=== PATIENT | female | born 1960 | race Caucasian/White ===

== ENCOUNTER 2016-07-21 16:36 | Emergency (ER) | payer OTHER ==
[~2016-07-21] VITALS: Wt 61.2 kg
[~2016-07-21 16:36] MED LIST: ABILIFY5 MG PO; ADVAIR 250/501 EA INH; ALBUTEROL0.09 MG/A2 IH; ALBUTEROL0.09 MG/A2 INH; ALBUTEROL2.5 MG/0.5 INH; AMBIEN10 MG PO; AMOXICILLIN500 MG PO; ATIVAN0.5 MG PO; ATIVAN1 MG PO; BREO ELLIPTA 11 EACH IH; CALCIUM600 M1 PO; CARAFATE1 G1 PO; CIPRO500 MG; CIPRO500 MG PO; CLARITIN10 MG PO; COMBIVENT RESPIM4 GM INH; COMBIVENT1 ARO IH; CYCLOBENZAPRINE10 MG PO; CYMBALTA60 M1 PO; CYMBALTA60 MG PO; DELTASONE10 MG PO; DITROPAN XL15 M1 PO; DOXEPIN25 MG PO; DOXYCYCLINE MO100 MG PO; DOXYCYCLINE100 M3 PO; EPIPEN 2-PAK1 MG/ML IJ; ESTRACE0.5 MG PO; EVISTA60 MG PO; HYDROCODONE BIT1 T11 PO; IBU800 M1 PO; K-DUR 2020 MEQ PO; K-TAB10 MEQ PO; KEFLEX500 MG PO; LAMICTAL100 MG; LAMICTAL200 MG PO; LASIX20 MG PO; LEVAQUIN750 M1 PO; LEXAPRO20 MG PO; LITHIUM CARBON150 MG PO; MACROBID100 M1 PO; MEDROL DOSEPAK4 MG PO; MELATONIN5 M1 SL; MELATONIN5 MG; MINIPRESS2 M1 PO; MOTRIN800 MG PO; Motrin,Rufen800 MG PO; NATURE'S BLEND F1 MG PO; NEURONTIN300 MG PO; NEURONTIN600 MG PO; NICODERM C21 MG/24 H TD; NICOTINE T21 MG/24 H T; NORCO 325 MG-51 TAB PO; NORCO 5-325 TA1 EACH PO; NYSTATIN100000 U/M PO; OMEPRAZOLE20 MG PO; ORASONE10 MG PO; OSCAL/D,OYSTER250 MG PO; OXYBUTYNIN ER15 MG PO; OXYGEN NAS; OYSTER SHELL C1 EAC3 PO; PERCOCET 325 MG1 TA2 PO; PREDNICOT20 MG PO; PREDNISONE10 MG PO; PREDNISONE20 MG PO; PREDNISONE50 MG PO; PROAIR HFA8.5 GM INH; PROVENTIL0.09 MG/AC IH; QVAR 80MCG/INH7.3 G1 IH; ROBITUSSIN AC 110 ML PO; SPIRIVA18 MCG IH; SYMBICORT1 AE1 INH; TRAMADOL HCL50 MG PO; VALIUM10 MG PO; VENTOLIN 02.5 MG/3 M INH; VICODIN 5/500 505 MG PO; VICODIN ES 7501 TAB PO; VICODIN1 TAB PO; VISTARIL25 MG PO; VISTARIL50 MG; VITAMIN D50000 UNIT PO; Ventolin 02.5 MG/3 M INH; ZANAFLEX4 M2 PO; ZITHROMAX Z PA250 MG PO; ZITHROMAX250 MG PO; ZOFRAN ODT4 MG SL; ZOFRAN4 MG PO; Zofran4 MG PO
[2016-07-21 16:39] VITALS: BP 120/65
== END 2016-07-21 18:03 | disposition home or self-care (01) ==
LOC: ED 16:36
DX: G43.909 Migraine, unspecified, not intractable, without status migrainosus (principal); F17.200 Nicotine dependence, unspecified, uncomplicated; Z88.1 Allergy status to other antibiotic agents; Z88.6 Allergy status to analgesic agent; Z90.49 Acquired absence of other specified parts of digestive tract; Z79.899 Other long term (current) drug therapy

== ENCOUNTER → 2016-08-13 | Emergency (ER) | payer OTHER ==
[~2016-08-13] VITALS: Ht 165.1 cm; Wt 63.5 kg
[~2016-08-13] MED LIST changes: +VIBRAMYCIN100 MG PO
--- NOTE | ~2016-08-13 | WRIGHTHP ---
[place], [place] PATIENT HISTORY AND PHYSICAL EXAM NAME: GABRIELA GARNER UNIT #: [id number] ROOM: 412 DOCTOR: MICKI BROWN DO BIRTHDATE: [birth year] DOS: 08/13/2016 The patient left AMA from the Emergency Room and was not admitted to the hospitalist service. MICKI BROWN DO CM:HISPHYS:PATIENT HISTORY AND PHYSICAL EXAMINATION 41 20 MICKI BROWN DO 08/13/161921 interface
[2016-08-13 12:27] VITALS: BP 117/81
[2016-08-13 13:05] LABS: BASO % 0.5 % (0.0-1.0); EOS # 0.1 10*3/uL (0.0-0.4); EOS % 0.6 % (1.0-4.0); HEMATOCRIT 44.3 % (37.0-47.0); HEMOGLOBIN 14.9 g/dl (12.0-16.0); LYMPH # 1.3 10*3/uL (1.3-4.4); MEAN CELL VOLUME 90.6 fl (81.0-99.0); MEAN CORPUSCULAR HGB 30.5 pg (27.0-31.0); MEAN CORPUSCULAR HGB CONC 33.6 g/dl (33.0-37.0); MEAN PLATELET VOLUME 9.8 fl (9.6-12.3); MONO # 0.7 10*3/uL (0.1-1.0); MONO % 8.3 % (3.0-9.0); NEUT # 5.8 10*3/uL (2.3-7.9); NEUT % 74.3 % (47.0-73.0); PLATELET COUNT AUTOMATED 340 10*3/uL (130-400); RED BLOOD COUNT 4.89 10*6/uL (4.10-5.10); RED CELL DISTRI WIDTH 13.8 % (0-14.5); WHITE BLOOD COUNT 7.8 10*3/uL (4.8-10.8)
[2016-08-13 13:13] LABS: INTERNATIONAL NORM RATIO 0.9 (2.0-3.5)
[2016-08-13 13:20] LABS: ALBUMIN 3.9 gm/dl (3.1-4.5); ALKALINE PHOSPHATASE 91 U/L (45-117); BILIRUBIN, TOTAL 0.3 mg/dl (0.2-1.0); BUN 12 mg/dl (7-24); C-REACTIVE PROTEIN 1.47 MG/DL (0-0.3); CARBON DIOXIDE 25 mmol/L (21-32); CHLORIDE 105 mmol/L (98-107); EST GLOM FILT AFRICAN AMERICAN > 60 ml/min; GLUCOSE 90 mg/dL (65-99); MAGNESIUM 2.2 mg/dL (1.5-2.1); POTASSIUM 4.2 mmol/L (3.5-5.1); SGOT/AST 16 IU/L (3-35); SGPT/ALT 21 U/L (12-78); SODIUM 140 mmol/L (136-145); TOTAL PROTEIN 7.7 gm/dL (6.4-8.2)
[2016-08-13 13:21] LABS: TROPONIN I < 0.015 ng/ml (<0.045)
[2016-08-13 13:34] VITALS: BP 99/50
== END ==
LOC: ED 12:05 → EDHOLD 14:41 → ED 14:41 → 4E 15:36 → EDHOLD 15:36 → 4E 16:26
PROVIDERS: Student in an Organized Health Care Education/Training Program
DX: R07.9 Chest pain, unspecified (principal); F17.210 Nicotine dependence, cigarettes, uncomplicated; G89.29 Other chronic pain; Z53.21 Procedure and treatment not carried out due to patient leaving prior to being seen by health care provider; M54.9 Dorsalgia, unspecified; Z88.6 Allergy status to analgesic agent; Z88.8 Allergy status to other drugs, medicaments and biological substances; Z90.710 Acquired absence of both cervix and uterus; Z90.49 Acquired absence of other specified parts of digestive tract; Z98.42 Cataract extraction status, left eye; Z98.41 Cataract extraction status, right eye; Z82.49 Family history of ischemic heart disease and other diseases of the circulatory system

== ENCOUNTER 2016-08-14 23:34 | Emergency (ER) | payer OTHER ==
[~2016-08-14] VITALS: Ht 167.6 cm; Wt 63.5 kg
[~2016-08-14 23:34] MED LIST changes: -VIBRAMYCIN100 MG PO
[2016-08-15 00:51] VITALS: BP 111/64
[2016-08-15] MEDS ORDERED: HYDROCODONE BIT1 T11 PO (01:52)
[2016-08-15] MEDS ORDERED: VIBRAMYCIN100 MG PO (01:52)
== END 2016-08-15 02:31 | disposition home or self-care (01) ==
LOC: ED 23:34
DX: S22.32XA Fracture of one rib, left side, initial encounter for closed fracture (principal); J44.1 Chronic obstructive pulmonary disease with (acute) exacerbation; F17.200 Nicotine dependence, unspecified, uncomplicated; Z88.6 Allergy status to analgesic agent; Z88.8 Allergy status to other drugs, medicaments and biological substances; Z79.899 Other long term (current) drug therapy; X58.XXXA Exposure to other specified factors, initial encounter; Y93.9 Activity, unspecified; Y92.9 Unspecified place or not applicable; Y99.9 Unspecified external cause status

== ENCOUNTER 2016-08-23 22:54 | Emergency (ER) | payer OTHER ==
[~2016-08-23] VITALS: Ht 167.6 cm; Wt 63.5 kg
[~2016-08-23 22:54] MED LIST changes: +VIBRAMYCIN100 MG PO
[2016-08-23 23:04] VITALS: BP 129/77
[2016-08-24] MEDS ORDERED: CYCLOBENZAPRINE10 MG PO (00:23)
[2016-08-24] MEDS ORDERED: PERCOCET 325 MG1 TA2 PO (00:23)
[2016-08-25] MEDS ORDERED: PERCOCET 325 MG1 TA2 PO (02:52)
== END 2016-08-24 00:26 | disposition home or self-care (01) ==
LOC: ED 22:54
DX: S22.32XD Fracture of one rib, left side, subsequent encounter for fracture with routine healing (principal); F17.210 Nicotine dependence, cigarettes, uncomplicated; Z88.6 Allergy status to analgesic agent; Z79.899 Other long term (current) drug therapy

== ENCOUNTER 2016-08-24 23:51 | Emergency (ER) | payer OTHER ==
[~2016-08-24] VITALS: Ht 167.6 cm; Wt 63.5 kg
[2016-08-24 23:56] VITALS: BP 110/77
[2016-08-25 00:26] LABS: BASO # 0.1 10*3/uL (0.0-0.1); BASO % 0.7 % (0.0-1.0); EOS # 0.1 10*3/uL (0.0-0.4); HEMATOCRIT 40.3 % (37.0-47.0); HEMOGLOBIN 13.3 g/dl (12.0-16.0); LYMPH # 3.5 10*3/uL (1.3-4.4); LYMPH % 29.4 % (27.0-41.0); MEAN CELL VOLUME 92.9 fl (81.0-99.0); MEAN CORPUSCULAR HGB 30.6 pg (27.0-31.0); MEAN PLATELET VOLUME 9.8 fl (9.6-12.3); MONO # 0.7 10*3/uL (0.1-1.0); MONO % 5.7 % (3.0-9.0); NEUT # 7.5 10*3/uL (2.3-7.9); PLATELET COUNT AUTOMATED 419 10*3/uL (130-400); RED BLOOD COUNT 4.34 10*6/uL (4.10-5.10); RED CELL DISTRI WIDTH 13.8 % (0-14.5); WHITE BLOOD COUNT 11.8 10*3/uL (4.8-10.8)
[2016-08-25 00:44] LABS: ALBUMIN 3.8 gm/dl (3.1-4.5); ALKALINE PHOSPHATASE 103 U/L (45-117); BILIRUBIN, TOTAL 0.2 mg/dl (0.2-1.0); BUN 12 mg/dl (7-24); CARBON DIOXIDE 29 mmol/L (21-32); CHLORIDE 105 mmol/L (98-107); CKMB 2.5 ng/ml (0.5-3.6); CPK 550 U/L (26-192); EST GLOM FILT AFRICAN AMERICAN > 60 ml/min; GLUCOSE 96 mg/dL (65-99); LDH 190 U/L (84-246); MAGNESIUM 1.7 mg/dL (1.5-2.1); POTASSIUM 3.9 mmol/L (3.5-5.1); SGOT/AST 22 IU/L (3-35); SGPT/ALT 17 U/L (12-78); SODIUM 140 mmol/L (136-145); TOTAL PROTEIN 7.4 gm/dL (6.4-8.2)
[2016-08-25 00:46] LABS: TROPONIN I < 0.015 ng/ml (<0.045)
[2016-08-25] MEDS ORDERED: PERCOCET 325 MG1 TA2 PO (02:52)
== END 2016-08-25 03:19 | disposition home or self-care (01) ==
LOC: ED 23:51
PROVIDERS: Physician Assistant
DX: M48.50XA Collapsed vertebra, not elsewhere classified, site unspecified, initial encounter for fracture (principal); S22.32XA Fracture of one rib, left side, initial encounter for closed fracture; J44.9 Chronic obstructive pulmonary disease, unspecified; G43.909 Migraine, unspecified, not intractable, without status migrainosus; F41.9 Anxiety disorder, unspecified; F32.9 Major depressive disorder, single episode, unspecified; F17.200 Nicotine dependence, unspecified, uncomplicated; Z88.6 Allergy status to analgesic agent; Z88.8 Allergy status to other drugs, medicaments and biological substances; Z79.899 Other long term (current) drug therapy; X58.XXXA Exposure to other specified factors, initial encounter; Y93.89 Activity, other specified; Y92.9 Unspecified place or not applicable; Y99.9 Unspecified external cause status

== ENCOUNTER 2016-09-17 08:08 | Emergency (ER) | payer OTHER ==
[~2016-09-17] VITALS: Ht 167.6 cm; Wt 63.5 kg
[2016-09-17 08:13] VITALS: BP 132/63
[2016-09-17] MEDS ORDERED: PREDNISONE50 MG PO (08:27)
== END 2016-09-17 09:22 | disposition home or self-care (01) ==
LOC: ED 08:08
DX: M54.32 Sciatica, left side (principal); F17.200 Nicotine dependence, unspecified, uncomplicated; G89.29 Other chronic pain; J44.9 Chronic obstructive pulmonary disease, unspecified; F32.9 Major depressive disorder, single episode, unspecified; G43.909 Migraine, unspecified, not intractable, without status migrainosus; F41.1 Generalized anxiety disorder; M19.90 Unspecified osteoarthritis, unspecified site; E55.9 Vitamin D deficiency, unspecified; Z85.828 Personal history of other malignant neoplasm of skin; Z98.890 Other specified postprocedural states; Z79.899 Other long term (current) drug therapy; Z88.5 Allergy status to narcotic agent; Z88.6 Allergy status to analgesic agent

== ENCOUNTER → 2017-01-10 | Outpatient (CLI) | payer OTHER ==
[2017-01-10 13:21] LABS: BASO # 0.1 10*3/uL (0.0-0.1); EOS # 0.1 10*3/uL (0.0-0.4); EOS % 1.2 % (1.0-4.0); HEMATOCRIT 38.4 % (37.0-47.0); HEMOGLOBIN 12.8 g/dl (12.0-16.0); LYMPH % 32.1 % (27.0-41.0); MEAN CELL VOLUME 95.5 fl (81.0-99.0); MEAN CORPUSCULAR HGB 31.8 pg (27.0-31.0); MEAN CORPUSCULAR HGB CONC 33.3 g/dl (33.0-37.0); MEAN PLATELET VOLUME 9.8 fl (9.6-12.3); MONO # 0.5 10*3/uL (0.1-1.0); MONO % 5.4 % (3.0-9.0); NEUT # 5.5 10*3/uL (2.3-7.9); NEUT % 60.1 % (47.0-73.0); PLATELET COUNT AUTOMATED 445 10*3/uL (130-400); RED BLOOD COUNT 4.02 10*6/uL (4.10-5.10); WHITE BLOOD COUNT 9.2 10*3/uL (4.8-10.8)
[2017-01-10 13:50] LABS: ALKALINE PHOSPHATASE 106 U/L (45-117); BUN 9 mg/dl (7-24); CHLORIDE 100 mmol/L (98-107); CREATININE 0.99 mg/dL (0.55-1.02); POTASSIUM 3.9 mmol/L (3.5-5.1); SGOT/AST 18 IU/L (3-35); SGPT/ALT 34 U/L (12-78); SODIUM 139 mmol/L (136-145); TOTAL PROTEIN 7.9 gm/dL (6.4-8.2)
== END | disposition home or self-care (01) ==
LOC: LAB 13:03
PROVIDERS: Family Medicine
DX: R07.9 Chest pain, unspecified (principal); E55.9 Vitamin D deficiency, unspecified; R53.82 Chronic fatigue, unspecified; R06.2 Wheezing

== ENCOUNTER → 2017-02-19 | Outpatient (CLI) | payer OTHER ==
[2017-02-20 08:14] LABS: ALPHA-1-ANTITRYPSIN, SERUM 147 mg/dL (90-200)
== END | disposition home or self-care (01) ==
LOC: LAB 10:10
PROVIDERS: Internal Medicine Critical Care Medicine
DX: J44.9 Chronic obstructive pulmonary disease, unspecified (principal)

== ENCOUNTER 2017-03-05 09:12 | Inpatient (IN) | payer OTHER ==
[~2017-03-05] VITALS: Ht 170.2 cm; Wt 69.6 kg
--- NOTE | ~2017-03-05 | CON ---
[place], [place] REPORT OF CONSULTATION NAME: GABRIELA GARNER [facility] #: [id number] UNIT #: [id number] ROOM: 532 DOCTOR: RUDI LARSEN MD BIRTHDATE: [birth year] DOS: 03/06/2017 ADDENDUM NOTE PULMONARY CONSULTATION, EVALUATION AND MANAGEMENT The consultation requested by the hospitalist services. The patient was independently seen and examined today. History was personally taken from the patient; physical examination performed. All the labs were reviewed. Assessment and management were personally completed for today's visit. The note done by the medical scientist was approved as well. REASON FOR CONSULTATION: Assess the patient for ongoing COPD exacerbation and other respiratory symptoms. HISTORY OF PRESENT ILLNESS: This is a 56-year-old female who has been admitted to the hospital under the hospitalist services on 03/05/2017. She presented to the Emergency Room because of progressive increased symptoms of shortness of breath occurring for the past few days. The symptoms were noted progressively worsened. She also developed a cough, which has been noted severe and nonproductive. She has been expectorating only small amount of scanty sputum, which was described to be thick and tenacious with a hard cough at times. She denies any symptoms of chest pain. Denies symptoms of hemoptysis. The patient denies any symptoms of chest trauma. The wheezing has been noted actively on admission. REVIEW OF SYSTEMS: Already completed by the medical scientist. PAST MEDICAL HISTORY: Known with history of: 1. Centrilobular emphysema for the patient, which was noted as severe with FEV1 of 48% with her assessment in my office on 02/18/2017. 2. History of allergic rhinitis. 3. History of generalized anxiety disorder and depression. PAST SURGICAL HISTORY: 1. Noted with complete hysterectomy for this patient in 2011. 2. Appendectomy in 1972. 3. Lumbar laminectomy. SOCIAL HISTORY: The patient is and lives at home. Smoking noted from the age of [age] years old, smoking up to 1.5 pack of cigarettes per day, for the past few days smoking about 5 cigarettes or less per day as per patient. Denies any history of alcohol use or illicit drug use or occupation related pulmonary exposure. She is , has 2 children, lives at home. FAMILY HISTORY: The patient's father at 73 with complication of COPD. The mother at the age of 6565 years old, complication related to the congestive heart failure. HOME MEDICATIONS: Listed at the time of admission use of Zanaflex, DuoNeb, [place], [place] REPORT OF CONSULTATION NAME: GABRIELA GARNER UNIT #: [id number] ROOM: [facility] DOCTOR: XIOMY GONSALEZ MD,[facility] BIRTHDATE: [birth year] vitamin D, hydroxyzine, Prazosin, ibuprofen, Oxybutynin ER, albuterol sulfate for this patient with the nebulizer p.r.n., loratadine, gabapentin, oxygen supplementation p.r.n. use 3 liters, Breo Ellipta, Lexapro, Vicodin-ES, Rexulti, Ativan 1 mg t.i.d. DRUG ALLERGY HISTORY: Noted as allergy to: 1. MORPHINE. 2. NAPROXEN 3. DAYPRO. PHYSICAL EXAMINATION: GENERAL: This is a 56-year-old female who has been currently sitting on the bed without any acute distress at this time. Height for the patient noted 5 feet 7 inches, weight 153 pounds, BMI 24. VITAL SIGNS: Normal temperature, respiratory rate of 16-20, heart rate 77-110, blood pressure 145/55-160/88. Pulse oxygen saturation of the patient recorded as 96% saturation on room air. HEENT: Head was atraumatic. Eyes nonicterus. NECK: Supple. CARDIOVASCULAR: S1, S2 audible. LUNGS: Noted with diffuse reduction in breath sounds bilaterally with expiratory wheezing in the lungs bilaterally. ABDOMEN: Soft, nontender. Bowel sounds present. EXTREMITIES: The patient was noted without any acute edema, clubbing or cyanosis. CENTRAL NERVOUS SYSTEM: Cranial nerves 2-12 intact. MUSCULOSKELETAL: No deformities. SKIN: No lesions or rashes. LABORATORY DATA: CBC of the patient on admission yesterday, WBC count 12.0. Remaining CBC normal. Lactic acid 1.5 yesterday. CMP of 03/05/2017, normal BUN and creatinine, troponin as well as LFTs. BMP this morning, glucose 177, normal BUN and creatinine. The PT, PTT this morning was normal. Troponin second and third sets yesterday were noted completely normal. One view chest x-ray of patient of 03/05/2017 was personally reviewed, shows changes of COPD and hyperinflation without any acute pulmonary infiltration. IMPRESSION: 1. The patient who has been currently admitted to the hospital noted with acute severe exacerbation of chronic obstructive pulmonary disease and acute tracheobronchitis. 2. Chronic heavy nicotine dependence as well. 3. History of general anxiety, depression. 4. Steroid-induced hyperglycemia. 5. Severe nonproductive cough, which has been noted progressive with possibility of mucus impaction of major airways. PLAN OF TREATMENT: Continue current dose of corticosteroids, bronchodilators, and oxygen supplementation and the other treatment as prescribed. The patient has been receiving Solu-Medrol 60 mg q.8 hours, which remains the same. [place], [place] REPORT OF CONSULTATION NAME: GABRIELA GARNER UNIT #: [id number] ROOM: 532 DOCTOR: XIOMY GONSALEZ MD,[facility] BIRTHDATE: [birth year] Continue noninvasive treatment for the patient to help clear the mucus of major airways with use of flutter valve and Mucinex. Ordered bronchoscopy, planned to be done in the morning. The patient discussed risks and benefits. She was agreeable for the procedure. All other treatment plan to be continued as well as previously. Usual care. Supportive plan of management and care. This consult note is to be attached to the one dictated by Dr. Stauffer. REASON FOR PULMONARY CONSULTATION: Shortness of breath. CHIEF COMPLAINT: Breath, chest heaviness. HISTORY OF PRESENT ILLNESS: The patient is a 56-year-old female with a history of COPD. She presents with complaints of worsening shortness of breath and chest tightness over the past several days. She states that she feels the chest tightness, worsens with exertion. She also complains of cough that is nonproductive. She is using oxygen at home with 3 liters in the evening as needed during the day. She is a smoker, but she has been attempting to quit and has recently decreased number of total cigarettes to about 5 cigarettes a day. She denies any vomiting, diarrhea, blurred vision, dysuria, fevers, any other symptoms. PAST MEDICAL HISTORY: Significant for chronic back pain, COPD, depression, fatty liver, folate deficiency, anxiety, chronic migraines, normocytic anemia, sciatica, syncope, vitamin D deficiency, small bowel obstruction, seasonal allergies. PAST SURGICAL HISTORY: Positive for back surgery, LEEP procedure, appendectomy, bilateral cataract extraction, hysterectomy, shoulder surgery twice on the right side. SOCIAL HISTORY: Does not drink drugs, but she is smoking and has done so for 40 years; however, is attempting to quit. FAMILY HISTORY: Significant for a sister who has lupus. Mother is at the age of 65 from heart disease. Father is as well at the age of 74 from respiratory failure. ALLERGIES: MORPHINE, NAPROXEN AND DAYPRO. HOME MEDICATIONS: She is currently on albuterol, vitamin D, calcium carbonate, Lexapro, Breo Ellipta, folic acid, Neurontin, Patterson, hydroxyzine, Motrin as needed, albuterol, loratadine, ____, oxybutynin, 3 liters of oxygen as needed, potassium tablets and Minipress, Rexulti and Zanaflex. REVIEW OF SYSTEMS: GENERAL: Denies fevers or chills. HEENT: Denies any change in vision, hearing loss ____ ear or nose pain. CARDIOVASCULAR: Denies any diaphoresis, palpitation, but she does admit chest pain/pressure. [place], [place] REPORT OF CONSULTATION NAME: GABRIELA GARNER UNIT #: [id number] ROOM: [facility] DOCTOR: XIOMY GONSALEZ MD,[facility] BIRTHDATE: [birth year] RESPIRATORY: Reports shortness of breath, cough, dyspnea on exertion and occasional production of sputum, but denies hemoptysis. ABDOMINAL: Denies any vomiting, diarrhea, chest pain, blood in stools. NEUROLOGIC: Denies lightheadedness, dizziness or confusion. GENITOURINARY: Denies dysuria or hematuria. PSYCHIATRIC: Denies any drug dependence, ____ depression and anxiety chronic in nature. ENDOCRINE: Denies polydipsia, denies heat or cold intolerance. SKIN: Denies any new lesions or rashes. PHYSICAL EXAMINATION: VITAL SIGNS: Temperature is 97.8, pulse is 77, respiratory rate is 18, blood pressure is 116/88, bedside pulse oximetry 98% on 2 liters nasal cannula. GENERAL APPEARANCE: Awake, alert, oriented, not in acute distress. HEAD: Normocephalic, atraumatic. EYES: PERRL. No lesions, no ulcerations, nonicteric. ENT: No lesions, no scars, no masses. Naris is patent. Oropharynx is clear. NECK: Without lesions, without masses, no ulcerations and trachea is midline. HEART: Regular rate and rhythm. No murmurs. No edema in lower extremities. LUNGS: Cough. Positive diminished lung sounds bilaterally with some scattered wheezes. No clear rhonchi. ABDOMEN: Soft, nontender, nondistended. EXTREMITIES: No clubbing, erythema or edema. NEUROLOGIC: Grossly intact. No focal deficits. PSYCHOLOGICAL: Good historian with good remote and recent memory. SKIN: Warm and dry, no rashes, no ulcerations. LABORATORY DATA: 1. CBC: WBC is 12.1, hemoglobin 10.9, hematocrit 32.7 and platelet count is 450. 2. Coagulation: PT 9.9, INR is 0.9, APTT 23.6. 3. Chemistries: CMP; sodium is 141, potassium is 4.1, carbon dioxide is 26, BUN is 12, creatinine is 0.82, estimated GFR is more than 60, glucose is 177, A1c is 5.4, magnesium 2.0, calcium 8.5, troponin less than 0.015. Triglycerides 96, cholesterol 179, LDL 106, VLDL 19, HDL 54. Vitamin B12 is 410, vitamin D 25-hydroxy is 26.5, folate is 21.66. TSH is 0.334. 4. Microbiology cultures are pending without any results at this time. 5. Chest x-ray showed no acute cardiopulmonary abnormalities per the radiologist's read. ASSESSMENT AND PLAN: 1. Acute bronchitis with chronic obstructive pulmonary disease exacerbation. 2. Tobacco abuse. 3. Sepsis. TREATMENT PLAN Continue with current Solu-Medrol at 60 q. 8, azithromycin, Rocephin, DuoNeb. Cultures are pending. Plan is to do a bronchoscopy tomorrow and please see Dr. Stauffer's note for further details. [place], [place] REPORT OF CONSULTATION NAME: GABRIELA GARNER UNIT #: [id number] ROOM: 532 DOCTOR: RUDI LARSEN MD BIRTHDATE: [birth year] RUDI STAUFFER MD CM:CONSTR:REPORT OF CONSULTATION 1353 03/07/17 0709 interface
--- NOTE | ~2017-03-05 | EKG ---
[place], [place] ELECTROCARDIOGRAM REPORT NAME: GABRIELA GARNER UNIT #: [id number] ROOM: 532 DOCTOR: XIOMY GONSALEZ MD,RUDI BIRTHDATE: [birth year] DOS: 03/05/2017 ELECTROCARDIOGRAM REPORT TIME: 0924 a.m. Normal sinus rhythm noted. Heart rate of 85 beats per minute with nonspecific ST-T changes and isolated PVC. RUDI STAUFFER MD CM:EKGRPT:ELECTROCARDIOGRAM REPORT [id number] RUDI GONSALEZ MD
--- NOTE | ~2017-03-05 | PROC NOTE ---
[place], [place] PROCEDURE NOTE NAME[facility] [id number] UNIT #: [id number] ROOM: 532 DOCTOR: XIOMY GONSALEZ MD,RUDI BIRTHDATE: [birth year] DOS: 03/07/2017 PREOPERATIVE DIAGNOSES: Persistent severe nonresolving cough for the patient with wheezing as well as shortness of breath. POSTOPERATIVE DIAGNOSES: Severe infection of the mucus plugs ____ endobronchial tree bilaterally. FINDINGS: Acute tracheobronchitis noted as well. There were no endobronchial obstructive lesions. PROCEDURE DESCRIPTION: Informed consent obtained for the patient. The patient brought to the OR and placed in supine position. Conscious sedation administered by the Anesthesia Department. After achieving appropriate sedation, airway introduced into the mouth. Bronchoscope advanced into the airway into laryngeal area. Epiglottis and vocal cords were seen. Vocal cords were moving symmetrically with movements. Bronchoscope advanced to the vocal cords into the tracheal lumen, noted moderate amount of very thick mucus secretion with some purulent secretions suctioned. All the secretions suctioned out with the help of normal saline wash. The brian was noted sharp. Right upper, right middle, right lower, left upper, lingular lower lobe bronchi were all examined. Thick plugs of the mucus were present in endobronchial tree bilaterally, suctioned out clear with normal saline wash, sent for culture. Procedure was tolerated by the patient without any complications. Postoperative findings will be discussed with the patient once the patient recovered the effects of acute sedation. RUDI STAUFFER MD CM:PROCNOTE:PROCEDURE NOTE [id number] RUDI GONSALEZ MD
--- NOTE | ~2017-03-05 | PR ---
[place], [place] PROGRESS NOTE NAME: GABRIELA GARNER [facility] #: [id number] UNIT #: [id number] ROOM: 532 DOCTOR: XIOMY GONSALEZ MD,RUDI BIRTHDATE: [birth year] DOS: 03/08/2017 SUBJECTIVE: The patient has been noted comfortable at this time without any distress. Bronchoscopy completed yesterday with marked improvement in the respiratory symptoms of cough was noted. Shortness of breath and wheezing was also noted significantly improved. OBJECTIVE: VITAL SIGNS: Blood pressure recorded 157/83, respiratory rate 20, heart rate 85 with a normal temperature. Pulse oxygen saturation on room air 95% saturation. HEENT: No new change. NECK: Supple. CARDIOVASCULAR: S1, S2 audible. LUNGS: Without any wheezing or crackles at this time. ABDOMEN: Soft, nontender. LABORATORY DATA: CBC: WBC count 16.6, hemoglobin 10.2, hematocrit 30.5, platelet count normal, WBC count normal, Gram stain bronchial washing, many white blood cells, few epithelial cells, few gram-positive cocci in clusters. Culture preliminary normal alexandra with bronchial washing, final results were pending. IMPRESSION: The patient with progressive resolution of acute exacerbation of chronic obstructive pulmonary disease, acute tracheobronchitis including cough post-bronchoscopy. PLAN OF TREATMENT: She could be considered for home discharge on oral antibiotics of the patient and tapering prednisone. No additional changes in the treatment needs to be done. Other supportive plan of care and management. RUDI STAUFFER MD CM:PNTRANS [id number] RUDI GONSALEZ MD 03/09/17 0509 interface
--- NOTE | ~2017-03-05 | PR ---
[place], [place] PROGRESS NOTE NAME: GABRIELA GARNER UNIT #: [id number] ROOM: 532 DOCTOR: CHANG LAMA DO BIRTHDATE: [birth year] DOS: 03/07/2017 SUBJECTIVE: The patient was evaluated today. She is awake, alert and in no acute distress. She states that her breathing feels like it is improved; however, she is still coughing and feels good. Denies any chest pain. Denies any nausea, vomiting or diarrhea. Has been n.p.o. since midnight. OBJECTIVE: VITAL SIGNS: Most recent vital signs, pulse was 85, respiratory rate 20, blood pressure 130/72, and bedside pulse oximetry 95% on room air. GENERAL: The patient is alert, awake, oriented, in no acute distress. PULMONARY: Rhonchi and rales could be heard bilaterally. There is some scattered wheezes. Lung sounds are diminished bilaterally. CARDIOVASCULAR: S1, S2 can be heard. Regular rate and rhythm. ABDOMEN: Nondistended, nontender. NEUROLOGIC: No acute neuro deficits. PSYCHOLOGICAL: Normal mood, normal affect. EXTREMITIES: No edema, erythema. LABORATORY DATA: CBC: WBC is 18.5, HGB 10.8, HCT 33.1, and platelets are 462. Sodium is 144, potassium 4.2, chloride 109, carbon dioxide 24, BUN 12, creatinine 0.68, GFR approximately more than 60, glucose 120, calcium 8.9. Blood cultures negative so far. IMPRESSION AND PLAN: 1. Exacerbation of chronic obstructive pulmonary disease with acute bronchitis. 2. Sepsis. 3. Tobacco abuse. We will continue with the treatment with steroids, azithromycin, Rocephin, and DuoNeb. Cultures are pending. Bronchoscopy was done earlier today. We will reevaluate tomorrow. AMER DO DAINA [place], [place] PROGRESS NOTE NAME: GABRIELA GARNER UNIT #: [id number] ROOM: 532 DOCTOR: CHANG LAMA DO BIRTHDATE: [birth year] RUDI STAUFFER MD CM:MAGDALENA [id number] CHANG LAMA DO 03/10/17 1052 interface
--- NOTE | ~2017-03-05 | PR ---
[place], [place] PROGRESS NOTE NAME: GABRIELA GARNER UNIT #: [id number] ROOM: 532 DOCTOR: RUDI LARSEN MD BIRTHDATE: [birth year] DOS: 03/07/2017 SUBJECTIVE: The patient was independently seen and examined with [id number] encounter. The patient was confirmed, physical examination performed, all the labs were reviewed. Any changes in medical management personally done for this patient in today's visit. The note done by the medical equipment sales was approved. She has been treated at this time for the acute exacerbation of COPD, remains with the same symptoms. The patient has suggested without any changes with severe nonproductive cough, inability to expectorate much sputum. Denies symptoms of chest pain, shortness of breath. The patient also remains about the same. OBJECTIVE: VITAL SIGNS: Recorded shows a normal temperature, respiratory rate 19, heart rate 84, blood pressure 155/68, pulse, oxygen saturation recorded as 96% saturation on room air. HEENT: Shows no new change. NECK: Supple. CARDIOVASCULAR: S1, S2 is audible. LUNGS: Noted general reduction in breath sounds, expiratory wheezing, no crackles. ABDOMEN: Soft, nontender. LABORATORY DATA: BMP was noted as normal. CBC this morning, WBC count 18.5, hemoglobin 10.8, hematocrit 33.1, platelet count of 462,000. IMPRESSION: 1. Acute severe exacerbation of chronic obstructive pulmonary disease with acute tracheobronchitis worsening leukocytosis, most likely steroid effect. Preoperative bronchoscopy already noted n.p.o. 2. History of chronic nicotine dependence. PLAN OF MANAGEMENT: Proceed with the bronchoscopy as planned without any changes. All other supportive therapy, plan of management to be continued as previously. Usual care, other supportive, plan of therapy and other treatment as well. Addition of treatment changes will be made based on the progression of the illness. [place], [place] PROGRESS NOTE NAME: GABRIELA GARNER UNIT #: [id number] ROOM: 532 DOCTOR: RUDI LARSEN MD BIRTHDATE: [birth year] RUDI STAUFFER MD CM:PNTRANS [id number] RUDI GONSALEZ MD 03/07/17 1123 interface
[2017-03-05 09:18] VITALS: BP 142/66
[2017-03-05 09:29] VITALS: BP 121/75
[2017-03-05] MEDS ORDERED: NORCO 7.5-3251 EACH PO (09:44)
[2017-03-05] MEDS ORDERED: REXULTI3 MG PO (09:45)
[2017-03-05 09:49] LABS: BASO # 0.1 10*3/uL (0.0-0.1); BASO % 0.7 % (0.0-1.0); EOS # 0.1 10*3/uL (0.0-0.4); EOS % 0.9 % (1.0-4.0); HEMOGLOBIN 12.4 g/dl (12.0-16.0); LYMPH % 24.8 % (27.0-41.0); MEAN CELL VOLUME 95.9 fl (81.0-99.0); MEAN CORPUSCULAR HGB 32.1 pg (27.0-31.0); MEAN CORPUSCULAR HGB CONC 33.5 g/dl (33.0-37.0); MEAN PLATELET VOLUME 9.5 fl (9.6-12.3); MONO # 0.9 10*3/uL (0.1-1.0); MONO % 7.4 % (3.0-9.0); NEUT # 7.9 10*3/uL (2.3-7.9); NEUT % 65.9 % (47.0-73.0); PLATELET COUNT AUTOMATED 459 10*3/uL (130-400); RED BLOOD COUNT 3.86 10*6/uL (4.10-5.10); RED CELL DISTRI WIDTH 12.9 % (0-14.5)
[2017-03-05 10:01] LABS: ACT PARTIAL THROMBO TIME 26.3 SECONDS (20.8-31.5); INTERNATIONAL NORM RATIO 0.9 (2.0-3.5)
[2017-03-05 10:08] LABS: ALBUMIN 3.7 gm/dl (3.1-4.5); ALKALINE PHOSPHATASE 112 U/L (45-117); BUN 11 mg/dl (7-24); CHLORIDE 105 mmol/L (98-107); CREATININE 0.83 mg/dL (0.55-1.02); SGOT/AST 11 IU/L (3-35); SGPT/ALT 21 U/L (12-78); SODIUM 139 mmol/L (136-145); TOTAL PROTEIN 7.6 gm/dL (6.4-8.2)
[2017-03-05 10:09] LABS: TROPONIN I < 0.015 ng/ml (<0.045)
[2017-03-05 12:10] VITALS: BP 142/65
--- NOTE | 2017-03-05 12:10 | NUR ---
A 56, admitted to , under the services of BRITTANI Núñez DO with a diagnosis of COPD,CHEST HEAVINESS,BRONCHITIS. Chief complaint is SHORTNESS OF BREATH. Patient arrived via bed from ER. Monitor applied. Initial assessment completed. Vital signs taken and recorded. BRITTANI NÚÑEZ DO notified of admission to the unit. Orders received. See assessment for past medical history, medications and allergies. Patient and/or family oriented to unit. [facility] reviewed. Clothing/patient valuable form completed. OLI CASAREZ
--- NOTE | 2017-03-05 13:44 | NUR ---
MED RECONCILIATION COMPOLETE VIA PHARMACY ON FILE. FAX ON CHART.
[2017-03-05 16:00] VITALS: BP 148/74
--- NOTE | 2017-03-05 17:42 | NUR ---
NOTIFIED DR XIOMY PRO VOICEMAIL OF NEW CONSULT FOR COPD EXACERBATION.
[2017-03-05 20:00] VITALS: BP 144/76
--- NOTE | 2017-03-05 20:00 | NUR ---
IV IN LEFT ARM INFILTRATED. 24G INSERTED INTO LEFT HAND AFTER ONE UNSUCCESSFUL ATTEMPT IN RIGHT ARM. PATIENT TOLERATED WELL. GOOD BLOOD RETURN. WILL CONTINUE TO MONITOR. CALL LIGHT IN REACH.
[2017-03-06] VITALS: BP 110/44
--- NOTE | 2017-03-06 00:29 | NUR ---
PATIENT MEDICATED WITH MOTRIN 800MG FOR COMPLAINTS OF A HEADACHE. WILL MONITOR FOR EFFECTIVENESS. CALL LIGHT IN REACH.
--- NOTE | 2017-03-06 01:30 | NUR ---
MOTRIN EFFECTIVE AT THIS TIME. PATIENT RESTING IN BED WITH EYES CLOSED. NO SIGNS OR SYMPTOMS OF DISTRESS NOTED. WILL CONTINUE TO MONITOR. CALL LIGHT IN REACH.
[2017-03-06 06:54] LABS: BASO % 0.2 % (0.0-1.0); HEMATOCRIT 32.7 % (37.0-47.0); HEMOGLOBIN 10.9 g/dl (12.0-16.0); LYMPH # 1.5 10*3/uL (1.3-4.4); LYMPH % 12.4 % (27.0-41.0); MEAN CELL VOLUME 97.9 fl (81.0-99.0); MEAN CORPUSCULAR HGB 32.6 pg (27.0-31.0); MEAN CORPUSCULAR HGB CONC 33.3 g/dl (33.0-37.0); MEAN PLATELET VOLUME 9.7 fl (9.6-12.3); MONO # 0.7 10*3/uL (0.1-1.0); MONO % 5.5 % (3.0-9.0); NEUT # 9.9 10*3/uL (2.3-7.9); NEUT % 81.5 % (47.0-73.0); PLATELET COUNT AUTOMATED 450 10*3/uL (130-400); RED BLOOD COUNT 3.34 10*6/uL (4.10-5.10); RED CELL DISTRI WIDTH 12.8 % (0-14.5); WHITE BLOOD COUNT 12.1 10*3/uL (4.8-10.8)
[2017-03-06 07:00] LABS: BUN 12 mg/dl (7-24); CHLORIDE 106 mmol/L (98-107); CHOLESTEROL 179 mg/dL (<200); CREATININE 0.82 mg/dL (0.55-1.02); POTASSIUM 4.1 mmol/L (3.5-5.1); SODIUM 141 mmol/L (136-145); TRIGLYCERIDES 96 mg/dl (<150); VLDL CHOLESTEROL 19 mg/dL (6-40)
[2017-03-06 07:09] LABS: ACT PARTIAL THROMBO TIME 23.6 SECONDS (20.8-31.5); INTERNATIONAL NORM RATIO 0.9 (2.0-3.5)
[2017-03-06 07:10] LABS: HDL CHOLESTEROL 54 mg/dl (40-60); LDL CHOLESTEROL 106 mg/dL (9-159); THYROID STIM HORMONE (HS) 0.334 uIU/ml (0.358-4.75)
[2017-03-06 07:59] LABS: VITAMIN D, 25-HYDROXY 26.5 ng/mL (30-100)
[2017-03-06 08:00] VITALS: BP 116/88
--- NOTE | 2017-03-06 08:43 | NUR ---
DR. STAUFFER IN TO SEE PT.
--- NOTE | 2017-03-06 09:00 | NUR ---
Medicated with norco per prn order for c/o chest discomfort due to cough, pt rated pain 7/10.
--- NOTE | 2017-03-06 09:00 | NUR ---
Security Director in to talk to patient. Patient states lives at home with family. There are few steps in the home. Physician: madhav vail [facility]acy: [facility] Home health services: none Patient's level of ADLs: INDEPENDENT Patient has working utilities: all working DME: home oxygen Follow-up physician's appointment after d/c: will be made by hospitalist nurse director upon discharge Does patient want to access PORTAL?: no Discharge plan discussed with patient, patient lives at home with a friend, she is independent in adls and ambulation, patient states she has home oxygen at home but her portable tanks are empty, states she called [facility] [place] and no one ever called her back, patient's friend stated that they have moved several times and only have a concentrator, case management will contact [facility] [place] to see what patient has and see if they can supply her with portable tanks. ISAC EDGAR
--- NOTE | 2017-03-06 10:00 | NUR ---
Pt states that pain medication was effective.
[2017-03-06 12:00] VITALS: BP 145/55
--- NOTE | 2017-03-06 12:02 | NUR ---
case management contacted [facility] regarding patient's oxygen, spoke to Karin, she checked and stated that patient was not in their system, hospital records from 2015 have patient as having [employer] for home oxygen, informed hospitalist nurse director that patient would need [employer] for home oxygen prior to her going home
--- NOTE | 2017-03-06 12:50 | NUR ---
PT REQUESTED MEDICATION FOR NAUSEA. ZOFRAN GIVEN.
--- NOTE | 2017-03-06 13:34 | NUR ---
PER PT, ZOFRAN WAS EFFECTIVE FOR NAUSEA. PT REPORTS NO NAUSEA AT THIS TIME.
[2017-03-06] MEDS ORDERED: CHANTIX1 M1 PO (13:45)
[2017-03-06 16:00] VITALS: BP 127/56
--- NOTE | 2017-03-06 17:36 | NUR ---
PT IN ROOM VISITING WITH . PT IS STANDING AND SWAYING SIDE TO SIDE STATES SHE "NEEDED TO GET OUT OF BED BECAUSE OF MY LOWER BACK AND HIPS WE'RE GETTING STIFF." PT DENIES PAIN, NAUSEA, VOMITING, DIARRHEA AT THIS TIME. LUNGS DIMINISHED WITH FAINT WHEEZING THROUGHOUT BILAT. PT DENIES SOB.
--- NOTE | 2017-03-06 17:43 | NUR ---
PT REQUESTED MEDICATION FOR LOWER BACK AND BILAT HIP PAIN. PAIN RATED AT 7 OUT OF 10 AND DESCRIBED CONSTANT PAIN THAT "SHOOTS FROM HIPS TO MID THIGH." VALERIO GIVEN.
--- NOTE | 2017-03-06 19:04 | NUR ---
PER PT, NORCO EFFECTIVE. PT RATES PAIN AT 5 OUT OF 10.
[2017-03-06 20:00] VITALS: BP 144/67
[2017-03-07] VITALS (9 sets, daily range): BP systolic 126–170; BP diastolic 64–84
--- NOTE | 2017-03-07 | NUR ---
RESTING IN BED WATCHING TV WITH NO ACUTE DISTRESS NOTED. RESPIRATIONS EASY. LUNGS DIMINISHED WITH WHEEZES. PULSE OX 95% RA, O2 PESENT AT BEDSIDE FOR PRN USE. IV FLUIDS INFUSING PER ORDER. NPO STATUS DISCUSSED FOR TESTING IN AM, VOICED UNDERSTANDING
--- NOTE | 2017-03-07 06:00 | NUR ---
rested throughout night with no distress noted. respirations easy. o2 present at bedside but not in use per patient request. iv fluids maintained. call light within reach. npo status maintained for bronch this am
[2017-03-07 06:20] LABS: BASO % 0.1 % (0.0-1.0); HEMATOCRIT 33.1 % (37.0-47.0); HEMOGLOBIN 10.8 g/dl (12.0-16.0); MEAN CELL VOLUME 97.1 fl (81.0-99.0); MEAN CORPUSCULAR HGB 31.7 pg (27.0-31.0); MEAN CORPUSCULAR HGB CONC 32.6 g/dl (33.0-37.0); MEAN PLATELET VOLUME 9.9 fl (9.6-12.3); MONO # 0.9 10*3/uL (0.1-1.0); MONO % 4.6 % (3.0-9.0); NEUT # 15.4 10*3/uL (2.3-7.9); NEUT % 83.4 % (47.0-73.0); PLATELET COUNT AUTOMATED 462 10*3/uL (130-400); RED BLOOD COUNT 3.41 10*6/uL (4.10-5.10); WHITE BLOOD COUNT 18.5 10*3/uL (4.8-10.8)
[2017-03-07 06:47] LABS: BUN 12 mg/dl (7-24); CHLORIDE 109 mmol/L (98-107); CREATININE 0.68 mg/dL (0.55-1.02); POTASSIUM 4.2 mmol/L (3.5-5.1); SODIUM 144 mmol/L (136-145)
--- NOTE | 2017-03-07 08:55 | NUR ---
case management visits with patient, informed her that [facility] was called yesterday and had no record of patient, also informed patient that hospitalist nurse director was notified that she would need qualified for home oxygen prior to going home, patient denies any other needs at this time
--- NOTE | 2017-03-07 09:00 | NUR ---
Pt off floor for bronchoscopy.
--- NOTE | 2017-03-07 20:10 | NUR ---
ASSESSMENT COMPLETE, PT ALERT AND ORIENTED X 3. PLEASANT AND COOPERATIVE. NO COMPLAINTS VOICED AT THIS TIME. RESPIRATIONS EASY AND UNLABORED. CALL LIGHT IN REACH.
--- NOTE | 2017-03-07 22:00 | NUR ---
HS MEDICATOINS TAKEN WITH EASE. IV FLUIDS RUNNING PER PHYSICIAN ORDER. NO S/S OF DISTRESS. CALL LIGHT IN REACH.
--- NOTE | 2017-03-07 22:43 | NUR ---
24 HR chart check completed.
[2017-03-08] VITALS: BP 126/63
--- NOTE | 2017-03-08 02:33 | NUR ---
PT C/O HIP PAIN. RATES IT 12/05. PRN NORCO ADMINISTERED AT THIS TIME. WILL MONITOR FOR EFFECTIVENESS.
--- NOTE | 2017-03-08 03:33 | NUR ---
VALERIO EFFECTIVE. PT RESTING IN BED, CALL LIGHT IN REACH.
--- NOTE | 2017-03-08 05:25 | NUR ---
ZANAFLEX NOT AVAILABLE TO GIVE 0600 DOSE AT THIS TIME. WILL CONTACT PHARMACY AT 0700 AND GIVE AM DOSE WHEN AVAILABLE.
--- NOTE | 2017-03-08 05:26 | NUR ---
PT SITTING UP IN BED, ALERT ORIENTED AND PLEASANT. AM MEDICATION TAKEN WITH EASE. NO COMPLAINTS VOICED AT THIS TIME. IV SITE PATENT, DRESSING DRY AND IN TACT. IV FLUIDS RUNNING PER PHYSICIAN ORDER. RESPIRATIONS EASY AND UNLABORED.
[2017-03-08 06:30] LABS: HEMATOCRIT 30.5 % (37.0-47.0); HEMOGLOBIN 10.2 g/dl (12.0-16.0); MEAN CELL VOLUME 96.2 fl (81.0-99.0); MEAN CORPUSCULAR HGB 32.2 pg (27.0-31.0); MEAN CORPUSCULAR HGB CONC 33.4 g/dl (33.0-37.0); MEAN PLATELET VOLUME 9.6 fl (9.6-12.3); PLATELET COUNT AUTOMATED 430 10*3/uL (130-400); RED BLOOD COUNT 3.17 10*6/uL (4.10-5.10); RED CELL DISTRI WIDTH 12.8 % (0-14.5); WHITE BLOOD COUNT 16.6 10*3/uL (4.8-10.8)
[2017-03-08 06:58] LABS: TOTAL CELLS COUNTED 100 #CELLS
[2017-03-08 06:59] LABS: PLATELET SUFFICIENCY HIGH (NORMAL)
[2017-03-08 07:26] LABS: CHLORIDE 108 mmol/L (98-107); SODIUM 142 mmol/L (136-145)
[2017-03-08 07:29] LABS: BUN 15 mg/dl (7-24)
[2017-03-08 08:00] VITALS: BP 136/90
--- NOTE | 2017-03-08 08:36 | NUR ---
PT REQUESTED MEDICATOIN FOR BILAT HIP AND LOWER BACK PAIN. PAIN RATED AT 7 OUT OF 10, CONSTANT AND DULL/ACHING. NORCO GIVEN.
--- NOTE | 2017-03-08 09:32 | NUR ---
PT REPORTS DECREASED PAIN. PRN NORCO WAS EFFECTIVE. PER PT, PAIN RATED AT 4 OUT OF 10.
[2017-03-08] MEDS ORDERED: PREDNISONE10 MG PO (11:32)
[2017-03-08] MEDS ORDERED: DOXYCYCLINE100 M3 PO (11:32)
[2017-03-08 12:00] VITALS: BP 157/83
--- NOTE | 2017-03-08 12:08 | NUR ---
Discharge instructions reviewed with patient/family. Patient receptive and verbalizes understanding. Follow-up care arranged. Written instructions given to patient/family. [place]
[2017-03-08 13:03] LABS: ACID FAST SMEAR Negative (.); ACID FAST SPEC PROCESSING Concentration (.)
== END 2017-03-08 12:30 | disposition home or self-care (01) | DRG 871 ==
LOC: ED 09:12 → 5E 10:55 → EDHOLD 10:55 → 5E 11:13
PROVIDERS: Emergency Medicine; Internal Medicine; Internal Medicine Critical Care Medicine; ADMIT Internal Medicine
PROC: 0BC48ZZ Extirpation of Matter from Right Upper Lobe Bronchus, Via Natural or Artificial Opening Endoscopic (ICD-10-PCS; principal; 2017-03-07)
PROC: 0BC58ZZ Extirpation of Matter from Right Middle Lobe Bronchus, Via Natural or Artificial Opening Endoscopic (ICD-10-PCS; principal; 2017-03-07)
PROC: 0BC78ZZ Extirpation of Matter from Left Main Bronchus, Via Natural or Artificial Opening Endoscopic (ICD-10-PCS; principal; 2017-03-07)
PROC: 0BCB8ZZ Extirpation of Matter from Left Lower Lobe Bronchus, Via Natural or Artificial Opening Endoscopic (ICD-10-PCS; principal; 2017-03-07)
PROC: 0BC38ZZ Extirpation of Matter from Right Main Bronchus, Via Natural or Artificial Opening Endoscopic (ICD-10-PCS; principal; 2017-03-07)
PROC: 0BC18ZZ Extirpation of Matter from Trachea, Via Natural or Artificial Opening Endoscopic (ICD-10-PCS; principal; 2017-03-07)
PROC: 0BC68ZZ Extirpation of Matter from Right Lower Lobe Bronchus, Via Natural or Artificial Opening Endoscopic (ICD-10-PCS; principal; 2017-03-07)
PROC: 0BC88ZZ Extirpation of Matter from Left Upper Lobe Bronchus, Via Natural or Artificial Opening Endoscopic (ICD-10-PCS; principal; 2017-03-07)
PROC: 0BC98ZZ Extirpation of Matter from Lingula Bronchus, Via Natural or Artificial Opening Endoscopic (ICD-10-PCS; principal; 2017-03-07)
DX: A41.9 Sepsis, unspecified organism (principal); J96.21 Acute and chronic respiratory failure with hypoxia; T17.890A Other foreign object in other parts of respiratory tract causing asphyxiation, initial encounter; J44.0 Chronic obstructive pulmonary disease with (acute) lower respiratory infection; J44.1 Chronic obstructive pulmonary disease with (acute) exacerbation; Z99.81 Dependence on supplemental oxygen; Z71.6 Tobacco abuse counseling; G43.909 Migraine, unspecified, not intractable, without status migrainosus; G89.29 Other chronic pain; F43.12 Post-traumatic stress disorder, chronic; M54.9 Dorsalgia, unspecified; F41.1 Generalized anxiety disorder; T38.0X5A Adverse effect of glucocorticoids and synthetic analogues, initial encounter; R73.9 Hyperglycemia, unspecified; J20.9 Acute bronchitis, unspecified; D47.3 Essential (hemorrhagic) thrombocythemia; R65.20 Severe sepsis without septic shock; F17.210 Nicotine dependence, cigarettes, uncomplicated; Z88.5 Allergy status to narcotic agent; Z88.8 Allergy status to other drugs, medicaments and biological substances; Z85.41 Personal history of malignant neoplasm of cervix uteri; Z98.42 Cataract extraction status, left eye; Z98.41 Cataract extraction status, right eye; Z90.710 Acquired absence of both cervix and uterus; Z82.49 Family history of ischemic heart disease and other diseases of the circulatory system; Z82.3 Family history of stroke; Z83.3 Family history of diabetes mellitus; Z87.81 Personal history of (healed) traumatic fracture; Z79.899 Other long term (current) drug therapy; Z82.5 Family history of asthma and other chronic lower respiratory diseases; X58.XXXA Exposure to other specified factors, initial encounter; Y93.89 Activity, other specified; Y92.89 Other specified places as the place of occurrence of the external cause; Y99.8 Other external cause status

== ENCOUNTER 2017-03-16 12:17 | Emergency (ER) | payer OTHER ==
[~2017-03-16] VITALS: Ht 170.1 cm; Wt 72.6 kg
[~2017-03-16 12:17] MED LIST changes: +CHANTIX1 M1 PO; +NORCO 7.5-3251 EACH PO; +REXULTI3 MG PO
[2017-03-16 12:33] VITALS: BP 111/71
[2017-03-16] MEDS ORDERED: NORCO 5-325 TA1 EACH PO (14:19)
== END 2017-03-16 15:23 | disposition home or self-care (01) ==
LOC: ED 12:17
DX: S20.211A Contusion of right front wall of thorax, initial encounter (principal); F17.200 Nicotine dependence, unspecified, uncomplicated; Z88.6 Allergy status to analgesic agent; Z88.8 Allergy status to other drugs, medicaments and biological substances; Z79.899 Other long term (current) drug therapy; Z90.49 Acquired absence of other specified parts of digestive tract; X58.XXXA Exposure to other specified factors, initial encounter; Y93.89 Activity, other specified; Y92.89 Other specified places as the place of occurrence of the external cause; Y99.8 Other external cause status

== ENCOUNTER 2017-04-07 11:30 | Emergency (ER) | payer OTHER ==
[~2017-04-07] VITALS: Ht 170.1 cm; Wt 68.0 kg
[2017-04-07 12:13] LABS: BASO # 0.1 10*3/uL (0.0-0.1); BASO % 0.4 % (0.0-1.0); EOS # 0.1 10*3/uL (0.0-0.4); EOS % 0.6 % (1.0-4.0); HEMATOCRIT 36.4 % (37.0-47.0); HEMOGLOBIN 12.2 g/dl (12.0-16.0); LYMPH # 2.9 10*3/uL (1.3-4.4); MEAN CELL VOLUME 93.1 fl (81.0-99.0); MEAN CORPUSCULAR HGB 31.2 pg (27.0-31.0); MEAN CORPUSCULAR HGB CONC 33.5 g/dl (33.0-37.0); MEAN PLATELET VOLUME 9.1 fl (9.6-12.3); MONO # 0.7 10*3/uL (0.1-1.0); NEUT # 14.5 10*3/uL (2.3-7.9); NEUT % 78.6 % (47.0-73.0); PLATELET COUNT AUTOMATED 525 10*3/uL (130-400); RED BLOOD COUNT 3.91 10*6/uL (4.10-5.10); RED CELL DISTRI WIDTH 12.5 % (0-14.5); WHITE BLOOD COUNT 18.4 10*3/uL (4.8-10.8)
[2017-04-07 12:29] LABS: ALBUMIN 3.4 gm/dl (3.1-4.5); ALKALINE PHOSPHATASE 106 U/L (45-117); BUN 7 mg/dl (7-24); CHLORIDE 105 mmol/L (98-107); CREATININE 0.83 mg/dL (0.55-1.02); POTASSIUM 3.7 mmol/L (3.5-5.1); SGOT/AST 12 IU/L (3-35); SGPT/ALT 16 U/L (12-78); SODIUM 142 mmol/L (136-145); TOTAL PROTEIN 7.1 gm/dL (6.4-8.2)
[2017-04-07 12:30] LABS: TROPONIN I < 0.015 ng/ml (<0.045)
[2017-04-07 14:03] VITALS: BP 156/90
[2017-04-07] MEDS ORDERED: LEVOFLOXACIN500 MG PO (14:09)
== END 2017-04-07 14:46 | disposition home or self-care (01) ==
LOC: ED 11:30
PROVIDERS: Nurse Practitioner Family
DX: J18.9 Pneumonia, unspecified organism (principal); F17.200 Nicotine dependence, unspecified, uncomplicated; Z90.49 Acquired absence of other specified parts of digestive tract; Z90.710 Acquired absence of both cervix and uterus; Z79.899 Other long term (current) drug therapy; Z88.6 Allergy status to analgesic agent; Z88.8 Allergy status to other drugs, medicaments and biological substances

== ENCOUNTER 2017-04-10 11:23 | Inpatient (IN) | payer OTHER ==
[~2017-04-10] VITALS: Ht 170.1 cm; Wt 72.2 kg
--- NOTE | ~2017-04-10 | EKG ---
[place], [place] ELECTROCARDIOGRAM REPORT NAME: GABRIELA GARNER UNIT #: [id number] ROOM: 404 DOCTOR: XIOMY GONSALEZ MD,RUDI BIRTHDATE: [birth year] DOS: 04/10/2017 ELECTROCARDIOGRAM The electrocardiogram was done on 04/10/2017 at 11:43 a.m. Low voltage EKG was noted normal sinus rhythm with heart rate of 84 beats per minute. Otherwise, normal echocardiogram. RUDI STAUFFER MD CM:EKGRPT:ELECTROCARDIOGRAM REPORT [id number] RUDI GONSALEZ MD
--- NOTE | ~2017-04-10 | CON ---
[place], [place] REPORT OF CONSULTATION NAME: GABRIELA GARNER [facility] #: [id number] UNIT #: [id number] ROOM: 404 DOCTOR: RUDI LARSEN MD BIRTHDATE: [birth year] DOS: 04/11/2017 PULMONARY CONSULTATION EVALUATION AND MANAGEMENT CONSULTATION REQUESTED BY: Hospitalist service for assessment of symptoms of shortness of breath, cough with acute exacerbation of COPD. HISTORY OF PRESENT ILLNESS: A 56-year-old white female with known history of COPD, has been admitted in this hospital and treated in February 2017. She was treated at that time for acute exacerbation of chronic obstructive pulmonary disease, acute bronchitis. The patient has done well. The patient at home still continued to smoke cigarettes. She stated she is currently smoking less than half a pack of cigarettes per day. She started with having recurrence of the respiratory symptom for the last few days with increased coughing, some sputum expectoration at this time. The symptoms were associated with progressive increase of shortness of breath. The wheezing was also noted with chest tightness. She was seen in the Emergency Room on 04/07/2017 with a reported diagnosis of pneumonia. She has been given Levaquin at home to be taken and if she did not improve, to come back to the hospital. The patient stated she returned back to the hospital and the symptom has been noted progressive without any improvement resulting from use of the Levaquin 500 mg p.o. daily. She was also noted increased wheezing with coughing and shortness of breath with exertion. REVIEW OF SYSTEMS: CONSTITUTIONAL: She does complain of fatigue and tiredness, but did not report any fever or chills. EYES: Denies any burning, redness, or tenderness. NECK, EARS, NOSE, THROAT SYMPTOMS: Sore throat, hoarseness, otalgia, postnasal drainage, epistaxis. CARDIOVASCULAR: Denies anginal pain, edema or pain of the lower extremities. GASTROINTESTINAL: Dysphagia, nausea, vomiting, diarrhea, abdominal pain, hematemesis, melena, hematochezia. MUSCULOSKELETAL SYMPTOMS: Denies any acute joint pain, muscular tenderness or weakness. SKIN: Denies lesions or rashes. CENTRAL NERVOUS SYSTEM: No dizziness, headache, diplopia, syncopal episodes. Remaining systems were reviewed. They were noted all negative. PAST MEDICAL HISTORY: Known with history of: 1. COPD/centrilobular emphysema with FEV1 about 48% known since 02/18/2017 assessment in the office. 2. Allergic rhinitis. 3. General anxiety disorder and depression. SURGICAL HISTORY: Known with: 1. Complete hysterectomy in 2011. 2. Lumbar laminectomy. 3. Appendectomy. [place], [place] REPORT OF CONSULTATION NAME: GABRIELA GARNER [facility] #: [id number] UNIT #: [id number] ROOM: 404 DOCTOR: RUDI LARSEN MD BIRTHDATE: [birth year] 4. Bronchoscopy, which was therapeutic done on 03/07/2017. SOCIAL HISTORY: The patient is and lives at home. Smoking was known from the age of [age] years old one and half pack of cigarettes per day, still smokes less than half a pack of cigarettes per day actively. There is no history of alcohol use or illicit drug use. She does have 2 children. FAMILY HISTORY: Father at age 70 due to complication of COPD. Mother at 65 of complication related to congestive heart failure. MEDICATIONS: The current administered medication were noted as use of vitamin D, Rexulti, Lexapro, folic acid, potassium chloride, loratadine, Lovenox for DVT prophylaxis, imipramine, Chantix, oxybutynin, gabapentin, prazosin, hydroxyzine, Solu-Medrol 60 mg every 8 hours, ibuprofen, Zanaflex, DuoNeb q.4 hours, Levaquin and other p.r.n. medications administration. DRUG ALLERGIES: Noted. 1. MORPHINE SULFATE. 2. NAPROXEN. 3. DAYPRO. PHYSICAL EXAMINATION: GENERAL: This is a 56-year-old female who has been currently noted to be awake and alert without any distress. At the time of the assessment this morning, height 5 feet 7 inches, weight 259 pounds, BMI 24.9. VITAL SIGNS: Normal temperature since admission, respiratory rate of 20-17, heart rate of 96-95, blood pressure 153/33-150/66. The pulse oxygen saturation recorded on room air is 94-95% saturation. HEENT: Examination shows head was atraumatic. Eyes nonicterus. NECK: Supple. CARDIOVASCULAR: S1, S2 was audible. LUNGS: The patient was noted with moderate reduction of the breath sounds with diffuse expiratory wheezing. There were no crackles. ABDOMEN: Soft, nontender and flat. EXTREMITIES: Without any edema, clubbing or cyanosis. CENTRAL NERVOUS SYSTEM: Cranial nerves 2-12 with no focal deficits. MUSCULOSKELETAL SYMPTOMS: No deformities. VISIBLE SKIN: No lesions or rashes. LABORATORY DATA: CBC was done yesterday, hemoglobin 10.7, hematocrit 32.5. Remaining CBC was normal. Eosinophils were 0.9%. The CMP on 04/10 normal BUN, creatinine and other electrolytes. Influenza A and B nasal washing antigen yesterday negative. Troponin 3 sets yesterday and this morning remains normal. CBC this morning, WBC count 11.9, hemoglobin 11.3, hematocrit 33.7, platelet count 565,000, which were elevated. PT/PTT normal this morning. Review of the radiology data personally performed from the Dexcom system. The chest x-ray on 04/07/2017 was noted with a small infiltration versus atelectasis in the left lower lobe. The chest x-ray, which was done one view on 04/10 does not show any acute infiltration. [place], [place] REPORT OF CONSULTATION NAME: GABRIELA GARNER UNIT #: [id number] ROOM: [facility] DOCTOR: RUDI LARSEN MD BIRTHDATE: [birth year] IMPRESSION: 1. The patient who has been currently admitted to the hospital noted with acute exacerbation of chronic obstructive pulmonary disease, failed outpatient treatment. 2. Questionable pneumonia versus atelectasis noted in the left lower lobe, currently not visible on the current chest x-ray. 3. Chronic persistent nicotine dependence as well and abuse. 4. General anxiety disorder, depression and multiple other medical illnesses known from the past history. PLAN OF MANAGEMENT: The patient has been getting Solu-Medrol 60 mg q.8 hours as well as bronchodilators, DuoNeb q.4 hours will be continued. Continue antibiotic at the same Levaquin. No changes need to be made. Collect the sputum for Gram stain and culture. The patient unable to expectorate sputum. Continuation of the supportive therapy, plan of management. Continuation of the Chantix to help with tobacco cessation as well. Other supportive care therapy, plan of management and treatments. Thanks for allowing me to participate in the care of this patient. RUDI STAUFFER MD CM:CONSTR:REPORT OF CONSULTATION 1510 04/11/17 2242 interface
--- NOTE | ~2017-04-10 | PR ---
[place], [place] PROGRESS NOTE NAME[id number] UNIT #: [id number] ROOM: 404 DOCTOR: RUDI LARSEN MD BIRTHDATE: [birth year] DOS: 04/12/2017 SUBJECTIVE: The patient has been noted comfortable at this time, reported partial reduction in respiratory symptom, decrease in cough, wheezing and shortness of breath. Denies symptoms of chest pain. The sputum expectoration noted minimal. OBJECTIVE: VITAL SIGNS: Normal temperature, respiratory rate 20, heart rate 77, blood pressure 139/74. Pulse oxygen saturation of the patient was noted as 100% on room air. HEENT: No acute change. NECK: Supple. CARDIOVASCULAR: S1, S2 audible. LUNGS: The patient was noted with expiratory wheezing in the lungs bilaterally, which has been decreased from previous examination. There were no crackles. ABDOMEN: Soft, nontender. LABORATORY DATA: Blood culture reported no bacterial growth. The TSH for the patient noted decreased at 0.20. IMPRESSION: 1. Acute exacerbation of chronic obstructive pulmonary disease with acute tracheobronchitis responding to current treatment very well. 2. History of nicotine abuse as well. PLAN OF TREATMENT: The patient would be continued on the bronchodilators with oxygen supplementation. Reduce the dose of Solu-Medrol 40 mg b.i.d. and assess the patient in the next 24 hours. If she continues to show improvement in the respiratory status, consider most likely home discharge on tapering dose of prednisone and the antibiotics. The discharge planning was discussed with Dr. Apurva Curiel who has been seeing the patient and the primary care attending today. [place], [place] PROGRESS NOTE NAME: GABRIELA GARNER [facility]: [id number] UNIT #: [id number] ROOM: 404 DOCTOR: RUDI LARSEN MD BIRTHDATE: [birth year] RUDI STAUFFER MD CM:PNTRANS [id number] RUDI GONSALEZ MD 04/12/171810 interface
[~2017-04-10 11:23] MED LIST changes: +LEVOFLOXACIN500 MG PO
[2017-04-10 11:30] VITALS: BP 127/73
[2017-04-10 12:02] LABS: BASO # 0.1 10*3/uL (0.0-0.1); BASO % 0.9 % (0.0-1.0); EOS # 0.1 10*3/uL (0.0-0.4); EOS % 0.9 % (1.0-4.0); HEMATOCRIT 32.5 % (37.0-47.0); HEMOGLOBIN 10.7 g/dl (12.0-16.0); LYMPH # 2.5 10*3/uL (1.3-4.4); LYMPH % 26.2 % (27.0-41.0); MEAN CELL VOLUME 95.3 fl (81.0-99.0); MEAN CORPUSCULAR HGB 31.4 pg (27.0-31.0); MEAN CORPUSCULAR HGB CONC 32.9 g/dl (33.0-37.0); MEAN PLATELET VOLUME 9.2 fl (9.6-12.3); MONO # 0.6 10*3/uL (0.1-1.0); MONO % 6.1 % (3.0-9.0); NEUT # 6.2 10*3/uL (2.3-7.9); NEUT % 65.5 % (47.0-73.0); PLATELET COUNT AUTOMATED 511 10*3/uL (130-400); RED BLOOD COUNT 3.41 10*6/uL (4.10-5.10); RED CELL DISTRI WIDTH 12.9 % (0-14.5); WHITE BLOOD COUNT 9.5 10*3/uL (4.8-10.8)
[2017-04-10 12:20] LABS: ALBUMIN 3.2 gm/dl (3.1-4.5); ALKALINE PHOSPHATASE 96 U/L (45-117); BUN 17 mg/dl (7-24); CHLORIDE 108 mmol/L (98-107); CREATININE 0.91 mg/dL (0.55-1.02); POTASSIUM 4.4 mmol/L (3.5-5.1); SGOT/AST 13 IU/L (3-35); SGPT/ALT 22 U/L (12-78); SODIUM 142 mmol/L (136-145); TOTAL PROTEIN 6.7 gm/dL (6.4-8.2)
[2017-04-10 12:22] LABS: TROPONIN I < 0.015 ng/ml (<0.045)
--- NOTE | 2017-04-10 15:04 | NUR ---
PATIENT WITH SALINE INFUSING AT TIME OF ADMISSION
--- NOTE | 2017-04-10 15:05 | NUR ---
A 56, admitted to , under the services of MICKI Dacosta DO with a diagnosis of ACUTE BROCHITIS, COPD, HYPERCHLOREMIA, HYPOCALCEMIA Chief complaint is COUGH, SOB, CHEST PRESSURE. Patient arrived via ambulatory from ER. Monitor applied. Initial assessment completed. Vital signs taken and recorded. MICKI DACOSTA DO notified of admission to the unit. Orders received. See assessment for past medical history, medications and allergies. Patient and/or family oriented to unit. [facility] visitation policy reviewed. Clothing/patient valuable form completed. PETTY PEÑA
[2017-04-10] MEDS ORDERED: BREO ELLIPTA 11 EACH INH (15:26)
[2017-04-10] MEDS ORDERED: IMIPRAMINE25 MG PO (15:30)
[2017-04-10] MEDS ORDERED: INCRUSE ELLI62.5 MCG INH (15:33)
[2017-04-10] MEDS ORDERED: ZOLPIDEM10 MG PO (15:38)
[2017-04-10] MEDS ORDERED: ESTRACE 0.01%42.5 GM V (15:39)
[2017-04-10] MEDS ORDERED: SONATA10 MG PO (15:40)
--- NOTE | 2017-04-10 15:40 | NUR ---
MED REC UPDATED BY LIST FAXED FROM [facility]. DR CAZARES UPDATED.
[2017-04-10 16:00] VITALS: BP 161/82
--- NOTE | 2017-04-10 16:03 | NUR ---
CALL PLACED TO DR STAUFFER'S OFFICE, STATES HE IS IN WITH A PT, AND WILL HAVE HIM CALL BACK.
--- NOTE | 2017-04-10 16:30 | NUR ---
MEDICATED WITH NORCO PER PRN ORDER FOR COMPLAINTS OF 8/10 BACK PAIN FROM COUGHING. WILL MONITOR FOR EFFECTIVENESS.
--- NOTE | 2017-04-10 16:44 | NUR ---
DR STAUFFER NOTIFIED OF NEW CONSULT.
[2017-04-10 20:00] VITALS: BP 150/66
--- NOTE | 2017-04-10 21:29 | NUR ---
Medicated with [place] po prn for chronic back pain rating 7/10. Will monitor effectiveness. Call light within reach.
[2017-04-11] VITALS: BP 153/71
--- NOTE | 2017-04-11 00:39 | NUR ---
24 HR chart check completed.
[2017-04-11 07:23] LABS: HEMATOCRIT 33.7 % (37.0-47.0); HEMOGLOBIN 11.3 g/dl (12.0-16.0); MEAN CELL VOLUME 95.5 fl (81.0-99.0); MEAN CORPUSCULAR HGB CONC 33.5 g/dl (33.0-37.0); MEAN PLATELET VOLUME 9.3 fl (9.6-12.3); PLATELET COUNT AUTOMATED 565 10*3/uL (130-400); RED BLOOD COUNT 3.53 10*6/uL (4.10-5.10); RED CELL DISTRI WIDTH 12.8 % (0-14.5); WHITE BLOOD COUNT 11.9 10*3/uL (4.8-10.8)
[2017-04-11 07:38] LABS: BUN 13 mg/dl (7-24); CHLORIDE 105 mmol/L (98-107); CHOLESTEROL 250 mg/dL (<200); HDL CHOLESTEROL 73 mg/dl (40-60); LDL CHOLESTEROL 153 mg/dL (9-159); PHOSPHOROUS 2.6 mg/dL (2.5-4.9); SODIUM 140 mmol/L (136-145); TRIGLYCERIDES 122 mg/dl (<150); VLDL CHOLESTEROL 24 mg/dL (6-40)
[2017-04-11 07:56] LABS: ATYPICAL LYMPHS 1 % (0-0); BASOPHILS 1 % (0-1); PLATELET SUFFICIENCY HIGH (NORMAL); TOTAL CELLS COUNTED 100 #CELLS
[2017-04-11 07:57] LABS: ACT PARTIAL THROMBO TIME 22.8 SECONDS (20.8-31.5); INTERNATIONAL NORM RATIO 0.9 (2.0-3.5)
[2017-04-11 08:00] VITALS: BP 144/54
--- NOTE | 2017-04-11 08:00 | NUR ---
[employer] Maintenance Manager in to talk to patient. Patient states lives at HOME with HER DAUGHTER. There are 13 steps in the home. Physician: DR NORTH [facility]acy: [facility] Home health services: NONE Patient's level of ADLs: INDEPENDENT Patient has working utilities: YES DME: NEB/O2 FROM [facility] USES O2 ONLY AT NIGHT Follow-up physician's appointment after d/c: WILL BE MADE PRIOR TO DC Does patient want to access PORTAL?: Discharge plan HOME. JOSE ELIAS [place]
[2017-04-11 08:43] LABS: VITAMIN D, 25-HYDROXY 22.2 ng/mL (30-100)
[2017-04-11 12:00] VITALS: BP 153/83
[2017-04-11 16:02] VITALS: BP 155/61
[2017-04-11 20:00] VITALS: BP 154/70
--- NOTE | 2017-04-11 20:14 | NUR ---
PATIENT C/O UPPER AND LOWER BACK PAIN, RATES 8/10 ON PAIN SCALE. MEDICATED WITH PO PRN NORCO. WILL MONITOR FOR EFFECTIVENESS. CALL LIGHT WITHIN REACH.
[2017-04-12] VITALS: BP 154/77
--- NOTE | 2017-04-12 05:47 | NUR ---
PATIENT SITTING UP IN BED DENIES ANY C/O'S AT THIS TIME. TOLERATED ROUTINE MEDS. BED IN LOW POSITION, SIDERAILS UP X2 FOR SAFETY AND CALL LIGHT WITHIN REACH.
--- NOTE | 2017-04-12 06:38 | NUR ---
PATIENT C/O BACK PAIN RATES 7/10 ON PAIN SCALE. MEDICATED WITH PO PRN NORCO. WILL MONITOR FOR EFFECTIVENESS. CALL LIGHT WITHIN REACH.
[2017-04-12 07:24] LABS: FREE T4 0.78 ng/dl (0.76-1.46)
[2017-04-12 07:28] LABS: THYROID STIM HORMONE (HS) 0.207 uIU/ml (0.358-4.75)
[2017-04-12 08:00] VITALS: BP 152/78
--- NOTE | 2017-04-12 10:02 | NUR ---
Medicated with zanaflex at 0953 for back spasms and norco per prn order for c/o back pain.
--- NOTE | 2017-04-12 11:00 | NUR ---
States that medication given earlier was effective.
[2017-04-12 12:00] VITALS: BP 139/74
--- NOTE | 2017-04-12 14:14 | NUR ---
Medicated with norco per prn order for complaints of back pain.
--- NOTE | 2017-04-12 15:15 | NUR ---
States that norco helped pain.
[2017-04-12 16:00] VITALS: BP 154/65
--- NOTE | 2017-04-12 18:23 | NUR ---
Medicated with norco per prn order for c/o back pain and zanaflex for muscle spasms.
--- NOTE | 2017-04-12 19:36 | NUR ---
ASSUMED CARE OF PT. PT IN BED, LAYING DOWN. NO DISTRESS NOTED. LUNGS DIMINISHED WITH SCATTERED WHEEZING NOTED. PT STATES SHE STILL HAS A NON-PRODUCTIVE DRY COUGH. NO EDEMA NOTED. PT VOICED NO CONCERNS AT THIS TIME. WILL CONTINUE TO MONITOR.
[2017-04-12 20:01] VITALS: BP 147/78
--- NOTE | 2017-04-12 22:39 | NUR ---
PT REQUESTED PAIN MEDICATION FOR CHRONIC BACK PAIN. PAIN IS RATED AT 7 OUT OF 10 AND DESCRIBED CONSTANT, DULL, AND ACHING. PRN NORCO GIVEN PER PT REQUEST. WILL MONITOR FOR EFFECTIVENESS.
--- NOTE | 2017-04-12 23:15 | NUR ---
PER PT, PRN NORCO WAS EFFECTIVE FOR BACK PAIN. WILL CONTINUE TO MONITOR.
[2017-04-13] VITALS: BP 129/61
--- NOTE | 2017-04-13 02:47 | NUR ---
24HR CHART CHECK COMPLETED.
--- NOTE | 2017-04-13 05:46 | NUR ---
PT REQUESTED MEDICATIONS FOR MUSCLE SPASMS OF THE BACK AND BACK PAIN. PAIN IS RATED AT 8 OUT OF 10 AND DESCRIBED CONSTANT, DULL, AND ACHING. PRN ZANAFLEX AND NORCO. WILL MONITOR FOR EFFECTIVENESS.
--- NOTE | 2017-04-13 06:32 | NUR ---
PER PT, PRN NORCO AND ZANAFLEX WAS EFFECTIVE FOR BACK PAIN/SPASMS. WILL CONTINUE TO MONITOR.
[2017-04-13 08:00] VITALS: BP 141/78
--- NOTE | 2017-04-13 08:35 | NUR ---
PT SITTING UP IN BED. RESP-EASY AND REGULAR. C/O BACK PAIN AND SPASMS. MEDICATED WITH MOTRIN PO PER PRN ORDER, SEE EMAR. MEDICATED WITH MOTRIN PO PER PRN ORDER, SEEEMAR. CALL LIGHT IN REACH. SEE SHIFT ASSESSMENT.
[2017-04-13] MEDS ORDERED: LEVOFLOXACIN500 MG PO (11:27)
[2017-04-13] MEDS ORDERED: PREDNISONE50 MG PO (11:39)
[2017-04-13] MEDS ORDERED: BENZONATATE100 M1 PO (11:41)
[2017-04-13] MEDS ORDERED: VITAMIN D-32000 UNIT PO (11:41)
--- NOTE | 2017-04-13 11:58 | NUR ---
Discharge instructions reviewed with patient/family. Patient receptive and verbalizes understanding. Follow-up care arranged. Written instructions given to patient/family. HEPLOCK REMOVED. 2X2 APPLIED. AT HER SIDE AMBULATORY OFF THE FLOOR FOR DISCHARGE. SANTOS ANDRE
== END 2017-04-13 11:58 | disposition home or self-care (01) | DRG 872 ==
LOC: ED 11:23 → 4E 13:05 → EDHOLD 13:05 → 4E 13:49
PROVIDERS: Internal Medicine Nephrology; Nurse Practitioner Family; ADMIT Internal Medicine
DX: A41.9 Sepsis, unspecified organism (principal); J96.11 Chronic respiratory failure with hypoxia; D70.9 Neutropenia, unspecified; E87.8 Other disorders of electrolyte and fluid balance, not elsewhere classified; J44.0 Chronic obstructive pulmonary disease with (acute) lower respiratory infection; J44.1 Chronic obstructive pulmonary disease with (acute) exacerbation; J30.2 Other seasonal allergic rhinitis; F17.210 Nicotine dependence, cigarettes, uncomplicated; J20.9 Acute bronchitis, unspecified; D64.9 Anemia, unspecified; G89.29 Other chronic pain; F32.9 Major depressive disorder, single episode, unspecified; F41.1 Generalized anxiety disorder; D47.3 Essential (hemorrhagic) thrombocythemia; E53.8 Deficiency of other specified B group vitamins; E55.9 Vitamin D deficiency, unspecified; G43.909 Migraine, unspecified, not intractable, without status migrainosus; M54.30 Sciatica, unspecified side; Z98.42 Cataract extraction status, left eye; Z83.6 Family history of other diseases of the respiratory system; Z82.49 Family history of ischemic heart disease and other diseases of the circulatory system; Z79.899 Other long term (current) drug therapy; Z88.8 Allergy status to other drugs, medicaments and biological substances; Z88.6 Allergy status to analgesic agent; Z99.81 Dependence on supplemental oxygen; Z90.710 Acquired absence of both cervix and uterus; Z90.49 Acquired absence of other specified parts of digestive tract; Z85.41 Personal history of malignant neoplasm of cervix uteri; Z98.41 Cataract extraction status, right eye; Z79.52 Long term (current) use of systemic steroids; Z71.6 Tobacco abuse counseling; Z87.01 Personal history of pneumonia (recurrent)

== ENCOUNTER 2017-05-26 17:33 | Emergency (ER) | payer OTHER ==
[~2017-05-26] VITALS: Wt 65.8 kg
[~2017-05-26 17:33] MED LIST changes: +BENZONATATE100 M1 PO; +BREO ELLIPTA 11 EACH INH; +ESTRACE 0.01%42.5 GM V; +IMIPRAMINE25 MG PO; +INCRUSE ELLI62.5 MCG INH; +SONATA10 MG PO; +VITAMIN D-32000 UNIT PO; +ZOLPIDEM10 MG PO
[2017-05-26] MEDS ORDERED: PREDNISONE10 MG PO (19:50)
[2017-05-26] MEDS ORDERED: ZITHROMAX250 MG PO (19:52)
[2017-05-26 20:01] VITALS: BP 135/78
== END 2017-05-26 20:01 | disposition home or self-care (01) ==
LOC: ED 17:33
DX: J20.9 Acute bronchitis, unspecified (principal); J44.9 Chronic obstructive pulmonary disease, unspecified; G43.909 Migraine, unspecified, not intractable, without status migrainosus; F17.210 Nicotine dependence, cigarettes, uncomplicated; Z88.6 Allergy status to analgesic agent; Z88.8 Allergy status to other drugs, medicaments and biological substances; Z79.899 Other long term (current) drug therapy

== ENCOUNTER 2017-06-07 11:11 | Inpatient (IN) | payer OTHER ==
[~2017-06-07] VITALS: Ht 170.1 cm; Wt 68.0 kg
--- NOTE | ~2017-06-07 | EKG ---
[place], [place] ELECTROCARDIOGRAM REPORT NAME: GABRIELA GARNER UNIT #: [id number] ROOM: 519 DOCTOR: XIOMY GONSALEZ MD,RUDI BIRTHDATE: [birth year] DOS: 06/07/2017 ELECTROCARDIOGRAM The electrocardiogram was done on 06/07/2017 at 11:43 a.m. A 56-year-old female has electrocardiogram done with heart rate of 82 beats per minute. There were nonspecific ST-T changes in the chest leads of V1, V2, and V3 of unknown significance. RUDI STAUFFER MD CM:EKGRPT:ELECTROCARDIOGRAM REPORT [id number] 1525 RUDI GONSALEZ MD
[2017-06-07 11:22] VITALS: BP 95/61
[2017-06-07 12:09] LABS: HEMATOCRIT 38.6 % (37.0-47.0); MEAN CELL VOLUME 91.5 fl (81.0-99.0); MEAN CORPUSCULAR HGB 30.8 pg (27.0-31.0); MEAN CORPUSCULAR HGB CONC 33.7 g/dl (33.0-37.0); MEAN PLATELET VOLUME 9.9 fl (9.6-12.3); PLATELET COUNT AUTOMATED 363 10*3/uL (130-400); RED BLOOD COUNT 4.22 10*6/uL (4.10-5.10); RED CELL DISTRI WIDTH 13.1 % (0-14.5)
[2017-06-07 12:18] LABS: ACT PARTIAL THROMBO TIME 29.3 SECONDS (20.8-31.5); INTERNATIONAL NORM RATIO 1.1 (2.0-3.5)
[2017-06-07 12:28] LABS: PLATELET SUFFICIENCY NORMAL (NORMAL); TOTAL CELLS COUNTED 100 #CELLS
[2017-06-07 12:35] LABS: ALBUMIN 3.2 gm/dl (3.1-4.5); ALKALINE PHOSPHATASE 87 U/L (45-117); BUN 13 mg/dl (7-24); CHLORIDE 102 mmol/L (98-107); CREATININE 1.17 mg/dL (0.55-1.02); SGOT/AST 12 IU/L (3-35); SGPT/ALT 15 U/L (12-78); SODIUM 136 mmol/L (136-145); TOTAL PROTEIN 6.9 gm/dL (6.4-8.2)
[2017-06-07 12:37] LABS: TROPONIN I < 0.015 ng/ml (<0.045)
[2017-06-07 12:38] VITALS: BP 90/48
[2017-06-07 12:49] LABS: BILIRUBIN NEGATIVE (NEGATIVE); BLOOD NEGATIVE (NEGATIVE); CLARITY CLEAR (CLEAR); COLOR YELLOW (YELLOW); GLUCOSE NEGATIVE (NEGATIVE); KETONE NEGATIVE (NEGATIVE); LEUKO ESTERASE TRACE (NEGATIVE); NITRITE NEGATIVE (NEGATIVE); SPECIFIC GRAVITY <= 1.005 (1.005-1.030)
[2017-06-07 12:59] LABS: BACTERIA TRACE
[2017-06-07] MEDS ORDERED: NORCO 7.5-3251 EACH PO (15:04)
[2017-06-07] MEDS ORDERED: 'CLONIDINE0.1 MG PO (15:51)
[2017-06-07] MEDS ORDERED: ZESTRIL10 MG PO (15:51)
[2017-06-07] MEDS ORDERED: COMBIVENT RESPIM4 GM INH (15:54)
[2017-06-07 16:00] VITALS: BP 100/57
[2017-06-07 20:00] VITALS: BP 106/57
[2017-06-08] VITALS: BP 110/61
[2017-06-08 07:06] LABS: MEAN CELL VOLUME 91.5 fl (81.0-99.0); MEAN CORPUSCULAR HGB CONC 33.8 g/dl (33.0-37.0); MEAN PLATELET VOLUME 10.5 fl (9.6-12.3); PLATELET COUNT AUTOMATED 331 10*3/uL (130-400); RED BLOOD COUNT 3.55 10*6/uL (4.10-5.10); RED CELL DISTRI WIDTH 12.8 % (0-14.5); WHITE BLOOD COUNT 18.5 10*3/uL (4.8-10.8)
[2017-06-08 07:07] LABS: HEMATOCRIT 32.5 % (37.0-47.0)
[2017-06-08 07:26] LABS: ALBUMIN 2.8 gm/dl (3.1-4.5); BUN 12 mg/dl (7-24); CHLORIDE 106 mmol/L (98-107); PHOSPHOROUS 1.9 mg/dL (2.5-4.9); POTASSIUM 4.2 mmol/L (3.5-5.1); SGOT/AST 7 IU/L (3-35); SGPT/ALT 13 U/L (12-78); SODIUM 139 mmol/L (136-145); TOTAL PROTEIN 6.5 gm/dL (6.4-8.2)
[2017-06-08 07:31] LABS: PLATELET SUFFICIENCY NORMAL (NORMAL); TOTAL CELLS COUNTED 100 #CELLS
[2017-06-08 07:36] LABS: ALKALINE PHOSPHATASE 87 U/L (45-117); THYROID STIM HORMONE (HS) 0.145 uIU/ml (0.358-4.75)
[2017-06-08 08:00] VITALS: BP 110/61
[2017-06-08 12:00] VITALS: BP 126/57
[2017-06-08 16:00] VITALS: BP 125/63
[2017-06-08 20:00] VITALS: BP 141/70
[2017-06-09] VITALS: BP 143/67
[2017-06-09 07:16] LABS: HEMATOCRIT 32.8 % (37.0-47.0); HEMOGLOBIN 11.2 g/dl (12.0-16.0); MEAN CELL VOLUME 91.9 fl (81.0-99.0); MEAN CORPUSCULAR HGB 31.4 pg (27.0-31.0); MEAN CORPUSCULAR HGB CONC 34.1 g/dl (33.0-37.0); MEAN PLATELET VOLUME 10.2 fl (9.6-12.3); PLATELET COUNT AUTOMATED 380 10*3/uL (130-400); RED BLOOD COUNT 3.57 10*6/uL (4.10-5.10); RED CELL DISTRI WIDTH 13.2 % (0-14.5); WHITE BLOOD COUNT 23.7 10*3/uL (4.8-10.8)
[2017-06-09 07:40] LABS: PLATELET SUFFICIENCY NORMAL (NORMAL); TOTAL CELLS COUNTED 100 #CELLS
[2017-06-09 07:46] LABS: BUN 12 mg/dl (7-24); CHLORIDE 103 mmol/L (98-107); CREATININE 0.89 mg/dL (0.55-1.02); POTASSIUM 4.2 mmol/L (3.5-5.1); SODIUM 138 mmol/L (136-145)
[2017-06-09 08:00] VITALS: BP 143/67
[2017-06-09 12:00] VITALS: BP 131/64
[2017-06-09 16:00] VITALS: BP 134/58
[2017-06-09 20:00] VITALS: BP 153/78
[2017-06-10] VITALS: BP 157/80
[2017-06-10 06:47] LABS: ALBUMIN 3.1 gm/dl (3.1-4.5); BUN 16 mg/dl (7-24); CHLORIDE 101 mmol/L (98-107); POTASSIUM 4.5 mmol/L (3.5-5.1); SODIUM 139 mmol/L (136-145)
[2017-06-10 06:51] LABS: ALKALINE PHOSPHATASE 83 U/L (45-117); CREATININE 0.96 mg/dL (0.55-1.02); SGOT/AST 5 IU/L (3-35); SGPT/ALT 14 U/L (12-78); TOTAL PROTEIN 6.7 gm/dL (6.4-8.2)
[2017-06-10 06:53] LABS: BASO % 0.1 % (0.0-1.0); HEMATOCRIT 32.4 % (37.0-47.0); HEMOGLOBIN 10.9 g/dl (12.0-16.0); LYMPH # 1.3 10*3/uL (1.3-4.4); LYMPH % 9.9 % (27.0-41.0); MEAN CELL VOLUME 90.3 fl (81.0-99.0); MEAN CORPUSCULAR HGB 30.4 pg (27.0-31.0); MEAN CORPUSCULAR HGB CONC 33.6 g/dl (33.0-37.0); MEAN PLATELET VOLUME 9.9 fl (9.6-12.3); MONO # 0.5 10*3/uL (0.1-1.0); MONO % 3.6 % (3.0-9.0); NEUT # 11.5 10*3/uL (2.3-7.9); NEUT % 85.2 % (47.0-73.0); PLATELET COUNT AUTOMATED 404 10*3/uL (130-400); RED BLOOD COUNT 3.59 10*6/uL (4.10-5.10); RED CELL DISTRI WIDTH 13.2 % (0-14.5); WHITE BLOOD COUNT 13.5 10*3/uL (4.8-10.8)
[2017-06-10 07:00] VITALS: BP 148/92
[2017-06-10 08:00] VITALS: BP 162/85
[2017-06-10 12:00] VITALS: BP 155/75
[2017-06-10 12:15] VITALS: BP 148/92
[2017-06-10] MEDS ORDERED: LEVOFLOXACIN500 MG PO ×2 (12:56→13:20)
[2017-06-10] MEDS ORDERED: PREDNISONE10 MG PO (12:56)
== END 2017-06-10 14:30 | disposition home or self-care (01) | DRG 194 ==
LOC: ED 11:11 → EDHOLD 12:24 → 5E 12:24
PROVIDERS: Emergency Medicine; Family Medicine
DX: J18.9 Pneumonia, unspecified organism (principal); J44.1 Chronic obstructive pulmonary disease with (acute) exacerbation; I95.89 Other hypotension; J96.10 Chronic respiratory failure, unspecified whether with hypoxia or hypercapnia; N17.9 Acute kidney failure, unspecified; Z99.81 Dependence on supplemental oxygen; E83.41 Hypermagnesemia; J44.0 Chronic obstructive pulmonary disease with (acute) lower respiratory infection; E53.8 Deficiency of other specified B group vitamins; F32.9 Major depressive disorder, single episode, unspecified; F12.10 Cannabis abuse, uncomplicated; F41.1 Generalized anxiety disorder; G89.29 Other chronic pain; F17.210 Nicotine dependence, cigarettes, uncomplicated; M54.5 Low back pain; I10 Essential (primary) hypertension; G43.909 Migraine, unspecified, not intractable, without status migrainosus; Z71.6 Tobacco abuse counseling; Z88.6 Allergy status to analgesic agent; Z88.8 Allergy status to other drugs, medicaments and biological substances; Z79.2 Long term (current) use of antibiotics; Z79.899 Other long term (current) drug therapy; Z87.81 Personal history of (healed) traumatic fracture; Z90.49 Acquired absence of other specified parts of digestive tract; Z98.42 Cataract extraction status, left eye; Z98.41 Cataract extraction status, right eye; Z90.710 Acquired absence of both cervix and uterus; Z83.6 Family history of other diseases of the respiratory system; Z82.49 Family history of ischemic heart disease and other diseases of the circulatory system; Z82.3 Family history of stroke; Z83.3 Family history of diabetes mellitus

== ENCOUNTER 2017-07-03 09:06 | Emergency (ER) | payer OTHER ==
[~2017-07-03] VITALS: Ht 170.1 cm; Wt 63.5 kg
[~2017-07-03 09:06] MED LIST changes: +'CLONIDINE0.1 MG PO; +ZESTRIL10 MG PO
[2017-07-03 09:12] VITALS: BP 140/70
[2017-07-03] MEDS ORDERED: VIBRAMYCIN100 MG PO (10:30)
[2017-07-03] MEDS ORDERED: DELTASONE20 M1 PO (10:30)
[2017-07-03] MEDS ORDERED: NORCO 5-325 TA1 EACH PO (10:30)
== END 2017-07-03 10:38 | disposition home or self-care (01) ==
LOC: ED 09:06
DX: S20.212A Contusion of left front wall of thorax, initial encounter (principal); J44.9 Chronic obstructive pulmonary disease, unspecified; F17.210 Nicotine dependence, cigarettes, uncomplicated; Z88.6 Allergy status to analgesic agent; Z88.8 Allergy status to other drugs, medicaments and biological substances; Z79.899 Other long term (current) drug therapy; W01.0XXA Fall on same level from slipping, tripping and stumbling without subsequent striking against object, initial encounter; Y93.89 Activity, other specified; Y92.89 Other specified places as the place of occurrence of the external cause; Y99.8 Other external cause status

== ENCOUNTER 2017-08-03 15:58 | Emergency (ER) | payer OTHER ==
[~2017-08-03] VITALS: Ht 170.1 cm; Wt 59.0 kg
[~2017-08-03 15:58] MED LIST changes: +DELTASONE20 M1 PO
[2017-08-03 16:04] VITALS: BP 113/65
[2017-08-03 16:45] LABS: BASO # 0.1 10*3/uL (0.0-0.1); BASO % 0.5 % (0.0-1.0); EOS # 0.1 10*3/uL (0.0-0.4); EOS % 0.5 % (1.0-4.0); HEMATOCRIT 37.1 % (37.0-47.0); HEMOGLOBIN 12.3 g/dl (12.0-16.0); LYMPH # 2.2 10*3/uL (1.3-4.4); MEAN CELL VOLUME 92.1 fl (81.0-99.0); MEAN CORPUSCULAR HGB 30.5 pg (27.0-31.0); MEAN CORPUSCULAR HGB CONC 33.2 g/dl (33.0-37.0); MONO # 0.7 10*3/uL (0.1-1.0); MONO % 5.4 % (3.0-9.0); NEUT % 76.2 % (47.0-73.0); PLATELET COUNT AUTOMATED 415 10*3/uL (130-400); RED BLOOD COUNT 4.03 10*6/uL (4.10-5.10); RED CELL DISTRI WIDTH 13.8 % (0-14.5); WHITE BLOOD COUNT 13.1 10*3/uL (4.8-10.8)
[2017-08-03 16:59] LABS: ALBUMIN 3.2 gm/dl (3.1-4.5); ALKALINE PHOSPHATASE 95 U/L (45-117); BUN 10 mg/dl (7-24); CHLORIDE 105 mmol/L (98-107); CREATININE 0.83 mg/dL (0.55-1.02); SGOT/AST 9 IU/L (3-35); SGPT/ALT 13 U/L (12-78); SODIUM 139 mmol/L (136-145); TOTAL PROTEIN 7.2 gm/dL (6.4-8.2)
== END 2017-08-03 18:00 | disposition left against medical advice (07) ==
LOC: ED 15:58
PROVIDERS: Physician Assistant
DX: R06.02 Shortness of breath (principal); J44.9 Chronic obstructive pulmonary disease, unspecified; F17.210 Nicotine dependence, cigarettes, uncomplicated; Z98.890 Other specified postprocedural states; Z90.710 Acquired absence of both cervix and uterus; Z79.899 Other long term (current) drug therapy; Z88.5 Allergy status to narcotic agent; Z88.6 Allergy status to analgesic agent; Z88.8 Allergy status to other drugs, medicaments and biological substances

== ENCOUNTER → 2017-08-21 | Outpatient (CLI) | payer OTHER | END | disposition home or self-care (01) | LOC: MAMMO 07:38 | DX: Z12.31 Encounter for screening mammogram for malignant neoplasm of breast (principal); I10 Essential (primary) hypertension ==

== ENCOUNTER 2017-10-30 13:15 | Inpatient (IN) | payer OTHER ==
[~2017-10-30] VITALS: Ht 170.1 cm; Wt 62.4 kg
--- NOTE | ~2017-10-30 | CON ---
[place], [place] REPORT OF CONSULTATION NAME: GABRIELA GARNER [facility] #: [id number] UNIT #: [id number] ROOM: 415 DOCTOR: RUDI LARSEN MD BIRTHDATE: [birth year] DOS: 11/01/2017 PULMONARY CONSULTATION, EVALUATION AND MANAGEMENT CONSULTATION REQUESTED BY: Hospitalist service. REASON FOR CONSULTATION: For assessment of the current acute shortness of breath and other symptoms. HISTORY OF PRESENT ILLNESS: This is a 56-year-old white female with a history of COPD. The patient has been admitted to the hospital because of progressive increased respiratory symptoms. She presented to the Emergency Room as she has been noted with symptoms of increased cough, which has been described ongoing for the past few days with progressive worsening. She does use oxygen supplementation at home. Denies symptoms of chest pain. The coughing has been noted worsened with yellowish to greenish sputum expectoration. Denies symptoms of hemoptysis with those symptoms. She does have symptoms of shortness of breath, which also were worsened with exertion as well as moderate to severe wheezing occurred. REVIEW OF SYSTEMS: CONSTITUTIONAL: Fatigue and tiredness reported without symptoms of fever or chills. EYES: Denies any burning, redness, or tenderness. EARS, NOSE, THROAT SYMPTOMS: Denies sore throat, hoarseness, otalgia, postnasal drainage or epistaxis. CARDIOVASCULAR: Denies anginal pain, edema or pain of the lower extremities. GASTROINTESTINAL: Denies dysphagia, nausea, vomiting, diarrhea, abdominal pain, hematemesis, melena, or hematochezia. SKIN: Denies abnormal lesions or rashes. CENTRAL NERVOUS SYSTEM: Denies dizziness, headache, diplopia, syncopal episode, seizures or loss of consciousness. Remaining systems were reviewed, they were noted all negative. PAST MEDICAL HISTORY: 1. The patient's hospitalization records were reviewed with hospitalization in this hospital in 05/2017 treated for acute exacerbation of COPD, also reported with acute pneumonia. The patient was treated and discharged home. 2. Past history of chronic obstructive pulmonary disease. 3. Chronic hypoxic respiratory failure, use of oxygen 3 liters. 4. Allergic rhinitis. 5. General anxiety disorder and depression. PAST SURGICAL HISTORY: Reported: 1. Complete hysterectomy. 2. Lumbar laminectomy. 3. Appendectomy. 4. Therapeutic bronchoscopy that was done on 03/07/2017. [place], [place] REPORT OF CONSULTATION NAME: GABRIELA GARNER [facility] #: [id number] UNIT #: [id number] ROOM: 415 DOCTOR: XIOMY GONSALEZ MD,RUDI BIRTHDATE: [birth year] SOCIAL HISTORY: The patient is and lives at home. Smoking was noted from the age of [age] years old, about half to a pack of cigarettes per day. Decreased smoking was noted with the use of the Chantix. The patient resumed smoking at least a pack of cigarettes per day at this time. She does have 2 children. Denies history of alcohol use or illicit drugs. FAMILY HISTORY: The patient's father at age of 7070 years old with complications of COPD. Mother at 65 years with complications related to the congestive heart failure. CURRENT MEDICATIONS: Administered noted use of Remeron, gabapentin, prazosin, brexpiprazole, vitamin D, lisinopril, Lexapro, folic acid, loratadine, tizanidine, Lovenox for DVT prophylaxis, Mucinex 1200 mg b.i.d., Solu-Medrol 60 mg b.i.d., DuoNeb q.4 hours, Zithromax and Rocephin. DRUG ALLERGY HISTORY: Noted as: 1. MORPHINE. 2. NAPROXEN. 3. DAYPRO. PHYSICAL EXAMINATION: GENERAL: This is a 56-year-old white female who has been noted currently sitting on the bed without any acute distress. Her height was recorded by the nursing staff on current admission with height of 5 feet 7 inches, weight of 137 pounds, BMI 21.5. VITAL SIGNS: Shows temperature 07/05 on admission 100 degrees Fahrenheit normal temperature, respiratory rate 18-22, heart rate 81-63, blood pressure 140/70-138/76. Pulse oxygen saturation recorded on 2 liters nasal cannula was 97% saturation. HEENT: Shows head was atraumatic. Eyes: No icterus. NECK: Supple. CARDIOVASCULAR: S1, S2 is audible. LUNGS: Noted diffuse expiratory wheezing in the lungs bilaterally. Occasional crackles. The breaths are noted mildly diminished bilaterally. ABDOMEN: Soft, nontender. Bowel sounds present. EXTREMITIES: Without edema. VISIBLE SKIN: No lesions or rashes. MUSCULOSKELETAL: Without any acute deformities. CENTRAL NERVOUS SYSTEM: The patient's cranial nerves 2-12 intact. No focal deficit. LABORATORY DATA: PT/INR on admission noted normal. CMP on 10/30/2017 noted normal BUN and creatinine. Potassium 3.1. LFTs grossly normal. CBC on 10/30/2017; WBC count 19.6, hemoglobin and hematocrit and platelet count were normal. CBC yesterday, WBC count were normal, hemoglobin 10.8, platelet count remains normal. CMP yesterday, normal BUN and creatinine. Blood culture from the 10/30 showed no bacterial growth. REVIEW OF THE RADIOLOGY DATA: The chest x-ray that was done was COPD, hyperinflation with the diffuse interstitial infiltration present. CT scan of [place], [place] REPORT OF CONSULTATION NAME: [facility] [id number] UNIT #: [id number] ROOM: [facility] DOCTOR: XIOMY GONSALEZ MD,RUDI BIRTHDATE: [birth year] the chest that was done on 10/30/2017 was reviewed shows patchy area of infiltration with tree-in-bud appearance noted in the lungs bilaterally. Evidence of a small nodular infiltration noted with consolidation in the lateral subsegment of the right lower lobe as well. The tree-in-bud appearance nodule present in the CT scan of the chest, which was done on 06/07/2017 for this patient. However, the rounded consolidation, infiltration or pleural-based nodule noted in the lateral aspect of the right lower lobe appeared to be new as compared to the CT scan of the chest. There were no significant lymphadenopathy. Partial improvement in some of the area of tree-in-bud infiltration noted from the CT scan of 05/2017. IMPRESSION: 1. The patient who had been currently admitted to the hospital was noted with acute exacerbation of chronic obstructive pulmonary disease at this time with the chronic nicotine dependence. 2. Current tree-in-bud appearance pulmonary nodular opacity in the lungs, possibility of chronic infection including for Mycobacterium avium complex can be completely excluded. The nodule which appeared to be more solid less than 1 cm in size, 2 of those noted in the right lower lobe, may be considered from acute bacterial infection with rounded atelectasis or other atypical infection. 3. The patient with history of chronic hypoxic respiratory failure with use of the long-term oxygen as well. Other medical illness reported in my past history. PLAN OF MANAGEMENT: At this time, the patient will be continued on current medical management, bronchodilators, oxygen supplementation and the antibiotics. 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 However, the patient might require a repeat bronchoscopy to reassess the patient's current abnormality in the lung. Certain other connective tissue disorder with acute hypersensitivity pneumonitis would be considered in differential diagnosis is current pulmonary nodules. Continuation of current dose of corticosteroids, bronchodilator therapy, plan of management and care as previously. Additional changes in the treatment might be recommended based on progression of the illness. Usual care, other supportive therapy, plan of management and nicotine replacement has been discussed with the patient, but stated that she does get the nightmare with the use of nicotine replacement patches. So the nicotine patches has been taken off from yesterday night. All other supportive therapy, plan of management, and care plan. Thanks for allowing me to participate in the care of this patient. [place], [place] REPORT OF CONSULTATION NAME: GABRIELA GARNER UNIT #: [id number] ROOM: [facility] DOCTOR: RUDI LARSEN MD BIRTHDATE: [birth year] RUDI STAUFFER MD CM:CONSTR:REPORT OF CONSULTATION 1601 11/02/17 0343 interface
--- NOTE | ~2017-10-30 | PR ---
[place], [place] PROGRESS NOTE NAME: [id number] UNIT #: [id number] ROOM: 415 DOCTOR: RUDI LARSEN MD BIRTHDATE: [birth year] DOS: 11/03/2017 SUBJECTIVE: She has remained in the hospital. The patient was noted with similar symptoms of cough and wheezing with only partial improvement. N.p.o. past midnight with bronchoscopy. Denies sore throat, hoarseness, or dryness in the mouth. The patient denies symptoms of chest pain or hemoptysis. Denies symptoms of nausea, vomiting, or diarrhea. Denies symptoms of hematemesis, melena, or hematochezia. Denies dysuria, suprapubic urinary incontinence or hesitancy. Any abnormal skin lesions or rashes. Remaining systems were reviewed, they were noted all negative. OBJECTIVE: VITAL SIGNS: For the patient this morning, normal temperature, respiratory rate 12, heart rate of 64, and blood pressure 150/83. Pulse oxygen saturation on 2 liters nasal cannula 93% saturation. HEENT: Head was atraumatic. Eyes nonicterus. NECK: Supple. CARDIOVASCULAR: S1, S2 audible. LUNGS: The patient was noted with moderate decreased breath sounds, expiratory wheezing without any crackles. ABDOMEN: Soft and nontender. EXTREMITIES: No edema. VISIBLE SKIN: No lesions or rashes. MUSCULOSKELETAL: No deformities. CENTRAL NERVOUS SYSTEM: Cranial nerves 2-12 intact. LABORATORY DATA: CBC today, WBC count 11.5, hemoglobin 10.6, platelet count were normal. BMP this morning, normal BUN and creatinine. IMPRESSION: 1. The patient has been noted with current ongoing acute exacerbation of chronic obstructive pulmonary disease, bilateral pulmonary infiltration with some area of atelectasis, acute pneumonia combination will be considered. 2. Past nicotine dependence as well. PLAN OF MANAGEMENT: Continue bronchodilators, oxygen supplementation, high dose corticosteroids and other therapy. Proceed with fiberoptic bronchoscopy, any modification treatment of the patient necessary will be done after bronchoscopy. Other therapy, plan of management is previously in progress. Usual care. [place], [place] PROGRESS NOTE NAME: GABRIELA GARNER [facility] #: [id number] UNIT #: [id number] ROOM: 415 DOCTOR: RUDI LARSEN MD BIRTHDATE: [birth year] RUDI STAUFFER MD CM:PNMORGAN 1143 RUDI GONSALEZ MD 11/03/17 1141 interface
--- NOTE | ~2017-10-30 | EKG ---
[place], [place] ELECTROCARDIOGRAM REPORT NAME: GABRIELA GARNER UNIT #: [id number] ROOM: 415 DOCTOR: MITCHELL MOROCHO MD BIRTHDATE: [birth year] DOS: 10/30/2017 TIME: 1440 hours. Normal sinus rhythm at 98 beats per minute. Mildly an inverted T waves in V2-V4 with flat T waves in V5 and V6. Anterior wall ischemia should be considered. No previous tracing is available for comparison. MITCHELL MOROCHO MD CM:EKGRPT:ELECTROCARDIOGRAM REPORT [id number] MITCHELL MOROCHO MD
--- NOTE | ~2017-10-30 | PR ---
[place], [place] PROGRESS NOTE NAME: GABRIELA GARNER [facility] #: [id number] UNIT #: [id number] ROOM: 415 DOCTOR: XIOMY GONSALEZ MD,RUDI BIRTHDATE: [birth year] DOS: 11/04/2017 PULMONARY PROGRESS NOTE SUBJECTIVE: The patient noted comfortable at this time, resting on the bed. The patient was not noted with any ongoing acute complaints. Bronchoscopy was done yesterday with partial reduction of the symptoms of cough, wheezing and shortness breath was noted, but the resolution noted incomplete. The cough has been noted currently with a small amount of sputum expectoration. Wheezing occurs with exertion. Shortness of breath was noted decreased. There were no symptoms of hemoptysis, fever, or chills. Denies symptoms of abdominal pain, nausea, or vomiting. Denies edema or pain of the lower extremities. Remaining systems reviewed, they were noted all negative. OBJECTIVE: VITAL SIGNS: Normal temperature, respiratory rate 20, heart rate 70, blood pressure of 116/81. Pulse ox saturation on room air was 96% saturation. HEENT: Head was atraumatic. Eyes: No icterus. CARDIOVASCULAR: S1, S2 audible. LUNGS: Noted with moderate decreased breath sounds with expiratory wheezing, without any crackles, reduction in wheezing noted from yesterday exam. ABDOMEN: Soft, nontender. Bowel sounds present. EXTREMITIES: Noted without any acute edema. MUSCULOSKELETAL: Without any deformities. SKIN: No lesions or rashes. CENTRAL NERVOUS SYSTEM: Cranial nerves 2-12 intact. LABORATORY DATA: BAL specimen from the right lower lobe noted with 66% neutrophils, 5% lymphocytes, 29% macrophages. Gram stain of the bronchial washing, many white blood cells, a few epithelial cells, few gram-positive cocci in pairs, chains and clusters. CBC of 11/04/2017: WBC count 11.6, hemoglobin 10.6, hematocrit 32.7, platelet count was normal. BMP this morning: Normal BUN and creatinine, glucose 117. Culture of the bronchial washing preliminarily noted normal alexandra, final culture results were pending. IMPRESSION: The patient with acute exacerbation of chronic obstructive pulmonary disease, history of nicotine dependence, bilateral tree-in-bud pulmonary nodules in the lungs noted, scattered infiltration of the lungs with suspected acute pneumonia and other etiologies of chronic infection as well in the differential were considered. PLAN OF MANAGEMENT: Monitor culture results. Continuation of bronchodilators and oxygen supplementation. Continue current dose of Solu-Medrol 60 mg b.i.d., no changes need to be made. Continue current antibiotics. Ambulation as tolerated. Other supportive therapy, plan of management as well. Additional treatment changes will be recommended based on progression of the illness. [place], [place] PROGRESS NOTE NAME: GABRIELA GARNER UNIT #: [id number] ROOM: [facility] DOCTOR: RUDI LARSEN MD BIRTHDATE: [birth year] RUDI STAUFFER MD CM:PNMORGAN [id number] RUDI GONSALEZ MD 11/04/17 0047 interface
--- NOTE | ~2017-10-30 | EKG ---
[place], [place] ELECTROCARDIOGRAM REPORT NAME: GABRIELA GARNER UNIT #: [id number] ROOM: 415 DOCTOR: XIOMY GONSALEZ MD,RUDI BIRTHDATE: [birth year] DOS: 11/02/2017 Electrocardiogram done on 11/02/2017 at 11:55 a.m. Electrocardiogram showed normal sinus rhythm. Heart rate 75 beats per minute. Nonspecific ST-T changes were noted. RUDI STAUFFER MD CM:EKGRPT:ELECTROCARDIOGRAM REPORT [id number] RUDI GONSALEZ MD
--- NOTE | ~2017-10-30 | PR ---
[place], [place] PROGRESS NOTE NAME: GABRIELA GARNER [facility] #: [id number] UNIT #: [id number] ROOM: 415 DOCTOR: XIOMY GONSALEZ MD,RUDI BIRTHDATE: [birth year] DOS: 11/05/2017 SUBJECTIVE: The patient was noted comfortable at this time without any acute distress. She has not been noted any ongoing acute new respiratory complaints at the present time. Coughing, shortness of breath, wheezing, all other symptoms have been progressively resolving. There were no symptoms of chest pain or any acute hemoptysis. OBJECTIVE: VITAL SIGNS: The patient's temperature recorded shows normal temperature, respiratory rate 20, heart rate 72, blood pressure 154/79 this morning. Pulse ox saturation on room air 95% saturation. HEENT: Examination shows head was atraumatic. Eyes nonicterus. NECK: Supple. CARDIOVASCULAR: S1, S2 is audible. LUNGS: The patient was noted with scattered occasional wheezing, no crackles. ABDOMEN: Soft, nontender, bowel sounds present. EXTREMITIES: Without any acute edema. LABORATORY DATA: Culture of the bronchial washing noted, normal alexandra. The chest x-ray that was done this morning shows changes of COPD, hyperinflation without any acute visible pulmonary infiltration. IMPRESSION: The patient has been noted with tree-in-bud appearance in the lungs. The patient is status post bronchoscopy resolving acute exacerbation of chronic obstructive pulmonary disease, history of chronic nicotine dependence. PLAN OF TREATMENT: Abstinence of tobacco use. Continue in the meantime, other supportive therapy, plan of management and care as previously. Usual care, other supportive plan of therapy and care. RUDI STAUFFER MD CM:PNTRANS [phone] RUDI GONSALEZ MD 11/06/17 0219 interface
--- NOTE | ~2017-10-30 | PR ---
[place], [place] PROGRESS NOTE NAME: GABRIELA GARNER UNIT #: [id number] ROOM: 415 DOCTOR: XIOMY GONSALEZ MD,RUDI BIRTHDATE: [birth year] DOS: 11/02/2017 PULMONARY PROGRESS NOTE SUBJECTIVE: The patient noted comfortable at this time, but still noted symptoms of coughing, chest congestion, and wheezing. There is sputum expectoration noted essentially none with the cough. The cough has been noted episodic. There were no symptoms of hemoptysis or chest pain noted in low portion of the chest with excessive cough. Denies symptoms of nausea, vomiting, abdominal pain, hematemesis, melena, dysphagia, or hematuria. Denies any joint pain. Denies symptoms of headache or diplopia. Remaining systems were reviewed and they were noted all negative. PHYSICAL EXAMINATION: VITAL SIGNS: Normal temperature, respiratory rate is 20, heart rate is 83, and blood pressure is 152/82-146/79. The pulse oxygen saturation on 2 liters nasal cannula is 98% saturation. HEENT: Examination shows head was atraumatic. Eyes nonicterus. NECK: Supple. CARDIOVASCULAR SYSTEM: S1, S2 audible. LUNGS: The patient was noted with diffuse expiratory wheezing remains persistent, previous scattered crackles of the lung in mid portion of the lung. ABDOMEN: Soft, nontender, bowel sounds present. EXTREMITIES: Noted without any acute edema. LABORATORY DATA: There were no labs, which were new done today. IMPRESSION: 1. The patient with ongoing acute exacerbation of chronic obstructive pulmonary disease. 2. Bilateral pulmonary infiltration. The patient was also noted with a nodular pattern as well. 3. Tree-in-bud appearance of pulmonary nodules. Rule out chronic infection versus acute infection. 4. The patient with chronic hypoxic respiratory failure and acute nicotine dependency. PLAN OF TREATMENT: The patient will be continued on corticosteroids at current dose, bronchodilators, oxygen supplementation, and the Mucinex. Bronchoscopy was assessed to be done tomorrow morning. Risk and benefits of the procedure were discussed with the patient. Bronchoscopy have done to extract mucus impaction and also get more accurate culture from the endobronchial tree, rule out chronic infection with acute infection. Other supportive plan of management, care plan, and therapies. [place], [place] PROGRESS NOTE NAME: GABRIELA GARNER UNIT #: [id number] ROOM: [facility] DOCTOR: RUDI LARSEN MD BIRTHDATE: [birth year] RUDI STAUFFER MD CM:MAGDALENA [phone] RUDI GONSALEZ MD 11/03/17 0110 interface
--- NOTE | ~2017-10-30 | PROC NOTE ---
[place], [place] PROCEDURE NOTE NAME[facility] [id number] UNIT #: [id number] ROOM: 415 DOCTOR: XIOMY GONSALEZ MD,RUDI BIRTHDATE: [birth year] DOS: 11/03/2017 PREOPERATIVE DIAGNOSIS: The patient with severe cough and wheezing as well as pulmonary infiltration of the lung, including in the right lower lobe. This patient was also noted with a nodular infiltration, which is of tree-in-bud appearance in the lungs bilaterally. PROCEDURE DESCRIPTION: Informed consent was obtained. The patient was brought to the OR and placed in supine position. Conscious sedation administered by the Anesthesia Department. After achieving proper sedation, airway introduced into the mouth. Bronchoscope advanced to the airway into laryngeal area. Epiglottis and vocal cords were seen. Vocal moves symmetrically with movements. The bronchoscope advanced to the vocal cord and tracheal lumen. Tracheal lumen noted small amount of secretion with mucus suctioned out. The patient noted with moderate impaction of the thick mucus plugs in endobronchial tree bilaterally, mainly in the lower lobe endobronchial tree. Bronchial washing taking all of the endobronchial subsegments including right upper, right middle, right lower, left upper, lingula, and lower lobes. The BAL specimen was obtained from the right lower lobe endobronchial tree as well. Procedure well tolerated by the patient without complications. Transient hypoxia noted, which was treated with the removal of the bronchoscope in addition oxygen supplementation. Postoperative findings were discussed with the patient's in detail as well. No immediate change in treatment will be necessary. RUDI STAUFFER MD CM:PROCNOTE:PROCEDURE NOTE [id number] RUDI GONSALEZ MD
[~2017-10-30 13:15] MED LIST changes: +VENTOLIN 02.5 MG/3 M NEB
[2017-10-30 13:18] VITALS: BP 115/60
[2017-10-30 15:10] LABS: BASO # 0.1 10*3/uL (0.0-0.1); BASO % 0.4 % (0.0-1.0); EOS % 0.1 % (1.0-4.0); HEMOGLOBIN 12.6 g/dl (12.0-16.0); LYMPH # 1.9 10*3/uL (1.3-4.4); LYMPH % 9.6 % (27.0-41.0); MEAN CORPUSCULAR HGB 30.5 pg (27.0-31.0); MEAN CORPUSCULAR HGB CONC 33.2 g/dl (33.0-37.0); MONO # 0.8 10*3/uL (0.1-1.0); MONO % 4.3 % (3.0-9.0); NEUT # 16.7 10*3/uL (2.3-7.9); NEUT % 85.1 % (47.0-73.0); PLATELET COUNT AUTOMATED 250 10*3/uL (130-400); RED BLOOD COUNT 4.13 10*6/uL (4.10-5.10); RED CELL DISTRI WIDTH 13.2 % (0-14.5); WHITE BLOOD COUNT 19.6 10*3/uL (4.8-10.8)
[2017-10-30 15:15] LABS: INTERNATIONAL NORM RATIO 0.9 (2.0-3.5)
[2017-10-30 15:28] LABS: ALBUMIN 3.1 gm/dl (3.1-4.5); ALKALINE PHOSPHATASE 118 U/L (45-117); BUN 15 mg/dl (7-24); CHLORIDE 95 mmol/L (98-107); CREATININE 0.97 mg/dL (0.55-1.02); LIPASE 98 U/L (73-393); POTASSIUM 3.1 mmol/L (3.5-5.1); SGOT/AST 11 IU/L (3-35); SGPT/ALT 11 U/L (12-78); SODIUM 137 mmol/L (136-145); TOTAL PROTEIN 8.3 gm/dL (6.4-8.2)
[2017-10-30 15:30] LABS: TROPONIN I < 0.015 ng/ml (<0.045)
[2017-10-30 16:24] VITALS: BP 91/43
[2017-10-30 17:19] VITALS: BP 108/63
[2017-10-30 18:19] VITALS: BP 105/62
[2017-10-30 18:55] VITALS: BP 120/54
[2017-10-30] MEDS ORDERED: NORCO 5-325 TA1 EACH PO (19:43)
[2017-10-30 20:00] VITALS: BP 112/64
[2017-10-31] VITALS: BP 105/58
[2017-10-31 06:59] LABS: HEMATOCRIT 33.6 % (37.0-47.0); HEMOGLOBIN 10.8 g/dl (12.0-16.0); MEAN CELL VOLUME 94.1 fl (81.0-99.0); MEAN CORPUSCULAR HGB 30.3 pg (27.0-31.0); MEAN CORPUSCULAR HGB CONC 32.1 g/dl (33.0-37.0); MEAN PLATELET VOLUME 10.6 fl (9.6-12.3); PLATELET COUNT AUTOMATED 267 10*3/uL (130-400); RED BLOOD COUNT 3.57 10*6/uL (4.10-5.10); RED CELL DISTRI WIDTH 13.1 % (0-14.5); WHITE BLOOD COUNT 10.4 10*3/uL (4.8-10.8)
[2017-10-31 07:30] LABS: ACT PARTIAL THROMBO TIME 27.4 SECONDS (20.8-31.5); INTERNATIONAL NORM RATIO 0.9 (2.0-3.5)
[2017-10-31 07:39] LABS: PLATELET SUFFICIENCY NORMAL (NORMAL); POLYCHROMASIA SLIGHT; TOTAL CELLS COUNTED 100 #CELLS
[2017-10-31 07:42] LABS: ALBUMIN 2.8 gm/dl (3.1-4.5); BUN 10 mg/dl (7-24); CHLORIDE 104 mmol/L (98-107); CREATININE 0.77 mg/dL (0.55-1.02); PHOSPHOROUS 2.1 mg/dL (2.5-4.9); POTASSIUM 3.7 mmol/L (3.5-5.1); SGOT/AST 17 IU/L (3-35); SGPT/ALT 17 U/L (12-78); SODIUM 139 mmol/L (136-145); TOTAL PROTEIN 6.8 gm/dL (6.4-8.2)
[2017-10-31 07:44] LABS: ALKALINE PHOSPHATASE 99 U/L (45-117)
[2017-10-31 08:00] VITALS: BP 100/63
[2017-10-31] MEDS ORDERED: VENTOLIN,PR2 MG/5 ML INH (10:01)
[2017-10-31] MEDS ORDERED: NEURONTIN300 MG PO (10:04)
[2017-10-31] MEDS ORDERED: VITAMIN D22000 UNIT PO (10:04)
[2017-10-31] MEDS ORDERED: MIRTAZAPINE30 M1 PO (10:06)
[2017-10-31] MEDS ORDERED: BUSPIRONE15 MG PO (10:07)
[2017-10-31 12:00] VITALS: BP 106/66
[2017-10-31 16:00] VITALS: BP 118/68
[2017-10-31 20:00] VITALS: BP 126/66
[2017-11-01] VITALS: BP 137/78
[2017-11-01 08:00] VITALS: BP 138/76; BP 140/72
[2017-11-01 12:00] VITALS: BP 148/78
[2017-11-01 16:00] VITALS: BP 152/76
[2017-11-01 20:00] VITALS: BP 150/74
[2017-11-02] VITALS: BP 146/79
[2017-11-02 08:00] VITALS: BP 156/76
[2017-11-02 12:00] VITALS: BP 152/82
[2017-11-02 16:00] VITALS: BP 158/84
[2017-11-02 20:00] VITALS: BP 161/94
[2017-11-03] VITALS (9 sets, daily range): BP systolic 126–173; BP diastolic 67–89
[2017-11-03 06:42] LABS: HEMATOCRIT 33.9 % (37.0-47.0); HEMOGLOBIN 10.6 g/dl (12.0-16.0); MEAN CELL VOLUME 95.8 fl (81.0-99.0); MEAN CORPUSCULAR HGB 29.9 pg (27.0-31.0); MEAN CORPUSCULAR HGB CONC 31.3 g/dl (33.0-37.0); MEAN PLATELET VOLUME 10.2 fl (9.6-12.3); PLATELET COUNT AUTOMATED 303 10*3/uL (130-400); RED BLOOD COUNT 3.54 10*6/uL (4.10-5.10); RED CELL DISTRI WIDTH 13.3 % (0-14.5); WHITE BLOOD COUNT 11.5 10*3/uL (4.8-10.8)
[2017-11-03 06:48] LABS: BUN 15 mg/dl (7-24); CHLORIDE 110 mmol/L (98-107); CREATININE 0.73 mg/dL (0.55-1.02); POTASSIUM 4.4 mmol/L (3.5-5.1); SODIUM 145 mmol/L (136-145)
[2017-11-03 07:29] LABS: TOTAL CELLS COUNTED 100 #CELLS
[2017-11-03 07:30] LABS: PLATELET SUFFICIENCY NORMAL (NORMAL)
[2017-11-03 11:46] LABS: BF LYMPHOCYTES 5 %; BF MACROPHAGES 29 %; BF NEUTROPHILS 66 %
[2017-11-04] VITALS: BP 171/64
[2017-11-04 07:07] LABS: HEMATOCRIT 32.7 % (37.0-47.0); HEMOGLOBIN 10.6 g/dl (12.0-16.0); MEAN CELL VOLUME 93.7 fl (81.0-99.0); MEAN CORPUSCULAR HGB 30.4 pg (27.0-31.0); MEAN CORPUSCULAR HGB CONC 32.4 g/dl (33.0-37.0); MEAN PLATELET VOLUME 10.6 fl (9.6-12.3); PLATELET COUNT AUTOMATED 259 10*3/uL (130-400); RED BLOOD COUNT 3.49 10*6/uL (4.10-5.10); RED CELL DISTRI WIDTH 13.2 % (0-14.5); WHITE BLOOD COUNT 11.6 10*3/uL (4.8-10.8)
[2017-11-04 07:30] LABS: BUN 17 mg/dl (7-24); CHLORIDE 108 mmol/L (98-107); CREATININE 0.71 mg/dL (0.55-1.02); POTASSIUM 4.1 mmol/L (3.5-5.1); SODIUM 145 mmol/L (136-145)
[2017-11-04 07:32] LABS: PLATELET SUFFICIENCY NORMAL (NORMAL); TOTAL CELLS COUNTED 100 #CELLS
[2017-11-04 07:33] LABS: TOXIC GRANULATION SLIGHT; VACUOLATION OF NEUTROPHILS SLIGHT
[2017-11-04 08:00] VITALS: BP 178/79
[2017-11-04 12:00] VITALS: BP 169/81
[2017-11-04 12:11] LABS: ACID FAST SPEC PROCESSING Concentration (.)
[2017-11-04 16:00] VITALS: BP 165/78
[2017-11-04 20:00] VITALS: BP 165/86
[2017-11-05 00:30] VITALS: BP 165/85
[2017-11-05 07:05] LABS: HEMATOCRIT 35.2 % (37.0-47.0); HEMOGLOBIN 11.4 g/dl (12.0-16.0); MEAN CELL VOLUME 92.9 fl (81.0-99.0); MEAN CORPUSCULAR HGB 30.1 pg (27.0-31.0); MEAN CORPUSCULAR HGB CONC 32.4 g/dl (33.0-37.0); MEAN PLATELET VOLUME 9.8 fl (9.6-12.3); NUCLEATED RED BLOOD CELL 0.2 % (0.0-0.0); RED BLOOD COUNT 3.79 10*6/uL (4.10-5.10); RED CELL DISTRI WIDTH 13.2 % (0-14.5); WHITE BLOOD COUNT 13.1 10*3/uL (4.8-10.8)
[2017-11-05 07:11] LABS: PLATELET COUNT AUTOMATED 359 10*3/uL (130-400)
[2017-11-05 08:00] VITALS: BP 154/79
[2017-11-05 08:08] LABS: PLATELET SUFFICIENCY NORMAL (NORMAL); TOTAL CELLS COUNTED 100 #CELLS
[2017-11-05] MEDS ORDERED: ZITHROMAX250 MG PO (10:32)
[2017-11-05] MEDS ORDERED: PREDNISONE10 MG PO (10:32)
[2017-11-05] MEDS ORDERED: MUCINEX ER600 MG PO (10:32)
[2017-11-19 10:03] LABS: ORGANISM ID, MOLD Final report (.); RESULT 1 Penicillium species (.)
[2017-12-17 11:02] LABS: ACID FAST CULTURE Negative (.)
== END 2017-11-05 10:50 | disposition home or self-care (01) | DRG 853 ==
LOC: ED 13:15 → EDHOLD 17:53 → 4E 17:53
PROVIDERS: Family Medicine; Internal Medicine; Internal Medicine Critical Care Medicine; Physician Assistant
PROC: 0B9F8ZX Drainage of Right Lower Lung Lobe, Via Natural or Artificial Opening Endoscopic, Diagnostic (ICD-10-PCS; principal; 2017-11-03)
PROC: 0BC98ZZ Extirpation of Matter from Lingula Bronchus, Via Natural or Artificial Opening Endoscopic (ICD-10-PCS; 2017-11-03)
PROC: 0BC48ZZ Extirpation of Matter from Right Upper Lobe Bronchus, Via Natural or Artificial Opening Endoscopic (ICD-10-PCS; 2017-11-03)
PROC: 0BC88ZZ Extirpation of Matter from Left Upper Lobe Bronchus, Via Natural or Artificial Opening Endoscopic (ICD-10-PCS; 2017-11-03)
PROC: 0BC58ZZ Extirpation of Matter from Right Middle Lobe Bronchus, Via Natural or Artificial Opening Endoscopic (ICD-10-PCS; 2017-11-03)
PROC: 0BC38ZZ Extirpation of Matter from Right Main Bronchus, Via Natural or Artificial Opening Endoscopic (ICD-10-PCS; 2017-11-03)
PROC: 0BC78ZZ Extirpation of Matter from Left Main Bronchus, Via Natural or Artificial Opening Endoscopic (ICD-10-PCS; 2017-11-03)
PROC: 0BC68ZZ Extirpation of Matter from Right Lower Lobe Bronchus, Via Natural or Artificial Opening Endoscopic (ICD-10-PCS; 2017-11-03)
PROC: 0BCB8ZZ Extirpation of Matter from Left Lower Lobe Bronchus, Via Natural or Artificial Opening Endoscopic (ICD-10-PCS; 2017-11-03)
PROC: 0BC18ZZ Extirpation of Matter from Trachea, Via Natural or Artificial Opening Endoscopic (ICD-10-PCS; 2017-11-03)
DX: A41.9 Sepsis, unspecified organism (principal); J18.9 Pneumonia, unspecified organism; J96.21 Acute and chronic respiratory failure with hypoxia; T17.590A Other foreign object in bronchus causing asphyxiation, initial encounter; E44.0 Moderate protein-calorie malnutrition; Z99.81 Dependence on supplemental oxygen; J44.1 Chronic obstructive pulmonary disease with (acute) exacerbation; J44.0 Chronic obstructive pulmonary disease with (acute) lower respiratory infection; J98.11 Atelectasis; R65.20 Severe sepsis without septic shock; E87.6 Hypokalemia; E83.41 Hypermagnesemia; F41.1 Generalized anxiety disorder; X58.XXXA Exposure to other specified factors, initial encounter; F12.10 Cannabis abuse, uncomplicated; M54.9 Dorsalgia, unspecified; G89.29 Other chronic pain; F17.210 Nicotine dependence, cigarettes, uncomplicated; F32.9 Major depressive disorder, single episode, unspecified; Z90.710 Acquired absence of both cervix and uterus; Z90.49 Acquired absence of other specified parts of digestive tract; Z98.42 Cataract extraction status, left eye; Z98.41 Cataract extraction status, right eye; Z88.8 Allergy status to other drugs, medicaments and biological substances; Z82.5 Family history of asthma and other chronic lower respiratory diseases; Z82.49 Family history of ischemic heart disease and other diseases of the circulatory system; Y93.89 Activity, other specified; Y92.89 Other specified places as the place of occurrence of the external cause; Y99.8 Other external cause status; Z68.21 Body mass index [BMI] 21.0-21.9, adult

== ENCOUNTER 2017-11-17 15:43 | Inpatient (IN) | payer OTHER ==
[~2017-11-17] VITALS: Ht 170.2 cm; Wt 65.1 kg
--- NOTE | ~2017-11-17 | CON ---
[place], [place] REPORT OF CONSULTATION NAME: GABRIELA GARNER [facility] #: [id number] UNIT #: [id number] ROOM: 408 DOCTOR: DIVYA OLIVIER DO BIRTHDATE: [birth year] DOS: 11/20/2017 REQUESTING PHYSICIAN: Hospitalist Service. REASON FOR CONSULTATION: COPD. HISTORY OF PRESENTING ILLNESS: The patient presents to [facility] for shortness of breath. She was recently admitted with the same symptoms. She was discharged home on a prednisone taper and antibiotic. She states that she has not smoked since her last visit to the hospital. She does not use oxygen at home. She complains of wheezing and shortness of breath and dry cough. On admission, she was feeling dizzy, had chills and sweats as well. She denies any of that at this time. She also denies any syncopal episodes, headache, blurry vision, chest pain, abdominal pain, nausea, vomiting, diarrhea, hemoptysis, hematemesis, hematochezia, or edema. REVIEW OF SYSTEMS: CONSTITUTIONAL SYMPTOMS: Admits to fatigue and tiredness. Denies fevers or chills. EYES: Denies burning, redness, or tenderness. EARS, NOSE, THROAT: Denies sore throat, hoarseness, otalgia, postnasal drainage or epistaxis. CARDIOVASCULAR: Denies chest pain, edema or pain in the lower extremities. RESPIRATORY: Admits to shortness of breath, cough, wheezing. Denies sputum production. GASTROINTESTINAL: Denies dysphagia, nausea, vomiting, diarrhea, abdominal pain, hematemesis, melena or hematochezia. GENITOURINARY: No dysuria, suprapubic pain, or hematuria. MUSCULOSKELETAL: No acute pain. SKIN: Admits to recent dog bite as well as scratches from animals on her legs. CENTRAL NERVOUS SYSTEM: Denies dizziness, headache, diplopia or syncopal episodes. PAST MEDICAL HISTORY: COPD, chronic respiratory failure with hypoxia, depression, fatty liver, folate deficiency, anxiety disorder, migraines, cervical cancer, hypertension, marijuana abuse, protein-calorie malnutrition, history of tobacco abuse. PAST SURGICAL HISTORY: Back surgery, L5-S1 diskectomy in 2003, LEEP, appendectomy, bilateral cataracts, hysterectomy and right shoulder surgery in 2004 and in 2005. SOCIAL HISTORY: Does not use alcohol. Uses marijuana. Tobacco abuse. States she has not used tobacco since her last admission. Typically, she smokes 5 cigarettes daily and has a [id number] history. FAMILY HISTORY: Her father is at age 74 with respiratory failure. He was diagnosed with COPD. Her mother was at age 65 from coronary artery disease. She also was diagnosed with congestive heart failure. She has a sister with lupus. [place], [place] REPORT OF CONSULTATION [facility]: [id number] UN[facility] #: [id number] ROOM: [facility] DOCTOR: DIVYA OLIVIER DO BIRTHDATE: [birth year] MEDICATIONS: DuoNeb, Mucinex, Levaquin 750 mg daily, Solu-Medrol 60 mg b.i.d., Chantix, Ambien, Remeron, Prilosec, Lovenox, DVT prophylaxis, and other p.r.n. medications. DRUG ALLERGIES: ALLERGIC TO MORPHINE, NAPROXEN, AND OXAPROZIN. LABORATORY DATA: On 11/17/2017, CBC: White blood cells 22.1, hemoglobin 12.7, hematocrit 39.6, platelet count 322,000. Leukocytosis has been resolving. CBC today, white blood cells 9.2, hemoglobin 12, hematocrit 37.6, platelet count 371,000. BMP today, sodium 136, potassium 4.6, chloride 100, CO2 of 28, BUN 11, creatinine 0.72, glucose 124. Blood cultures are pending. Preliminary results show no bacterial growth. DIAGNOSTIC DATA: Chest x-ray performed on 11/17/2017 revealed clear lungs. ASSESSMENT: 1. Resolving sepsis. 2. Pneumonitis. 3. Chronic obstructive pulmonary disease with acute exacerbation. 4. Depression. 5. Fatty liver. 6. Generalized anxiety disorder. 7. Chronic back pain. 8. Chronic respiratory failure with hypoxia. 9. Hypertension. 10. Tobacco abuse. 11. Leukocytosis that is resolving. PLAN OF MANAGEMENT: Continue current dose of steroids, antibiotics and bronchodilator therapy. Continue other p.r.n. medications. Further recommendations based on the patient's symptoms and progression of disease. Continue oxygen supplementation. Divya Olivier DO RUDI STAUFFER MD CM:CONSTR:REPORT OF CONSULTATION 1214 11/20/17 2107 interface
--- NOTE | ~2017-11-17 | PR ---
[place], [place] PROGRESS NOTE NAME: GABRIELA GARNER [facility] #: [id number] UNIT #: [id number] ROOM: 408 DOCTOR: XIOMY GONSALEZ MD,RUDI BIRTHDATE: [birth year] DOS: 11/23/2017 SUBJECTIVE: The patient noted comfortable, ambulating with improvement in symptoms of shortness of breath, cough, and wheezing. The patient has been improving gradually. Denies any symptoms of chest pain. OBJECTIVE: VITAL SIGNS: The patient showed normal temperature, respiratory rate 18, heart rate of 90, blood pressure 130/71. The pulse oxygen saturation on room air 96% saturation. HEENT: Examination shows head was atraumatic. Eyes: No icterus. NECK: Supple. CARDIOVASCULAR: S1, S2 is audible. LUNGS: The patient was noted without any crackles. Mild expiratory wheezing. ABDOMEN: Flat, soft, and nontender. EXTREMITIES: Without any acute edema. LABORATORY DATA: BMP today for the patient noted potassium 3.3. CBC: Hemoglobin 11.6, remaining CBC were normal. IMPRESSION: 1. The patient with progressive resolution of acute exacerbation of chronic obstructive pulmonary disease, acute bronchitis with current medical management. 2. Mild hypokalemia. PLAN OF MANAGEMENT: Supplementation potassium, home discharge tapering dose of prednisone. Complete abstinence of tobacco use was recommended. Other supportive therapy, plan of management to be continued previously in progress. Usual care. Outpatient followup to be kept previously scheduled in the office. RUDI STAUFFER MD CM:PNTRANS [id number] RUDI GONSALEZ MD 12/01/17 1023 interface
--- NOTE | ~2017-11-17 | PR ---
[place], [place] PROGRESS NOTE NAME: GABRIELA GARNER [facility] #: [id number] UNIT #: [id number] ROOM: 408 DOCTOR: DIVYA OLIVIER DO BIRTHDATE: [birth year] DOS: 11/21/2017 SUBJECTIVE: The patient is alert and oriented. She is sitting up eating breakfast. She states that she is feeling a little bit better today. She continues to have wheezing and shortness of breath with exertion. Denies any lightheadedness, headache, chest pain, nausea, vomiting, diarrhea, hemoptysis, hematemesis or hematochezia. OBJECTIVE: VITAL SIGNS: Temperature 97.4, heart rate currently 72, respirations 20, blood pressure 142/68, pulse ox 100% on 2 liters nasal cannula. Heart rates have been noted in the low 100s. HEENT: Head is atraumatic. Eyes nonicteric. NECK: Supple. CARDIOVASCULAR: S1, S2 audible. LUNGS: Reduced breath sounds bilaterally. The patient is noted to have diffuse expiratory wheezes. This is decreased from yesterday. No crackles. ABDOMEN: Soft, nontender, nondistended. Bowel sounds present. EXTREMITIES: No acute edema. MUSCULOSKELETAL: No acute deformities. NEUROLOGIC: Cranial nerves 2-12 grossly intact. No focal deficits. VISIBLE SKIN: No lesions or rashes. LABORATORY DATA: Most recent labs from 11/19/2017 include white blood cells 9.1, hemoglobin 12, hematocrit 37.6, platelet count 371,000. BMP also from 11/19/2017 shows sodium 136, potassium 4.6, chloride 100, CO2 of 28, BUN 11, creatinine 0.72. IMPRESSION: 1. Recurrence of acute exacerbation of chronic obstructive pulmonary disease. 2. Leukocytosis that has resolved. 3. Tree-in-bud opacity noted bilateral nodules in the lung, possibly due to chronic infection with Mycobacterium avium complex. Other atypical infections considered. 4. History of nicotine dependence. Discontinued for the past several weeks. She is using Chantix. PLAN OF MANAGEMENT: Continue use of corticosteroids, bronchodilators, and antibiotics, no changes to be done at this time. The patient is improving on current management. Culture of bronchial washings from 11/03/2017 show normal alexandra. Continue supportive management. Additional treatment changes to be made based on the progression of the illness. Monitor disease progression. Continue to abstain from tobacco use. Divya Olivier DO [place], [place] PROGRESS NOTE NAME: GABRIELA GARNER UNIT #: [id number] ROOM: [facility] DOCTOR: DIVYA OLIVIER DO BIRTHDATE: [birth year] RUDI STAUFFER MD CM:MAGDALENA [id number] DIVYA OLIVIER DO 11/21/17 1451 interface
--- NOTE | ~2017-11-17 | PR ---
[place], [place] PROGRESS NOTE NAME: GABRIELA GARNER UNIT #: [id number] ROOM: 408 DOCTOR: RUDI LARSEN MD BIRTHDATE: [birth year] DOS: 11/21/2017 PULMONARY ADDENDUM NOTE SUBJECTIVE: The patient independently seen and examined in ooiw-eo-tsem encounter, history was confirmed. Physical examination performed. The assessment and management of the patient today's note was personally completed. Note done by the medical assistant cardiology, was approved. She has been noted with reduction in symptoms of shortness of breath, tachypnea and coughing and wheezing in the last 24 hours. Denies symptoms of chest pain, hemoptysis, or abdominal pain. She was continued on corticosteroids, bronchodilators, and other treatments. OBJECTIVE: VITAL SIGNS: This morning, normal temperature, respiratory rate 20, heart rate 72, blood pressure 142/68. The pulse oxygen saturation on 2 liters nasal cannula 100% saturation. HEENT: Examination shows head was atraumatic. Eyes nonicterus. NECK: Supple. CARDIOVASCULAR: S1, S2 is audible. LUNGS: The patient noted with moderate expiratory wheezing, partially decreased from yesterday's examination. There were no crackles. ABDOMEN: Soft, bowel sounds present. EXTREMITIES: Without any acute edema. IMPRESSION: 1. The patient with recurrence of acute exacerbation of chronic obstructive pulmonary disease, currently responding to treatment gradually with current medical management. 2. The patient with the previously noted pulmonary nodule and the culture for bacterial infection was noted negative. 3. Isolation of penicillium species on 11/03/2017, most like inhalation at home could be causing the patient a recurrence of the illness. There was no eosinophilia noted on the CBCs. PLAN OF TREATMENT: Continue antibiotics, bronchodilators, oxygen supplementation and other plan of care, patient as in progress. No additional change in the treatment done, the patient will be necessary. All other treatment as previously ordered will be continued. [place], [place] PROGRESS NOTE NAME: GABRIELA GARNER UNIT #: [id number] ROOM: 408 DOCTOR: RUDI LARSEN MD BIRTHDATE: [birth year] RUDI STAUFFER MD CM:PNTRANS [id number] RUDI GONSALEZ MD 11/21/17 1904 interface
--- NOTE | ~2017-11-17 | CON ---
[place], [place] REPORT OF CONSULTATION NAME: GABRIELA GARNER [facility] #: [id number] UNIT #: [id number] ROOM: 408 DOCTOR: XIOMY GONSALEZ MDRUDI BIRTHDATE: [birth year] DOS: 11/20/2017 PULMONARY CONSULTATION, EVALUATION, AND MANAGEMENT CONSULTATION REQUESTED BY: Hospitalist service. REASON FOR CONSULTATION: For assessment of the exacerbation of COPD. The patient was independently seen and examined for the today's consultation. The history was confirmed. Physical examination performed. Labs reviewed. Assessment and management personally completed. Changes in the medical management of the patient were personally made for the current visit as well. HISTORY OF PRESENT ILLNESS: A 57-year-old white female patient known with past history of htzpgarm-jl-fqeqci COPD, who has been treated in this hospital a few times for the same symptom. The patient has been treated in this hospital in 10/2017. She was treated, the patient underwent fiberoptic bronchoscopy as she was noted with some tree-in-bud nodular density in the lungs. The bronchoscopy done in 11/03/2017 after reviewing the culture, which was noted no bacterial growth and improvement in acute exacerbation of COPD. She was discharged home on tapering dose of prednisone and the antibiotics. The patient presented back to the hospital. The patient readmitted to the hospital on 11/17/2017. The patient has been noted symptoms with increased chest congestion as well as tightness in the chest. The patient's symptoms have been noted gradually worsening, requiring assessment in the Emergency Room. She has been admitted to the hospital because of worsening of the respiratory symptom. The cough has been noted mostly nonproductive. The patient denies any symptoms of fever or chills with current symptom. She does have symptoms of increased shortness of breath that occurs with exertion as well as wheezing and tightness in the chest. The patient has been recently bitten on the arm by the dog as well on the right forearm. The patient has been currently treated for a recurrent and acute exacerbation of COPD with corticosteroids and then the medical management was ordered accordingly. She has been still noted symptoms of shortness of breath that has been present severely for the patient associated wheezing and nonproductive cough. Sputum expectoration symptom noted only small quantity. REVIEW OF SYSTEMS: Already completed by the medical typist, the dictation of the patient was approved. PAST MEDICAL HISTORY: 1. Cvcqwvrp-mq-beibgf COPD and acute on chronic hypoxic respiratory failure, use of oxygen supplementation 3 liters nasal cannula. 2. Allergic rhinitis. 3. Anxiety and depression. 4. History of past nicotine use. 5. Tree-in-bud opacity noted in the lungs, status post bronchoscopy, pending cultures of the acid fast. The bacterial culture was noted as no bacterial growth for the patient in the early portion of 10/2017. PAST SURGICAL HISTORY: [place], [place] REPORT OF CONSULTATION NAME: GABRIELA GARNER UNIT #: [id number] ROOM: [facility] DOCTOR: XIOMY GONSALEZ MD,RUDI BIRTHDATE: [birth year] 1. Complete hysterectomy. 2. Lumbar laminectomy. 3. Appendectomy. 4. Therapeutic bronchoscopy in 02/2017 and then in 10/2017. SOCIAL HISTORY: The patient is and lives at home. She has been noted history of tobacco use from age of [age] years old, half a pack of cigarettes per day, stating that she has not been smoking cigarettes at the present time since she has been discharged from the hospital. She does have 2 children. Denies history of chronic alcohol or any history of illicit drugs. FAMILY HISTORY: Father at 70 years old, complication of COPD. Mother at 65 with complication related to the congestive heart failure. CURRENT MEDICATIONS: Administered for this were noted as use of Solu-Medrol intravenously, Remeron, ferrous sulfate, imipramine, Chantix, folic acid, loratadine, Lovenox, DuoNeb every 4 hours, tizanidine, Levaquin, and other p.r.n. medications. DRUG ALLERGIES: THE PATIENT NOTED ALLERGY: 1. MORPHINE. 2. NAPROXEN. 3. DAYPRO. PHYSICAL EXAMINATION: GENERAL: This is a 57-year-old female patient currently sitting on the bed without any acute distress except mild tachypnea. Height of 5 feet 7 inches, weight 143 pounds, BMI 22.4. VITAL SIGNS: Normal temperature of the patient noted since admission in the last 48 hours. The respiratory rate ranged between 17-20, heart rate of 110 on admission, currently noted as 84, blood pressure 124/75, 132/58. Pulse ox saturation on 3 liters nasal cannula and 2 liters nasal cannula, 94 and 95% saturation recorded at rest. HEENT: Head was atraumatic. Eyes nonicterus. NECK: Supple. CARDIOVASCULAR: S1, S2 audible. LUNGS: The patient was noted with general reduction in the breath sounds bilaterally. The patient noted with diffuse expiratory wheezing, which are noted vbfyxghg-vd-wbdsfy. There were no crackles. ABDOMEN: Soft, flat, nontender, bowel sounds present. EXTREMITIES: Without any acute edema. MUSCULOSKELETAL: The patient was noted without any acute deformities. CENTRAL NERVOUS SYSTEM: Cranial nerves 2-12 intact without focal deficits. VISIBLE SKIN: No lesions or rashes. LABORATORY DATA: PT/PTT on admission 11/17/2017 normal. CMP of the patient on admission 11/17/2017 grossly normal. CBC on 11/17/2017, WBC count 22.1, hemoglobin and hematocrit normal, platelet count normal. Lactic acid 2.8 noted on admission, on 11/17/2017. Troponin 3 times cycle noted normal as well on 11/17/2017. CBC followup on 11/18/2017, WBC count 14.5. Remaining CBC was [place], [place] REPORT OF CONSULTATION NAME: GABRIELA GARNER UNIT #: [id number] ROOM: [facility] DOCTOR[facility] BIR[facility]: [birth year] normal. Blood culture from the 11/17/2017 to assess aerobic, anaerobic bottles were noted, no bacterial growths. A one-view chest x-ray of the patient that was done on 11/17/2017, the patient noted without any acute pulmonary infiltration. IMPRESSION: 1. The patient was been currently admitted to the hospital, the patient noted with recurrence of acute exacerbation of chronic obstructive pulmonary disease, significant leukocytosis, decreased with current use of medication. 2. Tree-in-bud opacity noted bilateral nodules in the lung. 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 Other atypical infections with pending culture results. 3. History of past nicotine dependence, which has been discontinued for the past several weeks with the use of Chantix as per patient. PLAN OF MANAGEMENT: Agree with current use of corticosteroids, bronchodilators, antibiotics. No changes to be done. Monitor culture results of the recent bronchoscopy for the Mycobacterium. So far, the update for the patient's culture report has not been noted and remains pending from the lab. Other supportive therapy, plan of management at this time to be continued. Usual care, other supportive plan of therapy and plan of management and treatment. Other additional treatment changes to be made for the patient based on the progression of the illness. Continue abstinence of tobacco use was advised. If the symptoms worsen with the patient and does not respond to current treatment, certainly consider repeating the fibrobronchoscopy. RUDI STAUFFER MD CM:CONSTR:REPORT OF CONSULTATION 1416 11/20/17 1834 interface
--- NOTE | ~2017-11-17 | PR ---
[place], [place] PROGRESS NOTE NAME: GABRIELA GARNER [facility] #: [id number] UNIT #: [id number] ROOM: 408 DOCTOR: XIOMY GONSALEZ MD,RUDI BIRTHDATE: [birth year] DOS: 11/22/2017 SUBJECTIVE: The patient continued to show significant reduction in respiratory symptom noted in the lateral part reduction in the wheezing and shortness of breath with cough has been noted mild without any sputum expectoration or symptoms of chest pain. OBJECTIVE: VITAL SIGNS: Normal temperature, respiratory rate 20, heart rate of 90, blood pressure 179/90. Pulse oxygen saturation on room air 96% saturation. HEENT: Examination shows head was atraumatic. Eyes nonicterus. NECK: Supple. CARDIOVASCULAR: S1, S2 audible. LUNGS: The patient noted improvement in air entry with decreased wheezing. The wheezing was not completely resolved, but decreased since admission. ABDOMEN: Soft, nontender. EXTREMITIES: Without acute edema. IMPRESSION: Progressive, but gradual resolution of the acute exacerbation of chronic obstructive pulmonary disease was noted. The patient with acute bronchitis, responding current treatment progressively. PLAN OF TREATMENT: Dose of Solu-Medrol will be further decreased to 40 mg daily with her sponsor treatment changes will be done by tomorrow. The patient does well. She would be considered for possible home discharge after that. In the meantime, no other changes in treatment. She will be continued with the bronchodilators and other treatments. RUDI STAUFFER MD CM:PNTRANS [phone] RUDI GONSALEZ MD 11/22/171944 interface
--- NOTE | ~2017-11-17 | EKG ---
[place], [place] ELECTROCARDIOGRAM REPORT NAME: GABRIELA GARNER UNIT #: [id number] ROOM: 408 DOCTOR: TAPAN DRAFT REPORT BIRTHDATE: [address] [facility] Test Date: 2017-11-17 Test Time: 16:12:55 Pat Name: GABRIELA GARNER Department: Room: Gender: F Account Advisor: : 1960 Requested By: JIMBO COHN Order Number: [id number] Reading MD: Jaun Farias MD Measurements Intervals [place] Rate: 104 P: 71 NH: 125 QRS: 29 QRSD: 59 T: 61 QT: 324 QTc: 427 Interpretive Statements Sinus tachycardia Electronically Signed On 11-17-2017 19:24:30 PDT by Jaun Farias MD CM:EKGRPT:ELECTROCARDIOGRAM REPORT 1612 JIMBO COHN EPIPHANY DRAFT REPORT JIMBO COHN
[~2017-11-17 15:43] MED LIST changes: +BUSPIRONE15 MG PO; +MIRTAZAPINE30 M1 PO; +MUCINEX ER600 MG PO; +VENTOLIN,PR2 MG/5 ML INH; +VITAMIN D22000 UNIT PO
[2017-11-17 15:49] VITALS: BP 121/65
[2017-11-17 16:40] LABS: ACT PARTIAL THROMBO TIME 24.5 SECONDS (20.8-31.5); INTERNATIONAL NORM RATIO 0.9 (2.0-3.5)
[2017-11-17 16:47] LABS: ALBUMIN 4.2 gm/dl (3.1-4.5); ALKALINE PHOSPHATASE 106 U/L (45-117); BUN 12 mg/dl (7-24); CHLORIDE 97 mmol/L (98-107); CREATININE 0.92 mg/dL (0.55-1.02); POTASSIUM 4.7 mmol/L (3.5-5.1); SGOT/AST 18 IU/L (3-35); SGPT/ALT 33 U/L (12-78); SODIUM 134 mmol/L (136-145); TOTAL PROTEIN 8.1 gm/dL (6.4-8.2)
[2017-11-17 16:49] LABS: TROPONIN I < 0.015 ng/ml (<0.045)
[2017-11-17 17:01] LABS: BASO # 0.1 10*3/uL (0.0-0.1); BASO % 0.5 % (0.0-1.0); EOS # 0.2 10*3/uL (0.0-0.4); EOS % 0.7 % (1.0-4.0); HEMATOCRIT 39.6 % (37.0-47.0); HEMOGLOBIN 12.7 g/dl (12.0-16.0); LYMPH % 13.4 % (27.0-41.0); MEAN CELL VOLUME 95.4 fl (81.0-99.0); MEAN CORPUSCULAR HGB 30.6 pg (27.0-31.0); MEAN CORPUSCULAR HGB CONC 32.1 g/dl (33.0-37.0); MEAN PLATELET VOLUME 9.6 fl (9.6-12.3); MONO # 1.2 10*3/uL (0.1-1.0); MONO % 5.3 % (3.0-9.0); NEUT # 17.6 10*3/uL (2.3-7.9); NEUT % 79.6 % (47.0-73.0); PLATELET COUNT AUTOMATED 322 10*3/uL (130-400); RED BLOOD COUNT 4.15 10*6/uL (4.10-5.10); RED CELL DISTRI WIDTH 14.9 % (0-14.5); WHITE BLOOD COUNT 22.1 10*3/uL (4.8-10.8)
[2017-11-17 17:39] VITALS: BP 102/56
[2017-11-17 17:45] VITALS: BP 109/62
[2017-11-17 17:48] VITALS: BP 109/62
[2017-11-17] MEDS ORDERED: CHANTIX1 M1 PO (17:56)
[2017-11-17] MEDS ORDERED: DOXYCYCLINE100 M3 PO (17:57)
[2017-11-17] MEDS ORDERED: POTASSIUM99 M5 PO (17:59)
[2017-11-17] MEDS ORDERED: TOFRANIL PO (18:01)
[2017-11-17] MEDS ORDERED: VITAMIN C250 M2 PO (18:03)
[2017-11-17] MEDS ORDERED: PRILOSEC20 M1 PO (18:04)
[2017-11-17] MEDS ORDERED: FEOSOL325 MG PO (18:06)
[2017-11-17 20:00] VITALS: BP 105/58
[2017-11-18] VITALS: BP 133/70
[2017-11-18 06:10] LABS: BASO # 0.1 10*3/uL (0.0-0.1); BASO % 0.5 % (0.0-1.0); EOS # 0.2 10*3/uL (0.0-0.4); HEMATOCRIT 40.2 % (37.0-47.0); HEMOGLOBIN 12.3 g/dl (12.0-16.0); LYMPH # 1.6 10*3/uL (1.3-4.4); LYMPH % 11.1 % (27.0-41.0); MEAN CORPUSCULAR HGB 30.6 pg (27.0-31.0); MEAN CORPUSCULAR HGB CONC 30.6 g/dl (33.0-37.0); MEAN PLATELET VOLUME 9.4 fl (9.6-12.3); MONO # 0.7 10*3/uL (0.1-1.0); MONO % 4.8 % (3.0-9.0); NEUT # 11.9 10*3/uL (2.3-7.9); NEUT % 82.2 % (47.0-73.0); PLATELET COUNT AUTOMATED 346 10*3/uL (130-400); RED BLOOD COUNT 4.02 10*6/uL (4.10-5.10); RED CELL DISTRI WIDTH 14.8 % (0-14.5); WHITE BLOOD COUNT 14.5 10*3/uL (4.8-10.8)
[2017-11-18 06:21] LABS: ACT PARTIAL THROMBO TIME 26.5 SECONDS (20.8-31.5); INTERNATIONAL NORM RATIO 0.9 (2.0-3.5)
[2017-11-18 06:47] LABS: ALBUMIN 3.6 gm/dl (3.1-4.5); ALKALINE PHOSPHATASE 97 U/L (45-117); BUN 15 mg/dl (7-24); CHLORIDE 99 mmol/L (98-107); CHOLESTEROL 229 mg/dL (<200); CREATININE 0.81 mg/dL (0.55-1.02); FREE T4 0.97 ng/dl (0.76-1.46); HDL CHOLESTEROL 77 mg/dl (40-60); LDL CHOLESTEROL 127 mg/dL (9-159); PHOSPHOROUS 3.4 mg/dL (2.5-4.9); POTASSIUM 4.4 mmol/L (3.5-5.1); SGOT/AST 18 IU/L (3-35); SGPT/ALT 29 U/L (12-78); SODIUM 134 mmol/L (136-145); TOTAL PROTEIN 7.4 gm/dL (6.4-8.2); TRIGLYCERIDES 123 mg/dl (<150); VLDL CHOLESTEROL 25 mg/dL (6-40)
[2017-11-18 07:14] LABS: VITAMIN D, 25-HYDROXY 13.8 ng/mL (30-100)
[2017-11-18 08:00] VITALS: BP 122/62; BP 140/70
[2017-11-18 12:00] VITALS: BP 138/71
[2017-11-18 16:00] VITALS: BP 131/65
[2017-11-18] MEDS ORDERED: REMERON30 M1 PO (16:41)
[2017-11-18] MEDS ORDERED: AMBIEN10 M1 PO (16:41)
[2017-11-18 20:00] VITALS: BP 123/68
[2017-11-19] VITALS: BP 121/71
[2017-11-19 07:08] LABS: BASO % 0.1 % (0.0-1.0); HEMATOCRIT 37.6 % (37.0-47.0); LYMPH % 11.4 % (27.0-41.0); MEAN CELL VOLUME 96.7 fl (81.0-99.0); MEAN CORPUSCULAR HGB 30.8 pg (27.0-31.0); MEAN CORPUSCULAR HGB CONC 31.9 g/dl (33.0-37.0); MEAN PLATELET VOLUME 9.2 fl (9.6-12.3); MONO # 0.5 10*3/uL (0.1-1.0); MONO % 5.8 % (3.0-9.0); NEUT # 7.6 10*3/uL (2.3-7.9); NEUT % 82.5 % (47.0-73.0); PLATELET COUNT AUTOMATED 371 10*3/uL (130-400); RED BLOOD COUNT 3.89 10*6/uL (4.10-5.10); WHITE BLOOD COUNT 9.2 10*3/uL (4.8-10.8)
[2017-11-19 07:16] LABS: BUN 11 mg/dl (7-24); CHLORIDE 100 mmol/L (98-107); CREATININE 0.72 mg/dL (0.55-1.02); POTASSIUM 4.6 mmol/L (3.5-5.1); SODIUM 136 mmol/L (136-145)
[2017-11-19 07:59] VITALS: BP 129/65
[2017-11-19 12:00] VITALS: BP 132/58
[2017-11-19 16:00] VITALS: BP 118/66
[2017-11-19 20:00] VITALS: BP 124/75
[2017-11-20] VITALS: BP 148/73
[2017-11-20 08:00] VITALS: BP 132/69
[2017-11-20 12:00] VITALS: BP 133/75
[2017-11-20 16:00] VITALS: BP 145/66
[2017-11-20 20:00] VITALS: BP 142/64
[2017-11-21] VITALS: BP 137/78
[2017-11-21 08:00] VITALS: BP 142/68
[2017-11-21 12:00] VITALS: BP 152/72
[2017-11-21 16:00] VITALS: BP 147/72
[2017-11-21 20:00] VITALS: BP 150/73
[2017-11-22] VITALS: BP 150/86
[2017-11-22 06:24] LABS: BASO % 0.2 % (0.0-1.0); HEMATOCRIT 40.2 % (37.0-47.0); HEMOGLOBIN 12.5 g/dl (12.0-16.0); LYMPH # 1.5 10*3/uL (1.3-4.4); LYMPH % 12.8 % (27.0-41.0); MEAN CELL VOLUME 98.3 fl (81.0-99.0); MEAN CORPUSCULAR HGB 30.6 pg (27.0-31.0); MEAN CORPUSCULAR HGB CONC 31.1 g/dl (33.0-37.0); MEAN PLATELET VOLUME 9.4 fl (9.6-12.3); MONO # 0.6 10*3/uL (0.1-1.0); MONO % 5.6 % (3.0-9.0); NEUT # 9.2 10*3/uL (2.3-7.9); NEUT % 80.9 % (47.0-73.0); PLATELET COUNT AUTOMATED 381 10*3/uL (130-400); RED BLOOD COUNT 4.09 10*6/uL (4.10-5.10); RED CELL DISTRI WIDTH 14.4 % (0-14.5); WHITE BLOOD COUNT 11.4 10*3/uL (4.8-10.8)
[2017-11-22 06:38] LABS: ALBUMIN 3.6 gm/dl (3.1-4.5); ALKALINE PHOSPHATASE 102 U/L (45-117); BUN 23 mg/dl (7-24); CHLORIDE 101 mmol/L (98-107); CREATININE 0.81 mg/dL (0.55-1.02); POTASSIUM 4.1 mmol/L (3.5-5.1); SGOT/AST 6 IU/L (3-35); SGPT/ALT 31 U/L (12-78); SODIUM 141 mmol/L (136-145); TOTAL PROTEIN 7.1 gm/dL (6.4-8.2)
[2017-11-22 08:00] VITALS: BP 161/83
[2017-11-22 09:10] VITALS: BP 160/86
[2017-11-22 12:00] VITALS: BP 179/91
[2017-11-22 16:00] VITALS: BP 161/87
[2017-11-22 20:00] VITALS: BP 144/80
[2017-11-23] VITALS: BP 155/86
[2017-11-23 06:47] LABS: BASO % 0.2 % (0.0-1.0); EOS # 0.1 10*3/uL (0.0-0.4); EOS % 0.9 % (1.0-4.0); HEMOGLOBIN 11.6 g/dl (12.0-16.0); LYMPH # 3.7 10*3/uL (1.3-4.4); LYMPH % 37.2 % (27.0-41.0); MEAN CELL VOLUME 97.4 fl (81.0-99.0); MEAN CORPUSCULAR HGB 30.5 pg (27.0-31.0); MEAN CORPUSCULAR HGB CONC 31.4 g/dl (33.0-37.0); MEAN PLATELET VOLUME 9.5 fl (9.6-12.3); MONO # 0.8 10*3/uL (0.1-1.0); MONO % 7.8 % (3.0-9.0); NEUT # 5.3 10*3/uL (2.3-7.9); PLATELET COUNT AUTOMATED 330 10*3/uL (130-400); RED CELL DISTRI WIDTH 14.5 % (0-14.5)
[2017-11-23 07:31] LABS: CHLORIDE 99 mmol/L (98-107); POTASSIUM 3.3 mmol/L (3.5-5.1); SODIUM 138 mmol/L (136-145)
[2017-11-23 07:47] LABS: ALBUMIN 3.4 gm/dl (3.1-4.5); ALKALINE PHOSPHATASE 89 U/L (45-117); BUN 21 mg/dl (7-24); CREATININE 0.88 mg/dL (0.55-1.02); SGOT/AST 14 IU/L (3-35); SGPT/ALT 43 U/L (12-78); TOTAL PROTEIN 6.3 gm/dL (6.4-8.2)
[2017-11-23 08:00] VITALS: BP 131/71
[2017-11-23 08:15] VITALS: BP 118/66
[2017-11-23 12:00] VITALS: BP 159/81
[2017-11-23] MEDS ORDERED: ENSURE SUPPLEMENT PO (13:10)
[2017-11-23] MEDS ORDERED: KLOR-CON 1010 ME1 PO (13:13)
[2017-11-23] MEDS ORDERED: PROAIR HFA8.5 GM INH (13:17)
[2017-11-23] MEDS ORDERED: EPIPEN JR0.15 MG/01 IJ (13:23)
[2017-11-23] MEDS ORDERED: BUSPAR15 MG PO (13:23)
[2017-11-23] MEDS ORDERED: NEURONTIN600 MG PO (13:23)
[2017-11-23] MEDS ORDERED: LEXAPRO20 MG PO (13:26)
[2017-11-23] MEDS ORDERED: VITAMIN D50000 UNIT PO (13:26)
[2017-11-23] MEDS ORDERED: MINIPRESS2 M1 PO (13:26)
[2017-11-23] MEDS ORDERED: PREDNISONE10 MG PO (13:40)
[2017-11-23] MEDS ORDERED: MUCINEX ER600 MG PO (13:40)
[2017-11-23] MEDS ORDERED: LEVAQUIN750 M1 PO (13:40)
== END 2017-11-23 14:47 | disposition home or self-care (01) | DRG 871 ==
LOC: ED 15:43 → 4E 17:12 → EDHOLD 17:12 → 4E 17:27
PROVIDERS: Emergency Medicine; Internal Medicine; Nurse Practitioner Family
DX: A41.9 Sepsis, unspecified organism (principal); J18.9 Pneumonia, unspecified organism; J96.11 Chronic respiratory failure with hypoxia; E87.8 Other disorders of electrolyte and fluid balance, not elsewhere classified; E83.41 Hypermagnesemia; Z99.81 Dependence on supplemental oxygen; J44.1 Chronic obstructive pulmonary disease with (acute) exacerbation; E87.1 Hypo-osmolality and hyponatremia; J44.0 Chronic obstructive pulmonary disease with (acute) lower respiratory infection; R65.20 Severe sepsis without septic shock; G89.29 Other chronic pain; E87.6 Hypokalemia; J20.9 Acute bronchitis, unspecified; R91.8 Other nonspecific abnormal finding of lung field; F17.210 Nicotine dependence, cigarettes, uncomplicated; G43.909 Migraine, unspecified, not intractable, without status migrainosus; K76.0 Fatty (change of) liver, not elsewhere classified; F32.9 Major depressive disorder, single episode, unspecified; F41.1 Generalized anxiety disorder; M54.9 Dorsalgia, unspecified; R73.9 Hyperglycemia, unspecified; I10 Essential (primary) hypertension; Z71.6 Tobacco abuse counseling; Z88.5 Allergy status to narcotic agent; Z88.8 Allergy status to other drugs, medicaments and biological substances; Z90.49 Acquired absence of other specified parts of digestive tract; Z98.42 Cataract extraction status, left eye; Z98.41 Cataract extraction status, right eye; Z90.710 Acquired absence of both cervix and uterus; Z82.49 Family history of ischemic heart disease and other diseases of the circulatory system; Z83.2 Family history of diseases of the blood and blood-forming organs and certain disorders involving the immune mechanism; Z82.3 Family history of stroke; Z83.3 Family history of diabetes mellitus; Z79.899 Other long term (current) drug therapy; Z82.5 Family history of asthma and other chronic lower respiratory diseases

== ENCOUNTER 2018-02-01 16:13 | Inpatient (IN) | payer OTHER ==
[~2018-02-01] VITALS: Ht 170.2 cm; Wt 64.1 kg
--- NOTE | ~2018-02-01 | PR ---
[place], [place] PROGRESS NOTE NAME: GABRIELA GARNER [facility] #: [id number] UNIT #: [id number] ROOM: 525 DOCTOR: RUDI LARSEN MD BIRTHDATE: [birth year] DOS: 02/09/2018 SUBJECTIVE: The patient was seen and examined on 02/09/2018, was still noted severe cough, wheezing, shortness of breath with reduction of the symptom, remains unchanged, noted n.p.o. past midnight and bronchoscopy. Denies symptoms of headache, diplopia, nausea, vomiting. Denies abdominal pain. Denies symptoms of pain of the lower extremity and edema. Remaining systems were reviewed, they were noted all negative. PHYSICAL EXAMINATION: VITAL SIGNS: Normal temperature, respiratory rate 20, heart rate 87. The blood pressure 160/73-146/86. Pulse oxygen saturation on room air at rest was 95% saturation. HEAD, EYES, EARS, NOSE, AND THROAT: Head was atraumatic. Eyes nonicterus. NECK: Supple. CARDIOVASCULAR SYSTEM: S1, S2 audible. LUNGS: Noted with persistent moderate severe expiratory wheezing with decreased breath sounds. ABDOMEN: Soft, nontender. EXTREMITIES: Without acute edema. VISIBLE SKIN: No lesions or rashes. MUSCULOSKELETAL: Without acute deformities. CENTRAL NERVOUS SYSTEM: Cranial nerves 2-12 intact. LABORATORY DATA: The patient's CBC this morning, WBC count 14.4, platelet count 440,000, both elevated with normal hemoglobin and hematocrit. BMP today: BUN 31, creatinine normal, glucose 126. IMPRESSION: 1. Persistent ongoing acute exacerbation of chronic obstructive pulmonary disease with persistence of coughing and wheezing with maximum medical therapy, not responding to treatment for the past several days. 2. Mild azotemia secondary to corticosteroids. 3. Persistent leukocytosis and thrombocytosis noted partially at this time may be related to underlying pulmonary infection. PLAN OF MANAGEMENT: Continuation of the current therapy, plan of management as ordered. Bronchodilator will be continued on corticosteroids. Proceed with the fiberoptic bronchoscopy as planned. Any additional treatment changes if necessary will be done after the completion of bronchoscopy. Usual care. [place], [place] PROGRESS NOTE NAME: GABRIELA GARNER [facility] #: [id number] UNIT #: [id number] ROOM: 525 DOCTOR: RUDI LARSEN MD BIRTHDATE: [birth year] RUDI STAUFFER MD CM:PNTRANS 1011 02 RUDI GONSALEZ MD 02/09/18 1201 interface
--- NOTE | ~2018-02-01 | PR ---
[place], [place] PROGRESS NOTE NAME: GABRIELA GARNER [facility] #: [id number] UNIT #: [id number] ROOM: 525 DOCTOR: LASHANDA WILSON DO BIRTHDATE: [birth year] DOS: 02/04/2018 SUBJECTIVE: The patient was seen and examined at the bedside. She denies experiencing fevers, nausea, abdominal pain or any changes in bowel or bladder habits. She reports that she feels similar in terms of her overall status compared to yesterday. She still admits to experiencing a dry cough and chills as well as wheezing. OBJECTIVE: VITAL SIGNS: Temperature 97.6 degrees Fahrenheit, heart rate 97, respiratory rate 18, blood pressure 154/75, pulse oximetry 98% on room air. GENERAL APPEARANCE: The patient was awake, alert, responsive, cooperative and in no acute distress. HEENT: Head was normocephalic and atraumatic. No lesions or ulcerations were noted to the eyes. NECK: Trachea appears midline. HEART: Regular rate and rhythm were noted. Positive S1, S2 sounds are heard. No murmurs, rubs or gallops were appreciated. Bilateral lower extremities were without edema. PULMONARY: Wheezing and rhonchi were heard diffusely. No rales were appreciated. ABDOMEN: Soft and nontender to palpation. Bowel sounds were present and the abdomen was nondistended. EXTREMITIES: Bilateral lower extremities are without edema. No clubbing, cyanosis or erythema was noted. LABORATORY DATA: CBC from today shows white count 6.6, hemoglobin 11.9, hematocrit 36.5 and platelets at 372. Chemistries from today show sodium at 142, potassium 4.3, chloride 109, bicarbonate 25, BUN 12, creatinine 0.97, glucose 143, calcium 8.4. Microbiology remains unchanged from prior dictation from 02/03/2018. IMPRESSION: 1. Acute exacerbation of chronic obstructive pulmonary disease. 2. Left lower lobe pneumonia. 3. Chronic respiratory failure with hypoxia on supplemental oxygen therapy. 4. Normocytic anemia. 5. Hyperchloremia. 6. Hyperglycemia. 7. Tobacco abuse. PLAN OF MANAGEMENT: The patient is currently on IV Levaquin, IV vancomycin, IV Zosyn, IV Solu-Medrol, guaifenesin and bronchodilator therapy. She is also receiving nicotine replacement therapy. The patient is with negative blood cultures and sputum cultures remain uncollected. Supplemental oxygen should be titrated to maintain pulse oximetry at 92% or greater. From a pulmonary standpoint, no changes need to be made at this time. Pulmonary medicine will continue to follow. [place], [place] PROGRESS NOTE NAME: GABRIELA GARNER UNIT #: [id number] ROOM: [facility] DOCTOR: LASHANDA WILSON DO BIRTHDATE: [birth year] Lashanda Wilson DO RUDI STAUFFER MD CM:PNTRANS 1203 1301 LASHANDA WILSON DO 02/04/18 1259 interface
--- NOTE | ~2018-02-01 | PR ---
[place], [place] PROGRESS NOTE NAME: GABRIELA GARNER [facility] #: [id number] UNIT #: [id number] ROOM: 525 DOCTOR: LASHANDA WILSON DO BIRTHDATE: [birth year] DOS: 02/05/2018 SUBJECTIVE: The patient was seen and examined at the bedside. She denies fevers, chills, chest pain, nausea, vomiting, abdominal pain or any changes in bowel or bladder habits. She does report continuing shortness of breath as well as wheezing and a dry cough. She feels that her respiratory status remains unchanged overall. OBJECTIVE: VITAL SIGNS: Temperature 98.6 degrees Fahrenheit, heart rate 71, respiratory rate 20, blood pressure 157/78 and pulse oximetry 95% on room air. GENERAL APPEARANCE: The patient was awake, alert, responsive, cooperative and in no acute distress. HEENT: Head is normocephalic and atraumatic. No lesions or ulcerations were noted to eye. NECK: Trachea appears midline. HEART: Regular rate and rhythm were noted. Positive S1, S2 sounds were heard. No murmurs, rubs or gallops were appreciated. LUNGS: Bilateral lower extremities were without edema. PULMONARY: Wheezing and rhonchi were heard diffusely. No rales were appreciated. ABDOMEN: Soft and nontender to palpation. Bowel sounds were present. The abdomen was nondistended. EXTREMITIES: Bilateral lower extremities were without edema. No clubbing, cyanosis or erythema was noted. LABORATORY DATA: Most recent CBC from today shows white count 11.6, hemoglobin 11.5, hematocrit 34.8 and platelets 374. Most recent chemistries from today show sodium 143, potassium 4.5, chloride 108, bicarbonate 30, BUN 17, creatinine 0.90, glucose 111 and calcium 8.7. Microbiology remains unchanged from prior dictation from 02/03/2018. IMPRESSION: 1. Acute exacerbation of chronic obstructive pulmonary disease. 2. Acute bronchiolitis, improving. 3. Chronic respiratory failure. 4. Normocytic anemia. 5. Lymphopenia. 6. Hyperchloremia. 7. Hyperglycemia. 8. Tobacco abuse. PLAN OF MANAGEMENT: The patient is currently on IV triple antibiotic therapy with Levaquin, vancomycin and Zosyn. She is also on IV Solu-Medrol, bronchodilator therapy, guaifenesin as well as as needed nicotine replacement therapy. Sputum cultures are to be collected. Supplemental oxygen should be titrated to maintain pulse oximetry at 92% or greater. From a pulmonary standpoint, no changes in treatment is needed at this time. Pulmonary medicine will continue to follow. [place], [place] PROGRESS NOTE NAME: GABRIELA GARNER UNIT #: [id number] ROOM: [facility] DOCTOR: LASHANDA WILSON DO BIRTHDATE: [birth year] Lashanda Wilson DO RUDI STAUFFER MD CM:PNTRANS 1221 1253 LASHANDA WILSON DO 02/05/18 1251 interface
--- NOTE | ~2018-02-01 | PR ---
[place], [place] PROGRESS NOTE NAME: GABRIELA GARNER [facility] #: [id number] UNIT #: [id number] ROOM: 525 DOCTOR: LASHANDA WILSON DO BIRTHDATE: [birth year] DOS: 02/06/2018 SUBJECTIVE: The patient was seen and examined at the bedside. She denies fevers, chills, chest pain, nausea, vomiting, abdominal pain or any changes in bowel or bladder habits. She states that her breathing feels improved today. She is still experiencing a dry cough as well as wheezing. OBJECTIVE: VITAL SIGNS: Show temperature 97.8 degrees Fahrenheit, heart rate 85, respiratory rate 19, pulse oximetry 97% on room air, blood pressure 168/90. GENERAL APPEARANCE: The patient was awake, alert, responsive, cooperative and in no acute distress. HEENT: Head is normocephalic and atraumatic. No lesions or ulcerations were noted to the eyes. NECK: Trachea appears midline. HEART: Regular rate and rhythm were noted. Positive S1, S2 sounds were heard. No murmurs, rubs or gallops were appreciated. LUNGS: Wheezing and rhonchi were heard diffusely. No rales were appreciated. ABDOMEN: Soft, nontender to palpation. Bowel sounds were present. The abdomen was nondistended. EXTREMITIES: Bilateral lower extremities were without edema. No clubbing, cyanosis or erythema was noted. LABORATORY DATA: CBC from today shows white count 11.4, hemoglobin 12.7, hematocrit 40.6, platelets 347. Chemistries from today show sodium 138, potassium 5.2, chloride 103, bicarbonate 29, BUN 18, creatinine 0.90, glucose 157, calcium 8.8. Microbiology remains unchanged from prior dictation on 02/03/2018. IMPRESSION: 1. Acute exacerbation of chronic obstructive pulmonary disease, improving. 2. Resolving acute bronchitis. 3. Chronic respiratory failure. 4. Hyperkalemia. 5. Lymphopenia. 6. Hyperglycemia. 7. Tobacco abuse. PLAN OF MANAGEMENT: The patient is currently on oral azithromycin, IV Solu-Medrol, guaifenesin, bronchodilator therapy and as needed nicotine replacement therapy. From a pulmonary standpoint at this time, no changes need to be made to the patient's current plan of treatment. Lashanda Wilson DO [place], [place] PROGRESS NOTE NAME: GABRIELA GARNER [facility] UNIT #: [id number] ROOM: 525 DOCTOR: LASHANDA WILSON DO BIRTHDATE: [birth year] RUDI STAUFFER MD CM:MAGDALENA 1205 [id number] LASHANDA WILSON DO 02/06/18 1248 interface
--- NOTE | ~2018-02-01 | PROC NOTE ---
[place], [place] PROCEDURE NOTE NAME[id number] UN[facility] #: [id number] ROOM: 525 DOCTOR: XIOMY GONSALEZ MD,RUDI BIRTHDATE: [birth year] DOS: 02/09/2018 BRONCHOSCOPY NOTE PREOPERATIVE DIAGNOSES: Severe cough and wheezing, not resolving with current medical management with ongoing chronic obstructive pulmonary disease exacerbation. POSTOPERATIVE DIAGNOSES: Removal of moderate mucus impaction from endobronchial tree bilaterally. There were no endobronchial obstructive lesions. PROCEDURE DESCRIPTION: Informed consent obtained from the patient. The patient brought to the OR and placed in supine position. Conscious sedation was administered by the Anesthesia Department. After achieving appropriate sedation, airway was introduced into the mouth. Bronchoscope was advanced to airway into laryngeal area. Epiglottis and vocal cords were seen. Bronchoscope was advanced to vocal cord and tracheal lumen, noted moderate amount of thick mucus secretions, suctioned out to the brian level. The brian was noted sharp. Right upper, right middle, right lower, left upper, lingula, bronchi were all examined. Moderate thick plugs were present in the endobronchial tree, which was suctioned out with normal saline wash. The procedure was well tolerated by the patient without any difficulty. Postoperative findings will be discussed with the patient once the patient recovers the effects of acute sedation. RUDI STAUFFER MD CM:PROCNOTE:PROCEDURE NOTE 1013 1200 RUDI GONSALEZ MD
--- NOTE | ~2018-02-01 | PR ---
[place], [place] PROGRESS NOTE NAME[id number] UNIT #: [id number] ROOM: 525 DOCTOR: RUDI LARSEN MD BIRTHDATE: [birth year] DOS: 02/05/2018 The patient was independently seen and examined, yzvp-[id number]-[id number] encounter, history was confirmed. Physical examination performed. Labs were reviewed. Note done by the medical anthropology director was approved as well. The assessment and management of the patient today's note personally completed. SUBJECTIVE: The patient has been noted about the same as of yesterday. Still noted symptoms of coughing and wheezing at times. Symptoms of chest pain, shortness of breath noted with exertion. Continued on corticosteroids, bronchodilators and other medications as previously without any changes. OBJECTIVE: VITAL SIGNS: For the patient which are recorded shows the temperature noted normal, respiratory rate 20, heart rate 70, blood pressure 134/77. Pulse ox saturation on room air 95% saturation. HEENT: Head was atraumatic. Eyes nonicterus. NECK: Supple. CARDIOVASCULAR: S1, S2 is audible. LUNGS: The patient was noted with moderate expiratory wheezing remains unchanged from yesterday. ABDOMEN: Soft, nontender. Bowel sounds are present. EXTREMITIES: Without any acute edema. IMPRESSION: The patient with ongoing acute exacerbation of chronic obstructive pulmonary disease, acute bronchitis remains persistent, small area of centrilobular nodules with currently noted in the left lung with resolution previously noted, pulmonary nodular opacity and tree-in-bud appearance since 09/2017 CT scan comparison. PLAN OF MANAGEMENT: Continue current antibiotics, bronchodilators, and oxygen supplementation. No changes in the steroids. Continue nicotine replacement patches and other therapies. The patient was getting intravenous vancomycin. The patient is on IV Zosyn that will be discontinued. The Levaquin will be also discontinued. The patient will be switched to the oral Zithromax antibiotics as needed since there was no evidence of pneumonia. [place], [place] PROGRESS NOTE NAME: GABRIELA GARNER UNIT #: [id number] ROOM: 525 DOCTOR: RUDI LARSEN MD BIRTHDATE: [birth year] RUDI STAUFFER MD CM:PNTRANS 1243 1747 RUDI GONSALEZ MD 02/19/18 0907 interface
--- NOTE | ~2018-02-01 | PR ---
[place], [place] PROGRESS NOTE [id number] UNIT #: [id number] ROOM: 525 DOCTOR: RUDI LARSEN MD BIRTHDATE: [birth year] DOS: 02/06/2018 PULMONARY PROGRESS NOTE SUBJECTIVE: The patient was independently seen and examined in [id number] encounter. History was confirmed. Physical examination performed. Labs reviewed. Assessment and management personally completed. Note done by the hospital medical assistant was approved. The patient was noted comfortable at this time, resting on the bed this morning. Shortness of breath and wheezing were noted partially decreased. There were no symptoms of chest pain or hemoptysis. Coughing has been noted mild to moderate nonproductive. OBJECTIVE: VITAL SIGNS: For the patient which were recorded shows a normal temperature, respiratory rate 19, heart rate 85, blood pressure 168/90. Pulse ox saturation on room air was 97% saturation. HEENT: Examination shows head was atraumatic. Eyes nonicterus. NECK: Supple. CARDIOVASCULAR SYSTEM: S1, S2 audible. LUNGS: Moderate expiratory wheezing, no crackles. ABDOMEN: Soft, nontender. Bowel sounds present. EXTREMITIES: No edema. LABORATORY DATA: CBC today: WBC count 11.4. IMPRESSION: The patient with very slow resolution of acute exacerbation of chronic obstructive pulmonary disease with acute bronchitis at this time and small tree-in-bud appearance to remain in the left lower lobe with resolution previously noted, diffuse abnormality in the lungs. PLAN OF MANAGEMENT: Continuation of the current plan of management without changes in steroids, bronchodilators, oxygen supplementation and expected monitoring. [place], [place] PROGRESS NOTE NAME: [facility]: [id number] UNIT #: [id number] ROOM: 525 DOCTOR: RUDI LARSEN MD BIRTHDATE: [birth year] RUDI STAUFFER MD CM:PNTRANS [id number] RUDI GONSALEZ MD 02/07/18 0138 interface
--- NOTE | ~2018-02-01 | PR ---
[place], [place] PROGRESS NOTE NAME: GABRIELA GARNER [facility] #: [id number] UNIT #: [id number] ROOM: 525 DOCTOR: XIOMY GONSALEZ MD,RUDI BIRTHDATE: [birth year] DOS: 02/08/2018 SUBJECTIVE: The patient was noted about the same as yesterday. Continue wheezing, which was present at rest. The shortness of breath occurs with exertion with nonproductive cough. Denies symptoms of chest pain or hemoptysis. OBJECTIVE: VITAL SIGNS: For the patient which are recorded shows a temperature normal, respiratory rate 20, heart rate 77, blood pressure 180/90, 129/93 earlier noted. Pulse oxygen saturation of the patient noted over 94% saturation. HEENT: Examination shows head was atraumatic. Eyes nonicterus. NECK: Supple. CARDIOVASCULAR: S1, S2 is audible. LUNGS: Diffuse persistent moderate severe wheezing. There were no crackles. ABDOMEN: Soft, nontender. EXTREMITIES: Without acute edema. IMPRESSION: The patient with persistent acute exacerbation of chronic obstructive pulmonary disease with wheezing, nonproductive cough, remains unchanged for the past 4 days. PLAN OF THERAPY: Bronchoscopy done in the morning. Continue in the meantime, other supportive therapy, plan of management care and treatment plan. Usual care. RUDI STAUFFER MD CM:PNTRANS [id number] RUDI GONSALEZ MD 02/08/18 1404 interface
--- NOTE | ~2018-02-01 | PR ---
[place], [place] PROGRESS NOTE NAME: GABRIELA GARNER [facility] #: [id number] UNIT #: [id number] ROOM: 525 DOCTOR: XIOMY GONSALEZ MD,RUDI BIRTHDATE: [birth year] DOS: 02/04/2018 SUBJECTIVE: The patient was independently seen and examined, [id number] encounter, history confirmed. Physical examination performed. All the labs were reviewed. The note done by the medical billing coordinator was approved as well. The patient was still noted significant symptoms of coughing with chest congestion at the present time. The cough has been noted mostly nonproductive. Denies symptoms of fever or chills. There were no symptoms of chest pain: Chest tightness were reported. Denies symptoms of pain or edema of the lower extremity. Denies symptoms of nausea or vomiting. Remaining systems reviewed. They were noted all negative. OBJECTIVE: VITAL SIGNS: For the patient, which has been recorded shows a normal temperature, respiratory rate 18, heart rate of 16, blood pressure of 154/75 this morning. Intake for patient as 2245 mL was 1600 mL. Pulse ox saturation on 2 liters 95% saturation. HEENT: Head was atraumatic. Eyes nonicterus. NECK: Supple. CARDIOVASCULAR: S1, S2 is audible. LUNGS: The patient noted moderate wheezing noted. There were no crackles. The wheezing noted partially decreased from previous examinations. ABDOMEN: Soft, nontender. EXTREMITIES: No acute edema. MUSCULOSKELETAL: Without acute deformity. SKIN: No lesions or rashes. CENTRAL NERVOUS SYSTEM: Intact. LABORATORY DATA: BMP today, glucose 143, normal BUN and creatinine. CBC this morning, normal hemoglobin 11.9, WBC count and platelet count normal, 97% segmented neutrophils. The CT scan of the chest that was done without contrast yesterday as ordered personally reviewed, shows marked improvement centrilobular nodules, which are noted in the lungs, decreased. He previously in small area of tree-in-bud appearance was noted at this time in the left lower lobe. The remaining CT scan of the chest was noted with finding of paraseptal emphysema for this patient, centrilobular emphysema combination. Small area of scarring was also noted in the lower lungs. IMPRESSION: 1. The patient with resolving tree-in-bud appearance passed treatment consistent with acute bronchiolitis, which has been improved at this time. 2. Ongoing acute exacerbation of chronic obstructive pulmonary disease and acute chronic nicotine dependence. PLAN OF MANAGEMENT: Continuation of the patient's current therapy, plan of management at this time without any changes in treatment. Continue corticosteroids, bronchodilators, and expected management. No major change in treatment will be necessary. No change in dose of steroids will be required. Continue abstinence from tobacco cessation. [place], [place] PROGRESS NOTE NAME: GABRIELA GARNER [facility] UNIT #: [id number] ROOM: [facility] DOCTOR: RUDI LARSEN MD BIRTHDATE: [birth year] RUDI STAUFFER MD CM:MAGDALENA [id number] RUDI GONSALEZ MD 02/04/18 182 interface
--- NOTE | ~2018-02-01 | PR ---
[place], [place] PROGRESS NOTE NAME: GABRIELA GARNER [facility] #: [id number] UNIT #: [id number] ROOM: 525 DOCTOR: RUDI LARSEN MD BIRTHDATE: [birth year] DOS: 02/07/2018 SUBJECTIVE: The patient noted comfortable at this time, resting in the bed at this time without any changes in the respiratory symptom. Still noted cough. The patient remains moderate to severe at times. The patient nonproductive with wheezing were noted unchanged. Shortness of breath with exertion, continued on corticosteroids 40 mg q.8. hours, bronchodilators, Mucinex as well as the flutter valve and all other treatments. OBJECTIVE: VITAL SIGNS: For the patient, which have been recorded showed the temperature noted as normal. The respiratory rate 20, heart rate 78, blood pressure 186/82 this afternoon. Pulse oxygen saturation of the patient noted on room air as 91% saturation. HEENT: Head was atraumatic. Eyes nonicterus. NECK: Supple. CARDIOVASCULAR: S1, S2 is audible. LUNGS: Noted with persistent diffuse expiratory wheezing without any crackles. ABDOMEN: Soft, nontender. Bowel sounds present. EXTREMITIES: No acute change. LABORATORY DATA: The culture of the blood from the 7th showed no bacterial growth. BMP this morning, normal BUN and creatinine, glucose 233. IMPRESSION: Persistent ongoing acute exacerbation of chronic obstructive pulmonary disease, acute tracheobronchitis with nonproductive cough and wheezing, maximum medical therapy. No changes the patient noted in the past few days. PLAN OF MANAGEMENT: The patient has been considered for therapeutic bronchoscopy, again nonresolution of the COPD exacerbation. Continue other supportive therapy, plan of management, current plan of treatment. Usual treatment and therapies. [place], [place] PROGRESS NOTE NAME: GABRIELA GARNER UNIT #: [id number] ROOM: 525 DOCTOR: RUDI LARSEN MD BIRTHDATE: [birth year] RUDI STAUFFER MD CM:PNTRANS [phone] RUDI GONSALEZ MD 02/08/18 0156 interface
--- NOTE | ~2018-02-01 | CON ---
[place], [place] REPORT OF CONSULTATION NAME: GABRIELA GARNER [facility] #: [id number] UNIT #: [id number] ROOM: 525 DOCTOR: LASHANDA WILSON DO BIRTHDATE: [birth year] DOS: REQUESTING PHYSICIAN: Hospitalist service. REASON FOR CONSULTATION: Acute exacerbation of COPD. HISTORY OF PRESENT ILLNESS: The patient is a 57-year-old female who presented to the ED on 02/01/2018 initially due to abdominal pain. The patient states that she felt as if her abdominal pain was consistent with another episode of gastritis, which she has had in the past. She states that she has been using Berenice-[place] tablets at home without relief of her symptoms. She localizes the pain to her upper abdomen and reports that in the ED, she was administered a GI cocktail with some transient relief in her symptoms. In addition, the patient also complained of experiencing progressively worsening shortness of breath, dyspnea on exertion, wheezing as well as a dry cough for the past week. A CT scan of the abdomen and pelvis with contrast obtained in the ED showed no evidence for an acute process. A chest x-ray obtained in the ED showed findings suggestive of a subtle diffuse airspace process on top of chronic lung disease, but no gross finding for a consolidative pneumonia. The patient was diagnosed with an acute exacerbation of COPD. She was administered IV Solu-Medrol as well as a DuoNeb treatment. She was also administered IV Levaquin and she was subsequently admitted to the general medical floor with telemetry monitoring. The Pulmonary Medicine Service was consulted for further management of the patient's suspected acute exacerbation of COPD. PAST MEDICAL HISTORY: List includes chronic back pain, chronic respiratory failure on 3 liters supplemental oxygen at night, COPD, depression, hepatic steatosis, generalized anxiety disorder, history of spinal compression fracture, history of migraine headaches, history of rib fracture, history of small-bowel obstruction, history of cervical cancer with cone biopsy followed by a subsequent total abdominal hysterectomy, hypertension, vitamin D deficiency, allergic rhinitis. PAST SURGICAL HISTORY: List includes history of back surgery, history of a cone biopsy, history of an appendectomy, history of bilateral cataract extractions, history of total hysterectomy, history of shoulder surgery to the right shoulder x 2, history of bronchoscopy. SOCIAL HISTORY: The patient is a current smoker and she has been smoking a pack a day for over 40 years. She denies use of alcohol. Previously, she was with use of marijuana. FAMILY HISTORY: The patient's father at age 74 from respiratory failure secondary to COPD. The patient's mother at age 65 from a cardiac etiology and her medical history included congestive heart failure and coronary artery disease. ALLERGIES: THESE INCLUDE ALLERGIES TO MORPHINE, TO NAPROXEN, TO DAYPRO. CURRENT MEDICATIONS: These include guaifenesin 1200 mg every 12 hours, Levaquin [place], [place] REPORT OF CONSULTATION NAME: GABRIELA GARNER UNIT #: [id number] ROOM: [facility] DOCTOR: LASHANDA WILSON DO BIRTHDATE: [birth year] IV 500 mg daily, Nicotrol inhaler 4 mg every 1 hour as needed for the urge to smoke, potassium phosphate 500 mg 3 times a day with meals, cholecalciferol 5000 international units daily, escitalopram 20 mg daily, ferrous sulfate 325 mg daily, pantoprazole 40 mg daily, imipramine 25 mg daily, calcium carbonate with vitamin D3 500 mg + 200 IU twice a day, folic acid 1 mg daily, loratadine 10 mg daily, tizanidine 4 mg 3 times a day, IV Zosyn 3.375 mg every 6 hours, Lovenox subcutaneously 40 mg daily, prazosin 2 mg before bed, gabapentin 600 mg 3 times a day, BuSpar 15 mg 3 times a day, mirtazapine 30 mg before bed, budesonide 0.5 mg nebulizer treatments every 12 hours, albuterol nebulizer treatments every 6 hours, Hutchinson 7.5/325 every 4 hours as needed for pain, ibuprofen 800 mg 3 times a day as needed for arthritis, IV vancomycin 1.25 grams every 12 hours. REVIEW OF SYSTEMS: GENERAL: Admits to chills as well as night sweats. HEENT: Denies changes to vision, hearing, eye pain, ear pain, dysphagia. CARDIOVASCULAR: Denies chest pain, palpitations, diaphoresis. RESPIRATORY: Admits to shortness of breath, dyspnea on exertion, coughing and wheezing. Denies production of sputum. ABDOMEN: Denies nausea, vomiting, diarrhea, constipation, melena or hematochezia. Admits to upper abdominal pain. GENITOURINARY: Denies dysuria, hematuria, increased urinary frequency or urgency. NEUROLOGICAL: Denies lightheadedness. Admits to dizziness. PSYCHOLOGICAL: Denies anxiety, depression or substance abuse currently. ENDOCRINE: Admits to intolerance to cold and heat. SKIN: Denies any new rashes, ulcers, or lesions. PHYSICAL EXAMINATION: VITAL SIGNS: Show temperature at 98.0 degrees Fahrenheit, heart rate 80, respiratory rate at 18, blood pressure 131/61, pulse oximetry 95% on room air. GENERAL APPEARANCE: The patient was awake, alert, responsive, cooperative and in no acute distress. HEENT: Head was normocephalic and atraumatic. No lesions or ulcerations noted to the eyes. NECK: Trachea appears midline. HEART: Regular rate and rhythm were noted. LUNGS: Positive S1, S2 sounds were heard. No murmurs, rubs or gallops were appreciated. The bilateral lower extremities were without pitting edema. PULMONARY: The patient was with diffuse wheezing on examination. No rhonchi or rales were heard. ABDOMEN: Soft and nontender to palpation. Bowel sounds were present. The abdomen was nondistended. EXTREMITIES: The bilateral lower extremities were without edema. No clubbing, cyanosis or erythema was noted. NEUROLOGIC: The patient was grossly without any focal neurologic deficits. Cranial nerves 2-12 were grossly intact. PSYCHOLOGICAL: The patient was with a normal mood and affect. She was a fair historian. SKIN: Warm and dry without any induration or erythema. [place], [place] REPORT OF CONSULTATION NAME: GABRIELA GARNER UNIT #: [id number] ROOM: [facility] DOCTOR: LASHANDA WILSON DO BIRTHDATE: [birth year] LABORATORY DATA: Most recent CBC from yesterday 02/02/2018 showed white count at 6.8, hemoglobin 12.5, hematocrit 38.2, platelets 451. Most recent chemistries from yesterday 02/02/2018 shows sodium at 142, potassium 3.1, chloride 107, bicarbonate 29, BUN 9, creatinine 0.84, glucose 186. Hemoglobin A1c 5.7, calcium 8.9, phosphorus 1.7, magnesium 2.2. Liver panel appears unremarkable. Vitamin B12 is 375, vitamin D 29.6, folate 14.68, TSH 0.124. In terms of microbiology, blood cultures from admission are without growth of bacteria. Sputum culture has been ordered. IMAGING STUDIES: Chest x-ray obtained on 02/01/2018 showed findings suggestive of subtle diffuse airspace process superimposed on chronic lung disease, but without a gross consolidative pneumonia. A CT of the abdomen and pelvis with contrast also from 02/01/2018 showed no evidence for acute inflammatory process, as well a 2.3 cm exophytic lesion of the left kidney was also demonstrated and unchanged from previous CT scan from 2016. A chest CT without contrast obtained today showed combined pulmonary fibrosis and emphysema as well as a small area of left lower lobe pneumonia. IMPRESSION: 1. Left lower lobe pneumonia. 2. Acute exacerbation of chronic obstructive pulmonary disease. 3. Chronic respiratory failure with hypoxia on supplemental oxygen therapy. 4. Thrombocytosis. 5. Lymphopenia. 6. Hypokalemia. 7. Hyperglycemia. 8. Prediabetes. 9. Hypophosphatemia. 10. Hypermagnesemia. 11. Vitamin D deficiency, which is known. 12. Tobacco abuse. 13. History of chronic pain. 14. History of chronic obstructive pulmonary disease. 15. History of anxiety. 16. History of depression. 17. History of hepatic steatosis. 18. History of multiple fractures to the rib, to the spine. 19. History of hypertension. 20. Polypharmacy. PLAN OF MANAGEMENT: The patient is currently on IV Levaquin, IV Zosyn and IV vancomycin, guaifenesin as well as bronchodilator therapy. IV Solu-Medrol was added to the patient's medication regimen. She is also currently receiving nicotine replacement therapy. Blood cultures and sputum cultures are pending. The patient was strongly encouraged to discontinue her use of tobacco. Supplemental oxygen should be titrated to maintain pulse oximetry at 92% or greater. Pulmonary medicine will continue to follow. [place], [place] REPORT OF CONSULTATION NAME: PASCUALGABRIELA L UNIT #: [id number] ROOM: [facility] DOCTOR: LASHANDA WILSON DO BIRTHDATE: [birth year] Lashanda Wilson DO RUDI STAUFFER MD CM:CONSTR:REPORT OF CONSULTATION 1450 02/17/18 0725 interface
--- NOTE | ~2018-02-01 | PR ---
[place], [place] PROGRESS NOTE NAME: GABRIELA GARNER [facility] #: [id number] UNIT #: [id number] ROOM: 525 DOCTOR: XIOMY GONSALEZ MD,RUDI BIRTHDATE: [birth year] DOS: 02/10/2018 PULMONARY PROGRESS NOTE SUBJECTIVE: The patient noted comfortable at this time, responding to the treatment with bronchoscopy. Wheezing has been decreased, but not completely resolved. Shortness of breath was resolving. There were no symptoms of chest pain, fever or chills. OBJECTIVE: VITAL SIGNS: Normal temperature, respiratory rate 18, heart rate 95, blood pressure 155/83, pulse oxygen saturation on room air 94% saturation. HEENT: Head was atraumatic. Eyes nonicterus. NECK: Supple. CARDIOVASCULAR: S1, S2 is audible. LUNGS: The patient was noted with icnx-[id number]-vyyifuii expiratory wheezing, decreased from previous examination. The resolution noted incomplete. There were no crackles. ABDOMEN: Soft, nontender, bowel sounds present. EXTREMITIES: Without any acute edema. IMPRESSION: The patient who has been noted stable at the present time with current medical management, plan of care with partial improvement noted post-bronchoscopy. The culture results of the bronchial washing was noted normal alexandra. Final culture results were pending. Acid fast bacillus smear was pending with final results. PLAN OF MANAGEMENT: The patient could be discharged home. Follow up the cultures as an outpatient including Mycobacterium avium complex of infection cultures as well. Usual care. Supportive therapy, plan of management and care plan of treatment. RUDI STAUFFER MD CM:PNTRANS [phone] RUDI GONSALEZ MD 02/11/18 0040 interface
--- NOTE | ~2018-02-01 | CON ---
[place], [place] REPORT OF CONSULTATION NAME: GABRIELA GARNER [facility] #: [id number] UNIT #: [id number] ROOM: 525 DOCTOR: RUDI LARSEN MD BIRTHDATE: [birth year] DOS: 02/03/2018 PULMONARY CONSULTATION, EVALUATION AND MANAGEMENT CONSULTATION REQUESTED BY: Hospice service. REASON FOR CONSULTATION: For assessment of COPD. The patient independently seen and examined with [id number] encounter, history was confirmed. Physical examination performed. All the labs for today's note was reviewed personally. The assessment personally completed with the recommendation as well. The note done by the medical assistant instructor was approved. HISTORY OF PRESENT ILLNESS: This is a 57-year-old white female with history of COPD with nicotine dependence. The patient has been admitted in this hospital previously as well for similar condition and discharged home. She presented to the hospital as she has been reported symptoms of progressive shortness of breath associated with chest congestion and the cough. The cough has been noted whitish sputum expectoration. The patient has been admitted and treated under the hospitalist service from 12/29/2017 to 01/02/2018 and readmitted to the hospital the very next day because the symptoms are noted worsened. She does have symptoms of chest congestion and not expectorating much of the sputum. REVIEW OF SYSTEMS: The patient's review of systems already completed by the medical assistant instructor, was approved. PAST MEDICAL HISTORY: 1. Known with history of severe COPD. 2. Chronic hypoxic respiratory failure, use of oxygen supplementation 3 liters nasal cannula. 3. History of allergic rhinitis. 4. General anxiety disorder. 5. Nicotine dependence. 6. History of previous tree-in-bud appearance in the lung and bronchoscopy as well. PAST SURGICAL HISTORY: 1. Complete hysterectomy. 2. Lumbar laminectomy. 3. Appendectomy. 4. Therapeutic bronchoscopies. SOCIAL HISTORY: The patient is and lives at home. Denies history of alcohol use, illicit drug use. Tobacco use noted from age of [age] years old, half to a pack of cigarettes per day for the patient, which was just discontinued only short term and resumed smoking again, continued the same amount of cigarettes. She has 2 children. Denies any history of alcohol use, illicit drug use. FAMILY HISTORY: The patient's father at 70 years old, complications of [place], [place] REPORT OF CONSULTATION NAME: AGBRIELA GARNER [facility] #: [id number] UNIT #: [id number] ROOM: 525 DOCTOR: RUDI LARSEN MD BIRTHDATE: [birth year] COPD. Mother at 65 with complication of congestive heart failure. HOME MEDICATIONS: Listed in the medication reconciliation by the nursing staff as use of Breo Ellipta, ProAir HFA inhaler, oxygen supplementation, albuterol sulfate via nebulizer, vitamin C, Wellbutrin, vitamin D, Ensure, Lexapro, ferrous sulfate, folic acid, gabapentin, Vicodin, ibuprofen, Tofranil, loratadine, Remeron, omeprazole, Zofran, potassium chloride, prazosin and tizanidine. DRUG ALLERGIES: 1. DAYPRO. 2. NAPROXEN. 3. MORPHINE. PHYSICAL EXAMINATION: GENERAL: This is a 57-year-old female patient who has been noted currently awake and alert without acute distress. Height of 5 feet 7 inches, weight of 141 pounds, BMI 23. VITAL SIGNS: For the patient noted normal temperature, respiratory rate 18-22, heart rate 80-104, blood pressure 131/61, pulse oxygen saturation noted as 94% saturation at rest on room air. HEENT: Shows head was atraumatic. Eyes nonicterus. NECK: Supple. CARDIOVASCULAR: S1, S2 is audible. LUNGS: The patient noted moderate decreased breath sound, diffuse expiratory wheezing. There were no crackles. ABDOMEN: Soft, nontender. Bowel sounds present. EXTREMITIES: The patient noted without any acute edema. MUSCULOSKELETAL: Without acute deformity. VISIBLE SKIN: No lesions or rashes. CENTRAL NERVOUS SYSTEM: Nonfocal. LABORATORY DATA: Lactic acid on 02/01/2018 was noted normal. CBC that was done yesterday, on admission as a normal CBC except platelet count 451,000. BMP of the patient, glucose 106, BUN and creatinine normal, potassium 3.1. Yesterday on admission, phosphorus 1.7. Vancomycin trough level noted at 12.6. The chest x-ray that was done on 02/01/2018 was noted with findings suggestive of interstitial infiltration noted in the lungs. IMPRESSION: 1. The patient has been known with previous pulmonary nodular opacity as a tree-in-bud opacity in 10/2017. Bronchoscopy done at that time noted negative for acid fast isolation. 2. History of chronic nicotine dependence with ongoing acute exacerbation of chronic obstructive pulmonary disease as well. 3. History of chronic dependence on the nicotine and general anxiety disorder and several other medical condition and comorbid condition noted in the past history component of this consultation. PLAN OF MANAGEMENT: CT scan of the chest will be ordered without contrast for [place], [place] REPORT OF CONSULTATION NAME: GABRIELA GARNER UNIT #: [id number] ROOM: [facility] DOCTOR: XIOMY GONSALEZ MD,RUDI BIRTHDATE: [birth year] further assessment, to assess the patient for resolution of previous ground-glass opacity, the current finding of chest x-ray might be suggestive of that. There was no discrete pneumonic infiltration at least seen on the chest x-ray. Other supportive therapy, plan of management for the patient as well. Usual care, other supportive plan of treatment to be continued. Nicotine replacement patches as well. Continuation of the current dose of Solu-Medrol and bronchodilators. The patient has been getting intravenous Zosyn, Levaquin and vancomycin which will be too broad-spectrum antibiotic. De-escalation of antibiotic will be done after review of CT scan of the chest. Other plan of therapy, management plan to be continued. Nicotine replacement patches have been ordered to overcome the nicotine withdrawal. Supportive care, other therapy, plan of management and care plan. Thanks for allowing me to participate in the care of this patient. RUDI STAUFFER MD CM:CONSTR:REPORT OF CONSULTATION 1253 02/19/18 0905 interface
[~2018-02-01 16:13] MED LIST changes: +AMBIEN10 M1 PO; +BUSPAR15 MG PO; +ENSURE SUPPLEMENT PO; +EPIPEN JR0.15 MG/01 IJ; +FEOSOL325 MG PO; +KLOR-CON 1010 ME1 PO; +POTASSIUM99 M5 PO; +PRILOSEC20 M1 PO; +REMERON30 M1 PO; +TOFRANIL PO; +VITAMIN C250 M2 PO; -VITAMIN D22000 UNIT PO
[2018-02-01 16:14] VITALS: BP 160/84
[2018-02-01 17:18] LABS: BASO # 0.1 10*3/uL (0.0-0.1); BASO % 0.8 % (0.0-1.0); EOS % 0.4 % (1.0-4.0); HEMATOCRIT 42.5 % (37.0-47.0); LYMPH # 2.5 10*3/uL (1.3-4.4); LYMPH % 35.4 % (27.0-41.0); MEAN CELL VOLUME 93.2 fl (81.0-99.0); MEAN CORPUSCULAR HGB 30.7 pg (27.0-31.0); MEAN CORPUSCULAR HGB CONC 32.9 g/dl (33.0-37.0); MEAN PLATELET VOLUME 9.4 fl (9.6-12.3); MONO # 0.6 10*3/uL (0.1-1.0); MONO % 8.3 % (3.0-9.0); NEUT # 3.9 10*3/uL (2.3-7.9); PLATELET COUNT AUTOMATED 461 10*3/uL (130-400); RED BLOOD COUNT 4.56 10*6/uL (4.10-5.10); RED CELL DISTRI WIDTH 13.7 % (0-14.5); WHITE BLOOD COUNT 7.1 10*3/uL (4.8-10.8)
[2018-02-01 17:27] LABS: ACT PARTIAL THROMBO TIME 23.9 SECONDS (20.8-31.5)
[2018-02-01 17:37] LABS: ALBUMIN 3.3 gm/dl (3.1-4.5); ALKALINE PHOSPHATASE 95 U/L (45-117); BUN 4 mg/dl (7-24); CHLORIDE 105 mmol/L (98-107); CREATININE 0.73 mg/dL (0.55-1.02); LIPASE 85 U/L (73-393); POTASSIUM 3.5 mmol/L (3.5-5.1); SGOT/AST 14 IU/L (3-35); SGPT/ALT 15 U/L (12-78); SODIUM 144 mmol/L (136-145); TOTAL PROTEIN 7.1 gm/dL (6.4-8.2)
[2018-02-01 17:39] LABS: BILIRUBIN NEGATIVE (NEGATIVE); BLOOD NEGATIVE (NEGATIVE); CLARITY CLEAR (CLEAR); COLOR YELLOW (YELLOW); GLUCOSE NEGATIVE (NEGATIVE); KETONE 1+ (NEGATIVE); LEUKO ESTERASE NEGATIVE (NEGATIVE); NITRITE NEGATIVE (NEGATIVE); PH >= 9.0 (5.0-9.0)
[2018-02-01 17:56] LABS: BACTERIA 1+; EPITHELIAL CELLS TNTC
[2018-02-01 21:20] VITALS: BP 132/65
[2018-02-01 21:45] VITALS: BP 151/74
[2018-02-01 22:00] VITALS: BP 151/74
[2018-02-02 06:24] LABS: BASO % 0.1 % (0.0-1.0); HEMATOCRIT 38.2 % (37.0-47.0); HEMOGLOBIN 12.5 g/dl (12.0-16.0); LYMPH # 0.8 10*3/uL (1.3-4.4); LYMPH % 11.8 % (27.0-41.0); MEAN CELL VOLUME 92.7 fl (81.0-99.0); MEAN CORPUSCULAR HGB 30.3 pg (27.0-31.0); MEAN CORPUSCULAR HGB CONC 32.7 g/dl (33.0-37.0); MEAN PLATELET VOLUME 9.7 fl (9.6-12.3); MONO # 0.3 10*3/uL (0.1-1.0); MONO % 4.9 % (3.0-9.0); NEUT # 5.6 10*3/uL (2.3-7.9); NEUT % 83.1 % (47.0-73.0); PLATELET COUNT AUTOMATED 451 10*3/uL (130-400); RED BLOOD COUNT 4.12 10*6/uL (4.10-5.10); RED CELL DISTRI WIDTH 13.6 % (0-14.5); WHITE BLOOD COUNT 6.8 10*3/uL (4.8-10.8)
[2018-02-02 06:30] LABS: CHLORIDE 107 mmol/L (98-107); CHOLESTEROL 160 mg/dL (<200); CREATININE 0.84 mg/dL (0.55-1.02); PHOSPHOROUS 1.7 mg/dL (2.5-4.9); POTASSIUM 3.1 mmol/L (3.5-5.1); SODIUM 142 mmol/L (136-145)
[2018-02-02 06:39] LABS: BUN 9 mg/dl (7-24); HDL CHOLESTEROL 46 mg/dl (40-60); LDL CHOLESTEROL 101 mg/dL (9-159); THYROID STIM HORMONE (HS) 0.124 uIU/ml (0.358-4.75); TRIGLYCERIDES 67 mg/dl (<150); VLDL CHOLESTEROL 13 mg/dL (6-40)
[2018-02-02 07:27] LABS: VITAMIN D, 25-HYDROXY 29.6 ng/mL (30-100)
[2018-02-02 08:00] VITALS: BP 100/56
[2018-02-02 12:00] VITALS: BP 106/60
[2018-02-02 16:00] VITALS: BP 131/61
[2018-02-02 20:00] VITALS: BP 119/59
[2018-02-03] VITALS: BP 155/66; BP 58/66
[2018-02-03 08:00] VITALS: BP 131/61; BP 132/64
[2018-02-03 12:00] VITALS: BP 142/59
[2018-02-03 16:00] VITALS: BP 136/76
[2018-02-03 20:00] VITALS: BP 149/74
[2018-02-04] VITALS: BP 160/68
[2018-02-04 06:20] LABS: HEMATOCRIT 36.5 % (37.0-47.0); HEMOGLOBIN 11.9 g/dl (12.0-16.0); MEAN CELL VOLUME 95.3 fl (81.0-99.0); MEAN CORPUSCULAR HGB 31.1 pg (27.0-31.0); MEAN CORPUSCULAR HGB CONC 32.6 g/dl (33.0-37.0); MEAN PLATELET VOLUME 9.4 fl (9.6-12.3); PLATELET COUNT AUTOMATED 372 10*3/uL (130-400); RED BLOOD COUNT 3.83 10*6/uL (4.10-5.10); RED CELL DISTRI WIDTH 13.6 % (0-14.5); WHITE BLOOD COUNT 6.6 10*3/uL (4.8-10.8)
[2018-02-04 06:41] LABS: BUN 12 mg/dl (7-24); CHLORIDE 109 mmol/L (98-107); CREATININE 0.97 mg/dL (0.55-1.02); POTASSIUM 4.3 mmol/L (3.5-5.1); SODIUM 142 mmol/L (136-145)
[2018-02-04 07:33] LABS: TOTAL CELLS COUNTED 100 #CELLS
[2018-02-04 07:34] LABS: PLATELET SUFFICIENCY NORMAL (NORMAL)
[2018-02-04 08:00] VITALS: BP 154/75
[2018-02-04 12:00] VITALS: BP 128/92
[2018-02-04 16:00] VITALS: BP 141/77
[2018-02-04 20:00] VITALS: BP 159/71
[2018-02-05] VITALS: BP 182/77
[2018-02-05 06:23] LABS: BASO % 0.1 % (0.0-1.0); HEMATOCRIT 34.8 % (37.0-47.0); HEMOGLOBIN 11.5 g/dl (12.0-16.0); LYMPH % 8.6 % (27.0-41.0); MEAN CELL VOLUME 95.1 fl (81.0-99.0); MEAN CORPUSCULAR HGB 31.4 pg (27.0-31.0); MEAN PLATELET VOLUME 9.5 fl (9.6-12.3); MONO # 0.5 10*3/uL (0.1-1.0); NEUT # 10.1 10*3/uL (2.3-7.9); NEUT % 86.6 % (47.0-73.0); PLATELET COUNT AUTOMATED 374 10*3/uL (130-400); RED BLOOD COUNT 3.66 10*6/uL (4.10-5.10); RED CELL DISTRI WIDTH 13.8 % (0-14.5); WHITE BLOOD COUNT 11.6 10*3/uL (4.8-10.8)
[2018-02-05 06:35] LABS: BUN 17 mg/dl (7-24); CHLORIDE 108 mmol/L (98-107); POTASSIUM 4.5 mmol/L (3.5-5.1); SODIUM 143 mmol/L (136-145)
[2018-02-05 08:00] VITALS: BP 157/78
[2018-02-05 12:00] VITALS: BP 134/77
[2018-02-05 16:00] VITALS: BP 166/87
[2018-02-05 20:00] VITALS: BP 167/85
[2018-02-05 23:46] VITALS: BP 184/94
[2018-02-06 08:00] VITALS: BP 168/90
[2018-02-06 09:20] LABS: BASO % 0.2 % (0.0-1.0); EOS % 0.2 % (1.0-4.0); HEMATOCRIT 40.6 % (37.0-47.0); HEMOGLOBIN 12.7 g/dl (12.0-16.0); LYMPH % 8.4 % (27.0-41.0); MEAN CELL VOLUME 97.1 fl (81.0-99.0); MEAN CORPUSCULAR HGB 30.4 pg (27.0-31.0); MEAN CORPUSCULAR HGB CONC 31.3 g/dl (33.0-37.0); MEAN PLATELET VOLUME 9.9 fl (9.6-12.3); MONO # 0.3 10*3/uL (0.1-1.0); MONO % 2.7 % (3.0-9.0); NEUT # 9.9 10*3/uL (2.3-7.9); NEUT % 87.3 % (47.0-73.0); PLATELET COUNT AUTOMATED 347 10*3/uL (130-400); RED BLOOD COUNT 4.18 10*6/uL (4.10-5.10); RED CELL DISTRI WIDTH 13.9 % (0-14.5); WHITE BLOOD COUNT 11.4 10*3/uL (4.8-10.8)
[2018-02-06 09:46] LABS: BUN 18 mg/dl (7-24); CHLORIDE 103 mmol/L (98-107); SODIUM 138 mmol/L (136-145)
[2018-02-06 09:48] LABS: POTASSIUM 5.2 mmol/L (3.5-5.1)
[2018-02-06 12:00] VITALS: BP 135/69
[2018-02-06 16:00] VITALS: BP 162/80; BP 178/89
[2018-02-06 20:00] VITALS: BP 174/82
[2018-02-07] VITALS: BP 159/80
[2018-02-07 07:23] LABS: BUN 24 mg/dl (7-24); CHLORIDE 100 mmol/L (98-107); CREATININE 0.83 mg/dL (0.55-1.02); PHOSPHOROUS 3.8 mg/dL (2.5-4.9); SODIUM 141 mmol/L (136-145)
[2018-02-07 07:37] LABS: POTASSIUM 4.2 mmol/L (3.5-5.1)
[2018-02-07 08:00] VITALS: BP 186/82
[2018-02-07 12:00] VITALS: BP 158/88
[2018-02-07 16:00] VITALS: BP 172/84
[2018-02-07 20:00] VITALS: BP 159/79
[2018-02-08] VITALS: BP 179/83
[2018-02-08 08:00] VITALS: BP 180/90
[2018-02-08 12:00] VITALS: BP 158/84
[2018-02-08 16:00] VITALS: BP 157/74
[2018-02-08 20:00] VITALS: BP 136/76
[2018-02-09] VITALS (9 sets, daily range): BP systolic 142–168; BP diastolic 70–92
[2018-02-09 06:10] LABS: HEMATOCRIT 40.9 % (37.0-47.0); HEMOGLOBIN 13.2 g/dl (12.0-16.0); MEAN CELL VOLUME 93.4 fl (81.0-99.0); MEAN CORPUSCULAR HGB 30.1 pg (27.0-31.0); MEAN CORPUSCULAR HGB CONC 32.3 g/dl (33.0-37.0); MEAN PLATELET VOLUME 9.5 fl (9.6-12.3); PLATELET COUNT AUTOMATED 440 10*3/uL (130-400); RED BLOOD COUNT 4.38 10*6/uL (4.10-5.10); RED CELL DISTRI WIDTH 13.3 % (0-14.5); WHITE BLOOD COUNT 14.4 10*3/uL (4.8-10.8)
[2018-02-09 06:36] LABS: BUN 31 mg/dl (7-24); CHLORIDE 100 mmol/L (98-107); CREATININE 0.88 mg/dL (0.55-1.02); POTASSIUM 4.8 mmol/L (3.5-5.1); SODIUM 139 mmol/L (136-145)
[2018-02-09 06:50] LABS: PLATELET SUFFICIENCY HIGH (NORMAL); TOTAL CELLS COUNTED 100 #CELLS
[2018-02-10 00:38] VITALS: BP 150/88
[2018-02-10 08:00] VITALS: BP 170/89
[2018-02-10] MEDS ORDERED: PREDNISONE10 MG PO (11:50)
[2018-02-10] MEDS ORDERED: AVPAK AZITHROM250 M1 PO (11:50)
[2018-02-10 12:00] VITALS: BP 155/83
[2018-02-10 15:38] LABS: ACID FAST SPEC PROCESSING Concentration (.)
[2018-03-26 11:06] LABS: ACID FAST CULTURE Negative (.)
== END 2018-02-10 13:13 | disposition home or self-care (01) | DRG 194 ==
LOC: ED 16:13 → 5E 20:57 → EDHOLD 20:57 → 5E 21:35
PROVIDERS: Internal Medicine; Internal Medicine Critical Care Medicine; Physician Assistant
PROC: 0BC98ZZ Extirpation of Matter from Lingula Bronchus, Via Natural or Artificial Opening Endoscopic (ICD-10-PCS; principal; 2018-02-09)
PROC: 0BC48ZZ Extirpation of Matter from Right Upper Lobe Bronchus, Via Natural or Artificial Opening Endoscopic (ICD-10-PCS; 2018-02-09)
PROC: 0BC88ZZ Extirpation of Matter from Left Upper Lobe Bronchus, Via Natural or Artificial Opening Endoscopic (ICD-10-PCS; 2018-02-09)
PROC: 0BC58ZZ Extirpation of Matter from Right Middle Lobe Bronchus, Via Natural or Artificial Opening Endoscopic (ICD-10-PCS; 2018-02-09)
PROC: 0BC38ZZ Extirpation of Matter from Right Main Bronchus, Via Natural or Artificial Opening Endoscopic (ICD-10-PCS; 2018-02-09)
PROC: 0BC78ZZ Extirpation of Matter from Left Main Bronchus, Via Natural or Artificial Opening Endoscopic (ICD-10-PCS; 2018-02-09)
PROC: 0BC68ZZ Extirpation of Matter from Right Lower Lobe Bronchus, Via Natural or Artificial Opening Endoscopic (ICD-10-PCS; 2018-02-09)
PROC: 0BCB8ZZ Extirpation of Matter from Left Lower Lobe Bronchus, Via Natural or Artificial Opening Endoscopic (ICD-10-PCS; 2018-02-09)
PROC: 0BC18ZZ Extirpation of Matter from Trachea, Via Natural or Artificial Opening Endoscopic (ICD-10-PCS; 2018-02-09)
DX: J18.1 Lobar pneumonia, unspecified organism (principal); J44.0 Chronic obstructive pulmonary disease with (acute) lower respiratory infection; J96.11 Chronic respiratory failure with hypoxia; E44.0 Moderate protein-calorie malnutrition; F33.9 Major depressive disorder, recurrent, unspecified; J44.1 Chronic obstructive pulmonary disease with (acute) exacerbation; Z68.22 Body mass index [BMI] 22.0-22.9, adult; E83.41 Hypermagnesemia; J20.9 Acute bronchitis, unspecified; F41.1 Generalized anxiety disorder; F17.210 Nicotine dependence, cigarettes, uncomplicated; G89.29 Other chronic pain; M54.9 Dorsalgia, unspecified; G43.909 Migraine, unspecified, not intractable, without status migrainosus; I10 Essential (primary) hypertension; E87.6 Hypokalemia; K76.0 Fatty (change of) liver, not elsewhere classified; T38.0X5A Adverse effect of glucocorticoids and synthetic analogues, initial encounter; D72.829 Elevated white blood cell count, unspecified; D47.3 Essential (hemorrhagic) thrombocythemia; E87.5 Hyperkalemia; R73.9 Hyperglycemia, unspecified; D72.810 Lymphocytopenia; D64.9 Anemia, unspecified; E87.8 Other disorders of electrolyte and fluid balance, not elsewhere classified; R73.03 Prediabetes; E83.39 Other disorders of phosphorus metabolism; Z85.41 Personal history of malignant neoplasm of cervix uteri; Z71.6 Tobacco abuse counseling; Y92.89 Other specified places as the place of occurrence of the external cause; S92.901D Unspecified fracture of right foot, subsequent encounter for fracture with routine healing; S92.344D Nondisplaced fracture of fourth metatarsal bone, right foot, subsequent encounter for fracture with routine healing; Z99.81 Dependence on supplemental oxygen; Z88.6 Allergy status to analgesic agent; Z88.8 Allergy status to other drugs, medicaments and biological substances; Z79.899 Other long term (current) drug therapy; Z90.49 Acquired absence of other specified parts of digestive tract; Z90.710 Acquired absence of both cervix and uterus; Z98.42 Cataract extraction status, left eye; Z98.41 Cataract extraction status, right eye; Z82.49 Family history of ischemic heart disease and other diseases of the circulatory system; Z83.3 Family history of diabetes mellitus; Z82.3 Family history of stroke; Z83.6 Family history of other diseases of the respiratory system

== ENCOUNTER → 2018-02-20 | Outpatient (CLI) | payer OTHER ==
[~2018-02-20] MED LIST changes: +AMBIEN10 M1 JT; +AVPAK AZITHROM250 M1 PO; +FISH OIL 1,0001 EAC1 PO; +LEXAPRO10 MG PO; +LISINOPRIL20 MG PO; +MUCINEX D ER T1 EACH PO; +OMEPRAZOLE D/R20 MG PO; +PRINIVIL10 MG PO; +PROMETHAZINE D118 ML PO; +VISTARIL50 MG PO; +VITAMIN C500 M4 PO; +ZESTRIL20 MG PO
== END | disposition home or self-care (01) ==
LOC: ORTHO 00:48
DX: S92.344D Nondisplaced fracture of fourth metatarsal bone, right foot, subsequent encounter for fracture with routine healing (principal); X58.XXXD Exposure to other specified factors, subsequent encounter

== ENCOUNTER → 2018-02-24 | Outpatient (CLI) | payer OTHER | END | disposition home or self-care (01) | LOC: RAD 11:24 | DX: Z13.820 Encounter for screening for osteoporosis (principal); M81.0 Age-related osteoporosis without current pathological fracture; Z78.0 Asymptomatic menopausal state; Z90.710 Acquired absence of both cervix and uterus ==

== ENCOUNTER 2018-03-05 13:00 | Emergency (ER) | payer OTHER ==
[~2018-03-05] VITALS: Ht 162.5 cm; Wt 63.5 kg
[~2018-03-05 13:00] MED LIST changes: -AMBIEN10 M1 JT; -FISH OIL 1,0001 EAC1 PO; -LEXAPRO10 MG PO; -LISINOPRIL20 MG PO; -MUCINEX D ER T1 EACH PO; -OMEPRAZOLE D/R20 MG PO; -PRINIVIL10 MG PO; -PROMETHAZINE D118 ML PO; -VISTARIL50 MG PO; -VITAMIN C500 M4 PO; -ZESTRIL20 MG PO
[2018-03-05 13:01] VITALS: BP 144/53
[2018-03-05 13:33] LABS: BASO # 0.1 10*3/uL (0.0-0.1); BASO % 0.5 % (0.0-1.0); EOS # 0.1 10*3/uL (0.0-0.4); EOS % 0.9 % (1.0-4.0); HEMATOCRIT 37.6 % (37.0-47.0); HEMOGLOBIN 12.4 g/dl (12.0-16.0); LYMPH # 2.9 10*3/uL (1.3-4.4); LYMPH % 25.9 % (27.0-41.0); MEAN CELL VOLUME 92.4 fl (81.0-99.0); MEAN CORPUSCULAR HGB 30.5 pg (27.0-31.0); MEAN PLATELET VOLUME 9.2 fl (9.6-12.3); MONO # 0.7 10*3/uL (0.1-1.0); MONO % 6.7 % (3.0-9.0); NEUT # 7.2 10*3/uL (2.3-7.9); NEUT % 65.6 % (47.0-73.0); PLATELET COUNT AUTOMATED 445 10*3/uL (130-400); RED BLOOD COUNT 4.07 10*6/uL (4.10-5.10)
[2018-03-05 13:49] LABS: ALBUMIN 3.6 gm/dl (3.1-4.5); ALKALINE PHOSPHATASE 102 U/L (45-117); BUN 13 mg/dl (7-24); CHLORIDE 102 mmol/L (98-107); CREATININE 0.93 mg/dL (0.55-1.02); POTASSIUM 3.6 mmol/L (3.5-5.1); SGOT/AST 27 IU/L (3-35); SGPT/ALT 26 U/L (12-78); SODIUM 140 mmol/L (136-145); TOTAL PROTEIN 7.3 gm/dL (6.4-8.2)
[2018-03-05] MEDS ORDERED: VIBRAMYCIN100 MG PO (15:22)
== END 2018-03-05 15:40 | disposition home or self-care (01) ==
LOC: ED 13:00
PROVIDERS: Emergency Medicine
DX: J44.1 Chronic obstructive pulmonary disease with (acute) exacerbation (principal); M54.9 Dorsalgia, unspecified; G43.909 Migraine, unspecified, not intractable, without status migrainosus; I10 Essential (primary) hypertension; F17.200 Nicotine dependence, unspecified, uncomplicated; Z88.6 Allergy status to analgesic agent; Z88.8 Allergy status to other drugs, medicaments and biological substances; Z79.899 Other long term (current) drug therapy

== ENCOUNTER 2018-03-18 10:21 | Inpatient (IN) | payer OTHER ==
[~2018-03-18] VITALS: Ht 162.5 cm; Wt 64.0 kg
--- NOTE | ~2018-03-18 | CON ---
[place], [place] REPORT OF CONSULTATION NAME: GABRIELA GARNER [facility] #: [id number] UNIT #: [id number] ROOM: 411 DOCTOR: XIOMY GONSALEZ MDRUDI BIRTHDATE: [birth year] DOS: 03/19/2018 PULMONARY CONSULTATION, EVALUATION AND MANAGEMENT CONSULTATION REQUESTED: By the Hospitalist service. REASON FOR CONSULTATION: Assess the patient's for current acute exacerbation of chronic obstructive pulmonary disease. HISTORY OF PRESENT ILLNESS: The patient is a 57-year-old white female who has been noted frequent hospitalization with persistent nicotine dependence with exacerbation of COPD. The patient has been treated in the hospital recently as outpatient and discharged home for further medical management. She has been known with history of chronic hypoxic respiratory failure as well. She continued to smoke cigarettes one pack of cigarettes per day, down from 3 packs of cigarettes per day, presented to the Emergency Room on the date of 03/18/2018 as the patient has been reporting symptoms of having increased shortness of breath ongoing for the past few days. These symptoms are also associated with tightness in the chest and pain which described in the back of the chest and the lower back. The patient was noted symptoms of wheezing as well as nonproductive cough. The symptoms have been noted worsening with current symptom. The pain is described to be sharp at times, worsened with deep inspiratory effort. REVIEW OF SYSTEMS: CONSTITUTIONAL: Fatigue and tiredness noted without any symptoms of fever or chills. EYES: Denies burning, redness, or tenderness. EARS, NOSE, THROAT SYMPTOMS: Denies sore throat, hoarseness, otalgia, postnasal drainage, or epistaxis. CARDIOVASCULAR: Denies anginal pain, edema, or pain in lower extremities. GASTROINTESTINAL: Denies dysphagia, nausea, vomiting, diarrhea, abdominal pain, hematemesis, melena, or hematochezia. SKIN: Denies abnormal lesions or rashes. MUSCULOSKELETAL: No acute joint pain, redness, or tenderness. SKIN: No lesions or rashes reported by the patient. Remaining systems were reviewed. They were noted all negative. PAST MEDICAL HISTORY: 1. End-stage chronic obstructive pulmonary disease and acute chronic hypoxic respiratory failure. 2. Allergic rhinitis. 3. Anxiety disorder. 4. Persistent nicotine dependence. 5. Resolution previous noted tree-in-bud appearance pulmonary nodules with a followup CT scan of the chest. PAST SURGICAL HISTORY: 1. Complete hysterectomy. 2. Lumbar laminectomy. 3. Appendectomy. [place], [place] REPORT OF CONSULTATION NAME[facility] [id number] UNIT #: [id number] ROOM: 411 DOCTOR: RUDI LARSEN MD BIRTHDATE: [birth year] 4. Therapeutic bronchoscopies. SOCIAL HISTORY: The patient is and lives at home. Denies alcohol use or illicit drug use. Tobacco use was noted from age of [age] years old, 2-1/2 pack of cigarettes per day, currently smoking a pack of cigarettes per day. She has 2 children. Denies alcohol use or illicit drug use. FAMILY HISTORY: The patient's father at age of 7070 years old due to complication of COPD. Mother at 65 years old due to complications of congestive heart failure. CURRENT MEDICATIONS: Administered for the patient on this admission was noted as use of: 1. Nicotine replacement patch. 2. Lisinopril. 3. Lexapro. 4. Imipramine. 5. Lovenox for DVT prophylaxis. 6. Flexeril. 7. Omeprazole. 8. Pravastatin. 9. Gabapentin. 10. Remeron. 11. Solu-Medrol 40 mg b.i.d. 12. Pulmicort Respules. 13. Albuterol sulfate. 14. Zithromax. 15. Rocephin. 16. Other p.r.n. medications. DRUG ALLERGIES: 1. FLUOROQUINOLONES. 2. DAYPRO. 3. NAPROXEN. 4. MORPHINE SULPHATE. PHYSICAL EXAMINATION: GENERAL: This is a 57-year-old female currently noted awake and alert without any acute distress. Height of 5 feet 4 inches, weight 141 pounds, BMI 24.2. VITAL SIGNS: Normal temperature since admission, respiratory rate 18-20, heart rate 95-81, blood pressure 121/65-120/64. Pulse oxygen saturation at rest on room air 95% saturation. HEENT: Head was atraumatic. Eyes nonicterus. NECK: Supple. CARDIOVASCULAR: S1, S2 is audible. LUNGS: Noted with diffuse reduction in breath sounds, expiratory wheezing bilaterally. Palpation of muscles of the chest noted localized tenderness in multiple muscles noted. SKIN: There were no abnormal skin rashes. ABDOMEN: Soft, flat, nontender, bowel sounds present. [place], [place] REPORT OF CONSULTATION NAME: GABRIELA GARNER UNIT #: [id number] ROOM: 411 DOCTOR: XIOMY GONSALEZ MD,RUDI BIRTHDATE: [birth year] EXTREMITIES: Without acute edema. MUSCULOSKELETAL: Noted without any acute deformities. CENTRAL NERVOUS SYSTEM: Cranial nerves 2-12 intact. LABORATORY DATA: CBC was noted on this patient done yesterday on admission of 03/18/2018 shows a WBC count of 12.3, hemoglobin and hematocrit normal, 427% platelet, mildly elevated. PT/PTT were normal. CMP of 03/18/2018, BUN normal, creatinine was normal, sodium 135. Influenza A and B, nasal washing antigens were negative. CBC this morning WBC are done 11.7, hemoglobin 11.8, platelet count 413,000, still noted mildly elevated. CMP this morning, normal BUN and creatinine. Sodium was normal. Chest x-ray does not show any acute pulmonary infiltration. IMPRESSION: 1. The patient will be currently admitted to the hospital noted with pain, which she described in the back, thoracic area in the lumbar area, most likely to the previous known compression fracture noted of T6, T7, T8 and T10. Possibility of osteoporosis with resulting compression fracture would be considered. 2. Acute exacerbation of chronic obstructive pulmonary disease noted recurrent with nicotine dependence and acute bronchitis. PLAN OF MANAGEMENT: The patient will be continued on the current dose of steroids, bronchodilators, oxygen supplementation. Assessment needs to be done for the current osteoporosis assessment. Pain management. Usual care, other supportive therapy, plan and management. Recommendation and the counseling about tobacco cessation has been done for the patient again at the bedside. Other supportive therapy, plan of management, care plan for the patient to be done accordingly. Additional treatment changes will be done based on progression of illness. She is strongly consider the patient to obtain the MRI of the spine for further assessment. Previous compression fractures and to rule out any other pathologies. Thanks for allowing me to participate in the care of this patient. RUDI STAUFFER MD CM:CONSTR:REPORT OF CONSULTATION 1503 04/03/18 1009 interface
--- NOTE | ~2018-03-18 | PR ---
[place], [place] PROGRESS NOTE NAME: GABRIELA GARNER UNIT #: [id number] ROOM: 411 DOCTOR: VERENICE LOPEZ DO BIRTHDATE: [birth year] DOS: 03/24/2018 PULMONOLOGY PROGRESS NOTE SUBJECTIVE: The patient was seen and evaluated on a general medical floor. The patient notes to have severe nonproductive cough. The patient is scheduled for a bronchoscopy this morning. The patient notes continued wheezing and shortness of breath with exertion. The patient denies any chest pain, nausea, vomiting, diarrhea, abdominal pain or any urinary cyanosis or edema. OBJECTIVE: VITAL SIGNS: Temperature 98.2, pulse 93, respiratory rate 18, blood pressure 174/84, 100% on nasal cannula 6 liters. GENERAL: Alert and oriented x 3, mild distress. HEENT: Atraumatic, normocephalic. Eyes nonicteric. PERRLA. NECK: Supple. CARDIOVASCULAR: Regular rate and rhythm. No murmurs, rubs, gallops. LUNGS: Diffuse expiratory wheezing bilaterally with mildly diminished breath sounds bilaterally as well. ABDOMEN: Soft, nontender. Bowel sounds present. EXTREMITIES: Without acute edema. NEUROLOGIC: Grossly intact. No neurological deficits. LABORATORY DATA: White blood cell count 13.1, hemoglobin 11.8, hematocrit 36.1, platelet count 401. IMPRESSION: 1. Acute exacerbation of chronic obstructive pulmonary disease with acute bronchitis, not resolving with medical management. 2. Chronic nicotine dependence. PLAN OF MANAGEMENT: The patient has not responded to bronchodilators, steroids and antibiotics and therefore we will proceed with bronchoscopy today to remove any mucus plugging, etc. Changes will be made to steroid dose and antibiotics based on cultures and clinical progression of the patient. Verenice Lopez DO [place], [place] PROGRESS NOTE NAME: GABRIELA GARNER UNIT #: [id number] ROOM: 411 DOCTOR: SHEILA HINKLEVERENICE BIRTHDATE: [birth year] RUDI STAUFFER MD CM:MAGDALENA [id number] VERENICE LOPEZ DO 03/24/18 1435 interface
--- NOTE | ~2018-03-18 | PR ---
[place], [place] PROGRESS NOTE [id number] UNIT #: [id number] ROOM: 411 DOCTOR: RUDI LARSEN MD BIRTHDATE: [birth year] DOS: 03/25/2018 PULMONARY PROGRESS NOTE SUBJECTIVE: The patient was noted comfortable at this time. She was independently seen and examined, yrqh-jd-gwne encounter, history was confirmed. Physical examination performed. Labs reviewed. Assessment and management of the patient today's note personally completed. The note done by the medical management trainer was approved. She had been ambulating, underwent bronchoscopy yesterday with reduction of the respiratory symptoms of coughing, wheezing reported. Denies symptoms of fever or chills, does complain of cough which has been noted for costochondritis treated with the local pain management and other pain medications. PHYSICAL EXAMINATION: VITAL SIGNS: Normal temperature, respiratory rate 20, heart rate 89, blood pressure 154/87. Pulse oxygen saturation of the patient recorded as 95% on room air. HEENT: Head was atraumatic. Eyes: No icterus. NECK: Supple. CARDIOVASCULAR: S1, S2 audible. LUNGS: The patient was noted without any crackles or wheezing. The breaths are noted mildly diminished bilaterally. ABDOMEN: Soft, nontender. Bowel sounds present. EXTREMITIES: Without any acute edema. IMPRESSION: Stable respiratory status was noted at the present time with improving acute exacerbation of chronic obstructive pulmonary disease, resolution of wheezing, ongoing acute tracheobronchitis with cultures showing moderate growth of yeast. PLAN OF TREATMENT: Discharge planning of the patient, tapering prednisone, oral antibiotics, short-term nonsteroidal anti-inflammatory for the medical management for musculoskeletal chest pain. Counseling about tobacco cessation was done. Outpatient follow up to be established post-discharge. [place], [place] PROGRESS NOTE NAME: GABRIELA GARNER UNIT #: [id number] ROOM: 411 DOCTOR: RUDI LARSEN MD BIRTHDATE: [birth year] RUDI STAUFFER MD CM:PNTRANS [id number] RUDI GONSALEZ MD 04/03/18 1010 interface
--- NOTE | ~2018-03-18 | PR ---
[place], [place] PROGRESS NOTE NAME: GABRIELA GARNER UNIT #: [id number] ROOM: 411 DOCTOR: MALIAGIDLARDO VERENICE HINKLE BIRTHDATE: [birth year] DOS: 03/25/2018 PULMONOLOGY PROGRESS NOTE SUBJECTIVE: The patient was seen and evaluated on general medical floor. The patient notes some resolution of her symptoms after her bronchoscopy yesterday. The patient notes that she is sore in her chest and is having some achiness accompanied with her cough. The patient notes continued shortness of breath, especially with exertion, but the patient denies any nausea, vomiting, diarrhea, constipation or urinary symptoms at this time. OBJECTIVE: VITAL SIGNS: Temperature 98.5, pulse 89, respiratory rate 20, blood pressure 154/87. GENERAL: Alert and oriented x 3. No signs of distress. HEENT: Head is atraumatic, normocephalic. Eyes are nonicteric. PERRLA. NECK: Supple. CARDIOVASCULAR: Regular rate and rhythm. No murmurs, rubs or gallops. LUNGS: Improved aeration bilaterally with mildly diminished breath sounds and minimal wheezing. ABDOMEN: Soft, nontender. Bowel sounds present. EXTREMITIES: Without acute edema. NEUROLOGIC: Grossly intact. No neurological deficits. LABORATORY DATA: No new labs drawn this morning. ASSESSMENT: Resolving acute exacerbation of chronic obstructive pulmonary disease that did not respond initially to maximal medical therapy and had to receive bronchoscopy and history of chronic nicotine dependence as well. PLAN OF MANAGEMENT: The patient has improved with bronchoscopy and is stable for discharge from a Pulmonology standpoint with oral steroids and antibiotics. Further modification will be made based on clinical progression of the patient. Verenice Lopez DO [place], [place] PROGRESS NOTE NAME: GABRIELA GARNER UNIT #: [id number] ROOM: 411 DOCTOR: VERENICE LOPEZ DO BIRTHDATE: [birth year] RUDI STAUFFER MD CM:PNTRANS [id number] VERENICE LOPEZ DO 03/25/18 1115 interface
--- NOTE | ~2018-03-18 | PR ---
[place], [place] PROGRESS NOTE NAME: GABRIELA GARNER [facility] #: [id number] UNIT #: [id number] ROOM: 411 DOCTOR: XIOMY GONSALEZ MD,RUDI BIRTHDATE: [birth year] DOS: 03/21/2018 PULMONARY PROGRESS NOTE SUBJECTIVE: The patient was still noted with coughing, which has been noted moderate with wheezing and shortness of breath. She was complaining of pain, which she described in the midsternal area, worsened with coughing, deep inspiratory effort, and palpation. She has not reported abdominal rash at that area. The pain was described to be sharp with inspiratory breaths. The patient denies any symptoms of fever or chills. She denies any edema of the lower extremities. She denies symptoms of nausea, vomiting, diarrhea, abdominal pain, hematemesis, melena, or hematochezia. Overall, reduction in the respiratory symptoms noted since hospitalization, but the resolution still noted incomplete. Remaining systems were completed and noted negative. PHYSICAL EXAMINATION: VITAL SIGNS: Normal temperature, respiratory rate is 20, heart rate is 99, blood pressure is 170/90-150/72, and pulse oxygen saturation on room air is 93% saturation. HEENT: Examination shows head was atraumatic. Eyes nonicterus. NECK: Supple. CARDIOVASCULAR SYSTEM: S1, S2 is audible. LUNGS: Noted moderate expiratory wheezing. No crackles. ABDOMEN: The tenderness noted in the midsternal area of the patient. No abnormal rashes. Abdomen is soft, flat, nontender. Bowel sounds present. EXTREMITIES: Without any acute edema, clubbing, or cyanosis. CENTRAL NERVOUS SYSTEM: Cranial nerves 2-12 intact. MUSCULOSKELETAL: Without acute deformities. SKIN: No lesions or rashes. LABORATORY DATA: CBC today: WBC count is 13.1, hemoglobin is 11.2, and platelet counts were normal. The phosphorus was noted as normal this morning. IMPRESSION: 1. Costochondritis related to the acute excessive cough in this patient. 2. Acute exacerbation of chronic obstructive pulmonary disease. 3. Acute nicotine dependence and other medical management. PLAN OF TREATMENT: The patient has been ordered the local pain management. The patient has been receiving the Flexeril ordered by the primary care attending. Continuation of other therapy and plan of management at this time. Usual care. Other additional treatment changes will be ordered based on progression of the illness. Continue the medical management with slow improvement in the overall medical condition from the pulmonary standpoint. [place], [place] PROGRESS NOTE NAME: GABRIELA GARNER UNIT #: [id number] ROOM: [facility] DOCTOR: RUDI LARSEN MD BIRTHDATE: [birth year] RUDI STAUFFER MD CM:PNTRANS [id number] URDI GONSALEZ MD 04/03/18 1010 interface
--- NOTE | ~2018-03-18 | EKG ---
[place], [place] ELECTROCARDIOGRAM REPORT NAME: GABRIELA GARNER UNIT #: [id number] ROOM: 411 DOCTOR: TAPAN DRAFT REPORT BIRTHDATE: [birth year] [facility] Test Date: 2018-03-23 Test Time: 19:29:56 Pat Name: GABRIELA GARNER Department: Room: 411 2 Gender: F Assistant Director Of Security: SS RESP : 1960 Requested By: SCOT SÁNCHEZ Order Number: [id number] Reading MD: Hillary Lovelace MD Measurements Intervals [place] Rate: 87 P: 58 [place]: 134 QRS: -5 QRSD: 71 T: 33 QT: 363 QTc: 437 Interpretive Statements Sinus rhythm Probable left atrial enlargement Abnormal R-wave progression, early transition Compared to ECG 03/18/2018 10:47:12 No significant changes Electronically Signed On 03-24-2018 11:11:00 PST by Hillary Lovelace MD CM:EKGRPT:ELECTROCARDIOGRAM REPORT 28 1111 SCOT ROBERSON DRAFT REPORT SCOT SÁNCHEZ DO
--- NOTE | ~2018-03-18 | PR ---
[place], [place] PROGRESS NOTE NAME: GABRIELA GARNER UNIT #: [id number] ROOM: 411 DOCTOR: XIOMY GONSALEZ MDRUDI BIRTHDATE: [birth year] DOS: 03/23/2018 PULMONARY PROGRESS NOTE SUBJECTIVE: The patient has continuous severe nonproductive cough, musculoskeletal chest pain with costochondritis in anterior chest wall and symptoms of fever or chills. The wheezing was also noted continued and persistent. Shortness of breath occurs with exertion, but not reported at rest, using oxygen supplementation and taking all the prescription medication regularly. She denies symptoms of headache, nausea, vomiting, diarrhea, abdominal pain, hematemesis, melena, or hematochezia. She denies symptoms of edema or pain of the lower extremities. Remaining systems were reviewed and they were noted all negative. OBJECTIVE: VITAL SIGNS: Normal temperature, respiratory rate is 18, heart rate is 94, and blood pressure is 144/79. Pulse oxygen saturation on room air is 93% saturation. HEENT: On examination, head was atraumatic. Eyes nonicterus. NECK: Supple. CARDIOVASCULAR SYSTEM: S1, S2 is audible. LUNGS: The patient was noted with diffuse expiratory wheezing, still noted in the lungs bilaterally without changes from previous examination. ABDOMEN: Soft, nontender. Bowel sounds present. EXTREMITIES: Without any acute edema. VISIBLE SKIN: No lesions or rashes. MUSCULOSKELETAL: Without any acute deformities. CENTRAL NERVOUS SYSTEM: The patient noted intact. LABORATORY DATA: No labs were done today. IMPRESSION: 1. The patient with ongoing acute exacerbation of chronic obstructive pulmonary disease, acute bronchitis remained persistent with persistent symptoms, now resolving with current medical management. 2. The patient with history of chronic nicotine dependence as well and other medical illnesses. PLAN OF MANAGEMENT: Since the patient has plateaued and not responding to the treatment for the past 5 days of aggressive medical management ____ for exacerbation of chronic obstructive pulmonary disease. She would be considered for therapeutic bronchoscopy, planned to be done tomorrow morning. Risks and the benefits of the procedure were discussed with the patient. She was agreeable for the procedure. Procedure was scheduled to be done in the morning. [place], [place] PROGRESS NOTE NAME: GABRIELA GARNER UNIT #: [id number] ROOM: 411 DOCTOR: RUDI LARSEN MD BIRTHDATE: [birth year] RUDI STAUFFER MD CM:PNTRANS 1248 1 RUDI GONSALEZ MD 03/24/18 011 interface
--- NOTE | ~2018-03-18 | PROC NOTE ---
[place], [place] PROCEDURE NOTE NAME: [facility]EL[facility]ARNER [id number] UNIT #: [id number] ROOM: 411 DOCTOR: XIOMY GONSALEZ MD,RUDI BIRTHDATE: [birth year] DOS: 03/24/2018 PROCEDURE: Bronchoscopy. PREOPERATIVE DIAGNOSES: Severe nonresolving cough and wheezing with maximal medical management of chronic obstructive pulmonary disease. POSTOPERATIVE DIAGNOSES: Removal of the moderate amount of thick mucus plug from endobronchial tree bilaterally. Evidence of acute tracheobronchitis. PROCEDURE DESCRIPTION: Informed consent obtained. The patient brought to the OR and placed in supine position. Conscious sedation administered by the Anesthesia Department. After achieving proper sedation, airway introduced into the mouth. Bronchoscope advanced to the airway into laryngeal area. Epiglottis and vocal cords were seen. Bronchoscope advanced to vocal cord and tracheal lumen. Tracheal lumen was identified and noted with moderate amount of secretion, which was suctioned out. Moderate amount of mucus impaction noted in the multiple subsegmental endobronchial tree including the left lower lingula and left upper lobe. All secretions suctioned out with the help of normal saline wash, sent for cultures. Procedure well tolerated by the patient without difficulty. No complications noted during or after procedure. Postoperative finding will be discussed with the patient once the patient recovers the effects of acute sedation. RUDI STAUFFER MD CM:PROCNOTE:PROCEDURE NOTE [id number] RUDI GONSALEZ MD
--- NOTE | ~2018-03-18 | PR ---
[place], [place] PROGRESS NOTE NAME: GABRIELA GARNER [facility] #: [id number] UNIT #: [id number] ROOM: 411 DOCTOR: XIOMY GONSALEZ MD,RUDI BIRTHDATE: [birth year] DOS: 03/24/2018 ADDENDUM PULMONARY PROGRESS NOTE SUBJECTIVE: The patient is independently seen and examined in [id number] encounter. History was confirmed. Physical examination performed. Labs were personally reviewed. Physical examination performed. Assessment and management note of this patient was personally completed. The note which was completed by the medical claims manager was approved as well. The patient has been noted with similar symptoms of excessive wheezing with a nonproductive cough. Denies symptoms of chest pain, which is new. Still noted with pain, which are noted musculoskeletal with costochondritis and using the local pain management with heating pad. Denies symptoms of headache or diplopia. Denies symptoms of nausea, vomiting. The patient has not reported symptoms of edema or pain of the lower extremities. Denies symptoms of dysuria, suprapubic pain. Remaining systems were reviewed. They were noted all negative. She remains n.p.o. past midnight. Bronchoscopy planned to be done today. OBJECTIVE: VITAL SIGNS: Normal temperature, respiratory rate 18, heart rate 86, blood pressure 132/74. The pulse oxygen saturation on room air was 91% saturation at rest. HEENT: Examination shows head was atraumatic. Eyes nonicterus. CARDIOVASCULAR: S1, S2 audible. LUNGS: The patient was noted with persistent diffuse expiratory wheezing, no crackles. ABDOMEN: Flat, soft, nontender. EXTREMITIES: Without acute edema. MUSCULOSKELETAL: No acute deformities. SKIN: No lesions or rashes. CENTRAL NERVOUS SYSTEM: Cranial nerves 2-12 intact. LABORATORY DATA: The blood culture from admission 03/22/2018 reported finding no bacterial growth. CBC with WBC count 13.1, hemoglobin 11.8, platelet count 401,000. IMPRESSION: Ongoing acute exacerbation of chronic obstructive pulmonary disease, not responding to treatment with maximal medical management for the past 6 days of therapy with continued high dose steroids, bronchodilators, antibiotics. Review of the bronchoscopy. History of chronic nicotine dependence as well. PLAN OF TREATMENT: Proceed for bronchoscopy today. Any modification treatment if necessary will be ordered after the bronchoscopy. Continue other supportive therapy, plan of management and care plan and treatment. Usual care, other supportive therapy, plan of treatment and care. Any treatment changes modification necessary will be done after the bronchoscopy. [place], [place] PROGRESS NOTE NAME: GABRIELA GARNER [facility] #: [id number] UNIT #: [id number] ROOM: 411 DOCTOR: RUDI LARSEN MD BIRTHDATE: [birth year] RUDI STAUFFER MD CM:PNTRANS 1226 [id number] RUDI GONSALEZ MD 03/24/18 2345 interface
--- NOTE | ~2018-03-18 | PR ---
[place], [place] PROGRESS NOTE NAME: [facility]AB[facility]EL[facility]ARNER [facility] [id number] UNIT #: [id number] ROOM: 411 DOCTOR: XIOMY GONSALEZ MD,RUDI BIRTHDATE: [birth year] DOS: 03/20/2018 SUBJECTIVE: She was still reporting symptoms of coughing, wheezing and shortness of breath. Denies symptoms of fever or chills. Denies symptoms of chest pain or hemoptysis. There has not been much sputum expectoration. OBJECTIVE: VITAL SIGNS: Normal temperature, respiratory rate 18, heart rate of 89, blood pressure 160/86. Pulse oxygen saturation noted room air 93% saturation. HEENT: Examination shows head was atraumatic. Eyes nonicterus. NECK: Supple. CARDIOVASCULAR: S1, S2 is audible. LUNGS: Noted with moderate expiratory wheezing bilaterally. ABDOMEN: Soft and nontender. Bowel sounds are present. EXTREMITIES: Noted without any acute edema. IMPRESSION: Ongoing acute exacerbation of chronic obstructive pulmonary disease with persistent wheezing with shortness of breath and nonproductive cough. History of chronic nicotine dependence as well. PLAN OF THERAPY: No changes in the plan of care at this time. Continuation of current treatment plan with steroids, bronchodilators, oxygen supplementation and other treatments. RUDI STAUFFER MD CM:PNTRANS 0853 1214 RUDI GONSALEZ MD 03/20/18 1215 interface
--- NOTE | ~2018-03-18 | PR ---
[place], [place] PROGRESS NOTE NAME: GABRIELA GARNER [facility] #: [id number] UNIT #: [id number] ROOM: 411 DOCTOR: XIOMY GONSALEZ MD,RUDI BIRTHDATE: [birth year] DOS: 03/22/2018 SUBJECTIVE: The patient was noted about the same as of yesterday. The pain has been noted decreased using the heating pad that was ordered. Shortness of breath and cough remains the same without change in the last 24 hours. Denies symptoms of fever or chills, edema, or pain of the lower extremities. OBJECTIVE: VITAL SIGNS: For the patient which were recorded showed the temperature noted as normal, respiratory rate 18, heart rate 87, blood pressure 140/70, pulse ox saturation on room air is 94% saturation. HEENT: Examination shows head was atraumatic. Eyes nonicterus. NECK: Supple. CARDIOVASCULAR: S1, S2 is audible. LUNGS: The patient was noted with decreased breath sounds with moderate expiratory wheezing, no crackles. ABDOMEN: Soft, flat, nontender, bowel sounds present. EXTREMITIES: No acute edema. IMPRESSION: Ongoing acute exacerbation of chronic obstructive pulmonary disease, acute tracheobronchitis, persistent symptoms of wheezing, cough, musculoskeletal chest pain with costochondritis. PLAN OF MANAGEMENT: Continue current plan of management with steroids, bronchodilators, oxygen, and others. No change in treatment will be necessary. Monitor respiratory status closely. RUDI STAUFFER MD CM:PNTRANS 1124 0505 RUDI GONSALEZ MD 03/23/18 0505 interface
--- NOTE | ~2018-03-18 | EKG ---
[place], [place] ELECTROCARDIOGRAM REPORT NAME: GABRIELA GARNER UNIT #: [id number] ROOM: 411 DOCTOR: TAPAN DRAFT REPORT BIRTHDATE: [birth year] [facility] Test Date: 2018-03-18 Test Time: 10:47:12 Pat Name: GABRIELA GARNER Department: Room: 411 Gender: F Gut Puller: Maria Antonia Tang : 1960 Requested By: PRINCESS MACKEY Order Number: [id number] Reading MD: Driss Orlando MD Measurements Intervals [place] Rate: 85 P: 65 MS: 143 QRS: 6 QRSD: 78 T: 39 QT: 359 QTc: 427 Interpretive Statements Sinus rhythm Compared to ECG 12/29/2017 13:16:30 No significant changes Electronically Signed On 03-19-2018 12:35:53 PST by Driss Orlando MD CM:EKGRPT:ELECTROCARDIOGRAM REPORT 1047 1235 PRINCESS ROBERSON DRAFT REPORT PRINCESS MACKEY DO
[2018-03-18 10:23] VITALS: BP 138/90
[2018-03-18 11:30] VITALS: BP 141/88
[2018-03-18 11:31] LABS: BASO # 0.1 10*3/uL (0.0-0.1); BASO % 0.7 % (0.0-1.0); EOS # 0.1 10*3/uL (0.0-0.4); EOS % 0.5 % (1.0-4.0); LYMPH # 1.6 10*3/uL (1.3-4.4); LYMPH % 12.6 % (27.0-41.0); MEAN CELL VOLUME 89.9 fl (81.0-99.0); MEAN CORPUSCULAR HGB CONC 33.3 g/dl (33.0-37.0); MEAN PLATELET VOLUME 9.7 fl (9.6-12.3); MONO # 0.8 10*3/uL (0.1-1.0); MONO % 6.3 % (3.0-9.0); NEUT # 9.8 10*3/uL (2.3-7.9); NEUT % 79.6 % (47.0-73.0); PLATELET COUNT AUTOMATED 427 10*3/uL (130-400); RED BLOOD COUNT 4.67 10*6/uL (4.10-5.10); RED CELL DISTRI WIDTH 13.3 % (0-14.5); WHITE BLOOD COUNT 12.3 10*3/uL (4.8-10.8)
[2018-03-18 11:46] LABS: ACT PARTIAL THROMBO TIME 24.5 SECONDS (20.8-31.5)
[2018-03-18 11:49] LABS: ALBUMIN 3.7 gm/dl (3.1-4.5); ALKALINE PHOSPHATASE 123 U/L (45-117); BUN 16 mg/dl (7-24); CHLORIDE 106 mmol/L (98-107); CREATININE 1.04 mg/dL (0.55-1.02); LIPASE 110 U/L (73-393); POTASSIUM 3.6 mmol/L (3.5-5.1); SGOT/AST 16 IU/L (3-35); SGPT/ALT 19 U/L (12-78); SODIUM 135 mmol/L (136-145)
[2018-03-18 11:50] LABS: TOTAL PROTEIN 7.2 gm/dL (6.4-8.2)
[2018-03-18 11:51] LABS: TROPONIN I < 0.015 ng/ml (<0.045)
[2018-03-18 12:21] VITALS: BP 132/82
[2018-03-18 13:06] VITALS: BP 162/83
[2018-03-18] MEDS ORDERED: OMEPRAZOLE D/R20 MG PO (13:48)
[2018-03-18] MEDS ORDERED: LEXAPRO10 MG PO (13:49)
[2018-03-18] MEDS ORDERED: VITAMIN C500 M4 PO (13:51)
[2018-03-18] MEDS ORDERED: FISH OIL 1,0001 EAC1 PO (13:53)
[2018-03-18] MEDS ORDERED: PRINIVIL10 MG PO (13:54)
[2018-03-18] MEDS ORDERED: NEURONTIN300 MG PO (13:54)
[2018-03-18] MEDS ORDERED: VISTARIL50 MG PO (13:56)
[2018-03-18] MEDS ORDERED: PROMETHAZINE D118 ML PO (13:58)
[2018-03-18] MEDS ORDERED: MUCINEX D ER T1 EACH PO (13:59)
[2018-03-18] MEDS ORDERED: CYCLOBENZAPRINE10 MG PO (14:00)
[2018-03-18] MEDS ORDERED: AMBIEN10 M1 JT (14:01)
[2018-03-18 16:00] VITALS: BP 123/60
[2018-03-18 20:00] VITALS: BP 127/68
[2018-03-19] VITALS: BP 121/65
[2018-03-19 06:23] LABS: BASO % 0.1 % (0.0-1.0); HEMATOCRIT 36.2 % (37.0-47.0); LYMPH % 8.8 % (27.0-41.0); MEAN CELL VOLUME 90.3 fl (81.0-99.0); MEAN CORPUSCULAR HGB 29.4 pg (27.0-31.0); MEAN CORPUSCULAR HGB CONC 32.6 g/dl (33.0-37.0); MEAN PLATELET VOLUME 10.2 fl (9.6-12.3); MONO # 0.3 10*3/uL (0.1-1.0); MONO % 2.4 % (3.0-9.0); NEUT # 10.3 10*3/uL (2.3-7.9); NEUT % 88.4 % (47.0-73.0); PLATELET COUNT AUTOMATED 413 10*3/uL (130-400); RED BLOOD COUNT 4.01 10*6/uL (4.10-5.10); RED CELL DISTRI WIDTH 13.2 % (0-14.5); WHITE BLOOD COUNT 11.7 10*3/uL (4.8-10.8)
[2018-03-19 06:33] LABS: HEMOGLOBIN 11.8 g/dl (12.0-16.0)
[2018-03-19 06:51] LABS: ALBUMIN 3.2 gm/dl (3.1-4.5); ALKALINE PHOSPHATASE 111 U/L (45-117); BUN 22 mg/dl (7-24); CHLORIDE 106 mmol/L (98-107); CREATININE 0.74 mg/dL (0.55-1.02); PHOSPHOROUS 2.4 mg/dL (2.5-4.9); POTASSIUM 3.8 mmol/L (3.5-5.1); SGOT/AST 10 IU/L (3-35); SGPT/ALT 16 U/L (12-78); SODIUM 140 mmol/L (136-145); TOTAL PROTEIN 6.3 gm/dL (6.4-8.2)
[2018-03-19 08:00] VITALS: BP 128/64
[2018-03-19 12:00] VITALS: BP 111/55
[2018-03-19 16:00] VITALS: BP 132/74
[2018-03-19 20:00] VITALS: BP 137/71
[2018-03-20] VITALS: BP 145/75
[2018-03-20 06:36] LABS: BASO % 0.1 % (0.0-1.0); HEMATOCRIT 33.2 % (37.0-47.0); HEMOGLOBIN 10.8 g/dl (12.0-16.0); LYMPH # 1.4 10*3/uL (1.3-4.4); LYMPH % 8.3 % (27.0-41.0); MEAN CELL VOLUME 92.5 fl (81.0-99.0); MEAN CORPUSCULAR HGB 30.1 pg (27.0-31.0); MEAN CORPUSCULAR HGB CONC 32.5 g/dl (33.0-37.0); MEAN PLATELET VOLUME 10.2 fl (9.6-12.3); MONO # 0.7 10*3/uL (0.1-1.0); MONO % 3.9 % (3.0-9.0); NEUT # 15.1 10*3/uL (2.3-7.9); NEUT % 87.4 % (47.0-73.0); PLATELET COUNT AUTOMATED 393 10*3/uL (130-400); RED BLOOD COUNT 3.59 10*6/uL (4.10-5.10); RED CELL DISTRI WIDTH 13.6 % (0-14.5); WHITE BLOOD COUNT 17.3 10*3/uL (4.8-10.8)
[2018-03-20 08:00] VITALS: BP 148/86; BP 160/86
[2018-03-20 12:00] VITALS: BP 144/76
[2018-03-20 16:00] VITALS: BP 134/62
[2018-03-20 20:00] VITALS: BP 178/87
[2018-03-21] VITALS: BP 158/91
[2018-03-21 06:36] LABS: BASO % 0.2 % (0.0-1.0); HEMATOCRIT 34.7 % (37.0-47.0); HEMOGLOBIN 11.2 g/dl (12.0-16.0); LYMPH # 1.4 10*3/uL (1.3-4.4); MEAN CELL VOLUME 92.5 fl (81.0-99.0); MEAN CORPUSCULAR HGB 29.9 pg (27.0-31.0); MEAN CORPUSCULAR HGB CONC 32.3 g/dl (33.0-37.0); MEAN PLATELET VOLUME 9.9 fl (9.6-12.3); MONO # 0.6 10*3/uL (0.1-1.0); MONO % 4.7 % (3.0-9.0); NEUT % 83.6 % (47.0-73.0); PLATELET COUNT AUTOMATED 382 10*3/uL (130-400); RED BLOOD COUNT 3.75 10*6/uL (4.10-5.10); RED CELL DISTRI WIDTH 13.7 % (0-14.5); WHITE BLOOD COUNT 13.1 10*3/uL (4.8-10.8)
[2018-03-21 08:00] VITALS: BP 148/96; BP 158/72
[2018-03-21 12:00] VITALS: BP 178/90
[2018-03-21 16:00] VITALS: BP 153/75
[2018-03-21 20:00] VITALS: BP 153/77
[2018-03-22] VITALS: BP 154/76
[2018-03-22 08:00] VITALS: BP 148/78
[2018-03-22 12:00] VITALS: BP 163/96; BP 170/82
[2018-03-22 16:00] VITALS: BP 154/79
[2018-03-22 20:00] VITALS: BP 164/87
[2018-03-23] VITALS: BP 174/85
[2018-03-23 04:00] VITALS: BP 143/73
[2018-03-23 08:00] VITALS: BP 156/79
[2018-03-23 12:00] VITALS: BP 144/79
[2018-03-23 16:00] VITALS: BP 160/90
[2018-03-23 20:00] VITALS: BP 155/75
[2018-03-24] VITALS (9 sets, daily range): BP systolic 133–174; BP diastolic 74–96
[2018-03-24 06:26] LABS: BASO % 0.2 % (0.0-1.0); EOS % 0.1 % (1.0-4.0); HEMATOCRIT 36.1 % (37.0-47.0); HEMOGLOBIN 11.8 g/dl (12.0-16.0); LYMPH # 1.5 10*3/uL (1.3-4.4); LYMPH % 11.2 % (27.0-41.0); MEAN CELL VOLUME 90.9 fl (81.0-99.0); MEAN CORPUSCULAR HGB 29.7 pg (27.0-31.0); MEAN CORPUSCULAR HGB CONC 32.7 g/dl (33.0-37.0); MONO # 0.5 10*3/uL (0.1-1.0); NEUT % 83.7 % (47.0-73.0); PLATELET COUNT AUTOMATED 401 10*3/uL (130-400); RED BLOOD COUNT 3.97 10*6/uL (4.10-5.10); RED CELL DISTRI WIDTH 13.3 % (0-14.5); WHITE BLOOD COUNT 13.1 10*3/uL (4.8-10.8)
[2018-03-25] VITALS: BP 153/87
[2018-03-25 08:00] VITALS: BP 154/87
[2018-03-25] MEDS ORDERED: PREDNISONE10 MG PO (11:06)
[2018-03-25] MEDS ORDERED: ZITHROMAX250 MG PO (11:06)
[2018-03-25] MEDS ORDERED: LISINOPRIL20 MG PO (11:06)
[2018-03-25 15:12] LABS: ACID FAST SPEC PROCESSING Concentration (.)
== END 2018-03-25 12:35 | disposition home or self-care (01) | DRG 871 ==
LOC: ED 10:21 → 4E 12:07 → EDHOLD 12:07 → 4E 12:11
PROVIDERS: Emergency Medicine; Internal Medicine; Internal Medicine Critical Care Medicine; Registered Nurse
PROC: 0BC18ZZ Extirpation of Matter from Trachea, Via Natural or Artificial Opening Endoscopic (ICD-10-PCS; principal; 2018-03-24)
PROC: 0BC98ZZ Extirpation of Matter from Lingula Bronchus, Via Natural or Artificial Opening Endoscopic (ICD-10-PCS; 2018-03-24)
PROC: 0BC48ZZ Extirpation of Matter from Right Upper Lobe Bronchus, Via Natural or Artificial Opening Endoscopic (ICD-10-PCS; 2018-03-24)
PROC: 0BC88ZZ Extirpation of Matter from Left Upper Lobe Bronchus, Via Natural or Artificial Opening Endoscopic (ICD-10-PCS; 2018-03-24)
PROC: 0BC58ZZ Extirpation of Matter from Right Middle Lobe Bronchus, Via Natural or Artificial Opening Endoscopic (ICD-10-PCS; 2018-03-24)
PROC: 0BC38ZZ Extirpation of Matter from Right Main Bronchus, Via Natural or Artificial Opening Endoscopic (ICD-10-PCS; 2018-03-24)
PROC: 0BC78ZZ Extirpation of Matter from Left Main Bronchus, Via Natural or Artificial Opening Endoscopic (ICD-10-PCS; 2018-03-24)
PROC: 0BC68ZZ Extirpation of Matter from Right Lower Lobe Bronchus, Via Natural or Artificial Opening Endoscopic (ICD-10-PCS; 2018-03-24)
PROC: 0BCB8ZZ Extirpation of Matter from Left Lower Lobe Bronchus, Via Natural or Artificial Opening Endoscopic (ICD-10-PCS; 2018-03-24)
DX: A41.9 Sepsis, unspecified organism (principal); J18.9 Pneumonia, unspecified organism; J44.1 Chronic obstructive pulmonary disease with (acute) exacerbation; J96.11 Chronic respiratory failure with hypoxia; E44.0 Moderate protein-calorie malnutrition; J44.0 Chronic obstructive pulmonary disease with (acute) lower respiratory infection; M80.88XA Other osteoporosis with current pathological fracture, vertebra(e), initial encounter for fracture; J98.11 Atelectasis; F17.210 Nicotine dependence, cigarettes, uncomplicated; G43.909 Migraine, unspecified, not intractable, without status migrainosus; M94.0 Chondrocostal junction syndrome [Tietze]; K76.0 Fatty (change of) liver, not elsewhere classified; F32.9 Major depressive disorder, single episode, unspecified; F41.1 Generalized anxiety disorder; J20.9 Acute bronchitis, unspecified; F12.10 Cannabis abuse, uncomplicated; I10 Essential (primary) hypertension; R73.9 Hyperglycemia, unspecified; Z99.81 Dependence on supplemental oxygen; Z87.81 Personal history of (healed) traumatic fracture; Z71.6 Tobacco abuse counseling; Z87.01 Personal history of pneumonia (recurrent); Z90.710 Acquired absence of both cervix and uterus; Z90.49 Acquired absence of other specified parts of digestive tract; Z98.42 Cataract extraction status, left eye; Z98.41 Cataract extraction status, right eye; Z82.5 Family history of asthma and other chronic lower respiratory diseases; Z82.49 Family history of ischemic heart disease and other diseases of the circulatory system; Z83.2 Family history of diseases of the blood and blood-forming organs and certain disorders involving the immune mechanism; Z88.1 Allergy status to other antibiotic agents; Z88.6 Allergy status to analgesic agent; Z88.8 Allergy status to other drugs, medicaments and biological substances; Z79.899 Other long term (current) drug therapy; Z68.24 Body mass index [BMI] 24.0-24.9, adult

== ENCOUNTER 2018-03-30 07:56 | Inpatient (IN) | payer OTHER ==
[~2018-03-30] VITALS: Ht 162.5 cm; Wt 63.5 kg
--- NOTE | ~2018-03-30 | EKG ---
[place], [place] ELECTROCARDIOGRAM REPORT NAME: GABRIELA GARNER UNIT #: [id number] ROOM: 404 DOCTOR: TAPAN DRAFT REPORT BIRTHDATE: [birth year] [facility] Test Date: 2018-03-30 Test Time: 08:28:40 Pat Name: GABRIELA GARNER Department: Room: 404 Gender: F Freelance Operator: Hamida Muir : 1960 Requested By: GASPER WALKER Order Number: [id number] Reading MD: Driss Orlando MD Measurements Intervals [place] Rate: 95 P: 67 AZ: 178 QRS: 18 QRSD: 64 T: 56 QT: 382 QTc: 481 Interpretive Statements Sinus rhythm Compared to ECG 03/23/2018 19:29:56 Low QRS voltage now present Electronically Signed On 04-06-2018 6:51:18 PST by Driss Orlando MD CM:EKGRPT:ELECTROCARDIOGRAM REPORT [id number] 0651 GASPER ROBERSON DRAFT REPORT GASPER WALKER DO
--- NOTE | ~2018-03-30 | PR ---
[place], [place] PROGRESS NOTE NAME: GABRIELA GARNER UNIT #: [id number] ROOM: 404 DOCTOR: CELSO MICHAEL BIRTHDATE: [birth year] DOS: 04/02/2018 PULMONARY PROGRESS NOTE SUBJECTIVE: The patient was noted sitting comfortably at her bed at this time without any signs of acute distress. The patient received a vertebroplasty yesterday and states she is still in pain and feeling only slightly better. The patient has no complaints of fevers, chills and still complains of chest pain that is most likely referred from her compression fractures. Shortness of breath has been noted stable. PHYSICAL EXAMINATION: VITAL SIGNS: Temperature normal, respiratory rate 16, heart rate 92, blood pressure 96/60, pulse oxygen saturation on room air, 94% saturation. HEENT: Head is atraumatic. Eyes, nonicterus. NECK: Supple. CARDIOVASCULAR: S1, S2 audible. LUNGS: Slight wheezing. Breath sounds noted decreased bilaterally, mild. ABDOMEN: Soft, nontender. EXTREMITIES: No acute edema. CENTRAL NERVOUS SYSTEM: Grossly intact. LABORATORY DATA: Parathyroid hormone 31.8. IMAGING STUDIES: 04/01/2018, impression, successful T11 vertebroplasty. IMPRESSION: 1. Multilevel compression fractures, most likely result of current referred chest pain. 2. Resolving/stable chronic obstructive pulmonary disease. 3. Chronic O2 dependence. 4. Suspect osteoporosis as well. PLAN OF MANAGEMENT: No change in current plan of management from a pulmonary standpoint, suggest that patient still receive a Lexiscan outpatient to assess her for osteoporosis. CELSO MICHAEL DO [place], [place] PROGRESS NOTE NAME: GABRIELA GARNER UNIT #: [id number] ROOM: 404 DOCTOR: CELSO MICHAEL BIRTHDATE: [birth year] RUDI STAUFFER MD CM:MAGDALENA [id number] [id number] CELSO MICHAEL 04/02/18 1659 interface
--- NOTE | ~2018-03-30 | PR ---
[place], [place] PROGRESS NOTE NAME: GABRIELA GARNER [facility] #: [id number] UNIT #: [id number] ROOM: 404 DOCTOR: XIOMY GONSALEZ MD,RUDI BIRTHDATE: [birth year] DOS: 04/02/2018 SUBJECTIVE: The patient underwent a vertebroplasty yesterday that was completed by the Interventional Radiologist of T11 vertebral bone. The patient denies symptoms of fever or chills. The chest pain was still reported, not completely resolved. The cough and shortness of breath was still noted intermittently. PHYSICAL EXAMINATION: VITAL SIGNS: This morning, normal temperature, respirations 16, pulse 92, blood pressure 96/60. HEENT: Head was atraumatic. Eyes nonicterus. NECK: Supple. CARDIOVASCULAR: S1, S2 is audible. LUNGS: Without any wheeze or crackles at the present time. The breaths are noted mild to moderate decreased. ABDOMEN: Soft, nontender. Bowel sounds present. EXTREMITIES: No acute edema. IMPRESSION: 1. Multilevel compression fracture of thoracic spine, status post vertebroplasty of T11 vertebral bone yesterday. 2. The patient with stable COPD and bronchitis. PLAN OF MANAGEMENT: No change in pulmonary standpoint. Continue current pain management. Bronchodilators. Other therapy, plan of management as in progress. Usual care, other supportive plan of treatment and therapies. RUDI STAUFFER MD CM:PNTRANS 1101 1226 RUDI GONSALEZ MD 04/02/18 1225 interface
--- NOTE | ~2018-03-30 | CON ---
[place], [place] REPORT OF CONSULTATION NAME: GABRIELA GARNER [facility] #: [id number] UNIT #: [id number] ROOM: 404 DOCTOR: RUDI LARSEN MD BIRTHDATE: [birth year] DOS: 03/31/2018 CONSULTATION REQUESTED BY: Hospitalist service. REASON FOR CONSULTATION: Assessment of current chest pain for the patient who has symptoms of shortness of breath. HISTORY OF PRESENT ILLNESS: This is a 57-year-old white female patient who has been known well to me with recurrent hospitalization, recently treated in this hospital for the medical management of acute exacerbation of chronic obstructive pulmonary disease and persistent bronchitis. She was also noted symptoms of cough. The patient underwent bronchoscopy on 03/24/2018, discharged home on 03/26/2018. The patient presented to the hospital and stated that she has been known with the pain, which has been reported as chronic with significant worsening noted and not controlled with current medication prescription given ____ pain management as an outpatient. The pain was described to the patient's left anterior chest for radiating to the arm sometime, severe, intensity scale of 1-10 up to 8 or 9 reported. The pain was not associated with any syncopal episode or hemoptysis. The patient denies symptoms of hemoptysis. Denies symptoms of fever or chills. REVIEW OF SYSTEMS: CONSTITUTIONAL: Fatigue and tiredness noted without any symptoms of fever or chills. EYES: Denies burning, redness, or tenderness. EARS, NOSE, THROAT SYMPTOMS: Denies sore throat, hoarseness, otalgia, postnasal drainage or epistaxis. CARDIOVASCULAR: Denies angina pain, edema, and pain of the lower extremities. GASTROINTESTINAL: Denies dysphagia, nausea, vomiting, diarrhea, abdominal pain, hematemesis, melena, or hematochezia. GENITOURINARY: No dysuria or suprapubic pain. MUSCULOSKELETAL: There were no joint pain reported except some pain in the back of the thorax. SKIN: No lesions or rashes. MUSCULOSKELETAL: Without any acute deformities. PAST MEDICAL HISTORY: The patient with hospitalization in this hospital for several days from 03/18/2018 and discharged home on 03/25/2018. The patient did require therapy of bronchoscopy at that time, treated for acute exacerbation of chronic obstructive pulmonary disease, not responsive to the conductive maximal medical therapy for inpatient at that time. Past medical history, surgical history, social history, family history of the patient are reviewed with the patient from my consultation on 03/19/2018 and remains identical and unchanged except the changes which has been reported earlier in my dictation. Please refer to that consultation for review of any additional information necessary available in the #waywire document. CURRENT MEDICATIONS: Administered for this patient on this hospitalization were noted as the use of Prazosin, Zanaflex, lisinopril, Lexapro, ferrous sulfate, [place], [place] REPORT OF CONSULTATION NAME: GABRIELA GARNER UNIT #: [id number] ROOM: 404 DOCTOR: XIOMY GONSALEZ MD,RUDI BIRTHDATE: [birth year] omeprazole, imipramine, nicotine replacement patches 21 mg, gabapentin, Remeron, Solu-Medrol, DuoNeb, Zithromax and others. DRUG ALLERGY HISTORY: NOTED ALLERGY: 1. MORPHINE. 2. NAPROXEN. 3. DAYPRO. 4. LEVAQUIN. PHYSICAL EXAMINATION: GENERAL: A 57-year-old female patient who has been currently noted comfortable at this time, resting on the bed without any acute distress this morning of assessment. Height of 5 feet 4 inches, weight of 140 pounds, BMI 24. VITAL SIGNS: Normal temperature, respiratory rate of 18-22, heart rate of 94-101, blood pressure 126/67-143/85. Pulse oxygen saturation of the patient was noted on 2 liters nasal cannula 95% at rest on room air. The patient is 97% saturation. HEENT: Head was atraumatic. Eyes nonicterus. NECK: Supple. Oral mucosa moist. CARDIOVASCULAR: S1 and S2 is audible. LUNGS: There was no wheezing or crackles heard at the present time. ABDOMEN: Soft and nontender. Bowel sounds present. EXTREMITIES: The patient was noted without any acute edema. MUSCULOSKELETAL: The patient was noted without any deformities. Palpation of the breast area in the left side of was noted with the pain, which has been listed as muscles in the back as well in the upper thoracic posterior area. There was no abnormal rashes or lesions. CENTRAL NERVOUS SYSTEM: Cranial nerves 2-12 intact. LABORATORY DATA: CMP that was done yesterday noted normal BUN and creatinine. Remaining CMP normal. Influenza A and B, nasal washing antigen negative yesterday. CBC that was done yesterday, WBC count 17.3, hemoglobin and hematocrit were normal. CBC this morning, WBC count was elevated as 18.7, normal hemoglobin and hematocrit, platelet count mildly elevated 452,000. CMP of the patient this morning, normal BUN and creatinine, glucose 128. IMPRESSION: The patient has been currently admitted to the hospital with recurrent pain which is reported in the left side of the chest most likely musculoskeletal in origin, rule out any other additional causes of chest pain.1. The patient with chronic obstructive pulmonary disease without evidence of acute exacerbation at the present time with the resolution of cough and wheezing for the patient was reported in the physical examination and with the history obtained from the patient.2. History of nicotine dependence reported, but denying any active tobacco use in this morning of assessment.3. 4. General anxiety disorder. PLAN OF MANAGEMENT: The patient has been ordered Lidoderm patch for local pain. Heating pad for this patient as well. Ordered x-rays of the thoracic spine as [place], [place] REPORT OF CONSULTATION NAME: GABRIELA GARNER UNIT #: [id number] ROOM: [facility] DOCTOR: RUDI LARSEN MD BIRTHDATE: [birth year] a suspicion of thoracic spine fracture about T6 of this patient. The lateral view of the CT scan of 01/2018 can be completely excluded. Bronchodilators administration. Reduce the dose of Solu-Medrol, gradual reduction. Discontinuation will be considered in the next few days. Bronchodilator will be continued previously. Usual care, other therapy, plan of management, other pain management additional to be continued by the primary care physician. The patient should have mammogram to be done and is not done because of the current pain in the left chest reported as an outpatient consideration. The counseling about tobacco cessation and abstinence was also done. Thanks for allowing me to participate in the care of this patient. RUDI STAUFFER MD CM:CONSTR:REPORT OF CONSULTATION 1159 04/13/18 0941 interface
--- NOTE | ~2018-03-30 | PR ---
[place], [place] PROGRESS NOTE NAME: GABRIELA GARNER [facility] #: [id number] UNIT #: [id number] ROOM: 404 DOCTOR: CELSO MICHAEL BIRTHDATE: [birth year] DOS: 04/01/2018 PULMONARY PROGRESS NOTE SUBJECTIVE: The patient was noted sitting comfortably at her bed at this time without any signs of acute distress. The patient states she still has left-sided chest pain that has not gotten much better with the Lidoderm patch as well as heating pad. The patient states her shortness of breath is at its baseline state, and the patient denies symptoms of fevers, chills, and hemoptysis. OBJECTIVE: VITAL SIGNS: Normal temperature, respiratory rate 15, heart rate 89, blood pressure 144/77, and pulse oxygen saturation on room air 93% saturation. HEENT: Head is atraumatic. Eyes, nonicteric. NECK: Supple. CARDIOVASCULAR: S1, S2 audible. LUNGS: Wheezing throughout. Decreased breath sounds bilaterally. EXTREMITIES: No signs of acute edema. ABDOMEN: Soft, nontender. CENTRAL NERVOUS SYSTEM: Grossly intact. LABORATORY DATA: On 04/01/2018, CBC: White blood cell count 12.9, hemoglobin 12, and platelet count 403. IMAGING STUDIES: On 03/31/2018, thoracic spine x-ray; impression, multiple compression fractures, T1 compression fractures new since the prior CT of 02/03/2018. The margins appeared to be acute. Thoracic spine MRI 04/01/2018; impression, acute compression fracture of T11. Radiographically, the patient is a vertebroplasty candidate, old compression fractures of T6, T7, T8, and T10. IMPRESSION: 1. Left-sided chest pain, most likely musculoskeletal in nature, possibly referred pain from the patient's multiple compression fractures in her thoracic spine. 2. Acute compression fracture of T11. 3. Chronic obstructive pulmonary disease. The patient is short of breath. No signs of acute exacerbation at this time. 4. History of nicotine dependence. 5. General anxiety disorder. PLAN OF MANAGEMENT: We will continue current bronchodilators and medical management for the patient's pain. Chest x-ray and MRI showed acute compression fracture of T11. The patient is a candidate for vertebroplasty. Further management will depend on the patient's clinical status during her stay. CELSO MICHAEL [place], [place] PROGRESS NOTE NAME: GABRIELA GARNER UNIT #: [id number] ROOM: [facility] DOCTOR: CELSO MICHAEL BIRTHDATE: [birth year] RUDI STAUFFER MD CM:PNTRANS 1243 0055 CELSO MICHAEL 04/02/18 0445 interface
--- NOTE | ~2018-03-30 | CON ---
[place], [place] REPORT OF CONSULTATION NAME: GABRIELA GARNER [facility] #: [id number] UNIT #: [id number] ROOM: 404 DOCTOR: CELSO MICHAEL BIRTHDATE: [birth year] DOS: 03/31/2018 CONSULTED BY: Tracy Rabago APRN REASON FOR CONSULTATION: Acute exacerbation of COPD. HISTORY OF PRESENT ILLNESS: The patient is a 57-year-old female who has been noted for frequent hospitalizations with exacerbation of COPD. The patient was recently hospitalized from 03/18/2018-03/25/2018 for COPD exacerbation and pneumonitis. The patient received a bronch on 03/24/2018 and received Zithromax and Rocephin during her stay. The patient noted minimal improvement at this time with her bronch on 03/24/2018. After her bronch on Friday, the patient noticed a gradual increase in shortness of breath, but her major complaint was pain in the left side of her chest. This pain got worse with coughing and when palpated, the patient notes there is no real change in her wheezing, coughing/sputum production from her baseline. The patient denies fevers, chills or hemoptysis. REVIEW OF SYSTEMS: CONSTITUTIONAL: The patient denies fevers and chills, but admits to fatigue. EYES: Denies eye pain, itching. Ears, nose, throat symptoms, denies nasal congestion. CARDIOVASCULAR: Denies lower extremity edema and heart palpitations. GASTROINTESTINAL: Denies nausea, vomiting, diarrhea, abdominal pain, hematemesis, melena or hematochezia. SKIN: No rashes or lesions. MUSCULOSKELETAL: No acute changes in joints. PAST MEDICAL HISTORY: 1. End-stage chronic obstructive pulmonary disease and acute hypoxic respiratory failure. 2. Allergic rhinitis. 3. Anxiety disorder. 4. Persistent nicotine dependence. PAST SURGICAL HISTORY: 1. Complete hysterectomy. 2. Lumbar laminectomy. 3. Appendectomy. 4. Therapeutic bronchoscopies. SOCIAL HISTORY: The patient is and lives at home. Denies alcohol or illicit drug use. Tobacco from age of [age] years old, 2-1/2 packs of cigarettes per day, currently smokes a pack of cigarettes a day. Two children. FAMILY HISTORY: The patient's father at age 7070 years old due to complications of COPD. Mother at 65 years old due to complications of congestive heart failure. CURRENT MEDICATIONS: Breo, epinephrine p.r.n. anaphylaxis, ProAir, Ambien, [place], [place] REPORT OF CONSULTATION NAME: GABRIELA GARNER UNIT #: [id number] ROOM: [facility] DOCTOR: CELSO MICHAEL BIRTHDATE: [birth year] oxygen 3 liters per nasal cannula, Ventolin, BuSpar, calcium carbonate, vitamin D3, cyclobenzaprine, promethazine, Lexapro, Feosol, folic acid, gabapentin, Mucinex, Vistaril, ibuprofen, Tofranil, Zestril, Claritin, Remeron, fish oil, Prilosec, Zofran, potassium chloride, Minipress, Zanaflex. DRUG ALLERGIES: 1. FLUOROQUINOLONE. 2. DAYPRO. 3. NAPROXEN. 4. MORPHINE SULFATE. PHYSICAL EXAMINATION: GENERAL: The patient was noted awake and alert without any signs of acute distress. The patient is 5 feet 3 inches. BMI 24. VITAL SIGNS: Normal temperature, respiratory rate 18, heart rate 86, blood pressure 143/85, pulse oxygen saturation on 2 liters nasal cannula 95%. HEENT: Head was atraumatic. Eyes nonicterus. NECK: Supple. CARDIOVASCULAR: S1, S2 is audible. LUNGS: Wheezing noted throughout. Decreased breath sounds bilaterally. No crackles heard. SKIN: No abnormal rashes. ABDOMEN: Soft, flat, nontender. EXTREMITIES: Without acute edema. MUSCULOSKELETAL: No acute deformities. CENTRAL NERVOUS SYSTEM: Grossly intact. LABORATORY DATA: CBC on admission, dated 03/30/2018, white blood cell count 17.3, hemoglobin 14.1, platelet count 524. CMP on 03/31/2018, BUN 13, creatinine 0.7, carbon dioxide 25, glucose 101. CBC on 03/31/2018, white blood cell count 18.7, hemoglobin 12, platelet count 462. CMP on 03/31/2018, BUN 16, creatinine 0.68, carbon dioxide 23, glucose 128. IMPRESSION: 1. The patient will be currently admitted to the hospital, noted with pain of her left side chest, worse with palpation and coughing. 2. Chronic obstructive pulmonary disease, complaints of shortness of breath and acute bronchitis. PLAN OF MANAGEMENT: The patient was put on 40 mg methylprednisone. Azithromycin was discontinued. Bronchodilators will be continued. Due to the patient's left-sided chest pain, most likely musculoskeletal in nature, a Lidoderm patch will be ordered as well as Flexeril and a heating pad. Thoracic spine was also ordered as musculoskeletal pain could be referred. Finally, a mammogram will be ordered. Further changes in management will be made based upon changes in the patient's clinical status. Goal will be to get the patient out as soon as possible as her pain appears to be primarily musculoskeletal and her shortness of breath appears to be increased only slightly from her baseline with her denying increased symptoms of cough or sputum production. [place], [place] REPORT OF CONSULTATION NAME: PASCUALGABRIELA L UNIT #: [id number] ROOM: [facility] DOCTOR: CELSO MICHAEL BIRTHDATE: [birth year] CELSO MICHAEL DO RUDI STAUFFER MD CM:CONSTR:REPORT OF CONSULTATION 1304 04/01/18 1229 interface
--- NOTE | ~2018-03-30 | PR ---
[place], [place] PROGRESS NOTE NAME: GABRIELA GARNER [facility] #: [id number] UNIT #: [id number] ROOM: 404 DOCTOR: XIOMY GONSALEZ MD,RUDI BIRTHDATE: [birth year] DOS: 04/01/2018 SUBJECTIVE: The patient is still noted that the chest pain has been continuing, local pain management measures and others. The assessment of the patient was done for possibility of a thoracic vertebral compression fracture. The diagnosis was confirmed with the thoracic spine x-ray of T6. The patient has been noted with a partial fracture of other vertebral bone as well. She has not been noted any symptoms of fever or chills. There has not been noted symptoms of nausea, vomiting, or diarrhea as well. The patient has been continue with pain management. Shortness of breath has been noted, stable. There was mild coughing and no wheezing was reported by the patient. Remaining systems were reviewed, they were noted all negative. PHYSICAL EXAMINATION: GENERAL: The patient was comfortably resting at this time on her bed without acute distress. VITAL SIGNS: For the patient normal temperature, respiratory rate of 20, heart rate 86, blood pressure 125/76. Pulse oxygen saturation on room air 93% saturation. HEENT: Examination shows head was atraumatic. Eyes nonicterus. NECK: Supple. CARDIOVASCULAR: S1, S2 audible. LUNGS: Without any wheeze or crackles. The breaths are noted [id number] diminished bilaterally. ABDOMEN: Soft, nontender. Bowel sounds present. EXTREMITIES: Without acute edema. VISIBLE SKIN: No lesions or rashes. MUSCULOSKELETAL: Without acute deformities. CENTRAL NERVOUS SYSTEM: The patient's cranial nerves 2-12 intact. LABORATORY DATA: CBC of the patient this morning, WBC count 12.9, hemoglobin and hematocrit normal. PT/PTT were normal. CMP this morning, normal BUN and creatinine and remaining CMP, except alkaline phosphatase mildly elevated at 149. Thoracic spine x-ray for was noted with multilevel compression fracture, the largest was noted at T6 and new fracture was noted on T11. IMPRESSION: 1. The patient multilevel compression fractures result of the current referred pain. 2. Resolving acute exacerbation of chronic obstructive pulmonary disease. 3. Chronic O2 dependence. 4. Suspect osteoporosis as well, also rule out any other bone disorders such as hyperparathyroidism to be assessed as well. PLAN OF MANAGEMENT: No changes in the plan of care for the patient at this time. Ordered the PTH level for the patient. The patient was planned for possibility of a vertebroplasty to be done. The MRI was ordered to assess if the patient would be noted a candidate for vertebroplasty to be done by Interventional Radiology services. Other supportive therapy, plan of management [place], [place] PROGRESS NOTE NAME: GABRIELA GARNER [facility] #: [id number] UNIT #: [id number] ROOM: 404 DOCTOR: XIOMY GONSALEZ MD,RUDI BIRTHDATE: [birth year] as well, usual care, other therapy, plan of management as well. Outpatient bone scan should be done and Lexiscan for the patient to assess the osteoporosis. The PTH level was ordered. RUDI STAUFFER MD CM:PNTRANS [id number] RUDI GONSALEZ MD 04/01/18 1257 interface
[~2018-03-30 07:56] MED LIST changes: +AMBIEN10 M1 JT; +FISH OIL 1,0001 EAC1 PO; +LEXAPRO10 MG PO; +LISINOPRIL20 MG PO; +MUCINEX D ER T1 EACH PO; +OMEPRAZOLE D/R20 MG PO; +PRINIVIL10 MG PO; +PROMETHAZINE D118 ML PO; +VISTARIL50 MG PO; +VITAMIN C500 M4 PO
[2018-03-30 07:57] VITALS: BP 135/93
[2018-03-30 08:22] LABS: BASO % 0.2 % (0.0-1.0); EOS % 0.1 % (1.0-4.0); HEMATOCRIT 41.8 % (37.0-47.0); HEMOGLOBIN 14.1 g/dl (12.0-16.0); LYMPH # 3.9 10*3/uL (1.3-4.4); LYMPH % 22.3 % (27.0-41.0); MEAN CELL VOLUME 89.5 fl (81.0-99.0); MEAN CORPUSCULAR HGB 30.2 pg (27.0-31.0); MEAN CORPUSCULAR HGB CONC 33.7 g/dl (33.0-37.0); MEAN PLATELET VOLUME 9.9 fl (9.6-12.3); MONO # 1.3 10*3/uL (0.1-1.0); MONO % 7.2 % (3.0-9.0); NEUT # 12.1 10*3/uL (2.3-7.9); NEUT % 69.9 % (47.0-73.0); PLATELET COUNT AUTOMATED 524 10*3/uL (130-400); RED BLOOD COUNT 4.67 10*6/uL (4.10-5.10); RED CELL DISTRI WIDTH 13.7 % (0-14.5); WHITE BLOOD COUNT 17.3 10*3/uL (4.8-10.8)
[2018-03-30 09:04] LABS: ALBUMIN 3.2 gm/dl (3.1-4.5); ALKALINE PHOSPHATASE 152 U/L (45-117); BUN 13 mg/dl (7-24); CHLORIDE 102 mmol/L (98-107); CREATININE 0.79 mg/dL (0.55-1.02); POTASSIUM 4.3 mmol/L (3.5-5.1); SGOT/AST 19 IU/L (3-35); SGPT/ALT 31 U/L (12-78); SODIUM 137 mmol/L (136-145); TOTAL PROTEIN 7.4 gm/dL (6.4-8.2); TROPONIN I < 0.015 ng/ml (<0.045)
[2018-03-30 10:49] VITALS: BP 146/74
[2018-03-30 11:00] VITALS: BP 166/85
[2018-03-30] MEDS ORDERED: ZESTRIL20 MG PO (11:32)
[2018-03-30 16:00] VITALS: BP 123/72
[2018-03-30 20:00] VITALS: BP 126/67
[2018-03-31] VITALS: BP 158/59
[2018-03-31 06:38] LABS: BASO % 0.2 % (0.0-1.0); HEMATOCRIT 37.4 % (37.0-47.0); LYMPH # 2.1 10*3/uL (1.3-4.4); LYMPH % 11.4 % (27.0-41.0); MEAN CELL VOLUME 91.4 fl (81.0-99.0); MEAN CORPUSCULAR HGB 29.3 pg (27.0-31.0); MEAN CORPUSCULAR HGB CONC 32.1 g/dl (33.0-37.0); MEAN PLATELET VOLUME 9.9 fl (9.6-12.3); MONO # 1.1 10*3/uL (0.1-1.0); MONO % 5.8 % (3.0-9.0); NEUT # 15.4 10*3/uL (2.3-7.9); NEUT % 82.1 % (47.0-73.0); PLATELET COUNT AUTOMATED 462 10*3/uL (130-400); RED BLOOD COUNT 4.09 10*6/uL (4.10-5.10); RED CELL DISTRI WIDTH 13.8 % (0-14.5); WHITE BLOOD COUNT 18.7 10*3/uL (4.8-10.8)
[2018-03-31 07:15] LABS: ALBUMIN 2.9 gm/dl (3.1-4.5); ALKALINE PHOSPHATASE 147 U/L (45-117); BUN 16 mg/dl (7-24); CHLORIDE 105 mmol/L (98-107); CREATININE 0.68 mg/dL (0.55-1.02); PHOSPHOROUS 3.7 mg/dL (2.5-4.9); SGOT/AST 12 IU/L (3-35); SGPT/ALT 30 U/L (12-78); SODIUM 140 mmol/L (136-145); TOTAL PROTEIN 6.2 gm/dL (6.4-8.2)
[2018-03-31 08:00] VITALS: BP 143/85
[2018-03-31 12:00] VITALS: BP 143/77
[2018-03-31 16:00] VITALS: BP 122/62
[2018-03-31 20:00] VITALS: BP 126/78
[2018-04-01] VITALS (13 sets, daily range): BP systolic 125–161; BP diastolic 68–100
[2018-04-01 08:05] LABS: BASO % 0.2 % (0.0-1.0); EOS # 0.1 10*3/uL (0.0-0.4); EOS % 0.8 % (1.0-4.0); HEMATOCRIT 37.3 % (37.0-47.0); LYMPH # 3.9 10*3/uL (1.3-4.4); LYMPH % 29.9 % (27.0-41.0); MEAN CELL VOLUME 92.6 fl (81.0-99.0); MEAN CORPUSCULAR HGB 29.8 pg (27.0-31.0); MEAN CORPUSCULAR HGB CONC 32.2 g/dl (33.0-37.0); MEAN PLATELET VOLUME 9.5 fl (9.6-12.3); NEUT # 7.8 10*3/uL (2.3-7.9); NEUT % 60.7 % (47.0-73.0); PLATELET COUNT AUTOMATED 403 10*3/uL (130-400); RED BLOOD COUNT 4.03 10*6/uL (4.10-5.10); RED CELL DISTRI WIDTH 14.1 % (0-14.5); WHITE BLOOD COUNT 12.9 10*3/uL (4.8-10.8)
[2018-04-01 08:14] LABS: ACT PARTIAL THROMBO TIME 20.5 SECONDS (20.8-31.5); INTERNATIONAL NORM RATIO 0.9 (2.0-3.5)
[2018-04-01 08:21] LABS: ALBUMIN 3.1 gm/dl (3.1-4.5); ALKALINE PHOSPHATASE 149 U/L (45-117); BUN 17 mg/dl (7-24); CHLORIDE 103 mmol/L (98-107); CREATININE 0.78 mg/dL (0.55-1.02); POTASSIUM 3.7 mmol/L (3.5-5.1); SGOT/AST 19 IU/L (3-35); SGPT/ALT 45 U/L (12-78); SODIUM 141 mmol/L (136-145); TOTAL PROTEIN 6.5 gm/dL (6.4-8.2)
[2018-04-02] VITALS: BP 154/87
[2018-04-02 08:00] VITALS: BP 96/60
[2018-04-02 12:00] VITALS: BP 124/68
[2018-04-02] MEDS ORDERED: PREDNISONE10 MG PO (13:59)
== END 2018-04-02 14:53 | disposition home or self-care (01) | DRG 853 ==
LOC: ED 07:56 → EDHOLD 10:11 → 4E 10:11
PROVIDERS: Emergency Medicine; Registered Nurse
PROC: 0PU43JZ Supplement Thoracic Vertebra with Synthetic Substitute, Percutaneous Approach (ICD-10-PCS; principal; 2018-04-01)
PROC: BR151ZZ Fluoroscopy of Thoracic Facet Joint(s) using Low Osmolar Contrast (ICD-10-PCS; 2018-04-01)
DX: A41.9 Sepsis, unspecified organism (principal); J18.9 Pneumonia, unspecified organism; J44.1 Chronic obstructive pulmonary disease with (acute) exacerbation; J96.11 Chronic respiratory failure with hypoxia; E44.0 Moderate protein-calorie malnutrition; J44.0 Chronic obstructive pulmonary disease with (acute) lower respiratory infection; S22.080A Wedge compression fracture of T11-T12 vertebra, initial encounter for closed fracture; F32.9 Major depressive disorder, single episode, unspecified; F17.210 Nicotine dependence, cigarettes, uncomplicated; G89.29 Other chronic pain; M54.9 Dorsalgia, unspecified; J20.9 Acute bronchitis, unspecified; K21.9 Gastro-esophageal reflux disease without esophagitis; M94.0 Chondrocostal junction syndrome [Tietze]; F41.1 Generalized anxiety disorder; G43.909 Migraine, unspecified, not intractable, without status migrainosus; E55.9 Vitamin D deficiency, unspecified; I10 Essential (primary) hypertension; R73.9 Hyperglycemia, unspecified; X58.XXXA Exposure to other specified factors, initial encounter; Z88.1 Allergy status to other antibiotic agents; Z79.899 Other long term (current) drug therapy; Z71.6 Tobacco abuse counseling; Z88.8 Allergy status to other drugs, medicaments and biological substances; Z88.6 Allergy status to analgesic agent; Z99.81 Dependence on supplemental oxygen; Z87.81 Personal history of (healed) traumatic fracture; Z85.41 Personal history of malignant neoplasm of cervix uteri; Z87.01 Personal history of pneumonia (recurrent); Z98.42 Cataract extraction status, left eye; Z98.41 Cataract extraction status, right eye; Z90.710 Acquired absence of both cervix and uterus; Z82.49 Family history of ischemic heart disease and other diseases of the circulatory system; Z82.5 Family history of asthma and other chronic lower respiratory diseases; Y93.89 Activity, other specified; Y92.89 Other specified places as the place of occurrence of the external cause; Y99.8 Other external cause status

== ENCOUNTER 2018-04-15 08:11 | Inpatient (IN) | payer OTHER ==
[~2018-04-15] VITALS: Ht 162.5 cm; Wt 60.9 kg
--- NOTE | ~2018-04-15 | PR ---
[place], [place] PROGRESS NOTE NAME: GABRIELA GARNER [facility] #: [id number] UNIT #: [id number] ROOM: 515 DOCTOR: XIOMY GONSALEZ MD,RUDI BIRTHDATE: [birth year] DOS: 04/19/2018 SUBJECTIVE: The patient was noted comfortable at this time, but still complaining of symptoms of chest pain, remains severe shortness of breath, wheezing reported by the patient. Denies symptoms of nausea, vomiting, diarrhea or any abdominal pain. OBJECTIVE: VITAL SIGNS: For the patient which has been recorded shows a normal temperature, respiratory rate 20, heart rate 91, blood pressure 160/98. Pulse oxygen saturation on room air 98% saturation. HEAD, EYES, EARS, NOSE, AND THROAT: Examination shows head was atraumatic. Eyes: No icterus. NECK: Supple. CARDIOVASCULAR SYSTEM: S1, S2 is audible. LUNGS: Noted without any crackles. Mild to moderate expiratory wheezing was noted. ABDOMEN: Soft, nontender, bowel sounds present. EXTREMITIES: Without any acute edema. IMPRESSION: 1. The patient who has been currently noted with persistent chest pain with possibility showed new compression fracture, resulting in the pain would be explored further. 2. Resolving exacerbation of chronic obstructive pulmonary disease. PLAN OF TREATMENT: Solu-Medrol 40 mg b.i.d. Further gradual reduction based on improvement in symptom. Consider obtaining MRI of the thoracic spine for reassessment with possibility of addition of compression fracture resulting in referred pain. RUDI STAUFFER MD CM:PNMORGAN [id number] RUDI GONSALEZ MD 04/19/18 1355 interface
--- NOTE | ~2018-04-15 | EKG ---
[place], [place] ELECTROCARDIOGRAM REPORT NAME: GABRIELA GARNER UNIT #: [id number] ROOM: 515 DOCTOR: TAPAN DRAFT REPORT BIRTHDATE: [birth year] [facility] Test Date: 2018-04-15 Test Time: 08:52:03 Pat Name: GABRIELA GARNER Department: Room: [facility] Gender: F Supervisor Finish End: : 1960 Requested By: PRINCESS MACKEY Order Number: [id number] Reading MD: Jaun Farias MD Measurements Intervals [place] Rate: 98 P: 55 VT: 133 QRS: -8 QRSD: 67 T: 27 QT: 337 QTc: 431 Interpretive Statements Sinus rhythm Probable left atrial enlargement Borderline T abnormalities, anterior leads Compared to ECG 03/30/2018 08:28:40 T-wave abnormality now present Electronically Signed On 04-15-2018 18:19:33 PST by Jaun Farisa MD CM:EKGRPT:ELECTROCARDIOGRAM REPORT [id number] PRINCESS ROBERSON DRAFT REPORT PRINCESS MACKEY DO
--- NOTE | ~2018-04-15 | CON ---
[place], [place] REPORT OF CONSULTATION NAME: GABRIELA GARNER [facility] #: [id number] UNIT #: [id number] ROOM: 515 DOCTOR: RUDI LARSEN MD BIRTHDATE: [birth year] DOS: 04/18/2018 PULMONARY CONSULTATION, EVALUATION AND MANAGEMENT CONSULTATION REQUESTED BY: Hospitalist services. REASON FOR CONSULTATION: To assess the patient's current chest pain and symptoms of shortness of breath, cough and wheezing HISTORY OF PRESENT ILLNESS: A 57-year-old white female known to me, has been noted with osteoporosis of the spine for this patient, frequent hospitalization for exacerbation of COPD. The patient has been managed in the hospital. The patient underwent kyphoplasty of the thoracic spine of one vertebral bone and discharged home on 04/02/2018. The patient remained at home and readmitted to the hospital on 04/15/2018 complaining of worsening of the chest pain radiating from the back to the sternal area. The patient denies symptoms of fever or chills. She does have symptoms of cough, which has been noted intermittently. Denies symptoms of nausea or vomiting. The patient does have symptoms of wheezing intermittently with symptoms of shortness of breath. She had been currently admitted to the hospital and being managed for acute exacerbation of COPD. REVIEW OF SYSTEMS: CONSTITUTIONAL SYMPTOMS: Fatigue and tiredness noted without any symptoms of fever or chills. EYES: Denied burning, redness, or tenderness. EARS, NOSE, AND THROAT SYMPTOMS: Denies sore throat, hoarseness, otalgia, postnasal drainage or epistaxis. CARDIOVASCULAR: Denies anginal pain, edema, or pain of the lower extremities. GASTROINTESTINAL SYMPTOMS: Denies symptoms of dysphagia, nausea, vomiting, diarrhea, abdominal pain, hematemesis, melena, or hematochezia. SKIN: Denies abnormal lesions or rashes. MUSCULOSKELETAL SYMPTOMS: The pain was noted in the back of the spine. CENTRAL NERVOUS SYSTEM: Denied headache, diplopia, or syncopal episode. Remaining systems were reviewed. They were noted all negative. PAST MEDICAL HISTORY: 1. End-stage chronic obstructive pulmonary disease. 2. Chronic hypoxic respiratory failure. 3. Allergic rhinitis. 4. Generalized anxiety disorder. 5. Nicotine dependence. 6. T11 compression fracture, status post vertebroplasty on 03/2018. 7. Osteoporosis/osteopenia. PAST SURGICAL HISTORY: 1. Complete hysterectomy. 2. Lumbar laminectomy. 3. Appendectomy. [place], [place] REPORT OF CONSULTATION [facility] [id number] UNIT #: [id number] ROOM: [facility] DOCTOR: XIOMY GONSALEZ MD,RUDI BIRTHDATE: [birth year] 4. Therapeutic bronchoscopy. 5. T11 compression fracture, status post vertebroplasty in 03/2018. SOCIAL HISTORY: The patient is and lives at home. Tobacco use noted at age of [age] years old, 2-1/2 pack of cigarettes per day previously, still smoking cigarettes intermittently of different quantities. Denies history of illicit drug use. She has 2 children. Denies any illicit drug use or any alcohol dependence. FAMILY HISTORY: The patient's father at 70 years of complication of COPD. Mother at 65 with complication of congestive heart failure. MEDICATIONS: The current medication administered as high dose Solu-Medrol of 60 mg q.8 hours that was changed to 40 mg b.i.d. by the primary care attending, potassium chloride, vitamin D, Fosamax, Pulmicort Respules, Mucinex, nicotine replacement patch, lisinopril, Lexapro, omeprazole, imipramine, folic acid, loratadine, Lovenox for DVT prophylaxis, DuoNeb, prazosin, Remeron, gabapentin 600 mg t.i.d., Flexeril, Rocephin, Zithromax, and other p.r.n. medications. DRUG ALLERGY HISTORY: THE PATIENT WAS NOTED ALLERGY: 1. MORPHINE. 2. NAPROXEN. 3. DAYPRO CAUSING ALL ITCHING AND VOMITING. 4. LEVAQUIN CAUSING REDNESS AT THE INJECTION SITE. PHYSICAL EXAMINATION: GENERAL: A 57-year-old female patient who has been noted currently awake and alert without any distress. Height of 5 feet 4 inches, weight 134 pounds, BMI 23. VITAL SIGNS: The patient has normal temperature, respiratory rate 18-16, heart rate of 80-101, blood pressure 146/60-150/90. Pulse oxygen saturation was recorded as 96% saturation on room air. HEENT: Examination shows head was atraumatic. Eyes nonicterus. NECK: Supple. CARDIOVASCULAR: S1, S2 is audible. LUNGS: The patient was noted without any crackles. Moderate expiratory wheezing noted in the lungs bilaterally. ABDOMEN: Soft, nontender. Bowel sounds present. EXTREMITIES: The patient was noted without any acute edema. LABORATORY DATA: The acid fast bacillus, which has been assessed in the bronchial washing 2016, 11/03/2017, 02/09/2018 all were noted. There were no growth of acid fast bacillus. The culture, recent bronchoscopy on 03/24/2018 was pending. The smear was noted negative. The blood culture was noted no bacterial growth. BMP that was done yesterday, normal BUN and creatinine. Glucose 135. CBC that was done yesterday, hemoglobin 10.5, WBC count normal, platelet count was normal. RADIOLOGY DATA: Lumbar and thoracic spine x-ray, which was done for this patient 0n 04/15/2018 during the Emergency Room assessment was noted with T12 [place], [place] REPORT OF CONSULTATION NAME: GABRIELA GARNER UNIT #: [id number] ROOM: [facility] DOCTOR: JOCELYN LARSEN MDM BIRTHDATE: [birth year] severe compression fracture. Severe osteopenia was also reported. Lumbar x-ray shows degenerative disk disease. The patient had a CT scan of the chest that was done on this admission as well. The images for Pulmonary were reviewed. It does not show any acute pulmonary infiltration, other nodules. Changes of emphysema was noted. There was no discharge, no fracture or other abnormalities reported. I do not have an access to 3D reconstruction images of the spine to analyze that area. IMPRESSION: 1. The patient who has been still reporting symptoms of chest pain, which have been reportedly got worse recently with the compression fracture with vertebroplasty that was done on recent admission by Dr. Cantor of the [address] [place] [address]. 2. Persistent acute exacerbation of chronic obstructive pulmonary disease, currently treated with the steroids. 3. Acute bronchitis. 4. Chronic nicotine abuse as well. PLAN OF MANAGEMENT: Continue the current temporary increase steroids, but the dose should be decreased again for the next 24 hours. At the present time, the dose could be decreased again 40 mg b.i.d. dosing to assess for any infection and treated accordingly. Consider repeating the MRI of the thoracic spine to reassess any additional compression fracture resulting in current referred pain in the midthoracic bone areas. Usual care, other supportive therapy, plan of management, care plan for the patient. Supportive care. Other treatment plan of management as outlined previously. RUDI STAUFFER MD CM:CONSTR:REPORT OF CONSULTATION 1307 05/11/18 0946 interface
[2018-04-15 08:11] VITALS: BP 134/81
[~2018-04-15 08:11] MED LIST changes: -AMBIEN10 M1 JT; +ZESTRIL20 MG PO
[2018-04-15 08:54] LABS: BASO # 0.1 10*3/uL (0.0-0.1); BASO % 0.7 % (0.0-1.0); EOS # 0.1 10*3/uL (0.0-0.4); EOS % 0.7 % (1.0-4.0); HEMATOCRIT 40.3 % (37.0-47.0); HEMOGLOBIN 13.7 g/dl (12.0-16.0); LYMPH # 1.9 10*3/uL (1.3-4.4); LYMPH % 20.2 % (27.0-41.0); MEAN CORPUSCULAR HGB 29.9 pg (27.0-31.0); MEAN PLATELET VOLUME 9.6 fl (9.6-12.3); MONO # 0.7 10*3/uL (0.1-1.0); MONO % 6.9 % (3.0-9.0); NEUT # 6.7 10*3/uL (2.3-7.9); NEUT % 71.2 % (47.0-73.0); PLATELET COUNT AUTOMATED 555 10*3/uL (130-400); RED BLOOD COUNT 4.58 10*6/uL (4.10-5.10); RED CELL DISTRI WIDTH 13.7 % (0-14.5); WHITE BLOOD COUNT 9.4 10*3/uL (4.8-10.8)
[2018-04-15 09:03] LABS: ACT PARTIAL THROMBO TIME 23.6 SECONDS (20.8-31.5)
[2018-04-15 09:09] LABS: ALBUMIN 3.5 gm/dl (3.1-4.5); ALKALINE PHOSPHATASE 156 U/L (45-117); BUN 6 mg/dl (7-24); CHLORIDE 99 mmol/L (98-107); CREATININE 0.93 mg/dL (0.55-1.02); LIPASE 129 U/L (73-393); POTASSIUM 2.9 mmol/L (3.5-5.1); SGOT/AST 18 IU/L (3-35); SGPT/ALT 27 U/L (12-78); SODIUM 137 mmol/L (136-145); TOTAL PROTEIN 7.4 gm/dL (6.4-8.2)
[2018-04-15 09:13] LABS: TROPONIN I < 0.015 ng/ml (<0.045)
[2018-04-15 10:34] VITALS: BP 123/83
[2018-04-15 11:30] VITALS: BP 154/82
--- NOTE | 2018-04-15 11:30 | NUR ---
A 57, admitted to , under the services of MICKI Dacosta DO with a diagnosis of COPD. Chief complaint is PAIN TO STERUM AND BACK. Patient arrived via stretcher from ER. Monitor applied. Initial assessment completed. Vital signs taken and recorded. MICKI DACOSTA DO notified of admission to the unit. Orders received. See assessment for past medical history, medications and allergies. Patient and/or family oriented to unit. [facility] reviewed. REBEKAH GARNER
--- NOTE | 2018-04-15 13:15 | NUR ---
patient specifically requested [facility] home health nursing, [facility] nery notified Shameka nurse director of hospitalists. Order received.
--- NOTE | 2018-04-15 13:43 | NUR ---
Routine medications given at this time. Pt medicated with norco per prn order for complaints of back pain and mid sternal chest pain. Pain increases when coughing.
[2018-04-15 16:00] VITALS: BP 121/76
[2018-04-15 20:00] VITALS: BP 128/80
[2018-04-16] VITALS: BP 122/74
--- NOTE | 2018-04-16 07:15 | NUR ---
BEDSIDE REPORT OBTAINED FROM MAURICIO. PATIENT APPEARS TO BE ASLEEP, EYES CLOSED. NO S&S OF DISTRESS NOTED, REAP ARE ERND ON ROOM AIR. BED IS LOCEKD IN LOWEST POSTION, CALL LIGHT LEFT WITHIN REACH.
[2018-04-16 07:38] LABS: BASO % 0.1 % (0.0-1.0); LYMPH # 1.5 10*3/uL (1.3-4.4); LYMPH % 19.6 % (27.0-41.0); MEAN CELL VOLUME 88.5 fl (81.0-99.0); MEAN CORPUSCULAR HGB 29.8 pg (27.0-31.0); MEAN CORPUSCULAR HGB CONC 33.6 g/dl (33.0-37.0); MEAN PLATELET VOLUME 9.6 fl (9.6-12.3); MONO # 0.4 10*3/uL (0.1-1.0); MONO % 5.3 % (3.0-9.0); NEUT # 5.7 10*3/uL (2.3-7.9); NEUT % 74.7 % (47.0-73.0); PLATELET COUNT AUTOMATED 451 10*3/uL (130-400); RED BLOOD COUNT 3.83 10*6/uL (4.10-5.10); RED CELL DISTRI WIDTH 13.9 % (0-14.5); WHITE BLOOD COUNT 7.6 10*3/uL (4.8-10.8)
[2018-04-16 07:40] LABS: HEMATOCRIT 33.9 % (37.0-47.0); HEMOGLOBIN 11.4 g/dl (12.0-16.0)
[2018-04-16 07:55] LABS: ALBUMIN 3.1 gm/dl (3.1-4.5); ALKALINE PHOSPHATASE 123 U/L (45-117); BUN 10 mg/dl (7-24); CHLORIDE 103 mmol/L (98-107); CREATININE 0.79 mg/dL (0.55-1.02); PHOSPHOROUS 4.8 mg/dL (2.5-4.9); SGOT/AST 8 IU/L (3-35); SGPT/ALT 19 U/L (12-78); SODIUM 138 mmol/L (136-145); TOTAL PROTEIN 6.3 gm/dL (6.4-8.2)
[2018-04-16 07:56] LABS: POTASSIUM 3.9 mmol/L (3.5-5.1)
--- NOTE | 2018-04-16 08:58 | NUR ---
Patient waiting on pain medications from nurse. Patient reports that Dr. Orlando was in to see her and is going to decide on course of back/ sterum pain. Patient uncertain if she will have more surgery. OTR will recheck at a later time. Spring Recinos OTR/L
--- NOTE | 2018-04-16 09:40 | NUR ---
PATIENT MEDICATED WITH NORCO FOR C/O 12/05 BACK PAIN. WILL MONITOR EFFECTIVENSS.
--- NOTE | 2018-04-16 10:40 | NUR ---
PRN NORCO EFFECTIVE ZOIE BACK PAIN.
--- NOTE | 2018-04-16 10:48 | NUR ---
PATIENT REMOVED FROM CARDIAC MONTIOR PER ORDER. MONITOR PLACED IN BIN.
--- NOTE | 2018-04-16 11:01 | NUR ---
Compressed Gas Tester in to talk to patient. Patient states lives at HOME with ALONE. There are NO steps in the home. Physician: Tonie FINCH Pharmacy: [facility]: [facility] WAS SET UP LAST ADMISSION BUT PT NEVER ANSWERED DOOR WHEN THEY WENT TO SEE HER Patient's level of ADLs: INDEPENDENT Patient has working utilities: YES DME: [employer] Follow-up physician's appointment after d/c: WILL BE MADE BY HOSPITALIST NURSE DIRECTOR ON DISCHARGE Does patient want to access PORTAL?: NO Discharge plan PT STATES SHE PLANS TO GO HOME AND WANTS OV ON DISCHARGE. ORDER RECIEVED AND REFERRAL WILL BE FAXED. NO OTHER NEEDS AT THIS TIME. WILL CONTINUE TO FOLLOW. WILL CONTINUE TO FOLLOW.. GRISEL GUNTER
[2018-04-16 12:00] VITALS: BP 93/62
--- NOTE | 2018-04-16 12:55 | NUR ---
Hep Lock discontinued TO RAN. Site symptomatic, PATRICIO & LEAKING AT SITE. Pressure applied. Sterile dressing applied. JONAS VELOZ
--- NOTE | 2018-04-16 12:55 | NUR ---
IV started right forearm with #22 angiocath after 0 attempts. The IV site was prepped with Chloraprep. Heparin lock attached. Sterile dressing applied. Patient tolerated precedure well. Procedure performed according to [facility] policy & procedure. JONAS VELOZ
--- NOTE | 2018-04-16 14:06 | NUR ---
PATIENT MEDICATED WITH NORCO FOR C/O 6/10 BACK PAIN. WILL MONITOR.
--- NOTE | 2018-04-16 15:05 | NUR ---
INFORMED PHARM VANESSANAT PATIENTS KATIA IS STILL NOT AVAILABLE ON FLOOR AND REQUESTED AGAIN. MAGUI STATED HE WOULD LOOK INTO IT.
--- NOTE | 2018-04-16 15:06 | NUR ---
PRN NORCO EFFECTIVE FOR BACK PAIN.
[2018-04-16 16:00] VITALS: BP 92/61
--- NOTE | 2018-04-16 18:26 | NUR ---
PATIENT MEDICATED FOR C/O BACK PAIN 11/04 WITH NORCO. WILL MONITOR EFFECTIVENESS.
--- NOTE | 2018-04-16 19:26 | NUR ---
PRN NORCO EFFECTIVE.
[2018-04-16 20:00] VITALS: BP 100/55
--- NOTE | 2018-04-16 22:07 | NUR ---
PATIENT MEDICATED WITH AMBIEN FOR C/O INSOMINA. WILL MONITOR.
--- NOTE | 2018-04-16 22:44 | NUR ---
PATIENT MEDICATED WITH NORCO FOR 8/10 BACK PAIN. WILL MONITOR.
[2018-04-17] VITALS: BP 94/50
--- NOTE | 2018-04-17 04:10 | NUR ---
PATIENT MEDICATED WITH PRN NORCO ORDERED FOR C/O BACK/CHEST PAIN RATED 9/10
[2018-04-17 06:39] LABS: BASO % 0.1 % (0.0-1.0); HEMATOCRIT 31.8 % (37.0-47.0); HEMOGLOBIN 10.5 g/dl (12.0-16.0); LYMPH # 0.7 10*3/uL (1.3-4.4); LYMPH % 7.4 % (27.0-41.0); MEAN CORPUSCULAR HGB 30.3 pg (27.0-31.0); MEAN PLATELET VOLUME 10.2 fl (9.6-12.3); MONO # 0.4 10*3/uL (0.1-1.0); MONO % 3.5 % (3.0-9.0); NEUT # 8.8 10*3/uL (2.3-7.9); NEUT % 88.6 % (47.0-73.0); PLATELET COUNT AUTOMATED 361 10*3/uL (130-400); RED BLOOD COUNT 3.47 10*6/uL (4.10-5.10); RED CELL DISTRI WIDTH 14.2 % (0-14.5)
[2018-04-17 06:42] LABS: MEAN CELL VOLUME 91.6 fl (81.0-99.0)
[2018-04-17 07:00] LABS: CHLORIDE 108 mmol/L (98-107); CREATININE 0.81 mg/dL (0.55-1.02); SODIUM 143 mmol/L (136-145)
[2018-04-17 07:01] LABS: BUN 20 mg/dl (7-24)
[2018-04-17 08:00] VITALS: BP 106/66
--- NOTE | 2018-04-17 11:19 | NUR ---
PT HAS [facility] SET UP AND THEY ARE TO START SERVICES 04/18 PER KANDICE FORM [facility]. WILL CONTINUE TO FOLLOW.
[2018-04-17 12:00] VITALS: BP 121/69
--- NOTE | 2018-04-17 12:16 | NUR ---
DR. STAUFFER NOTIFIED OF CONSULT.
--- NOTE | 2018-04-17 13:00 | NUR ---
Occupational Therapy offered, but patient reports she does not need any therapy. She does verbalize that her back and chest hurt and it is a struggle to walk but she manages. She says that she needs to live in a different house as she is unable to manage in a 2 fl home. Discharge OT as patient has declined services. Spring Recinos OTR/L
[2018-04-17 16:00] VITALS: BP 151/72
[2018-04-17 20:00] VITALS: BP 150/69
--- NOTE | 2018-04-17 21:46 | NUR ---
PATIENT MEDICATED WITH PRN AMBIEN ORDERD FOR C/O INSOMNIA.
[2018-04-18] VITALS: BP 146/66
--- NOTE | 2018-04-18 07:58 | NUR ---
PATIENT COMPLAINING OF BACK AND STERNAL PAIN. REFUSING TO TRY TYLENOL OR MOTRIN AT THIS TIME. FLEXERIL 10MG GIVEN.
[2018-04-18 08:00] VITALS: BP 150/90
--- NOTE | 2018-04-18 09:00 | NUR ---
PATIENT STILL COMPLAINING OF PAIN. DISCUSSED IT WITH PHYSICIAN. NO NEW ORDERS RECEIVED.
[2018-04-18 12:00] VITALS: BP 134/82
--- NOTE | 2018-04-18 12:30 | NUR ---
DR FANG MACKEY NOTIFIED OF INABILITY TO START IV AFTER MULTIPLE TIMES. PATIENT IS REFUSING TO HAVE ANY OTHER TYPES OF LINES PLACED OTHER THAN IV.
[2018-04-18 16:00] VITALS: BP 129/64
[2018-04-18 20:00] VITALS: BP 164/78
[2018-04-19] VITALS: BP 137/61
[2018-04-19 07:05] LABS: HEMATOCRIT 33.4 % (37.0-47.0); HEMOGLOBIN 10.6 g/dl (12.0-16.0); LYMPH # 0.6 10*3/uL (1.3-4.4); LYMPH % 7.6 % (27.0-41.0); MEAN CORPUSCULAR HGB 29.2 pg (27.0-31.0); MEAN CORPUSCULAR HGB CONC 31.7 g/dl (33.0-37.0); MEAN PLATELET VOLUME 10.7 fl (9.6-12.3); MONO # 0.3 10*3/uL (0.1-1.0); MONO % 3.9 % (3.0-9.0); NEUT % 87.7 % (47.0-73.0); PLATELET COUNT AUTOMATED 290 10*3/uL (130-400); RED BLOOD COUNT 3.63 10*6/uL (4.10-5.10); RED CELL DISTRI WIDTH 13.7 % (0-14.5)
[2018-04-19 07:16] LABS: BUN 19 mg/dl (7-24); CHLORIDE 104 mmol/L (98-107); POTASSIUM 4.2 mmol/L (3.5-5.1); SODIUM 141 mmol/L (136-145)
[2018-04-19 07:55] VITALS: BP 160/98
--- NOTE | 2018-04-19 08:10 | NUR ---
Lisinonpril given early for elevated blood pressure. See vitals.
--- NOTE | 2018-04-19 10:10 | NUR ---
Per patient request contacted Dr. Villareal for additional pain medication. See new orders.
[2018-04-19 10:31] VITALS: BP 158/88
--- NOTE | 2018-04-19 11:50 | NUR ---
Scheduled Percocet given for back pain. Patient rates pain 9/10. Will monitor.
[2018-04-19 12:00] VITALS: BP 153/92
--- NOTE | 2018-04-19 12:30 | NUR ---
Spoke with pharmacist regarding note attached to Morphine order and previous note stating patient had difficulty breathing the last time she was given Morphine. Patient stated "I haven't had Morphine in 35yrs!" "I've never had trouble breathing with Morphine." Pharmacist released med order. Patient satisfied, I told her we are just being cautious.
--- NOTE | 2018-04-19 13:18 | NUR ---
Morphine given per patient request for back pain rated 9/10. Patient moans out with movement. Will monitor.
--- NOTE | 2018-04-19 14:00 | NUR ---
Morphine effective. Patient satisfied.
[2018-04-19 16:00] VITALS: BP 156/79
--- NOTE | 2018-04-19 16:37 | NUR ---
Patient up ambulating in hallway. States she is feeling better.
--- NOTE | 2018-04-19 17:23 | NUR ---
Scheduled Percocet given for chronic back pain. Patient rated pain 9/10. She stated it started hurting again when morphine wore off. Will monitor.
--- NOTE | 2018-04-19 18:23 | NUR ---
Morphine given per patient request for chronic back pain rated 9/10. Percocet not effective. Will continue to monitor.
--- NOTE | 2018-04-19 18:27 | NUR ---
Spoke with Dr. Villareal due to patient needing something for anxiety for MRI in the morning. See new orders.
[2018-04-19 20:00] VITALS: BP 157/65
[2018-04-20] VITALS (8 sets, daily range): BP systolic 125–190; BP diastolic 68–96
[2018-04-20 06:34] LABS: BASO % 0.1 % (0.0-1.0); HEMOGLOBIN 10.8 g/dl (12.0-16.0); LYMPH # 1.7 10*3/uL (1.3-4.4); LYMPH % 15.9 % (27.0-41.0); MEAN CELL VOLUME 93.2 fl (81.0-99.0); MEAN CORPUSCULAR HGB 30.5 pg (27.0-31.0); MEAN CORPUSCULAR HGB CONC 32.7 g/dl (33.0-37.0); MEAN PLATELET VOLUME 9.7 fl (9.6-12.3); MONO # 0.8 10*3/uL (0.1-1.0); MONO % 6.9 % (3.0-9.0); NEUT # 8.4 10*3/uL (2.3-7.9); NEUT % 76.4 % (47.0-73.0); PLATELET COUNT AUTOMATED 335 10*3/uL (130-400); RED BLOOD COUNT 3.54 10*6/uL (4.10-5.10); RED CELL DISTRI WIDTH 13.9 % (0-14.5); WHITE BLOOD COUNT 10.9 10*3/uL (4.8-10.8)
[2018-04-20 06:52] LABS: BUN 25 mg/dl (7-24); CHLORIDE 103 mmol/L (98-107); CREATININE 0.87 mg/dL (0.55-1.02); POTASSIUM 4.5 mmol/L (3.5-5.1); SODIUM 139 mmol/L (136-145)
--- NOTE | 2018-04-20 08:04 | NUR ---
Requested and medicated with Morphine at 2230 for complaints of back and chest pain rated a 7/10, and Ambien to aid sleep. Morphine minimally effective. Requested and medicated at 0310 with Morphine for continued pain 7/10. Ativan given to relieve anxiety and allow to get MRI testing. Will continue to monitor.
--- NOTE | 2018-04-20 09:40 | NUR ---
MORHINE 2MG IV GIVEN PER PATIENT REQUEST FOR BACK PAIN RATING AN 8/10 ON PAINSCALE.
--- NOTE | 2018-04-20 10:30 | NUR ---
PATIENT STATES THAT MORPHINE WAS EFFECTIVE.
--- NOTE | 2018-04-20 13:31 | NUR ---
MORPHINE 2MG IV GIVEN PER PATIENT REQUEST FOR BACK PAIN RATING AN 8/10.
--- NOTE | 2018-04-20 16:24 | NUR ---
INTO SEE PT. PT STILL C/O PAIN. PT WAS REMINDED OF UP COMING PAIN MEDS. ASSESSED. PT HAD NO OTHER COMPLAINTS. WILL CONTINUE TO MONITOR PT
--- NOTE | 2018-04-20 18:03 | NUR ---
INTO SEE PT. PT WAS TREATED WITH PRN MORPHINE. PT STATES IMMEDIAT EFFECT. NEW DOSE TIME WAS WRITTEN DOWN ON BOARD. WILL CONTINUE TO MONITOR PT.
--- NOTE | 2018-04-20 18:51 | NUR ---
INTO SEE PT. PT STATES THE MORPHINE OVERALL HAS HELPED A LITTLE BIT. SHE FEELS SLIGHTLY BETTER. WILL CONTINUE TO MONITOR PT
--- NOTE | 2018-04-20 19:38 | NUR ---
PATIENT REQUESTING IV IN RAC BE FLUSHED DUE TO SEEING SOME DRIED BLOOD AROUND IV SITE. IV FLUSHED WITHOUT ISSUE AND PATIENT DENIES ANY PAIN/DISCOMFORT. NO LEAKING NOTED. NO OTHER COMPLAINTS VOICED AT THIS TIME. WILL MONITOR. CALL LIGHT LEFT IN REACH. BED LOCKED IN LOW POSITION.
--- NOTE | 2018-04-20 21:46 | NUR ---
IV MORPHINE ADMINISTERED SLOWLY PER PRN ORDER FOR C/O BACK PAIN 12/05. WILL MONITOR EFFECTIVENESS. CALL LIGHT LEFT IN REACH.
--- NOTE | 2018-04-20 23:00 | NUR ---
PATIENT'S BLOOD PRESSURE 190/96 MANUALLY AT THIS TIME. PATIENT STATES SHE IS STILL IN A GREAT DEAL OF PAIN. STATES EARLIER MORPHINE HELPED "A LITTLE" BUT SHE STILL RATES PAIN IN BACK 12/05. SCHEDULED PO PERCOCET ADMINISTERED EARLY AT THIS TIME. PO AMBIEN ALSO ADMINISTERED FOR PATIENT'S C/O INSOMNIA. WILL REASSESS BLOOD PRESSURE AND PAIN WITHIN 30 MINUTES. WILL NOTIFY MD IF BP DOES NOT IMPROVE WITH PAIN MANAGEMENT. PATIENT EDUCATED ON S/S TO NOTIFY RN AND ENCOURAGED TO USE CALL LIGHT IF NEW SYMPTOMS APPEAR. BED LOCKED IN LOW POSITION. CALL LIGHT IN REACH.
--- NOTE | 2018-04-20 23:56 | NUR ---
PATIENT STATES EARLIER MEDICATIONS WERE EFFECTIVE IN EASING PAIN. PATIENT'S BP NOW 156/84 MANUALLY. WILL CONTINUE TO MONITOR. CALL LIGHT LEFT IN REACH.
[2018-04-21] VITALS: BP 185/87
[2018-04-21 02:30] VITALS: BP 168/84
--- NOTE | 2018-04-21 02:50 | NUR ---
IV MORPHINE ADMINISTERED PER PRN ORDER FOR C/O BACK PAIN 01/05. WILL MONITOR EFFECTIVENESS. PATIENT ALSO REQUESTING INFORMATION ON VERTEBROPLASTY PROCEDURE SCHEDULED FOR 04/22. EDUCATIONAL HANDOUT PRINTED AND GIVEN TO PATIENT AT THIS TIME. CALL LIGHT LEFT IN REACH.
--- NOTE | 2018-04-21 06:12 | NUR ---
SCHEDULED PO PERCOCET ADMINISTERED PER ORDER FOR C/O PAIN IN BACK 01/05. WILL MONITOR. CALL LIGHT LEFT IN REACH.
--- NOTE | 2018-04-21 07:08 | NUR ---
PATIENT SITTING UP IN BED AT THIS TIME. NO NEEDS OR CONCERNS. BED IS IN LOWEST POSITION WITH WHEELS LOCKED. CALL LIGHT IS WITHIN REACH. WILL CONTINUE TO MONITOR. ENCOURAGED TO USE CALL LIGHT FOR NEEDS.
--- NOTE | 2018-04-21 07:29 | NUR ---
IV MORPHINE ADMINISTERED SLOWLY PER PRN ORDER FOR C/O BACK PAIN 12/05. PATIENT STATES EARLIER PERCOCET HELPED "TAKE THE EDGE OFF." WILL MONITOR. CALL LIGHT IN REACH.
[2018-04-21 08:00] VITALS: BP 154/89
--- NOTE | 2018-04-21 11:20 | NUR ---
PRN MORPHINE GIVEN FOR COMPLAINTS OF BACK PAIN RATED 7/10. WILL EVALUATE EFFECTIVENESS. CALL LIGHT IS WITHIN REACH.
[2018-04-21 12:00] VITALS: BP 142/83
--- NOTE | 2018-04-21 12:37 | NUR ---
PER PATIENT MORPHINE EFFECTIVE AT THIS TIME. WILL CONTINUE TO MONITOR.
[2018-04-21 16:00] VITALS: BP 162/86
--- NOTE | 2018-04-21 19:30 | NUR ---
PT AWAKE AND AMBULATING IN ROOM AT THIS TIME. NO C/O VOICED AT PRESENT TIME.
[2018-04-21 20:00] VITALS: BP 157/76
--- NOTE | 2018-04-21 21:30 | NUR ---
PT MEDICATED W/MORPHINE FOR C/O CHRONIC BACK PAIN 12/05. IV DRSG CHANGED PER PT REQUEST. IV FLUSHES WITHOUT DIFF. CALL LIGHT IN REACH.
--- NOTE | 2018-04-21 22:00 | NUR ---
PT AMBULATING IN HALLWAY AT THIS TIME. PRN MORPHINE EFFECTIVE FOR PAIN RELIEF.
--- NOTE | 2018-04-21 22:14 | NUR ---
PT MEDICATED W/AMBIEN PER PT REQUEST TO HELP PROMOTE SLEEP. CALL LIGHT IN REACH. LIGHTS TURNED OFF.
--- NOTE | 2018-04-21 23:00 | NUR ---
PT RESTING QUIETLY IN BED W/EYES CLOSED. PRN AMBIEN EFFECTIVE.
[2018-04-22] VITALS: BP 155/70
--- NOTE | 2018-04-22 02:56 | NUR ---
PT MEDICATED W/MORPHINE FOR C/O CHRONIC BACK PAIN 12/05. WILL MONITOR FOR EFFECIVENESS.
--- NOTE | 2018-04-22 05:17 | NUR ---
24 HR chart check completed.
[2018-04-22 09:33] VITALS: BP 176/86
[2018-04-22 10:41] LABS: MEAN CELL VOLUME 92.7 fl (81.0-99.0); MEAN CORPUSCULAR HGB 29.3 pg (27.0-31.0); MEAN CORPUSCULAR HGB CONC 31.6 g/dl (33.0-37.0); MEAN PLATELET VOLUME 9.6 fl (9.6-12.3); PLATELET COUNT AUTOMATED 382 10*3/uL (130-400); RED CELL DISTRI WIDTH 13.7 % (0-14.5); WHITE BLOOD COUNT 12.9 10*3/uL (4.8-10.8)
--- NOTE | 2018-04-22 10:46 | NUR ---
PT STATES SHE PLANS TO RETURN HOME WITH [facility] ON DISCHARGE. ALSO STATES SHE WANTS TO LOOK FOR NEW HOUSING HER PRESENT APPARTMENT HAS MANY STEPS AND SHE HAS DIFFICULTY GETTING UP THEM. STATES SHE HAS NOT BEEN ABLE TO FILL OUT APPLICATIONS FOR HOUSING YET DUE TO BEING IN HOSPITAL. WILL CONTINUE TO FOLLOW.
[2018-04-22 11:07] LABS: PLATELET SUFFICIENCY NORMAL (NORMAL); TOTAL CELLS COUNTED 100 #CELLS
--- NOTE | 2018-04-22 11:56 | NUR ---
Patient is discharged to return to [facility] short term. transportation scheduled for 2 pm with [place], nursing notified.
[2018-04-22 12:00] VITALS: BP 153/79
[2018-04-22 13:12] LABS: ACT PARTIAL THROMBO TIME 18.4 SECONDS (20.8-31.5); INTERNATIONAL NORM RATIO 0.9 (2.0-3.5)
--- NOTE | 2018-04-22 13:37 | NUR ---
NUMBER TO [facility] GIVEN TO PT.
[2018-04-22 16:00] VITALS: BP 148/75
[2018-04-22 20:00] VITALS: BP 136/77
--- NOTE | 2018-04-22 20:45 | NUR ---
INTO SEE PT. PT COMPLAINING OF PAIN. GIVING 2200 MEDS EARLY FOR PAIN. WILL MONITOT PT
--- NOTE | 2018-04-22 23:30 | NUR ---
INTO SEE PT. PT ASKING FOR PAIN MEDS AND SLEEP AID. PT HAS RECIEVED BOTH. WILL CONTINUE TO MONITOR PT
[2018-04-23] VITALS: BP 138/74
--- NOTE | 2018-04-23 07:40 | NUR ---
PT AWAKE. BEDSIDE REPORT RECEIVED FROM IAN VILLALPANDO. NO PT QUESTIONS/COMPLAINTS AT THIS TIME
[2018-04-23 08:00] VITALS: BP 174/73
--- NOTE | 2018-04-23 09:10 | NUR ---
24 HR CHART CHECK COMPLETE
[2018-04-23] MEDS ORDERED: OXYCONTIN10 M1 PO (09:11)
[2018-04-23] MEDS ORDERED: OXYCODONE HCL10 M1 PO (09:11)
[2018-04-23] MEDS ORDERED: PREDNISONE10 MG PO (09:11)
[2018-04-23] MEDS ORDERED: AVPAK AZITHROM250 M1 PO (09:15)
--- NOTE | 2018-04-23 10:00 | NUR ---
Discharge instructions reviewed with patient/family. Patient receptive and verbalizes understanding. Follow-up care arranged. Written instructions given to patient/family. PRINTED SCRIPTS GIVEN TO PT VIRGIE HERRERA
[2018-06-04] MEDS ORDERED: ESCITALOPRAM OX10 MG PO (21:26)
== END 2018-04-23 10:01 | disposition home health service (06) | DRG 191 ==
LOC: ED 08:11 → 5E 10:31 → EDHOLD 10:31 → 5E 10:52
PROVIDERS: Emergency Medicine; Family Medicine; Internal Medicine; Registered Nurse; ADMIT Internal Medicine
DX: J44.1 Chronic obstructive pulmonary disease with (acute) exacerbation (principal); J96.11 Chronic respiratory failure with hypoxia; E44.0 Moderate protein-calorie malnutrition; M48.54XA Collapsed vertebra, not elsewhere classified, thoracic region, initial encounter for fracture; E87.6 Hypokalemia; Z99.81 Dependence on supplemental oxygen; R07.1 Chest pain on breathing; Z88.9 Allergy status to unspecified drugs, medicaments and biological substances; Z88.1 Allergy status to other antibiotic agents; G89.29 Other chronic pain; F32.9 Major depressive disorder, single episode, unspecified; F41.1 Generalized anxiety disorder; Z87.81 Personal history of (healed) traumatic fracture; Z85.41 Personal history of malignant neoplasm of cervix uteri; Z90.49 Acquired absence of other specified parts of digestive tract; Z98.42 Cataract extraction status, left eye; Z98.41 Cataract extraction status, right eye; Z83.6 Family history of other diseases of the respiratory system; Z82.49 Family history of ischemic heart disease and other diseases of the circulatory system; Z82.3 Family history of stroke; Z83.3 Family history of diabetes mellitus; M54.9 Dorsalgia, unspecified; Z71.6 Tobacco abuse counseling; Z90.710 Acquired absence of both cervix and uterus; F17.200 Nicotine dependence, unspecified, uncomplicated; E55.9 Vitamin D deficiency, unspecified; J20.9 Acute bronchitis, unspecified; Z68.23 Body mass index [BMI] 23.0-23.9, adult

== ENCOUNTER 2018-05-04 15:17 | Emergency (ER) | payer OTHER ==
[~2018-05-04] VITALS: Wt 63.5 kg
[~2018-05-04 15:17] MED LIST changes: +OXYCODONE HCL10 M1 PO; +OXYCONTIN10 M1 PO
[2018-05-04 19:36] VITALS: BP 156/88
[2018-06-04] MEDS ORDERED: ESCITALOPRAM OX10 MG PO (21:26)
== END 2018-05-04 19:37 | disposition home or self-care (01) ==
LOC: ED 15:17
DX: G89.29 Other chronic pain (principal); M54.5 Low back pain; M54.6 Pain in thoracic spine; J44.9 Chronic obstructive pulmonary disease, unspecified; G43.909 Migraine, unspecified, not intractable, without status migrainosus; I10 Essential (primary) hypertension; Z88.1 Allergy status to other antibiotic agents; F17.200 Nicotine dependence, unspecified, uncomplicated; Z88.8 Allergy status to other drugs, medicaments and biological substances; Z79.2 Long term (current) use of antibiotics; Z79.899 Other long term (current) drug therapy; Z90.710 Acquired absence of both cervix and uterus; Z90.49 Acquired absence of other specified parts of digestive tract

== ENCOUNTER 2018-05-05 08:12 | Inpatient (IN) | payer OTHER ==
[~2018-05-05] VITALS: Ht 162.5 cm; Wt 67.6 kg
[2018-05-05] VITALS (8 sets, daily range): BP systolic 122–155; BP diastolic 61–90
[2018-05-05 08:50] LABS: BASO # 0.1 10*3/uL (0.0-0.1); BASO % 0.4 % (0.0-1.0); EOS % 0.2 % (1.0-4.0); HEMATOCRIT 43.1 % (37.0-47.0); HEMOGLOBIN 14.3 g/dl (12.0-16.0); LYMPH # 1.7 10*3/uL (1.3-4.4); LYMPH % 10.2 % (27.0-41.0); MEAN CELL VOLUME 91.7 fl (81.0-99.0); MEAN CORPUSCULAR HGB 30.4 pg (27.0-31.0); MEAN CORPUSCULAR HGB CONC 33.2 g/dl (33.0-37.0); MEAN PLATELET VOLUME 9.2 fl (9.6-12.3); MONO # 0.7 10*3/uL (0.1-1.0); MONO % 4.2 % (3.0-9.0); NEUT # 13.8 10*3/uL (2.3-7.9); NEUT % 84.6 % (47.0-73.0); PLATELET COUNT AUTOMATED 437 10*3/uL (130-400); RED CELL DISTRI WIDTH 15.2 % (0-14.5); WHITE BLOOD COUNT 16.3 10*3/uL (4.8-10.8)
--- NOTE | 2018-05-05 08:50 | NUR ---
PT MEDICATED PER EMAR FOR PAIN. CONT PULSE OX IN PLACE. BED RAILS UP. CALL COKER WITHIN REACH. WILL RE-ASSESS PAIN.
--- NOTE | 2018-05-05 08:58 | NUR ---
3 LPM NASAL O2 APPLIED DUE TO BEING MEDICATED WITH FENTANYL. PT IS RESTING MORE COMFORTABLY IN BED AT THIS TIME.
[2018-05-05 09:05] LABS: ALKALINE PHOSPHATASE 103 U/L (45-117); BUN 9 mg/dl (7-24); CHLORIDE 102 mmol/L (98-107); POTASSIUM 4.2 mmol/L (3.5-5.1); SGOT/AST 14 IU/L (3-35); SGPT/ALT 34 U/L (12-78); SODIUM 138 mmol/L (136-145); TOTAL PROTEIN 7.6 gm/dL (6.4-8.2)
--- NOTE | 2018-05-05 09:23 | NUR ---
PT RESTING COMFORTABLY IN BED. RATES PAIN 6/10. PT HAS BEEN SLEEPIGN ON AND OFF SINCE BEING MEDICATED FOR PAIN. WILL BE ADMITTED.
--- NOTE | 2018-05-05 09:48 | NUR ---
PT STABLE AND READY FOR TRANSPORT TO INPATIENT BED.
--- NOTE | 2018-05-05 10:50 | NUR ---
MSADMTime: N A 57 year old FEMALE admitted to 4E under services of MICKI LARA DO. Pt. arrived via bed from ER. Chief complaint: BACK PAIN. FROYLAN TRAVIS
[2018-05-05 12:47] LABS: INTERNATIONAL NORM RATIO 0.9 (2.0-3.5)
--- NOTE | 2018-05-05 15:28 | NUR ---
MORPHINE GIVEN FOR C/O BACK PAIN. RATES 10/10 ON PAIN SCALE. WILL MONITOR.
--- NOTE | 2018-05-05 16:30 | NUR ---
MORPHINE EFFECTIVE PER PT.
--- NOTE | 2018-05-05 20:39 | NUR ---
PT AWAKE AND RESTING IN BED. SHE STATES THAT SHE IS HAVING BACK PAIN. PRN MORPHINE ADMINISTERED. BED LOW, CALL LIGHT WITHIN REACH. WILL CONTINUE TO MONITOR.
--- NOTE | 2018-05-05 21:00 | NUR ---
PT REQUESTED PRN MORPHINE. MORPHINE WAS ADMINISTERED WHICH RESULTED IN NAUSEA. PRN PHENERGAN ADMINISTERED.
--- NOTE | 2018-05-05 21:18 | NUR ---
PT REQUESTED SLEEP MEDICATION. PRN AMBIEN ADMINISTERED. WILL CONTINUE TO MONITOR.
--- NOTE | 2018-05-05 21:45 | NUR ---
PT STATES THAT THE NAUSEA IS GONE AND THAT THE PHENERGAN IS EFFECTIVE. BED LOW, CALL LIGHT WITHIN REACH.
--- NOTE | 2018-05-05 22:00 | NUR ---
PT RESTING COMFORTABLY. AMBIEN EFFECTIVE.
--- NOTE | 2018-05-05 22:12 | NUR ---
PATIENT MEDICATED WITH PRN AMBIEN ORDERD FOR C/O INSOMNIA.
[2018-05-06] VITALS: BP 86/50
--- NOTE | 2018-05-06 00:15 | NUR ---
DR SÁNCHEZ CALLED REGARDING PTS BLOOD PRESSURE AND HEART RATE. BP WAS 92/[address] SÁNCHEZ SAID TO CONTINUE TO MONITOR PATIENT AND HOLD ANY FURTHER DOSES OF PRN MORPHINE. WILL CONTINUE TO MONITOR. CALL LIGHT WITHIN REACH.
[2018-05-06 07:09] LABS: BASO % 0.5 % (0.0-1.0); EOS % 0.3 % (1.0-4.0); HEMATOCRIT 39.1 % (37.0-47.0); HEMOGLOBIN 12.6 g/dl (12.0-16.0); LYMPH # 1.7 10*3/uL (1.3-4.4); MEAN CELL VOLUME 91.8 fl (81.0-99.0); MEAN CORPUSCULAR HGB 29.6 pg (27.0-31.0); MEAN CORPUSCULAR HGB CONC 32.2 g/dl (33.0-37.0); MEAN PLATELET VOLUME 9.4 fl (9.6-12.3); MONO # 0.5 10*3/uL (0.1-1.0); MONO % 6.2 % (3.0-9.0); NEUT # 6.3 10*3/uL (2.3-7.9); NEUT % 72.7 % (47.0-73.0); PLATELET COUNT AUTOMATED 375 10*3/uL (130-400); RED BLOOD COUNT 4.26 10*6/uL (4.10-5.10); RED CELL DISTRI WIDTH 15.4 % (0-14.5); WHITE BLOOD COUNT 8.7 10*3/uL (4.8-10.8)
[2018-05-06 07:42] LABS: CHLORIDE 101 mmol/L (98-107); SODIUM 139 mmol/L (136-145)
[2018-05-06 07:53] LABS: ALBUMIN 3.4 gm/dl (3.1-4.5); ALKALINE PHOSPHATASE 89 U/L (45-117); CHOLESTEROL 75 mg/dL (<200); CREATININE 0.83 mg/dL (0.55-1.02); HDL CHOLESTEROL 41 mg/dl (40-60); LDL CHOLESTEROL 22 mg/dL (9-159); PHOSPHOROUS 4.2 mg/dL (2.5-4.9); SGOT/AST 13 IU/L (3-35); SGPT/ALT 28 U/L (12-78); THYROID STIM HORMONE (HS) 0.784 uIU/ml (0.358-4.75); TOTAL PROTEIN 6.6 gm/dL (6.4-8.2); TRIGLYCERIDES 60 mg/dl (<150); VLDL CHOLESTEROL 12 mg/dL (6-40)
[2018-05-06 07:54] LABS: BUN 19 mg/dl (7-24)
[2018-05-06 08:00] VITALS: BP 102/66; BP 98/60
[2018-05-06 08:42] LABS: VITAMIN D, 25-HYDROXY 34.6 ng/mL (30-100)
--- NOTE | 2018-05-06 09:00 | NUR ---
Adzing And Boring Machine Operator in to talk to patient. Patient states lives at home with alone. There are few steps in the home. Physician: sandi aquino [facility]acy: [facility] Home health services: none Patient's level of ADLs: MINIMAL ASSIST Patient has working utilities: all working DME: oxygen Follow-up physician's appointment after d/c: will be made by hospitalist nurse director upon discharge Does patient want to access PORTAL?: no Discharge plan discussed with patient, patient lives at home, states she is slow to get around due to back pain, patient states she is being fitted for a back brace by Dr King. discussed with her a short term long-term for rehab prior to going back home, patient was inagreement with this, stated it has become difficult for her to care for herself. given choice of facilities, patient chose [facility] as first choice and [facility] as second choice, transportation planner will send referrals to both facilities for when patient is medically stable for discharge. ISAC EDGAR
[2018-05-06 10:04] VITALS: BP 106/62
[2018-05-06 11:08] VITALS: BP 140/72
--- NOTE | 2018-05-06 11:09 | NUR ---
NOTIFIED THAT PATIENT'S BP 140/72 AFTER IV BOLUS AND SHE IS STILL REQUESTING PAIN MEDICATIONS.
--- NOTE | 2018-05-06 11:57 | NUR ---
PT MEDICATED WITH IV MORPHINE AT THIS TIME PER ORDER FOR COMPLAINTS OF BACK PAIN 12/05. WILL MONITOR.
--- NOTE | 2018-05-06 13:00 | NUR ---
PER PATIENT, PAIN MEDICATION HAS BEEN EFFECTIVE. NO FURTHER COMPLAINTS.
--- NOTE | 2018-05-06 13:17 | NUR ---
Occupational Therapy evaluation completed on 4 with full eval to follow. Precautions include fall risk, severe back pain, limited lower body ADLs and safety in functional mobility. Patient is moderate complexity 93986 via chart review, testing and evaluation. Recommend OT per pOC and SNF to enable return home alone at independent living. Thank you. Spring Recinos OTR/L
--- NOTE | 2018-05-06 14:16 | NUR ---
PHYSICAL THERAPY PAtient evaluated on 4, full evaluation to follow. Continue with PT as per plan of care with fall, signfiicant back pain, multiple compression fractures (not new) pending TLSO and acute debility precautions. Will rquire SNF. PAtient is moderate complexity via chart review, tests and evaluation: 17026. Thank you for this referral. Bárbara Arnold,PT
[2018-05-06 16:00] VITALS: BP 111/81
--- NOTE | 2018-05-06 16:22 | NUR ---
PATIENT MEDICATED WITH MORPHINE AT THIS TIME THROUGH IV FOR COMPLAINTS OF PAIN IN BACK. WILL MONITOR FOR EFFECTIVNESS.
--- NOTE | 2018-05-06 17:40 | NUR ---
PER PATIENT, PRN MEDICATION HAS BEEN EFFECTIVE.
[2018-05-06 20:00] VITALS: BP 119/72
--- NOTE | 2018-05-06 21:24 | NUR ---
PATIENT MEDICATED WITH PRN MORPHINE ORDERD FOR C/O BACK AND HIP PAIN RATED 8/10
--- NOTE | 2018-05-06 22:30 | NUR ---
EARLIER MORPHINE "TOOK THE EDGE OFF" PER PATIENT. STATES IT NEVER WORKS FOR A LONG TIME. WILL CONTINUE TO MONITOR
[2018-05-07] VITALS (7 sets, daily range): BP systolic 99–136; BP diastolic 52–85
--- NOTE | 2018-05-07 01:48 | NUR ---
PATIENT MEDICATED WITH PRN MORPHINE ORDERED FOR C/O BACK PAIN RATED 9/10
--- NOTE | 2018-05-07 03:00 | NUR ---
EARLIER MORPHINE APPEARS EFFECTIVE. PATIENT SLEEPING. RESPIRATIONS EASY/REG ON 2.5L NC. NO S/S OF DISTRESS NOTED. CALL [facility] IN REACH
--- NOTE | 2018-05-07 04:26 | NUR ---
PATIENT MEDICATED WITH PRN PHENERGAN ORDERD FOR C/O NAUSEA.
--- NOTE | 2018-05-07 06:01 | NUR ---
PATIENT MEDICATED WITH PRN MORPHINE ORDERD FOR C/O BACK PAIN RATED 9/10. BP 124/74
--- NOTE | 2018-05-07 09:00 | NUR ---
case management visits with patient, patient will be going to short term halfway when medically stable. senior media planner working on short term placement
--- NOTE | 2018-05-07 09:05 | NUR ---
Patient requested referral to [facility]. Contacted facility faxed referral. Stated if patient is accepted, please start precert. Waiting on review/acceptance
--- NOTE | 2018-05-07 09:51 | NUR ---
PT MEDICATED WITH MORPHINE IV PER ORDER FOR COMPLAINTS OF BACK PAIN 12/05. WILL MONITOR.
--- NOTE | 2018-05-07 09:51 | NUR ---
PHYSICAL THERAPY Patient presented to therapy in supine with head of bed elevated and report of having moderate pain in the mid and low back. Patient agrees to therapy session. Patient was identified by name and . Patient performed supine to sitting at EOB transfer with MIN A X 1. Patient ambulated with MIN A QLIKVIEW DEVELOPER X 1 for 100' x 1 with 2.5 liters of spO2. Patient sat in bedside chair and performed bilateral LE ther ex x 10 reps each in all planes of movement for strengthening the LEs in order to improve patient's functional mobility. Patient was left in sitting position with call light within reach in bedside chair. NO CHAIR ALARM PRESENT. Patient was 1:1 with this ASSISTANT PRODUCE MANAGER for 20 minutes total. Patient is recommended for SNF upon discharge. MACK LINARES ASSISTANT PRODUCE MANAGER
--- NOTE | 2018-05-07 10:20 | NUR ---
MORPHINE HAS BEEN EFFECTIVE PER PT.
--- NOTE | 2018-05-07 11:27 | NUR ---
[facility] stated they are unable to accept this patient as they are out of network with her insurance. Contacted [facility] and faxed referral/ waiting on review, acceptance.
--- NOTE | 2018-05-07 12:47 | NUR ---
Patient has been accepted to [facility] and they are starting precert today. Waiting for auth.
--- NOTE | 2018-05-07 13:35 | NUR ---
PT MEDICATED WITH MOPRHINE AT THIS TIME PER ORDER FOR C/O BACK PAIN. WILL MONITOR FOR EFFECTIVENESS.
--- NOTE | 2018-05-07 14:15 | NUR ---
OT NOTE Pt was seen this P.M. 1:1 for 19 minute Ot session. Upon arrival pt was supine in bed, pt identified by name and . Pt had reports of 9/10 mid/low back pain. Pt transferred supine to sit EOB with SBA. Functional mobility then completed into the bathroom with [facility] where she transferred on/off standard commode with SBA and use of grab bar. Throughout mobility pt had two LOB that occured that required Noemi to correct. Pt then returned to EOB where she was educated on log roll technique, pt trialed and was able to complete with SBA and had reports that it made it feel better getting into bed with less twisting. Pt was left supine in bed with call light in hand and tray table in place. Continue with rec D/C plan to SNF. CHELA Michael/Yarelis
--- NOTE | 2018-05-07 14:42 | NUR ---
PHYSICAL THERAPY Patient is in severe pain this PM. Patient cannot participate in therapy this afternoon due to her pain level of 8/10 in mid and low back. Will check back with patient tommorrow. MACK LINARES DRIER OPERATOR HELPER
--- NOTE | 2018-05-07 16:00 | NUR ---
PT'S PAIN MED WAS EFFECTIVE PER PT.
--- NOTE | 2018-05-07 17:20 | NUR ---
PT MEDICATED WITH MORPHINE PER ORDER FOR COMPLAINTS OF BACK PAIN 12/05. WILL MONITOR.
--- NOTE | 2018-05-07 18:00 | NUR ---
PATIENT STATES THAT MORPHINE WAS EFFECTIVE. NO FURTHER COMPLAINTS.
--- NOTE | 2018-05-07 21:54 | NUR ---
PATIENT MEDICATED WITH PRN MORPHINE ORDERED FOR C/O BACK PAIN RATED 8/10
[2018-05-08] VITALS: BP 123/66
--- NOTE | 2018-05-08 02:34 | NUR ---
PATIENT SLEEPING. NO S/S OF DISTRESS NOTED. RESPIRATIONS EASY/REG ON 2L NC. BED IN LOW POSITION, WHEELS LOCKED, CALL LIGHT IN REACH.
--- NOTE | 2018-05-08 03:14 | NUR ---
PATIENT MEDICATED WITH PRN MORPHINE ORDERED FOR C/O BACK PAIN RATED 9/10
--- NOTE | 2018-05-08 05:07 | NUR ---
PATIENT MEDICATED WITH PRN PHENERGAN ORDERED FOR C/O NAUSEA
--- NOTE | 2018-05-08 06:30 | NUR ---
PATIENTS IV LEAKING. DC'D. RESTARTED 22 G IN LEFT ARM.
--- NOTE | 2018-05-08 07:41 | NUR ---
OT Note Pt was seen this A.m. 1:1 for 15 minute OT session. Upon arrival pt was supine in bed, pt identified by name and . Pt had reports of 9/10 mid/low back pain and presented with continous 2L-O2 via NC which she remained on throughout entire session. Pt transferred supine to sit EOB with good carry over of log roll technique previously educated on. Pt completed transfer with SBA and no reports of increased pain. Sit to stand transfer and functional mobility completed into the bathroom with CGA CERTIFIED FINANCIAL PLANNER for safety. There she transferred on/off standard commode with SBA and use of grab bar. Pt then stood sink side while washing her hands and face with SBA, pt was able to tolerate aprox 3-4 minutes of static standing before requiring a seated rest break due to fatigue and pain. Functional mobility completed back to her bed where she transferred sit to supine with SBA and again good carry over of log roll technique. There she was left with call light in hand, tray table in place, and phone in reach. Continue with rec D/C plan to SNF. HCELA Michael/Yarelis
--- NOTE | 2018-05-08 07:58 | NUR ---
[facility] 05[facility]07[facility], waiting on auth.
[2018-05-08 08:00] VITALS: BP 121/70
--- NOTE | 2018-05-08 09:24 | NUR ---
PATIENT MEDICATED WITH MORPHINE PER DRS ORDERS FOR COMPLAINTS OF BACK PAIN AT THIS TIME. PATIENT RATES PAIN 7/10. RN EDUCATED PATIENT SHOP MANAGER LGHIT USE AND PLACED CALL LIGHT WITHIN REACH. RN WILL CONTINUE TO MONITOR THIS PATIENT
--- NOTE | 2018-05-08 10:18 | NUR ---
PHYSICAL THERAPY Patient presented to therapy in standing position at bedside with report of increased pain in low and mid back and into L hip. Patient agrees to therapy session. Patient was identified by name and . Patient performed ambulation with no assistive device and 2 liters of spO2 with Close Supervision for 132' x 1. Patient required 4 standing rest breaks due to fatigue. O2 SATS normal. Patient transferred to bedside chair with SBA. Patient performed bilateral LE ther ex 2 x 10 reps each LE for strengthening in order to facilitate improving patient's functional mobility. Patient reports pain in L hip with hip flexion and hip abduction ,so those exercises stopped or modified. Patient was left in sitting position in bedside chair with call light within reach. Patient was 1:1 with this MOLD COOLER for 23 minutes total. MACK LINARES MOLD COOLER
--- NOTE | 2018-05-08 10:25 | NUR ---
PATIENT STATES THAT EARLIER PAIN MEDICATION WAS NOT EFFECTIVE IN REDUCING PAIN. WOULD LIKE TO HAVE ADDITIONAL PAIN MEDICATION
--- NOTE | 2018-05-08 10:41 | NUR ---
PATIENT MEDICATED WITH NORCO PER DRS ORDERS FOR CONTINUED PAIN IN THE BACK. SEE EMAR. RN WILL MONITOR FOR EFFECTIVENESS
--- NOTE | 2018-05-08 11:45 | NUR ---
PATIENT STATES PAIN MEDICATION HAS HELPED "SLIGHTLY"
[2018-05-08 12:00] VITALS: BP 130/76
--- NOTE | 2018-05-08 13:44 | NUR ---
[facility] stated this patient is ok to go to their facility when she is medically stable for discharge, [facility] has been notified and its approved. CM stating patient must wait until special order back brace arrives.
--- NOTE | 2018-05-08 15:12 | NUR ---
BACK BRACE ARRIVED AND WAS PLACED ONTO PATIENT AT THIS TIME. PATIENT TOLERATING WELL. DENIES OTHER NEEDS AT THIS TIME. RN WILL CONTINUE TO MONITOR
--- NOTE | 2018-05-08 15:26 | NUR ---
PATIENT MEWDICATED PER DRS ORDERS FOR COMPLAINTS OF NAUSEA. RN WILL CONTINUE TO MONITOR
[2018-05-08 16:00] VITALS: BP 116/74
--- NOTE | 2018-05-08 16:30 | NUR ---
PATIENT STATES EARLIER MEDICATION FOR NAUSEA HELPED RELIEVE HER SYMPTOMS. RN WILL CONITNUE TO MONITOR
--- NOTE | 2018-05-08 17:19 | NUR ---
PATIENT MEDICATED WITH MORHPINE PER DRS ORDERS FOR COMPLAINTS OF PAIN TO THE BACK AT THIS TIME. SEE EMAR. RN WILL MONITOR FOR EFFECTIVENESS
--- NOTE | 2018-05-08 19:40 | NUR ---
PT C/O BACK PAIN, RATES IT 01/05. NORCO GIVEN AT THIS TIME PER PT REQUEST. WILL FOLLOW UP WITH PT FOR EFFECTIVENESS OF MED. RESPIRATIONS EASY AND UNLABORED ON 2L OXYGEN VIA NC. CALL LIGHT IN REACH.
[2018-05-08 20:00] VITALS: BP 137/75
--- NOTE | 2018-05-08 20:40 | NUR ---
NORCO EFFECTIVE PER PT. ASSESSMENT COMPLETE AT THIS TIME. WHEEZING AND RHONCHI HEARD UPON AUSCULATATION OF LUNG KEANE. 2L NC IN PLACE. NO EDEMA NOTED. NO COMPLAINTS VOICED AT THIS TIME. CALL LIGHT IN REACH.
--- NOTE | 2018-05-08 21:58 | NUR ---
PT GIVEN MORPHINE 1MG VIA IV PUSH FOR C/O BACK PAIN 01/05. TOLERATED WELL BY PT. WILL MONITOR FOR EFFECTIVENESS. ALL OTHER HS MEDICATIONS GIVEN AT THIS TIME. ALL SAFETY MEASURES IN PLACE. CALL LIGHT IN REACH.
--- NOTE | 2018-05-08 22:58 | NUR ---
MORPHINE EFFECTIVE PER PT.
--- NOTE | 2018-05-08 23:16 | NUR ---
PT GIVEN CARLOIEN PER REQUEST FOR S/S OF INSOMNIA. WILL MONITOR FOR EFFECTIVENESS. RESPIRATIONS EASY. NO S/S OF DISTRESS. CALL LIGHT IN REACH.
[2018-05-09] VITALS: BP 131/66
--- NOTE | 2018-05-09 00:16 | NUR ---
DEBRA EFFECTIVE. PT RESTING AT THIS TIME. RESPIRATIONS EASY. CALL LIGHT IN REACH.
--- NOTE | 2018-05-09 01:08 | NUR ---
24 HR chart check completed.
--- NOTE | 2018-05-09 04:05 | NUR ---
PT C/O BACK PAIN. MORPHINE GIVEN AT THIS TIME. WILL MONITOR. CALL LIGHT IN REACH.
--- NOTE | 2018-05-09 05:10 | NUR ---
PT STATES THAT MORPHINE IS NOT EFFECTIVE. NORCO GIVEN AT THIS TIME. WILL MONITOR FOR EFFECTIVENESS. CALL LIGHT IN REACH.
--- NOTE | 2018-05-09 06:10 | NUR ---
VALERIO EFFECTIVE PER PT.
[2018-05-09 06:46] LABS: BASO % 0.5 % (0.0-1.0); EOS # 0.1 10*3/uL (0.0-0.4); EOS % 1.8 % (1.0-4.0); HEMATOCRIT 35.8 % (37.0-47.0); HEMOGLOBIN 11.3 g/dl (12.0-16.0); LYMPH # 1.4 10*3/uL (1.3-4.4); LYMPH % 22.5 % (27.0-41.0); MEAN CELL VOLUME 93.5 fl (81.0-99.0); MEAN CORPUSCULAR HGB 29.5 pg (27.0-31.0); MEAN CORPUSCULAR HGB CONC 31.6 g/dl (33.0-37.0); MEAN PLATELET VOLUME 9.4 fl (9.6-12.3); MONO # 0.4 10*3/uL (0.1-1.0); MONO % 6.8 % (3.0-9.0); NEUT # 4.2 10*3/uL (2.3-7.9); NEUT % 68.2 % (47.0-73.0); PLATELET COUNT AUTOMATED 300 10*3/uL (130-400); RED BLOOD COUNT 3.83 10*6/uL (4.10-5.10); RED CELL DISTRI WIDTH 14.9 % (0-14.5); WHITE BLOOD COUNT 6.2 10*3/uL (4.8-10.8)
[2018-05-09 06:52] LABS: CREATININE 0.64 mg/dL (0.55-1.02)
[2018-05-09 08:00] VITALS: BP 120/67
--- NOTE | 2018-05-09 10:15 | NUR ---
PHYSICAL THERAPY Patient seen this am 1:1 for therapy visit and was sitting up EOB upon therapist arrival. Patient presents with 8/10 mid Thoracic / back pain and is able to Kei / Doff TLSO brace with Supervision. Patient also with contiuous O2-2L via NC and transfers sit to stand SBA, ambulating SACK CLEANING HAND/CGA, 60'x 2, demonstating slow, steady cadenc with even stride. Patient very cautious gait pattern especially during 180 turns and returned to EOB with mild fatigue noted. Patient reported no change in pain c/o and remained EOB with call light, tray table and telephone. Will continue per POC as tolerated. Total treatment time 17 minutes. Cornelio Gil, MIXER AND BLENDER
[2018-05-09 12:00] VITALS: BP 150/84
[2018-05-09] MEDS ORDERED: HYDROCODONE-AC1 EAC1 PO (13:08)
--- NOTE | 2018-05-09 15:22 | NUR ---
PT DISCHARGED TO [facility] AT THIS TIME. REPORT GIVEN TO RECIEVING UNIT. HEPLOCK DISCONTINUED.
--- NOTE | 2018-05-11 07:47 | NUR ---
PHYSICAL THERAPY CO-SIGN I approve of the Phyical Therapy notes written above. VERÓNICA CAICEDO PT
--- NOTE | 2018-05-11 17:00 | NUR ---
OCCUPATIONAL THERAPY CO-SIGN I approve of the Occupational Therapy notes written above. DOM WOODS OTR/Yarelis
[2018-06-04] MEDS ORDERED: ESCITALOPRAM OX10 MG PO (21:26)
== END 2018-05-09 15:22 | disposition other institution (70) | DRG 543 ==
LOC: ED 08:12 → 4E 09:16 → EDHOLD 09:16 → 4E 09:34
PROVIDERS: Emergency Medicine; Student in an Organized Health Care Education/Training Program; ADMIT Internal Medicine
DX: M80.88XA Other osteoporosis with current pathological fracture, vertebra(e), initial encounter for fracture (principal); J96.10 Chronic respiratory failure, unspecified whether with hypoxia or hypercapnia; R00.0 Tachycardia, unspecified; R73.9 Hyperglycemia, unspecified; D72.829 Elevated white blood cell count, unspecified; G43.909 Migraine, unspecified, not intractable, without status migrainosus; I10 Essential (primary) hypertension; J44.9 Chronic obstructive pulmonary disease, unspecified; K76.0 Fatty (change of) liver, not elsewhere classified; I95.9 Hypotension, unspecified; F32.9 Major depressive disorder, single episode, unspecified; F41.1 Generalized anxiety disorder; Z99.81 Dependence on supplemental oxygen; Z87.81 Personal history of (healed) traumatic fracture; Z71.6 Tobacco abuse counseling; Z72.0 Tobacco use; Z88.0 Allergy status to penicillin; Z79.899 Other long term (current) drug therapy; Z90.710 Acquired absence of both cervix and uterus; Z85.41 Personal history of malignant neoplasm of cervix uteri; Z90.49 Acquired absence of other specified parts of digestive tract; Z98.41 Cataract extraction status, right eye; Z98.42 Cataract extraction status, left eye; Z83.3 Family history of diabetes mellitus; Z82.3 Family history of stroke; Z83.6 Family history of other diseases of the respiratory system

== ENCOUNTER 2018-06-04 12:05 | Inpatient (IN) | payer OTHER ==
[~2018-06-04] VITALS: Ht 160 cm; Wt 61.2 kg
[2018-06-04] VITALS (7 sets, daily range): BP systolic 112–150; BP diastolic 58–112
--- NOTE | ~2018-06-04 | EKG ---
[place], [place] ELECTROCARDIOGRAM REPORT NAME: GABRIELA GARNER UNIT #: [id number] ROOM: 416 DOCTOR: TAPAN DRAFT REPORT BIRTHDATE: [birth year] [facility] Test Date: 2018-06-04 Test Time: 13:09:36 Pat Name: GABRIELA GARNER Department: Room: 416 Gender: F Silo Erector: : 1960 Requested By: GLADIS GRIFFITH DNP Order Number: [id number] Reading MD: Juan Farias MD Measurements Intervals [place] Rate: 106 P: 56 MT: 132 QRS: 2 QRSD: 75 T: 36 QT: 325 QTc: 432 Interpretive Statements Sinus tachycardia Borderline low voltage, extremity leads Compared to ECG 04/15/2018 08:52:03 Sinus rhythm no longer present Electronically Signed On 06-04-2018 18:29:59 PST by Jaun Farias MD CM:[email or web address]:ELECTROCARDIOGRAM REPORT [id number] GLADIS SEEANY DRAFT REPORT GLADIS GRIFFITH DNP
[~2018-06-04 12:05] MED LIST changes: +HYDROCODONE-AC1 EAC1 PO; +NEURONTIN800 MG PO
[2018-06-04 13:20] LABS: BASO # 0.1 10*3/uL (0.0-0.1); BASO % 0.7 % (0.0-1.0); EOS # 0.1 10*3/uL (0.0-0.4); EOS % 0.6 % (1.0-4.0); HEMATOCRIT 42.1 % (37.0-47.0); HEMOGLOBIN 14.3 g/dl (12.0-16.0); LYMPH # 2.5 10*3/uL (1.3-4.4); LYMPH % 30.7 % (27.0-41.0); MEAN CELL VOLUME 91.7 fl (81.0-99.0); MEAN CORPUSCULAR HGB 31.2 pg (27.0-31.0); MEAN PLATELET VOLUME 10.5 fl (9.6-12.3); MONO # 0.6 10*3/uL (0.1-1.0); MONO % 7.7 % (3.0-9.0); NEUT # 4.9 10*3/uL (2.3-7.9); NEUT % 60.1 % (47.0-73.0); PLATELET COUNT AUTOMATED 350 10*3/uL (130-400); RED BLOOD COUNT 4.59 10*6/uL (4.10-5.10); RED CELL DISTRI WIDTH 14.4 % (0-14.5); WHITE BLOOD COUNT 8.2 10*3/uL (4.8-10.8)
[2018-06-04 13:35] LABS: ACT PARTIAL THROMBO TIME 21.1 SECONDS (20.8-31.5); ALBUMIN 3.8 gm/dl (3.1-4.5); ALKALINE PHOSPHATASE 129 U/L (45-117); BUN 9 mg/dl (7-24); CHLORIDE 103 mmol/L (98-107); CREATININE 0.82 mg/dL (0.55-1.02); INTERNATIONAL NORM RATIO 0.9 (2.0-3.5); LIPASE 145 U/L (73-393); POTASSIUM 3.9 mmol/L (3.5-5.1); SGOT/AST 105 IU/L (3-35); SGPT/ALT 217 U/L (12-78); SODIUM 138 mmol/L (136-145); TOTAL PROTEIN 7.3 gm/dL (6.4-8.2)
[2018-06-04 13:37] LABS: TROPONIN I < 0.015 ng/ml (<0.045)
[2018-06-04] MEDS ORDERED: GOOD NEIGHBOR L10 MG PO (21:18)
[2018-06-04] MEDS ORDERED: ONDANSETRON HYDR4 MG PO (21:21)
[2018-06-04] MEDS ORDERED: PROAIR HFA8.5 GM INH (21:24)
[2018-06-04] MEDS ORDERED: LEXAPRO20 MG PO (21:26)
[2018-06-04 22:36] LABS: BILIRUBIN 1+ (NEGATIVE); BLOOD NEGATIVE (NEGATIVE); CLARITY SL CLOUDY (CLEAR); COLOR YELLOW (YELLOW); GLUCOSE NEGATIVE (NEGATIVE); KETONE NEGATIVE (NEGATIVE); LEUKO ESTERASE 1+ (NEGATIVE); NITRITE NEGATIVE (NEGATIVE); PH 6.5 (5.0-9.0); SPECIFIC GRAVITY 1.015 (1.005-1.030)
[2018-06-04 22:46] LABS: URINE AMPHETAMINES < 1000 (1000ng/ml); URINE BARBITURATES < 200 (200ng/ml); URINE BENZODIAZEPINES < 200 (200ng/ml); URINE CANNABINOIDS (THC) > 50 (50ng/ml); URINE COCAINE < 300 (300ng/ml); URINE METHADONE < 300 (300ng/ml); URINE OPIATES < 300 (300ng/ml)
[2018-06-04 22:49] LABS: URINE PHENCYCLIDINE < 25 (25ng/ml)
[2018-06-04 22:53] LABS: BACTERIA TRACE
[2018-06-05] VITALS: BP 161/76
[2018-06-05 06:19] LABS: BASO # 0.1 10*3/uL (0.0-0.1); BASO % 1.3 % (0.0-1.0); EOS # 0.1 10*3/uL (0.0-0.4); EOS % 2.5 % (1.0-4.0); HEMATOCRIT 37.3 % (37.0-47.0); LYMPH # 1.7 10*3/uL (1.3-4.4); LYMPH % 32.1 % (27.0-41.0); MEAN CELL VOLUME 93.3 fl (81.0-99.0); MEAN CORPUSCULAR HGB 31.3 pg (27.0-31.0); MEAN CORPUSCULAR HGB CONC 33.5 g/dl (33.0-37.0); MEAN PLATELET VOLUME 10.7 fl (9.6-12.3); MONO # 0.5 10*3/uL (0.1-1.0); MONO % 9.1 % (3.0-9.0); NEUT # 2.9 10*3/uL (2.3-7.9); NEUT % 54.8 % (47.0-73.0); PLATELET COUNT AUTOMATED 288 10*3/uL (130-400); WHITE BLOOD COUNT 5.3 10*3/uL (4.8-10.8)
[2018-06-05 06:23] LABS: HEMOGLOBIN 12.5 g/dl (12.0-16.0)
[2018-06-05 06:31] LABS: ALBUMIN 3.1 gm/dl (3.1-4.5); BUN 9 mg/dl (7-24); CHLORIDE 108 mmol/L (98-107); POTASSIUM 3.5 mmol/L (3.5-5.1); SODIUM 143 mmol/L (136-145)
[2018-06-05 06:36] LABS: ALKALINE PHOSPHATASE 112 U/L (45-117); CREATININE 0.82 mg/dL (0.55-1.02); PHOSPHOROUS 4.5 mg/dL (2.5-4.9); SGOT/AST 84 IU/L (3-35); SGPT/ALT 167 U/L (12-78)
[2018-06-05 08:00] VITALS: BP 130/84
[2018-06-05 11:25] VITALS: BP 93/64
[2018-06-05 16:00] VITALS: BP 87/54
[2018-06-05 20:00] VITALS: BP 82/54
[2018-06-05 20:18] VITALS: BP 96/64
[2018-06-06] VITALS: BP 107/56
[2018-06-06 08:00] VITALS: BP 120/62
[2018-06-06] MEDS ORDERED: MOBIC15 MG PO (11:44)
[2018-06-06 12:00] VITALS: BP 122/76
[2018-08-14] MEDS ORDERED: Motrin,Rufen800 MG PO (18:32)
[2018-08-14] MEDS ORDERED: NARCAN4 MG NAS (18:36)
[2018-08-14] MEDS ORDERED: OXYCODON-ACETA1 EACH PO (18:38)
[2018-08-14] MEDS ORDERED: ZALEPLON10 MG PO (18:43)
[2018-08-19] MEDS ORDERED: PREDNISONE10 MG PO (13:47)
[2018-08-19] MEDS ORDERED: DOXYCYCLINE100 M3 PO (13:47)
== END 2018-06-06 12:40 | disposition home or self-care (01) | DRG 552 ==
LOC: ED 12:05 → EDHOLD 15:42 → 4E 15:42
PROVIDERS: Internal Medicine; Nurse Practitioner Family; ADMIT Internal Medicine
DX: M54.5 Low back pain (principal); J96.11 Chronic respiratory failure with hypoxia; E44.0 Moderate protein-calorie malnutrition; G89.29 Other chronic pain; F32.9 Major depressive disorder, single episode, unspecified; J44.9 Chronic obstructive pulmonary disease, unspecified; K76.0 Fatty (change of) liver, not elsewhere classified; R13.10 Dysphagia, unspecified; F41.1 Generalized anxiety disorder; E55.9 Vitamin D deficiency, unspecified; F17.200 Nicotine dependence, unspecified, uncomplicated; I10 Essential (primary) hypertension; Z88.8 Allergy status to other drugs, medicaments and biological substances; Z79.899 Other long term (current) drug therapy; Z99.81 Dependence on supplemental oxygen; Z79.1 Long term (current) use of non-steroidal anti-inflammatories (NSAID); Z88.1 Allergy status to other antibiotic agents; Z90.49 Acquired absence of other specified parts of digestive tract; Z98.42 Cataract extraction status, left eye; Z98.41 Cataract extraction status, right eye; Z90.710 Acquired absence of both cervix and uterus; Z82.49 Family history of ischemic heart disease and other diseases of the circulatory system; Z82.5 Family history of asthma and other chronic lower respiratory diseases; Z68.23 Body mass index [BMI] 23.0-23.9, adult

== ENCOUNTER 2018-06-14 10:58 | Inpatient (IN) | payer OTHER ==
[~2018-06-14] VITALS: Ht 160 cm; Wt 60.3 kg
--- NOTE | ~2018-06-14 | EKG ---
[place], [place] ELECTROCARDIOGRAM REPORT NAME: GABRIELA GARNER UNIT #: [id number] ROOM: [facility] DOCTOR: TAPAN DRAFT REPORT BIRTHDATE: [birth year] [facility] Test Date: 2018-06-14 Test Time: 18:20:24 Pat Name: GABRIELA GARNER Department: Room: [facility] 1 Gender: F Criminal Defense Lawyer: Sharif Solis : 1960 Requested By: CELSO MICHAEL Order Number: [id number] Reading MD: Jaun Farias MD Measurements Intervals [place] Rate: 99 P: 75 TN: 136 QRS: 16 QRSD: 84 T: 59 QT: 371 QTc: 477 Interpretive Statements Sinus rhythm Probable left atrial enlargement Low voltage, extremity and precordial leads Nonspecific T abnormalities, anterior leads Compared to ECG 06/04/2018 13:09:36 T-wave abnormality now present Sinus tachycardia no longer present Electronically Signed On 06-14-2018 20:42:05 PST by Jaun Farias MD CM:EKGRPT:ELECTROCARDIOGRAM REPORT 19 41 CELSO PHELAN DRAFT REPORT CELSO MICHAEL
[~2018-06-14 10:58] MED LIST changes: +GOOD NEIGHBOR L10 MG PO; +MOBIC15 MG PO; +ONDANSETRON HYDR4 MG PO
[2018-06-14 10:59] VITALS: BP 189/99
[2018-06-14 12:34] VITALS: BP 164/92
[2018-06-14 13:05] LABS: BASO # 0.1 10*3/uL (0.0-0.1); BASO % 0.8 % (0.0-1.0); EOS % 0.5 % (1.0-4.0); HEMATOCRIT 45.2 % (37.0-47.0); HEMOGLOBIN 15.1 g/dl (12.0-16.0); LYMPH # 2.4 10*3/uL (1.3-4.4); LYMPH % 37.2 % (27.0-41.0); MEAN CELL VOLUME 91.1 fl (81.0-99.0); MEAN CORPUSCULAR HGB 30.4 pg (27.0-31.0); MEAN CORPUSCULAR HGB CONC 33.4 g/dl (33.0-37.0); MEAN PLATELET VOLUME 10.7 fl (9.6-12.3); MONO # 0.4 10*3/uL (0.1-1.0); MONO % 6.6 % (3.0-9.0); NEUT # 3.6 10*3/uL (2.3-7.9); NEUT % 54.7 % (47.0-73.0); PLATELET COUNT AUTOMATED 355 10*3/uL (130-400); RED BLOOD COUNT 4.96 10*6/uL (4.10-5.10); RED CELL DISTRI WIDTH 14.2 % (0-14.5); WHITE BLOOD COUNT 6.5 10*3/uL (4.8-10.8)
[2018-06-14 13:09] LABS: BILIRUBIN NEGATIVE (NEGATIVE); BLOOD NEGATIVE (NEGATIVE); CLARITY CLEAR (CLEAR); COLOR YELLOW (YELLOW); GLUCOSE NEGATIVE (NEGATIVE); KETONE 1+ (NEGATIVE); LEUKO ESTERASE NEGATIVE (NEGATIVE); NITRITE NEGATIVE (NEGATIVE); PH 8.5 (5.0-9.0); UROBILINOGEN 0.2 E.U./dl (0.2-1.0)
[2018-06-14 13:16] LABS: ALBUMIN 3.4 gm/dl (3.1-4.5); ALKALINE PHOSPHATASE 125 U/L (45-117); BUN 4 mg/dl (7-24); CHLORIDE 102 mmol/L (98-107); CREATININE 0.58 mg/dL (0.55-1.02); LIPASE 96 U/L (73-393); POTASSIUM 3.2 mmol/L (3.5-5.1); SGOT/AST 64 IU/L (3-35); SGPT/ALT 126 U/L (12-78); SODIUM 140 mmol/L (136-145); TOTAL PROTEIN 7.3 gm/dL (6.4-8.2)
[2018-06-14 13:49] VITALS: BP 108/90
--- NOTE | 2018-06-14 14:00 | NUR ---
PT W/O ACUTE DISTRESS NOTED AWAITING ALL RESULTS FOR ADDITIONAL PLAN OF CARE,PT POSITIONED FOR COMFORT W/LIGHTS DIMMED,SAFETY PRECAUTIONS INTACT AND CALL LIGHT WITHIN REACH.
--- NOTE | 2018-06-14 15:41 | NUR ---
PT COMPLAINS OF CONTINUOUS NAUSEA,NO EMESIS, PT WITH CALL LIGHT WITHIN REACH AND SAFETY PRECAUTIONS INTACT.
[2018-06-14 15:52] VITALS: BP 120/64
[2018-06-14 16:25] VITALS: BP 156/92
--- NOTE | 2018-06-14 16:25 | NUR ---
A 57, admitted to 5E, under the services of BRITTANI Núñez DO with a diagnosis of COPD EXACERBATION . Chief complaint is SHORTNESS OF BREATH Patient arrived via bed from ER. Monitor applied. Initial assessment completed. Vital signs taken and recorded. BRITTANI NÚÑEZ DO notified of admission to the unit. Orders received. See assessment for past medical history, medications and allergies. Patient and/or family oriented to unit. [facility] visitation policy reviewed. Clothing/patient valuable form completed. OLI CASAREZ
--- NOTE | 2018-06-14 17:54 | NUR ---
MEDS RECONCILED WITH PT AT BEDSIDE.NOTIFIED DR RICK OF MED RECONCILIATION.
--- NOTE | 2018-06-14 18:20 | NUR ---
ATTEMPTED TO MEDICATE PT BUT SHE REFUSED TO TAKE MEDS.
[2018-06-14 20:00] VITALS: BP 154/90
--- NOTE | 2018-06-14 21:46 | NUR ---
ZOFRAN GIVEN FOR COMPLAINTS OF NAUSEA. WILL CONTINUE TO MONITOR AND REASSESS.
--- NOTE | 2018-06-14 22:30 | NUR ---
ZOFRAN EFFECTIVE FOR NAUSEA. PT RESTING COMFORTABLY.
[2018-06-15] VITALS: BP 135/80
[2018-06-15 07:02] LABS: ALBUMIN 2.8 gm/dl (3.1-4.5); ALKALINE PHOSPHATASE 100 U/L (45-117); BUN 7 mg/dl (7-24); CHLORIDE 108 mmol/L (98-107); CREATININE 0.73 mg/dL (0.55-1.02); FREE T4 1.11 ng/dl (0.76-1.46); PHOSPHOROUS 4.4 mg/dL (2.5-4.9); POTASSIUM 3.6 mmol/L (3.5-5.1); SGOT/AST 57 IU/L (3-35); SGPT/ALT 102 U/L (12-78); SODIUM 144 mmol/L (136-145); TOTAL PROTEIN 5.8 gm/dL (6.4-8.2)
[2018-06-15 07:07] LABS: THYROID STIM HORMONE (HS) 0.184 uIU/ml (0.358-4.75)
[2018-06-15 07:15] LABS: BASO % 0.3 % (0.0-1.0); LYMPH # 1.2 10*3/uL (1.3-4.4); LYMPH % 32.6 % (27.0-41.0); MEAN CELL VOLUME 92.7 fl (81.0-99.0); MEAN CORPUSCULAR HGB CONC 32.4 g/dl (33.0-37.0); MEAN PLATELET VOLUME 10.7 fl (9.6-12.3); MONO # 0.2 10*3/uL (0.1-1.0); MONO % 5.4 % (3.0-9.0); NEUT # 2.3 10*3/uL (2.3-7.9); NEUT % 61.4 % (47.0-73.0); PLATELET COUNT AUTOMATED 299 10*3/uL (130-400); WHITE BLOOD COUNT 3.7 10*3/uL (4.8-10.8)
[2018-06-15 07:21] LABS: HEMOGLOBIN 12.3 g/dl (12.0-16.0)
[2018-06-15 08:11] VITALS: BP 125/70
--- NOTE | 2018-06-15 08:16 | NUR ---
VITAL SIGNS STABLE, A&O X3,EQUAL RECREATION COUNSELOR, BHARGAV, HEART SOUNDS STRONG AND NORMAL, LUNG SOUNDS WHEEZING IN ALL FOUR LOBES ON EXACEBATION, BSX4, NON TENDER, NON DISTENDED, CAPILLARY REFILL <3, SKIN TURGOR NON TENTING, PINK, WARM TO TOUCH, DRY, NO EDEMA NOTED, POSITIVE PEDAL PULSES, PATITENT COMPLAINED OF HEADACHE RATED 3 OUT OF 10 WILL CONTINUE TO ASSESS. GLADIS KANG SPTESFAYECC
--- NOTE | 2018-06-15 08:44 | NUR ---
PATIENT C/O HEADACHE IN THE FOREHEAD RATED IT AT A 8 OUT OF 10 POUNDING AND THROBBING, WAS GIVE TYLENOL 2 PO, WILL CONTINUE TO ASSESS. GLADIS KANG SPTESAFYECC
--- NOTE | 2018-06-15 09:28 | NUR ---
REASSESSED PATIENT ON HEADACHE PATIENT STATED THAT " MY HEAD FEELS BETTER" WHEN ASKED ON A SCALE OF 0-10 PATIENT STATED "0" GLADIS TERESA
[2018-06-15 12:00] VITALS: BP 136/76
--- NOTE | 2018-06-15 12:52 | NUR ---
Soap Tender in to talk to patient. Patient states lives at HOME with ALONE. There are SOME steps in the home. Physician: Tonie FINCH [facility]acy: [facility] Home health services: NONE Patient's level of ADLs: INDEPENDENT Patient has working utilities: YES DME: [facility] Follow-up physician's appointment after d/c: WILL BE MADE BY HOSPITALIST NURSE DIRECTOR ON DISCHARGE Does patient want to access PORTAL?: NO Discharge plan PT STATES I AM DOING FINE AT HOME AND I DON'T NEED ANYTHING. STATES HER DAUGHTER LIVES ACROSS THE [address] FROM HER AND HELPS HER IF SHE NEEDS IT. PT HAS BEEN TO [facility] BEFORE BUT DOES NOT WANT TO RETURN. WILL CONTINUE TO FOLLOW. STATES SHE WILL HAVE A RIDE HOME ON DISCHARGE.. GRISEL GUNTER
--- NOTE | 2018-06-15 14:47 | NUR ---
MEDICATED WITH PO TYLENOL AND FLEXERIL ORDERED PER PT REQUEST FOR C/O CHRONIC LOWER BACK PAIN D/T CONPRESSION FX X6.
[2018-06-15 16:00] VITALS: BP 121/65
--- NOTE | 2018-06-15 16:35 | NUR ---
DR MAIN NOTIFIED THAT PT IS RESTING ADDITIONAL PAIN MED.
--- NOTE | 2018-06-15 16:36 | NUR ---
MEDICATION SOMEWHAT EFFECTIVE FOR LOWER BACK PAIN.
--- NOTE | 2018-06-15 16:53 | NUR ---
MEDICATED WITH IV DILAUDID ORDERED PER PT REQUEST FOR C/O PAIN TO LOWER BACK RATED 8/10.
[2018-06-15 20:00] VITALS: BP 147/87
[2018-06-15 23:16] VITALS: BP 78/50
--- NOTE | 2018-06-15 23:35 | NUR ---
REQUESTED AND RECEIVED DILAUDID AND FLEXERIL PER PRN ORDER FOR COMPLAINTS OF LOWER BACK PAIN RATING A 9. CALL LIGHT WITHIN REACH. WILL MONITOR FOR EFFECTIVENESS
[2018-06-16] VITALS: BP 149/73
--- NOTE | 2018-06-16 07:56 | NUR ---
24 HR chart check completed.
[2018-06-16 08:00] VITALS: BP 150/90
--- NOTE | 2018-06-16 08:47 | NUR ---
MEDICATED WITH IV DILAUDID ORDERED PER PT REQUEST FOR C/O PAIN TO BACK/HIPS RATED 9/10.
--- NOTE | 2018-06-16 10:58 | NUR ---
MEDICATION MOSTLY EFFECTIVE FOR PAIN PER PT.
--- NOTE | 2018-06-16 11:27 | NUR ---
CONTINUES TO DENY HOME NEEDS ON DISCHARGE.
[2018-06-16 12:00] VITALS: BP 154/80
--- NOTE | 2018-06-16 14:26 | NUR ---
MEDICATED WITH IV DILAUDID ORDERED PER PT REQUEST FOR C/O 12/05 BACK PAIN.
[2018-06-16 16:00] VITALS: BP 151/90
--- NOTE | 2018-06-16 16:00 | NUR ---
MEDICATION EFFECTIVE FOR PAIN.
[2018-06-16 20:00] VITALS: BP 156/87
--- NOTE | 2018-06-16 20:39 | NUR ---
MEDICATED WITH IV DILAUDID ORDERED PER PT REQUEST FOR C/O PAIN TO BACK/HIPS RATED 6/10.
--- NOTE | 2018-06-16 21:53 | NUR ---
MEDICATION EFFECTIVE FOR PAIN.
--- NOTE | 2018-06-16 23:11 | NUR ---
24 HR CHART CHECK COMPLETE
[2018-06-17] VITALS: BP 150/88
--- NOTE | 2018-06-17 02:41 | NUR ---
PT REQUESTS PRN DILAUDID FOR LOWER BACK PAIN RATING IT AN 8/10. WILL CONTINUE TO MONITOR.
--- NOTE | 2018-06-17 03:21 | NUR ---
PT RESTING COMFORTABLE. NO S/S OF DISTRESS AT THIS TIME. PRN DILAUDID EFFECTIVE. WILL CONTINUE TO MONITOR.
[2018-06-17 06:25] LABS: BASO % 0.3 % (0.0-1.0); HEMATOCRIT 34.7 % (37.0-47.0); LYMPH # 1.1 10*3/uL (1.3-4.4); LYMPH % 14.8 % (27.0-41.0); MEAN CELL VOLUME 95.1 fl (81.0-99.0); MEAN CORPUSCULAR HGB 30.1 pg (27.0-31.0); MEAN CORPUSCULAR HGB CONC 31.7 g/dl (33.0-37.0); MEAN PLATELET VOLUME 10.4 fl (9.6-12.3); MONO # 0.4 10*3/uL (0.1-1.0); MONO % 5.5 % (3.0-9.0); NEUT # 5.9 10*3/uL (2.3-7.9); NEUT % 78.7 % (47.0-73.0); PLATELET COUNT AUTOMATED 265 10*3/uL (130-400); RED BLOOD COUNT 3.65 10*6/uL (4.10-5.10); RED CELL DISTRI WIDTH 13.9 % (0-14.5); WHITE BLOOD COUNT 7.5 10*3/uL (4.8-10.8)
[2018-06-17 06:52] LABS: BUN 10 mg/dl (7-24); CHLORIDE 109 mmol/L (98-107); POTASSIUM 3.4 mmol/L (3.5-5.1); SODIUM 143 mmol/L (136-145)
[2018-06-17 08:00] VITALS: BP 148/92
--- NOTE | 2018-06-17 10:45 | NUR ---
PT CONTINUES TO DENY HOME NEEDS. CAN BE DISCHARGED TO HOME WHEN MEDICALLY STABLE. WILL CONTINUE TO FOLLOW.
[2018-06-17 12:00] VITALS: BP 165/88
[2018-06-17 14:40] VITALS: BP 148/82
[2018-06-17 16:00] VITALS: BP 132/60
--- NOTE | 2018-06-17 16:46 | NUR ---
PT MEDICATED WITH DILAUDID 0.5MG IV FOR C/O CHRONIC BACK AND BILATERAL HIP PAIN.
[2018-06-17 20:00] VITALS: BP 162/88
--- NOTE | 2018-06-17 21:17 | NUR ---
FLEXERIL GIVEN PER ORDER FOR MUSCLE SPASMS PER PT. REQUEST. SEE MAR.
--- NOTE | 2018-06-17 22:44 | NUR ---
DILAUDID GIVEN PER ORDER FOR PAIN OF BACK RATED "9" SEE MAR.
--- NOTE | 2018-06-17 23:40 | NUR ---
DILAUDID AND FLEXERIL EFFECTIVE FOR PAIN AND MUSCLE SPASM PER PT.
[2018-06-18] VITALS: BP 151/84
--- NOTE | 2018-06-18 00:14 | NUR ---
24 HR chart check completed.
--- NOTE | 2018-06-18 04:49 | NUR ---
C/O BACK PAIN RATE "9" DILAUDID GIVEN PER ORDER FOR PAIN AND FLEXERIL GIVEN FOR MUSCLE SPASM. SEE MAR.
--- NOTE | 2018-06-18 04:58 | NUR ---
0449 DILAUDID GIVEN PER ORDER FOR BACK PAIN RATED "9" 0458 FLEXERIL GIVEN PER ORDER FOR MUSCLE SPASM.
--- NOTE | 2018-06-18 05:45 | NUR ---
DILAUDID AND FLEXERIL EFFECTIVE FOR PAIN AND MUSCLE SPASM PER PT.
[2018-06-18 06:54] LABS: BASO % 0.1 % (0.0-1.0); HEMATOCRIT 35.7 % (37.0-47.0); HEMOGLOBIN 11.9 g/dl (12.0-16.0); LYMPH # 1.2 10*3/uL (1.3-4.4); LYMPH % 15.1 % (27.0-41.0); MEAN CELL VOLUME 92.5 fl (81.0-99.0); MEAN CORPUSCULAR HGB 30.8 pg (27.0-31.0); MEAN CORPUSCULAR HGB CONC 33.3 g/dl (33.0-37.0); MEAN PLATELET VOLUME 10.5 fl (9.6-12.3); MONO # 0.4 10*3/uL (0.1-1.0); MONO % 5.4 % (3.0-9.0); NEUT # 6.2 10*3/uL (2.3-7.9); NEUT % 78.8 % (47.0-73.0); PLATELET COUNT AUTOMATED 306 10*3/uL (130-400); RED BLOOD COUNT 3.86 10*6/uL (4.10-5.10); RED CELL DISTRI WIDTH 13.8 % (0-14.5); WHITE BLOOD COUNT 7.8 10*3/uL (4.8-10.8)
[2018-06-18 07:21] LABS: CHLORIDE 105 mmol/L (98-107); POTASSIUM 3.4 mmol/L (3.5-5.1); SODIUM 142 mmol/L (136-145)
[2018-06-18 07:39] LABS: ALBUMIN 3.1 gm/dl (3.1-4.5); ALKALINE PHOSPHATASE 103 U/L (45-117); BUN 13 mg/dl (7-24); CREATININE 0.61 mg/dL (0.55-1.02); SGOT/AST 97 IU/L (3-35); SGPT/ALT 180 U/L (12-78); TOTAL PROTEIN 6.1 gm/dL (6.4-8.2)
[2018-06-18 08:00] VITALS: BP 166/99
--- NOTE | 2018-06-18 09:00 | NUR ---
PT MEDICATED WITH TYLENOL FOR C/O BACK PAIN PT RATES PAIN 12/05 WILL MONITOR
[2018-06-18 10:28] VITALS: BP 162/86
--- NOTE | 2018-06-18 10:31 | NUR ---
DR MAIN CALLED AND NOTIFIED OF PT BP
--- NOTE | 2018-06-18 11:14 | NUR ---
PT MEDICATED WITH DILAUDID FOR C/O BACK PAIN . PT RATES PAIN 12/05 WILL MONITOR
[2018-06-18] MEDS ORDERED: MUCINEX ER600 MG PO (11:32)
[2018-06-18] MEDS ORDERED: OXYCODONE HYDRO10 M2 PO (11:33)
[2018-06-18] MEDS ORDERED: CEFUROXIME AXE500 MG PO (11:33)
[2018-06-18] MEDS ORDERED: PREDNISONE10 MG PO (11:33)
[2018-06-18] MEDS ORDERED: NICODERM CQ1 EAC2 TD (11:34)
--- NOTE | 2018-06-18 12:00 | NUR ---
PT STATES THAT MARTA HELPED WILL MONITOR
--- NOTE | 2018-06-18 12:29 | NUR ---
Discharge instructions reviewed with patient/family. Patient receptive and verbalizes understanding. Follow-up care arranged. Written instructions given to patient/family. MARIANNE NATARAJAN
[2018-08-14] MEDS ORDERED: Motrin,Rufen800 MG PO (18:32)
[2018-08-14] MEDS ORDERED: NARCAN4 MG NAS (18:36)
[2018-08-14] MEDS ORDERED: OXYCODON-ACETA1 EACH PO (18:38)
[2018-08-14] MEDS ORDERED: ZALEPLON10 MG PO (18:43)
[2018-08-19] MEDS ORDERED: PREDNISONE10 MG PO (13:47)
[2018-08-19] MEDS ORDERED: DOXYCYCLINE100 M3 PO (13:47)
== END 2018-06-18 12:29 | disposition home or self-care (01) | DRG 191 ==
LOC: ED 10:58 → 5E 15:31 → EDHOLD 15:31 → 5E 16:18
PROVIDERS: Emergency Medicine; Internal Medicine; Physician Assistant; Student in an Organized Health Care Education/Training Program; ADMIT Internal Medicine
DX: J44.1 Chronic obstructive pulmonary disease with (acute) exacerbation (principal); E44.0 Moderate protein-calorie malnutrition; J96.10 Chronic respiratory failure, unspecified whether with hypoxia or hypercapnia; R74.0 Nonspecific elevation of levels of transaminase and lactic acid dehydrogenase [LDH]; F41.1 Generalized anxiety disorder; E55.9 Vitamin D deficiency, unspecified; I10 Essential (primary) hypertension; F12.10 Cannabis abuse, uncomplicated; M54.6 Pain in thoracic spine; F17.210 Nicotine dependence, cigarettes, uncomplicated; G89.29 Other chronic pain; F32.9 Major depressive disorder, single episode, unspecified; G43.909 Migraine, unspecified, not intractable, without status migrainosus; E87.8 Other disorders of electrolyte and fluid balance, not elsewhere classified; R42 Dizziness and giddiness; R73.9 Hyperglycemia, unspecified; E87.6 Hypokalemia; Z99.81 Dependence on supplemental oxygen; Z88.1 Allergy status to other antibiotic agents; Z88.6 Allergy status to analgesic agent; Z88.8 Allergy status to other drugs, medicaments and biological substances; Z90.49 Acquired absence of other specified parts of digestive tract; Z90.710 Acquired absence of both cervix and uterus; Z98.42 Cataract extraction status, left eye; Z98.41 Cataract extraction status, right eye; Z82.5 Family history of asthma and other chronic lower respiratory diseases; Z82.49 Family history of ischemic heart disease and other diseases of the circulatory system; Z82.3 Family history of stroke; Z83.3 Family history of diabetes mellitus; Z83.2 Family history of diseases of the blood and blood-forming organs and certain disorders involving the immune mechanism; Z85.41 Personal history of malignant neoplasm of cervix uteri; Z79.899 Other long term (current) drug therapy; Z68.23 Body mass index [BMI] 23.0-23.9, adult

== ENCOUNTER → 2018-06-19 | Outpatient (CLI) | payer OTHER ==
[~2018-06-19] MED LIST changes: +CEFUROXIME AXE500 MG PO; +GAVISCON ES TA1 EACH PO; +LUNESTA2 MG PO; +NARCAN4 MG NAS; +NICODERM CQ1 EAC2 TD; +OXYCODON-ACETA1 EACH PO; +OXYCODONE HYDRO10 M2 PO; +TRELEGY ELLIPT1 EACH INH; +ZALEPLON10 MG PO
[2018-06-19 10:10] LABS: BUN 20 mg/dl (7-24); CREATININE 1.03 mg/dL (0.55-1.02)
== END | disposition home or self-care (01) ==
LOC: NM 06-18 10:00 → LAB 09:34 → NM 10:00
PROVIDERS: Orthopaedic Surgery Orthopaedic Surgery of the Spine
DX: S22.43XA Multiple fractures of ribs, bilateral, initial encounter for closed fracture (principal); S22.20XA Unspecified fracture of sternum, initial encounter for closed fracture; M81.0 Age-related osteoporosis without current pathological fracture; X58.XXXA Exposure to other specified factors, initial encounter; Y93.89 Activity, other specified; Y92.89 Other specified places as the place of occurrence of the external cause; Y99.8 Other external cause status

== ENCOUNTER 2018-08-12 11:17 | Emergency (ER) | payer OTHER ==
[~2018-08-12] VITALS: Ht 160 cm; Wt 57.2 kg
[~2018-08-12 11:17] MED LIST changes: -GAVISCON ES TA1 EACH PO; -LUNESTA2 MG PO; -NARCAN4 MG NAS; -OXYCODON-ACETA1 EACH PO; -TRELEGY ELLIPT1 EACH INH; -ZALEPLON10 MG PO
[2018-08-12 11:57] LABS: BASO # 0.1 10*3/uL (0.0-0.1); BASO % 1.2 % (0.0-1.0); EOS % 0.1 % (1.0-4.0); HEMATOCRIT 49.9 % (37.0-47.0); HEMOGLOBIN 17.4 g/dl (12.0-16.0); LYMPH # 2.5 10*3/uL (1.3-4.4); LYMPH % 32.4 % (27.0-41.0); MEAN CELL VOLUME 89.1 fl (81.0-99.0); MEAN CORPUSCULAR HGB 31.1 pg (27.0-31.0); MEAN CORPUSCULAR HGB CONC 34.9 g/dl (33.0-37.0); MEAN PLATELET VOLUME 10.4 fl (9.6-12.3); MONO # 0.5 10*3/uL (0.1-1.0); MONO % 6.3 % (3.0-9.0); NEUT # 4.6 10*3/uL (2.3-7.9); NEUT % 59.9 % (47.0-73.0); PLATELET COUNT AUTOMATED 374 10*3/uL (130-400); RED CELL DISTRI WIDTH 12.5 % (0-14.5); WHITE BLOOD COUNT 7.7 10*3/uL (4.8-10.8)
[2018-08-12 12:14] LABS: ALBUMIN 3.9 gm/dl (3.1-4.5); ALKALINE PHOSPHATASE 98 U/L (45-117); BUN 8 mg/dl (7-24); CHLORIDE 95 mmol/L (98-107); CREATININE 0.77 mg/dL (0.55-1.02); LIPASE 68 U/L (73-393); POTASSIUM 3.6 mmol/L (3.5-5.1); SGOT/AST 24 IU/L (3-35); SGPT/ALT 24 U/L (12-78); SODIUM 136 mmol/L (136-145); TOTAL PROTEIN 7.5 gm/dL (6.4-8.2)
[2018-08-12 14:04] LABS: BILIRUBIN 1+ (NEGATIVE); BLOOD NEGATIVE (NEGATIVE); CLARITY CLEAR (CLEAR); COLOR YELLOW (YELLOW); GLUCOSE NEGATIVE (NEGATIVE); KETONE 3+ (NEGATIVE); LEUKO ESTERASE TRACE (NEGATIVE); NITRITE NEGATIVE (NEGATIVE); SPECIFIC GRAVITY 1.015 (1.005-1.030); UROBILINOGEN 0.2 E.U./dl (0.2-1.0)
[2018-08-12 14:15] VITALS: BP 142/87
[2018-08-12 14:28] LABS: BACTERIA 1+
[2018-08-12] MEDS ORDERED: ZOFRAN4 MG PO (14:45)
[2018-08-12] MEDS ORDERED: CEFUROXIME AXE500 MG PO (14:45)
[2018-08-14] MEDS ORDERED: Motrin,Rufen800 MG PO (18:32)
[2018-08-14] MEDS ORDERED: NARCAN4 MG NAS (18:36)
[2018-08-14] MEDS ORDERED: OXYCODON-ACETA1 EACH PO (18:38)
[2018-08-14] MEDS ORDERED: ZALEPLON10 MG PO (18:43)
[2018-08-19] MEDS ORDERED: DOXYCYCLINE100 M3 PO (13:47)
[2018-08-19] MEDS ORDERED: PREDNISONE10 MG PO (13:47)
== END 2018-08-12 14:50 | disposition home or self-care (01) ==
LOC: ED 11:17
PROVIDERS: Nurse Practitioner Family
DX: K29.60 Other gastritis without bleeding (principal); N39.0 Urinary tract infection, site not specified; F17.200 Nicotine dependence, unspecified, uncomplicated; F12.10 Cannabis abuse, uncomplicated; J44.9 Chronic obstructive pulmonary disease, unspecified; Z98.890 Other specified postprocedural states; Z90.49 Acquired absence of other specified parts of digestive tract; Z90.710 Acquired absence of both cervix and uterus; Z88.6 Allergy status to analgesic agent; Z88.5 Allergy status to narcotic agent; Z88.1 Allergy status to other antibiotic agents

== ENCOUNTER 2018-10-11 18:48 | Inpatient (IN) | payer OTHER ==
[~2018-10-11] VITALS: Ht 160 cm; Wt 61.4 kg
--- NOTE | ~2018-10-11 | O ---
[place], [place] OPERATIVE NOTE [id number] UN[facility] #: [id number] ROOM: 406 DOCTOR: HANNAH DORSEY MD BIRTHDATE: [birth year] DOS: 10/14/2018 HISTORY OF PRESENT ILLNESS: This is a 57-year-old patient who was presented as a smoker of 2 packs a day at least and at least 6-pack of carbonated soda a day with epigastric distress, dyspepsia. Undergoing investigation. PROCEDURE: Today's procedure part of investigation is panendoscopy plus biopsy. PREMEDICATION: Propofol. SCOPE: Olympus forward-viewing gastroscope Q10 video. REPORT: After putting the patient in left lateral and application of lubricant to the scope, the scope was introduced; thereafter, under direct visualization, advanced through the length of esophagus into gastric pouch into duodenal bulb, mild duodenitis was noticed. Gastritis seen. Photographic series obtained. Antral biopsy obtained for H. pylori. The patient extubated, tolerated the procedure well. IMPRESSION: Gastritis, duodenitis. No gross evidence of hiatal hernia. PLAN AND DISCUSSION: Omeprazole 40 mg day, would suffice management. On the other hand that the culprit of the gastritis, dyspepsia has to be eradicated that including 2 packs of smoking and 6 pack of carbonated soda per day. The patient with severe degenerative joint disease. She is on ibuprofen 800 mg tablets at least twice a day that has to be if she needs to have the intake of above because of degenerative joint disease. One Gaviscon tablets along with ibuprofen has to be used. Follow up as outpatient. Elevation of the head of the bed all time. Gaviscon as antacid of choice 1 at bedtime, omeprazole 40 mg every day. HANNAH DORSEY MD CM:OPRECORD:OPERATIVE NOTE [id number] HANNAH DORSEY MD 11/04/18 0754 interface
--- NOTE | ~2018-10-11 | EKG ---
[place], [place] ELECTROCARDIOGRAM REPORT NAME: GABRIELA GARNER UNIT #: [id number] ROOM: 406 DOCTOR: TAPAN DRAFT REPORT BIRTHDATE: [birth year] [facility] Test Date: 2018-10-11 Test Time: 19:21:53 Pat Name: GABRIELA GARNER Department: Room: 406 Gender: F Manager Specialty: : 1960 Requested By: JOHNY SCHMIDT PA-C Order Number: [id number] Reading MD: Tommy Lopez Measurements Intervals [place] Rate: 84 P: 63 LA: 144 QRS: 2 QRSD: 70 T: 53 QT: 414 QTc: 490 Interpretive Statements Sinus rhythm Probable left atrial enlargement Borderline low voltage, extremity leads Borderline prolonged QT interval Baseline wander in lead(s) V3,V6 Compared to ECG 08/14/2018 22:51:45 Sinus tachycardia no longer present Myocardial infarct finding no longer present Electronically Signed On 10-15-2018 4:18:23 PDT by Tommy Lopez CM:EKGRPT:ELECTROCARDIOGRAM REPORT 20 0418 JOHNY PHELAN DRAFT REPORT JOHNY SCHMIDT PA-C
--- NOTE | ~2018-10-11 | CON ---
[place], [place] REPORT OF CONSULTATION NAME: GABRIELA GARNER [facility] #: [id number] UNIT #: [id number] ROOM: 406 DOCTOR: WILLIAN HARTMANHANNAH BIRTHDATE: [birth year] DOS: 10/12/2018 CHIEF COMPLAINT: This is a 57-year-old patient who has presented with chief complaint of epigastric abdominal pain. The patient is aggressive smoker up to a pack of cigarette and at least two tablets of 800 mg ibuprofen daily. The patient with epigastric distress, nausea. PAST MEDICAL HISTORY: COPD, Fatty liver, gastroesophageal reflux, migraine cephalalgia, history of bowel obstruction, intractable nausea, vomiting. PAST SURGICAL HISTORY: Associated with hysterectomy, cataract, LEEP, endoscopies, diskectomy, and vertebroplasty. SOCIAL HISTORY: Smoker, 2 packs of cigarettes daily. FAMILY HISTORY: Noncontributory. ALLERGIES: LEVAQUIN, NAPROXEN AND DAYPRO. MEDICATIONS: List has been reviewed. REVIEW OF SYSTEMS: HEENT: Denies double vision, blurred vision. RESPIRATORY: Admits to shortness of breath chronically. CARDIOVASCULAR: Denies chest pain. DIGESTIVE SYSTEM: Epigastric abdominal pain. PHYSICAL EXAMINATION: HEENT: Within normal limit. Typical characteristics of COPD, edentulous. NECK: Supple, no thyromegaly, no cervical lymphadenopathy. CHEST: Symmetric anatomy, equal expansion. No wheeze, no rhonchi. HEART: Normal sinus rhythm, no gallop, no murmur. ABDOMEN: Soft, obese. No pulsatile mass. No rebound tenderness. EXTREMITIES: No cyanosis, no pedal edema. NEUROLOGIC: Alert, oriented to time, place, person. LABORATORY DATA: Labs and records reviewed. H and H of 14 and 42, white blood cells 10. Chest x-ray, no radiologic pathology. Comprehensive metabolic panel and GFR greater than 60. Chemistry [address] scan of the abdomen and pelvis with contrast, no acute process was noticed. Lactic acid 1.3. PLAN AND DISCUSSION AND IMPRESSION: Epigastric abdominal pain, ibuprofen 800 mg 2-3 tablets a day, 2 packs of cigarette nicotine smoker, possibility of gastritis, peptic ulcer disease has to be ruled out. The patient at the present time undergoing supportive management, IV hydration and her urinalysis has been sent out with 1+ bacteria and if she is still holding as inpatient by Wednesday morning, we are going to do an EGD on her. Thank you very much at present time. PPI, Protonix, supportive measures. [place], [place] REPORT OF CONSULTATION NAME: GABRIELA GARNER UNIT #: [id number] ROOM: 406 DOCTOR: WILLIAN HARTMAN,HANNAH BIRTHDATE: [birth year] OTHER ADJUNCTIVE DIAGNOSES: As outlined in paragraph of past medical, surgical history. HANNAH DORSEY MD CM:CONSTR:REPORT OF CONSULTATION 19 11/04/18 0752 interface
[~2018-10-11 18:48] MED LIST changes: +NARCAN4 MG NAS; +OXYCODON-ACETA1 EACH PO; +ZALEPLON10 MG PO
[2018-10-11 18:49] VITALS: BP 166/87
[2018-10-11 19:23] LABS: BASO # 0.1 10*3/uL (0.0-0.1); BASO % 0.9 % (0.0-1.0); EOS % 0.3 % (1.0-4.0); HEMATOCRIT 42.1 % (37.0-47.0); HEMOGLOBIN 14.3 g/dl (12.0-16.0); LYMPH # 2.3 10*3/uL (1.3-4.4); MEAN CELL VOLUME 92.3 fl (81.0-99.0); MEAN CORPUSCULAR HGB 31.4 pg (27.0-31.0); MEAN PLATELET VOLUME 9.5 fl (9.6-12.3); MONO # 0.7 10*3/uL (0.1-1.0); MONO % 7.2 % (3.0-9.0); NEUT # 7.1 10*3/uL (2.3-7.9); NEUT % 69.4 % (47.0-73.0); PLATELET COUNT AUTOMATED 441 10*3/uL (130-400); RED BLOOD COUNT 4.56 10*6/uL (4.10-5.10); WHITE BLOOD COUNT 10.2 10*3/uL (4.8-10.8)
[2018-10-11 19:35] LABS: BILIRUBIN 1+ (NEGATIVE); BLOOD NEGATIVE (NEGATIVE); CLARITY SL CLOUDY (CLEAR); COLOR YELLOW (YELLOW); GLUCOSE NEGATIVE (NEGATIVE); KETONE 2+ (NEGATIVE); LEUKO ESTERASE NEGATIVE (NEGATIVE); NITRITE NEGATIVE (NEGATIVE); PH 8.5 (5.0-9.0)
[2018-10-11 19:36] LABS: ACT PARTIAL THROMBO TIME 25.5 SECONDS (20.0-32.1); INTERNATIONAL NORM RATIO 0.9 (2.0-3.5)
[2018-10-11 19:40] LABS: ALBUMIN 3.7 gm/dl (3.1-4.5); ALKALINE PHOSPHATASE 83 U/L (45-117); BUN 6 mg/dl (7-24); CHLORIDE 98 mmol/L (98-107); CREATININE 0.75 mg/dL (0.55-1.02); LIPASE 74 U/L (73-393); POTASSIUM 3.5 mmol/L (3.5-5.1); SGOT/AST 34 IU/L (3-35); SGPT/ALT 41 U/L (12-78); SODIUM 136 mmol/L (136-145); TOTAL PROTEIN 7.4 gm/dL (6.4-8.2)
[2018-10-11 19:42] LABS: TROPONIN I < 0.015 ng/ml (<0.045)
--- NOTE | 2018-10-11 19:45 | NUR ---
PATIENT RESTING IN BED AT THIS TIME WITH EYES CLOSED. PER PATIENT PAIN IS BETTER THEN WHEN SHE CAME IN THIS EVENING BUT STILL THERE. RESPIRATIONS EASY, NON-LABORED ON ROOM AIR. CALL LIGHT WITHIN REACH. RN WILL CONTINUE TO MONITOR.
--- NOTE | 2018-10-11 19:48 | NUR ---
JOHNY SCHMIDT AWARE OF CRITICAL LACTIC ACID 2.4
[2018-10-11 19:49] LABS: BACTERIA 1+; MUCOUS 2+
--- NOTE | 2018-10-11 21:45 | NUR ---
PER PATIENT NAUSEA MEDICATION DID NOT HELP AT ALL. PATIENT RESTING IN BED WITH LIGHTS TURNED DOWN AND TV ON. RESPIRATIONS EASY, NON-LABORED ON ROOM AIR. CALL LIGHT WITHIN REACH. IVF INFUSING PER ORDERS. RN WILL CONTINUE TO MONITOR.
[2018-10-11 22:31] VITALS: BP 156/75
[2018-10-11 22:35] VITALS: BP 120/72; BP 153/82
--- NOTE | 2018-10-11 22:35 | NUR ---
Time: 2234 A 57 year old FEMALE admitted to under services of DENISSE GARCÍA DO, Pt. arrived via wheel chair from ER. Chief complaint: ABDOMINAL PAIN & NAUSEA. EILEEN AUSTIN
[2018-10-11] MEDS ORDERED: LUNESTA2 MG PO (22:52)
[2018-10-11] MEDS ORDERED: TRELEGY ELLIPT1 EACH INH (22:55)
--- NOTE | 2018-10-11 23:01 | NUR ---
MED REC UP TO DATE PER PT RECALL.
--- NOTE | 2018-10-11 23:06 | NUR ---
PAULINO VIEIRA (DAUGHTER/POA) - [phone]
--- NOTE | 2018-10-11 23:59 | NUR ---
IV MORPHINE ADMINISTERED SLOWLY PER PRN ORDER FOR C/O ABD PAIN RATED 9/10. PT STATES PAIN IS ALL OVER, BUT MOSTLY IN UPPER QUADRANTS. IV ZOFRAN ALSO ADMINISTERED AT THIS TIME FOR C/O NAUSEA. WILL MONITOR. CALL LIGHT LEFT IN REACH.
--- NOTE | 2018-10-12 01:15 | NUR ---
IV FLUIDS INITIATED PER ORDER. NEW IV SITE STARTED IN L FOREARM. IV SITE TO R WRIST STILL PATENT WITH +BLOOD RETURN, BUT PATIENT REQUESTED THAT IV FLUIDS BE CONNECTED TO A DIFFERENT SITE. IV PHENERGAN ALSO INITIATED AT THIS TIME VIA INFUSION PUMP PER PRN ORDER. PT STATES EARLIER MORPHINE EFFECTIVE FOR PAIN, BUT SHE IS STILL FEELING NAUSEOUS. WILL MONITOR EFFECTIVENESS. CALL LIGHT LEFT IN REACH.
--- NOTE | 2018-10-12 01:43 | NUR ---
NOTIFIED OF PATIENT'S HOME MED REC UP TO DATE PER PT RECALL & PT'S REQUEST FOR HOME LUNESTA. INSTRUCTED TO ORDER LUNESTA PT TAKES AT HOME. WHEN ORDERING MEDICATION, AMBIEN AUTO-SUBSTITUTED FOR LUNESTA, LUNESTA IS NON-FORMULARY. CLARIFIED THIS WITH [facility]. PATIENT AGREEABLE TO TAKE AMBIEN IN PLACE OF LUNESTA DURING HOSPITAL STAY. WILL ADMINISTER WHEN MEDICATION IS VERIFIED BY PHARMACY.
--- NOTE | 2018-10-12 01:45 | NUR ---
PATIENT STATES EARLIER PHENERGAN WAS EFFECTIVE. PATIENT STATES SHE FEELS MUCH LESS NAUSEOUS. RATING PAIN IN ABDOMEN 6/10, DOWN FROM 9/10. DENIES NEED FOR FURTHER PAIN MEDICATION. WILL MONITOR. CALL LIGHT LEFT IN REACH.
--- NOTE | 2018-10-12 02:28 | NUR ---
CALLED [facility] TO CLARIFY AMBIEN DOSE. STATES THEY WILL REVIEW ORDER. STATES AMBIEN SHOULD BE 5 OR 10 MG. WILL WAIT FOR PHARMACY EDIT.
[2018-10-12 03:30] VITALS: BP 120/72
--- NOTE | 2018-10-12 03:35 | NUR ---
PT MEDICATED WITH PO AMBIEN PER ORDER FOR C/O INSOMNIA. PO NORCO ALSO ADMINISTERED PER ORDER FOR C/O PAIN IN ABDOMEN RATED 7/10. WILL MONITOR CALL LIGHT LEFT IN REACH.
[2018-10-12 06:22] LABS: BUN 4 mg/dl (7-24); CHLORIDE 108 mmol/L (98-107); CREATININE 0.62 mg/dL (0.55-1.02); PHOSPHOROUS 2.6 mg/dL (2.5-4.9); POTASSIUM 3.8 mmol/L (3.5-5.1); SODIUM 141 mmol/L (136-145)
[2018-10-12 08:00] VITALS: BP 130/66
--- NOTE | 2018-10-12 08:00 | NUR ---
MEDICATED WITH NORCO PO PER PRN ORDER, SEE EMAR. FOR C/O ABOMINAL PAIN, RATES PAIN 9 ON PAIN SCALE 0-10. ALSO C/O NAUSEA, MEDICATED WITH ZOFRAN IV PER PRN ORDER, SEE EMAR. CALL LIGHT IN REACH. SEE SHIFT ASSESSMENT.
--- NOTE | 2018-10-12 09:00 | NUR ---
RESTING IN BED. MEDICATION EFFECTIVE. NO NEW C/O AT THIS TIME. CALL LIGHT IN REACH.
--- NOTE | 2018-10-12 10:20 | NUR ---
PT C/O ABDOMINAL PAIN ACROSS UPPER ABDOMIN. MEDICATED WITH MORPHINE IV PER PRN ORDER, SEE EMAR. RATES PAIN 9 ON PAIN SCALE 0-10. CALL LIGHT IN REACH.
--- NOTE | 2018-10-12 10:35 | NUR ---
CALLED DR. SÁNCHEZ MADE AWARE PT NEEDS HOME MEDICATIONS ORDERED.
--- NOTE | 2018-10-12 10:39 | NUR ---
VERIFIED MEDICATIONS WITH PT PER DR. SÁNCHEZ.
--- NOTE | 2018-10-12 10:52 | NUR ---
CALLED DR. FREEMAN CELL PHONE LEFT MESSAGE TO CALL. ABOUT CONSULT.
[2018-10-12 12:00] VITALS: BP 139/71
--- NOTE | 2018-10-12 12:53 | NUR ---
DR. SÁNCHEZ AWARE PT MEDS ARE UPDATED AND NEED ORDERED.
--- NOTE | 2018-10-12 14:33 | NUR ---
Manager Route in to talk to patient. Patient states lives at HOME with ALONE. There are FEW steps in the home. Physician: Tonie FINCH [facility]acy: [facility] Home health services: NONE Patient's level of ADLs: INDEPENDENT Patient has working utilities: YES DME: [facility] Follow-up physician's appointment after d/c: WILL BE MADE BY HOSPITALIST NURSE DIRECTOR ON DISCHARGE Does patient want to access PORTAL?: NO Discharge plan PT LIVES AT HOME ALONE AND INDEPENDENT IN HER CARE. STATES SHE IS CURRENTLY GOING TO A PAIN CONTROL CLINIC. DENIES HOME NEEDS. WILL CONTINUE TO FOLLOW. WILL HAVE A RIDE HOME. GRISEL GUNTER
--- NOTE | 2018-10-12 14:35 | NUR ---
PT C/O BILATERAL UPPER QUAD ABDOMINAL PAIN, RATES PAIN 10 ON PAIN SCALE 0-10. MEDICATED WITH NORCO PO PER PRN ORDER, SEE EMAR. ALSO MEDICATED WITH ZOFRAN IV PER PRN ORDER FOR NAUSEA. CALL LIGHT IN REACH.
[2018-10-12 16:00] VITALS: BP 117/64
--- NOTE | 2018-10-12 18:14 | NUR ---
PT C/O UPPER ABDOMINAL PAIN, RATES PAIN 9 ON PAIN SCALE 0-10. MEDICATED WITH NORCO PO PER PRN ORDER, SEE EMAR. CALL LIGHT IN REACHJ.
--- NOTE | 2018-10-12 18:14 | NUR ---
PT RESTING IN BED. C/O ABDOMINAL PAIN, RATES PAIN 9 ON PAIN SCALE 0-10. MEDICATED WITH NORCO PO PER PRN ORDER, SEE EMAR. CALL LIGHT IN REACH.
[2018-10-12 20:00] VITALS: BP 145/78
--- NOTE | 2018-10-12 20:23 | NUR ---
HERE TO SEE PT. NEW ORDERS RECEIVED FOR NPO AT MIDNIGHT TOMORROW NIGHT FOR EGD Friday10/14/18.
--- NOTE | 2018-10-12 22:25 | NUR ---
CALLED DR. WEAVER PT C/O OF [place] NOT WORKING STATES SHE TAKES PERCOCET AT HOME FOR CHRONIC BACK PAIN AND BACK SURGERY. WANTS PERCOCET. ORDER TAKEN AND REVIEWED.
--- NOTE | 2018-10-12 22:30 | NUR ---
MEDICATED WITH ZOFRAN IV PER PRN ORDER, SEE EMAR. FOR C/O NAUSEA. CALL LIGHT IN REACH.
--- NOTE | 2018-10-12 23:35 | NUR ---
ASSUMED CARE OF PT AT THIS TIME. PT MEDICATED WITH PO PERCOCET PER PRN ORDER FOR C/O UPPER ABD PAIN RATED 7/10. WILL MONITOR EFFECTIVENESS. CALL LIGHT IN REACH.
[2018-10-13] VITALS: BP 147/75
--- NOTE | 2018-10-13 03:28 | NUR ---
PT ASLEEP IN BED. RESPIRATIONS EASY. NO S/S OF DISTRESS NOTED. WILL MONITOR. CALL LIGHT IN REACH.
--- NOTE | 2018-10-13 07:55 | NUR ---
PT C/O UPPER QUAD ABDOMINAL PAIN, RATES PAIN 9 ON PAIN SCALE 0-10. MEDICATED WITH PERCOCET PO PER PRN ORDER, SEE EMAR. ALSO C/O NAUSEA. MEDICATED WITH ZOFRAN IV PER PRN ORDER, SEE EMAR. CALL LIGHT IN REACH. SEE SHIFT ASSESSMENT.
[2018-10-13 08:00] VITALS: BP 150/82
--- NOTE | 2018-10-13 09:00 | NUR ---
STATES MEDICATION HELP. CALL LIGHT IN REACH.
[2018-10-13 09:22] LABS: BASO # 0.1 10*3/uL (0.0-0.1); BASO % 0.9 % (0.0-1.0); EOS # 0.1 10*3/uL (0.0-0.4); EOS % 1.4 % (1.0-4.0); HEMATOCRIT 41.6 % (37.0-47.0); HEMOGLOBIN 13.6 g/dl (12.0-16.0); LYMPH # 2.8 10*3/uL (1.3-4.4); LYMPH % 28.1 % (27.0-41.0); MEAN CELL VOLUME 93.5 fl (81.0-99.0); MEAN CORPUSCULAR HGB 30.6 pg (27.0-31.0); MEAN CORPUSCULAR HGB CONC 32.7 g/dl (33.0-37.0); MEAN PLATELET VOLUME 9.4 fl (9.6-12.3); MONO # 0.7 10*3/uL (0.1-1.0); MONO % 6.9 % (3.0-9.0); NEUT # 6.2 10*3/uL (2.3-7.9); NEUT % 62.5 % (47.0-73.0); NUCLEATED RED BLOOD CELL 0.2 % (0.0-0.0); PLATELET COUNT AUTOMATED 371 10*3/uL (130-400); RED BLOOD COUNT 4.45 10*6/uL (4.10-5.10); RED CELL DISTRI WIDTH 14.1 % (0-14.5); WHITE BLOOD COUNT 9.9 10*3/uL (4.8-10.8)
[2018-10-13 09:44] LABS: ALBUMIN 3.6 gm/dl (3.1-4.5); ALKALINE PHOSPHATASE 79 U/L (45-117); BUN 9 mg/dl (7-24); CHLORIDE 106 mmol/L (98-107); CREATININE 0.83 mg/dL (0.55-1.02); POTASSIUM 3.3 mmol/L (3.5-5.1); SGOT/AST 33 IU/L (3-35); SGPT/ALT 49 U/L (12-78); SODIUM 139 mmol/L (136-145); TOTAL PROTEIN 6.8 gm/dL (6.4-8.2)
--- NOTE | 2018-10-13 10:00 | NUR ---
TOLERATED ROUTINE MED WITH NO PROBLEM. CALL LIGHT IN REACH.
[2018-10-13 12:00] VITALS: BP 155/82
--- NOTE | 2018-10-13 13:10 | NUR ---
PT CONTINUES TO DENY NEEDS AT HOME. WILL CONTINUE TO FOLLOW.
--- NOTE | 2018-10-13 14:02 | NUR ---
PT C/O UPPER QUAD PAIN RATES PAIN 9 ON PAIN SCALE 0-10. MEDICATED WITH MORPHINE IV PER PRN ORDER, SEE EMAR.
--- NOTE | 2018-10-13 14:13 | NUR ---
MEDICATED WITH ZOFRAN IV PER PRN ORDER, SEE EMAR. FOR C/O NAUSEA. IVF INFUSING WITH NO PROBLEM. CALL LIGHT IN REACH.
--- NOTE | 2018-10-13 15:00 | NUR ---
PT RESTING IN BED WITH EYES CLOSED. MEDICATION SEEMS TO BE EFFECTIVE. CALL LIGHT IN REACH.
[2018-10-13 16:00] VITALS: BP 168/86
--- NOTE | 2018-10-13 16:40 | NUR ---
PT C/O BACK PAIN, RATES PAIN 10 ON PAIN SCALE 0-10. MEDICATED WITH PERCOCET PO PER PRN ORDER, SEE EMAR. CALL LIGHT IN REACH.
--- NOTE | 2018-10-13 17:15 | NUR ---
PT RESTING IN BED. MEDICATION HELPED. CALL LIGHT IN REACH.
--- NOTE | 2018-10-13 18:00 | NUR ---
RESTING IN BED. NO C/O AT THIS TIME. CALL LIGHT IN REACH.
[2018-10-13 20:00] VITALS: BP 146/84
--- NOTE | 2018-10-13 22:04 | NUR ---
IV MORPHINE AND IV ZOFRAN ADMINISTERED FOR PAIN IN ABDOMEN RATED 9/10 AND NAUSEA. WILL MONITOR EFFECTIVENESS. CALL LIGHT LEFT IN REACH.
--- NOTE | 2018-10-13 22:47 | NUR ---
EARLIER MEDICATIONS "HELPED SOME." PATIENT REPORTS TO BE IN LESS PAIN AT THIS TIME. WILL MONITOR. CALL LIGHT IN REACH.
[2018-10-14] VITALS (7 sets, daily range): BP systolic 127–153; BP diastolic 55–86
--- NOTE | 2018-10-14 00:30 | NUR ---
PT MEDICATED WITH PO PERCOCET & PO DULCOLAX WITH SMALL SIPS OF WATER FOR C/O PAIN IN ABDOMEN RATED 8/10 AND CONSTIPATION. WILL MONITOR. CALL LIGHT IN REACH.
--- NOTE | 2018-10-14 02:57 | NUR ---
PATIENT ASLEEP IN BED. RESPIRATIONS EASY. NO S/S OF DISTRESS NOTED. WILL MONITOR. CALL LIGHT IN REACH.
[2018-10-14 06:35] LABS: ALBUMIN 3.2 gm/dl (3.1-4.5); BUN 3 mg/dl (7-24); CHLORIDE 109 mmol/L (98-107); POTASSIUM 3.3 mmol/L (3.5-5.1); SODIUM 141 mmol/L (136-145)
[2018-10-14 06:38] LABS: ALKALINE PHOSPHATASE 61 U/L (45-117); CREATININE 0.75 mg/dL (0.55-1.02); SGOT/AST 27 IU/L (3-35); SGPT/ALT 42 U/L (12-78); TOTAL PROTEIN 5.9 gm/dL (6.4-8.2)
--- NOTE | 2018-10-14 06:45 | NUR ---
IV MORPHINE & IV ZOFRAN GIVEN FOR C/O ABD PAIN RATED 9/10 & NAUSEA. WILL MONITOR EFFECTIVENESS. CALL LIGHT IN REACH.
--- NOTE | 2018-10-14 08:10 | NUR ---
PT RESTING IN BED. RESP-EASY AND REGULAR. NO C/O AT THIS TIME. IVF INFUSING WITH NO PROBLEM. CALL LIGHT IN REACH. SEE SHIFT ASSESSMENT.
--- NOTE | 2018-10-14 10:00 | NUR ---
TOLERATING IV POTASSIUM WITH NO PROBLEM. NO C/O AT THIS TIME. CALL LIGHT IN REACH.
--- NOTE | 2018-10-14 11:04 | NUR ---
PT CONTINUES TO DENY NEEDS WHEN DISCHARGED. WILL CONTINUE TO FOLLOW.
--- NOTE | 2018-10-14 12:40 | NUR ---
PT C/O ABDOMINAL PAIN, RATES PAIN 9 ON PAIN SCALE 0-10. ALSO C/O NAUSEA, MEDICATED WITH ZOFRAN IV PER PRN ORDER, SEE EMAR. CALL LIGHT IN REACH.
--- NOTE | 2018-10-14 13:30 | NUR ---
RESTING IN BED. STATES MEDICATION HELPED. CALL LIGHT IN REACH.
--- NOTE | 2018-10-14 14:35 | NUR ---
ESCORTED VIA BED TO SURGERY FOR PROCEDURE.
--- NOTE | 2018-10-14 16:50 | NUR ---
PT RESTING IN BED. IVF INFUSING WITH NO PROBLEM. NO C/O AT THIS TIME. PT TOLERATED ROUTINE MEDICATIONS. CALL LIGHT IN REACH. SEE SHIFT ASSESSMENT.
--- NOTE | 2018-10-14 20:02 | NUR ---
24 HR chart check completed.
--- NOTE | 2018-10-14 20:20 | NUR ---
RESTING IN BED WATCHING TV. RESPIRATIONS EASY. LUNGS DIMINISHED WITH COARSE WHEEZES. PULSE OX 99% RA. OFFERED AND EDUCATED REGARDING TEDS, DECLINED. IV FLUIDS INFUSING PER ORDER. CALL LIGHT WITHIN REACH.
--- NOTE | 2018-10-14 20:27 | NUR ---
REQUESTED AND RECEIVED MORPHINE AND ZOFRAN IV PER PRN ORDER FOR COMPLAINTS OF EPIGASTRIC PAIN RATING A 9 AND NAUSEA. CALL LIGHT WITHIN REACH. WILL MONITOR
--- NOTE | 2018-10-14 22:00 | NUR ---
EARLIER MEDS APPEAR EFFECTIVE. SLEEPING. RESPIRATIONS EASY. IV FLUIDS MAINTAINED
[2018-10-15] VITALS: BP 124/65
--- NOTE | 2018-10-15 | NUR ---
SLEEPING. RESPIRATIONS EASY. VSS. IV FLUIDS MAINTAINED. CALL LIGHT WITHIN REACH.
--- NOTE | 2018-10-15 03:50 | NUR ---
UPON AWAKENING, PATIENT CALLS OUT C/O EPIGASTRIC PAIN RATING AN 8 AND NAUSEA. REQUESTED AND RECEIVED MORPHINE AND ZOFRAN PER PRN ORDER. CALL LIGHT WITHIN REACH. WILL MONITOR FOR EFFECTIVENESS
--- NOTE | 2018-10-15 05:00 | NUR ---
EARLIER MEDS APPEAR EFFECTIVE. SLEEPING. RESPIRATIONS EASY. CALL LIGHT WITHIN REACH
[2018-10-15 06:42] LABS: ALBUMIN 3.1 gm/dl (3.1-4.5); ALKALINE PHOSPHATASE 71 U/L (45-117); BUN 7 mg/dl (7-24); CHLORIDE 109 mmol/L (98-107); CREATININE 0.72 mg/dL (0.55-1.02); POTASSIUM 3.6 mmol/L (3.5-5.1); SGOT/AST 25 IU/L (3-35); SGPT/ALT 44 U/L (12-78); SODIUM 144 mmol/L (136-145); TOTAL PROTEIN 6.1 gm/dL (6.4-8.2)
[2018-10-15 08:00] VITALS: BP 154/84
--- NOTE | 2018-10-15 08:36 | NUR ---
PT GIVEN 2 MG MORPHINE IV AT THIS TIME FOR C/O ABDOMINAL PAIN THAT SHE RATES A "9". WILL MONITOR FOR EFFECTIVENESS. PT CURRENTLY SITTING UP IN BED, ASSESSMENT COMPLETE. NO OTHER COMPLAINTS VOICED. PT EATING BREAKFAST, CALL LIGHT IN REACH.
[2018-10-15 08:38] VITALS: BP 132/80
--- NOTE | 2018-10-15 09:59 | NUR ---
PT C/O NAUSEA. ZOFRAN 4 MG GIVEN AT THIS TIME. PT ALSO C/O CONSTIPATION. BISCODYL GIVEN. WILL MONITOR. CALL LIGHT IN REACH. PT SITTING UP IN BED, READING NEWSPAPER. CALL LIGHT IN REACH.
[2018-10-15 12:00] VITALS: BP 136/74
--- NOTE | 2018-10-15 12:34 | NUR ---
WILL RETURN HOME WITH NO NEEDS. WILL CONTINUE TO FOLLOW.
--- NOTE | 2018-10-15 13:26 | NUR ---
PT C/O NAUSEA AND ABDOMINAL PAIN. PHENERGAN AND MORPHINE GIVEN AT THIS TIME. WILL MONITOR FOR FOR EFFECTIVENESS. PT LYING IN BED. CALL LIGHT IN REACH.
--- NOTE | 2018-10-15 14:26 | NUR ---
MORPHINE AND PHENERGAN EFFECTIVE PER PT.
[2018-10-15 16:00] VITALS: BP 158/74
--- NOTE | 2018-10-15 16:41 | NUR ---
PT GIVEN PERCOCET FOR C/O ABDOMINAL PAIN. PT GIVEN ZOFRAN FOR NAUSEA. WILL MONITOR FOR EFFECTIVENESS. PT HAD BISCODYL EARLIER IN SHIFT. NOT EFFECTIVE YET, WILL CONTINUE TO MONITOR. PT SITTING UP IN BED, CALL LIGHT IN REACH.
--- NOTE | 2018-10-15 18:39 | NUR ---
PT GIVEN MORPHINE AT THIS TIME FOR C/O ABDOMINAL PAIN. WILL MONITOR FOR EFFECTIVENESS. PT LYING IN BED, ALL SAFETY MEASURES IN PLACE. CALL LIGHT IN REACH.
[2018-10-15 20:00] VITALS: BP 162/84
--- NOTE | 2018-10-15 20:28 | NUR ---
PHENERGAN GIVEN PER ORDER FOR NAUSEA SEE MAR.
--- NOTE | 2018-10-15 21:28 | NUR ---
PHENERGAN EFFECTIVE FOR NAUSEA PER PT.
--- NOTE | 2018-10-15 22:45 | NUR ---
MORPHINE GIVEN PER ORDER FOR EPIGASTRIC PAIN RATED "7". SEE MAR.
--- NOTE | 2018-10-15 23:45 | NUR ---
MORPHINE EFFECTIVE FOR EPIGASTRIC PAIN PER PT.
[2018-10-16] VITALS: BP 162/94
--- NOTE | 2018-10-16 01:00 | NUR ---
PERCOCET GIVEN FOR MID EPIGASTRIC PAIN RATED "6" AND ZOFRAN GIVEN FOR NAUSEA PER PT. REQUEST. SEE MAR.
--- NOTE | 2018-10-16 02:00 | NUR ---
ZOFRAN EFFECTIVE FOR NAUSEA. PERCOCET EFFECTIVE FOR PAIN.
--- NOTE | 2018-10-16 02:14 | NUR ---
24 HR chart check completed.
[2018-10-16 03:20] VITALS: BP 142/84
--- NOTE | 2018-10-16 03:22 | NUR ---
MORPHINE GIVEN PER ORDER FOR EPIGASTRIC PAIN RATED "7". SEE MAR.
--- NOTE | 2018-10-16 04:20 | NUR ---
MORPHINE EFFECTIVE FOR PAIN PER PT. PT. UP TO BATHROOM AND BACK TO BED.
[2018-10-16 06:18] LABS: BASO # 0.1 10*3/uL (0.0-0.1); BASO % 1.5 % (0.0-1.0); EOS # 0.3 10*3/uL (0.0-0.4); EOS % 3.9 % (1.0-4.0); HEMOGLOBIN 13.1 g/dl (12.0-16.0); LYMPH # 3.3 10*3/uL (1.3-4.4); LYMPH % 45.3 % (27.0-41.0); MEAN CELL VOLUME 94.1 fl (81.0-99.0); MEAN CORPUSCULAR HGB 30.8 pg (27.0-31.0); MEAN CORPUSCULAR HGB CONC 32.8 g/dl (33.0-37.0); MEAN PLATELET VOLUME 9.7 fl (9.6-12.3); MONO # 0.6 10*3/uL (0.1-1.0); MONO % 7.9 % (3.0-9.0); NEUT % 41.3 % (47.0-73.0); PLATELET COUNT AUTOMATED 357 10*3/uL (130-400); RED BLOOD COUNT 4.25 10*6/uL (4.10-5.10); RED CELL DISTRI WIDTH 14.3 % (0-14.5); WHITE BLOOD COUNT 7.4 10*3/uL (4.8-10.8)
[2018-10-16 08:00] VITALS: BP 138/76
[2018-10-16] MEDS ORDERED: ZOFRAN4 MG PO (10:56)
--- NOTE | 2018-10-16 11:09 | NUR ---
PT STATES SHE WILL GO HOME ON DISCHARGE AND WILL HAVE NO NEEDS. WILL CONTINUE TO FOLLOW.
[2018-10-16] MEDS ORDERED: GAVISCON ES TA1 EACH PO (11:22)
[2018-10-16 11:27] VITALS: BP 143/68
--- NOTE | 2018-10-16 12:55 | NUR ---
Discharge instructions reviewed with patient/family. Patient receptive and verbalizes understanding. Follow-up care arranged. Written instructions given to patient/family. LISBETH GUNTER
== END 2018-10-16 12:55 | disposition home or self-care (01) | DRG 378 ==
LOC: ED 18:48 → EDHOLD 21:57 → 4E 21:57
PROVIDERS: Internal Medicine; Physician Assistant; Student in an Organized Health Care Education/Training Program; ADMIT Internal Medicine
PROC: 0DB78ZX Excision of Stomach, Pylorus, Via Natural or Artificial Opening Endoscopic, Diagnostic (ICD-10-PCS; principal; 2018-10-14)
DX: K29.71 Gastritis, unspecified, with bleeding (principal); J96.10 Chronic respiratory failure, unspecified whether with hypoxia or hypercapnia; K29.81 Duodenitis with bleeding; K59.00 Constipation, unspecified; E86.0 Dehydration; D72.810 Lymphocytopenia; E83.51 Hypocalcemia; J44.9 Chronic obstructive pulmonary disease, unspecified; F41.1 Generalized anxiety disorder; F32.9 Major depressive disorder, single episode, unspecified; M54.5 Low back pain; G89.29 Other chronic pain; I10 Essential (primary) hypertension; D47.3 Essential (hemorrhagic) thrombocythemia; M81.0 Age-related osteoporosis without current pathological fracture; F17.210 Nicotine dependence, cigarettes, uncomplicated; R80.9 Proteinuria, unspecified; E87.6 Hypokalemia; R82.4 Acetonuria; G43.909 Migraine, unspecified, not intractable, without status migrainosus; R82.2 Biliuria; K21.9 Gastro-esophageal reflux disease without esophagitis; R82.71 Bacteriuria; Z71.6 Tobacco abuse counseling; Z88.1 Allergy status to other antibiotic agents; Z88.6 Allergy status to analgesic agent; Z88.8 Allergy status to other drugs, medicaments and biological substances; Z90.49 Acquired absence of other specified parts of digestive tract; Z90.710 Acquired absence of both cervix and uterus; Z98.42 Cataract extraction status, left eye; Z98.41 Cataract extraction status, right eye; Z82.5 Family history of asthma and other chronic lower respiratory diseases; Z82.49 Family history of ischemic heart disease and other diseases of the circulatory system; Z82.3 Family history of stroke; Z83.3 Family history of diabetes mellitus; Z83.2 Family history of diseases of the blood and blood-forming organs and certain disorders involving the immune mechanism; Z85.41 Personal history of malignant neoplasm of cervix uteri; Z79.899 Other long term (current) drug therapy

== ENCOUNTER → 2019-03-04 | Outpatient (CLI) | payer OTHER ==
[~2019-03-04] MED LIST changes: +ATARAX,VISTARIL50 MG PO; +CELEXA40 MG PO; +DOXYCYCLINE MO100 M1 PO; +GAVISCON ES TA1 EACH PO; +LUNESTA2 MG PO; +MUCINEX1200 M1 PO; +PERCOCET 7.5-31 EACH PO; +TRELEGY ELLIPT1 EACH INH
[2019-03-04 13:02] VITALS: BP 133/71
== END | disposition home or self-care (01) ==
LOC: INJECTION 00:29
DX: M81.0 Age-related osteoporosis without current pathological fracture (principal); F41.9 Anxiety disorder, unspecified; F32.9 Major depressive disorder, single episode, unspecified; J43.9 Emphysema, unspecified; J45.909 Unspecified asthma, uncomplicated; F17.210 Nicotine dependence, cigarettes, uncomplicated; Z90.710 Acquired absence of both cervix and uterus; Z85.41 Personal history of malignant neoplasm of cervix uteri

== ENCOUNTER 2019-03-15 14:03 | Inpatient (IN) | payer OTHER ==
[~2019-03-15] VITALS: Ht 160 cm; Wt 57.2 kg
[2019-03-15 14:03] VITALS: BP 129/79
[~2019-03-15 14:03] MED LIST changes: -ATARAX,VISTARIL50 MG PO; -CELEXA40 MG PO; -DOXYCYCLINE MO100 M1 PO; -MUCINEX1200 M1 PO; -PERCOCET 7.5-31 EACH PO
[2019-03-15 15:38] LABS: BASO # 0.1 10*3/uL (0.0-0.1); BASO % 0.5 % (0.0-1.0); EOS # 0.1 10*3/uL (0.0-0.4); EOS % 0.4 % (1.0-4.0); HEMATOCRIT 37.6 % (37.0-47.0); HEMOGLOBIN 12.5 g/dl (12.0-16.0); LYMPH # 2.9 10*3/uL (1.3-4.4); LYMPH % 19.8 % (27.0-41.0); MEAN CELL VOLUME 90.4 fl (81.0-99.0); MEAN CORPUSCULAR HGB CONC 33.2 g/dl (33.0-37.0); MEAN PLATELET VOLUME 8.6 fl (9.6-12.3); MONO # 0.9 10*3/uL (0.1-1.0); MONO % 5.9 % (3.0-9.0); NEUT # 10.7 10*3/uL (2.3-7.9); NEUT % 73.1 % (47.0-73.0); PLATELET COUNT AUTOMATED 622 10*3/uL (130-400); RED BLOOD COUNT 4.16 10*6/uL (4.10-5.10); RED CELL DISTRI WIDTH 12.8 % (0-14.5); WHITE BLOOD COUNT 14.6 10*3/uL (4.8-10.8)
[2019-03-15 16:00] LABS: BILIRUBIN NEGATIVE (NEGATIVE); BLOOD NEGATIVE (NEGATIVE); CLARITY SL CLOUDY (CLEAR); COLOR YELLOW (YELLOW); GLUCOSE NEGATIVE (NEGATIVE); KETONE NEGATIVE (NEGATIVE); LEUKO ESTERASE NEGATIVE (NEGATIVE); NITRITE NEGATIVE (NEGATIVE); SPECIFIC GRAVITY 1.015 (1.005-1.030); UROBILINOGEN 0.2 E.U./dl (0.2-1.0)
[2019-03-15 16:03] VITALS: BP 160/87
[2019-03-15 16:11] LABS: BACTERIA TRACE; EPITHELIAL CELLS 0-2; WBC 0-2 wbc/hpf (0-5)
[2019-03-15 16:14] LABS: ALBUMIN 2.8 gm/dl (3.1-4.5); ALKALINE PHOSPHATASE 104 U/L (45-117); BUN 6 mg/dl (7-24); CHLORIDE 99 mmol/L (98-107); POTASSIUM 4.4 mmol/L (3.5-5.1); SGOT/AST 10 IU/L (3-35); SGPT/ALT 14 U/L (12-78); SODIUM 132 mmol/L (136-145); TOTAL PROTEIN 7.8 gm/dL (6.4-8.2); TROPONIN I < 0.015 ng/ml (<0.045)
[2019-03-15 16:43] VITALS: BP 142/97
[2019-03-15 17:39] VITALS: BP 136/84
[2019-03-15 17:45] VITALS: BP 136/90
--- NOTE | 2019-03-15 17:45 | NUR ---
Time: A 58 year old FEMALE admitted to 4E under services of VERENICE PALMER DO. Pt. arrived via bed from ER. Chief complaint: COPD EXACERBATION. SANTOS ANDRE
[2019-03-15] MEDS ORDERED: ATARAX,VISTARIL50 MG PO (18:11)
[2019-03-15] MEDS ORDERED: CELEXA40 MG PO (18:11)
--- NOTE | 2019-03-15 18:25 | NUR ---
CALLED DR. STAUFFER AWARE OF CONSULT. NO NEW ORDERS.
--- NOTE | 2019-03-15 18:30 | NUR ---
RESTING IN BED. NO C/O AT THIS TIME. CALL LIGHT IN REACH.
[2019-03-15 20:00] VITALS: BP 136/90
--- NOTE | 2019-03-15 21:50 | NUR ---
PATIENT REQUESTING A SLEEPING PILL. NOTIFIED DR. CHADWICK, SEE NEW ORDERS.
[2019-03-16] VITALS: BP 99/65
[2019-03-16 06:43] LABS: BASO % 0.1 % (0.0-1.0); EOS # 0.2 10*3/uL (0.0-0.4); EOS % 2.2 % (1.0-4.0); HEMATOCRIT 36.7 % (37.0-47.0); HEMOGLOBIN 12.1 g/dl (12.0-16.0); LYMPH # 1.1 10*3/uL (1.3-4.4); LYMPH % 11.5 % (27.0-41.0); MEAN CELL VOLUME 90.4 fl (81.0-99.0); MEAN CORPUSCULAR HGB 29.8 pg (27.0-31.0); MONO # 0.3 10*3/uL (0.1-1.0); MONO % 3.4 % (3.0-9.0); NEUT # 7.9 10*3/uL (2.3-7.9); NEUT % 82.6 % (47.0-73.0); PLATELET COUNT AUTOMATED 613 10*3/uL (130-400); RED BLOOD COUNT 4.06 10*6/uL (4.10-5.10); RED CELL DISTRI WIDTH 12.8 % (0-14.5); WHITE BLOOD COUNT 9.6 10*3/uL (4.8-10.8)
[2019-03-16 07:05] LABS: ALBUMIN 2.7 gm/dl (3.1-4.5); BUN 9 mg/dl (7-24); CHLORIDE 102 mmol/L (98-107); CHOLESTEROL 115 mg/dL (<200); CREATININE 0.68 mg/dL (0.55-1.02); PHOSPHOROUS 1.9 mg/dL (2.5-4.9); POTASSIUM 5.1 mmol/L (3.5-5.1); SGOT/AST 10 IU/L (3-35); SGPT/ALT 12 U/L (12-78); SODIUM 131 mmol/L (136-145); TRIGLYCERIDES 87 mg/dl (<150); VLDL CHOLESTEROL 17 mg/dL (6-40)
[2019-03-16 07:21] LABS: ALKALINE PHOSPHATASE 99 U/L (45-117); HDL CHOLESTEROL 35 mg/dl (40-60); LDL CHOLESTEROL 63 mg/dL (9-159); TOTAL PROTEIN 7.3 gm/dL (6.4-8.2)
[2019-03-16 07:50] LABS: THYROID STIM HORMONE (HS) 0.255 uIU/ml (0.358-4.75)
--- NOTE | 2019-03-16 07:50 | NUR ---
PT RESTING IN BED. RESP-EASY AND REGULAR. NO C/O AT THIS TIME. PROD COUGH FOR CLEAR THIS AM PER PT. CALL LIGHT IN REACH. SEE SHIFT ASSESSMENT.
[2019-03-16 08:00] VITALS: BP 117/75
--- NOTE | 2019-03-16 09:00 | NUR ---
Footwear Sales Leader in to talk to patient. Patient states lives at home with alone. There are few steps in the home. Physician: sandi aquino [facility]acy[facility] Home health services: none Patient's level of ADLs: INDEPENDENT Patient has working utilities: all working DME: [employer] oxygen she uses at night, nebulizer, she thinks her company is [employer] Follow-up physician's appointment after d/c: will be made by hospitalist nurse director upon discharge Does patient want to access PORTAL?: no Discharge plan discussed with patient, she states she lives at home alone she is independent in adls and ambulation, she has home oxygen she wears at hs she states she will return home when medically stable and denies any home needs ISAC EDGAR
[2019-03-16] MEDS ORDERED: NEURONTIN800 MG PO (09:21)
[2019-03-16] MEDS ORDERED: PERCOCET 7.5-31 EACH PO (09:21)
--- NOTE | 2019-03-16 09:41 | NUR ---
CALLED DR. ERICKSON REGARDING PT NEEDING NEURONTIN AND PERCOCET HER HOME MEDICATIONS, HE WILL TAKE CARE OF IT. ALSO ORDER FOR SMOKING PATCH.
--- NOTE | 2019-03-16 10:00 | NUR ---
TOLERATED ROUTINE MEDS WITH NO PROBLEM. CALL LIGHT IN REACH.
--- NOTE | 2019-03-16 10:43 | NUR ---
MEDICATED WITH NORCO PO PER PRN ORDER, SEE EMAR. FOR C/O BACK PAIN, RATES PAIN 9 ON PAIN SCALE 0-10. CALL LIGHT IN REACH.
--- NOTE | 2019-03-16 11:39 | NUR ---
MEDICATED WITH TORADOL IV PER ORDER, SEE EMAR. FOR C/O BACK/RIB PAIN, RATES PAIN 9 ON PAIN SCALE 0-10. ALSO APPLIED NICOTINE PATCH PER ORDER AND PT REQUEST. CALL LIGHT IN REACH. VISITOR AT HER SIDE.
[2019-03-16 12:00] VITALS: BP 111/70
--- NOTE | 2019-03-16 12:31 | NUR ---
PT C/O BACK PAIN /RIB PAIN, RATES PAIN 9 ON PAIN SCALE 0-10. STTES TORADOL DIDN'T HELP. CALL LIGHT IN REACH.
--- NOTE | 2019-03-16 14:50 | NUR ---
PT MEDICATED WITH ROUTINE TORADOL. C/O MID BACK/RIB PAIN, RATES PAIN 8 ON PAIN SCALE 0-10. CALL LIGHT IN REACH.
--- NOTE | 2019-03-16 15:30 | NUR ---
RESTING IN BED. STATES PAIN MEDICATIONS HELPED ALITTLE. CALL LIGHT IN REACH.
[2019-03-16 16:00] VITALS: BP 124/75
--- NOTE | 2019-03-16 16:00 | NUR ---
PT RESTING IN BED. RESP-EASY AND REGULAR. TOLERATED ROUTINE MED WITH NO PROBLEM. CALL LIGHT IN REACH. SEE SHIFT ASSESSMENT.
--- NOTE | 2019-03-16 18:15 | NUR ---
IV started right forearm with #22 angiocath after 1 attempts. The IV site was prepped with Chloraprep. Heparin lock attached. Sterile dressing applied. Patient tolerated precedure well. Procedure performed according to [facility] policy & procedure. SANTOS ANDRE
[2019-03-16 20:00] VITALS: BP 127/72
--- NOTE | 2019-03-16 20:50 | NUR ---
PO PERCOCET ADMINISTERED FOR C/O CHRONIC BACK PAIN RATED 9/10. WILL MONITOR EFFECTIVENESS. CALL BRIA CHESTER.
--- NOTE | 2019-03-16 21:46 | NUR ---
NOTIFIED OF PT'S REQUEST FOR SOMETHING TO HELP HER SLEEP. PT STATES SHE TAKES LUNESTA AT HOME. ONE TIME DOSE OF AMBIEN WAS GIVEN LAST NIGHT. NEW ORDER RECEIVED FOR AMBIEN PO 5 MG X 1 DOSE NOW.
--- NOTE | 2019-03-16 22:20 | NUR ---
PO AMBIEN ADMINISTERED PER ONE TIME DOSE FOR C/O INSOMNIA. SCHEDULED IV TORADOL ALSO ADMINISTERED PER ORDER. PT C/O BACK PAIN RATED 9/10. STATES EARLIER PERCOCET DID NOT HELP. WILL MONITOR EFFECTIVENESS OF MEDS. CALL LIGHT IN REACH.
[2019-03-17] VITALS: BP 113/64
--- NOTE | 2019-03-17 01:26 | NUR ---
PT ASLEEP IN BED. RESPIRATIONS EASY. NO S/S OF DISTRESS NOTED. EARLIER MEDICATIONS APPEAR EFFECTIVE. WILL MONITOR. CALL LIGHT IN REACH.
--- NOTE | 2019-03-17 04:44 | NUR ---
PT MEDICATED WITH PO PERCOCET PER PRN ORDER FOR C/O CHRONIC BACK PAIN RATED 9/10. PT ALSO REQUESTING AM MEDICATIONS AT THIS TIME. WILL MONITOR EFFECTIVENESS. CALL LIGHT IN REACH.
[2019-03-17 06:29] LABS: CHLORIDE 104 mmol/L (98-107); CREATININE 0.85 mg/dL (0.55-1.02); FREE T4 0.95 ng/dl (0.76-1.46); POTASSIUM 4.7 mmol/L (3.5-5.1); SODIUM 133 mmol/L (136-145)
[2019-03-17 06:35] LABS: THYROID STIM HORMONE (HS) 0.329 uIU/ml (0.358-4.75)
--- NOTE | 2019-03-17 06:37 | NUR ---
PT ASLEEP IN BED. RESPIRATIONS EASY. EARLIER MEDS APPEAR EFFECTIVE. WILL MONITOR. CALL LIGHT IN REACH.
[2019-03-17 06:40] LABS: BASO % 0.2 % (0.0-1.0); HEMATOCRIT 32.2 % (37.0-47.0); HEMOGLOBIN 10.5 g/dl (12.0-16.0); LYMPH # 2.6 10*3/uL (1.3-4.4); LYMPH % 11.2 % (27.0-41.0); MEAN CELL VOLUME 91.5 fl (81.0-99.0); MEAN CORPUSCULAR HGB 29.8 pg (27.0-31.0); MEAN CORPUSCULAR HGB CONC 32.6 g/dl (33.0-37.0); MEAN PLATELET VOLUME 8.8 fl (9.6-12.3); MONO # 1.4 10*3/uL (0.1-1.0); MONO % 6.1 % (3.0-9.0); NEUT # 18.6 10*3/uL (2.3-7.9); NEUT % 82.1 % (47.0-73.0); PLATELET COUNT AUTOMATED 524 10*3/uL (130-400); RED BLOOD COUNT 3.52 10*6/uL (4.10-5.10); RED CELL DISTRI WIDTH 13.1 % (0-14.5); WHITE BLOOD COUNT 22.7 10*3/uL (4.8-10.8)
[2019-03-17 06:42] LABS: BUN 18 mg/dl (7-24)
[2019-03-17 07:45] VITALS: BP 122/78
--- NOTE | 2019-03-17 08:21 | NUR ---
PATIENT MEDICATED WITH ZANAFLEX PER ORDER FOR COMPLAINTS OF PAIN IN BACK 11/04. WILL MONITOR FOR EFFECTIVENESS.
--- NOTE | 2019-03-17 08:30 | NUR ---
ASSESSMENT DOCUMENTED AND COMPLETED. PT RESTING IN BED. NO COMPLAINTS PER VOICE AT THIS TIME. ANDRES GIRON SPNR[facility]
--- NOTE | 2019-03-17 09:00 | NUR ---
case management visits with patient, she states she will return home when medically stable and denies any home needs at this time
--- NOTE | 2019-03-17 09:41 | NUR ---
NOTIFIED OF [facility].
--- NOTE | 2019-03-17 10:00 | NUR ---
PATIENT WENT DOWN FOR CT SCAN OF NECK AND CHEST. TOLERATED WELL. PATIENT BACK IN ROOM RESTING IN BED WATCHING TV. [facility]
--- NOTE | 2019-03-17 10:34 | NUR ---
PPD ADMINISTERED INTRADERMALLY INTO LEFT FOREARM WITHOUT DIFFICULTY. PT TOLERATED WELL. [facility]
[2019-03-17 11:48] VITALS: BP 131/65
--- NOTE | 2019-03-17 11:52 | NUR ---
PT MEDICATED WITH PERCOCET FOR 10/10V BACK PAIN. WILL MONITOR
--- NOTE | 2019-03-17 11:53 | NUR ---
VITALS/ASSESSMENT COMPLETED AND DOCUMENTED. NO COMPLAINTS AT THIS TIME [facility]
--- NOTE | 2019-03-17 13:35 | NUR ---
PT SITTING IN BED WATCHING TV AND EATING LUNCH NO VOICE OF COMPLAINTS AT THIS TIME. REPORT GIVEN TO VICENTE. [facility].
--- NOTE | 2019-03-17 14:05 | NUR ---
#24 IV INSERTED INTO LFA WITHOUT DIFFICULTY. GOOD BLOOD RETURN AND FLUSHES WTIH EASE. PT TOLERATED WELL.
--- NOTE | 2019-03-17 15:47 | NUR ---
PT C/O NAUSEA AND MEDICATED WITH IV ZOFRAN PER ORDER. WILL MONITOR FOR EFFECTIVENESS.
[2019-03-17 16:00] VITALS: BP 155/94
[2019-03-17 20:00] VITALS: BP 156/88
--- NOTE | 2019-03-17 20:29 | NUR ---
PRN PERCOCET GIVEN FOR PT COMPLAINTS OF CHRONIC BACK PAIN. CALL LIGHT WITHIN REACH, WILL MONITOR
--- NOTE | 2019-03-17 21:21 | NUR ---
DEVANTE RICHARDSON GIVEN FOR PT COMPLAINTS OF SLEEPLESSNESS. CALL LIGHT WITHIN REACH, WILL MONITOR
--- NOTE | 2019-03-17 21:37 | NUR ---
IV SITE PAINFUL AND REDDENED WHEN FLUSHING. IV DISCONTINUED AND NEW IV 24 GAUGE STARTED IN THE LEFT AC. GREAT BLOOD RETURNED. NEW SITE ASYMPTOMATIC. TORADOL GIVEN THROUGH NEW SITE.
--- NOTE | 2019-03-17 23:00 | NUR ---
PRN AMBIEN AND PERCOCET APPEAR EFFECTIVE, PT SLEEPING
[2019-03-18] VITALS (9 sets, daily range): BP systolic 120–160; BP diastolic 65–88
--- NOTE | 2019-03-18 01:37 | NUR ---
PATIENT SLEEPING. NO DISTRESS NOTED. WILL MONITOR
--- NOTE | 2019-03-18 03:58 | NUR ---
PATIENT SLEEPING. BREATHING IS EASY AND REGULAR ON ROOM AIR. CALL LIGHT WITHIN REACH, WILL CONTINUE TO MONITOR
--- NOTE | 2019-03-18 04:46 | NUR ---
PER DR. MAIN, OTF TO GIVE PATIENT PERCOCET WITH SIP OF WATER
--- NOTE | 2019-03-18 04:49 | NUR ---
PRN PERCOCET GIVEN FOR PT COMPLAINTS OF CHRONIC BACK PAIN. CALL LIGHT WITHIN REACH, WILL PARVIZ
--- NOTE | 2019-03-18 05:17 | NUR ---
24 HR chart check completed.
[2019-03-18 06:40] LABS: BASO % 0.1 % (0.0-1.0); EOS % 0.1 % (1.0-4.0); HEMATOCRIT 35.2 % (37.0-47.0); HEMOGLOBIN 11.3 g/dl (12.0-16.0); LYMPH # 2.3 10*3/uL (1.3-4.4); MEAN CELL VOLUME 91.7 fl (81.0-99.0); MEAN CORPUSCULAR HGB 29.4 pg (27.0-31.0); MEAN CORPUSCULAR HGB CONC 32.1 g/dl (33.0-37.0); MEAN PLATELET VOLUME 9.1 fl (9.6-12.3); MONO # 1.1 10*3/uL (0.1-1.0); MONO % 6.4 % (3.0-9.0); NEUT % 80.1 % (47.0-73.0); PLATELET COUNT AUTOMATED 513 10*3/uL (130-400); RED BLOOD COUNT 3.84 10*6/uL (4.10-5.10); WHITE BLOOD COUNT 17.5 10*3/uL (4.8-10.8)
[2019-03-18 06:42] LABS: ALBUMIN 2.6 gm/dl (3.1-4.5); ALKALINE PHOSPHATASE 82 U/L (45-117); BUN 14 mg/dl (7-24); CEA 5.2 ng/mL; CHLORIDE 102 mmol/L (98-107); CREATININE 0.81 mg/dL (0.55-1.02); POTASSIUM 4.6 mmol/L (3.5-5.1); SGOT/AST 12 IU/L (3-35); SGPT/ALT 14 U/L (12-78); SODIUM 131 mmol/L (136-145); TOTAL PROTEIN 6.6 gm/dL (6.4-8.2)
--- NOTE | 2019-03-18 08:17 | NUR ---
Shift chart check completed.
--- NOTE | 2019-03-18 09:00 | NUR ---
case management visits with patient, she will have a bronch today and an egd tomorrow, she will return home when medically stable and denies any home needs
--- NOTE | 2019-03-18 09:39 | NUR ---
PT OFF FLOOR FOR BRONCHOSCOPY
--- NOTE | 2019-03-18 10:45 | NUR ---
PT RETURNED FROM OR. VITALS STABLE. RESTING IN BED. VOICES NO OTHER CONCERNS AT THIS TIME. CALL LIGHT WITHIN REACH
--- NOTE | 2019-03-18 11:07 | NUR ---
Hep Lock discontinued. Site asymptomatic. Pressure applied. Sterile dressing applied. KEITH CHAVEZ
[2019-03-18 13:31] LABS: BF LYMPHOCYTES 1 %; BF MACROPHAGES 4 %; BF NEUTROPHILS 95 %
--- NOTE | 2019-03-18 13:58 | NUR ---
PT COMPLAINS OF 9/10 BACK PAIN. MEDICATED PER ORDER. WILL MONITOR FOR RELIEF. VOICES NO OTHER CONCERNS AT THIS TIME. RESTING IN BED. CALL LIGHT WITHIN REACH
--- NOTE | 2019-03-18 14:40 | NUR ---
PERCOCET EFFEVTIVE PER PT
--- NOTE | 2019-03-18 16:55 | NUR ---
PATIENT RESTING IN BED. FAMILY AT BEDSIDE. VOICES NO CONCERNS AT THIS TIME. NO S/S OF DISTRESS NOTED. CALL LIGHT WITHIN REACH
--- NOTE | 2019-03-18 17:25 | NUR ---
Pt complained of pain. Medicated as ordered. Respirations easy. Skin warm and dry. Family at bedside. Verbalized relief. No acute distress noted at this time.
--- NOTE | 2019-03-18 18:18 | NUR ---
PT COMPLAINS OF NAUSEA. MEDICATED PER ORDER. WILL CONTINUE TO MONITOR FOR RELIEF. VOICES NO OTHER CONCERNS AT THIS TIME. RESTING IN BED WITH FAMILY AT BEDSIDE. CALL LIGHT WITHIN REACH.
--- NOTE | 2019-03-18 18:50 | NUR ---
ZOFRAN INEFFECTIVE PER PT. SPOKE WITH DR ERICKSON WHO STATED TO REORDER 6.25MG OF PHENERGAN.
--- NOTE | 2019-03-18 20:12 | NUR ---
IV started left forearm with #22 protective cath after 0 attempts. Site prepped with Chloroprep. Sterile dressing applied. Patient tolerated procedure well. PARVEEN MCGEE
--- NOTE | 2019-03-18 21:28 | NUR ---
PRN AMBIEN AND PERCOCET GIVEN FOR PT COMPLAINTS OF CHRONIC BACK PAIN AND SLEEPLESSNESS. CALL LIGHT WITHIN REACH, WILL MONITOR
--- NOTE | 2019-03-18 21:42 | NUR ---
SPOKE WITH DR. GRIDER ABOUT GETTING KVO FLUIDS FOR PATIENT SINCE SHE HAS BEEN LOSING IV SITES AND HAS BEEN POKED MULTIPLE TIMES AND IS A DIFFICULT STICK
[2019-03-19] VITALS (8 sets, daily range): BP systolic 125–167; BP diastolic 72–94
--- NOTE | 2019-03-19 03:04 | NUR ---
MEDICATED WITH PRN PERCOCET FOR C/O PAIN. WILL MONITOR
--- NOTE | 2019-03-19 06:01 | NUR ---
DR MAIN AWARE OF IV INFILTRATING AND UNABLE TO OBTAIN IV ACCESS
[2019-03-19 06:32] LABS: BASO % 0.1 % (0.0-1.0); EOS % 0.1 % (1.0-4.0); HEMOGLOBIN 11.5 g/dl (12.0-16.0); LYMPH # 2.8 10*3/uL (1.3-4.4); LYMPH % 14.9 % (27.0-41.0); MEAN CELL VOLUME 90.2 fl (81.0-99.0); MEAN CORPUSCULAR HGB 29.6 pg (27.0-31.0); MEAN CORPUSCULAR HGB CONC 32.9 g/dl (33.0-37.0); MEAN PLATELET VOLUME 8.7 fl (9.6-12.3); MONO # 1.2 10*3/uL (0.1-1.0); MONO % 6.5 % (3.0-9.0); NEUT # 14.5 10*3/uL (2.3-7.9); NEUT % 77.9 % (47.0-73.0); PLATELET COUNT AUTOMATED 522 10*3/uL (130-400); RED BLOOD COUNT 3.88 10*6/uL (4.10-5.10); RED CELL DISTRI WIDTH 12.7 % (0-14.5); WHITE BLOOD COUNT 18.6 10*3/uL (4.8-10.8)
[2019-03-19 06:38] LABS: BUN 14 mg/dl (7-24); CHLORIDE 99 mmol/L (98-107); CREATININE 0.74 mg/dL (0.55-1.02); POTASSIUM 4.1 mmol/L (3.5-5.1); SODIUM 130 mmol/L (136-145)
--- NOTE | 2019-03-19 07:43 | NUR ---
SPOKE WITH DR DORSEY THIS MORNING REGARDING PATIENT TESTING TODAY. STATED TO DO THE ESOPHAGOGRAM AND KEEP PATIENT NPO FOR POSSIBLE EDG. WANTS CALLED WITH RESULTS FROM ESOPHAGOGRAM.
--- NOTE | 2019-03-19 07:48 | NUR ---
ASSESSMENT AND DOCUMENTATION COMPLETED. PT NPO FOR ESOPHAGOGRAM GAVE PERCOCET WITH A SMALL SIP OF WATER D/T PT BACK PAIN. ANDRES GIRON [facility].
--- NOTE | 2019-03-19 08:19 | NUR ---
PATIENT TAKEN OFF FLOOR TO XRAY FOR ESOPHAGOGRAM.
--- NOTE | 2019-03-19 08:56 | NUR ---
Shift chart check completed.
--- NOTE | 2019-03-19 08:58 | NUR ---
PATIENT BACK FROM RADIOLOGY. RESTING IN BED. VOICES NO CONCERNS AT THIS TIME. CALL LIGHT IN REACH.
--- NOTE | 2019-03-19 09:00 | NUR ---
case management visits with patient she states she will be returning home when medically stable and denies any home needs
--- NOTE | 2019-03-19 09:06 | NUR ---
SPOKE WITH PTS DAUGHTER REGADING PLAN OF CARE. ANSWERED ALL QUESTIONS.
--- NOTE | 2019-03-19 09:25 | NUR ---
PERCOCET SLIGHTLY EFFECTIVE PAIN RATE AT A 7 OUT OF 10 WAS A 9 OUT OF 10. ANDRES TERESA
--- NOTE | 2019-03-19 10:46 | NUR ---
ASSESSMENT AND DOCUMENTATION COMPLETED. PT RESTING IN BED WATCHING TV NO COMPLAINTS AT THIS TIME. ANDRES GIRON [facility]
--- NOTE | 2019-03-19 11:47 | NUR ---
PT STATING THAT SHE IS HUNGRY AND WOULD LIKE TO EAT. CALLED RADIOLOGY AND ASKED IF THERE WERE ANY RESULTS YET. THEY STATED THEY WOULD PUT THEM IN SOON. PT UPDATED.
--- NOTE | 2019-03-19 12:00 | NUR ---
#24 IV INSERTED INTO RIGHT ARM WITHOUT DIFFICULTY. GOOD BLOOD RETURN AND FLUSHES WITH EASE. PT TOLERATED WELL.
--- NOTE | 2019-03-19 12:35 | NUR ---
ZOFRAN ADMINISTERED INTO IV PER INSTRUCTOR FOR C/O NAUSEA. PT TOLERATED WELL. ANDRES GIRON SPNR[facility].
--- NOTE | 2019-03-19 13:40 | NUR ---
PT RESITNG IN BED NO COMPLAINTS AT THIS TIME. REPORT GIVEN KEITH. ANDRES GIRON [facility]
--- NOTE | 2019-03-19 14:00 | NUR ---
RESULTS BACK FROM RADIOLOGY AND GIVEN TO DR. DORSEY. STATED TO ADD HER TO HIS EGD LIST FOR TODAY. NO OTHER ORDERS AT THIS TIME.
--- NOTE | 2019-03-19 14:59 | NUR ---
PT OFF FLOOR FOR EGD
--- NOTE | 2019-03-19 17:18 | NUR ---
REPORT RECIEVED FROM OR NURSE. CALLED AND SPOKE WITH DR ERICKSON REGARDING RESULTS. NO NEW ORDERS AT THIS TIME.
--- NOTE | 2019-03-19 17:20 | NUR ---
PT BACK FROM OR. VITALS STABLE. C/O PAIN. MEDICATED. WILL CONTINUE TO MONITOR. VOICES NO OTHER CONCERNS AT THIS TIME. RESTING IN BED. CALL LIGHT WITHIN REACH. FAMILY AT BEDSIDE
[2019-03-19 18:07] LABS: ACID FAST SPEC PROCESSING Concentration (.)
[2019-03-19 18:07] LABS: ACID FAST SPEC PROCESSING Concentration (.)
[2019-03-20] VITALS: BP 150/77
[2019-03-20 06:28] LABS: HEMATOCRIT 36.2 % (37.0-47.0); HEMOGLOBIN 11.9 g/dl (12.0-16.0); MEAN CELL VOLUME 89.8 fl (81.0-99.0); MEAN CORPUSCULAR HGB 29.5 pg (27.0-31.0); MEAN CORPUSCULAR HGB CONC 32.9 g/dl (33.0-37.0); MEAN PLATELET VOLUME 8.9 fl (9.6-12.3); PLATELET COUNT AUTOMATED 569 10*3/uL (130-400); RED BLOOD COUNT 4.03 10*6/uL (4.10-5.10); RED CELL DISTRI WIDTH 12.5 % (0-14.5); WHITE BLOOD COUNT 24.9 10*3/uL (4.8-10.8)
[2019-03-20 06:36] LABS: BUN 19 mg/dl (7-24); CHLORIDE 96 mmol/L (98-107); CREATININE 0.86 mg/dL (0.55-1.02); POTASSIUM 4.3 mmol/L (3.5-5.1); SODIUM 128 mmol/L (136-145)
[2019-03-20 06:52] LABS: PLATELET SUFFICIENCY HIGH (NORMAL); TOTAL CELLS COUNTED 100 #CELLS; TOXIC GRANULATION MODERATE; VACUOLATION OF NEUTROPHILS SLIGHT
[2019-03-20 08:00] VITALS: BP 142/72
--- NOTE | 2019-03-20 08:00 | NUR ---
24 HR chart check completed.
--- NOTE | 2019-03-20 08:36 | NUR ---
Patient resting quietly with no c/o discomfort. Respirations easy and regular. Vital signs stable. No overt distress. YANIRA FRAZIER
--- NOTE | 2019-03-20 10:29 | NUR ---
MEDICATED WITH PO PERCOCET ORDERED PER PT REQUEST FOR C/O GENERALIZED PAIN RATED 4/10.
[2019-03-20 12:00] VITALS: BP 130/78
--- NOTE | 2019-03-20 12:08 | NUR ---
MEDICATION EFFECTIVE FOR PAIN.
--- NOTE | 2019-03-20 14:52 | NUR ---
MEDICATED WITH PO PERCOCET ORDERED PER PT REQUEST FOR C/O PAIN TO BACK/HIPS RATED 8/10.
[2019-03-20 16:00] VITALS: BP 131/84
--- NOTE | 2019-03-20 16:00 | NUR ---
MEDICATION EFFECTIVE FOR PAIN.
--- NOTE | 2019-03-20 18:35 | NUR ---
MEDICATED WITH PO PERCOCET ORDERED PER PT REQUEST FOR C/O ALL OVER PAIN RATED 5/10.
[2019-03-20 20:00] VITALS: BP 149/77
--- NOTE | 2019-03-20 20:06 | NUR ---
PATIENT IS RESTING IN BED WITH EASY AND REGULAR RESPERS ON ROOM AIR. ASSESSMENT IS COMPLETE WITH NO C/O OR S/S OF DISTRESS NOTED AT THIS TIME. BED IS LOW, LOCKED, AND CALL LIGHT IS WITHIN REACH. WILL CONTINUE TO MONITOR, SEE SHIFT ASSESSMENT.
--- NOTE | 2019-03-20 21:59 | NUR ---
PRN PERCOCET GIVEN FOR BACK PAIN. CALL LIGHT IS WITHIN REACH.
--- NOTE | 2019-03-20 23:00 | NUR ---
PRN PERCOCET EFFECTIVE PER PATIENT.
[2019-03-21] VITALS: BP 109/55
--- NOTE | 2019-03-21 03:25 | NUR ---
PRN PERCOCET GIVEN FOR BACK PAIN AND ZOFRAN GIVEN FOR NAUSEA. CALL LIGHT IS WITHIN REACH.
[2019-03-21 06:39] LABS: HEMATOCRIT 33.2 % (37.0-47.0); MEAN CORPUSCULAR HGB 29.5 pg (27.0-31.0); MEAN CORPUSCULAR HGB CONC 33.1 g/dl (33.0-37.0); MEAN PLATELET VOLUME 8.9 fl (9.6-12.3); PLATELET COUNT AUTOMATED 536 10*3/uL (130-400); RED BLOOD COUNT 3.73 10*6/uL (4.10-5.10); RED CELL DISTRI WIDTH 12.5 % (0-14.5); WHITE BLOOD COUNT 26.5 10*3/uL (4.8-10.8)
[2019-03-21 06:41] LABS: ALBUMIN 2.6 gm/dl (3.1-4.5); ALKALINE PHOSPHATASE 74 U/L (45-117); BUN 14 mg/dl (7-24); CHLORIDE 101 mmol/L (98-107); CREATININE 0.68 mg/dL (0.55-1.02); POTASSIUM 4.6 mmol/L (3.5-5.1); SGOT/AST 16 IU/L (3-35); SGPT/ALT 14 U/L (12-78); SODIUM 132 mmol/L (136-145); TOTAL PROTEIN 5.9 gm/dL (6.4-8.2)
--- NOTE | 2019-03-21 07:00 | NUR ---
PRN PERCOCET EFFECTIVE PER PATIENT, ZOFRAN INEFFECTIVE. CALL LIGHT IS WITHIN REACH.
[2019-03-21 07:13] LABS: TOTAL CELLS COUNTED 100 #CELLS; TOXIC GRANULATION MODERATE; VACUOLATION OF NEUTROPHILS SLIGHT
[2019-03-21 07:14] LABS: PLATELET SUFFICIENCY HIGH (NORMAL); POLYCHROMASIA SLIGHT; TARGET CELLS FEW
[2019-03-21 08:00] VITALS: BP 146/69
--- NOTE | 2019-03-21 08:24 | NUR ---
MEDICATED WITH PO PERCOCET ORDERED PER PT REQUEST FOR C/O PAIN TO HIPS RATED 8/10.
--- NOTE | 2019-03-21 09:00 | NUR ---
Patient resting quietly with no c/o discomfort. Respirations easy and regular. Vital signs stable. APPEARS TO BE IN NO overt distress, YET IS ASKING WHEN HER PAIN MEDS ARE DUE. YANIRA FRAZIER
--- NOTE | 2019-03-21 11:38 | NUR ---
MEDICATED WITH IV TORADOL ORDERED PER PT REQUEST FOR C/O R HIP PAIN RATED 8/10. PREVIOUS MEDICATION NOT EFFECTIVE.
[2019-03-21 12:00] VITALS: BP 130/87
--- NOTE | 2019-03-21 13:55 | NUR ---
MEDICATED WITH IV ZOFRAN ORDERED PER PT REQUEST FOR C/O NAUSEA.
--- NOTE | 2019-03-21 15:22 | NUR ---
MEDICATION EFFECTIVE FOR NAUSEA.
--- NOTE | 2019-03-21 15:40 | NUR ---
MEDICATED WITH PRN PERCOCET PER ORDER AND REQUEST FOR BACK AND HIP PAIN.
[2019-03-21 16:00] VITALS: BP 150/96
--- NOTE | 2019-03-21 17:00 | NUR ---
MEDICATION EFFECTIVE FOR PAIN.
--- NOTE | 2019-03-21 19:00 | NUR ---
ASSUMED CARE FOR THIS PT AT THIS TIME. PT AWAKE IN BED WATCHING TV. C/O NAUSEA AND PAIN. WILL CHECK EMAR FOR PRN'S AVAILABLE. CALL LIGHT IN REACH.
[2019-03-21 20:00] VITALS: BP 140/73
--- NOTE | 2019-03-21 20:02 | NUR ---
pt medicated w/zofran and toradol for c/o nausea and bilateral hip and back pain 12/05. will monitor for effectiveness. call light in reach.
--- NOTE | 2019-03-21 21:48 | NUR ---
pt medicated w/percocet for continued c/o pain and ambien to promote sleep. snack given per pt request. call light in reach.
[2019-03-22] VITALS: BP 140/70
--- NOTE | 2019-03-22 02:54 | NUR ---
24 HR chart check completed.
--- NOTE | 2019-03-22 03:50 | NUR ---
pt calling out for pain meds. upon entering room, found pt sleeping. pt did not awaken to verbal stimuli. pt awaken w/tactile stimuli. pt medicated w/percocet for c/o hip/back pain. will monitor.
[2019-03-22 05:59] LABS: HEMATOCRIT 33.8 % (37.0-47.0); MEAN CELL VOLUME 91.6 fl (81.0-99.0); MEAN CORPUSCULAR HGB 29.8 pg (27.0-31.0); MEAN CORPUSCULAR HGB CONC 32.5 g/dl (33.0-37.0); MEAN PLATELET VOLUME 8.9 fl (9.6-12.3); PLATELET COUNT AUTOMATED 558 10*3/uL (130-400); RED BLOOD COUNT 3.69 10*6/uL (4.10-5.10); RED CELL DISTRI WIDTH 12.7 % (0-14.5); WHITE BLOOD COUNT 26.8 10*3/uL (4.8-10.8)
[2019-03-22 06:17] LABS: BUN 13 mg/dl (7-24); CHLORIDE 99 mmol/L (98-107); CREATININE 0.65 mg/dL (0.55-1.02); POTASSIUM 4.6 mmol/L (3.5-5.1); SODIUM 133 mmol/L (136-145)
--- NOTE | 2019-03-22 06:24 | NUR ---
PT'S PULSE OX 84% RA. ENCOURAGED DEEP BREATHING AND SAT PT UP IN BED. SAT INCREASED TO 86%. O2 VIA NC AT 2.5L APPLIED TO PT. PT DENIES SOB. WILL RECHECK AND MONITOR.
--- NOTE | 2019-03-22 06:36 | NUR ---
SAT INCREASED TO 96% ON 2.5LNC. PT RESTING QUIETLY IN BED.
[2019-03-22 06:59] LABS: TOTAL CELLS COUNTED 100 #CELLS
[2019-03-22 07:00] LABS: PLATELET SUFFICIENCY HIGH (NORMAL)
[2019-03-22 07:33] VITALS: BP 130/82
--- NOTE | 2019-03-22 07:44 | NUR ---
ASSESSMENT AND DOCUMENTATION COMPLETED. PT SITTING IN BED GETTING A BREATHING TX. NO C/O PAIN AT THIS TIME. ANDRES GIRON [facility]
--- NOTE | 2019-03-22 09:00 | NUR ---
case management visits with patient, she stated she would be discharged to home today, discussed with her VNA and she declines any home needs
[2019-03-22] MEDS ORDERED: PREDNISONE10 MG PO (10:01)
[2019-03-22] MEDS ORDERED: DOXYCYCLINE MO100 M1 PO (10:01)
[2019-03-22] MEDS ORDERED: MUCINEX1200 M1 PO (10:01)
--- NOTE | 2019-03-22 10:06 | NUR ---
ASSESSMENT DOCUMENTED AND COMPLETED. PT SITTING ON THE SIDE OF BED WAITING FOR DISCHARGE PAPERS. NO VOICE OF COMPLAINTS AT THIS TIME. [facility]RES [facility]IRON [facility]
--- NOTE | 2019-03-22 10:30 | NUR ---
IV SITE DC'D. CATH INTACT. SITE ASYMPTOMATIC. PT TOLERATED WELL. DISCHARGE INSTRUCTIONS GIVEN. PT VERBALIZED UNDERSTANDING. NO QUESTIONS AT THIS TIME. AMBULATORY AND STABLE.
--- NOTE | 2019-03-22 10:31 | NUR ---
Discharge instructions reviewed with patient/family. Patient receptive and verbalizes understanding. Follow-up care arranged. Written instructions given to patient/family. OLI CASAREZ
== END 2019-03-22 10:31 | disposition home or self-care (01) | DRG 720 ==
LOC: ED 14:03 → 4E 16:46 → EDHOLD 16:46 → 4E 17:15
PROVIDERS: Family Medicine; Internal Medicine; Internal Medicine Critical Care Medicine; Nurse Practitioner; ADMIT Family Medicine
PROC: 0B9C8ZX Drainage of Right Upper Lung Lobe, Via Natural or Artificial Opening Endoscopic, Diagnostic (ICD-10-PCS; 2019-03-18)
PROC: 0BC28ZZ Extirpation of Matter from Carina, Via Natural or Artificial Opening Endoscopic (ICD-10-PCS; 2019-03-18)
PROC: 0BC98ZZ Extirpation of Matter from Lingula Bronchus, Via Natural or Artificial Opening Endoscopic (ICD-10-PCS; 2019-03-18)
PROC: 0BC48ZZ Extirpation of Matter from Right Upper Lobe Bronchus, Via Natural or Artificial Opening Endoscopic (ICD-10-PCS; 2019-03-18)
PROC: 0BC88ZZ Extirpation of Matter from Left Upper Lobe Bronchus, Via Natural or Artificial Opening Endoscopic (ICD-10-PCS; 2019-03-18)
PROC: 0BC58ZZ Extirpation of Matter from Right Middle Lobe Bronchus, Via Natural or Artificial Opening Endoscopic (ICD-10-PCS; 2019-03-18)
PROC: 0BC38ZZ Extirpation of Matter from Right Main Bronchus, Via Natural or Artificial Opening Endoscopic (ICD-10-PCS; 2019-03-18)
PROC: 0BC78ZZ Extirpation of Matter from Left Main Bronchus, Via Natural or Artificial Opening Endoscopic (ICD-10-PCS; 2019-03-18)
PROC: 0BC68ZZ Extirpation of Matter from Right Lower Lobe Bronchus, Via Natural or Artificial Opening Endoscopic (ICD-10-PCS; 2019-03-18)
PROC: 0BCB8ZZ Extirpation of Matter from Left Lower Lobe Bronchus, Via Natural or Artificial Opening Endoscopic (ICD-10-PCS; 2019-03-18)
PROC: 0BC18ZZ Extirpation of Matter from Trachea, Via Natural or Artificial Opening Endoscopic (ICD-10-PCS; 2019-03-18)
PROC: 0DB68ZX Excision of Stomach, Via Natural or Artificial Opening Endoscopic, Diagnostic (ICD-10-PCS; principal; 2019-03-19)
PROC: BD11ZZZ Fluoroscopy of Esophagus (ICD-10-PCS; 2019-03-19)
DX: A41.9 Sepsis, unspecified organism (principal); J15.211 Pneumonia due to Methicillin susceptible Staphylococcus aureus; J96.11 Chronic respiratory failure with hypoxia; E44.0 Moderate protein-calorie malnutrition; E87.2 Acidosis; Z99.81 Dependence on supplemental oxygen; R65.20 Severe sepsis without septic shock; J44.1 Chronic obstructive pulmonary disease with (acute) exacerbation; E87.1 Hypo-osmolality and hyponatremia; J44.0 Chronic obstructive pulmonary disease with (acute) lower respiratory infection; R13.10 Dysphagia, unspecified; E83.39 Other disorders of phosphorus metabolism; K76.0 Fatty (change of) liver, not elsewhere classified; F17.210 Nicotine dependence, cigarettes, uncomplicated; G89.29 Other chronic pain; M54.9 Dorsalgia, unspecified; F32.9 Major depressive disorder, single episode, unspecified; F41.1 Generalized anxiety disorder; G43.909 Migraine, unspecified, not intractable, without status migrainosus; M81.0 Age-related osteoporosis without current pathological fracture; I10 Essential (primary) hypertension; J20.9 Acute bronchitis, unspecified; K29.00 Acute gastritis without bleeding; K44.9 Diaphragmatic hernia without obstruction or gangrene; Z88.8 Allergy status to other drugs, medicaments and biological substances; Z79.899 Other long term (current) drug therapy; Z90.49 Acquired absence of other specified parts of digestive tract; Z85.41 Personal history of malignant neoplasm of cervix uteri; Z90.710 Acquired absence of both cervix and uterus; Z98.42 Cataract extraction status, left eye; Z98.41 Cataract extraction status, right eye; Z82.49 Family history of ischemic heart disease and other diseases of the circulatory system; Z82.3 Family history of stroke; Z83.3 Family history of diabetes mellitus; Z83.6 Family history of other diseases of the respiratory system; Z84.89 Family history of other specified conditions; Z71.6 Tobacco abuse counseling; Z68.22 Body mass index [BMI] 22.0-22.9, adult

== ENCOUNTER 2019-04-06 11:02 | Emergency (ER) | payer OTHER ==
[~2019-04-06] VITALS: Ht 160 cm; Wt 54.4 kg
[~2019-04-06 11:02] MED LIST changes: +ATARAX,VISTARIL50 MG PO; +CELEXA40 MG PO; +DOXYCYCLINE MO100 M1 PO; +MUCINEX1200 M1 PO; +PERCOCET 7.5-31 EACH PO
[2019-04-06 11:06] VITALS: BP 140/92
== END 2019-04-06 14:50 | disposition home or self-care (01) ==
LOC: ED 11:02
DX: R07.81 Pleurodynia (principal); M81.0 Age-related osteoporosis without current pathological fracture; J44.9 Chronic obstructive pulmonary disease, unspecified; G89.29 Other chronic pain; F17.200 Nicotine dependence, unspecified, uncomplicated; Z88.1 Allergy status to other antibiotic agents; Z88.8 Allergy status to other drugs, medicaments and biological substances; Z79.899 Other long term (current) drug therapy; Z90.49 Acquired absence of other specified parts of digestive tract; Z90.710 Acquired absence of both cervix and uterus; X50.1XXA Overexertion from prolonged static or awkward postures, initial encounter; Y93.89 Activity, other specified; Y92.89 Other specified places as the place of occurrence of the external cause; Y99.8 Other external cause status

== ENCOUNTER 2019-04-16 16:56 | Inpatient (IN) | payer OTHER ==
[~2019-04-16] VITALS: Ht 160 cm; Wt 54.6 kg
[2019-04-16 16:57] VITALS: BP 118/71
[2019-04-16 17:27] LABS: BASO # 0.1 10*3/uL (0.0-0.1); BASO % 0.7 % (0.0-1.0); EOS % 0.3 % (1.0-4.0); HEMATOCRIT 38.6 % (37.0-47.0); HEMOGLOBIN 12.1 g/dl (12.0-16.0); LYMPH # 4.8 10*3/uL (1.3-4.4); LYMPH % 32.1 % (27.0-41.0); MEAN CELL VOLUME 93.2 fl (81.0-99.0); MEAN CORPUSCULAR HGB 29.2 pg (27.0-31.0); MEAN CORPUSCULAR HGB CONC 31.3 g/dl (33.0-37.0); MEAN PLATELET VOLUME 9.6 fl (9.6-12.3); MONO # 0.9 10*3/uL (0.1-1.0); NEUT % 60.6 % (47.0-73.0); PLATELET COUNT AUTOMATED 456 10*3/uL (130-400); RED BLOOD COUNT 4.14 10*6/uL (4.10-5.10); RED CELL DISTRI WIDTH 13.8 % (0-14.5); WHITE BLOOD COUNT 14.9 10*3/uL (4.8-10.8)
[2019-04-16 17:37] LABS: ACT PARTIAL THROMBO TIME 23.8 SECONDS (20.0-32.1); INTERNATIONAL NORM RATIO 0.9 (2.0-3.5)
[2019-04-16 17:45] LABS: ALBUMIN 3.7 gm/dl (3.1-4.5); ALKALINE PHOSPHATASE 118 U/L (45-117); BUN 14 mg/dl (7-24); CHLORIDE 108 mmol/L (98-107); CREATININE 1.01 mg/dL (0.55-1.02); LIPASE 132 U/L (73-393); POTASSIUM 3.2 mmol/L (3.5-5.1); SGOT/AST 19 IU/L (3-35); SGPT/ALT 18 U/L (12-78); SODIUM 140 mmol/L (136-145)
[2019-04-16 17:47] LABS: TROPONIN I < 0.015 ng/ml (<0.045)
--- NOTE | 2019-04-16 17:50 | NUR ---
NOTIFIED BY LAB PTS LACTIC ACID 2.4. DR MACKEY NOTIFIED.
[2019-04-16] MEDS ORDERED: ATARAX,VISTARIL50 MG PO (18:03)
[2019-04-16] MEDS ORDERED: PRILOSEC20 M1 PO (18:03)
[2019-04-16] MEDS ORDERED: ZOFRAN4 MG PO (18:04)
[2019-04-16] MEDS ORDERED: PERCOCET 7.5-31 EACH PO (18:04)
[2019-04-16] MEDS ORDERED: MINIPRESS2 M1 PO (18:04)
[2019-04-16] MEDS ORDERED: CLARITIN10 MG PO (18:06)
[2019-04-16] MEDS ORDERED: EFFER-K10 MEQ PO (18:06)
[2019-04-16] MEDS ORDERED: REMERON30 M1 PO (18:07)
[2019-04-16] MEDS ORDERED: ZANAFLEX4 M2 PO (18:07)
[2019-04-16] MEDS ORDERED: FERRETTS325 M1 PO (18:07)
[2019-04-16] MEDS ORDERED: LISINOPRIL20 MG PO (18:08)
[2019-04-16] MEDS ORDERED: TOFRANIL25 MG PO (18:09)
[2019-04-16] MEDS ORDERED: CELEXA40 MG PO (18:09)
[2019-04-16] MEDS ORDERED: GAVISCON ES TA1 EACH PO (18:10)
[2019-04-16] MEDS ORDERED: TESSALON PERLE100 MG PO (18:10)
[2019-04-16] MEDS ORDERED: GABAPENTIN800 MG PO (18:11)
[2019-04-16] MEDS ORDERED: MELATONIN5 M6 PO (18:11)
[2019-04-16] MEDS ORDERED: LUNESTA2 MG PO (18:12)
[2019-04-16] MEDS ORDERED: ALBUTEROL0.63 MG/3 INH (18:12)
[2019-04-16] MEDS ORDERED: MUCINEX D ER 61 EACH PO (18:13)
[2019-04-16] MEDS ORDERED: LIPITOR20 MG PO (18:14)
[2019-04-16] MEDS ORDERED: AUGMENTIN 500500 MG PO (18:17)
[2019-04-16 20:20] VITALS: BP 128/67
--- NOTE | 2019-04-16 20:20 | NUR ---
A 58, admitted to , under the services of GLADYS Stark DO with a diagnosis of SEVERE SEPSIS, PNEUMONITIS. Chief complaint is MULTIPLE COMPLAINTS. Patient arrived via wheel chair from ER. Monitor applied. Initial assessment completed. Vital signs taken and recorded. GLADYS STARK DO notified of admission to the unit. Orders received. See assessment for past medical history, medications and allergies. Patient and/or family oriented to unit. [facility] Clothing/patient valuable form completed. CHICHO KLINE
[2019-04-16] MEDS ORDERED: DOXEPIN25 MG PO (20:38)
[2019-04-16] MEDS ORDERED: VITAMIN D5000 UNIT PO (20:39)
--- NOTE | 2019-04-16 20:41 | NUR ---
A 58, admitted to , under the services of GLADYS Stark DO with a diagnosis of SEVERE SEPSIS, PNEUMONITIS. Chief complaint is MULTIPLE COMPLAINTS. Patient arrived via wheel chair from ER. Monitor applied. Initial assessment completed. Vital signs taken and recorded. GLADYS STARK DO notified of admission to the unit. Orders received. See assessment for past medical history, medications and allergies. Patient and/or family oriented to unit. [address] visitation policy reviewed. Clothing/patient valuable form completed. CHICHO KLINE
--- NOTE | 2019-04-16 20:42 | NUR ---
NOTIFIED DR. S[facility]HU [facility] UP TO DATE.
--- NOTE | 2019-04-16 22:12 | NUR ---
RESTORIL GIVEN PER PATIENT REQUEST FOR COMPLAINTS OF INSOMNIA. WILL ASSESS EFFECTIVENESS.
--- NOTE | 2019-04-16 22:40 | NUR ---
PERCOCET GIVEN PER PATIENT REQUEST FOR COMPLAINTS OF BACK PAIN RATED 9/10. WILL ASSESS EFFECTIVENESS.
[2019-04-17] VITALS: BP 116/61
--- NOTE | 2019-04-17 02:47 | NUR ---
Patient resting quietly with no c/o discomfort. Respirations easy and regular. Vital signs stable. No overt distress. CHICHO KLINE
--- NOTE | 2019-04-17 03:52 | NUR ---
TYLENOL GIVEN PER PATIENT REQUEST FOR BACK PAIN RATED 6/10. WILL ASSESS EFFECTIVENESS.
--- NOTE | 2019-04-17 04:46 | NUR ---
TYLENOL NOT EFFECTIVE. PERCOCET GIVEN PER PATIENT REQUEST FOR COMPLAINTS OF BACK PAIN RATED 9/10. WILL ASSESS EFFECTIVENESS.
[2019-04-17 06:21] LABS: HEMATOCRIT 33.7 % (37.0-47.0); HEMOGLOBIN 10.8 g/dl (12.0-16.0); MEAN CELL VOLUME 92.8 fl (81.0-99.0); MEAN CORPUSCULAR HGB 29.8 pg (27.0-31.0); PLATELET COUNT AUTOMATED 390 10*3/uL (130-400); RED BLOOD COUNT 3.63 10*6/uL (4.10-5.10); RED CELL DISTRI WIDTH 13.6 % (0-14.5)
[2019-04-17 06:31] LABS: BUN 10 mg/dl (7-24); CHLORIDE 110 mmol/L (98-107); CREATININE 0.78 mg/dL (0.55-1.02); PHOSPHOROUS 3.1 mg/dL (2.5-4.9); POTASSIUM 4.3 mmol/L (3.5-5.1); SODIUM 139 mmol/L (136-145)
--- NOTE | 2019-04-17 06:51 | NUR ---
DR STAUFFER NOTIFIED OF CONSULT.
[2019-04-17 07:21] LABS: TOTAL CELLS COUNTED 100 #CELLS
[2019-04-17 07:22] LABS: PLATELET SUFFICIENCY NORMAL (NORMAL)
[2019-04-17 08:00] VITALS: BP 105/58
[2019-04-17 08:50] VITALS: BP 116/74
--- NOTE | 2019-04-17 09:00 | NUR ---
MEDICATED WITH PRN PO PERCOCET FOR LOWER BACK PAIN AT THIS TIME.
--- NOTE | 2019-04-17 10:15 | NUR ---
PRN PO PERCOCET NOT EFFECTIVE FOR BACK PAIN, MEDICATED WITH PRN IV MORPHINE AT THIS TIME.
--- NOTE | 2019-04-17 10:51 | NUR ---
PRN IV MORPHINE SOMEWHAT EFFECTIVE, PER PATIENT.
[2019-04-17 12:00] VITALS: BP 152/65
--- NOTE | 2019-04-17 14:19 | NUR ---
MEDICATED WITH PRN IV MORPHINE FOR LOW BACK PAIN RATES 9/10 ON PAIN SCALE.
--- NOTE | 2019-04-17 15:23 | NUR ---
MEDICATED WITH PRN PO PERCOCET FOR BACK PAIN. PRN IV MORPHINE WAS EFFECTIVE FOR A SHORT TIME, PER PATIENT.
[2019-04-17 16:00] VITALS: BP 128/63
--- NOTE | 2019-04-17 18:22 | NUR ---
MEDICATED WITH PRN IV MORPHINE FOR C/O BACK PAIN NOT RELIEVED BY PERCOCET PO EARLIER.
[2019-04-17 20:00] VITALS: BP 134/79
--- NOTE | 2019-04-17 21:30 | NUR ---
PERCOCET GIVEN PER PATIENT REQUEST FOR COMPLAINTS OF PAIN RATED 8/10. WILL ASSESS EFFECTIVNESS.
--- NOTE | 2019-04-17 21:44 | NUR ---
RESTORIL GIVEN PER PATIENT REQUEST FOR COMPLAINTS OF INSOMNIA. WILL ASSESS EFFECTIVENESS.
--- NOTE | 2019-04-17 22:19 | NUR ---
24 HR chart check completed.
--- NOTE | 2019-04-17 22:20 | NUR ---
PERCOCET SLIGHTLY EFFECTIVE PER PATIENT. BACK PAIN RATED 6/10. WILL CONTINUE TO MONITOR.
--- NOTE | 2019-04-17 22:39 | NUR ---
MORPHINE GIVEN PER PATIENT REQUEST FOR COMPLAINTS OF BACK AND RIGHT SIDE PAIN RATED 9/10. WILL ASSESS EFFECTIVNESS.
[2019-04-18] VITALS: BP 143/70
--- NOTE | 2019-04-18 03:55 | NUR ---
MORPHINE GIVEN PER PATIENT REQUEST FOR COMPLAINTS OF BACK PAIN RATED 9/10. WILL ASSESS EFFECTIVENESS.
--- NOTE | 2019-04-18 05:05 | NUR ---
PATIENT STATED MORPHINE WAS NOT EFFECTIVE. PERCOCET GIVEN PER PATIENT REQUEST FOR COMPLAINTS OF BACK PAIN RATED 9/10. WILL ASSESS EFFECTIVENESS.
--- NOTE | 2019-04-18 06:00 | NUR ---
PERCOCET EFFECTIVE PER PATIENT.
[2019-04-18 06:32] LABS: BASO % 0.1 % (0.0-1.0); HEMOGLOBIN 9.9 g/dl (12.0-16.0); LYMPH # 1.6 10*3/uL (1.3-4.4); LYMPH % 10.7 % (27.0-41.0); MEAN CELL VOLUME 92.5 fl (81.0-99.0); MEAN CORPUSCULAR HGB 29.6 pg (27.0-31.0); MEAN CORPUSCULAR HGB CONC 31.9 g/dl (33.0-37.0); MEAN PLATELET VOLUME 9.8 fl (9.6-12.3); MONO % 6.6 % (3.0-9.0); NEUT # 12.3 10*3/uL (2.3-7.9); NEUT % 82.1 % (47.0-73.0); PLATELET COUNT AUTOMATED 360 10*3/uL (130-400); RED BLOOD COUNT 3.35 10*6/uL (4.10-5.10); RED CELL DISTRI WIDTH 13.8 % (0-14.5); WHITE BLOOD COUNT 14.9 10*3/uL (4.8-10.8)
[2019-04-18 07:03] LABS: BUN 12 mg/dl (7-24); CHLORIDE 110 mmol/L (98-107); CREATININE 0.72 mg/dL (0.55-1.02); POTASSIUM 3.8 mmol/L (3.5-5.1); SODIUM 141 mmol/L (136-145)
--- NOTE | 2019-04-18 08:20 | NUR ---
PT MEDICATED WITH PRN MORPHINE FOR C/O RIGHT SIDED BACK PAIN THAT SHE RATES 8/10. WILL MONITOR.
--- NOTE | 2019-04-18 09:20 | NUR ---
PRN MORPHINE EFFECTIVE PER PT
[2019-04-18 12:00] VITALS: BP 142/89
[2019-04-18 16:00] VITALS: BP 132/71
--- NOTE | 2019-04-18 19:47 | NUR ---
PATIENT MEDICATED WITH ZOFRAN FOR COMPLAINTS OF NAUSEA. WILL CONTINUE TO MONITOR.
[2019-04-18 20:00] VITALS: BP 156/78
--- NOTE | 2019-04-18 21:36 | NUR ---
PATIENT MEDICATED WITH MORPHINE FOR COMPLAINTS OF BACK PAIN. WILL CONTINUE TO MONITOR.
--- NOTE | 2019-04-18 23:57 | NUR ---
PATIENT MEDICATED WITH PERCOCET FOR COMPLAINTS OF BACK PAIN. WILL CONTINUE TO MONITOR. ZOFRAN AND MORPHINE FROM EARLIER EFFECTIVE PER PATIENT.
[2019-04-19] VITALS: BP 122/58
--- NOTE | 2019-04-19 01:03 | NUR ---
24 HR chart check completed.
--- NOTE | 2019-04-19 04:26 | NUR ---
MEDICATED WITH MORPHINE FOR COMPLAINTS OF BACK PAIN.
--- NOTE | 2019-04-19 06:06 | NUR ---
MEDICATED WITH PERCOCET FOR COMPLAINTS OF BACK PAIN.
[2019-04-19 06:21] LABS: BASO % 0.1 % (0.0-1.0); HEMATOCRIT 31.5 % (37.0-47.0); HEMOGLOBIN 10.1 g/dl (12.0-16.0); LYMPH # 2.1 10*3/uL (1.3-4.4); LYMPH % 11.9 % (27.0-41.0); MEAN CELL VOLUME 92.4 fl (81.0-99.0); MEAN CORPUSCULAR HGB 29.6 pg (27.0-31.0); MEAN CORPUSCULAR HGB CONC 32.1 g/dl (33.0-37.0); MEAN PLATELET VOLUME 9.7 fl (9.6-12.3); MONO # 1.2 10*3/uL (0.1-1.0); MONO % 6.9 % (3.0-9.0); NEUT # 14.1 10*3/uL (2.3-7.9); NEUT % 80.4 % (47.0-73.0); PLATELET COUNT AUTOMATED 363 10*3/uL (130-400); RED BLOOD COUNT 3.41 10*6/uL (4.10-5.10); RED CELL DISTRI WIDTH 13.9 % (0-14.5); WHITE BLOOD COUNT 17.5 10*3/uL (4.8-10.8)
[2019-04-19 06:24] LABS: BUN 13 mg/dl (7-24); CHLORIDE 107 mmol/L (98-107); CREATININE 0.81 mg/dL (0.55-1.02); SODIUM 142 mmol/L (136-145)
--- NOTE | 2019-04-19 07:05 | NUR ---
ARRIVED ON SHIFT, INTRODUCED TO PATIENT, NO NEEDS VOICED AT THIS TIME, WHITE BOARD UPDATED, NO NEEDS VOICED AT THIS TIME.
[2019-04-19 08:00] VITALS: BP 120/68
--- NOTE | 2019-04-19 08:30 | NUR ---
Shift chart check completed.
--- NOTE | 2019-04-19 08:50 | NUR ---
PATIENT C/O BACK AND SIDE PAIN 01/05 MEDICATED WITH MORPHINE ORDERED
--- NOTE | 2019-04-19 09:50 | NUR ---
MODERATE RELIEF FROM PAIN MORPHINE GIVEN AT 0850, RATES PAIN 7/10, STATES IT JUST DULLS PAIN DOES NOT TAKE AWAY.
--- NOTE | 2019-04-19 11:50 | NUR ---
PATIENT REQUESTING PERCOCET, ADVISED IT WAS A LITTLE TOO SOON. CALLED HOSPITALIST, SPOKE WITH DR. FLORES, VERSED MY CONCERN OVER THE NUMBER OF DOSES OF MORPHINE AND PERCOCET PATIENT IS GETTING. HE ADVISED NOT TO GIVE NEXT NEEDED DOSE OF MORPHINE AND GIVE 30MG DOSE OF TORADOL.
--- NOTE | 2019-04-19 11:57 | NUR ---
Press Feeder in to talk to patient. Patient states lives at HOME with ALONE. There are NO steps in the home. Physician: Tonie FINCH [facility]acy: [facility] Home health services: NONE Patient's level of ADLs: INDEPENDENT Patient has working utilities: YES DME: OXYGEN, [facility] Follow-up physician's appointment after d/c: WILL BE MADE BY HOSPITALIST NURSE DIRECTOR ON DISCHARGE Does patient want to access PORTAL?: NO Discharge plan PT LIVES AT HOME ALONE AND IS INDEPENDENT IN HER CARE. STATES SHE HAS HOME OXYGEN. PLAN IS TO RETURN HOME WHEN MEDICALLY STABLE. WILL CONTINUE TO FOLLOW. STATES SHE WILL HAVE A RIDE HOME. . GRISEL GUNTER
[2019-04-19 12:00] VITALS: BP 129/72
--- NOTE | 2019-04-19 12:15 | NUR ---
PATIENT C/O OF PAIN RARTES 9/10 BACK AND HIPS, MEDICATED WITH PERCOCET ORDERED PRN.
--- NOTE | 2019-04-19 12:46 | NUR ---
PATIENT CONTINUES TO C/O PAIN MEDICATED WITH 1 TIME DOES OF TORDOL.
--- NOTE | 2019-04-19 13:15 | NUR ---
PATIENT REPORTS MINIMAL RELIEF FROM PERCOCET GIVEN AT 1215.
--- NOTE | 2019-04-19 13:46 | NUR ---
PATIENT STATES SHE HAD NO RELIEF FROM BACK AND LEG PAIN WITH TORDOL.CALL PLACED TO DR. FLORES TO ADVISE OF NON-EFFECTIVENESS OF MEDICACTION, PATIENT CONTINUES TO RATE PAIN 9/10 NO ANSWER, AND UNBLE TO LEAVE CALL BACK NUMBER.
--- NOTE | 2019-04-19 15:21 | NUR ---
Nursing screen received and chart reviewed. If patient has a decline in ADLs, transfers, or functional mobility, please send OT orders for an evaluation. Thank you. Olimpia Franklin, OTR/L
--- NOTE | 2019-04-19 15:41 | NUR ---
PATIENT C/O NAUSEA MEDICATED WITH ZOFRAN ORDERED PRN.
[2019-04-19 16:00] VITALS: BP 124/66
--- NOTE | 2019-04-19 17:54 | NUR ---
PATIENT C/O PAIN 10/10 MEDICATED WITH MORPHINE ORDERED PRN.
[2019-04-19 20:00] VITALS: BP 143/72
--- NOTE | 2019-04-19 22:24 | NUR ---
PATIENT MEDICATED WITH MORPHINE FOR COMPLAINTS OF BACK PAIN. WILL CONTINUE TO MONITOR. CALL LIGHT IN REACH.
[2019-04-20] VITALS: BP 161/76
--- NOTE | 2019-04-20 01:47 | NUR ---
MEDICATED WITH PERCOCET FOR COMPLAINTS OF BACK PAIN.
--- NOTE | 2019-04-20 03:00 | NUR ---
MEDICATED WITH MORPHINE AGAIN. NO SIGNS OR SYMPTOMS OF DISTRESS NOTED.
--- NOTE | 2019-04-20 03:13 | NUR ---
24 HR chart check completed.
--- NOTE | 2019-04-20 07:59 | NUR ---
PT COMPLAINS OF 9/10 BACK PAIN. MEDICATED PER ORDER. WILL MONITOR FOR RELIEF. VOICES NO OTHER CONCERNS AT THIS TIME. RESTING IN BED. CALL LIGHT PATRICA CHESTER.
[2019-04-20] MEDS ORDERED: DOXYCYCLINE100 M3 PO (09:07)
[2019-04-20] MEDS ORDERED: PREDNISONE10 MG PO (09:07)
--- NOTE | 2019-04-20 09:27 | NUR ---
MORPHINE PARTIALLY EFFECTIVE. PT REQUESTING PERCOCET. MEDICATED PER ORDER. WILL MONITOR FOR RELIEF. VOICES NO OTHER CONCERNS AT THIS TIME. RESTING IN BED. CALL LIGHT WITHIN REACH.
--- NOTE | 2019-04-20 09:52 | NUR ---
Discharge instructions reviewed with patient/family. Patient receptive and verbalizes understanding. Follow-up care arranged. Written instructions given to patient/family. The Discharge Plan/Instructions have been completed.
== END 2019-04-20 09:52 | disposition home or self-care (01) | DRG 720 ==
LOC: ED 16:56 → 4E 17:59 → EDHOLD 17:59 → 4E 19:06
PROVIDERS: Emergency Medicine; Family Medicine; Hospitalist; ADMIT Internal Medicine
DX: A41.9 Sepsis, unspecified organism (principal); J18.9 Pneumonia, unspecified organism; R65.20 Severe sepsis without septic shock; J96.11 Chronic respiratory failure with hypoxia; E87.8 Other disorders of electrolyte and fluid balance, not elsewhere classified; M81.0 Age-related osteoporosis without current pathological fracture; I10 Essential (primary) hypertension; F33.9 Major depressive disorder, recurrent, unspecified; M54.6 Pain in thoracic spine; G89.29 Other chronic pain; F17.210 Nicotine dependence, cigarettes, uncomplicated; E55.9 Vitamin D deficiency, unspecified; E87.6 Hypokalemia; D47.3 Essential (hemorrhagic) thrombocythemia; R73.9 Hyperglycemia, unspecified; F41.1 Generalized anxiety disorder; J44.1 Chronic obstructive pulmonary disease with (acute) exacerbation; J44.0 Chronic obstructive pulmonary disease with (acute) lower respiratory infection; G43.909 Migraine, unspecified, not intractable, without status migrainosus; Z99.81 Dependence on supplemental oxygen; Z71.6 Tobacco abuse counseling; Z90.710 Acquired absence of both cervix and uterus; Z98.42 Cataract extraction status, left eye; Z98.41 Cataract extraction status, right eye; Z83.6 Family history of other diseases of the respiratory system; Z82.49 Family history of ischemic heart disease and other diseases of the circulatory system; Z88.1 Allergy status to other antibiotic agents; Z88.8 Allergy status to other drugs, medicaments and biological substances; Z79.899 Other long term (current) drug therapy; Z85.41 Personal history of malignant neoplasm of cervix uteri; Z98.1 Arthrodesis status

== ENCOUNTER 2019-05-16 20:08 | Inpatient (IN) | payer OTHER ==
[~2019-05-16] VITALS: Ht 160 cm; Wt 59.1 kg
[~2019-05-16 20:08] MED LIST changes: +ALBUTEROL0.63 MG/3 INH; +AUGMENTIN 500500 MG PO; +EFFER-K10 MEQ PO; +FERRETTS325 M1 PO; +GABAPENTIN600 MG PO; +LIPITOR20 MG PO; +MELATONIN5 M6 PO; +MUCINEX D ER 61 EACH PO; +TESSALON PERLE100 MG PO; +TOFRANIL25 MG PO; +VITAMIN D5000 UNIT PO
[2019-05-16 20:17] VITALS: BP 107/38
[2019-05-16 21:31] LABS: BASO # 0.1 10*3/uL (0.0-0.1); BASO % 0.7 % (0.0-1.0); EOS # 0.1 10*3/uL (0.0-0.4); EOS % 1.4 % (1.0-4.0); HEMATOCRIT 37.5 % (37.0-47.0); HEMOGLOBIN 11.7 g/dl (12.0-16.0); MEAN CELL VOLUME 95.9 fl (81.0-99.0); MEAN CORPUSCULAR HGB 29.9 pg (27.0-31.0); MEAN CORPUSCULAR HGB CONC 31.2 g/dl (33.0-37.0); MEAN PLATELET VOLUME 9.3 fl (9.6-12.3); MONO # 0.6 10*3/uL (0.1-1.0); MONO % 6.4 % (3.0-9.0); NEUT # 5.8 10*3/uL (2.3-7.9); NEUT % 60.3 % (47.0-73.0); PLATELET COUNT AUTOMATED 388 10*3/uL (130-400); RED BLOOD COUNT 3.91 10*6/uL (4.10-5.10); RED CELL DISTRI WIDTH 14.8 % (0-14.5); WHITE BLOOD COUNT 9.7 10*3/uL (4.8-10.8)
[2019-05-16 21:48] LABS: ALBUMIN 2.9 gm/dl (3.1-4.5); ALKALINE PHOSPHATASE 93 U/L (45-117); BUN 9 mg/dl (7-24); CHLORIDE 105 mmol/L (98-107); CREATININE 0.75 mg/dL (0.55-1.02); POTASSIUM 3.9 mmol/L (3.5-5.1); SGOT/AST 8 IU/L (3-35); SGPT/ALT 13 U/L (12-78); SODIUM 137 mmol/L (136-145); TOTAL PROTEIN 5.8 gm/dL (6.4-8.2)
[2019-05-17 00:15] VITALS: BP 145/66
--- NOTE | 2019-05-17 00:15 | NUR ---
NURSE TO NURSE REPORT RECEIVED AT BEDSIDE FROM IRASEMA BREWER.
--- NOTE | 2019-05-17 00:15 | NUR ---
Time: 14 A 58 year old FEMALE admitted to 5E under services of BRITTANI NÚÑEZ DO. Pt. arrived via stretcher from ER. Chief complaint: EDEMA. LISBETH GUNTER
--- NOTE | 2019-05-17 01:02 | NUR ---
DR MAIN CALLED AND MADE AWARE THAT HOME MEDICATIONS ARE UP TO DATE. OK TO RESTART ALL HOME MEDS, AND NEW ORDERS RECEIVED.
--- NOTE | 2019-05-17 02:01 | NUR ---
PATIENT REQUESTING PAIN MEDICATION FOR LEFT LOWER LEG AND FOOT RATED 9/10 ON 0/10 SCALE. PERCOCET ADMINISTERED PRESCRIBED. WILL MONITOR FOR EFFECTIVENESS.
--- NOTE | 2019-05-17 03:01 | NUR ---
PATIENT RESTING WITH EYES CLOSED. RESPIRATIONS EASY AND UNLABORED. CALL LIGHT IN REACH. WILL MONITOR.
[2019-05-17 06:49] LABS: BASO # 0.1 10*3/uL (0.0-0.1); BASO % 1.4 % (0.0-1.0); EOS # 0.1 10*3/uL (0.0-0.4); HEMATOCRIT 38.8 % (37.0-47.0); HEMOGLOBIN 12.1 g/dl (12.0-16.0); LYMPH # 2.7 10*3/uL (1.3-4.4); LYMPH % 41.4 % (27.0-41.0); MEAN CELL VOLUME 94.4 fl (81.0-99.0); MEAN CORPUSCULAR HGB 29.4 pg (27.0-31.0); MEAN CORPUSCULAR HGB CONC 31.2 g/dl (33.0-37.0); MEAN PLATELET VOLUME 10.1 fl (9.6-12.3); MONO # 0.6 10*3/uL (0.1-1.0); MONO % 8.3 % (3.0-9.0); NEUT # 3.1 10*3/uL (2.3-7.9); NEUT % 46.7 % (47.0-73.0); PLATELET COUNT AUTOMATED 339 10*3/uL (130-400); RED BLOOD COUNT 4.11 10*6/uL (4.10-5.10); RED CELL DISTRI WIDTH 14.9 % (0-14.5); WHITE BLOOD COUNT 6.6 10*3/uL (4.8-10.8)
[2019-05-17 07:00] LABS: BUN 7 mg/dl (7-24); CHLORIDE 106 mmol/L (98-107); CREATININE 0.72 mg/dL (0.55-1.02); POTASSIUM 3.9 mmol/L (3.5-5.1); SODIUM 140 mmol/L (136-145)
[2019-05-17 08:00] VITALS: BP 126/63
--- NOTE | 2019-05-17 09:00 | NUR ---
Country Manager in to talk to patient. Patient states lives at home with family. There are few steps in the home. Physician: sandi aquino [facility] Home health services: none Patient's level of ADLs: INDEPENDENT Patient has working utilities: all working DME: home oxygen, portable tanks ,nebulizer from [facility] Follow-up physician's appointment after d/c: will be made by hospitalist nurse director upon discharge Does patient want to access PORTAL?: no Discharge plan discussed with patient, she lives at home with family, is independent in adls and ambulation, she states she will return home when medically stable and denies any home needs. ISAC EDGAR
[2019-05-17 12:00] VITALS: BP 124/70
[2019-05-17 16:00] VITALS: BP 124/67
--- NOTE | 2019-05-17 16:45 | NUR ---
PT IS NEW TO ME, SO IN TO COMPLETE ASSESSMENT. PT STATES SHE IS HAVING LOWER LEFT LEG PAIN, BUT THAT IS WHY SHE IS HERE. SHE IS ASKING WHEN HER PAIN MEDICATIONS ARE DUE. NEXT DOSE IS 1800.
--- NOTE | 2019-05-17 17:57 | NUR ---
PT STATES SHE IS HAVING PAIN IN HER LOWER BACK AND RATES IT A 9/10 AND WANTS SOMETHING FOR PAIN. PRN PO OXYCODONE IS GIVEN AT THIS TIME. WILL CONTINUE TO MONITOR THE PATIENT. CALL LIGHT WITHIN REACH
[2019-05-17 20:00] VITALS: BP 116/58
[2019-05-18] VITALS: BP 114/53
--- NOTE | 2019-05-18 03:13 | NUR ---
PATIENT MEDICATED WITH PERCOCET FOR COMPLAINTS OF BACK PAIN. RATES 11/04. WILL CHECK EFFECTIVENESS.
[2019-05-18 06:52] LABS: BASO % 0.2 % (0.0-1.0); HEMATOCRIT 38.5 % (37.0-47.0); HEMOGLOBIN 11.8 g/dl (12.0-16.0); LYMPH # 1.4 10*3/uL (1.3-4.4); LYMPH % 12.9 % (27.0-41.0); MEAN CELL VOLUME 94.6 fl (81.0-99.0); MEAN CORPUSCULAR HGB CONC 30.6 g/dl (33.0-37.0); MEAN PLATELET VOLUME 9.5 fl (9.6-12.3); MONO # 0.4 10*3/uL (0.1-1.0); MONO % 4.1 % (3.0-9.0); NEUT # 8.8 10*3/uL (2.3-7.9); NEUT % 82.6 % (47.0-73.0); PLATELET COUNT AUTOMATED 408 10*3/uL (130-400); RED BLOOD COUNT 4.07 10*6/uL (4.10-5.10); RED CELL DISTRI WIDTH 14.4 % (0-14.5); WHITE BLOOD COUNT 10.7 10*3/uL (4.8-10.8)
[2019-05-18 07:19] LABS: CHLORIDE 105 mmol/L (98-107); POTASSIUM 4.6 mmol/L (3.5-5.1); SODIUM 140 mmol/L (136-145)
[2019-05-18 07:38] LABS: BUN 10 mg/dl (7-24); CHOLESTEROL 155 mg/dL (<200); CREATININE 0.82 mg/dL (0.55-1.02); HDL CHOLESTEROL 46 mg/dl (40-60); LDL CHOLESTEROL 87 mg/dL (9-159); THYROID STIM HORMONE (HS) 0.259 uIU/ml (0.358-4.75); TRIGLYCERIDES 110 mg/dl (<150); VLDL CHOLESTEROL 22 mg/dL (6-40)
[2019-05-18 07:57] LABS: VITAMIN D, 25-HYDROXY 31.8 ng/mL (30-100)
[2019-05-18 08:00] VITALS: BP 110/70
--- NOTE | 2019-05-18 09:00 | NUR ---
case management visits with patient, she will return home when medically stable and denies any home needs
--- NOTE | 2019-05-18 11:15 | NUR ---
MORPHINE GIVEN FOR C/O BACK PAIN. RATES 9/10 ON PAIN SCALE. WILL MONITOR.
[2019-05-18 12:00] VITALS: BP 103/51
--- NOTE | 2019-05-18 12:25 | NUR ---
MORPHINE HELPING BACK PAIN PER PT.
--- NOTE | 2019-05-18 13:41 | NUR ---
PERCOCET GIVEN FOR C/O BACK PAIN. RATES 9/10 ON PAIN SCALE. WILL MONITOR.
--- NOTE | 2019-05-18 14:45 | NUR ---
PERCOCET HELPING, NOT FULLY EFFECTIVE. WILL CONTINUE TO MONITOR.
[2019-05-18 16:00] VITALS: BP 102/50
--- NOTE | 2019-05-18 18:54 | NUR ---
MORPHINE GIVEN FOR C/O BACK PAIN. RATES 9/10 ON PAIN SCALE. WILL MONITOR.
[2019-05-18 20:00] VITALS: BP 122/76
--- NOTE | 2019-05-18 21:52 | NUR ---
PATIENT REQUESTING PERCOCET FOR BACK PAIN. PERCOCET GIVEN AT THIS TIME. RATES PAIN 01/05. WILL CHECK EFFECTIVENESS.
[2019-05-19] VITALS: BP 160/73
--- NOTE | 2019-05-19 | NUR ---
PATIENT SLEEPING. RESPIRATIONS EASY, NON LABORED. NO SIGNS OF DISTRESS. PERCOCET EFFECTIVE. BED IN LOWEST POSTION CALL LIGHT WITHIN REACH. WILL CONTINUE TO MONITOR.
--- NOTE | 2019-05-19 04:44 | NUR ---
PATIENT AWAKE, REQUESTING MORPHINE FOR BACK PAIN. RATES 8/. MEDICATED AT THIS TIME. WILL CHECK EFFECTIVENESS.
--- NOTE | 2019-05-19 06:00 | NUR ---
PATIENT SLEEPING. NO SIGNS OF DISTRESS. RESPIRATIONS EASY, NON LABORED. MORPHINE EFFECTIVE. WILL CONTINUE TO MONITOR.
[2019-05-19 06:19] LABS: BASO % 0.2 % (0.0-1.0); HEMATOCRIT 39.4 % (37.0-47.0); HEMOGLOBIN 12.2 g/dl (12.0-16.0); LYMPH # 1.3 10*3/uL (1.3-4.4); LYMPH % 10.1 % (27.0-41.0); MEAN CELL VOLUME 95.4 fl (81.0-99.0); MEAN CORPUSCULAR HGB 29.5 pg (27.0-31.0); MONO # 0.3 10*3/uL (0.1-1.0); MONO % 2.6 % (3.0-9.0); NEUT # 10.8 10*3/uL (2.3-7.9); NEUT % 86.5 % (47.0-73.0); PLATELET COUNT AUTOMATED 412 10*3/uL (130-400); RED BLOOD COUNT 4.13 10*6/uL (4.10-5.10); WHITE BLOOD COUNT 12.5 10*3/uL (4.8-10.8)
[2019-05-19 06:30] LABS: BUN 14 mg/dl (7-24); CHLORIDE 103 mmol/L (98-107); CREATININE 0.73 mg/dL (0.55-1.02); POTASSIUM 5.2 mmol/L (3.5-5.1); SODIUM 139 mmol/L (136-145)
[2019-05-19 08:00] VITALS: BP 128/59
--- NOTE | 2019-05-19 08:25 | NUR ---
MEDICATED WITH PO PERCOCET ORDERED PER PT REQUEST FOR C/O LLE PAIN RATED 5/10.
--- NOTE | 2019-05-19 09:02 | NUR ---
DR STAUFFER NOTIFIED OF CONSULT.
--- NOTE | 2019-05-19 10:28 | NUR ---
MEDICATION EFFECTIVE FOR PAIN.
[2019-05-19 12:00] VITALS: BP 121/62
--- NOTE | 2019-05-19 13:10 | NUR ---
MEDICATED WITH IV MORPHINE ORDERED PER PT REQUEST FOR C/O PAIN TO BACK RATED 8/10.
--- NOTE | 2019-05-19 13:35 | NUR ---
case management visits with patient, she will return home when medically stable, she will have Dr Orlando see her, no needs at this time
--- NOTE | 2019-05-19 14:00 | NUR ---
MEDICATION EFFECTIVE FOR PAIN.
[2019-05-19 16:00] VITALS: BP 156/84
--- NOTE | 2019-05-19 17:15 | NUR ---
MEDICATED WITH PO PERCOCET ORDERED PER PT REQUEST FOR C/O LLE/BACK PAIN RATED 4/10.
--- NOTE | 2019-05-19 18:42 | NUR ---
MEDICATION EFFECTIVE FOR PAIN.
[2019-05-19 20:00] VITALS: BP 139/78
--- NOTE | 2019-05-19 22:07 | NUR ---
PT GIVEN MORPHINE PER REQUEST AT THIS TIME FOR C/O BACK PAIN, RATES PAIN 8/10. ASSESSMENT COMPLETE AT THIS TIME. NO SHORTNESS OF BREATH NOTED ON ROOM AIR. ALL SAFETY MEASURES IN PLACE. CALL LIGHT IN REACH.
--- NOTE | 2019-05-19 23:07 | NUR ---
MORPHINE EFFECTIVE PER PT.
[2019-05-20] VITALS: BP 133/73
--- NOTE | 2019-05-20 02:27 | NUR ---
PT GIVEN PERCOCET AT THIS TIME FOR C/O BACK PAIN. WILL MONITOR FOR EFFECTIVENESS. CALL LIGHT IN REACH.
--- NOTE | 2019-05-20 03:27 | NUR ---
PERCOCET EFFECTIVE PER PT.
--- NOTE | 2019-05-20 06:01 | NUR ---
PT GIVEN MORPHINE AT THIS TIME FOR C/O BACK PAIN, RATES PAIN AN 8. WILL MONITOR FOR EFFECTIVENESS. CALL LIGHT IN REACH.
[2019-05-20 06:36] LABS: BUN 16 mg/dl (7-24); CHLORIDE 102 mmol/L (98-107); CREATININE 0.74 mg/dL (0.55-1.02); POTASSIUM 4.3 mmol/L (3.5-5.1); SODIUM 139 mmol/L (136-145)
[2019-05-20 08:00] VITALS: BP 137/80
--- NOTE | 2019-05-20 09:00 | NUR ---
case management visits with patient, she states she will return home when medically stable and denies any home needs, case management will follow
--- NOTE | 2019-05-20 10:29 | NUR ---
PERCOCET GIVEN FOR C/O BACK PAIN. RATES 9/10 ON PAIN SCALE. WILL MONITOR.
--- NOTE | 2019-05-20 11:30 | NUR ---
PERCOCET HELPING BACK PAIN, NOT FULLY EFFECTIVE. WILL CONITNUE TO MONITOR.
[2019-05-20 12:00] VITALS: BP 148/83
--- NOTE | 2019-05-20 14:05 | NUR ---
MORPHINE GIVEN FOR C/O BACK PAIN. RATES 7/10 ON PAIN SCALE. WILL MONITOR.
--- NOTE | 2019-05-20 15:10 | NUR ---
MORPHINE APPEARS EFFECTIVE. PT RESTING IN BED WITH EYES CLOSED.
--- NOTE | 2019-05-20 15:54 | NUR ---
OT EVAL COMPLETED AT BS. EVAL ONLY RIK DOUGLAS, OTR/L, CLT
[2019-05-20 16:00] VITALS: BP 128/63
--- NOTE | 2019-05-20 18:27 | NUR ---
PERCOCET GIVEN FOR C/O BACK PAIN. RATES 7/10 ON PAIN SCALE. WILL MONITOR.
--- NOTE | 2019-05-20 19:30 | NUR ---
TOOK OVER CARE OF PT. PT SITTING UP IN BED. ALERT ORIENTED AND PLEASANT MOOD WITH NO COMPLAINTS VOICED AT THIS TIME. RESPIRATIONS UNLABORED ON ROOM AIR. WHITE BOARD UPDATED. WILL MONITOR. CALL LIGHT IN REACH.
[2019-05-20 20:00] VITALS: BP 131/70
--- NOTE | 2019-05-20 22:07 | NUR ---
PT GIVEN MORPHINE 2 MG AT THIS TIME FOR C/O BACK PAIN. WILL MONITOR FOR EFFECTIVENESS. CALL LIGHT IN REACH.
--- NOTE | 2019-05-20 23:07 | NUR ---
MORPHINE EFFECTIVE PER PT.
[2019-05-21] VITALS: BP 162/82
--- NOTE | 2019-05-21 01:21 | NUR ---
PT IV DUE TO BE CHANGED. WILL ATTEMPT TO START NEW IV SITE IN AM WHILE GIVING AM MEDICATIONS.
--- NOTE | 2019-05-21 03:34 | NUR ---
PT GIVEN PERCOCET AT THIS TIME FOR C/O BACK PAIN. WILL MONITOR FOR EFFECTIVENESS. CALL LIGHT IN REACH.
--- NOTE | 2019-05-21 04:34 | NUR ---
PERCOCET EFFECTIVE AT THIS TIME.
--- NOTE | 2019-05-21 06:15 | NUR ---
PT C/O PAIN TO BACK. MORPHINE 2 MG GIVEN PER PT REQUEST WILL MONITOR FOR EFFECTIVENESS. CALL LIGHT IN REACH.
[2019-05-21 06:40] LABS: BUN 20 mg/dl (7-24); CHLORIDE 100 mmol/L (98-107); CREATININE 0.68 mg/dL (0.55-1.02); POTASSIUM 4.5 mmol/L (3.5-5.1); SODIUM 137 mmol/L (136-145)
[2019-05-21 08:00] VITALS: BP 153/82
--- NOTE | 2019-05-21 09:00 | NUR ---
case management visits with patient, she will return home when medically stable and denies any home needs
[2019-05-21 12:00] VITALS: BP 116/50
[2019-05-21 16:00] VITALS: BP 155/85
--- NOTE | 2019-05-21 19:30 | NUR ---
TOOK OVER CARE OF PT. PT SITTING UP IN BED, ALERT ORIENTED AND PLEASANT MOOD. RESPIRATIONS EASY AND UNLABORED ON ROOM AIR. NO SHORTNESS OF BREATH PER PT. ASSESSMENT COMPLETE. I/E WHEEZE T/O WITH RHONCHI. ALL SAFETY MEASURES IN PLACE. CALL LIGHT IN REACH.
--- NOTE | 2019-05-21 19:50 | NUR ---
PT C/O BACK PAIN. PERCOCET GIVEN AT THIS TIME. WILL MONITOR FOR EFFECTIVENESS. CALL LIGHT IN REACH.
[2019-05-21 20:00] VITALS: BP 152/80
--- NOTE | 2019-05-21 20:50 | NUR ---
PERCOCET EFFECTIVE PER PT.
--- NOTE | 2019-05-21 21:15 | NUR ---
THIS NURSE OFFERS PATIENT SOMETHING TO HELP WITH A BOWEL MOVEMENT, IT HAS BEEN 3 DAYS SINCE LAST BM PER PT. PT DENIES MEDICATION AT THIS TIME, STATES THAT THIS IS NORMAL FOR HER. PT STATES THAT SHE WILL CONSIDER TAKING SOMETHING TOMORROW. WILL PASS ON IN SHIFT REPORT.
--- NOTE | 2019-05-21 23:18 | NUR ---
PT GIVEN MORPHINE AT THIS TIME FOR PAIN. WILL MONITOR FOR EFFECTIVENESS. CALL LIGHT IN REACH.
[2019-05-22] VITALS: BP 140/71
--- NOTE | 2019-05-22 | NUR ---
24 HR chart check completed.
[2019-05-22 06:54] LABS: BASO % 0.2 % (0.0-1.0); HEMATOCRIT 40.8 % (37.0-47.0); HEMOGLOBIN 12.9 g/dl (12.0-16.0); LYMPH # 1.7 10*3/uL (1.3-4.4); LYMPH % 16.4 % (27.0-41.0); MEAN CELL VOLUME 92.1 fl (81.0-99.0); MEAN CORPUSCULAR HGB 29.1 pg (27.0-31.0); MEAN CORPUSCULAR HGB CONC 31.6 g/dl (33.0-37.0); MONO # 0.5 10*3/uL (0.1-1.0); MONO % 5.2 % (3.0-9.0); NEUT # 7.8 10*3/uL (2.3-7.9); NEUT % 77.6 % (47.0-73.0); PLATELET COUNT AUTOMATED 341 10*3/uL (130-400); RED BLOOD COUNT 4.43 10*6/uL (4.10-5.10); RED CELL DISTRI WIDTH 14.3 % (0-14.5); WHITE BLOOD COUNT 10.1 10*3/uL (4.8-10.8)
[2019-05-22 07:06] LABS: BUN 21 mg/dl (7-24); CHLORIDE 103 mmol/L (98-107); POTASSIUM 4.6 mmol/L (3.5-5.1); SODIUM 138 mmol/L (136-145)
[2019-05-22 08:00] VITALS: BP 141/80
[2019-05-22 13:16] VITALS: BP 142/71
[2019-05-22 16:00] VITALS: BP 145/81
--- NOTE | 2019-05-22 19:44 | NUR ---
24 HR chart check completed.
[2019-05-22 20:00] VITALS: BP 166/75
--- NOTE | 2019-05-22 23:00 | NUR ---
PATIENT REQUESTING PAIN MEDICATION FOR BACK PAIN RATED 8/10 ON 0/10 SCALE. PERCOCET ADMINISTERED PRESCRIBED. WILL MONITOR FOR EFFECTIVENESS.
[2019-05-23] VITALS: BP 169/87
--- NOTE | 2019-05-23 | NUR ---
PATIENT STATES THAT PERCOCET WAS ALITTLE EFFECTIVE. RATES PAIN 6/10 ON 0/10 SCALE AT THIS TIME. WILL MONITOR.
--- NOTE | 2019-05-23 00:28 | NUR ---
PATIENT REQUESTING PAIN MEDICATION FOR BACK PAIN RATED 8/10 ON 0/10 SCALE. MORPHINE ADMINISTERED PRESCRIBED. WILL MONITOR FOR EFFECTIVENESS.
--- NOTE | 2019-05-23 01:28 | NUR ---
PATIENT RESTING WITH EYES CLOSED. RESPIRATIONS EASY AND UNLABORED. CALL LIGHT IN REACH. WILL MONITOR.
--- NOTE | 2019-05-23 02:34 | NUR ---
PATIENT RESTING WITH EYES CLOSED. RESPIRATIONS EASY AND UNLABORED. CALL LIGHT IN REACH. WILL MONITOR.
--- NOTE | 2019-05-23 04:00 | NUR ---
PATIENT RSTING WITH EYES CLOSED. RESPIRATIONS EASY AND UNLABORED. CALL LIGHT IN REACH. WILL MONITOR FOR EFFECTIVENESS.
--- NOTE | 2019-05-23 06:14 | NUR ---
PATIENT REQUESTING PAIN MEDICATION FOR BACK PAIN RATED 8/10 ON 0/10 SCALE.NORCO ADMINISTERED PRESCRIBED. WILL MONITOR FOR EFFECTIVENESS.
[2019-05-23 08:00] VITALS: BP 140/80
[2019-05-23] MEDS ORDERED: NATURE'S BLEND F1 MG PO (08:56)
[2019-05-23] MEDS ORDERED: PREDNISONE10 MG PO (08:56)
--- NOTE | 2019-05-23 11:17 | NUR ---
Discharge instructions reviewed with patient/family. Patient receptive and verbalizes understanding. Follow-up care arranged. Written instructions given to patient/family. IV REMOVED. PETTY COX
--- NOTE | 2019-05-23 11:22 | NUR ---
PATIENT OFF FLOOR AT THIS TIME.
== END 2019-05-23 11:22 | disposition home or self-care (01) | DRG 139 ==
LOC: ED 20:08 → 5E 23:24 → EDHOLD 23:24 → 5E 23:55
PROVIDERS: Emergency Medicine; Internal Medicine; Student in an Organized Health Care Education/Training Program; ADMIT Internal Medicine
DX: J18.9 Pneumonia, unspecified organism (principal); L03.116 Cellulitis of left lower limb; E44.0 Moderate protein-calorie malnutrition; F17.210 Nicotine dependence, cigarettes, uncomplicated; J96.11 Chronic respiratory failure with hypoxia; I10 Essential (primary) hypertension; F41.1 Generalized anxiety disorder; F32.9 Major depressive disorder, single episode, unspecified; D64.9 Anemia, unspecified; J44.1 Chronic obstructive pulmonary disease with (acute) exacerbation; M81.0 Age-related osteoporosis without current pathological fracture; E53.8 Deficiency of other specified B group vitamins; R73.9 Hyperglycemia, unspecified; J44.0 Chronic obstructive pulmonary disease with (acute) lower respiratory infection; J20.9 Acute bronchitis, unspecified; E87.3 Alkalosis; J45.901 Unspecified asthma with (acute) exacerbation; G43.909 Migraine, unspecified, not intractable, without status migrainosus; Z79.899 Other long term (current) drug therapy; Z88.1 Allergy status to other antibiotic agents; Z88.8 Allergy status to other drugs, medicaments and biological substances; Z98.42 Cataract extraction status, left eye; Z98.41 Cataract extraction status, right eye; Z71.6 Tobacco abuse counseling; Z99.81 Dependence on supplemental oxygen; Z90.710 Acquired absence of both cervix and uterus; Z82.49 Family history of ischemic heart disease and other diseases of the circulatory system; Z83.3 Family history of diabetes mellitus; Z82.3 Family history of stroke; Z83.6 Family history of other diseases of the respiratory system; Z68.23 Body mass index [BMI] 23.0-23.9, adult

== ENCOUNTER 2019-06-11 05:45 | Inpatient (IN) | payer OTHER ==
[~2019-06-11] VITALS: Ht 160 cm; Wt 62.2 kg
[2019-06-11] VITALS (7 sets, daily range): BP systolic 102–146; BP diastolic 58–75
[2019-06-11 06:20] LABS: BASO # 0.1 10*3/uL (0.0-0.1); BASO % 0.6 % (0.0-1.0); EOS # 0.2 10*3/uL (0.0-0.4); EOS % 1.6 % (1.0-4.0); HEMATOCRIT 41.5 % (37.0-47.0); HEMOGLOBIN 13.6 g/dl (12.0-16.0); LYMPH # 0.6 10*3/uL (1.3-4.4); LYMPH % 6.3 % (27.0-41.0); MEAN CORPUSCULAR HGB 29.8 pg (27.0-31.0); MEAN CORPUSCULAR HGB CONC 32.8 g/dl (33.0-37.0); MEAN PLATELET VOLUME 9.6 fl (9.6-12.3); MONO # 0.6 10*3/uL (0.1-1.0); MONO % 5.9 % (3.0-9.0); NEUT # 8.3 10*3/uL (2.3-7.9); NEUT % 85.4 % (47.0-73.0); PLATELET COUNT AUTOMATED 352 10*3/uL (130-400); RED BLOOD COUNT 4.56 10*6/uL (4.10-5.10); RED CELL DISTRI WIDTH 14.7 % (0-14.5); WHITE BLOOD COUNT 9.7 10*3/uL (4.8-10.8)
[2019-06-11 06:30] LABS: INTERNATIONAL NORM RATIO 0.9 (2.0-3.5)
[2019-06-11 06:36] LABS: ALBUMIN 3.8 gm/dl (3.1-4.5); ALKALINE PHOSPHATASE 70 U/L (45-117); BUN 10 mg/dl (7-24); CHLORIDE 100 mmol/L (98-107); CREATININE 0.94 mg/dL (0.55-1.02); POTASSIUM 4.2 mmol/L (3.5-5.1); SGOT/AST 17 IU/L (3-35); SGPT/ALT 25 U/L (12-78); SODIUM 134 mmol/L (136-145); TOTAL PROTEIN 7.3 gm/dL (6.4-8.2); TROPONIN I < 0.015 ng/ml (<0.045)
--- NOTE | 2019-06-11 08:34 | NUR ---
Time: 819 A 58 year old FEMALE admitted to 5E under services of BRITTANI NÚÑEZ DO. Pt. arrived via bed from ER. Chief complaint: AVERY SYED
[2019-06-11] MEDS ORDERED: TOFRANIL25 MG PO (09:02)
--- NOTE | 2019-06-11 09:43 | NUR ---
Nutritional Support Services Note: Pt evaluated for malnutrition. Ht.5'3 Wt.137#. Wt is stable from last admission 04/20/19. Albumin is wnl. So no signs of malnutrition at this time. Will follow. Michaelle Ventura Rdn Ld
--- NOTE | 2019-06-11 12:45 | NUR ---
I SPOKE WITH DR. MAIN REGARDING PATIENT MED REQ BEING UP TO DATE. ORDER TO RESTART PERCOCET GIVEN BY PHYSICIAN.
--- NOTE | 2019-06-11 13:12 | NUR ---
PT MEDICATED WITH PRN PERCOCET FOR C/O BACK PAIN. RATES PAIN 11/04. WILL MONITOR.
--- NOTE | 2019-06-11 19:50 | NUR ---
24 HOUR CHART CHECK COMPLETED
--- NOTE | 2019-06-11 20:41 | NUR ---
PRN PERCOCET GIVEN AT THIS TIME FOR 10/10 BACK AND CHEST PAIN FROM COUGHING. PATIENT A&O X3 AT THIS TIME.
--- NOTE | 2019-06-11 21:40 | NUR ---
PATIENT STATES THAT PAIN IS NOW A 7/10 AT THIS TIME, REMAINS A&O X3.
[2019-06-12] VITALS: BP 126/65
--- NOTE | 2019-06-12 05:38 | NUR ---
PRN PERCOCET GIVEN AT THIS TIME FOR 8/10 PAIN IN THE PATIENT'S BACK. PATIENT A&O X3 AT THIS TIME. CALL LIGHT WITHIN REACH WILL CONTINUE TO MONITOR.
[2019-06-12 06:20] LABS: BASO % 0.2 % (0.0-1.0); HEMATOCRIT 42.6 % (37.0-47.0); HEMOGLOBIN 13.5 g/dl (12.0-16.0); LYMPH % 14.8 % (27.0-41.0); MEAN CELL VOLUME 92.6 fl (81.0-99.0); MEAN CORPUSCULAR HGB 29.3 pg (27.0-31.0); MEAN CORPUSCULAR HGB CONC 31.7 g/dl (33.0-37.0); MEAN PLATELET VOLUME 9.8 fl (9.6-12.3); MONO # 0.6 10*3/uL (0.1-1.0); MONO % 8.6 % (3.0-9.0); NEUT # 4.9 10*3/uL (2.3-7.9); NEUT % 76.1 % (47.0-73.0); PLATELET COUNT AUTOMATED 355 10*3/uL (130-400); RED CELL DISTRI WIDTH 14.7 % (0-14.5); WHITE BLOOD COUNT 6.4 10*3/uL (4.8-10.8)
--- NOTE | 2019-06-12 06:31 | NUR ---
PATIENT STATED THAT HER BACK PAIN WAS NOW A 6/10 AFTER PRN PERCOCET ADMINISTRATION.
[2019-06-12 06:41] LABS: BUN 10 mg/dl (7-24); CHLORIDE 103 mmol/L (98-107); CREATININE 0.75 mg/dL (0.55-1.02); PHOSPHOROUS 2.3 mg/dL (2.5-4.9); POTASSIUM 4.4 mmol/L (3.5-5.1); SODIUM 136 mmol/L (136-145)
[2019-06-12 08:00] VITALS: BP 124/69
--- NOTE | 2019-06-12 08:03 | NUR ---
INITIAL ASSESSMENT COMPLETE. DENIES SOB AT REST.RHONCHI AND EXP WHEEZES NOTED ON ASSESSMENT. SPO2 97% ON RA.DENIES ANY NEEDS AT THIS TIME.CALL LIGHT IN REACH.
--- NOTE | 2019-06-12 09:07 | NUR ---
DR FLORES ROUNDED AND SEEN PT. DISCUSSED PT REQUEST REGARDING DUONEBS. ORDER RECEIVED.PT REQUESTING BREATHING TX AT THIS TIME.NOTIFIED RTTOAN.
[2019-06-12 12:00] VITALS: BP 100/62
--- NOTE | 2019-06-12 12:15 | NUR ---
PT RESTING IN BED WITH EYES CLOSED. NO DISTRESS NOTED. RESPS EASY ON RA. CALL LIGHT IN REACH.
[2019-06-12 16:00] VITALS: BP 113/65
[2019-06-12 20:00] VITALS: BP 149/81
--- NOTE | 2019-06-12 20:00 | NUR ---
24 HOUR CHART CHECK COMPLETE
--- NOTE | 2019-06-12 21:11 | NUR ---
PRN PERCOCET GIVEN AT THIS TIME FOR PATIENT COMPLAINT OF 9/10 BACK PAIN. PATIENT A&O X3 AT THIS TIME.
--- NOTE | 2019-06-12 22:00 | NUR ---
PATIENT STATED THAT PAIN IN HER BACK WAS NOW AT A 5/10 AFTER PRN PERCOCET GIVEN. PATIENT REMAINS A&O X3
[2019-06-13] VITALS: BP 94/46
--- NOTE | 2019-06-13 05:29 | NUR ---
PRN PERCOCET GIVEN ORALLY AT THIS TIME FOR 8/10 BACK PAIN PER PATIENT, PATIENT IS A&O X3.
--- NOTE | 2019-06-13 06:20 | NUR ---
PATIENT STATED THAT BACK PAIN WAS NOW AT A 4/10 AFTER PRN PERCOCET ADMINISTRATION
[2019-06-13 06:39] LABS: BASO % 0.6 % (0.0-1.0); EOS % 0.6 % (1.0-4.0); HEMATOCRIT 37.8 % (37.0-47.0); HEMOGLOBIN 11.9 g/dl (12.0-16.0); LYMPH # 0.9 10*3/uL (1.3-4.4); LYMPH % 26.2 % (27.0-41.0); MEAN CELL VOLUME 92.2 fl (81.0-99.0); MEAN CORPUSCULAR HGB CONC 31.5 g/dl (33.0-37.0); MEAN PLATELET VOLUME 9.7 fl (9.6-12.3); MONO # 0.4 10*3/uL (0.1-1.0); MONO % 11.6 % (3.0-9.0); NEUT % 60.7 % (47.0-73.0); PLATELET COUNT AUTOMATED 262 10*3/uL (130-400); RED CELL DISTRI WIDTH 14.7 % (0-14.5); WHITE BLOOD COUNT 3.4 10*3/uL (4.8-10.8)
[2019-06-13 07:21] LABS: BUN 13 mg/dl (7-24); CHLORIDE 106 mmol/L (98-107); CREATININE 0.73 mg/dL (0.55-1.02); POTASSIUM 3.9 mmol/L (3.5-5.1); SODIUM 138 mmol/L (136-145)
[2019-06-13 08:00] VITALS: BP 109/65
--- NOTE | 2019-06-13 10:26 | NUR ---
TYLENOL 650 MG GIVEN FOR C/O PAIN,12/05.
[2019-06-13 12:00] VITALS: BP 121/74
--- NOTE | 2019-06-13 14:02 | NUR ---
PERCOSET 7.5 MG GIVEN FOR C/O PAIN,01/05.
--- NOTE | 2019-06-13 15:52 | NUR ---
SITTING UP IN BED,RT AT BEDSIDE FOR BREATHING TX. PT VOICES NO NEEDS.STABLE AT THIS TIME. CALL LIGHT IN REACH.
[2019-06-13 16:00] VITALS: BP 143/84
--- NOTE | 2019-06-13 17:43 | NUR ---
TYLENOL 650 MG GIVEN FOR C/O PAIN,12/05.
[2019-06-13 20:00] VITALS: BP 145/71
[2019-06-14] VITALS: BP 116/64
--- NOTE | 2019-06-14 07:10 | NUR ---
VITAL SIGNS STABLE. A&O X3. BHARGAV, POSITIVE PEDAL PULSES. RESPIRATIONS NON LABORED.PO2 95% RA. CAPILLARY REFILL <3 SEC. HEART SOUNDS NORMAL. LUNGS SOUNDS HAD I&E WHEEZING BILATERALLY. ABDOMEN SOFT, NON TENDER, NON DISTENDED. SKIN DRY, WARM, AND INTACT. PATIENT IS NOT IN PAIN AT THIS TIME. IV SITE TO THE RIGHT WRIST IS INTACT. PT IS VERY COOPERATIVE AND PLEASANT. CALL COKER WITHIN REACH. WILL CONTINUE TO MONITOR. CHILANGO JETER SPTESFAYECC
--- NOTE | 2019-06-14 08:00 | NUR ---
assessment complete, agree with student assessment. i/e wheezing. pt complain of pain, aware no pain medication due at this time.
[2019-06-14 08:02] VITALS: BP 110/72
--- NOTE | 2019-06-14 09:00 | NUR ---
Digital Media Buyer in to talk to patient. Patient states lives at home with alone. There are no steps in the home. Physician: sandi aquino [facility] Home health services: none Patient's level of ADLs: INDEPENDENT Patient has working utilities: all working DME: home oxygen, portable tanks, nebulizer from [email or web address] Follow-up physician's appointment after d/c: will be made by hospitalist nurse director upon discharge Does patient want to access PORTAL?: no Discharge plan discussed with patient, she lives at home alone, she is independent in adls and ambulation, she states she will be dicharged home today and denies any home needs. ISAC EDGAR
[2019-06-14] MEDS ORDERED: TAMIFLU 75MG CA75 MG PO (09:52)
--- NOTE | 2019-06-14 10:40 | NUR ---
Discharge instructions reviewed with patient/family. Patient receptive and verbalizes understanding. Follow-up care arranged. Written instructions given to patient/family. [place] REMOVED. ALL BELONGININGS WITH PT. CONDITION STABLE. CHILANGO JETER SPCC DARLEEN BAEZ
== END 2019-06-14 10:40 | disposition home or self-care (01) | DRG 720 ==
LOC: ED 05:45 → EDHOLD 06:55 → 5E 07:21
PROVIDERS: Emergency Medicine; Family Medicine; Internal Medicine; ADMIT Internal Medicine
DX: A41.9 Sepsis, unspecified organism (principal); J44.1 Chronic obstructive pulmonary disease with (acute) exacerbation; E87.1 Hypo-osmolality and hyponatremia; K76.0 Fatty (change of) liver, not elsewhere classified; F32.9 Major depressive disorder, single episode, unspecified; E55.9 Vitamin D deficiency, unspecified; G89.29 Other chronic pain; M54.9 Dorsalgia, unspecified; F41.1 Generalized anxiety disorder; M81.0 Age-related osteoporosis without current pathological fracture; J10.00 Influenza due to other identified influenza virus with unspecified type of pneumonia; R73.9 Hyperglycemia, unspecified; J96.11 Chronic respiratory failure with hypoxia; F17.210 Nicotine dependence, cigarettes, uncomplicated; Z99.81 Dependence on supplemental oxygen; Z85.41 Personal history of malignant neoplasm of cervix uteri; Z90.710 Acquired absence of both cervix and uterus; Z87.01 Personal history of pneumonia (recurrent); Z90.49 Acquired absence of other specified parts of digestive tract; Z98.42 Cataract extraction status, left eye; Z98.41 Cataract extraction status, right eye; Z82.69 Family history of other diseases of the musculoskeletal system and connective tissue; Z82.49 Family history of ischemic heart disease and other diseases of the circulatory system; Z82.5 Family history of asthma and other chronic lower respiratory diseases; Z79.899 Other long term (current) drug therapy; Z71.6 Tobacco abuse counseling; Z88.1 Allergy status to other antibiotic agents; Z88.8 Allergy status to other drugs, medicaments and biological substances; Z88.6 Allergy status to analgesic agent; J96.20 Acute and chronic respiratory failure, unspecified whether with hypoxia or hypercapnia

== ENCOUNTER 2019-06-30 09:51 | Inpatient (IN) | payer OTHER ==
[2019-06-30] VITALS (8 sets, daily range): BP systolic 116–142; BP diastolic 73–85
[~2019-06-30] VITALS: Ht 160 cm; Wt 54.9 kg
[~2019-06-30 09:51] MED LIST changes: +TAMIFLU 75MG CA75 MG PO
[2019-06-30 10:29] LABS: BASO # 0.1 10*3/uL (0.0-0.1); BASO % 1.2 % (0.0-1.0); EOS # 0.1 10*3/uL (0.0-0.4); EOS % 0.9 % (1.0-4.0); HEMATOCRIT 42.8 % (37.0-47.0); HEMOGLOBIN 13.9 g/dl (12.0-16.0); LYMPH # 2.4 10*3/uL (1.3-4.4); LYMPH % 36.3 % (27.0-41.0); MEAN CELL VOLUME 90.5 fl (81.0-99.0); MEAN CORPUSCULAR HGB 29.4 pg (27.0-31.0); MEAN CORPUSCULAR HGB CONC 32.5 g/dl (33.0-37.0); MEAN PLATELET VOLUME 10.4 fl (9.6-12.3); MONO # 0.5 10*3/uL (0.1-1.0); NEUT # 3.6 10*3/uL (2.3-7.9); NEUT % 53.5 % (47.0-73.0); PLATELET COUNT AUTOMATED 308 10*3/uL (130-400); RED BLOOD COUNT 4.73 10*6/uL (4.10-5.10); WHITE BLOOD COUNT 6.7 10*3/uL (4.8-10.8)
[2019-06-30 10:39] LABS: ACT PARTIAL THROMBO TIME 25.4 SECONDS (20.0-32.1); INTERNATIONAL NORM RATIO 0.9 (2.0-3.5)
[2019-06-30 10:45] LABS: ALBUMIN 3.6 gm/dl (3.1-4.5); ALKALINE PHOSPHATASE 68 U/L (45-117); BUN 10 mg/dl (7-24); CHLORIDE 101 mmol/L (98-107); CREATININE 0.82 mg/dL (0.55-1.02); LIPASE 44 U/L (73-393); POTASSIUM 3.4 mmol/L (3.5-5.1); SGOT/AST 11 IU/L (3-35); SGPT/ALT 14 U/L (12-78); SODIUM 137 mmol/L (136-145); TOTAL PROTEIN 7.2 gm/dL (6.4-8.2)
[2019-06-30 10:46] LABS: TROPONIN I < 0.015 ng/ml (<0.045)
[2019-06-30 10:53] LABS: BILIRUBIN NEGATIVE (NEGATIVE); BLOOD NEGATIVE (NEGATIVE); CLARITY CLEAR (CLEAR); COLOR YELLOW (YELLOW); GLUCOSE NEGATIVE (NEGATIVE); KETONE NEGATIVE (NEGATIVE); LEUKO ESTERASE NEGATIVE (NEGATIVE); NITRITE NEGATIVE (NEGATIVE); PH 6.5 (5.0-9.0); SPECIFIC GRAVITY 1.005 (1.005-1.030); UROBILINOGEN 0.2 E.U./dl (0.2-1.0)
[2019-06-30 10:56] LABS: RBC 0-2 rbc/hpf (0-2)
--- NOTE | 2019-06-30 11:30 | NUR ---
Pt to ct at this time.
--- NOTE | 2019-06-30 11:45 | NUR ---
Pt arrived back from ct scan
--- NOTE | 2019-06-30 12:39 | NUR ---
In to see pt at this time.All side rails up and call button within reach.Pt does not need anything at this time.
--- NOTE | 2019-06-30 14:50 | NUR ---
Time: 1449 A 58 year old FEMALE admitted to 5E under services of GLADYS STARK DO. Pt. arrived via wheel chair from ER. Chief complaint: RUQ ABD PAIN. ELYSSA RODRIGUEZ
[2019-06-30] MEDS ORDERED: CYPROHEPTADINE H4 M1 PO (15:57)
--- NOTE | 2019-06-30 16:30 | NUR ---
PT MEDICATED WITH NORCO AT THIS TIME FOR PAIN PER DR STANLEY.
--- NOTE | 2019-06-30 16:31 | NUR ---
PHYSICIAN WAS NOTIFIED OF DR. VAZQUEZ CONSULT. RESPONSE OF NOTIFICATION WAS THANK YOU. NALINI SPARKS
[2019-06-30] MEDS ORDERED: VITAMIN D35000 UNIT PO (18:45)
--- NOTE | 2019-06-30 20:21 | NUR ---
MORPHINE GIVEN FOR C/O BACK AND SIDE PAIN. RATED PAIN A 9/10 WITH 10 BEING THE WORST. SEE EMAR. REINFORCED USE OF CALL LIGHT.
--- NOTE | 2019-06-30 22:00 | NUR ---
PATIENT STATED THAT MEDICATION HELPED A LITTLE WITH HER PAIN
--- NOTE | 2019-06-30 22:44 | NUR ---
ZOFRAN GIVEN PER PRN ORDER FOR C/O NAUSEA. SEEEMAR. REINFORCED USE OF CALL LIGHT.
--- NOTE | 2019-06-30 23:55 | NUR ---
RESTORIL GIVEN PER PRN ORDER FOR INABILITY TO SLEEP . SEE EMAR. REINFORCED USEOF CALL LIGHT
[2019-07-01] VITALS: BP 106/66
--- NOTE | 2019-07-01 06:00 | NUR ---
PATIENT MEDICATED WITH MORPHINE PER PRN ORDER FOR C/O BACK/ SIDE PAIN.
[2019-07-01 06:21] LABS: BASO # 0.1 10*3/uL (0.0-0.1); BASO % 1.7 % (0.0-1.0); EOS # 0.1 10*3/uL (0.0-0.4); EOS % 2.6 % (1.0-4.0); HEMOGLOBIN 12.5 g/dl (12.0-16.0); LYMPH # 2.2 10*3/uL (1.3-4.4); LYMPH % 46.9 % (27.0-41.0); MEAN CELL VOLUME 91.8 fl (81.0-99.0); MEAN CORPUSCULAR HGB 29.4 pg (27.0-31.0); MEAN CORPUSCULAR HGB CONC 32.1 g/dl (33.0-37.0); MEAN PLATELET VOLUME 10.6 fl (9.6-12.3); MONO # 0.5 10*3/uL (0.1-1.0); MONO % 11.2 % (3.0-9.0); NEUT # 1.7 10*3/uL (2.3-7.9); NEUT % 37.6 % (47.0-73.0); PLATELET COUNT AUTOMATED 312 10*3/uL (130-400); RED BLOOD COUNT 4.25 10*6/uL (4.10-5.10); RED CELL DISTRI WIDTH 14.1 % (0-14.5); WHITE BLOOD COUNT 4.6 10*3/uL (4.8-10.8)
[2019-07-01 06:45] LABS: ALBUMIN 2.7 gm/dl (3.1-4.5); BUN 8 mg/dl (7-24); CHLORIDE 105 mmol/L (98-107); CHOLESTEROL 123 mg/dL (<200); CREATININE 0.67 mg/dL (0.55-1.02); PHOSPHOROUS 4.5 mg/dL (2.5-4.9); POTASSIUM 3.7 mmol/L (3.5-5.1); SGOT/AST 14 IU/L (3-35); SGPT/ALT 12 U/L (12-78); SODIUM 139 mmol/L (136-145); TRIGLYCERIDES 141 mg/dl (<150); VLDL CHOLESTEROL 28 mg/dL (6-40)
[2019-07-01 06:52] LABS: ALKALINE PHOSPHATASE 51 U/L (45-117); HDL CHOLESTEROL 33 mg/dl (40-60); LDL CHOLESTEROL 62 mg/dL (9-159); THYROID STIM HORMONE (HS) 0.675 uIU/ml (0.358-4.75); TOTAL PROTEIN 5.6 gm/dL (6.4-8.2)
[2019-07-01 08:00] VITALS: BP 97/47
--- NOTE | 2019-07-01 09:00 | NUR ---
[place] Ma[place] in to talk to patient. Patient states lives at home with alone. There are no steps in the home. Physician: sandi aquino [facility] Home health services: none Patient's level of ADLs: INDEPENDENT Patient has working utilities: all working DME: home oxygen, portable tanks, nebulizer from [facility] Follow-up physician's appointment after d/c: will be made by hospitalist nurse director upon discharge Does patient want to access PORTAL?: no Discharge plan discussed with patient,she states she lives at home, is independent in adls and ambulation she states she will return home when medically stable. discussed with her VNA and educated her on their services, she stated she was familiar with VNA and didn't feel she needed any home services at this time. ISAC EDGAR
--- NOTE | 2019-07-01 10:00 | NUR ---
PT COMPLAIN OF RIGHT UPPER QUAD PAIN, PRN MEDICATIONS GIVEN. WILL MONITOR FOR EFFECTIVENESS. PT AWARE OF PLAN TO HAVE DR. DORSEY SEE PATIENT FOR POSSIBLE SCOPE TOMORROW, AGREEABLE
--- NOTE | 2019-07-01 10:40 | NUR ---
PAIN MEDICATION EFFECTIVE
[2019-07-01 12:00] VITALS: BP 111/43
--- NOTE | 2019-07-01 14:00 | NUR ---
PT COMPLAIN OF PAIN RIGHT UPPER QUAD, 01/05. MORPHINE GIVEN. WILL MONITOR FOR EFFECTIVENESS
--- NOTE | 2019-07-01 15:28 | NUR ---
PT STATES MORPHINE SOMEWHAT EFFECTIVE, PAIN STILL 7/10, NORCO REQUESTED, GIVEN. WILL MONITOR FOR EFFECTIVENESS
[2019-07-01 16:00] VITALS: BP 111/58
--- NOTE | 2019-07-01 18:36 | NUR ---
PT COMPLAIN OF ABDOMINAL PAIN 12/05, MORPHINE GIVEN. WILL MONITOR FOR EFFECTIVENESS
[2019-07-01 20:00] VITALS: BP 134/46
[2019-07-02] VITALS (11 sets, daily range): BP systolic 87–144; BP diastolic 44–76
[2019-07-02 06:53] LABS: BUN 5 mg/dl (7-24); CHLORIDE 109 mmol/L (98-107); CREATININE 0.63 mg/dL (0.55-1.02); POTASSIUM 3.8 mmol/L (3.5-5.1); SODIUM 141 mmol/L (136-145)
--- NOTE | 2019-07-02 08:32 | NUR ---
pt refuses fleet enema as well as tap water enema. per patient stool is clear/brown color possibly some blood in stool. discuss with patient the importance of enemas and having a clear prep. pt understands that if not cleared out properly that the test will not be able to accurately visualize, pt states understanding.
--- NOTE | 2019-07-02 09:00 | NUR ---
case management visits with patient, she states she will return home when medically stable and denies any home needs, patient is having testing done today, case management will follow
--- NOTE | 2019-07-02 09:46 | NUR ---
PT MEDICATED WITH PRN MORPHINE FOR C/O RIGHT FLANK PAIN RATED A 9/10. WILL MONITOR FOR EFFECTIVENESS.
--- NOTE | 2019-07-02 10:20 | NUR ---
MORPHINE EFFECTIVE FOR PAIN
--- NOTE | 2019-07-02 14:33 | NUR ---
Nutritional Support Services Note: Pt is NPO at this time for scope. Continues to c/o right upper quadrant pain, gastritis, gallbladder sludge. Ht.5'3 Wt.121# She states she has a 15# weight loss in the past month. Moderate protein calorie malnutrition noted. Recommend Ensure po TID when diet advances po. Will follow. Michaelle Ventura Rdn Ld
--- NOTE | 2019-07-02 17:03 | NUR ---
PAIN 02/04
--- NOTE | 2019-07-02 17:08 | NUR ---
PAIN 01/05
--- NOTE | 2019-07-02 17:13 | NUR ---
PAIN 8/10 PATIENT LESS AGGITATED.
--- NOTE | 2019-07-02 17:38 | NUR ---
PATIENT TO FLOOR VIA NURSES AIDES
--- NOTE | 2019-07-02 17:41 | NUR ---
RETURN FROM COLONOSCOPY VIA BED
--- NOTE | 2019-07-02 19:15 | NUR ---
PT MEDICATED W/NORCO FOR C/O RIGHT SIDE PAIN 12/05. RESTING QUIETLY IN BED WATCHING TV. CALL LIGHT IN REACH.
[2019-07-03] VITALS: BP 120/74; BP 146/73
--- NOTE | 2019-07-03 03:42 | NUR ---
NORCO GIVEN FOR C/O PAIN. RATED PAIN A 8/10 WITH 10 BEING THE WORST. SEE EMAR. REINFORCED USE OF CALL LIGHT.
[2019-07-03 07:06] LABS: BASO % 0.8 % (0.0-1.0); EOS # 0.1 10*3/uL (0.0-0.4); EOS % 2.9 % (1.0-4.0); HEMATOCRIT 37.4 % (37.0-47.0); HEMOGLOBIN 11.9 g/dl (12.0-16.0); LYMPH # 2.3 10*3/uL (1.3-4.4); LYMPH % 47.3 % (27.0-41.0); MEAN CELL VOLUME 91.2 fl (81.0-99.0); MEAN CORPUSCULAR HGB CONC 31.8 g/dl (33.0-37.0); MEAN PLATELET VOLUME 10.5 fl (9.6-12.3); MONO # 0.5 10*3/uL (0.1-1.0); MONO % 10.9 % (3.0-9.0); NEUT # 1.8 10*3/uL (2.3-7.9); NEUT % 37.9 % (47.0-73.0); PLATELET COUNT AUTOMATED 228 10*3/uL (130-400); RED CELL DISTRI WIDTH 13.5 % (0-14.5); WHITE BLOOD COUNT 4.8 10*3/uL (4.8-10.8)
[2019-07-03 07:28] LABS: BUN 3 mg/dl (7-24); CHLORIDE 108 mmol/L (98-107); CREATININE 0.66 mg/dL (0.55-1.02); POTASSIUM 3.5 mmol/L (3.5-5.1); SODIUM 142 mmol/L (136-145)
[2019-07-03 08:00] VITALS: BP 113/65
--- NOTE | 2019-07-03 08:54 | NUR ---
C/O PAIN OF 01/05. REQUESTED IV MS. GIVEN AT THIS TIME. WILL CONT TO MONITOR. CALL LIGHT IN REACH.
--- NOTE | 2019-07-03 09:54 | NUR ---
IV MS EFF. WILL CONT TO MONITOR. CALL LIGHT IN REACH.
[2019-07-03 12:00] VITALS: BP 118/58
--- NOTE | 2019-07-03 13:19 | NUR ---
C/O PAIN TO RLQ OF 910. REQUESTED IV MS AND GIVEN AT THIS TIME. WILL CONT TO MONITOR. CALL LIGHT IN REACH.
--- NOTE | 2019-07-03 14:19 | NUR ---
RESTING QUIETLY AT THIS TIME. WILL CONT TO MONTIOR. CALL LIGHT IN REACH.
--- NOTE | 2019-07-03 15:53 | NUR ---
PAIN 8/10 TO RLQ, REQUESTED NORCO GIVEN AT THIS TIME. WILL CONT TO MONITOR. CALL LIGHT IN REACH.
[2019-07-03 16:00] VITALS: BP 124/62
--- NOTE | 2019-07-03 16:44 | NUR ---
PT RESTING QUIETLY AT THIS TIME. WILL CONT TO MONITOR. CALL LIGHT IN REACH.
--- NOTE | 2019-07-03 17:46 | NUR ---
C/O PAIN TO R SIDE OF 01/05. REQUESTED IV MS. GIVEN AT THIS TIME. WILL CONT TO MONITOR.
--- NOTE | 2019-07-03 18:46 | NUR ---
PT RESTING QUIETLY AT THIS TIME. WILL CONT TO MONITOR. CALL LIGHT IN REACH.
--- NOTE | 2019-07-03 19:51 | NUR ---
PATIENT MEDICATED WITH NORCO FOR COMPLAINTS OF ABDOMINAL PAIN. WILL CONTINUE TO MONITOR. CALL LIGHT IN REACH.
[2019-07-03 20:00] VITALS: BP 115/68
--- NOTE | 2019-07-03 22:04 | NUR ---
PATIENT MEDICATED WITH MORPHINE FOR CONTINUED COMPLAINTS OF ABDOMINAL PAIN. CALL LIGHT IN REACH.
[2019-07-04] VITALS: BP 118/51
--- NOTE | 2019-07-04 00:40 | NUR ---
[facility] CALL LIGHT IN REACH.
--- NOTE | 2019-07-04 03:56 | NUR ---
MEDICATED WITH MORPHINE AT THIS TIME FOR COMPLAINTS OF PAIN.
--- NOTE | 2019-07-04 05:34 | NUR ---
PATIENT MEDICATED WITH NORCO FOR COMPLAINTS OF ABDOMINAL PAIN.
[2019-07-04 08:00] VITALS: BP 98/53
--- NOTE | 2019-07-04 09:45 | NUR ---
[place] given for patient c/o chronic back pain rated 9/10. Will monitor.
--- NOTE | 2019-07-04 10:30 | NUR ---
Patient states Morphine helps better than [place].
--- NOTE | 2019-07-04 11:35 | NUR ---
Morphine given per patient request for c/o chronic back pain. Will monitor.
--- NOTE | 2019-07-04 11:39 | NUR ---
Morphine given for patient c/o chronic back pain. Pain is rated 9/10. Will monitor.
[2019-07-04 12:00] VITALS: BP 126/62
--- NOTE | 2019-07-04 12:10 | NUR ---
Morphine effective. Patient asleep w/respirations >12.
--- NOTE | 2019-07-04 13:20 | NUR ---
[place] given for patient c/o chronic back pain. Will monitor.
--- NOTE | 2019-07-04 14:10 | NUR ---
Mcdavid effective. Patient rates pain 7/10.
[2019-07-04 16:00] VITALS: BP 105/50
--- NOTE | 2019-07-04 16:12 | NUR ---
PT REQUESTED AND WAS MEDICATED WITH MORPHINE IV FOR C/O [place] BACK PAIN. CALL LIGHT IN REACH. WILL MONITOR
--- NOTE | 2019-07-04 16:50 | NUR ---
Morphine effective. Patient satisfied no signs of distress.
--- NOTE | 2019-07-04 19:53 | NUR ---
PATIENT MEDICATED WITH NORCO FOR COMPLAINTS OF BACK PAIN. WILL CONTINUE TO MONITOR. CALL LIGHT IN REACH.
[2019-07-04 20:00] VITALS: BP 149/69
--- NOTE | 2019-07-04 22:37 | NUR ---
PATIENT MEDICATED WITH MORPHINE FOR COMPLAINTS OF BACK PAIN. WILL CONTINUE TO MONITOR. CALL LIGHT IN REACH.
--- NOTE | 2019-07-04 23:05 | NUR ---
PATIENT MEDICATED WITH BENADRYL FOR COMPLAINTS OF INSOMNIA. WILL CONTINUE TO MONITOR. CALL LIGHT IN REACH.
[2019-07-05] VITALS: BP 139/64
[2019-07-05 08:00] VITALS: BP 130/76
--- NOTE | 2019-07-05 09:00 | NUR ---
case management visits with patient, she will return home when medically stable and denies any home needs, case management will follow
[2019-07-05 12:00] VITALS: BP 119/69
[2019-07-05 16:00] VITALS: BP 147/69
--- NOTE | 2019-07-05 19:38 | NUR ---
PATIENT MEDICATED WITH MORPHINE FOR COMPLAINTS OF ABDOMINAL PAIN. WILL CONTINUE TO MONITOR. CALL LIGHT IN REACH.
[2019-07-05 20:00] VITALS: BP 128/49
--- NOTE | 2019-07-05 21:40 | NUR ---
PATIENT MEDICATED WITH NORCO FOR COMPLAINTS OF ABDOMINAL PAIN. WILL CONTINUE TO MONITOR. CALL LIGHT IN REACH.
--- NOTE | 2019-07-05 22:25 | NUR ---
MEDICATED WITH BENADRYL FOR COMPLAINTS OF INSOMNIA. WILL CONTINUE TO MONITOR. CALL LIGHT IN REACH.
[2019-07-06] VITALS: BP 89/49; BP 91/58
--- NOTE | 2019-07-06 03:18 | NUR ---
MEDICATED WITH MORPHINE FOR COMPLAINTS OF BACK AND ABDOMINAL PAIN. WILL CONTINUE TO MONITOR. CALL LIGHT IN REACH.
--- NOTE | 2019-07-06 05:40 | NUR ---
PATIENT MEDICATED WITH NORCO FOR CONTINUED COMPLAINTS OF BACK AND ABDOMINAL PAIN. WILL CONTINUE TO MONITOR.
[2019-07-06 08:00] VITALS: BP 126/94
--- NOTE | 2019-07-06 08:35 | NUR ---
medicated with prn morphine for c/o stamach back pain rated at 8 out of 10.
--- NOTE | 2019-07-06 09:00 | NUR ---
case management visits with patient, she states she will return home when medically stable and denies any home needs, case management will follow
--- NOTE | 2019-07-06 10:01 | NUR ---
MORPHINE EARLIER HELPED SOME. MEDICATED WITH PRN NORCO PER ORDER AND REQUEST.
--- NOTE | 2019-07-06 11:00 | NUR ---
VALERIO HELPED SOME.
[2019-07-06 12:00] VITALS: BP 123/74
--- NOTE | 2019-07-06 12:52 | NUR ---
MEDICATED WITH PRN MORPHINE PER ORDER AND REQUEST FOR R ABD PAIN INTO BACK RATED AT AN 8 OUT OF 10.
--- NOTE | 2019-07-06 15:28 | NUR ---
MEDICATED WITH PRN NORCO PER ORDER AND REQUEST.
[2019-07-06 16:00] VITALS: BP 115/71
--- NOTE | 2019-07-06 16:46 | NUR ---
PATIENT REFUSING TO HAVE VITAL SIGNS DONE, DID NOT WANT HEART MONITOR PUT ON EITHER BUT IT IS ON. JER AWARE SHE WANTS SOMETHING IV FOR PAIN. NEW ORDER RECEIVED.
--- NOTE | 2019-07-06 17:12 | NUR ---
MEDICATED WITH PRN MORPHINE PER ORDER AND REQUEST.
--- NOTE | 2019-07-06 18:33 | NUR ---
MORPHINE GIVEN EARLIER HELPED. IT JUST DOESN'T LAST PER PATIENT.
--- NOTE | 2019-07-06 19:40 | NUR ---
PT. RESTING IN BED; AROUSES EASILY UPON ENTERING THE ROOM. 02 INTACT AT 2LPM VIA NASAL CANNNULA. APPEARS TO BE COMFORTABLE; IN NO DISTRESS. CALL LIGHT WITHIN REACH.
--- NOTE | 2019-07-06 19:42 | NUR ---
ASKING WHEN HER PAIN MEDICATION IS DUE; STATES THAT SHE IS HAVING PAIN.
--- NOTE | 2019-07-06 19:44 | NUR ---
MEDICATED WITH NORCO FOR ABDOMINAL/BACK PAIN.
[2019-07-06 20:00] VITALS: BP 125/70
--- NOTE | 2019-07-06 21:35 | NUR ---
MEDICATED WITH MS FOR C/O ABDOMINAL/BACK PAIN.
[2019-07-07] VITALS (8 sets, daily range): BP systolic 91–160; BP diastolic 50–88
--- NOTE | 2019-07-07 | NUR ---
RESTING IN BED WITH EYES CLOSED; PAIN MEDICATION APPARENTLY EFFECTIVE.
--- NOTE | 2019-07-07 01:24 | NUR ---
PT. REQUESTING MS. MEDICATED WITH MS FOR ABD/BACK PAIN.
--- NOTE | 2019-07-07 04:42 | NUR ---
MEDICATED WITH NORCO PER PRN ORDER FOR COMPLAINTS OF RIGHT SIDED FLANK/BACK PAIN RATING A 9. CALL LIGHT WITHIN REACH. WILL MONITOR FOR EFFECTIVENESS
--- NOTE | 2019-07-07 06:30 | NUR ---
RESTING IN BED WITH EYES CLOSED; PAIN MEDICATION APPARENTLY EFFFECTIVE. CALL LIGHT WITHIN REACH.
--- NOTE | 2019-07-07 07:30 | NUR ---
MEDICATED WITH PRN MORPHINE PER ORDER AND REQUEST FOR R SIDE ABD INTO BACK PAIN.
--- NOTE | 2019-07-07 09:00 | NUR ---
case management visits with patient, she states she will return home when medically stable and denies any home needs, case management will follow
--- NOTE | 2019-07-07 10:49 | NUR ---
PATIENT MEDICATED WITH PRN MORPHINE PER ORDER AND REQUEST.
--- NOTE | 2019-07-07 12:15 | NUR ---
IV started right forearm with #22 angiocath after 1 attempts. The IV site was prepped with Chloraprep. Heparin lock attached. Sterile dressing applied. Patient tolerated precedure well. Procedure performed according to [facility] policy & procedure. SANTOS ANDRE
--- NOTE | 2019-07-07 16:07 | NUR ---
MEDICATED WITH PRN MORPHINE PER ORDER AND REQUEST FOR R ABD INTO BACK PAIN.
--- NOTE | 2019-07-07 17:30 | NUR ---
MORPHINE EARLIER HELPED SOME.
--- NOTE | 2019-07-07 18:33 | NUR ---
PATIENT WANTING MORE PAIN MEDICATION EDUCATED HER THAT IT WAS DECREASED AND NOW Q4H. NORCO DISCONTINUED PATIENT STATES UNDERSTANDING.
--- NOTE | 2019-07-07 19:58 | NUR ---
PATIENT REQUESTING PAIN MEDICATION FOR RUQ PAIN AND BACK PAIN RATED 9/10 ON 0/10 SCALE. MORPHINE ADMINISTERED PRESCRIBED. WILL MONITOR FOR EFFECTIVENESS.
--- NOTE | 2019-07-07 20:58 | NUR ---
PATIENT STATES THAT MORPHINE WAS A LITTLE EFFECTIVE FOR PAIN, RATES 6/10 AT THIS TIME. WILL MONITOR.
--- NOTE | 2019-07-07 21:45 | NUR ---
PATIENT REQUESTING BENEDRYL TO HELP HER SLEEP, DR CLEVELAND CALLED, WAITING FOR NEW ORDERS.
--- NOTE | 2019-07-07 21:53 | NUR ---
ONE TIME DOSE OF BENEDRYL ADMINISTERED FOR SLEEP PRESCRIBED. WILL MONITOR FOR EFFECTIVENESS.
--- NOTE | 2019-07-07 22:53 | NUR ---
PATIENT RESTING WITH EYES CLOSED. RESPIRATIONS EASY AND UNLABORED. CALL LIGHT IN REACH. WILL MONITOR FOR EFFECTIVENESS.
[2019-07-08] VITALS: BP 118/68
--- NOTE | 2019-07-08 01:52 | NUR ---
24 HR chart check completed.
--- NOTE | 2019-07-08 03:49 | NUR ---
PATIENT REQUESTING PAIN MEDICATION FOR RIGHT SIDE ABDOMINAL PAIN RATED 8/10 ON 0/10 SCALE. MORPHINE ADMINISTERED PRESCRIBED. WILL MONITOR FOR EFFECTIVENESS.
[2019-07-08 08:00] VITALS: BP 107/60
--- NOTE | 2019-07-08 11:50 | NUR ---
case management visits with patient, she is a tenative discharge today. she will return home and denies any home needs
[2019-07-08 12:00] VITALS: BP 137/85
[2019-07-08] MEDS ORDERED: Carafate1 GM PO (14:33)
[2019-07-08] MEDS ORDERED: PERCOCET 7.5-31 EACH PO (14:33)
[2019-07-08] MEDS ORDERED: PRILOSEC20 M1 PO (14:33)
--- NOTE | 2019-07-08 15:30 | NUR ---
PT DISCHARGED AT THIS TIME. IV REMOVED AND PRESSURE DRESSING APPLIED. VERBALIZED UNDERSTANDING OF DISCHARGE INSTRUCTIONS.
== END 2019-07-08 15:30 | disposition home or self-care (01) | DRG 241 ==
LOC: ED 09:51 → 5E 13:37 → EDHOLD 13:37 → 5E 14:07
PROVIDERS: Emergency Medicine; Student in an Organized Health Care Education/Training Program; ADMIT Internal Medicine
PROC: 0DBK8ZX Excision of Ascending Colon, Via Natural or Artificial Opening Endoscopic, Diagnostic (ICD-10-PCS; principal; 2019-07-02)
PROC: 0DB68ZX Excision of Stomach, Via Natural or Artificial Opening Endoscopic, Diagnostic (ICD-10-PCS; 2019-07-07)
DX: K29.70 Gastritis, unspecified, without bleeding (principal); K29.80 Duodenitis without bleeding; K44.9 Diaphragmatic hernia without obstruction or gangrene; K82.8 Other specified diseases of gallbladder; E87.6 Hypokalemia; F41.1 Generalized anxiety disorder; E55.9 Vitamin D deficiency, unspecified; J96.11 Chronic respiratory failure with hypoxia; I10 Essential (primary) hypertension; M54.9 Dorsalgia, unspecified; M81.0 Age-related osteoporosis without current pathological fracture; E44.0 Moderate protein-calorie malnutrition; F17.210 Nicotine dependence, cigarettes, uncomplicated; E53.8 Deficiency of other specified B group vitamins; J44.9 Chronic obstructive pulmonary disease, unspecified; K76.0 Fatty (change of) liver, not elsewhere classified; F32.5 Major depressive disorder, single episode, in full remission; G89.29 Other chronic pain; Z71.6 Tobacco abuse counseling; Z99.81 Dependence on supplemental oxygen; Z88.1 Allergy status to other antibiotic agents; Z88.8 Allergy status to other drugs, medicaments and biological substances; Z79.899 Other long term (current) drug therapy; Z90.710 Acquired absence of both cervix and uterus; Z98.42 Cataract extraction status, left eye; Z98.41 Cataract extraction status, right eye; Z82.49 Family history of ischemic heart disease and other diseases of the circulatory system; Z83.6 Family history of other diseases of the respiratory system; K59.00 Constipation, unspecified

== ENCOUNTER 2019-10-07 15:27 | Inpatient (IN) | payer OTHER ==
[~2019-10-07] VITALS: Ht 160 cm; Wt 53.7 kg
[~2019-10-07 15:27] MED LIST changes: +CYPROHEPTADINE H4 M1 PO; +Carafate1 GM PO; -GABAPENTIN600 MG PO; +VITAMIN D35000 UNIT PO
[2019-10-07 15:35] VITALS: BP 170/83
[2019-10-07 16:38] LABS: HEMATOCRIT 41.5 % (37.0-47.0); MEAN CELL VOLUME 94.7 fl (81.0-99.0); MEAN CORPUSCULAR HGB 30.8 pg (27.0-31.0); MEAN CORPUSCULAR HGB CONC 32.5 g/dl (33.0-37.0); MEAN PLATELET VOLUME 9.6 fl (9.6-12.3); PLATELET COUNT AUTOMATED 378 10*3/uL (130-400); RED BLOOD COUNT 4.38 10*6/uL (4.10-5.10)
[2019-10-07 16:50] LABS: ACT PARTIAL THROMBO TIME 26.5 SECONDS (20.0-32.1); INTERNATIONAL NORM RATIO 0.9 (2.0-3.5)
[2019-10-07 16:57] LABS: ALBUMIN 3.2 gm/dl (3.1-4.5); ALKALINE PHOSPHATASE 95 U/L (45-117); BUN 5 mg/dl (7-24); CHLORIDE 105 mmol/L (98-107); CREATININE 0.87 mg/dL (0.55-1.02); LIPASE 51 U/L (73-393); POTASSIUM 4.2 mmol/L (3.5-5.1); SGOT/AST 8 IU/L (3-35); SGPT/ALT 14 U/L (12-78); SODIUM 137 mmol/L (136-145); TOTAL PROTEIN 6.8 gm/dL (6.4-8.2)
[2019-10-07 17:03] LABS: PLATELET SUFFICIENCY NORMAL (NORMAL); TOTAL CELLS COUNTED 100 #CELLS
[2019-10-07 17:27] LABS: BACTERIA TRACE; BILIRUBIN NEGATIVE (NEGATIVE); BLOOD NEGATIVE (NEGATIVE); CLARITY CLEAR (CLEAR); COLOR YELLOW (YELLOW); EPITHELIAL CELLS 21-30; GLUCOSE NEGATIVE (NEGATIVE); KETONE NEGATIVE (NEGATIVE); LEUKO ESTERASE NEGATIVE (NEGATIVE); NITRITE NEGATIVE (NEGATIVE); PH 8.5 (5.0-9.0); RBC 0-2 rbc/hpf (0-2); UROBILINOGEN 0.2 E.U./dl (0.2-1.0)
[2019-10-07 18:42] VITALS: BP 137/59
--- NOTE | 2019-10-07 18:42 | NUR ---
A 58, admitted to , under the services of VERENICE Palmer DO with a diagnosis of GASTROENTERITIS, SEPSIS. Chief complaint is DIARRHEA x2 WEEKS, ABD PAIN. Patient arrived via ambulatory from ER. Monitor applied. Initial assessment completed. Vital signs taken and recorded. VERENICE PALMER DO notified of admission to the unit. Orders received. See assessment for past medical history, medications and allergies. Patient and/or family oriented to unit. [facility] visitation policy reviewed. Clothing/patient valuable form completed. CHE CANNON A
[2019-10-07] MEDS ORDERED: PHARMASSURE FO0.4 MG PO (18:53)
[2019-10-07] MEDS ORDERED: FLUOXETINE HCL40 MG PO (18:54)
--- NOTE | 2019-10-07 18:54 | NUR ---
MED REC UPDATED VIA LIST FROM HOME/CLAIM HISTORY.
--- NOTE | 2019-10-07 19:01 | NUR ---
MORPHINE GIVEN FOR COMPLAINTS OF ABD PAIN AND CHRONIC BACK PAIN, BOTH RATED 8/10. CALL LIGHT IN REACH. IVF GOING WITH EASE, WILL MONITOR.
--- NOTE | 2019-10-07 19:54 | NUR ---
AWARE MED REC WAS UPDATED.
[2019-10-07 20:00] VITALS: BP 133/72
--- NOTE | 2019-10-07 20:01 | NUR ---
MORPHINE EFFECTIVE FOR PAIN PER PATIENT.
[2019-10-08] VITALS: BP 102/64
--- NOTE | 2019-10-08 00:16 | NUR ---
PATIENT MEDICATED WITH MORPHINE, PUSHED OVER 5 MINUTES, FOR PAIN OF 8/10 RUQ TO BACK. WILL CONTINUE TO MONITOR
--- NOTE | 2019-10-08 01:16 | NUR ---
MORPHIONE APPEARS EFFECTIVE. RESTING QUIETLY IN BED, EYES CLOSED. NO DISTRESS NOTED. CALL LIGHT WITHIN REACH
[2019-10-08 06:09] LABS: HEMATOCRIT 39.3 % (37.0-47.0); MEAN CELL VOLUME 95.9 fl (81.0-99.0); MEAN CORPUSCULAR HGB 30.5 pg (27.0-31.0); MEAN CORPUSCULAR HGB CONC 31.8 g/dl (33.0-37.0); MEAN PLATELET VOLUME 10.2 fl (9.6-12.3); PLATELET COUNT AUTOMATED 316 10*3/uL (130-400); RED CELL DISTRI WIDTH 14.2 % (0-14.5); WHITE BLOOD COUNT 26.8 10*3/uL (4.8-10.8)
[2019-10-08 06:24] LABS: BUN 6 mg/dl (7-24); CHLORIDE 105 mmol/L (98-107); CREATININE 0.75 mg/dL (0.55-1.02); POTASSIUM 4.2 mmol/L (3.5-5.1); SODIUM 138 mmol/L (136-145)
[2019-10-08 06:38] LABS: PLATELET SUFFICIENCY NORMAL (NORMAL); TARGET CELLS FEW; TOTAL CELLS COUNTED 100 #CELLS
[2019-10-08 08:00] VITALS: BP 124/70
--- NOTE | 2019-10-08 08:39 | NUR ---
C/O BACK PAIN AT THIS TIME UPON WAKING. MORPHINE GIVEN, PAIN RATED 9/10. CALL LIGHT IN REACH.
--- NOTE | 2019-10-08 09:00 | NUR ---
Deburr Technician in to talk to patient. Patient states lives at home alone with her daughter living across the street. There are 0 steps in the home. Physician: Graeme Perlata [facility]acy: [facility] Home health services: none Patient's level of ADLs: INDEPENDENT Patient has working utilities: yes DME: O2 @ 2-2.5L [place], portable O2 tanks, nebulizer, O2 supplier [employer] Follow-up physician's appointment after d/c: will be made by the hospitalist nurse director upon discharge Does patient want to access PORTAL?: no Discharge plan discussed with patient. She lives at home alone with her daughter checking in on her. She is independent in her ADLs and ambulation. Discussed home health care services and she denies any home needs at this time. When medically stable she will be discharged to home. She states her daughter will provide transportation on discharge. YEYO GUNN
--- NOTE | 2019-10-08 09:16 | NUR ---
SLEEPING, EASILY AWAKENED. MORPHINE EFFECTIVE PER PT.
--- NOTE | 2019-10-08 11:25 | NUR ---
CALLED , FOR COMPLAINTS OF PAIN. PT REQUESTING MORPHINE AT THIS TIME. APPROX 1HR EARLY. OK TO GIVE AND WILL LOOK AT HER CHART. NURSE REQUESTING NORCO. MORPHINE GIVEN, SEE JUN.
[2019-10-08 12:00] VITALS: BP 90/50
--- NOTE | 2019-10-08 12:05 | NUR ---
Nutritional Support Services Note: Pt evaluated for signs of malnutrition. Labs are wnl. Ht.5'3 WT.119# IBW 105-125. Weight recorded in June 2019 121#. She states her appetite hasn't changed. No signs of malnutrition noted at this time. Will follow if needed. She delcines a supplement at this time. Will provide a night snack. Michaelle Ventura Rdn Ld
--- NOTE | 2019-10-08 12:11 | NUR ---
SLEEPING, NO SXS OF DISTRESS. MORPHINE SEEMS EFFECTIVE. CALL LIGHT IN REACH.
--- NOTE | 2019-10-08 14:31 | NUR ---
VERY DROWSY TODAY, SLEEPING MOST OF THE DAY. EASILY AWAKENS BUT NOT HER USUAL SELF PER HER AND THIS NURSE. CALLED THAT SHE COMPLAINS OF GENERALIZED PAIN WITH CHRONIC BACK PAIN AND MULTIPLE SURGERIES TO IT. VOICED I AM UNCOMFORTABLE GIVING ANYMORE MORPHONE FOR HER PAIN UNTIL SHE WAKES UP MORE AND IS MORE ALERT. SAID HE WOULD LOOK AT HER CHART.
[2019-10-08 16:00] VITALS: BP 96/57
[2019-10-08 20:00] VITALS: BP 130/75
--- NOTE | 2019-10-08 21:20 | NUR ---
PATIENT MEDICATED WITH MORPHINE FOR C/O 9/10 ABD PAIN. WILL MONITOR
[2019-10-09] VITALS: BP 108/64
--- NOTE | 2019-10-09 05:00 | NUR ---
Hep Lock discontinued RAN. Site symptomatic, LEAKING. Pressure applied. Sterile dressing applied. JONAS VELOZ
--- NOTE | 2019-10-09 05:02 | NUR ---
IV started left hand with #24 protective cath after 0 attempts. Site prepped with Chloroprep. Sterile dressing applied. Patient tolerated procedure well. JONAS VELOZ
--- NOTE | 2019-10-09 05:03 | NUR ---
PATIENT MEDICATED WITH MORPHINE FOR C/O 9/10 ABD PAIN. WILL MONITOR
[2019-10-09 07:08] LABS: BASO % 0.2 % (0.0-1.0); EOS # 0.2 10*3/uL (0.0-0.4); EOS % 1.9 % (1.0-4.0); HEMATOCRIT 39.1 % (37.0-47.0); LYMPH # 1.1 10*3/uL (1.3-4.4); LYMPH % 12.3 % (27.0-41.0); MEAN CELL VOLUME 95.8 fl (81.0-99.0); MEAN CORPUSCULAR HGB 30.4 pg (27.0-31.0); MEAN CORPUSCULAR HGB CONC 31.7 g/dl (33.0-37.0); MEAN PLATELET VOLUME 10.1 fl (9.6-12.3); MONO # 0.3 10*3/uL (0.1-1.0); MONO % 3.8 % (3.0-9.0); NEUT # 7.3 10*3/uL (2.3-7.9); NEUT % 81.5 % (47.0-73.0); PLATELET COUNT AUTOMATED 332 10*3/uL (130-400); RED BLOOD COUNT 4.08 10*6/uL (4.10-5.10); RED CELL DISTRI WIDTH 13.5 % (0-14.5); WHITE BLOOD COUNT 8.9 10*3/uL (4.8-10.8)
[2019-10-09 07:34] LABS: BUN 13 mg/dl (7-24); CHLORIDE 105 mmol/L (98-107); CREATININE 0.62 mg/dL (0.55-1.02); POTASSIUM 4.2 mmol/L (3.5-5.1); SODIUM 137 mmol/L (136-145)
[2019-10-09 12:00] VITALS: BP 101/35
[2019-10-09 16:00] VITALS: BP 110/56
--- NOTE | 2019-10-09 18:42 | NUR ---
PT C/O BACK PAIN AND STATES THAT IV MORPHINE WORKS BUT DOEAS NOT LAST LONG. SHE REQUEST Q 4 HOURS AND REPORTED INITIAL RELIEF.
--- NOTE | 2019-10-09 19:43 | NUR ---
PATIENTS QUESTIONS AND CONCERNS ANSWERED. NEEDS ADDRESSED.
[2019-10-09 20:00] VITALS: BP 119/50
--- NOTE | 2019-10-09 21:10 | NUR ---
PATIENT MEDICATED WITH NORCO FOR C/O 11/04 BACK/ABD PAIN. WILL CONTINUE TO MONITOR
[2019-10-10] VITALS: BP 129/68
--- NOTE | 2019-10-10 03:26 | NUR ---
PATIENT MEDICATED WITH NORCO FOR C/O 12/05 ABD/BACK PAIN. WILL MONITOR
--- NOTE | 2019-10-10 04:26 | NUR ---
[place] EFFECTIVE
[2019-10-10 06:13] LABS: BASO % 0.1 % (0.0-1.0); HEMATOCRIT 36.5 % (37.0-47.0); LYMPH # 2.2 10*3/uL (1.3-4.4); LYMPH % 10.4 % (27.0-41.0); MEAN CELL VOLUME 94.6 fl (81.0-99.0); MEAN CORPUSCULAR HGB 30.6 pg (27.0-31.0); MEAN CORPUSCULAR HGB CONC 32.3 g/dl (33.0-37.0); MEAN PLATELET VOLUME 10.4 fl (9.6-12.3); MONO # 0.9 10*3/uL (0.1-1.0); MONO % 4.1 % (3.0-9.0); NEUT # 18.2 10*3/uL (2.3-7.9); NEUT % 84.9 % (47.0-73.0); PLATELET COUNT AUTOMATED 353 10*3/uL (130-400); RED BLOOD COUNT 3.86 10*6/uL (4.10-5.10); RED CELL DISTRI WIDTH 13.6 % (0-14.5); WHITE BLOOD COUNT 21.5 10*3/uL (4.8-10.8)
[2019-10-10 06:44] LABS: BUN 15 mg/dl (7-24); CHLORIDE 105 mmol/L (98-107); CREATININE 0.62 mg/dL (0.55-1.02); POTASSIUM 3.9 mmol/L (3.5-5.1); SODIUM 139 mmol/L (136-145)
[2019-10-10 08:00] VITALS: BP 105/40
--- NOTE | 2019-10-10 08:15 | NUR ---
PT MEDICATED WITH PRN MORPHINE FOR C/O BACK PAIN. PT RATES PAIN 9/10. WILL MONITOR.
--- NOTE | 2019-10-10 09:00 | NUR ---
PRN MPRPHINE EFFECTIVE PER PT.
[2019-10-10 12:00] VITALS: BP 122/62
--- NOTE | 2019-10-10 12:22 | NUR ---
PT MEDICATED WITH NORCO FOR C/O RIGHT HIP PAIN. PT RATES PAIN 9/10. WILL MONITOR.
--- NOTE | 2019-10-10 13:10 | NUR ---
PRN NORCO EFFECTIVE PER PT.
[2019-10-10 16:00] VITALS: BP 135/68
--- NOTE | 2019-10-10 16:08 | NUR ---
PT MEDICATED WITH PRN MORPHINE FOR C/O BACK PAIN. PT RATES PAIN 9/10. WILL MONITOR.
[2019-10-10 20:00] VITALS: BP 130/66
--- NOTE | 2019-10-10 20:35 | NUR ---
PATIENT CO BACK PAIN. MEDICATED WITH PRN NORCO. WILL ASSESS EFFECTIVENESS. NO OTHER COMPLAINTS AT THIS TIME. RESPS EASY AND REGULAR. CALL LIGHT IN REACH.
--- NOTE | 2019-10-10 21:35 | NUR ---
PER PATIENT NORCO EFFECTIVE.
--- NOTE | 2019-10-10 23:02 | NUR ---
24 HR chart check completed.
[2019-10-11] VITALS: BP 116/66
--- NOTE | 2019-10-11 00:40 | NUR ---
PATIENT REQUESTING MORPHINE FOR CO BACK PAIN RATED A 10/10. MEDICATED WITH PRN MORPHINE WILL ASSESS EFFECTIVENESS. SEE EMAR.
--- NOTE | 2019-10-11 01:40 | NUR ---
PATIENT SLEEPING. RESPS EASY AND REGULAR. MORPHINE EFFECTIVE. CALL LIGHT WITHIN REACH.
[2019-10-11 05:51] LABS: BASO % 0.2 % (0.0-1.0); HEMATOCRIT 37.3 % (37.0-47.0); LYMPH # 2.2 10*3/uL (1.3-4.4); MEAN CELL VOLUME 94.2 fl (81.0-99.0); MEAN CORPUSCULAR HGB 30.8 pg (27.0-31.0); MEAN CORPUSCULAR HGB CONC 32.7 g/dl (33.0-37.0); MEAN PLATELET VOLUME 10.5 fl (9.6-12.3); MONO # 0.8 10*3/uL (0.1-1.0); MONO % 4.5 % (3.0-9.0); NEUT # 14.1 10*3/uL (2.3-7.9); PLATELET COUNT AUTOMATED 327 10*3/uL (130-400); RED BLOOD COUNT 3.96 10*6/uL (4.10-5.10); RED CELL DISTRI WIDTH 13.4 % (0-14.5); WHITE BLOOD COUNT 17.2 10*3/uL (4.8-10.8)
--- NOTE | 2019-10-11 05:51 | NUR ---
MEDICATED WITH PRN NORCO PER PATIENT REQUEST FOR CO CHRONIC BACK PAIN. WILL ASSESS EFFECTIVENESS. CALL LIGHTIN WITHIN REACH.
[2019-10-11 05:55] LABS: ALBUMIN 2.8 gm/dl (3.1-4.5); ALKALINE PHOSPHATASE 85 U/L (45-117); BUN 16 mg/dl (7-24); CHLORIDE 106 mmol/L (98-107); CREATININE 0.64 mg/dL (0.55-1.02); POTASSIUM 3.6 mmol/L (3.5-5.1); SGOT/AST 12 IU/L (3-35); SGPT/ALT 12 U/L (12-78); SODIUM 139 mmol/L (136-145); TOTAL PROTEIN 6.1 gm/dL (6.4-8.2)
--- NOTE | 2019-10-11 06:51 | NUR ---
NORCO EFFECTIVE PER PATIENT.
[2019-10-11 08:00] VITALS: BP 155/68
--- NOTE | 2019-10-11 08:15 | NUR ---
IN ROOM TO COMPLETE ASSESSMENT. PT STATES THAT SHE IS HAVING BACK PAIN, WHICH IS CHRONIC DUE TO BREAKING HER BACK. SHE IS ALSO COMPLAINING OF DIARRHEA WHICH HAS BEEN ONGOING FOR 2 WEEEKS. PT IS ON RA AND APPEARS TO BE IN NO DISTRESS. WILL CONTINUE TO MONITOR, CALL LIGHT WITHIN REACH
--- NOTE | 2019-10-11 09:33 | NUR ---
PRN MORPHINE IV GIVEN DUE TO PACK PAIN RATED 9/10. WILL CONTINUE TO MONITOR FOR EFFECTIVNESS
--- NOTE | 2019-10-11 10:00 | NUR ---
PT STATES SHE IS STILL HAVING PAIN. CALL LIGHT WITHIN REACH, WILL CONTINUE TO MONITOR
--- NOTE | 2019-10-11 10:30 | NUR ---
Plumbing Engineer in to see patient. No new needs or request at this time. She denies any home needs. When medically stable she will be discharged to home.
[2019-10-11 12:00] VITALS: BP 141/76
--- NOTE | 2019-10-11 13:56 | NUR ---
PRN MORPHINE IV GIVEN FOR BACK PAIN RATING 9/10. WILL MONITOR FOR EFECTIVENESS
--- NOTE | 2019-10-11 14:20 | NUR ---
PT STATES NORCO "SOMEWHAT" EFFECTIVE
[2019-10-11 16:00] VITALS: BP 129/86
--- NOTE | 2019-10-11 17:24 | NUR ---
IV started left wrist with #24 protective cath after 1 attempt. Site prepped with Chloroprep. Sterile dressing applied. Patient tolerated procedure well. NATASHA CYR
[2019-10-11 20:00] VITALS: BP 138/67
--- NOTE | 2019-10-11 20:31 | NUR ---
ASSESSMENT COMPLETE. PATIENT STILL CO DIARRHEA TODAY AND BACK PAIN RATED A 10/10. REQUESTINING SOMETHING FOR PAIN. MEDICATED WITH PRN MORPHINE. WILL ASSESS EFFECTIVENESS. RESPS EASY AND REGULAR. CALL LIGHT WITHIN REACH.
--- NOTE | 2019-10-11 21:31 | NUR ---
PER PATIENT MORPHINE EFFECTIVE.
[2019-10-12] VITALS: BP 116/66
--- NOTE | 2019-10-12 00:47 | NUR ---
24 HR chart check completed.
--- NOTE | 2019-10-12 01:09 | NUR ---
PATIENT REQUESTING MORPHINE FOR SEVERE BACK PAIN RATED A 10/10. MEDICATED WITH PRN MORPHINE PER ORDERS. WILL ASSESS EFFECTIVENESS. CALL LIGHT WITHIN REACH. SEE EMAR.
--- NOTE | 2019-10-12 02:09 | NUR ---
PATIENT SLEEPING. RESPS EASY AND REGULAR. NO SIGNS/SYMPTOMS OF DISTRESS NOTED. CALL LIGHT WITHIN REACH.
--- NOTE | 2019-10-12 04:47 | NUR ---
PATIENT REQUESTING SOMETHING FOR BACK PAIN. MEDICATED WITH PRN NORCO. WILL ASSESS EFFECTIVENESS. CALL LIGHT WITHIN REACH.
--- NOTE | 2019-10-12 05:47 | NUR ---
PER PATIENT NORCO EFFECTIVE.
[2019-10-12 07:48] LABS: BASO % 0.2 % (0.0-1.0); EOS % 0.2 % (1.0-4.0); HEMATOCRIT 40.4 % (37.0-47.0); LYMPH # 1.9 10*3/uL (1.3-4.4); MEAN CELL VOLUME 95.1 fl (81.0-99.0); MEAN CORPUSCULAR HGB 30.6 pg (27.0-31.0); MEAN CORPUSCULAR HGB CONC 32.2 g/dl (33.0-37.0); MEAN PLATELET VOLUME 10.1 fl (9.6-12.3); MONO # 0.6 10*3/uL (0.1-1.0); MONO % 4.2 % (3.0-9.0); NEUT # 10.4 10*3/uL (2.3-7.9); PLATELET COUNT AUTOMATED 303 10*3/uL (130-400); RED BLOOD COUNT 4.25 10*6/uL (4.10-5.10); RED CELL DISTRI WIDTH 13.6 % (0-14.5)
[2019-10-12 07:58] LABS: BUN 14 mg/dl (7-24); CHLORIDE 102 mmol/L (98-107); CREATININE 0.71 mg/dL (0.55-1.02); SODIUM 140 mmol/L (136-145)
--- NOTE | 2019-10-12 08:00 | NUR ---
0800 AM ASSESSMENT COMPLETE. PT C/O BACK PAIN, RATING 9/10 ON PAIN. MEDICATED WITH MORPHINE AT 0753. CALL LIGHT WITH IN REACH. WILL MONITOR.
--- NOTE | 2019-10-12 09:00 | NUR ---
MORPHINE HELPING, NOT FULLY EFFECTIVE PER PT. WILL MONITOR.
--- NOTE | 2019-10-12 09:57 | NUR ---
IMODIUM GIVEN FOR C/O DIARRHEA. LUIS GARCIA
--- NOTE | 2019-10-12 11:00 | NUR ---
NORCO GIVEN PER REQUEST FOR C/O BACK PAIN. RATES 9/10 ON PAIN SCALE, WILL MONITOR.
[2019-10-12] MEDS ORDERED: PREDNISONE10 MG PO (11:17)
[2019-10-12] MEDS ORDERED: LOPERAMIDE HCL2 MG PO (11:17)
[2019-10-12 12:00] VITALS: BP 120/66
--- NOTE | 2019-10-12 12:45 | NUR ---
REFUSED AEROSOL TREATMENT
--- NOTE | 2019-10-12 14:44 | NUR ---
MORPHINE GIVEN FOR C/O BACK PAIN. RATES 8/10 ON PI=AIN SCALE. WILL MONITOR.
[2019-10-12 16:00] VITALS: BP 134/57
[2019-10-12 16:19] VITALS: BP 120/66
--- NOTE | 2019-10-12 17:37 | NUR ---
[facility] Discharge instructions reviewed with patient/family. Patient receptive and verbalizes understanding. Follow-up care arranged. Written instructions given to patient/family. FROYLAN TRAVIS
== END 2019-10-12 17:37 | disposition home or self-care (01) | DRG 720 ==
LOC: ED 15:27 → EDHOLD 17:43 → 4E 17:43
PROVIDERS: Emergency Medicine; Internal Medicine; ADMIT Family Medicine
DX: A41.9 Sepsis, unspecified organism (principal); K52.9 Noninfective gastroenteritis and colitis, unspecified; I16.0 Hypertensive urgency; J43.9 Emphysema, unspecified; F41.1 Generalized anxiety disorder; I10 Essential (primary) hypertension; D64.9 Anemia, unspecified; E87.6 Hypokalemia; M54.9 Dorsalgia, unspecified; G89.29 Other chronic pain; F17.210 Nicotine dependence, cigarettes, uncomplicated; M81.0 Age-related osteoporosis without current pathological fracture; Z85.41 Personal history of malignant neoplasm of cervix uteri; Z90.710 Acquired absence of both cervix and uterus; Z98.42 Cataract extraction status, left eye; Z98.41 Cataract extraction status, right eye; Z82.49 Family history of ischemic heart disease and other diseases of the circulatory system; Z83.6 Family history of other diseases of the respiratory system; Z88.1 Allergy status to other antibiotic agents; Z88.8 Allergy status to other drugs, medicaments and biological substances; Z79.899 Other long term (current) drug therapy; Z71.6 Tobacco abuse counseling

== ENCOUNTER 2019-10-21 10:45 | Observation (INO) | payer OTHER ==
[~2019-10-21] VITALS: Ht 160 cm; Wt 56.4 kg
[~2019-10-21 10:45] MED LIST changes: +FLUOXETINE HCL40 MG PO; +LOPERAMIDE HCL2 MG PO; +PHARMASSURE FO0.4 MG PO
[2019-10-21 10:59] VITALS: BP 112/74
[2019-10-21 11:03] LABS: ABG BASE EXCESS 4.2 mmol/L (-2.0-2.0); ARTERIAL BLOOD GAS PH 7.322 (7.35-7.45)
[2019-10-21 11:08] LABS: MEAN CELL VOLUME 94.1 fl (81.0-99.0); MEAN CORPUSCULAR HGB 30.4 pg (27.0-31.0); MEAN CORPUSCULAR HGB CONC 32.4 g/dl (33.0-37.0); MEAN PLATELET VOLUME 9.6 fl (9.6-12.3); PLATELET COUNT AUTOMATED 437 10*3/uL (130-400); RED BLOOD COUNT 4.04 10*6/uL (4.10-5.10); RED CELL DISTRI WIDTH 14.4 % (0-14.5); WHITE BLOOD COUNT 30.2 10*3/uL (4.8-10.8)
[2019-10-21 11:18] LABS: ACT PARTIAL THROMBO TIME 27.6 SECONDS (20.0-32.1); INTERNATIONAL NORM RATIO 0.9 (2.0-3.5)
--- NOTE | 2019-10-21 11:21 | NUR ---
PT REFUSED [facility] BIPAP TX PT STATED SHE SEEN HER DAD WITH ONE AND SHE WAS NOT GOING TO HAVE THAT DONE TO HER PT WAS ADVISED BY [facility] OF NEED PT STILL REFUSED BIPAP
[2019-10-21 11:24] LABS: ALBUMIN 3.1 gm/dl (3.1-4.5); ALKALINE PHOSPHATASE 88 U/L (45-117); BUN 16 mg/dl (7-24); CHLORIDE 101 mmol/L (98-107); POTASSIUM 4.6 mmol/L (3.5-5.1); SGOT/AST 13 IU/L (3-35); SGPT/ALT 11 U/L (12-78); SODIUM 137 mmol/L (136-145)
[2019-10-21 11:25] LABS: TROPONIN I 0.038 ng/ml (<0.045)
[2019-10-21 11:47] LABS: TOTAL CELLS COUNTED 100 #CELLS
[2019-10-21 11:48] LABS: PLATELET SUFFICIENCY HIGH (NORMAL); STOMATOCYTE FEW
[2019-10-21 12:37] VITALS: BP 99/48
--- NOTE | 2019-10-21 12:40 | NUR ---
PT REPORTS NO WOUNDS OR OPEN SORES AT THIS TIME
[2019-10-21 12:58] LABS: ABG BASE EXCESS 4.5 mmol/L (-2.0-2.0); ARTERIAL BLOOD GAS PH 7.327 (7.35-7.45)
[2019-10-21 13:23] LABS: URINE AMPHETAMINES < 1000 (1000ng/ml); URINE BARBITURATES < 200 (200ng/ml); URINE BENZODIAZEPINES < 200 (200ng/ml); URINE CANNABINOIDS (THC) > 50 (50ng/ml); URINE COCAINE < 300 (300ng/ml); URINE METHADONE < 300 (300ng/ml); URINE OPIATES < 300 (300ng/ml); URINE PHENCYCLIDINE < 25 (25ng/ml)
[2019-10-21 13:26] LABS: BACTERIA TRACE; BILIRUBIN NEGATIVE (NEGATIVE); BLOOD NEGATIVE (NEGATIVE); CLARITY CLEAR (CLEAR); COLOR YELLOW (YELLOW); GLUCOSE NEGATIVE (NEGATIVE); KETONE NEGATIVE (NEGATIVE); LEUKO ESTERASE NEGATIVE (NEGATIVE); MUCOUS TRACE; NITRITE NEGATIVE (NEGATIVE); UROBILINOGEN 0.2 E.U./dl (0.2-1.0); WBC 0-2 wbc/hpf (0-5)
--- NOTE | 2019-10-21 13:40 | NUR ---
A 58, admitted to , under the services of PRINCESS Trevino DO with a diagnosis of COPD. Chief complaint is SOB THIS AM WHEN SHE WOKE UP. Patient arrived via stretcher from ER. Monitor applied. Initial assessment completed. Vital signs taken and recorded. PRINCESS TREVINO DO notified of admission to the unit. Orders received. See assessment for past medical history, medications and allergies. Patient and/or family oriented to unit. [facility]. REBEKAH GARNER
[2019-10-21] MEDS ORDERED: POTASSIUM CHLO10 MEQ PO (13:58)
[2019-10-21] MEDS ORDERED: TRAZODONE100 MG PO (14:04)
[2019-10-21] MEDS ORDERED: IRON325 M1 PO (14:04)
[2019-10-21] MEDS ORDERED: RIZATRIPTAN5 MG PO (14:05)
[2019-10-21] MEDS ORDERED: PROMETH-CODEIN 65 ML PO (14:06)
--- NOTE | 2019-10-21 14:19 | NUR ---
Harmony Rabago notified of troponin result of 0.061. States she will monitor. Pt currently denies chest pain.
--- NOTE | 2019-10-21 15:21 | NUR ---
[facility]G uncollected order in computer from 1047. This was sent in ER but order not cancelled. I cancelled order as it had been sent around that time from ER.
--- NOTE | 2019-10-21 17:43 | NUR ---
Lab called with troponin of 0.060. Attempted to call hospitalist with no answer. Will try again. Troponin was 0.061 prior draw so trending down.
--- NOTE | 2019-10-21 17:50 | NUR ---
Dr. Solorio notified of troponin result.
--- NOTE | 2019-10-21 19:42 | NUR ---
ATTEMPTED TO CALL DR WEAVER REGARDING PATIENT REQUESTING PAIN MEDICATIONS
--- NOTE | 2019-10-21 19:51 | NUR ---
DR MOROCHO AWARE OF PATIENT REQUESTING "MORPHINE OR PERCOCET"
[2019-10-21 20:00] VITALS: BP 127/50
--- NOTE | 2019-10-21 20:31 | NUR ---
PATIENT MEDICATED WITH ONE TIME NORCO FOR C/O BACK PAIN RATED 9/10 ON A 0/10 PAIN SCALE. WILL MONITOR
--- NOTE | 2019-10-21 21:05 | NUR ---
NORCO EFFECTIVE PER PATIENT
[2019-10-22] VITALS: BP 98/58
[2019-10-22 06:45] LABS: HEMATOCRIT 36.3 % (37.0-47.0); MEAN CELL VOLUME 94.8 fl (81.0-99.0); MEAN CORPUSCULAR HGB 30.3 pg (27.0-31.0); MEAN PLATELET VOLUME 10.1 fl (9.6-12.3); PLATELET COUNT AUTOMATED 389 10*3/uL (130-400); RED BLOOD COUNT 3.83 10*6/uL (4.10-5.10); RED CELL DISTRI WIDTH 14.2 % (0-14.5); WHITE BLOOD COUNT 17.8 10*3/uL (4.8-10.8)
[2019-10-22 06:53] LABS: ALBUMIN 2.7 gm/dl (3.1-4.5); ALKALINE PHOSPHATASE 80 U/L (45-117); BUN 19 mg/dl (7-24); CHLORIDE 104 mmol/L (98-107); CREATININE 0.72 mg/dL (0.55-1.02); POTASSIUM 4.4 mmol/L (3.5-5.1); SGOT/AST 16 IU/L (3-35); SGPT/ALT 16 U/L (12-78); SODIUM 137 mmol/L (136-145); TOTAL PROTEIN 6.7 gm/dL (6.4-8.2)
[2019-10-22 07:40] LABS: PLATELET SUFFICIENCY NORMAL (NORMAL); TOTAL CELLS COUNTED 100 #CELLS
--- NOTE | 2019-10-22 09:00 | NUR ---
Radiological Technologist in to talk to patient. Patient states lives at home with alone, daughter lives across the street. There are 18 steps in the home. Physician: dean maldonado [facility] Home health services: none Patient's level of ADLs: INDEPENDENT Patient has working utilities: all working DME: home oxygen at 2.5l/min, portable tanks from [facility] Follow-up physician's appointment after d/c: will be made by hospitalist nurse director upon discharge Does patient want to access PORTAL?: no Discharge plan discussed with patient, she states she lives at home alone, she is independent in adls and ambulation, she states sometimes she looses her balance and has a fall but has not gotten hurt, she states her daughter lives across the street and is available 24 hours to help her if needed. discussed with her a discharged plan including a short term shelter for rehab prior to returning home, patient declined, also discussed with her being admitted to the hospital frequently. discussed [facility] and educated her on the services they provide, she states she is aware of [facility] and the services they provide and declines any home needs, case management will follow [facility]
--- NOTE | 2019-10-22 10:00 | NUR ---
PHYSICAL THERAPY Physical Therapy evaluation completed on 4E with full evaluation to follow. Low complexity PT evaluation per chart review/evaluation, [id number]. Recommend physical therapy per plan of care and Home Health upon discharge. Thank you for this referral. Elif Do,PT,DPT
[2019-10-22] MEDS ORDERED: PREDNISONE10 MG PO (10:29)
[2019-10-22] MEDS ORDERED: DOXYCYCLINE MO100 M1 PO (10:29)
--- NOTE | 2019-10-22 11:15 | NUR ---
Discharge instructions reviewed with patient. Patient receptive and verbalizes understanding. Follow-up care arranged. Written instructions given to patient. REBEKAH GARNER
--- NOTE | 2019-10-22 11:30 | NUR ---
DISCHARGED VIA WHEELCHAIR.
--- NOTE | 2019-10-22 11:49 | NUR ---
Occupational Therapy evaluation completed on with full evaluation to follow. Recommend occupational therapy per plan of care and return home with home health upon discharge. Thank you for this referral. Jazz Segal OTR/L
== END 2019-10-22 11:30 | disposition home or self-care (01) ==
LOC: ED 10:45 → 4E 11:36 → EDHOLD 11:36 → 4E 11:36
PROVIDERS: Emergency Medicine; Registered Nurse; ADMIT Emergency Medicine
DX: J44.1 Chronic obstructive pulmonary disease with (acute) exacerbation (principal); E44.0 Moderate protein-calorie malnutrition; F32.9 Major depressive disorder, single episode, unspecified; G93.41 Metabolic encephalopathy; A41.9 Sepsis, unspecified organism; J96.11 Chronic respiratory failure with hypoxia; G89.29 Other chronic pain; I10 Essential (primary) hypertension; F41.1 Generalized anxiety disorder; E78.5 Hyperlipidemia, unspecified; R00.0 Tachycardia, unspecified; R79.89 Other specified abnormal findings of blood chemistry; J18.9 Pneumonia, unspecified organism; Z87.891 Personal history of nicotine dependence; Z99.81 Dependence on supplemental oxygen

== ENCOUNTER 2019-11-10 14:23 | Emergency (ER) | payer OTHER ==
[~2019-11-10] VITALS: Ht 165.1 cm; Wt 52.6 kg
[~2019-11-10 14:23] MED LIST changes: +IRON325 M1 PO; +POTASSIUM CHLO10 MEQ PO; +PROMETH-CODEIN 65 ML PO; +RIZATRIPTAN5 MG PO; +TRAZODONE100 MG PO
[2019-11-10 14:31] VITALS: BP 131/90
[2019-11-10 15:49] LABS: BASO # 0.1 10*3/uL (0.0-0.1); BASO % 0.7 % (0.0-1.0); EOS # 0.1 10*3/uL (0.0-0.4); EOS % 0.9 % (1.0-4.0); HEMATOCRIT 40.1 % (37.0-47.0); LYMPH # 2.6 10*3/uL (1.3-4.4); LYMPH % 30.3 % (27.0-41.0); MEAN CELL VOLUME 91.6 fl (81.0-99.0); MEAN CORPUSCULAR HGB 29.7 pg (27.0-31.0); MEAN CORPUSCULAR HGB CONC 32.4 g/dl (33.0-37.0); MEAN PLATELET VOLUME 9.4 fl (9.6-12.3); MONO # 0.5 10*3/uL (0.1-1.0); MONO % 6.1 % (3.0-9.0); NEUT # 5.4 10*3/uL (2.3-7.9); NEUT % 61.8 % (47.0-73.0); PLATELET COUNT AUTOMATED 377 10*3/uL (130-400); RED BLOOD COUNT 4.38 10*6/uL (4.10-5.10); RED CELL DISTRI WIDTH 13.9 % (0-14.5); WHITE BLOOD COUNT 8.7 10*3/uL (4.8-10.8)
[2019-11-10 16:09] LABS: ALBUMIN 3.6 gm/dl (3.1-4.5); ALKALINE PHOSPHATASE 104 U/L (45-117); BUN 10 mg/dl (7-24); CHLORIDE 103 mmol/L (98-107); CREATININE 0.87 mg/dL (0.55-1.02); POTASSIUM 4.1 mmol/L (3.5-5.1); SGOT/AST 16 IU/L (3-35); SGPT/ALT 15 U/L (12-78); SODIUM 135 mmol/L (136-145)
[2019-11-10 16:10] LABS: ACETAMINOPHEN (TYLENOL) < 5.0 ug/ml (10-30); ETHYL ALCOHOL < 3.0 mg/dl (<3)
[2019-11-10 16:47] LABS: CLARITY CLEAR (CLEAR); COLOR YELLOW (YELLOW)
[2019-11-10 16:51] LABS: BILIRUBIN NEGATIVE (NEGATIVE); BLOOD NEGATIVE (NEGATIVE); GLUCOSE NEGATIVE (NEGATIVE); KETONE NEGATIVE (NEGATIVE); SPECIFIC GRAVITY 1.005 (1.005-1.030); UROBILINOGEN 0.2 E.U./dl (0.2-1.0)
[2019-11-10 16:52] LABS: LEUKO ESTERASE NEGATIVE (NEGATIVE); NITRITE NEGATIVE (NEGATIVE)
[2019-11-10 16:55] LABS: URINE AMPHETAMINES < 1000 (1000ng/ml); URINE BARBITURATES < 200 (200ng/ml); URINE BENZODIAZEPINES < 200 (200ng/ml); URINE CANNABINOIDS (THC) > 50 (50ng/ml); URINE COCAINE < 300 (300ng/ml); URINE METHADONE < 300 (300ng/ml); URINE OPIATES < 300 (300ng/ml)
[2019-11-10 16:56] LABS: URINE PHENCYCLIDINE < 25 (25ng/ml)
[2019-11-10 17:00] LABS: BACTERIA TRACE
[2019-11-10] MEDS ORDERED: VISTARIL25 M2 PO (18:50)
== END 2019-11-10 19:16 | disposition home or self-care (01) ==
LOC: ED 14:23
PROVIDERS: Emergency Medicine
DX: F33.1 Major depressive disorder, recurrent, moderate (principal); G89.29 Other chronic pain; J44.9 Chronic obstructive pulmonary disease, unspecified; E78.5 Hyperlipidemia, unspecified; I10 Essential (primary) hypertension; F17.200 Nicotine dependence, unspecified, uncomplicated; Z90.49 Acquired absence of other specified parts of digestive tract; Z98.890 Other specified postprocedural states; Z79.899 Other long term (current) drug therapy; Z88.1 Allergy status to other antibiotic agents; Z88.6 Allergy status to analgesic agent; Z79.01 Long term (current) use of anticoagulants

== ENCOUNTER 2019-11-13 14:04 | Emergency (ER) | payer OTHER ==
[~2019-11-13] VITALS: Ht 160 cm; Wt 52.2 kg
[~2019-11-13 14:04] MED LIST changes: +VISTARIL25 M2 PO
[2019-11-13 14:18] VITALS: BP 164/88
[2019-11-13 14:37] LABS: BASO # 0.1 10*3/uL (0.0-0.1); BASO % 0.6 % (0.0-1.0); EOS # 0.1 10*3/uL (0.0-0.4); EOS % 0.6 % (1.0-4.0); HEMATOCRIT 41.1 % (37.0-47.0); LYMPH # 3.4 10*3/uL (1.3-4.4); LYMPH % 31.2 % (27.0-41.0); MEAN CORPUSCULAR HGB 29.9 pg (27.0-31.0); MEAN CORPUSCULAR HGB CONC 33.6 g/dl (33.0-37.0); MEAN PLATELET VOLUME 9.6 fl (9.6-12.3); MONO # 0.7 10*3/uL (0.1-1.0); MONO % 6.4 % (3.0-9.0); NEUT # 6.6 10*3/uL (2.3-7.9); PLATELET COUNT AUTOMATED 422 10*3/uL (130-400); RED BLOOD COUNT 4.62 10*6/uL (4.10-5.10); RED CELL DISTRI WIDTH 13.6 % (0-14.5); WHITE BLOOD COUNT 10.9 10*3/uL (4.8-10.8)
[2019-11-13 14:51] LABS: ALBUMIN 3.8 gm/dl (3.1-4.5); ALKALINE PHOSPHATASE 119 U/L (45-117); BUN 8 mg/dl (7-24); CHLORIDE 103 mmol/L (98-107); CREATININE 0.83 mg/dL (0.55-1.02); POTASSIUM 3.9 mmol/L (3.5-5.1); SGOT/AST 11 IU/L (3-35); SGPT/ALT 15 U/L (12-78); SODIUM 135 mmol/L (136-145); TOTAL PROTEIN 7.6 gm/dL (6.4-8.2)
[2019-11-13 14:52] LABS: ACETAMINOPHEN (TYLENOL) < 5.0 ug/ml (10-30); ETHYL ALCOHOL < 3.0 mg/dl (<3)
[2019-11-13 14:59] LABS: THYROID STIM HORMONE (HS) 0.507 uIU/ml (0.358-4.75)
[2019-11-13 15:46] LABS: BILIRUBIN NEGATIVE (NEGATIVE); BLOOD NEGATIVE (NEGATIVE); CLARITY CLEAR (CLEAR); COLOR YELLOW (YELLOW); GLUCOSE NEGATIVE (NEGATIVE); KETONE NEGATIVE (NEGATIVE); LEUKO ESTERASE NEGATIVE (NEGATIVE); NITRITE NEGATIVE (NEGATIVE); UROBILINOGEN 0.2 E.U./dl (0.2-1.0)
[2019-11-13 15:48] LABS: URINE AMPHETAMINES < 1000 (1000ng/ml); URINE BARBITURATES < 200 (200ng/ml); URINE BENZODIAZEPINES < 200 (200ng/ml); URINE CANNABINOIDS (THC) > 50 (50ng/ml); URINE COCAINE < 300 (300ng/ml); URINE METHADONE < 300 (300ng/ml); URINE OPIATES < 300 (300ng/ml)
[2019-11-13 15:52] LABS: BACTERIA TRACE
[2019-11-13 15:54] LABS: URINE PHENCYCLIDINE < 25 (25ng/ml)
== END 2019-11-13 19:38 | disposition home or self-care (01) ==
LOC: ED 14:04
PROVIDERS: Physician Assistant
DX: F41.9 Anxiety disorder, unspecified (principal); F32.9 Major depressive disorder, single episode, unspecified; J44.9 Chronic obstructive pulmonary disease, unspecified; I10 Essential (primary) hypertension; E78.5 Hyperlipidemia, unspecified; F17.200 Nicotine dependence, unspecified, uncomplicated; Z88.8 Allergy status to other drugs, medicaments and biological substances; Z79.899 Other long term (current) drug therapy; Z79.2 Long term (current) use of antibiotics; Z90.49 Acquired absence of other specified parts of digestive tract

== ENCOUNTER 2019-11-26 13:55 | Emergency (ER) | payer OTHER ==
[2019-11-26 14:08] VITALS: BP 150/88
[2019-11-26 14:55] LABS: BASO # 0.1 10*3/uL (0.0-0.1); BASO % 0.6 % (0.0-1.0); EOS # 0.1 10*3/uL (0.0-0.4); EOS % 0.8 % (1.0-4.0); LYMPH # 2.8 10*3/uL (1.3-4.4); MEAN CORPUSCULAR HGB 29.8 pg (27.0-31.0); MEAN CORPUSCULAR HGB CONC 32.4 g/dl (33.0-37.0); MEAN PLATELET VOLUME 9.2 fl (9.6-12.3); MONO # 0.8 10*3/uL (0.1-1.0); MONO % 7.2 % (3.0-9.0); NEUT % 65.1 % (47.0-73.0); PLATELET COUNT AUTOMATED 464 10*3/uL (130-400); RED BLOOD COUNT 4.13 10*6/uL (4.10-5.10); WHITE BLOOD COUNT 10.8 10*3/uL (4.8-10.8)
[2019-11-26 15:05] LABS: ACT PARTIAL THROMBO TIME 25.9 SECONDS (20.0-32.1); INTERNATIONAL NORM RATIO 0.9 (2.0-3.5)
[2019-11-26 15:14] LABS: ALBUMIN 3.6 gm/dl (3.1-4.5); ALKALINE PHOSPHATASE 123 U/L (45-117); BUN 9 mg/dl (7-24); CHLORIDE 100 mmol/L (98-107); CREATININE 0.78 mg/dL (0.55-1.02); POTASSIUM 4.7 mmol/L (3.5-5.1); SGOT/AST 10 IU/L (3-35); SGPT/ALT 14 U/L (12-78); SODIUM 133 mmol/L (136-145); TOTAL PROTEIN 7.5 gm/dL (6.4-8.2)
[2019-11-26 15:15] LABS: TROPONIN I < 0.015 ng/ml (<0.045)
[2019-11-26] MEDS ORDERED: VIBRAMYCIN100 MG PO ×2 (17:00)
[2019-11-26] MEDS ORDERED: PREDNISONE20 M1 PO ×2 (17:00)
== END 2019-11-26 17:30 | disposition home or self-care (01) ==
LOC: ED 13:55
PROVIDERS: Emergency Medicine
DX: J44.9 Chronic obstructive pulmonary disease, unspecified (principal); M54.9 Dorsalgia, unspecified; F17.200 Nicotine dependence, unspecified, uncomplicated; Z88.1 Allergy status to other antibiotic agents; Z88.6 Allergy status to analgesic agent; Z79.899 Other long term (current) drug therapy

== ENCOUNTER 2019-11-28 07:25 | Inpatient (IN) | payer OTHER ==
[~2019-11-28] VITALS: Ht 160 cm; Wt 52.3 kg
[~2019-11-28 07:25] MED LIST changes: +PREDNISONE20 M1 PO
[2019-11-28 07:32] VITALS: BP 130/93
[2019-11-28 08:17] LABS: BASO % 0.3 % (0.0-1.0); HEMATOCRIT 39.2 % (37.0-47.0); LYMPH # 3.3 10*3/uL (1.3-4.4); LYMPH % 20.9 % (27.0-41.0); MEAN CELL VOLUME 91.6 fl (81.0-99.0); MEAN CORPUSCULAR HGB 29.7 pg (27.0-31.0); MEAN CORPUSCULAR HGB CONC 32.4 g/dl (33.0-37.0); MEAN PLATELET VOLUME 9.2 fl (9.6-12.3); MONO # 1.1 10*3/uL (0.1-1.0); MONO % 6.8 % (3.0-9.0); NEUT # 11.2 10*3/uL (2.3-7.9); NEUT % 71.7 % (47.0-73.0); PLATELET COUNT AUTOMATED 484 10*3/uL (130-400); RED BLOOD COUNT 4.28 10*6/uL (4.10-5.10); RED CELL DISTRI WIDTH 14.2 % (0-14.5); WHITE BLOOD COUNT 15.6 10*3/uL (4.8-10.8)
--- NOTE | 2019-11-28 08:33 | NUR ---
PROVIDED PT WITH ICE CHIPS. NO DISTRESS NOTED. PT ON PHONE.
[2019-11-28 08:34] LABS: ALKALINE PHOSPHATASE 116 U/L (45-117); BUN 13 mg/dl (7-24); CHLORIDE 97 mmol/L (98-107); CREATININE 0.91 mg/dL (0.55-1.02); POTASSIUM 4.3 mmol/L (3.5-5.1); SGOT/AST 13 IU/L (3-35); SGPT/ALT 14 U/L (12-78); SODIUM 132 mmol/L (136-145); TOTAL PROTEIN 8.4 gm/dL (6.4-8.2)
--- NOTE | 2019-11-28 09:00 | NUR ---
PT IN BED WATCHING TV. MORE COMFORTABLE. NO COMPLAINTS AT THIS TIME.
[2019-11-28 10:45] VITALS: BP 152/93
[2019-11-28 12:00] VITALS: BP 156/90
[2019-11-28] MEDS ORDERED: REMERON30 M1 PO (12:40)
[2019-11-28] MEDS ORDERED: PROZAC40 M1 PO (12:41)
--- NOTE | 2019-11-28 13:02 | NUR ---
PT MEDICATED WITH NORCO 5/325 FOR C/O 9/10 PAIN.
[2019-11-28 16:00] VITALS: BP 150/79
[2019-11-28 20:00] VITALS: BP 149/85
--- NOTE | 2019-11-28 21:38 | NUR ---
PT MEDICATED WITH PRN NORCO FOR C/O BACK PAIN RATED A 9/10. WILL MONITOR FOR EFFECTIVENESS.
[2019-11-29] VITALS: BP 145/78
--- NOTE | 2019-11-29 05:11 | NUR ---
PT MEDICATED WITH PRN NORCO FOR C/O PAIN RATED A 7/10. WILL MONITOR FOR EFFECTIVENESS.
[2019-11-29 06:13] LABS: BASO % 0.1 % (0.0-1.0); HEMATOCRIT 36.8 % (37.0-47.0); LYMPH # 1.2 10*3/uL (1.3-4.4); LYMPH % 7.7 % (27.0-41.0); MEAN CELL VOLUME 91.3 fl (81.0-99.0); MEAN CORPUSCULAR HGB CONC 31.8 g/dl (33.0-37.0); MEAN PLATELET VOLUME 9.7 fl (9.6-12.3); MONO # 0.7 10*3/uL (0.1-1.0); MONO % 4.3 % (3.0-9.0); NEUT # 13.5 10*3/uL (2.3-7.9); NEUT % 87.5 % (47.0-73.0); PLATELET COUNT AUTOMATED 461 10*3/uL (130-400); RED BLOOD COUNT 4.03 10*6/uL (4.10-5.10); WHITE BLOOD COUNT 15.4 10*3/uL (4.8-10.8)
[2019-11-29 06:25] LABS: BUN 16 mg/dl (7-24); CHLORIDE 104 mmol/L (98-107); POTASSIUM 4.7 mmol/L (3.5-5.1); SODIUM 136 mmol/L (136-145)
[2019-11-29 06:28] LABS: ALKALINE PHOSPHATASE 109 U/L (45-117); SGOT/AST 7 IU/L (3-35); SGPT/ALT 13 U/L (12-78); TOTAL PROTEIN 6.6 gm/dL (6.4-8.2)
[2019-11-29 08:00] VITALS: BP 159/89
--- NOTE | 2019-11-29 08:58 | NUR ---
PATIENT REPORTS OF PAIN IN BACK, RIBS BILATERALLY. RATES IT A 9/10. ADMINISTERED PO PRN NORCO.
--- NOTE | 2019-11-29 09:00 | NUR ---
Time Buyer in to talk to patient. Patient states lives at home with alone. There are 18 steps in the home. Physician: dean maldonado [facility] Home health services: none Patient's level of ADLs: INDEPENDENT Patient has working utilities: all working DME: cane, home oxygen at 2.5l/min, portable tanks from [facility] [place] Follow-up physician's appointment after d/c: will be made by hospitalist nurse director upon discharge Does patient want to access PORTAL?: no Discharge plan discussed with patient, she lives at home alone, her daughter lives across the street and is available 24 hours a day, she states she is independent in adls and recently received a cane for ambulation, she has home oxygen and portable tanks, she stated she would return home when discharged, discussed with her [facility] and educated her on the services they provide, she stated she was familiar with home health and didn't feel she needed any home services at this time, case management will follow. ISAC EDGAR
--- NOTE | 2019-11-29 09:50 | NUR ---
PRN PO NORCO SOMEWHAT EFFECTIVE, PER PATIENT.
--- NOTE | 2019-11-29 11:23 | NUR ---
PATIENT WITH COMPLAINTS OF PAIN, ADMINISTERED PO PRN PERCOCET FOR PAIN.
[2019-11-29 12:00] VITALS: BP 149/80
--- NOTE | 2019-11-29 12:20 | NUR ---
PO PRN PERCOCET SOMEWHAT EFFECTIVE, PATIENT NOW WITH COMPLAINTS OF NAUSEA
--- NOTE | 2019-11-29 13:20 | NUR ---
ZOFRAN EFFECTIVE PER PATIENT
[2019-11-29 16:00] VITALS: BP 124/77
--- NOTE | 2019-11-29 18:46 | NUR ---
PATIENT REPORTS PAIN IN BACK RATING IT A 9/10 ADMINISTERED PO PRN PERCOCET AT THIS TIME
[2019-11-29 20:00] VITALS: BP 160/80
[2019-11-30] VITALS: BP 165/84
--- NOTE | 2019-11-30 07:55 | NUR ---
PERCOCET ADMINISTERED FOR PT C/O BACK/SIDE PAIN RATED A 9/10 D/T CONSISTENT COUGHING. WILL CONTINUE TO MONITOR AND REASSESS.
[2019-11-30 08:00] VITALS: BP 147/85
--- NOTE | 2019-11-30 08:50 | NUR ---
PT STATES PERCOCET WASN'T EFFECTIVE IN RELIEVING ALL OF HER PAIN. WILL CONTINUE TO MONITOR.
--- NOTE | 2019-11-30 09:00 | NUR ---
case management visits withpatient, she will return home when medically stable, case management will send referral to [facility] to see patient at home, case management will follow
[2019-11-30 12:00] VITALS: BP 152/84
--- NOTE | 2019-11-30 12:26 | NUR ---
Nutritional Support Services Note: Pt evaluated for malnutrition. Ht.5'3 Wt.115#. IBW 105-125. September 2019 weight was recorded as 119#. She has had a small decrease. She is eating 50-100% of meals. She receives a regular diet as ordered with Ensure po TID with meals. See no signs of malnutrition at this time. Will continue to follow. Michaelle Ventura Rdn Ld
--- NOTE | 2019-11-30 12:45 | NUR ---
SPOKE WITH JER STEELE NP REGARDING MULTIPLE IV ATTEMPTS AND INABILITY TO KEEP A STABLE LINE. STATES THAT A MIDLINE CAN BE ORDERED AT THIS TIME.
--- NOTE | 2019-11-30 13:45 | NUR ---
PHYSICAL THERAPY Physical Therapy evaluation completed on 4th floor with full evaluation to follow. Recommend physical therapy per plan of care and home w HH and family support upon discharge. Thank you for this referral. Caleb Felton SPT Juju Mccarty PT
--- NOTE | 2019-11-30 13:51 | NUR ---
Occupational Therapy evaluation completed on four with full evaluation to follow. Recommend home with HH upon discharge. Patient to be discharged from OT orders at this time secondary to patient being I with ADLs and transfers with good adherence to safety throughout. Patient agreeable to OT discharge stating she had no further needs. Defer to PT for further mobility and endurance training. Thank you for this referral. Olimpia Franklin, OTR/L
--- NOTE | 2019-11-30 13:54 | NUR ---
case management faxed patient's information to [facility] to see patient when discharged
--- NOTE | 2019-11-30 14:00 | NUR ---
MIDLINE PLACED TO RIGHT UPPER ARM.
--- NOTE | 2019-11-30 14:05 | NUR ---
PERCOCET ADMINISTERED FOR PT C/O 9/10 BACK AND SIDE PAIN. WILL CONTINUE TO MONITOR AND REASSESS.
--- NOTE | 2019-11-30 15:00 | NUR ---
PT SLEEPING AT THIS TIME. NO SIGNS OF DISCOMFORT OR DISTRESS.
[2019-11-30 16:00] VITALS: BP 152/82
[2019-11-30 20:00] VITALS: BP 177/90
--- NOTE | 2019-11-30 20:37 | NUR ---
PATIENT C/O BACK PAIN RATES 01/05. MEDICATED WITH PRN PERCOCET AT THIS TIME. WILL CHECK EFFECTIVENESS.
--- NOTE | 2019-11-30 21:30 | NUR ---
PATIENT STATES PERCOCET HELPS A LITTLE. WILL CONTINUE TO MONITOR.
--- NOTE | 2019-11-30 22:55 | NUR ---
PATIENT CORRECTION WORKER LIGHT, REQUESTING SOMETHING FOR PAIN. NOTIFIED DR. FLORES. ONE TIME ORDER OF TORADOL ORDERED AND LIDOCAINE.
--- NOTE | 2019-11-30 23:04 | NUR ---
PATIENT MEDICATED WITH TORADOL AND LIDOCAINE PUT ON PATIENTS BACK AT THIS TIME. PATIENT RATING BACK PAIN. 12/05.
[2019-12-01] VITALS (8 sets, daily range): BP systolic 155–180; BP diastolic 80–100
--- NOTE | 2019-12-01 00:04 | NUR ---
PATIENT SLEEPING. NO SIGNS OF DISTRESS. RESPIRATIONS EASY, NON LABORED. TORADOL EFFECTIVE. WILL CONTINUE TO MONITOR.
--- NOTE | 2019-12-01 00:39 | NUR ---
PATIENT REQUESTING PERCOCET. RATES PAIN 9/10, MEDICATED WITH PERCOCET AT THIS TIME. WILL CHECK EFFECTIVENESS.
--- NOTE | 2019-12-01 04:08 | NUR ---
PATIENT SLEEPING, NO SIGNS OF DISTRESS. RESPIRATIONS EASY, NON LABORED. CALL LIGHT WITHIN REACH. WILL CONTINUE TO MONITOR
--- NOTE | 2019-12-01 08:19 | NUR ---
LIDOCAINE CREAM APPLIED FOR PT C/O BACK PAIN. PERCOCET DUE AT 0930. PT AWARE. WILL MONITOR.
--- NOTE | 2019-12-01 08:58 | NUR ---
MORPHINE ADMINISTERED FOR PT C/O 01/05 BACK PAIN THAT WORSENS WITH MOVEMENT. WILL CONTINUE TO MONITOR AND REASSESS. NO OTHER COMPLAINTS AT THIS TIME.
--- NOTE | 2019-12-01 09:00 | NUR ---
case management visits with patient, she will return home when medically stable, patient will have [facility] visit her at home, case management will follow
--- NOTE | 2019-12-01 09:51 | NUR ---
PT STATES PAIN HAS DECREASED TO A 7/10 AFTER MORPHINE ADMINISTRATION. PT APPEARS COMFORTABLE, ON TABLET IN BED. WILL MONITOR.
--- NOTE | 2019-12-01 11:01 | NUR ---
SPOKE WITH JER STEELE NP, STATES TO REITERATE TO PATIENT THAT SHE WILL NEED TO WEAR HER TLSO BRACE WHEN RETURNING HOME. PT MADE AWARE, AND RECEPTIVE. STATES SHE WILL WEAR IT ONCE SHE IS D/C HOME.
--- NOTE | 2019-12-01 11:07 | NUR ---
PERCOCET ADMINISTERED FOR PT C/O 12/05 BACK PAIN. WILL MONITOR AND REASSESS.
--- NOTE | 2019-12-01 12:00 | NUR ---
PT STATES PERCOCET WASN'T EFFECTIVE. EDUCATED THAT MORPHINE IS DUE IN AN HOUR. WILL CONTINUE TO MONITOR.
--- NOTE | 2019-12-01 13:07 | NUR ---
MORPHINE ADMINISTERED FOR PT C/O CONTINUED PAIN IN HER BACK. WILL MONITOR AND REASSESS.
--- NOTE | 2019-12-01 13:19 | NUR ---
JER STEELE NP, NOTIFIED OF MANUAL BP READING 170/90. AWAITING ORDERS.
--- NOTE | 2019-12-01 13:30 | NUR ---
PHYSICAL THERAPY Patient was resting supine in bed when approached for therapy and stated she was feeling a bit anxious. Per recent nursing note, patient presenting with high BP and awaiting new orders from physician. Will hold therapy pending physician update and continue per POC as appropriate. Cornelio Gil, CLIENT ADVOCATE
--- NOTE | 2019-12-01 14:04 | NUR ---
ONE TIME DOSE OF XANAX ADMINISTERED PER SHELL STEELE'S, ORDER.
--- NOTE | 2019-12-01 14:07 | NUR ---
PT RELAXING IN BED WITH NO OVERT S/S OF DISTRESS. WILL CONTINUE TO MONITOR.
--- NOTE | 2019-12-01 15:20 | NUR ---
PERCOCET ADMINISTERED FOR PT C/O CONTINUED BACK PAIN RATED A 9/10. WILL MONITOR AND REASSESS.
--- NOTE | 2019-12-01 15:27 | NUR ---
JER STEELE NP, NOTIFIED OF MANUAL BP READING 180/100. AWAITING ORDERS.
--- NOTE | 2019-12-01 16:12 | NUR ---
PT STATES HER BACK "STILL HURTS BAD." AND THAT IT REMAINS A 9/10 ON THE PAIN SCALE. MORPHINE NOT DUE UNTIL 0. PT AWARE, STATES THAT PERCOCET "DOESN'T HELP LIKE THE MORPHINE DOES".
--- NOTE | 2019-12-01 18:08 | NUR ---
MORPHINE ADMINISTERED FOR PT C/O BACK PAIN RATEDA 9/10. WILL MONITOR AND REASSESS.
--- NOTE | 2019-12-01 18:41 | NUR ---
PT ASLEEP AT THIS TIME. NO S/S OF DISTRESS NOTED.
--- NOTE | 2019-12-01 21:25 | NUR ---
PATIENT REQUESTING SOMETHING FOR BACK PAIN. MEDICATED WITH PERCOCET AT THIS TIME. RATES PAIN 02/04. WILL CHECK EFFECTIVENESS.
--- NOTE | 2019-12-01 23:18 | NUR ---
PATIENT STATES PERCOCET WAS NOT EFFECTIVE AND HER BACK IS STILL HURTING. MEDICATED WITH HER LAST DOSE OF IV MORPHINE AT THIS TIME. WILL CHECK EFFECTIVENESS.
[2019-12-02] VITALS: BP 127/70
--- NOTE | 2019-12-02 00:18 | NUR ---
PATIENT SLEEPING, NO SIGNS OF DISTRESS. RESPIRATIONS EASY, NON LABORED. MORPHINE EFFECTIVE. WILL CONTINUE TO MONITOR.
--- NOTE | 2019-12-02 04:49 | NUR ---
PATIENT REQUESTING SOMETHING FOR PAIN. MEDICATED AT THIS TIME WITH PERCOCET. RATES PAIN 10/10. WILL CHECK EFFECTIVENESS.
[2019-12-02 07:09] LABS: BASO % 0.2 % (0.0-1.0); LYMPH # 1.4 10*3/uL (1.3-4.4); LYMPH % 6.7 % (27.0-41.0); MEAN CELL VOLUME 92.4 fl (81.0-99.0); MEAN CORPUSCULAR HGB 29.1 pg (27.0-31.0); MEAN CORPUSCULAR HGB CONC 31.5 g/dl (33.0-37.0); MEAN PLATELET VOLUME 10.8 fl (9.6-12.3); MONO # 0.9 10*3/uL (0.1-1.0); MONO % 4.5 % (3.0-9.0); NEUT % 87.4 % (47.0-73.0); PLATELET COUNT AUTOMATED 349 10*3/uL (130-400); RED BLOOD COUNT 4.22 10*6/uL (4.10-5.10); WHITE BLOOD COUNT 20.6 10*3/uL (4.8-10.8)
--- NOTE | 2019-12-02 07:30 | NUR ---
PATIENT RESTING IN BED. NO COMPLAINTS BESIDES HER BACK PAIN THAT SHE STATES IN CHRONIC. RESPS EASY AND REGULAR. ASSESSMENT COMPLETE. CALL LIGHT WITHIN REACH.
[2019-12-02 07:39] LABS: ALBUMIN 2.6 gm/dl (3.1-4.5); BUN 22 mg/dl (7-24); CHLORIDE 104 mmol/L (98-107); POTASSIUM 3.8 mmol/L (3.5-5.1); SODIUM 133 mmol/L (136-145)
[2019-12-02 07:44] LABS: ALKALINE PHOSPHATASE 99 U/L (45-117); CREATININE 0.66 mg/dL (0.55-1.02); SGOT/AST 19 IU/L (3-35); SGPT/ALT 41 U/L (12-78); TOTAL PROTEIN 6.5 gm/dL (6.4-8.2)
[2019-12-02 08:00] VITALS: BP 172/100
--- NOTE | 2019-12-02 10:08 | NUR ---
PHYSICAL THERAPY PT SUPINE IN BED UPON ARRIVAL THIS MORNING. PT IDENTIFIED BY NAME AND . PT AGREED TO ALL PHYSICAL THERAPY TREATMENT THIS VISIT. PT PERFORMED SUPINE TO SIT EOB WITH LOG ROLL AND SBA. PT PERFORMED STS TO AND FROM EOB WITH USE OF BUE FOR ASSITANCE. PT GAIT TRAINED 15FT X2 WITH NO AD AND SBA. PT PERFORMED STS TO AND FROM TOILER WITH USE OF HAND RAIL AND SBA. PTS O2 LEVEL DROPPED TO 88% SPOR AND PULSE 115BPM. WITH VC'S FOR PURSE LIP BREATHING PT WAS ABLE TO INCREASE O2 LEVEL TO 93% SPO2 IN 1.5MINS. PT GAIT TRAINED 30FT X1 WITH VC'S FOR BREATHING TECHNIQUES AND PTS O2 LEVEL REMAINED AT 93%SPO2. PT PERFORMES SIT TO SUPINE WITH VC'S FOR SAFETY AND PRECAUTIONS. PT VERBALIZED PRECAUTIONS. PT SUPINE IN BED WITH CALL LIGHT IN HAND AT END OF SESSION PT HAD NO REPORT OF OTHER NEEDS AT THIS TIME. PT SEEN 1:1 FOR 15MIN. JEF HUMPHREY PTA.
--- NOTE | 2019-12-02 10:27 | NUR ---
PATIENT MEDICATED WITH PRN PERCOCET FOR CO RIB PAIN RATED A 9/10. WILL ASSESS EFFECTIVENESS.
--- NOTE | 2019-12-02 11:27 | NUR ---
PER PATIENT MEDICATION NOT VERY EFFECTIVE.
[2019-12-02 12:00] VITALS: BP 144/92
--- NOTE | 2019-12-02 14:42 | NUR ---
MEDICATED WITH PRN PERCOCERT PER ORDER FOR CO BACK PAIN RATED A 9/10. WILL ASSESS EFFECTIVENESS. CALL LIGHT WITHIN REACH.
--- NOTE | 2019-12-02 15:42 | NUR ---
PER PATIENT PAIN MED ONLY SOMEWHAT EFFECTIVE,
[2019-12-02 16:00] VITALS: BP 149/88
[2019-12-02 20:00] VITALS: BP 181/96
[2019-12-03] VITALS: BP 150/73
[2019-12-03 06:00] LABS: BUN 23 mg/dl (7-24); CHLORIDE 99 mmol/L (98-107); CREATININE 0.74 mg/dL (0.55-1.02); POTASSIUM 3.5 mmol/L (3.5-5.1); SODIUM 136 mmol/L (136-145)
[2019-12-03 06:04] LABS: HEMATOCRIT 37.7 % (37.0-47.0); MEAN CELL VOLUME 92.4 fl (81.0-99.0); MEAN CORPUSCULAR HGB 30.1 pg (27.0-31.0); MEAN CORPUSCULAR HGB CONC 32.6 g/dl (33.0-37.0); MEAN PLATELET VOLUME 9.5 fl (9.6-12.3); PLATELET COUNT AUTOMATED 445 10*3/uL (130-400); RED BLOOD COUNT 4.08 10*6/uL (4.10-5.10); RED CELL DISTRI WIDTH 13.9 % (0-14.5); WHITE BLOOD COUNT 18.8 10*3/uL (4.8-10.8)
[2019-12-03 07:23] LABS: TOTAL CELLS COUNTED 100 #CELLS
[2019-12-03 07:24] LABS: PLATELET SUFFICIENCY NORMAL (NORMAL)
[2019-12-03 08:00] VITALS: BP 177/94
--- NOTE | 2019-12-03 08:32 | NUR ---
PHYSICAL THERAPY PT SIDELYING IN BED UPON ARRIVAL. PT AGREED TO ALL PHYSICAL THERAPY TREATMENT THIS VISIT. PT IDENTIFIED BY NAME AND . PT REPORTED 10/10 PAIN IN BILATER RIBS. PT PERFORMED SIDE LYING TO SIT (I) WITH VC'S FOR PRECAUTIONS. PT PERFORMED THE FOLLOWING SEATED EXERCISES 3X10 WITH VC'S AND DEMO FOR EACH EXCERCISES. EACH EXERCISES PERFORMED TO INCREASE LE STRENGTHING, TO INCREASE MOBILITY, STABLITY AND ENDUANCE. VC'S FOR BREATHING GIVEN THROUGHOUT SESSION. LAQ, MARCH, TOE RAISE, HEEL RAISE, GLUTE SET, QUAD SET, HIP ADDUCTION AND HIP ABDUCTION WITH MINIMAL RESISTANCE FOR THIS FIELD ADVISOR. PT SITTING EOB WITH STUDENT NURSE AT END OF SESSION. PT HAD NO OTHER NEEDS REPORTED AT THIS TIME. PT SEEN 1:1 FOR 15MIN. JEF HUMPHREY FIELD ADVISOR
--- NOTE | 2019-12-03 09:00 | NUR ---
case management visits with patient, she will be discharged to home today with [facility], case management will notify [facility] when patient is discharged
[2019-12-03] MEDS ORDERED: OMNICEF300 MG PO (09:25)
[2019-12-03] MEDS ORDERED: PREDNISONE10 MG PO (09:25)
[2019-12-03] MEDS ORDERED: ZITHROMAX500 MG PO (09:25)
[2019-12-03] MEDS ORDERED: PERCOCET 7.5 MG-325 PO (09:32)
[2019-12-03] MEDS ORDERED: LISINOPRIL20 MG PO (09:32)
[2019-12-03] MEDS ORDERED: HYDR25T PO (09:32)
--- NOTE | 2019-12-03 09:53 | NUR ---
OFF FLOOR FOR XRAY
--- NOTE | 2019-12-03 10:49 | NUR ---
PATIENT REPORTS LOWER BACK PAIN 8 OF 10. PERCOCET GIVEN PER ORDERS. WILL MONITOR EFFECTIVENESS. CALL LIGHT WITHIN REACH.
--- NOTE | 2019-12-03 11:52 | NUR ---
PT ASSESSED FOR HOME O2: SPO2 RA AT REST 95% HR 87 SPO2 RA AMBULATIN-92% HR 108 PT DOSE NOT QUALIFIY FOR HOME O2. PT STAES SHE DOES HAVE O2 AT HOME. SHE STATES SHE USES O2 ONLY NEEDED.
[2019-12-03 12:00] VITALS: BP 173/93
--- NOTE | 2019-12-03 14:30 | NUR ---
case management received a script for shower chair and destinee dorsey, faxed this to [facility], spoke to John. he stated patient has an open case with this [employer] company but they have never made any deliveries to her, educated him that patient would be discharged to home today and would need equipement delivered to her home
--- NOTE | 2019-12-03 14:47 | NUR ---
Discharge instructions reviewed with patient/family. Patient receptive and verbalizes understanding. Follow-up care arranged. Written instructions given to patient/family. [place]
--- NOTE | 2019-12-03 15:03 | NUR ---
PHYSICAL THERAPY CO-SIGN I approve of the Physical Therapy notes written above. Juju Mccarty PT
== END 2019-12-03 14:47 | disposition home or self-care (01) | DRG 720 ==
LOC: ED 07:25 → EDHOLD 09:52 → 4E 09:52
PROVIDERS: Emergency Medicine; Internal Medicine; Registered Nurse; ADMIT Internal Medicine
DX: A41.9 Sepsis, unspecified organism (principal); I10 Essential (primary) hypertension; F33.9 Major depressive disorder, recurrent, unspecified; M81.0 Age-related osteoporosis without current pathological fracture; E78.2 Mixed hyperlipidemia; F41.1 Generalized anxiety disorder; D47.3 Essential (hemorrhagic) thrombocythemia; G89.29 Other chronic pain; M48.54XA Collapsed vertebra, not elsewhere classified, thoracic region, initial encounter for fracture; F17.210 Nicotine dependence, cigarettes, uncomplicated; J96.21 Acute and chronic respiratory failure with hypoxia; I16.0 Hypertensive urgency; E87.8 Other disorders of electrolyte and fluid balance, not elsewhere classified; J43.9 Emphysema, unspecified; E87.1 Hypo-osmolality and hyponatremia; J20.9 Acute bronchitis, unspecified; G43.909 Migraine, unspecified, not intractable, without status migrainosus; Z96.1 Presence of intraocular lens; M47.817 Spondylosis without myelopathy or radiculopathy, lumbosacral region; E43 Unspecified severe protein-calorie malnutrition; Z99.81 Dependence on supplemental oxygen; Z88.1 Allergy status to other antibiotic agents; Z88.8 Allergy status to other drugs, medicaments and biological substances; Z88.6 Allergy status to analgesic agent; Z90.710 Acquired absence of both cervix and uterus; Z98.42 Cataract extraction status, left eye; Z98.41 Cataract extraction status, right eye; Z90.49 Acquired absence of other specified parts of digestive tract; Z82.49 Family history of ischemic heart disease and other diseases of the circulatory system; Z82.5 Family history of asthma and other chronic lower respiratory diseases; Z83.3 Family history of diabetes mellitus; Z82.3 Family history of stroke; Z85.41 Personal history of malignant neoplasm of cervix uteri; Z79.899 Other long term (current) drug therapy; Z71.6 Tobacco abuse counseling; Z68.20 Body mass index [BMI] 20.0-20.9, adult

== ENCOUNTER 2019-12-08 09:56 | Emergency (ER) | payer OTHER ==
[~2019-12-08] VITALS: Ht 160 cm; Wt 53.5 kg
[~2019-12-08 09:56] MED LIST changes: +HYDR25T PO; +OMNICEF300 MG PO; +PERCOCET 7.5 MG-325 PO; +PROZAC40 M1 PO; +ZITHROMAX500 MG PO
[2019-12-08 10:04] VITALS: BP 134/94
[2019-12-08] MEDS ORDERED: NORCO 10-325 T1 EACH PO (13:25)
== END 2019-12-08 13:29 | disposition home or self-care (01) ==
LOC: ED 09:56
DX: R09.1 Pleurisy (principal); Z88.8 Allergy status to other drugs, medicaments and biological substances; Z79.899 Other long term (current) drug therapy

== ENCOUNTER 2019-12-14 11:18 | Inpatient (IN) | payer OTHER ==
[~2019-12-14] VITALS: Ht 160 cm; Wt 55.6 kg
[~2019-12-14 11:18] MED LIST changes: +NORCO 10-325 T1 EACH PO
[2019-12-14 12:05] LABS: BASO # 0.1 10*3/uL (0.0-0.1); BASO % 0.6 % (0.0-1.0); EOS # 0.1 10*3/uL (0.0-0.4); EOS % 0.9 % (1.0-4.0); HEMATOCRIT 38.3 % (37.0-47.0); LYMPH # 3.3 10*3/uL (1.3-4.4); LYMPH % 25.8 % (27.0-41.0); MEAN CELL VOLUME 89.3 fl (81.0-99.0); MEAN CORPUSCULAR HGB 29.6 pg (27.0-31.0); MEAN CORPUSCULAR HGB CONC 33.2 g/dl (33.0-37.0); MEAN PLATELET VOLUME 9.3 fl (9.6-12.3); MONO # 0.8 10*3/uL (0.1-1.0); MONO % 6.4 % (3.0-9.0); NEUT # 8.3 10*3/uL (2.3-7.9); NEUT % 66.1 % (47.0-73.0); PLATELET COUNT AUTOMATED 447 10*3/uL (130-400); RED BLOOD COUNT 4.29 10*6/uL (4.10-5.10); RED CELL DISTRI WIDTH 14.1 % (0-14.5); WHITE BLOOD COUNT 12.6 10*3/uL (4.8-10.8)
[2019-12-14 12:12] VITALS: BP 172/98
[2019-12-14 12:15] LABS: ACT PARTIAL THROMBO TIME 27.1 SECONDS (20.0-32.1); INTERNATIONAL NORM RATIO 0.9 (2.0-3.5)
[2019-12-14 12:21] LABS: ALBUMIN 3.6 gm/dl (3.1-4.5); ALKALINE PHOSPHATASE 107 U/L (45-117); BUN 14 mg/dl (7-24); CHLORIDE 100 mmol/L (98-107); CREATININE 0.77 mg/dL (0.55-1.02); POTASSIUM 4.4 mmol/L (3.5-5.1); SGOT/AST 5 IU/L (3-35); SGPT/ALT 17 U/L (12-78); SODIUM 128 mmol/L (136-145); TOTAL PROTEIN 7.2 gm/dL (6.4-8.2)
[2019-12-14 12:24] LABS: TROPONIN I < 0.015 ng/ml (<0.045)
[2019-12-14 12:34] VITALS: BP 180/100
[2019-12-14 13:17] VITALS: BP 178/100
--- NOTE | 2019-12-14 13:17 | NUR ---
PT FEELING IMPROVED WITH THE PERCOCET. STATES THAT THE PAIN HAS EASED. PT IS BREATHING EASIER AT THIS TIME. PT MEDICATED PER DOC ORDERS.
--- NOTE | 2019-12-14 14:26 | NUR ---
CALLED TO TAKE PT UP STAIRS. PT NURSE JUST WENT TO LUNCH.
--- NOTE | 2019-12-14 15:30 | NUR ---
Time: 1529 A 59 year old FEMALE admitted to under services of DENISSE GARCÍA DO, Pt. arrived via [facility]RETCHER FROM ER. Chief complaint: SOB, BACK PAIN, SEPSIS, PNEUMONITIS. AMARILIS DWYER
[2019-12-14] MEDS ORDERED: ADVAIR 250/501 EA INH (15:57)
[2019-12-14] MEDS ORDERED: ROZEREM8 MG PO (15:58)
[2019-12-14 16:00] VITALS: BP 164/101
--- NOTE | 2019-12-14 16:30 | NUR ---
SPOKE WITH DR. STAUFFER IN REGARDS TO CONSULT. CONSULT COMPLETED. HE STATED HE WOULD SEE HER IN THE MORNING.
[2019-12-14 20:00] VITALS: BP 131/72
[2019-12-15] VITALS: BP 90/52
[2019-12-15 04:20] VITALS: BP 122/80
[2019-12-15 06:25] LABS: HEMATOCRIT 35.4 % (37.0-47.0); MEAN CELL VOLUME 89.6 fl (81.0-99.0); MEAN CORPUSCULAR HGB 29.4 pg (27.0-31.0); MEAN CORPUSCULAR HGB CONC 32.8 g/dl (33.0-37.0); MEAN PLATELET VOLUME 9.6 fl (9.6-12.3); PLATELET COUNT AUTOMATED 400 10*3/uL (130-400); RED BLOOD COUNT 3.95 10*6/uL (4.10-5.10); RED CELL DISTRI WIDTH 13.7 % (0-14.5); WHITE BLOOD COUNT 10.6 10*3/uL (4.8-10.8)
[2019-12-15 06:39] LABS: ALBUMIN 3.2 gm/dl (3.1-4.5); BUN 16 mg/dl (7-24); CHLORIDE 103 mmol/L (98-107); CREATININE 0.78 mg/dL (0.55-1.02); POTASSIUM 4.3 mmol/L (3.5-5.1); SGOT/AST 10 IU/L (3-35); SGPT/ALT 16 U/L (12-78); SODIUM 133 mmol/L (136-145); TOTAL PROTEIN 6.5 gm/dL (6.4-8.2)
[2019-12-15 06:40] LABS: ALKALINE PHOSPHATASE 103 U/L (45-117)
[2019-12-15 07:23] LABS: PLATELET SUFFICIENCY NORMAL (NORMAL); ROULEAUX SLIGHT; TOTAL CELLS COUNTED 100 #CELLS
[2019-12-15 08:00] VITALS: BP 110/73
--- NOTE | 2019-12-15 08:13 | NUR ---
24 HR chart check completed.
--- NOTE | 2019-12-15 09:00 | NUR ---
Ash Handler in to talk to patient. Patient states lives at home with alone. There are 18 steps in the home. Physician: dean maldonado [facility] Home health services: none Patient's level of ADLs: MINIMAL ASSIST Patient has working utilities: all working DME: home oxygen at 2.5l prn, walker, shower chair Follow-up physician's appointment after d/c: will be made by hospitalist nurse director upon discharge Does patient want to access PORTAL?: no Discharge plan discussed with patient, she states she lives at home alone with family living across the street and helping her on a regular basis, she states she is in a lot of pain in her back and has not been ambulating well, she states her last visit she received a back brace and wears it occasionally until it hurts her and then she takes it off, discussed with her a short term long-term prior to returning home, she declined, also inquired if she continues to have VNA that was set up last admission, she stated no, she didn't want any home services, didn't feel she needed any, case management will follow for any home needs. ISAC EDGAR
[2019-12-15 12:00] VITALS: BP 103/60
[2019-12-15 16:00] VITALS: BP 117/69
--- NOTE | 2019-12-15 17:13 | NUR ---
NORCO ADMINISTERED FOR PT C/O 01/05 CHRONIC BACK AND RIBCAGE PAIN. WILL MONITOR AND REASSESS. NO OTHER COMPLAINTS AT THIS TIME.
--- NOTE | 2019-12-15 18:00 | NUR ---
RESTING NO S/S OF DISTRESS.
[2019-12-15 20:00] VITALS: BP 139/66
[2019-12-16] VITALS (10 sets, daily range): BP systolic 99–145; BP diastolic 52–85
--- NOTE | 2019-12-16 07:27 | NUR ---
OFF FLOOR TO SURGERY.
--- NOTE | 2019-12-16 09:00 | NUR ---
case management visits with patient, she states she will return home when discharged, she stated she has a lot of help from her family. discussed with her VNA and she stated she does not want any home services at this time, case management will follow
--- NOTE | 2019-12-16 14:32 | NUR ---
pt c/o back pain 9 on scale of 1-10
--- NOTE | 2019-12-16 18:38 | NUR ---
norco given for c/o back pain. 9/10 on pain scale.
--- NOTE | 2019-12-16 20:06 | NUR ---
MEDICATED WITH TYLENOL PER PT'S REQUEST FOR BACK PAIN.
--- NOTE | 2019-12-16 20:10 | NUR ---
PT. STATES NORCO NOT EFFECTIVE. PT. REQUESTING THAT I ASK FOR SOMETHING STRONGER. PT. STATES THAT SHE ONLY TAKES TYLENOL AT HOME.
--- NOTE | 2019-12-16 20:23 | NUR ---
SPOKE TO RESIDENT & HE WILL LOOK AT PATIENT'S MEDICATIONS.
--- NOTE | 2019-12-16 21:00 | NUR ---
STATES TYLENOL SOMEWHAT EFFECTIVE.
--- NOTE | 2019-12-16 22:29 | NUR ---
MEDICATED WITH NORCO FOR C/O BACK PAIN RATED A 9/10.
--- NOTE | 2019-12-16 23:00 | NUR ---
RESTING IN BED WATCHING T.V. VOICES NO C/O AT THIS TIME. PAIN MEDICATON APPARENTLY EFFECTIVE; CALL LIGHT WITHIN REACH.
[2019-12-17] VITALS: BP 101/65
--- NOTE | 2019-12-17 03:14 | NUR ---
NORCO PROVIDED PER PTS C/O 01/05 BACK PAIN. PT IS RESTING IN BED WATCHING TV IN NO DISTRESS.
--- NOTE | 2019-12-17 06:00 | NUR ---
BACK TO BED FROM BATHROOM. TOOK PO MEDICATIONS WITHOUT DIFFICULTY. VOICES NO C/O AT THIS TIME. CALL LIGHT WITHIN REACH.
[2019-12-17 08:00] VITALS: BP 136/81
--- NOTE | 2019-12-17 08:32 | NUR ---
NORCO GIVEN FOR COMPLAINTS OF BACK PAIN 01/05. WILL MONITOR.
--- NOTE | 2019-12-17 09:30 | NUR ---
PER PT, VALERIO EFFECTIVE. CALL LIGHT IN REACH.
--- NOTE | 2019-12-17 10:30 | NUR ---
case management visits with patient, she will return home when discharged and denies any home needs
[2019-12-17] MEDS ORDERED: ZITHROMAX500 MG PO (11:00)
[2019-12-17 11:07] LABS: ACID FAST SPEC PROCESSING Concentration (.)
[2019-12-17] MEDS ORDERED: OMNICEF300 MG PO (11:15)
[2019-12-17] MEDS ORDERED: PREDNISONE10 MG PO (11:15)
[2019-12-17] MEDS ORDERED: PERCOCET 5-3251 EACH PO (11:17)
[2019-12-17 12:00] VITALS: BP 126/77
--- NOTE | 2019-12-17 13:11 | NUR ---
Discharge instructions reviewed with patient/family. Patient receptive and verbalizes understanding. Follow-up care arranged. Written instructions given to patient/family. [place]
== END 2019-12-17 13:11 | disposition home or self-care (01) | DRG 720 ==
LOC: ED 11:18 → EDHOLD 12:54 → 4E 12:54
PROVIDERS: Emergency Medicine; Internal Medicine Critical Care Medicine; Physical Therapist; ADMIT Internal Medicine
PROC: 0B928ZZ Drainage of Carina, Via Natural or Artificial Opening Endoscopic (ICD-10-PCS; principal; 2019-12-16)
PROC: 0B948ZZ Drainage of Right Upper Lobe Bronchus, Via Natural or Artificial Opening Endoscopic (ICD-10-PCS; 2019-12-16)
PROC: 0B988ZZ Drainage of Left Upper Lobe Bronchus, Via Natural or Artificial Opening Endoscopic (ICD-10-PCS; 2019-12-16)
PROC: 0B958ZZ Drainage of Right Middle Lobe Bronchus, Via Natural or Artificial Opening Endoscopic (ICD-10-PCS; 2019-12-16)
PROC: 0B938ZZ Drainage of Right Main Bronchus, Via Natural or Artificial Opening Endoscopic (ICD-10-PCS; 2019-12-16)
PROC: 0B978ZZ Drainage of Left Main Bronchus, Via Natural or Artificial Opening Endoscopic (ICD-10-PCS; 2019-12-16)
PROC: 0B968ZZ Drainage of Right Lower Lobe Bronchus, Via Natural or Artificial Opening Endoscopic (ICD-10-PCS; 2019-12-16)
PROC: 0B9B8ZZ Drainage of Left Lower Lobe Bronchus, Via Natural or Artificial Opening Endoscopic (ICD-10-PCS; 2019-12-16)
PROC: 0B998ZZ Drainage of Lingula Bronchus, Via Natural or Artificial Opening Endoscopic (ICD-10-PCS; 2019-12-16)
DX: A41.9 Sepsis, unspecified organism (principal); J69.0 Pneumonitis due to inhalation of food and vomit; D47.3 Essential (hemorrhagic) thrombocythemia; E87.1 Hypo-osmolality and hyponatremia; J44.0 Chronic obstructive pulmonary disease with (acute) lower respiratory infection; I10 Essential (primary) hypertension; S22.070S Wedge compression fracture of T9-T10 vertebra, sequela; G89.29 Other chronic pain; J45.901 Unspecified asthma with (acute) exacerbation; J44.1 Chronic obstructive pulmonary disease with (acute) exacerbation; J20.9 Acute bronchitis, unspecified; F32.9 Major depressive disorder, single episode, unspecified; M81.0 Age-related osteoporosis without current pathological fracture; F17.210 Nicotine dependence, cigarettes, uncomplicated; E78.5 Hyperlipidemia, unspecified; F41.1 Generalized anxiety disorder; G43.909 Migraine, unspecified, not intractable, without status migrainosus; K31.84 Gastroparesis; J98.09 Other diseases of bronchus, not elsewhere classified; Z90.710 Acquired absence of both cervix and uterus; Z88.1 Allergy status to other antibiotic agents; Z88.8 Allergy status to other drugs, medicaments and biological substances; Z79.899 Other long term (current) drug therapy; Z98.42 Cataract extraction status, left eye; Z98.41 Cataract extraction status, right eye; Z96.1 Presence of intraocular lens; Z82.49 Family history of ischemic heart disease and other diseases of the circulatory system; Z83.6 Family history of other diseases of the respiratory system

== ENCOUNTER 2019-12-29 09:43 | Emergency (ER) | payer OTHER ==
[~2019-12-29] VITALS: Ht 160 cm; Wt 53.5 kg
[~2019-12-29 09:43] MED LIST changes: +PERCOCET 5-3251 EACH PO; +ROZEREM8 MG PO
[2019-12-29 09:51] VITALS: BP 136/85
[2019-12-29 10:21] LABS: BASO # 0.1 10*3/uL (0.0-0.1); BASO % 0.5 % (0.0-1.0); EOS % 0.2 % (1.0-4.0); HEMATOCRIT 38.1 % (37.0-47.0); LYMPH # 2.1 10*3/uL (1.3-4.4); LYMPH % 22.9 % (27.0-41.0); MEAN CELL VOLUME 88.2 fl (81.0-99.0); MEAN CORPUSCULAR HGB 29.6 pg (27.0-31.0); MEAN CORPUSCULAR HGB CONC 33.6 g/dl (33.0-37.0); MEAN PLATELET VOLUME 9.6 fl (9.6-12.3); MONO # 0.5 10*3/uL (0.1-1.0); MONO % 5.2 % (3.0-9.0); NEUT # 6.5 10*3/uL (2.3-7.9); PLATELET COUNT AUTOMATED 450 10*3/uL (130-400); RED BLOOD COUNT 4.32 10*6/uL (4.10-5.10); RED CELL DISTRI WIDTH 14.1 % (0-14.5); WHITE BLOOD COUNT 9.1 10*3/uL (4.8-10.8)
[2019-12-29 10:27] LABS: BILIRUBIN NEGATIVE; BLOOD NEGATIVE (NEGATIVE); CLARITY CLEAR (CLEAR); COLOR YELLOW (YELLOW); GLUCOSE NEGATIVE; KETONE NEGATIVE; LEUKO ESTERASE TRACE (NEGATIVE); NITRITE NEGATIVE (NEGATIVE); SPECIFIC GRAVITY 1.025 (1.001-1.030)
[2019-12-29 10:29] LABS: BACTERIA 1+; MUCOUS 2+
[2019-12-29 10:31] LABS: ACT PARTIAL THROMBO TIME 26.7 SECONDS (20.0-32.1); INTERNATIONAL NORM RATIO 0.9 (2.0-3.5)
[2019-12-29 10:31] LABS: URINE AMPHETAMINES < 1000 (1000ng/ml); URINE BARBITURATES < 200 (200ng/ml); URINE BENZODIAZEPINES < 200 (200ng/ml); URINE CANNABINOIDS (THC) < 50 (50ng/ml); URINE COCAINE < 300 (300ng/ml); URINE METHADONE < 300 (300ng/ml); URINE OPIATES < 300 (300ng/ml)
[2019-12-29 10:35] LABS: URINE PHENCYCLIDINE < 25 (25ng/ml)
[2019-12-29 10:38] LABS: ALBUMIN 3.7 gm/dl (3.1-4.5); ALKALINE PHOSPHATASE 134 U/L (45-117); BUN 13 mg/dl (7-24); CHLORIDE 98 mmol/L (98-107); CREATININE 1.16 mg/dL (0.55-1.02); LIPASE 101 U/L (73-393); POTASSIUM 4.5 mmol/L (3.5-5.1); SGOT/AST 8 IU/L (3-35); SGPT/ALT 17 U/L (12-78); SODIUM 131 mmol/L (136-145); TOTAL PROTEIN 7.9 gm/dL (6.4-8.2)
[2019-12-29 10:41] LABS: TROPONIN I < 0.015 ng/ml (<0.045)
[2019-12-29] MEDS ORDERED: CEFUROXIME AXE500 MG PO (12:44)
[2019-12-29] MEDS ORDERED: PERCOCET 5-3251 EACH PO (12:44)
[2019-12-29] MEDS ORDERED: PHENERGAN25 M3 PO (12:44)
== END 2019-12-29 12:58 | disposition home or self-care (01) ==
LOC: ED 09:43
PROVIDERS: Family Medicine
DX: N39.0 Urinary tract infection, site not specified (principal); M48.50XA Collapsed vertebra, not elsewhere classified, site unspecified, initial encounter for fracture; Z88.8 Allergy status to other drugs, medicaments and biological substances; Z88.1 Allergy status to other antibiotic agents; Z79.899 Other long term (current) drug therapy; Z72.0 Tobacco use

== ENCOUNTER 2020-01-16 10:34 | Inpatient (IN) | payer OTHER ==
[~2020-01-16] VITALS: Ht 160 cm; Wt 58.2 kg
[~2020-01-16 10:34] MED LIST changes: +PHENERGAN25 M3 PO
[2020-01-16 10:42] VITALS: BP 140/81
[2020-01-16 11:53] LABS: BASO # 0.1 10*3/uL (0.0-0.1); BASO % 0.9 % (0.0-1.0); EOS # 0.1 10*3/uL (0.0-0.4); HEMATOCRIT 35.6 % (37.0-47.0); LYMPH # 2.4 10*3/uL (1.3-4.4); LYMPH % 27.3 % (27.0-41.0); MEAN CELL VOLUME 93.2 fl (81.0-99.0); MEAN CORPUSCULAR HGB 30.1 pg (27.0-31.0); MEAN CORPUSCULAR HGB CONC 32.3 g/dl (33.0-37.0); MEAN PLATELET VOLUME 9.1 fl (9.6-12.3); MONO # 0.6 10*3/uL (0.1-1.0); MONO % 7.3 % (3.0-9.0); NEUT # 5.5 10*3/uL (2.3-7.9); NEUT % 63.3 % (47.0-73.0); PLATELET COUNT AUTOMATED 428 10*3/uL (130-400); RED BLOOD COUNT 3.82 10*6/uL (4.10-5.10); RED CELL DISTRI WIDTH 14.4 % (0-14.5); WHITE BLOOD COUNT 8.6 10*3/uL (4.8-10.8)
[2020-01-16 12:02] LABS: ACT PARTIAL THROMBO TIME 26.2 SECONDS (20.0-32.1); INTERNATIONAL NORM RATIO 0.9 (2.0-3.5)
[2020-01-16 12:10] LABS: ALBUMIN 3.1 gm/dl (3.1-4.5); ALKALINE PHOSPHATASE 101 U/L (45-117); BUN 8 mg/dl (7-24); CHLORIDE 108 mmol/L (98-107); CREATININE 0.68 mg/dL (0.55-1.02); POTASSIUM 4.1 mmol/L (3.5-5.1); SGOT/AST 8 IU/L (3-35); SGPT/ALT 16 U/L (12-78); SODIUM 140 mmol/L (136-145); TOTAL PROTEIN 6.4 gm/dL (6.4-8.2)
[2020-01-16 12:15] LABS: TROPONIN I < 0.015 ng/ml (<0.045)
--- NOTE | 2020-01-16 13:32 | NUR ---
PT REPORTS NO RELIEF OF PAIN WITH MEDICATIONS GIVEN. PT IS NOT WORKING HARD TO BREATH.
[2020-01-16 13:34] VITALS: BP 132/85
[2020-01-16 14:15] VITALS: BP 160/95
--- NOTE | 2020-01-16 14:30 | NUR ---
NORCO GIVEN FOR C/O BACK PAIN. RATES 9/10 ON PAIN SCALE. WILL MONITOR.
--- NOTE | 2020-01-16 15:30 | NUR ---
NORCO HELPING, OT FULLY EFFECTIVE. WILL MONITOR.
[2020-01-16 16:00] VITALS: BP 137/93
--- NOTE | 2020-01-16 16:14 | NUR ---
PT INSTRUCTED ON USE OF FLUTTER VLAVE. PT ABLE TO DEMONSTRATE PROPER TECHNIQUE AND INSTRUCTED TO USE Q 1-2 HR W/A. SET ON MEDIUM RESISTANCE.
--- NOTE | 2020-01-16 16:34 | NUR ---
NOTIFIED DR. STAUFFER OF CONSULT
[2020-01-16 20:00] VITALS: BP 150/80
--- NOTE | 2020-01-16 21:22 | NUR ---
SAROJ MEDICATED WITH NORCO FOR COMPLAINTS OF BACK PAIN. WILL MONITOR FOR EFFECTIVENESS. CALL LIGHT IN REACH.
--- NOTE | 2020-01-16 22:15 | NUR ---
VALERIO EFFECTIVE. PATIENT IN BED WATCHING TV. DENIES COMPLAINTS OF PAIN OR DISCOMFORT. CALL LIGHT IN REACH.
[2020-01-17] VITALS: BP 126/77
--- NOTE | 2020-01-17 03:07 | NUR ---
MEDICATED WITH NORCO FOR COMPLAINTS OF BACK PAIN.
[2020-01-17 05:06] LABS: BUN 16 mg/dl (7-24); CHLORIDE 108 mmol/L (98-107); CREATININE 0.74 mg/dL (0.55-1.02); POTASSIUM 4.1 mmol/L (3.5-5.1); SODIUM 140 mmol/L (136-145)
[2020-01-17 06:02] LABS: BASO % 0.1 % (0.0-1.0); HEMATOCRIT 34.5 % (37.0-47.0); LYMPH # 1.6 10*3/uL (1.3-4.4); LYMPH % 10.3 % (27.0-41.0); MEAN CELL VOLUME 95.3 fl (81.0-99.0); MEAN CORPUSCULAR HGB 30.1 pg (27.0-31.0); MEAN CORPUSCULAR HGB CONC 31.6 g/dl (33.0-37.0); MEAN PLATELET VOLUME 9.9 fl (9.6-12.3); MONO # 0.7 10*3/uL (0.1-1.0); MONO % 4.5 % (3.0-9.0); NEUT % 84.8 % (47.0-73.0); PLATELET COUNT AUTOMATED 412 10*3/uL (130-400); RED BLOOD COUNT 3.62 10*6/uL (4.10-5.10); RED CELL DISTRI WIDTH 14.1 % (0-14.5); WHITE BLOOD COUNT 15.4 10*3/uL (4.8-10.8)
[2020-01-17 06:14] LABS: ACT PARTIAL THROMBO TIME 25.5 SECONDS (20.0-32.1); INTERNATIONAL NORM RATIO 0.9 (2.0-3.5)
[2020-01-17 08:00] VITALS: BP 125/74
--- NOTE | 2020-01-17 08:18 | NUR ---
MEDICATED WITH PRN NORCO PER PATIENT REQUEST FOR CO BACK PAIN RATED A 9/10. WILL ASSESS EFFECTIVENESS.
--- NOTE | 2020-01-17 09:00 | NUR ---
Dry Box Operator in to talk to patient. Patient states lives at home with alone. There are 18 steps in the home. Physician: dean maldonado [facility] Home health services: none Patient's level of ADLs: INDEPENDENT Patient has working utilities: all working DME: home oxygen at 2.5l/min prn, walker, shower chair Follow-up physician's appointment after d/c: will be made by hospitalist nurse director upon discharge Does patient want to access PORTAL?: no Discharge plan discussed with patient, she states she lives at home alone, she has help from her daughter, who lives across the street, and her grandchildren, she is independent in adls and ambulation. has a walker if needed along with a shower chair and home oxygen at 2.5l/min prn, discussed with her a short term usp for rehab prior to returning home and she declined, also discussed VNA and educated her on the servcies they provide, she declined, she states she will return home when discharged and denies any home needs, case management will follow. ISAC EDGAR
--- NOTE | 2020-01-17 09:18 | NUR ---
PER PATIENT NORCO UNEFFECTIVE.
--- NOTE | 2020-01-17 11:34 | NUR ---
PATIENT MEDICATED WITH PRN NORCO PER NEW ORDER. WILL ASSESS EFFECTIVENESS.
--- NOTE | 2020-01-17 11:48 | NUR ---
24 HR chart check completed.
[2020-01-17 11:53] LABS: BILIRUBIN NEGATIVE; BLOOD NEGATIVE (NEGATIVE); CLARITY CLEAR (CLEAR); COLOR YELLOW (YELLOW); GLUCOSE NEGATIVE; KETONE NEGATIVE; LEUKO ESTERASE NEGATIVE (NEGATIVE); NITRITE NEGATIVE (NEGATIVE); PH 6.5 (4.5-8.0); SPECIFIC GRAVITY < 1.005 (1.001-1.030); UROBILINOGEN 0.2 E.U./dl (0.0-1.0)
[2020-01-17 11:59] LABS: BACTERIA 2+; EPITHELIAL CELLS 0-2; YEAST 1+
[2020-01-17 12:00] VITALS: BP 119/76
--- NOTE | 2020-01-17 12:34 | NUR ---
PER PATIENT NORCO EFFECTIVE.
--- NOTE | 2020-01-17 15:25 | NUR ---
PATIENT RESTING IN BED. VOICES NO CONCERNS AT THIS TIME. SPUTUM CUP PROVIDED AND PATIENT AWARE WE NEED A SPUTUM CULTURE ON HER IF SHE IS ABLE TO COUGH ANYTHING UP.
--- NOTE | 2020-01-17 15:58 | NUR ---
MEDICATED WITH PRN NORCO PER PATIENT REQUEST FOR CO BACK PAIN RATED A 7/10. WILL ASSESS EFFECTIVNESS.
[2020-01-17 16:00] VITALS: BP 118/72
--- NOTE | 2020-01-17 16:58 | NUR ---
PER PATIENT NORCO ONLY SOMEWHAT EFFECTIVE.
[2020-01-17 20:00] VITALS: BP 139/99
--- NOTE | 2020-01-17 20:28 | NUR ---
NORCO GIVEN PER PATIENT REQUEST FOR COMPLAINTS OF BACK PAIN RATED 9/10. WILL ASSESS EFFECTIVENESS.
--- NOTE | 2020-01-17 20:43 | NUR ---
PATIENT REQUESTING THAT MORPHINE BE ADDED TO HER PRN MEDICATIONS. SHE STATED THE NORCO DOES NOT HELP HER MUCH MORPHINE AND THAT SHE NORMALLY GETS BOTH NORCO AND MORPHINE WHILE IN THE HOSPITAL. NOTIFIED DR ROSS OF PATIENT'S WISHES, SHE PUT MORPHINE ON FOR A ONE TIME DOSE. PATIENT JUST RECIEVED NORCO ABOUT 15 MINUTES AGO SO I AM TO WAIT AN HOUR AND ASSESS THE NORCO BEFORE GIVING THE ONE TIME DOSE OF MORPHINE PER DR ROSS.
--- NOTE | 2020-01-17 21:20 | NUR ---
NORCO NOT EFFECTIVE PER PATIENT. PAIN RATED 7/10. WILL ADMINISTER MORPHINE PER PATIENT REQUEST.
--- NOTE | 2020-01-17 22:03 | NUR ---
MORPHINE GIVEN PER PATIENT REQUEST FOR CONTINUED BACK PAIN RATED 7/10. WILL ASSESS EFFECTIVENESS.
--- NOTE | 2020-01-17 23:00 | NUR ---
MORPHINE EFFECTIVE PER PATIENT. WILL CONTINUE TO MONITOR.
[2020-01-18] VITALS: BP 140/67
--- NOTE | 2020-01-18 00:36 | NUR ---
NORCO GIVEN PER PATIENT REQUEST FOR COMPLAINTS OF BACK PAIN RATED 7/10. WILL ASSESS EFFECTIVENESS.
--- NOTE | 2020-01-18 01:30 | NUR ---
PATIENT STATED NORCO WAS NOT EFFECTIVE. PATIENT STATED SHE WANTS MORPHINE. WILL NOTIFY RESIDENT ABA TUTOR, DR ROSS.
--- NOTE | 2020-01-18 02:20 | NUR ---
PATIENT PUT CALL LIGHT ON AND STATED SHE WAS STILL IN PAIN AND REQUESTING MORPHINE. NOTIFIED DR ROSS. SHE TOLD ME TO PUT THE ORDER IN FOR 1MG IV MORPHINE ONE TIME NOW. ORDER PUT IN. WILL ADMINISTER WHEN VERIFIED.
--- NOTE | 2020-01-18 02:37 | NUR ---
MORPHINE GIVEN PER PATIENT REQUEST FOR COMPLAINTS OF BACK AND BILATERAL HIP PAIN RATED 9/10. WILL ASSESS EFFECTIVENESS.
[2020-01-18 02:43] VITALS: BP 138/88
--- NOTE | 2020-01-18 03:30 | NUR ---
MORPHINE EFFECTIVE. PATIENT RESTING IN BED WITH EYES CLOSED. NO SIGNS/SYMPTOMS OF DISTRESS. RESPIRATIONS EASY, REGULAR, NON-LABORED. WILL CONTINUE TO MONITOR
--- NOTE | 2020-01-18 05:16 | NUR ---
NORCO GIVEN PER PATIENT REQUEST FOR COMPLAINTS OF BACK PAIN RATED 8/10. WILL ASSESS EFFECTIVENESS.
[2020-01-18 06:04] LABS: BASO % 0.1 % (0.0-1.0); HEMATOCRIT 32.8 % (37.0-47.0); LYMPH # 1.5 10*3/uL (1.3-4.4); LYMPH % 7.3 % (27.0-41.0); MEAN CELL VOLUME 94.8 fl (81.0-99.0); MEAN CORPUSCULAR HGB 29.8 pg (27.0-31.0); MEAN CORPUSCULAR HGB CONC 31.4 g/dl (33.0-37.0); MEAN PLATELET VOLUME 9.9 fl (9.6-12.3); MONO % 4.8 % (3.0-9.0); NEUT # 17.2 10*3/uL (2.3-7.9); NEUT % 87.3 % (47.0-73.0); PLATELET COUNT AUTOMATED 375 10*3/uL (130-400); RED BLOOD COUNT 3.46 10*6/uL (4.10-5.10); RED CELL DISTRI WIDTH 14.5 % (0-14.5); WHITE BLOOD COUNT 19.8 10*3/uL (4.8-10.8)
[2020-01-18 06:07] LABS: BUN 13 mg/dl (7-24); CHLORIDE 105 mmol/L (98-107); CREATININE 0.69 mg/dL (0.55-1.02); POTASSIUM 3.8 mmol/L (3.5-5.1); SODIUM 140 mmol/L (136-145)
--- NOTE | 2020-01-18 07:30 | NUR ---
TOOK OVER CARE OF PT. PT LYING IN BED. RESPIRATIONS EASY AND UNLABORED ON ROOM AIR. CALL LIGHT IN REACH.
[2020-01-18 08:00] VITALS: BP 156/86
--- NOTE | 2020-01-18 08:37 | NUR ---
PT GIVEN NORCO AT THIS TIME FOR C/O BACK PAIN. WILL MONITOR FOR EFFECTIVENESS.
--- NOTE | 2020-01-18 09:00 | NUR ---
case management visits with patient, she states she will return home when discharged and denies any home needs, case management will follow
--- NOTE | 2020-01-18 09:37 | NUR ---
VALERIO EFFECTIVE PER PT.
--- NOTE | 2020-01-18 10:50 | NUR ---
PT GIVEN MORPHINE 1 MG AT THIS TIME FOR C/O PAIN TO BACK. RATES PAIN 11/04. WILL MONITOR FOR EFFECTIVENESS. CALL LIGHT IN REACH.
[2020-01-18 11:10] LABS: ARTERIAL BLOOD GAS PH 7.423 (7.35-7.45)
--- NOTE | 2020-01-18 11:50 | NUR ---
PT STATES THAT MORPHINE IS EFFECTIVE.
[2020-01-18 12:00] VITALS: BP 136/84
--- NOTE | 2020-01-18 12:15 | NUR ---
PT GIVEN NORCO AT THIS TIME FOR C/O BACK PAIN. WILL MONITOR FOR EFFECTIVENESS. CALL LIGHT IN REACH.
--- NOTE | 2020-01-18 13:14 | NUR ---
ATTEMPTING TO CALL MRI IN REGARDS TO PT TIME OF MRI FOR ATIVAN MEDICATION. NO MAINFRAME ARCHITECT; I AM TOLD THAT IT IS POSSIBLE THAT MRI HAS LEFT FOR THE DAY. WILL NOTIFY PHYSICIAN.
--- NOTE | 2020-01-18 13:15 | NUR ---
VALERIO EFFECTIVE PER PT.
--- NOTE | 2020-01-18 14:00 | NUR ---
PHYSICIAN NOTIFIED THAT PT MRI WILL BE TOMORROW.
--- NOTE | 2020-01-18 14:22 | NUR ---
PT GIVEN MORPHINE FOR C/O BACK PAIN AT 12/05. WILL MONITOR FOR EFFECTIVENESS. PT LYING IN BED. RESPIRATIONS EASY AND UNLABORED ON ROOM AIR. IV ATBS INFUSING. CALL LIGHT IN REACH.
--- NOTE | 2020-01-18 15:12 | NUR ---
DR STAUFFER NOTIFIED OF ABG RESULTS.
--- NOTE | 2020-01-18 15:22 | NUR ---
PT STATES THAT MORPHINE IS EFFECTIVE.
[2020-01-18 16:00] VITALS: BP 135/86
--- NOTE | 2020-01-18 16:17 | NUR ---
PT GIVEN NORCO AT THIS TIME FOR BACK PAIN. WILL MONITOR FOR EFFECTIVENESS. CALL LIGHT IN REACH.
--- NOTE | 2020-01-18 17:17 | NUR ---
VALERIO EFFECTIVE PER PT.
--- NOTE | 2020-01-18 18:36 | NUR ---
PT GIVEN MORPHINE AT THIS TIME FOR BACK PAIN. WILL MONITOR FOR EFFECTIVENESS.
[2020-01-18 20:00] VITALS: BP 162/92
--- NOTE | 2020-01-18 20:25 | NUR ---
PATIENT MEDICATED WITH NORCO FOR COMPLAINTS OF BACK PAIN. WILL MONITOR FOR EFFECTIVENESS.
--- NOTE | 2020-01-18 23:03 | NUR ---
MEDICATED WITH MORPHINE FOR COMPLAINTS OF BACK PAIN.
--- NOTE | 2020-01-18 23:03 | NUR ---
IV MORPHINE ADMINISTERED FOR C/O NECK/BACK/HIP PAIN RATED 9/10. WILL MONITOR EFFECTIVENESS. CALL LIGHT IN REACH.
[2020-01-19] VITALS: BP 136/83
--- NOTE | 2020-01-19 02:41 | NUR ---
MEDICATED WITH NORCO FOR COMPLAINTS OF BACK PAIN.
--- NOTE | 2020-01-19 05:05 | NUR ---
MEDICATED WITH MORPHINE FOR COMPLAINTS OF BACK PAIN.
[2020-01-19 06:24] LABS: BASO % 0.2 % (0.0-1.0); HEMATOCRIT 31.7 % (37.0-47.0); LYMPH # 1.6 10*3/uL (1.3-4.4); LYMPH % 12.3 % (27.0-41.0); MEAN CELL VOLUME 95.2 fl (81.0-99.0); MEAN CORPUSCULAR HGB 30.6 pg (27.0-31.0); MEAN CORPUSCULAR HGB CONC 32.2 g/dl (33.0-37.0); MEAN PLATELET VOLUME 9.6 fl (9.6-12.3); MONO # 0.9 10*3/uL (0.1-1.0); MONO % 6.8 % (3.0-9.0); NEUT # 10.6 10*3/uL (2.3-7.9); NEUT % 79.9 % (47.0-73.0); PLATELET COUNT AUTOMATED 331 10*3/uL (130-400); RED BLOOD COUNT 3.33 10*6/uL (4.10-5.10); RED CELL DISTRI WIDTH 14.5 % (0-14.5); WHITE BLOOD COUNT 13.3 10*3/uL (4.8-10.8)
[2020-01-19 08:00] VITALS: BP 156/86
--- NOTE | 2020-01-19 09:00 | NUR ---
case management attempted to visit with patient, she was out of room for MRI, she will return home when discharged, will follow for any discharge needs
--- NOTE | 2020-01-19 10:31 | NUR ---
MORPHINE GIVEN FOR C/O BACK PAIN. RATES 10/10 ON PAIN SCALE. WILL MONITOR.
--- NOTE | 2020-01-19 11:35 | NUR ---
MORPHINE EFFECTIVE PER PT.
--- NOTE | 2020-01-19 12:32 | NUR ---
NORCO GIVEN FOR C/O BACK PAIJN. RATES 9/10 ON PAIN SCALE. WILL MONITOR.
--- NOTE | 2020-01-19 13:40 | NUR ---
NORCO HELPING, NOT FULLY EFFECTIVE PER PT. WILL MONITOR.
[2020-01-19 16:00] VITALS: BP 140/90
--- NOTE | 2020-01-19 17:09 | NUR ---
NORCO GIVEN FOR C/O BACK PAIN. RATES 10/10 ON PAIN SCALE. WILL MONITOR.
--- NOTE | 2020-01-19 18:10 | NUR ---
VALERIO HELPING. NOT FULLY EFFECTIVE PER PT.
--- NOTE | 2020-01-19 18:41 | NUR ---
MORPHINE GIVEN FOR C/O BACK PAIN. RATES 10/10 ON APIN SCALE. WILL CONTINE TO MONITOR.
[2020-01-19 20:00] VITALS: BP 145/95
--- NOTE | 2020-01-19 21:21 | NUR ---
PATIENT MEDICATED WITH NORCO FOR COMPLAINTS OF BACK PAIN. WILL MONITOR FOR EFFECTIVENESS.
--- NOTE | 2020-01-19 22:12 | NUR ---
MEDICATED WITH NORCO FOR COMPLAINTS OF BACK PAIN. WILL MONITOR FOR EFFECTIVENESS.
[2020-01-20] VITALS: BP 125/84
--- NOTE | 2020-01-20 01:20 | NUR ---
PATIENT MEDICATED WITH MORPHINE FOR COMPLAINTS OF BACK PAIN. WILL MONITOR FOR EFFECTIVENESS.
--- NOTE | 2020-01-20 01:45 | NUR ---
MORPHINE EFFECTIVE. PATIENT IN BED SLEEPING AT THIS TIME. NO SIGNS OR SYMPTOMS OF DISTRESS NOTED. CALL LIGHT IN REACH.
[2020-01-20 08:00] VITALS: BP 154/90
--- NOTE | 2020-01-20 09:00 | NUR ---
GAVE PATIENT MORPHINE FOR FOR BACKPAIN PERSCRIBED, PATIENT REPORTED SOME RELIEF.
--- NOTE | 2020-01-20 11:13 | NUR ---
GAVE PATIENT NORCO PERSCRIBED FOR PAIN. PATIENT REPORTED RELIEF.
[2020-01-20 12:00] VITALS: BP 151/92
--- NOTE | 2020-01-20 15:29 | NUR ---
Pt complained of pain, medicated as ordered. Pain rated 9/10, back pain. Skin warm and dry. Pt verbalized relief of pain. Pt is sitting at bed side watching televison. Pts respirations even and steady. No noted distress at this time.
[2020-01-20 16:00] VITALS: BP 158/89
--- NOTE | 2020-01-20 18:03 | NUR ---
Patient continues to have back pain. Medicated as ordered. Verbalized relief. Playing on phone in bed.
--- NOTE | 2020-01-20 19:53 | NUR ---
PATIENT MEDICATED WITH MORPHINE FOR C/O LOWER BACK/BL HIP PAIN 01/05. WILL MONITOR
[2020-01-20 20:00] VITALS: BP 161/97
--- NOTE | 2020-01-20 20:17 | NUR ---
PER PATIENT MORPHINE EFFECTIVE FOR A SHORT PERIOD OF TIME.
--- NOTE | 2020-01-20 21:17 | NUR ---
MADE AWARE THAT PATIENT STATED MORPHINE ONLY HELPED VERY LITTLE BUT HAS WORN OFF AT THIS TIME. PATIENT IS TEARFUL STATES PAIN IS 10/10 TO BACK/BLE. PATIENT IS NOT DUE FOR PAIN MEDICATION UNTIL 2200. DOCTOR STATES SHE WILL PLACE AN ORDER
--- NOTE | 2020-01-20 21:28 | NUR ---
PATIENT MEDICATED WITH X1 DOSE OF DILAUDID FOR C/O 10/10 PAIN TO BACK/BLE. WILL MONITOR
--- NOTE | 2020-01-20 21:53 | NUR ---
MORHPINE SOMEWHAT EFFECTIVE
[2020-01-21] VITALS: BP 135/78
--- NOTE | 2020-01-21 00:19 | NUR ---
PRN VALERIO GIVEN FOR PT COMPLAINTS OF 10/10 BACK,LEG,KNEE AND "YOU NAME IT, I HAVE IT PAIN". CALL LIGHT WITHIN REACH, WILL MONITOR
--- NOTE | 2020-01-21 02:51 | NUR ---
PATIENT MEDICATED WITH MORPHINE FOR C/O BACK/BLE PAIN 02/04. WILL MONITOR
--- NOTE | 2020-01-21 04:19 | NUR ---
PATIENT MEDICATED WITH ZOFRAN FOR C/O NAUSEA. WILL MONITOR
--- NOTE | 2020-01-21 05:52 | NUR ---
PATIENT MEDICATED WITH NORCO FOR C/O BACK/BL HIP PAIN 12/05. [facility] MONITOR
--- NOTE | 2020-01-21 07:46 | NUR ---
PT MEDICATED WITH NORCO AT THIS TIME FOR COMPLAITNS OF CONTINUING BACK PAIN 02/04. WILL MONITOR FOR EFFECTIVENESS.
[2020-01-21 08:00] VITALS: BP 117/69
--- NOTE | 2020-01-21 08:46 | NUR ---
PER PATIENT, PRN MEDICATION HAS BEEN EFFECTIVE. RELAXED AT THIS TIME.
[2020-01-21 12:00] VITALS: BP 134/83
--- NOTE | 2020-01-21 13:16 | NUR ---
PATIENT MEDICATED WITH IV MORPHINE AT THIS TIME PER ORDER FOR C/O BACK PAIN 01/05. WILL MONITOR FOR EFFECTIVENESS.
--- NOTE | 2020-01-21 14:16 | NUR ---
PER PATIENT, MORPHINE HAS BEEN EFFECTIVE. MORE RELAXED AT THIS TIME.
--- NOTE | 2020-01-21 15:49 | NUR ---
NORCO GIVEN PER PT REQUEST FOR C/O BACK PAIN. PAIN RATED 8/10 AT THIS TIME. PAIN DESCRIBED A SHARP, STABBING PAIN. CALL LIGHT WITHIN REACH.
[2020-01-21 16:00] VITALS: BP 142/78
--- NOTE | 2020-01-21 16:25 | NUR ---
NORCO SLIGHTLY EFFECTIVE. PATIENT STILL REPORTS PAIN AT THIS TIME. WILL CONTINUE TO MONITOR AND REASSESS.
--- NOTE | 2020-01-21 17:38 | NUR ---
PERCOCET GIVEN PER PT REQUEST FOR BACK PAIN RATED 8/10. PAIN STILL DESCRIBED SHARP, STABBING. WILL CONTINUE TO MONITOR AND REASSESS.
--- NOTE | 2020-01-21 18:30 | NUR ---
PERCOCET SLIGHTLY EFFECTIVE PER PT. PATIENT STILL REPORTS PAIN A /10. NO S/S OF DISTRESS NOTED. WILL CONTINUE TO MONITOR.
--- NOTE | 2020-01-21 19:15 | NUR ---
PATIENT RESTING IN BED CO CHRONIC BACK/HIP/LEG PAIN RATED A 10/10. DENIES ANY OTHER COMPLAINTS. ASSESSMENT COMPLETE. RESPS EASY AND REGULAR. CALLL LIGHT IN REACH.
--- NOTE | 2020-01-21 19:17 | NUR ---
MEDICATED WITH PRN MORPHINE FOR CO BACK PAIN/HIP PAIN/LEG PAIN PER PATIENT RATED A 10/10. WILL ASSESS EFFECTIVENESS. CALL LIGHT WITHIN REACH.
--- NOTE | 2020-01-21 19:30 | NUR ---
24 HR chart check completed.
[2020-01-21 20:00] VITALS: BP 161/89
[2020-01-22] VITALS: BP 115/72
--- NOTE | 2020-01-22 02:15 | NUR ---
MEDICATED WITH PRN MORPHINE FOR CO BACK PAIN RATED A 10/10. WILL ASSESS EFFECTIVENESS.
--- NOTE | 2020-01-22 03:15 | NUR ---
PATIENT SLEEPING, RESPS EASY AND REGULAR. MORPHINE APPEARS TO BE EFFECTIVE.
--- NOTE | 2020-01-22 07:40 | NUR ---
PT MEDICATED WITH IV MORPHINE PER PRN ORDER FOR C/O BACK PAIN. RATES PAIN 02/04. WILL MONITOR EFFECTIVENESS.
[2020-01-22 08:00] VITALS: BP 147/88
--- NOTE | 2020-01-22 08:40 | NUR ---
MORPHINE RELIEVING PAIN PER PT. WILL CONTINUE TO MONITOR.
--- NOTE | 2020-01-22 09:44 | NUR ---
ID'S ANSWERING SERVICE NOTIFIED OF CONSULT.
--- NOTE | 2020-01-22 11:11 | NUR ---
DARLING GALVAN FROM ID RETURNED CALL. NEW ORDERS RECEIVED.
[2020-01-22 12:00] VITALS: BP 128/78
--- NOTE | 2020-01-22 13:12 | NUR ---
PT MEDICATED WITH IV MORPHINE PER PRN ORDER FOR C/O BACK PAIN. RATES PAIN 10/. CHRONIC PAIN PER PT. WILL MONITOR EFFECTIVENESS.
--- NOTE | 2020-01-22 14:12 | NUR ---
MORPHINE RELIEVING PAIN PER PT. WILL CONTINUE TO MONITOR.
--- NOTE | 2020-01-22 15:59 | NUR ---
NORCO GIVEN PER PRN ORDER FOR C/O BACK PAIN. RATES PAIN 8/10. WILL MONITOR EFFECTIVENESS.
[2020-01-22 16:00] VITALS: BP 117/71
--- NOTE | 2020-01-22 16:59 | NUR ---
NORCO RELIEVING PAIN PER PT. WILL CONTINUE TO MONITOR.
--- NOTE | 2020-01-22 17:07 | NUR ---
PT MEDICATED WITH IV MORPHINE PER PRN ORDER FOR C/O BACK PAIN RADIATING TOWARDS HER RIGHT SHOULDER. RATES PAIN 12/05. WILL MONITOR EFFECTIVENESS.
--- NOTE | 2020-01-22 18:07 | NUR ---
MORPHINE RELIEVING PAIN PER PT. WILL CONTINUE TO MONITOR.
--- NOTE | 2020-01-22 19:30 | NUR ---
TOOK OVER CARE OF PT AT THIS TIME. PT RESTING IN BED. RESPIRATIONS UNLABORED ON ROOM AIR. NO SHORTNESS OF BREATH NOTED. PT COMPLAINS OF BACK PAIN. WILL MEDICATE PT WHEN MEDICATION DUE. WILL CONTINUE TO MONITOR. CALL LIGHT IN REACH.
[2020-01-22 20:13] VITALS: BP 168/97
--- NOTE | 2020-01-22 20:38 | NUR ---
PT GIVEN NORCO AT THIS TIME FOR C/O BACK PAIN. WILL MONITOR FOR EFFECTIVENESS. CALL LIGHT IN REACH.
--- NOTE | 2020-01-22 21:15 | NUR ---
PT STATES THAT NORCO IS ONLY SOMEWHAT EFFECTIVE. PT REQUESTS MORPHINE AT THIS TIME. WHILE GIVING MORPHINE, PT IV SITE IS FOUND TO BE LEAKING. WILL ATTEMPT NEW IV SITE AT THIS TIME.
--- NOTE | 2020-01-22 21:43 | NUR ---
DR FLORES NOTIFIED THAT PT IV SITE TO RIGHT ANTECUBITAL WAS LOST WHILE INJECTING PRN DOSE OF 2 MG IV MORPHINE. PT STATES THAT SHE DOES NOT FEEL SHE RECEIVED ANY OF THE MORPHINE FOR HER BACK PAIN. NEW ORDERS RECEIVED FOR 1 MG IV MORPHINE X 1 NOW. WILL MEDICATE PT WHEN ANOTHER IV SITE IS OBTAINED. WILL NOTIFY PATIENT.
--- NOTE | 2020-01-22 22:50 | NUR ---
PT GIVEN MORPHINE AT THIS TIME PER PHYSICIAN ORDERS, DUE TO COMPLAINTS OF BACK PAIN. WILL MONITOR FOR EFFECTIVENESS. PT NEW IV SITE TO RIGHT HAND FLUSHING WITH EASE, BLOOD RETURN NOTED. CALL LIGHT IN REACH.
--- NOTE | 2020-01-22 23:50 | NUR ---
PT STATES THAT MORPHINE IS EFFECTIVE.
--- NOTE | 2020-01-22 23:59 | NUR ---
PT GIVEN ZOFRAN AT THIS TIME FOR C/O NAUSEA. WILL MONITOR FOR EFFECTIVENESS. CALL LIGHT IN REACH.
[2020-01-23] VITALS: BP 123/78
--- NOTE | 2020-01-23 00:59 | NUR ---
PT STATES THAT ZOFRAN IS EFFECTIVE.
--- NOTE | 2020-01-23 03:50 | NUR ---
PT GIVEN MORPHINE FOR C/O BACK PAIN. RATES PAIN 01/05. WILL MONITOR FOR EFFECTIVENESS. CALL LIGHT IN REACH.
[2020-01-23 06:02] LABS: CREATININE 0.74 mg/dL (0.55-1.02)
[2020-01-23 06:07] LABS: MEAN CORPUSCULAR HGB CONC 31.6 g/dl (33.0-37.0); MEAN PLATELET VOLUME 9.7 fl (9.6-12.3); PLATELET COUNT AUTOMATED 318 10*3/uL (130-400); RED BLOOD COUNT 3.37 10*6/uL (4.10-5.10); RED CELL DISTRI WIDTH 14.6 % (0-14.5)
[2020-01-23 06:40] LABS: PLATELET SUFFICIENCY NORMAL (NORMAL); TOTAL CELLS COUNTED 100 #CELLS
[2020-01-23 08:00] VITALS: BP 118/68
--- NOTE | 2020-01-23 08:44 | NUR ---
DILAUDID 1MG GIVEN SLOWLY PER ORDER FOR C/O BACK PAIN. RATES PAIN 01/05. WILL MONITOR EFFECTIVENESS.
--- NOTE | 2020-01-23 09:44 | NUR ---
IV DILAUDID RELIEVING PAIN PER PT. WILL CONTINUE TO MONITOR.
[2020-01-23 12:00] VITALS: BP 138/82
--- NOTE | 2020-01-23 14:36 | NUR ---
PT MEDICATED WITH IV DILAUDID SLOWLY PER PRN ORDER FOR C/O BACK PAIN. RATES PAIN 12/05. WILL MONITOR EFFECTIVENESS.
--- NOTE | 2020-01-23 15:36 | NUR ---
IV DILAUDID EFFECTIVE PER PT. WILL CONTINUE TO MONITOR.
[2020-01-23 16:00] VITALS: BP 132/84
--- NOTE | 2020-01-23 19:25 | NUR ---
PT AWAKE WALKING IN ROOM. BREATHING TX COMPLETE. PT IS CURRENTLY ON ROOM AIR. PT DENIES ANY NEEDS AT PRESENT TIME. WILL MONITOR. CALL LIGHT IN REACH.
[2020-01-23 20:00] VITALS: BP 159/85
--- NOTE | 2020-01-23 20:28 | NUR ---
IV DILAUDID GIVEN FOR PT C/O BACK PAIN RATED "10 PLUS" OUT OF 10. WILL MONITOR EFFECTIVENESS. CALL LIGHT IN REACH.
--- NOTE | 2020-01-23 21:20 | NUR ---
EARLIER MEDICATION HELPED SOME PER PT. WILL MONITOR. CALL LIGHT IN REACH.
[2020-01-23 22:30] VITALS: BP 127/68
--- NOTE | 2020-01-23 22:35 | NUR ---
PO VALERIO REQUESTED AND RECEIVED FOR C/O BACK PAIN RATED 9/10. PT STATES PAIN SHOOTING DOWN LEFT LEG WELL. WILL MONITOR. CALL LIGHT IN REACH. VSS AT PRESENT TIME.
--- NOTE | 2020-01-24 00:31 | NUR ---
PT ASLEEP IN BED. PT VERY DROWSY, BUT AROUSES TO VERBAL/TACTILE STIMULI. PT HAD NC OUT OF NOSE. POX 88% ON ROOM AIR. O2 REAPPLIED AT 3L NC. POX BACK UP TO 94% AND ABOVE. SCHEDULED PERCOCET HELD AT THIS TIME DUE TO DROWSINESS. NO S/S OF DISTRESS NOTED. WILL MONITOR. CALL LIGHT IN REACH.
[2020-01-24 01:20] VITALS: BP 141/81
[2020-01-24 03:15] VITALS: BP 157/88
--- NOTE | 2020-01-24 03:16 | NUR ---
IV DILAUDID ADMINISTERED FOR C/O BACK & SIDE PAIN RATED 10/10. PT MUCH MORE AWAKE AT THIS TIME. WILL MONITOR. CALL LIGHT IN REACH.
--- NOTE | 2020-01-24 04:05 | NUR ---
EARLIER DILAUDID APPEARS EFFECTIVE. PT SLEEPING. NO S/S OF DISTRESS NOTED. WILL MONITOR. CALL LIGHT IN REACH.
[2020-01-24 06:20] LABS: HEMATOCRIT 36.4 % (37.0-47.0); MEAN CELL VOLUME 97.1 fl (81.0-99.0); MEAN CORPUSCULAR HGB 30.1 pg (27.0-31.0); MEAN PLATELET VOLUME 9.9 fl (9.6-12.3); PLATELET COUNT AUTOMATED 374 10*3/uL (130-400); RED BLOOD COUNT 3.75 10*6/uL (4.10-5.10); RED CELL DISTRI WIDTH 14.8 % (0-14.5); WHITE BLOOD COUNT 22.8 10*3/uL (4.8-10.8)
--- NOTE | 2020-01-24 06:20 | NUR ---
MEDICATED WITH ROUTINE PERCOCET.
[2020-01-24 06:29] LABS: BUN 18 mg/dl (7-24); CHLORIDE 98 mmol/L (98-107); CREATININE 0.69 mg/dL (0.55-1.02); POTASSIUM 3.4 mmol/L (3.5-5.1); SODIUM 136 mmol/L (136-145)
[2020-01-24 07:13] LABS: PLATELET SUFFICIENCY NORMAL (NORMAL); TOTAL CELLS COUNTED 100 #CELLS
[2020-01-24 08:00] VITALS: BP 148/83
--- NOTE | 2020-01-24 08:27 | NUR ---
PRN PO NORCO SOMEWHAT EFFECTIVE FOR BACK PAIN, PER PATIENT. MEDICATED AT THIS TIME WITH PRN IV DILAUDID FOR PERSISTANT BACK PAIN.
--- NOTE | 2020-01-24 08:34 | NUR ---
MEDICATED WITH PRN PO NORCO FOR MID TO LOWER BACK/LEFT BOTTOCK AND LEFT LEG PAIN.
--- NOTE | 2020-01-24 09:00 | NUR ---
patient will return home when discharged, denies any home needs, case management will follow
--- NOTE | 2020-01-24 10:03 | NUR ---
PRN IV DILAUDID EFFECTIVE, PER PATIENT.
--- NOTE | 2020-01-24 15:30 | NUR ---
MEDICATED WITH PRN IV DILAUDID FOR BACK PAIN AT THIS TIME.
--- NOTE | 2020-01-24 16:20 | NUR ---
PRN IV DILAUDID EFFECTIVE, PER PATIENT.
[2020-01-24 20:00] VITALS: BP 149/78
--- NOTE | 2020-01-24 23:00 | NUR ---
PLACED PATIENT ON NOCTURNAL PULSE OX FOR THE NIGHT. PATIENT CURRENTLY ON ROOM AIR
--- NOTE | 2020-01-24 23:19 | NUR ---
PT SITTING 87-89% ON ROOM AIR. PT DROPPED LOW 82% WITH MOVEMENT IN BED. SPOKE TO RESPIRATORY REGARDING NOCTURNAL PULSE OX. INSTRUCTED TO APPLY O2 @ 2L NC. O2 APPLIED. POX 93% AND ABOVE AT THIS TIME. PT ENCOURAGED TO USE CALL LIGHT IF UNIT ALARMS.
--- NOTE | 2020-01-24 23:19 | NUR ---
RN REPORTED PATIENT DESATED TO 86%. PATIENT PLACED ON 2LNC. WILL CONTINUE TO MONITOR
[2020-01-25] VITALS: BP 133/75
--- NOTE | 2020-01-25 02:20 | NUR ---
PT UP TO BATHROOM. DESATTED INTO 70S WHEN UP. PT ENCOURAGED TO DEEP BREATHE. POX UP TO 92% AND ABOVE. WILL MONITOR. CALL LIGHT IN REACH.
--- NOTE | 2020-01-25 02:37 | NUR ---
PT ASLEEP IN BED. POX 95% AT THIS TIME. WILL MONITOR. CALL LIGHT IN REACH.
--- NOTE | 2020-01-25 03:41 | NUR ---
PT ASLEEP IN BED. POX CURRENTLY 93% ON 2L NC. NO S/S OF DISTRESS NOTED. WILL MONITOR. CALL LIGHT IN REACH.
--- NOTE | 2020-01-25 04:49 | NUR ---
PT AGAIN GOT UP TO USE BATHROOM. DESATS INTO HIGH 70S-LOW 80S WHEN UP. PT RECOVERS QUICKLY WHEN RN ENCOURAGES PT TO STOP MOVEMENT AND TAKE DEEP BREATHS. RESPIRATORY NOTIFIED. WILL MONITOR. POX CURRENTLY 92% AND ABOVE ON 2L NC.
--- NOTE | 2020-01-25 07:57 | NUR ---
MEDICATED WITH PRN IV DILAUDID FOR C/O BACK/SIDES/HIPS PAIN.
[2020-01-25 08:00] VITALS: BP 153/91
--- NOTE | 2020-01-25 08:30 | NUR ---
PRN IV DILAUDID EFFECTIVE, PER PATIENT.
--- NOTE | 2020-01-25 08:51 | NUR ---
ASSESSED PATIENT FOR HOME O2. [facility] SPO2 WAS 86% AT REST ON 2 L/M HR 107 BP 155/72. O2 WAS TURNED OFF AND PATIENT RADILY DESATURATED TO 82% AT REST. PATIENT WAS PLACED ON 3L FOR AMBULATION, SATURATION RANGED FROM 89-90% PATINET INCREASED TO 4L THEN EVENTUALLY TO 6L TO MAINTAIN A SATURATION BETWEEN 90-92% WHILE AMBULATING. POST AMBULATION AT REST PATIENT WAS LEFT ON 4L SPO2 96% HR 118 BP 120/70. BEVERLEY VILLALPANDO AND JER STEELE CNP NOTIFIED OF RESULTS.
--- NOTE | 2020-01-25 09:30 | NUR ---
case management received a message that patient has qualified for 24 hour oxygen for home, she has a concentrator but no portable tanks from [facility]. case management contacted [facility], spoke to Vicki. she stated patient had to switch DME companied due to her insurance and now has Medical services. case management contacted Medical services and spoke to Chano. case management faxed patient's information along with the script for oxygen. poratble tanks will be delivered to the hospital today. case management will follow.
[2020-01-25] MEDS ORDERED: PERCOCET 10-321 EACH PO (10:07)
[2020-01-25] MEDS ORDERED: AMOXICILLIN500 M2 PO (10:12)
[2020-01-25] MEDS ORDERED: PREDNISONE10 MG PO (10:15)
--- NOTE | 2020-01-25 10:15 | NUR ---
DISCHARGE ORDERS ARE ENTERED. AWAITING DELIVERY OF PORTABLE O2 PRIOR TO DISCHARGE TODAY.
--- NOTE | 2020-01-25 11:11 | NUR ---
Discharge instructions reviewed with patient. Patient receptive and verbalizes understanding. Follow-up care arranged. Written instructions given to patient. PER CASE MANAGEMENT, PORTABLE O2 TANK TO BE DELIVERED TODAY BEFORE PATIENT GOES HOME. BEVERLEY MCKINNEY
--- NOTE | 2020-01-25 11:30 | NUR ---
PHYSICAL THERAPY Patient was approached for therapy this AM and she said she didnt want therapy because she is being discharged to home. [facility] [employer] [employer]
[2020-01-25 12:00] VITALS: BP 147/73
--- NOTE | 2020-01-25 13:59 | NUR ---
MEDICATED WITH PRN PO TYLENOL FOR BACK PAIN.
--- NOTE | 2020-01-25 14:01 | NUR ---
PATIENT IS WAITING FOR PORTABLE O2 DELIVERY TO HER ROOM FOR DISCHARGE. PER CASE MANAGEMENT, THERE THE O2 WILL BE DELIVERED SOMETIME BETWEEN NOW AND 6PM FROM A COMPANY IN [place], [place]. PATIENT STATES SHE IS NOT WAITING MUCH LONGER AND IS LEAVING AFTER SHE FINISHES LUNCH AND THAT SHE WILL COME BACK HERE AND GET THE TANK TOMORROW. SHE STATES SHE HAS OXYGEN AT HOME.
--- NOTE | 2020-01-25 14:12 | NUR ---
PATIENT LEFT WITHOUT PORTABLE O2 DELIVERY BY WHEELCHAIR TO [facility], FOR TRANSPORT HOME WITH HER DAUGHTER. SHELL STEELE NOTIFIED.
--- NOTE | 2020-01-26 11:37 | NUR ---
PHYSICAL THERAPY CO-SIGN I approve of the Physical Therapy notes written above. YEYO MARIE PT, DPT
== END 2020-01-25 14:12 | disposition home or self-care (01) | DRG 720 ==
LOC: ED 10:34 → 4E 12:47 → EDHOLD 12:47 → 4E 12:53 → 5E 01-21 18:21
PROVIDERS: Emergency Medicine; Internal Medicine; Internal Medicine Critical Care Medicine; Student in an Organized Health Care Education/Training Program; ADMIT Student in an Organized Health Care Education/Training Program; ATTEND Student in an Organized Health Care Education/Training Program
DX: A41.9 Sepsis, unspecified organism (principal); J44.1 Chronic obstructive pulmonary disease with (acute) exacerbation; D64.9 Anemia, unspecified; D47.3 Essential (hemorrhagic) thrombocythemia; M81.0 Age-related osteoporosis without current pathological fracture; F17.210 Nicotine dependence, cigarettes, uncomplicated; M54.5 Low back pain; N30.00 Acute cystitis without hematuria; F32.9 Major depressive disorder, single episode, unspecified; F41.1 Generalized anxiety disorder; E78.5 Hyperlipidemia, unspecified; J20.9 Acute bronchitis, unspecified; J44.0 Chronic obstructive pulmonary disease with (acute) lower respiratory infection; B95.2 Enterococcus as the cause of diseases classified elsewhere; J96.21 Acute and chronic respiratory failure with hypoxia; S22.070A Wedge compression fracture of T9-T10 vertebra, initial encounter for closed fracture; I10 Essential (primary) hypertension; X58.XXXA Exposure to other specified factors, initial encounter; Z20.828 Contact with and (suspected) exposure to other viral communicable diseases; Y93.89 Activity, other specified; Y92.89 Other specified places as the place of occurrence of the external cause; Y99.8 Other external cause status; Z79.51 Long term (current) use of inhaled steroids; Z79.899 Other long term (current) drug therapy; Z88.1 Allergy status to other antibiotic agents; Z88.8 Allergy status to other drugs, medicaments and biological substances; Z90.710 Acquired absence of both cervix and uterus

== ENCOUNTER 2020-01-25 23:39 | Emergency (ER) | payer OTHER ==
[~2020-01-25] VITALS: Ht 167.6 cm; Wt 60.8 kg
[~2020-01-25 23:39] MED LIST changes: +AMOXICILLIN500 M2 PO; +PERCOCET 10-321 EACH PO
== END 2020-01-26 02:04 | disposition home or self-care (01) ==
LOC: ED 23:39
DX: S01.81XA Laceration without foreign body of other part of head, initial encounter (principal); W06.XXXA Fall from bed, initial encounter; Y93.89 Activity, other specified; Y92.89 Other specified places as the place of occurrence of the external cause; Y99.8 Other external cause status

== ENCOUNTER 2020-01-27 11:43 | Inpatient (IN) | payer OTHER ==
[~2020-01-27] VITALS: Ht 160 cm; Wt 59.1 kg
[2020-01-27 11:50] VITALS: BP 98/62
[2020-01-27 12:11] LABS: BASO % 0.2 % (0.0-1.0); EOS # 0.2 10*3/uL (0.0-0.4); EOS % 0.8 % (1.0-4.0); HEMATOCRIT 29.7 % (37.0-47.0); LYMPH # 2.3 10*3/uL (1.3-4.4); LYMPH % 12.6 % (27.0-41.0); MEAN CELL VOLUME 95.8 fl (81.0-99.0); MEAN CORPUSCULAR HGB 30.3 pg (27.0-31.0); MEAN CORPUSCULAR HGB CONC 31.6 g/dl (33.0-37.0); MEAN PLATELET VOLUME 9.6 fl (9.6-12.3); MONO # 1.1 10*3/uL (0.1-1.0); NEUT # 14.6 10*3/uL (2.3-7.9); NEUT % 79.7 % (47.0-73.0); PLATELET COUNT AUTOMATED 366 10*3/uL (130-400); RED CELL DISTRI WIDTH 15.3 % (0-14.5); WHITE BLOOD COUNT 18.4 10*3/uL (4.8-10.8)
[2020-01-27 12:22] LABS: ACT PARTIAL THROMBO TIME 25.9 SECONDS (20.0-32.1); INTERNATIONAL NORM RATIO 0.9 (2.0-3.5)
[2020-01-27 12:37] LABS: ALBUMIN 2.6 gm/dl (3.1-4.5); CREATININE 1.34 mg/dL (0.55-1.02); POTASSIUM 4.6 mmol/L (3.5-5.1); TOTAL PROTEIN 6.5 gm/dL (6.4-8.2)
[2020-01-27 12:39] LABS: TROPONIN I 0.021 ng/ml (<0.045)
[2020-01-27 14:13] VITALS: BP 119/79
[2020-01-27 17:22] LABS: BILIRUBIN Negative (Negative); BLOOD Negative (Negative); CLARITY Clear (Clear); COLOR Yellow (Yellow); GLUCOSE Negative (Negative); KETONE Negative (Negative); LEUKO ESTERASE Negative (Negative); NITRITE Negative (Negative); SPECIFIC GRAVITY <= 1.005 (1.001-1.030); UROBILINOGEN 0.2 E.U./dl (0.0-1.0)
[2020-01-27 17:28] LABS: BACTERIA TRACE; WBC 0-2 wbc/hpf (0-5)
[2020-01-27 19:32] LABS: ARTERIAL BLOOD GAS PH 7.381 (7.35-7.45)
[2020-01-27 20:00] VITALS: BP 144/66
[2020-01-28] VITALS (7 sets, daily range): BP systolic 100–174; BP diastolic 40–93
[2020-01-28 05:23] LABS: ALBUMIN 2.2 gm/dl (3.1-4.5); ALKALINE PHOSPHATASE 99 U/L (45-117); CHLORIDE 103 mmol/L (98-107); CREATININE 0.67 mg/dL (0.55-1.02); LDH 510 U/L (84-246); POTASSIUM 5.4 mmol/L (3.5-5.1); SGOT/AST 24 IU/L (3-35); SGPT/ALT 37 U/L (12-78); SODIUM 132 mmol/L (136-145); TOTAL PROTEIN 6.1 gm/dL (6.4-8.2)
[2020-01-28 05:25] LABS: BUN 18 mg/dl (7-24)
[2020-01-28 07:59] LABS: HEMATOCRIT 27.7 % (37.0-47.0); MEAN CELL VOLUME 95.2 fl (81.0-99.0); MEAN CORPUSCULAR HGB 30.2 pg (27.0-31.0); MEAN CORPUSCULAR HGB CONC 31.8 g/dl (33.0-37.0); MEAN PLATELET VOLUME 9.7 fl (9.6-12.3); PLATELET COUNT AUTOMATED 371 10*3/uL (130-400); RED BLOOD COUNT 2.91 10*6/uL (4.10-5.10); RED CELL DISTRI WIDTH 14.6 % (0-14.5); WHITE BLOOD COUNT 15.9 10*3/uL (4.8-10.8)
[2020-01-28 08:15] LABS: ABG BASE EXCESS 5.6 mmol/L (-2.0-2.0); ARTERIAL BLOOD GAS PH 7.396 (7.35-7.45)
[2020-01-28 08:35] LABS: PLATELET SUFFICIENCY NORMAL (NORMAL); TOTAL CELLS COUNTED 100 #CELLS
[2020-01-29 04:00] VITALS: BP 145/82
[2020-01-29 06:31] LABS: BASO % 0.1 % (0.0-1.0); EOS % 0.1 % (1.0-4.0); HEMATOCRIT 31.6 % (37.0-47.0); LYMPH # 1.5 10*3/uL (1.3-4.4); LYMPH % 7.4 % (27.0-41.0); MEAN CELL VOLUME 95.5 fl (81.0-99.0); MEAN CORPUSCULAR HGB 29.9 pg (27.0-31.0); MEAN CORPUSCULAR HGB CONC 31.3 g/dl (33.0-37.0); MEAN PLATELET VOLUME 9.7 fl (9.6-12.3); MONO # 0.9 10*3/uL (0.1-1.0); MONO % 4.2 % (3.0-9.0); NEUT # 18.2 10*3/uL (2.3-7.9); NEUT % 87.7 % (47.0-73.0); PLATELET COUNT AUTOMATED 458 10*3/uL (130-400); RED BLOOD COUNT 3.31 10*6/uL (4.10-5.10); RED CELL DISTRI WIDTH 14.6 % (0-14.5); WHITE BLOOD COUNT 20.8 10*3/uL (4.8-10.8)
[2020-01-29 06:49] LABS: ALBUMIN 2.3 gm/dl (3.1-4.5); ALKALINE PHOSPHATASE 100 U/L (45-117); BUN 15 mg/dl (7-24); CHLORIDE 101 mmol/L (98-107); CREATININE 0.58 mg/dL (0.55-1.02); LDH 465 U/L (84-246); SGOT/AST 23 IU/L (3-35); SGPT/ALT 33 U/L (12-78); SODIUM 133 mmol/L (136-145); TOTAL PROTEIN 6.2 gm/dL (6.4-8.2)
[2020-01-29 08:00] VITALS: BP 163/85
[2020-01-29 08:46] LABS: ARTERIAL BLOOD GAS PH 7.438 (7.35-7.45)
[2020-01-29 12:00] VITALS: BP 152/83
[2020-01-29 16:00] VITALS: BP 176/83
[2020-01-29 20:00] VITALS: BP 167/93
[2020-01-30] VITALS: BP 144/77
[2020-01-30 04:00] VITALS: BP 141/71
[2020-01-30 06:11] LABS: BASO % 0.1 % (0.0-1.0); EOS % 0.2 % (1.0-4.0); HEMATOCRIT 31.4 % (37.0-47.0); LYMPH # 1.8 10*3/uL (1.3-4.4); LYMPH % 11.7 % (27.0-41.0); MEAN CELL VOLUME 94.3 fl (81.0-99.0); MEAN CORPUSCULAR HGB CONC 31.8 g/dl (33.0-37.0); MEAN PLATELET VOLUME 9.3 fl (9.6-12.3); MONO # 0.8 10*3/uL (0.1-1.0); MONO % 5.2 % (3.0-9.0); NEUT # 12.3 10*3/uL (2.3-7.9); NEUT % 82.3 % (47.0-73.0); PLATELET COUNT AUTOMATED 456 10*3/uL (130-400); RED BLOOD COUNT 3.33 10*6/uL (4.10-5.10); RED CELL DISTRI WIDTH 14.7 % (0-14.5)
[2020-01-30 06:15] LABS: ALBUMIN 2.6 gm/dl (3.1-4.5); ALKALINE PHOSPHATASE 104 U/L (45-117); BUN 16 mg/dl (7-24); CHLORIDE 97 mmol/L (98-107); LDH 438 U/L (84-246); SGOT/AST 9 IU/L (3-35); SGPT/ALT 29 U/L (12-78); SODIUM 134 mmol/L (136-145); TOTAL PROTEIN 6.5 gm/dL (6.4-8.2)
[2020-01-30 06:21] LABS: POTASSIUM 3.8 mmol/L (3.5-5.1)
[2020-01-30 08:00] VITALS: BP 159/94
[2020-01-30 08:25] LABS: ABG BASE EXCESS 10.8 mmol/L (-2.0-2.0); ARTERIAL BLOOD GAS PH 7.465 (7.35-7.45)
[2020-01-30 12:00] VITALS: BP 141/81
[2020-01-30 16:00] VITALS: BP 157/76
[2020-01-30 20:00] VITALS: BP 164/98; BP 194/90
[2020-01-31] VITALS: BP 122/64
[2020-01-31 05:00] VITALS: BP 116/60
[2020-01-31 06:15] LABS: BASO % 0.1 % (0.0-1.0); EOS # 0.1 10*3/uL (0.0-0.4); EOS % 0.5 % (1.0-4.0); HEMATOCRIT 31.5 % (37.0-47.0); LYMPH # 2.3 10*3/uL (1.3-4.4); LYMPH % 14.5 % (27.0-41.0); MEAN CELL VOLUME 92.6 fl (81.0-99.0); MEAN CORPUSCULAR HGB 29.7 pg (27.0-31.0); MEAN CORPUSCULAR HGB CONC 32.1 g/dl (33.0-37.0); MEAN PLATELET VOLUME 9.2 fl (9.6-12.3); MONO # 1.1 10*3/uL (0.1-1.0); MONO % 6.9 % (3.0-9.0); NEUT # 12.3 10*3/uL (2.3-7.9); NEUT % 77.5 % (47.0-73.0); PLATELET COUNT AUTOMATED 504 10*3/uL (130-400); RED CELL DISTRI WIDTH 14.5 % (0-14.5); WHITE BLOOD COUNT 15.8 10*3/uL (4.8-10.8)
[2020-01-31 06:20] LABS: ALBUMIN 2.6 gm/dl (3.1-4.5); ALKALINE PHOSPHATASE 95 U/L (45-117); BUN 20 mg/dl (7-24); CHLORIDE 98 mmol/L (98-107); CREATININE 0.62 mg/dL (0.55-1.02); LDH 346 U/L (84-246); POTASSIUM 3.6 mmol/L (3.5-5.1); SGOT/AST 11 IU/L (3-35); SGPT/ALT 25 U/L (12-78); SODIUM 134 mmol/L (136-145); TOTAL PROTEIN 6.2 gm/dL (6.4-8.2)
[2020-01-31 08:00] VITALS: BP 124/83
[2020-01-31 12:00] VITALS: BP 127/73
[2020-01-31 16:00] VITALS: BP 124/82
[2020-01-31 20:00] VITALS: BP 128/74
[2020-02-01] VITALS: BP 104/60
[2020-02-01 04:00] VITALS: BP 129/83
[2020-02-01 06:18] LABS: BASO % 0.1 % (0.0-1.0); EOS # 0.1 10*3/uL (0.0-0.4); EOS % 0.3 % (1.0-4.0); HEMATOCRIT 29.3 % (37.0-47.0); LYMPH % 11.1 % (27.0-41.0); MEAN CELL VOLUME 93.6 fl (81.0-99.0); MEAN CORPUSCULAR HGB 30.4 pg (27.0-31.0); MEAN CORPUSCULAR HGB CONC 32.4 g/dl (33.0-37.0); MEAN PLATELET VOLUME 9.3 fl (9.6-12.3); MONO # 1.1 10*3/uL (0.1-1.0); NEUT # 14.6 10*3/uL (2.3-7.9); NEUT % 81.9 % (47.0-73.0); PLATELET COUNT AUTOMATED 511 10*3/uL (130-400); RED BLOOD COUNT 3.13 10*6/uL (4.10-5.10); RED CELL DISTRI WIDTH 14.6 % (0-14.5); WHITE BLOOD COUNT 17.9 10*3/uL (4.8-10.8)
[2020-02-01 06:40] LABS: ALBUMIN 2.6 gm/dl (3.1-4.5); ALKALINE PHOSPHATASE 98 U/L (45-117); BUN 21 mg/dl (7-24); CHLORIDE 100 mmol/L (98-107); CREATININE 0.59 mg/dL (0.55-1.02); LDH 305 U/L (84-246); POTASSIUM 3.6 mmol/L (3.5-5.1); SGOT/AST 10 IU/L (3-35); SGPT/ALT 23 U/L (12-78); SODIUM 135 mmol/L (136-145); TOTAL PROTEIN 6.1 gm/dL (6.4-8.2)
[2020-02-01 08:00] VITALS: BP 143/73
[2020-02-01 12:00] VITALS: BP 104/86
[2020-02-01 16:00] VITALS: BP 104/86
[2020-02-01 20:00] VITALS: BP 134/70
[2020-02-02] VITALS: BP 119/74
[2020-02-02 06:27] LABS: BASO % 0.1 % (0.0-1.0); EOS # 0.1 10*3/uL (0.0-0.4); EOS % 0.5 % (1.0-4.0); HEMATOCRIT 30.6 % (37.0-47.0); LYMPH % 10.8 % (27.0-41.0); MEAN CELL VOLUME 96.5 fl (81.0-99.0); MEAN CORPUSCULAR HGB 30.3 pg (27.0-31.0); MEAN CORPUSCULAR HGB CONC 31.4 g/dl (33.0-37.0); MEAN PLATELET VOLUME 10.9 fl (9.6-12.3); MONO # 1.2 10*3/uL (0.1-1.0); MONO % 6.2 % (3.0-9.0); NEUT # 15.3 10*3/uL (2.3-7.9); NEUT % 81.8 % (47.0-73.0); PLATELET COUNT AUTOMATED 364 10*3/uL (130-400); RED BLOOD COUNT 3.17 10*6/uL (4.10-5.10); RED CELL DISTRI WIDTH 14.8 % (0-14.5); WHITE BLOOD COUNT 18.7 10*3/uL (4.8-10.8)
[2020-02-02 06:42] LABS: CHLORIDE 100 mmol/L (98-107); POTASSIUM 4.1 mmol/L (3.5-5.1); SODIUM 138 mmol/L (136-145)
[2020-02-02 06:48] LABS: ALBUMIN 2.9 gm/dl (3.1-4.5); ALKALINE PHOSPHATASE 106 U/L (45-117); BUN 19 mg/dl (7-24); CREATININE 0.62 mg/dL (0.55-1.02); LDH 384 U/L (84-246); SGOT/AST 8 IU/L (3-35); SGPT/ALT 26 U/L (12-78)
[2020-02-02 08:00] VITALS: BP 108/68
[2020-02-02 12:00] VITALS: BP 126/72
[2020-02-02 13:06] LABS: ADENOVIRUS Negative (Negative); INFLUENZA A Negative (Negative); INFLUENZA B Negative (Negative); METAPNEUMOVIRUS Negative (Negative); PARAINFLUENZA 1 Negative (Negative); PARAINFLUENZA 2 Negative (Negative); PARAINFLUENZA 3 Negative (Negative); RHINOVIRUS Negative (Negative); RSV A Negative (Negative); RSV B Negative (Negative)
[2020-02-02 16:00] VITALS: BP 130/60
[2020-02-02 20:00] VITALS: BP 138/73
[2020-02-03] VITALS: BP 94/52
[2020-02-03 03:54] VITALS: BP 127/66
[2020-02-03 06:49] LABS: BASO % 0.1 % (0.0-1.0); EOS # 0.1 10*3/uL (0.0-0.4); EOS % 0.3 % (1.0-4.0); LYMPH # 2.1 10*3/uL (1.3-4.4); LYMPH % 11.8 % (27.0-41.0); MEAN CELL VOLUME 98.1 fl (81.0-99.0); MEAN CORPUSCULAR HGB 30.2 pg (27.0-31.0); MEAN CORPUSCULAR HGB CONC 30.8 g/dl (33.0-37.0); MEAN PLATELET VOLUME 10.3 fl (9.6-12.3); MONO # 1.1 10*3/uL (0.1-1.0); NEUT # 14.5 10*3/uL (2.3-7.9); NEUT % 81.2 % (47.0-73.0); PLATELET COUNT AUTOMATED 453 10*3/uL (130-400); RED BLOOD COUNT 3.67 10*6/uL (4.10-5.10); RED CELL DISTRI WIDTH 14.7 % (0-14.5); WHITE BLOOD COUNT 17.9 10*3/uL (4.8-10.8)
[2020-02-03 07:23] LABS: ALBUMIN 3.1 gm/dl (3.1-4.5); BUN 20 mg/dl (7-24); CHLORIDE 98 mmol/L (98-107); CREATININE 0.61 mg/dL (0.55-1.02); LDH 345 U/L (84-246); POTASSIUM 3.6 mmol/L (3.5-5.1); SGOT/AST 7 IU/L (3-35); SGPT/ALT 24 U/L (12-78); SODIUM 134 mmol/L (136-145)
[2020-02-03 07:24] LABS: ALKALINE PHOSPHATASE 118 U/L (45-117)
[2020-02-03 08:00] VITALS: BP 107/63
[2020-02-03] MEDS ORDERED: PREDNISONE10 MG PO ×2 (10:29)
[2020-02-03] MEDS ORDERED: PERCOCET 7.5 MG-325 PO (10:29)
[2020-02-03] MEDS ORDERED: DOXYCYCLINE100 M3 PO ×2 (10:29)
[2020-02-03] MEDS ORDERED: PERCOCET 7.5-31 EACH PO (10:51)
== END 2020-02-03 14:10 | disposition home health service (06) | DRG 720 ==
LOC: ED 11:43 → 4E 15:28 → EDHOLD 15:28 → ICCU 15:28 → 4E 01-30 17:31
PROVIDERS: Emergency Medicine; Internal Medicine Critical Care Medicine; Student in an Organized Health Care Education/Training Program; ADMIT Internal Medicine; ATTEND Internal Medicine
DX: A41.9 Sepsis, unspecified organism (principal); N17.0 Acute kidney failure with tubular necrosis; F32.9 Major depressive disorder, single episode, unspecified; I10 Essential (primary) hypertension; M81.0 Age-related osteoporosis without current pathological fracture; E43 Unspecified severe protein-calorie malnutrition; R65.20 Severe sepsis without septic shock; F41.1 Generalized anxiety disorder; E78.5 Hyperlipidemia, unspecified; J18.9 Pneumonia, unspecified organism; R94.31 Abnormal electrocardiogram [ECG] [EKG]; J96.21 Acute and chronic respiratory failure with hypoxia; D64.9 Anemia, unspecified; J45.901 Unspecified asthma with (acute) exacerbation; J44.0 Chronic obstructive pulmonary disease with (acute) lower respiratory infection; Z20.828 Contact with and (suspected) exposure to other viral communicable diseases; E87.8 Other disorders of electrolyte and fluid balance, not elsewhere classified; Z68.22 Body mass index [BMI] 22.0-22.9, adult; Z88.1 Allergy status to other antibiotic agents; Z88.8 Allergy status to other drugs, medicaments and biological substances; Z90.49 Acquired absence of other specified parts of digestive tract; Z83.6 Family history of other diseases of the respiratory system; Z82.49 Family history of ischemic heart disease and other diseases of the circulatory system; Z98.42 Cataract extraction status, left eye; Z98.41 Cataract extraction status, right eye; Z90.710 Acquired absence of both cervix and uterus; Z65.8 Other specified problems related to psychosocial circumstances; Z99.81 Dependence on supplemental oxygen; S22.070S Wedge compression fracture of T9-T10 vertebra, sequela

== ENCOUNTER 2020-02-08 22:22 | Inpatient (IN) | payer OTHER ==
[~2020-02-08] VITALS: Ht 160 cm; Wt 58.1 kg
[2020-02-09 03:00] VITALS: BP 100/64
--- NOTE | 2020-02-09 03:00 | NUR ---
The assessment has been completed. KEITH CHAVEZ Time: 299 A 59 year old FEMALE admitted to under services of BRITTANI NÚÑEZ DO. Pt. arrived via ambulatory from ER. Chief complaint: C/O INCREASED SOB OVER THE LAST SEVERAL DAYS.PT WAS JUST DISCHARGED FROM [facility] LAST FRIDAY. SHE WAS SUSPECTED COVID AND ICCU.PT STATES SHE ALSO WENT TO [facility] YESTERDAY FOR SAME COMPLAINT AND DISCHARGED HOME. STATES TAKING DOXY AT HOME W NO IMPROVEMENT.STATES SOB HAS INCREASED AND SHE HAS A TIGHTNESS IN HER CHEST. KEITH CHAVEZ
--- NOTE | 2020-02-09 03:24 | NUR ---
PT REQUESTING PAIN MEDICATION FOR CHRONIC BACK PAIN. STATES 6 AT THIS TIME. MEDICATED PER ORDER. RESPS EASY AND NON LABORED. SITTING IN BED. CALL LIGHT WITHIN REACH.
--- NOTE | 2020-02-09 04:24 | NUR ---
MEDICATION APPEARS EFFECTIVE. PT SLEEPING. RESPS EASY AND NON LABORED. CALL LIGHT WITHIN REACH.
--- NOTE | 2020-02-09 15:30 | NUR ---
PRN PERCOCET SOMEWHAT EFFECTIVE PER PT.
--- NOTE | 2020-02-09 16:32 | NUR ---
PT MEDICATED WITH PRN PERCOCET FOR C/O BACK PAIN. PT RATES PAIN 10/05. WILL MONITOR.
--- NOTE | 2020-02-09 18:22 | NUR ---
PT MEDICATED WITH PRN MORPHINE FOR C/O BACK PAIN. PT RATES PAIN 8/10. WILL MONITOR.
--- NOTE | 2020-02-09 18:47 | NUR ---
PRN MORPHINE EFFECTIVE PER PT.
--- NOTE | 2020-02-09 20:15 | NUR ---
24 HR CHART CHECK COMPLETE.
--- NOTE | 2020-02-10 00:21 | NUR ---
pt medicated with prn morphine for c/o back pain rated as a 10/10. will monitor for effectiveness.
--- NOTE | 2020-02-10 01:00 | NUR ---
PT SLEEPING, PRN MORPHINE APPEARS EFFECTIVE
--- NOTE | 2020-02-10 06:27 | NUR ---
pt medicated with prn morphine for c/o back pain rated as a 10/10. will continue to monitor.
--- NOTE | 2020-02-10 08:16 | NUR ---
PROPERTY DEVELOPER RECEIVED CALL FROM [phone]. PROPERTY DEVELOPER PROVIDED AN UPDATE.
--- NOTE | 2020-02-10 09:00 | NUR ---
Manager Of Enterprise in to talk to patient. Patient states lives at home with daughter. There are no steps in the home. Physician: dean maldonado [facility]acy: [facility] Home health services: had [facility] in the past Patient's level of ADLs: INDEPENDENT Patient has working utilities: all working DME: home oxygen, portable tanks, walker, showere chair from medical services Follow-up physician's appointment after d/c: will be made by hospitalist nurse director upon discharge Does patient want to access PORTAL?: no Discharge plan discussed with patient.she states she lives at home alone, but recently has been living with her daughter, she states she is independent in adls and ambulation, she has home oxygen, portable tanks, walker and shower chair from medical services. she states she will return home when medically stable. patient states she is having pain in her back that is causing her to be short of breath. she only gets a short supply of pain medication when discharged. she stated she was going to a pain clinic but is no long able to go there due to missing an appointment to verify amount of pain medications. she stated her doctor is attempting to set her up with another pain clinic. she states she doesn't have any other home needs at this time ISAC EDGAR
--- NOTE | 2020-02-10 09:33 | NUR ---
PT C/O OF PAIN ALL OVER, RATING 10/10, PRIOR TO PATIENT SEEING NURSE IN ROOM SHE WAS LAUGHING ON PHONE AND MOVING FREELY IN BED, WHEN PATIENT SEEN NURSE SHE STARTED MOANING AND SAYING SHOULD COULD BARELY MOVED. PRN PERCOCET GIVEN PER ORDER
--- NOTE | 2020-02-10 10:10 | NUR ---
PT SLEEPING WITH EYES CLOSED NO COMPLAINTS AT THIS TIME
--- NOTE | 2020-02-10 11:00 | NUR ---
PHYSICAL THERAPY Physical Therapy evaluation completed on 4th floor with full evaluation to follow. Recommend physical therapy per plan of care and home with home health services upon discharge. Thank you for this referral. Vin Salazar SPT Elif Do PT,DPT
--- NOTE | 2020-02-10 12:47 | NUR ---
PRN MORPHINE GIVEN FOR PAIN RATING ON 10/10 ALL OVER, PT IN BED EATING LUNCH DOES NOT APPEAR TO BE IN ANY DISTRESS.
--- NOTE | 2020-02-10 13:15 | NUR ---
PT SLEEPING IN BED WITH EYES CLOSED NO COMPLAINTS AT THIS TIME
--- NOTE | 2020-02-10 15:57 | NUR ---
PT VOICED TO PA THAT SHE DIDNT LIKE THIS NURSE, DISCUSSED WITH PATIENT IF SHE WANTED A NEW NURSE PT DENIES WANTING A NEW NURSE, ASKED PT IF I DID ANYTHING TO UPSET OR OFFEND HER SHE SAID "IT IS WHAT IT IS" PT REFUSED TO ELEBORATE, REFUSED TO CHANGE NURSES. CHARGE NURSE NOTIFIED
--- NOTE | 2020-02-10 16:01 | NUR ---
PT C/O OF BACK PAIN RATING 10/10 PT LAYING IN BED WATCHING TV NO S&S OF LEVEL 10 PAIN DISTRESS, PRN PERCOCET GIVEN PER ORDER
--- NOTE | 2020-02-10 17:59 | NUR ---
Patient c/o pain 10/10 on pain scale. Medicated as ordered. Skin was warm and dry. Patient was sitting up in bed and eating dinner. Patient verbalized relief of pain. No pain or distress at this time.
--- NOTE | 2020-02-10 20:04 | NUR ---
24 HR chart check completed.
--- NOTE | 2020-02-10 21:00 | NUR ---
RESTING IN BED. RESPIRATIONS EASY. LUNGS DIMINISHED WITH FORCED COARSE I&E WHEEZES. PULSE OX 96% 2L. CALL LIGHT WITHIN REACH.
--- NOTE | 2020-02-10 22:38 | NUR ---
REQUESTED AND RECEIVED MORPHINE IV PER PRN ORDER FOR COMPLAINTS OF BACK AND RIB PAIN RATING A 10. PER PATIENT "IT'S ACTUALLY A 100." PATIENT LAYING ON SIDE JOKING WITH RN. WILL MONITOR
--- NOTE | 2020-02-11 | NUR ---
RESTING WITH EYES CLOSED. O2 IN USE.
--- NOTE | 2020-02-11 02:52 | NUR ---
AGAIN C/O RIB AND BACK PAIN RATING A 9. DECLINES PERCOCET, REQUESTING MORPHINE. MEDICATED PER PRN ORDER. WILL MONITOR
--- NOTE | 2020-02-11 03:30 | NUR ---
MEDS APPEAR EFFECTIVE. SLEEPING. O2 IN USE. CALL LIGHT WITHIN REACH
--- NOTE | 2020-02-11 05:32 | NUR ---
IMMEDIATELY UPON AWAKENING, PATIENT STATES "I NEED SOMETHING FOR PAIN." MEDICATED WITH PERCOCET 2 TABS FOR C/O BACK/RIB PAIN RATING A 9. CALL LIGHT WITHIN REACH. WILL MONITOR
--- NOTE | 2020-02-11 06:00 | NUR ---
MEDS APPEAR EFFECTIVE, SLEEPING. O2 IN USE. CALL LIGHT WITHIN REACH
--- NOTE | 2020-02-11 09:45 | NUR ---
PRN MORPHINE EFFECTIVE PER PT.
--- NOTE | 2020-02-11 09:48 | NUR ---
PHYSICAL THERAPY PT IS LAYING SUPINE IN BED UPON ARRIVAL. PT IS AGREEABLE TO TX. PT IDENTIFIED BY AND NAME. PT STATES PAIN IN B LE UPON INITIAL BED MOBILITY BUT QUICKLY SUBSIDES. SPO2 ON 2 L 98% NASAL CANULA. GT W/IN ROOM W/O AD CLOSE SBA/CGA X20'X2 FOR FUNCTIONAL TASKS W/ V/C ON SAFETY W/ LONG O2 TUBING, PURSED LIP BREATHING AND ENERGY CONSERVATION TECHN. D/T SPO2 DECREASING TO 88% W/ RECOVERING TO 99% IN <2 MIN. PT REFUSES STAIR NEGOTIATION THIS DTAE D/T PLANS TO GO TO [facility] HOUSE UPON D/C PRIOR TO RETURNING HOME AND STATES SHE HAS NO STAIRS TO NAVIGATE. PT RETURNS TO [facility] W/ CALL LIGHT W/IN REACH AND SATISIFIED. TOTAL TX TIME 17 MIN. GUSTAVO VU, SHEET METAL DUCT WORKER SUPERVISOR
--- NOTE | 2020-02-11 10:06 | NUR ---
OT NOTE PATIENT SEEN 1:1 OT THIS DATE 15 MINUTES. PATIENT IDENTIFIED BY NAME AND DATE OF . PATIENT IN BED UPON ARRIVAL. PATIENT ON 02 THROUGHOUT SESSION 98% . PATIENT EDUCATED DIAPHRAMATIC BREATHING TECHNIQUE WITH GOOD CARRYOVER. PATIENT COMPLETED ENERGY CONSERVATION EDUCATION TO PREVENT SOB AND OVER EXERTION DURING ADL TASKS WITH HAND-OUT PROVIDED. PATIENT DEMONSTRATED GOOD UNDERSTANDING OF ENERGY CONSERVATION TECHNIQUE RECOMMENDATIONS THIS DATE. CRESENCIO JEROME
--- NOTE | 2020-02-11 10:23 | NUR ---
PALLIATIVE CARE NOTIFIED OF CONSULT.
--- NOTE | 2020-02-11 11:08 | NUR ---
KPAD SUPPLIED TO PT PER ORDER.
--- NOTE | 2020-02-11 13:43 | NUR ---
PT MEDICATED WITH PRN PERCOCET FOR C/O BACK PAIN. PT RATES 12/05. WILL MONITOR.
--- NOTE | 2020-02-11 14:07 | NUR ---
Spoke to Eneida at [facility] regarding consult. Asked if patient would be seen today or at home. She will reach out to [facility] and get back to . Awaiting return call.
--- NOTE | 2020-02-11 14:12 | NUR ---
GRACE Wahlen here, saw patient, will follow patient at home on discharge. Hospitalist nurse director notified.
--- NOTE | 2020-02-11 14:15 | NUR ---
PRN PERCOCET SOMEWHAT EFFECTIVE PER PT. WILL MONITOR. PT STATES PAIN IS CHRONIC.
--- NOTE | 2020-02-11 15:25 | NUR ---
PT MEDICATED WITH PRN MORPHINE FOR C/O BACK PAIN THAT SHE RATES 10/10. WILL MONITOR.
--- NOTE | 2020-02-11 15:43 | NUR ---
PHYSICAL THERAPY CO-SIGN I approve of the Physical Therapy notes written above. Juju Mccarty PT
--- NOTE | 2020-02-11 17:08 | NUR ---
PT MEDICATED WITH PRN MORPHINE FOR C/O BACK PAIN. PT RATES PAIN 10/10. WILL MONITOR.
--- NOTE | 2020-02-11 20:55 | NUR ---
PT RESTING IN BED. RESP-EASY AND REGULAR. OXYGEN IN USE. C/O BACK PAIN, RATES PAIN 9 ON PAIN SCALE 0-10. MEDICATED WITH PERCOCET PO PER PRN ORDER, SEE EMAR. TOLERATED ROUTINE MED WITH NO PROBLEM. CALL LIGHT IN REACH.
--- NOTE | 2020-02-11 21:00 | NUR ---
PT REQUESTING NICOTINE PATCH. DR. SPICER ON THE FLOOR MADE AWARE. ORDER TAKEN AND REVIEWED.
--- NOTE | 2020-02-11 21:55 | NUR ---
PT STATES PAIN MEDICATION HELPS, CHRONIC BACK PAIN. CALL LIGHT IN REACH.
--- NOTE | 2020-02-12 | NUR ---
PT RESTING IN BED. RESP-EASY AND REGULAR. NO C/O AT THIS TIME. CALL LIGHT IN REACH. SEE SHIFT ASSESSMENT
--- NOTE | 2020-02-12 01:36 | NUR ---
PT C/O LOW BACK PAIN, RATES PAIN 9 ON PAIN SCALE 0-10. MEDICATED WITH MORPHINE IV PER PRN ORDER, SEE EMAR. CALL LIGHT IN REACH.
--- NOTE | 2020-02-12 02:35 | NUR ---
RESTING IN BED. C/O NAUSEA, MEDICATED WITH ZOFRAN IV PER PRN ORDER, SEE TAWNY. PT STATE PAIN MEDICATION HELPS A LITLE. CALL LIGHT IN REACH.
--- NOTE | 2020-02-12 03:30 | NUR ---
PT RESTING IN BED WITH EYES CLOSED. RESP-EASY AND REGULAR. MEDICATION SEEMS TO BE EFFECTIVE. CALL LIGHT IN REACH.
--- NOTE | 2020-02-12 05:36 | NUR ---
PT C/O SIDE AND BACK PAIN, RATES PAIN 10 ON PAIN SCALE 0-10. MEDICATED WITH PERCOCET PO PER PRN ORDER, SEE EMAR. CALL LIGHT IN REACH.
--- NOTE | 2020-02-12 06:30 | NUR ---
RESTING IN BED. STATES MEDICATION HELPS A LITTLE. RATES PAIN 5 ON SCALE 0-10. CALL LIGHT IN REACH.
--- NOTE | 2020-02-12 09:01 | NUR ---
PT REQUESTED AND WAS MEDICATED WITH MORPHINE IV FOR C/O BACK PAIN. WILL MONITOR.
--- NOTE | 2020-02-12 09:50 | NUR ---
MEDICATION EFFECTIVE. WILL MONITOR
--- NOTE | 2020-02-12 12:11 | NUR ---
PT REQUESTED AND WAS MEDICATED WITH PERCOCET FOR C/O BACK PAIN. WILL MONITOR.
--- NOTE | 2020-02-12 13:00 | NUR ---
MEDICATION EFFECTIVE. CALL LIGHT IN REACH. WILL MONITOR.
--- NOTE | 2020-02-12 16:48 | NUR ---
PT REQUESTED AND WAS MEDICATED WITH MORPHINE IV FOR C/O BACK PAIN. CALL LIGHT IN REACH. WILL MONITOR
--- NOTE | 2020-02-12 23:35 | NUR ---
PT REQUEST PRN PO PAIN MEDICATION AT THIS TIME FOR 8/10 PAIN.
--- NOTE | 2020-02-13 00:29 | NUR ---
PT STATES PO PAIN MEDCATION IS INEFFECTIVE AND REQUEST IV PAIN MEDICATION AT THIS TIME. PER THE PT HER PAIN IS 9/10 AND HER PAIN IS IN HER LOWER BACK AND RADIATES TO BILATERAL FLANK. WILL REASSESS
--- NOTE | 2020-02-13 01:29 | NUR ---
PT IS IN BED RESTING QUIETLY WITH HER EYES CLOSED AND APPEARS TO BE ASLEEP. NO VERBALIZED NEEDS AT THIS TIME.
--- NOTE | 2020-02-13 03:52 | NUR ---
24 HR chart check completed.
--- NOTE | 2020-02-13 05:15 | NUR ---
PT C/O OF 9/10 PAIN TO HER BACK AND HER SIDES. PT REQUEST PRN PAIN MEDICATION. PO PRN PAIN MEDICATION PROVIDED.
--- NOTE | 2020-02-13 06:23 | NUR ---
PT REPORTS PO PAIN MEDICATION IS INEFFECTIVE AND REQUEST IV PAIN MEDICATION. PRN IV PAIN MEDCIATION GIVEN FOR PAIN RATING OF 10/10 FOR LOWER BACK AND BILATERAL FLANK PAIN. WILL REASSESS.
--- NOTE | 2020-02-13 08:30 | NUR ---
Patient resting quietly. Respirations easy and regular on O2. Vital signs stable. No overt distress. PETTY RAZO R
--- NOTE | 2020-02-13 11:17 | NUR ---
PT REQUESTED AND WAS MEDICATED WITH PERCOCET FOR C/O CHRONIC BACK PAIN. CALL LIGHT IN REACH. WILL MONITOR
--- NOTE | 2020-02-13 12:15 | NUR ---
MEDICATION EFFECTIVE PER PT. CALL LIGHT IN REACH. WILL MONITOR
--- NOTE | 2020-02-13 14:09 | NUR ---
PT REQUESTED AND WAS MEDICATED WITH MORPHINE IV FOR C/O BACK PAIN.
--- NOTE | 2020-02-13 15:00 | NUR ---
MEDICATION EFFECTIVE PER PT.
--- NOTE | 2020-02-13 17:56 | NUR ---
PT REQUESTED AND WAS MEDICATED WITH ZOFRAN IV FOR C/O NAUSEA. CALL LIGHT IN REACH. SAVANNA MONITOR
--- NOTE | 2020-02-13 17:59 | NUR ---
PT REQUESTED AND WAS MEDICATED WITH PERCOCET FOR C/O BACK PAIN.
--- NOTE | 2020-02-13 18:50 | NUR ---
MEDICATIONS EFFECTIVE. WILL MONITOR
--- NOTE | 2020-02-13 20:20 | NUR ---
24 HR CHART CHECK COMPLETE.
--- NOTE | 2020-02-13 22:13 | NUR ---
PT MEDICATED WITH PRN MORPHINE AND RESTORIL FOR C/O PAIN RATED A 10/10 AND INSOMNIA. WILL MONITOR FOR EFFECTIVENESS.
--- NOTE | 2020-02-13 23:00 | NUR ---
PT ASLEEP IN BED AT THIS TIME. NO S/S OF DISCOMFORT NOTED. PRN MORPHINE AND RESTORIL EFFECTIVE.
--- NOTE | 2020-02-14 02:25 | NUR ---
PT MEDICATED WITH PERCOCET FOR C/O BACK PAIN RATED A 10/10. WILL MONITOR FOR EFFECTIVENESS.
--- NOTE | 2020-02-14 03:00 | NUR ---
PT ASLEEP IN BED AT THIS TIME. NO S/S OF DISTRESS NOTED. PRN PERCOCET EFFECTIVE.
--- NOTE | 2020-02-14 08:30 | NUR ---
MEDICATED WITH PRN IV MORPHINE FOR C/O SEVERE PAIN TO BOTH SIDES OF LOWER RIB CAGE.
--- NOTE | 2020-02-14 09:00 | NUR ---
patient will be returning home when discharged. case management will follow
--- NOTE | 2020-02-14 09:00 | NUR ---
MORPHINE NOT EFFECTIVE, PER PATIENT. MEDICATED WITH PRN PO PERCOCET FOR BILATERAL SIDES OF RIBCAGE PAIN.
--- NOTE | 2020-02-14 09:50 | NUR ---
PRN PO PERCOCET EFFECTIVE, PER PATIENT.
--- NOTE | 2020-02-14 10:45 | NUR ---
OT NOTE PATIENT IN BED UPON ARRIVAL. PATIENT SEEN 1:1 OT THIS DATE 15 MINUTES. PATIENT IDENTIFIED BY NAME AND DATE OF . PATIENT REPORTS THAT SHE HAF A BAD NIGHT AND DECLINED OUT OF BED ACTIVITY. PATIENT WILLING TO COMPLETE OT SESSION THIS DATE. PATIENT IN BED WITH CANALA NOT IN HER NOSE. PATIENT'S 02 SATS 91% UPON ENTERING ROOM AND INCREASE 99% 3 L02 AFTER COMPLETING EDUCATION/DEMONSTRATION DIAPHRAGMATIC BREATHING TECHNIQUES WITH GOOD CARRYOVER. COMPLETED EDUCATION(ONLY) ENERGY CONSERVATION/ WORK SIMPLIFICATION TECHNIQUE AND AE FOR UTILIZATION DURING ADL TASKS WITH GOOD UNDERSTANDING. PATIENT REPORTS THAT SHE HAS A SHOWER CHAIR AT HOME AND GRAB BAR FOR IN SHOWER USE AT DAUGHTER'S HOUSE.PATIENT IN BED END OF SESSION WITH CALL LIGHT WITHIN REACH. CRESENCIO JEROME
[2020-02-14 12:00] VITALS: BP 148/90
--- NOTE | 2020-02-14 14:00 | NUR ---
Discharge instructions reviewed with patient. Patient receptive and verbalizes understanding. Follow-up care arranged. Written instructions given to patient. PATIENT DISCHARGED TO [facility], [facility], FOR TRANSPORT HOME BY PRIVATE VEHICLE WITH HER DAUGHTER. BEVERLEY MCKINNEY
--- NOTE | 2020-02-15 07:38 | NUR ---
OCCUPATIONAL THERAPY CO-SIGN I approve of the Occupational Therapy notes written above. MAYCO AMEZCUA, OTR/L
--- NOTE | 2020-02-15 07:40 | NUR ---
PHYSICAL THERAPY CO-SIGN I approve of the Physical Therapy notes written above. Juju Mccarty PT
== END 2020-02-14 14:00 | disposition home or self-care (01) | DRG 720 ==
LOC: ED 22:22 → EDHOLD 02-09 02:04 → 4E 02-09 02:04
PROVIDERS: ADMIT Internal Medicine; ATTEND Internal Medicine
DX: A41.9 Sepsis, unspecified organism (principal); J44.1 Chronic obstructive pulmonary disease with (acute) exacerbation; D64.9 Anemia, unspecified; D47.3 Essential (hemorrhagic) thrombocythemia; R73.9 Hyperglycemia, unspecified; R74.8 Abnormal levels of other serum enzymes; F17.210 Nicotine dependence, cigarettes, uncomplicated; E78.5 Hyperlipidemia, unspecified; M48.54XA Collapsed vertebra, not elsewhere classified, thoracic region, initial encounter for fracture; I10 Essential (primary) hypertension; F32.9 Major depressive disorder, single episode, unspecified; R07.89 Other chest pain; J96.22 Acute and chronic respiratory failure with hypercapnia; E87.3 Alkalosis; J45.901 Unspecified asthma with (acute) exacerbation; J96.21 Acute and chronic respiratory failure with hypoxia; F41.1 Generalized anxiety disorder; Z99.81 Dependence on supplemental oxygen; Z91.19 Patient's noncompliance with other medical treatment and regimen; Z88.1 Allergy status to other antibiotic agents; Z88.8 Allergy status to other drugs, medicaments and biological substances; Z90.710 Acquired absence of both cervix and uterus; Z98.42 Cataract extraction status, left eye; Z98.41 Cataract extraction status, right eye; Z90.49 Acquired absence of other specified parts of digestive tract; Z82.49 Family history of ischemic heart disease and other diseases of the circulatory system; Z82.3 Family history of stroke; Z83.3 Family history of diabetes mellitus; Z82.5 Family history of asthma and other chronic lower respiratory diseases; Z84.89 Family history of other specified conditions; Z79.899 Other long term (current) drug therapy

== ENCOUNTER 2020-02-22 15:46 | Emergency (ER) | payer OTHER ==
[~2020-02-22] VITALS: Ht 160 cm; Wt 58.1 kg
[2020-02-22 16:29] LABS: BASO # 0.1 10*3/uL (0.0-0.1); BASO % 0.5 % (0.0-1.0); EOS % 0.4 % (1.0-4.0); HEMATOCRIT 33.2 % (37.0-47.0); LYMPH # 1.9 10*3/uL (1.3-4.4); LYMPH % 19.3 % (27.0-41.0); MEAN CORPUSCULAR HGB 29.9 pg (27.0-31.0); MEAN CORPUSCULAR HGB CONC 32.5 g/dl (33.0-37.0); MEAN PLATELET VOLUME 9.3 fl (9.6-12.3); MONO % 10.2 % (3.0-9.0); NEUT # 6.7 10*3/uL (2.3-7.9); NEUT % 69.5 % (47.0-73.0); PLATELET COUNT AUTOMATED 513 10*3/uL (130-400); RED BLOOD COUNT 3.61 10*6/uL (4.10-5.10); RED CELL DISTRI WIDTH 12.7 % (0-14.5); WHITE BLOOD COUNT 9.7 10*3/uL (4.8-10.8)
[2020-02-22 16:45] LABS: ALBUMIN 3.4 gm/dl (3.1-4.5); ALKALINE PHOSPHATASE 110 U/L (45-117); BUN 21 mg/dl (7-24); CHLORIDE 94 mmol/L (98-107); CREATININE 1.02 mg/dL (0.55-1.02); POTASSIUM 3.9 mmol/L (3.5-5.1); SGOT/AST 13 IU/L (3-35); SGPT/ALT 16 U/L (12-78); SODIUM 135 mmol/L (136-145); TOTAL PROTEIN 7.8 gm/dL (6.4-8.2)
[2020-02-22 16:47] LABS: TROPONIN I < 0.015 ng/ml (<0.045)
[2020-02-22 16:50] LABS: ACT PARTIAL THROMBO TIME 25.1 SECONDS (20.0-32.1)
[2020-02-22 21:03] VITALS: BP 168/101
== END 2020-02-22 21:27 | disposition home or self-care (01) ==
LOC: ED 15:46
PROVIDERS: Emergency Medicine
DX: R07.89 Other chest pain (principal); F41.9 Anxiety disorder, unspecified; E78.5 Hyperlipidemia, unspecified; I10 Essential (primary) hypertension; J44.9 Chronic obstructive pulmonary disease, unspecified; Z88.8 Allergy status to other drugs, medicaments and biological substances; Z79.899 Other long term (current) drug therapy; Z79.2 Long term (current) use of antibiotics; Z90.49 Acquired absence of other specified parts of digestive tract; Z87.891 Personal history of nicotine dependence

== ENCOUNTER 2020-02-24 13:56 | Inpatient (IN) | payer OTHER ==
[~2020-02-24] VITALS: Ht 160 cm; Wt 54.0 kg
[2020-02-24 14:10] VITALS: BP 135/94
[2020-02-24 15:20] LABS: BASO # 0.1 10*3/uL (0.0-0.1); BASO % 0.6 % (0.0-1.0); EOS # 0.1 10*3/uL (0.0-0.4); EOS % 1.3 % (1.0-4.0); HEMATOCRIT 34.4 % (37.0-47.0); LYMPH # 1.9 10*3/uL (1.3-4.4); LYMPH % 20.5 % (27.0-41.0); MEAN CORPUSCULAR HGB 29.9 pg (27.0-31.0); MEAN CORPUSCULAR HGB CONC 32.8 g/dl (33.0-37.0); MEAN PLATELET VOLUME 9.2 fl (9.6-12.3); MONO # 0.8 10*3/uL (0.1-1.0); NEUT # 6.4 10*3/uL (2.3-7.9); NEUT % 68.4 % (47.0-73.0); PLATELET COUNT AUTOMATED 560 10*3/uL (130-400); RED BLOOD COUNT 3.78 10*6/uL (4.10-5.10); RED CELL DISTRI WIDTH 12.5 % (0-14.5); WHITE BLOOD COUNT 9.4 10*3/uL (4.8-10.8)
[2020-02-24 15:31] LABS: ACT PARTIAL THROMBO TIME 25.2 SECONDS (20.0-32.1)
[2020-02-24 15:36] LABS: ALBUMIN 3.6 gm/dl (3.1-4.5); ALKALINE PHOSPHATASE 111 U/L (45-117); CHLORIDE 97 mmol/L (98-107); CREATININE 0.89 mg/dL (0.55-1.02); LIPASE 120 U/L (73-393); SGOT/AST 15 IU/L (3-35); SGPT/ALT 20 U/L (12-78); SODIUM 133 mmol/L (136-145); TOTAL PROTEIN 7.4 gm/dL (6.4-8.2)
[2020-02-24 15:37] LABS: BUN 9 mg/dl (7-24); TROPONIN I < 0.015 ng/ml (<0.045)
[2020-02-24 16:31] VITALS: BP 183/86
[2020-02-24 17:46] VITALS: BP 166/78
[2020-02-24 18:19] VITALS: BP 160/77
[2020-02-24 18:26] VITALS: BP 180/90
[2020-02-24] MEDS ORDERED: PRILOSEC20 M1 PO (19:14)
[2020-02-24] MEDS ORDERED: ZESTRIL20 MG PO (19:24)
[2020-02-24] MEDS ORDERED: Phenergan6.25 MG/5 PO (19:33)
[2020-02-24] MEDS ORDERED: PERCOCET 7.5-31 EACH PO (19:40)
[2020-02-24] MEDS ORDERED: SPIRIVA RESPIMAT4 GM INH (19:41)
[2020-02-25] VITALS: BP 106/68
[2020-02-25 05:44] LABS: ALBUMIN 3.2 gm/dl (3.1-4.5); ALKALINE PHOSPHATASE 101 U/L (45-117); BUN 15 mg/dl (7-24); CHLORIDE 99 mmol/L (98-107); CREATININE 0.88 mg/dL (0.55-1.02); POTASSIUM 4.2 mmol/L (3.5-5.1); SGOT/AST 13 IU/L (3-35); SGPT/ALT 17 U/L (12-78); SODIUM 134 mmol/L (136-145); TOTAL PROTEIN 6.9 gm/dL (6.4-8.2)
[2020-02-25 05:50] LABS: BASO % 0.2 % (0.0-1.0); HEMATOCRIT 31.5 % (37.0-47.0); LYMPH # 0.8 10*3/uL (1.3-4.4); LYMPH % 16.9 % (27.0-41.0); MEAN CELL VOLUME 92.1 fl (81.0-99.0); MEAN CORPUSCULAR HGB 30.4 pg (27.0-31.0); MEAN PLATELET VOLUME 9.6 fl (9.6-12.3); MONO # 0.1 10*3/uL (0.1-1.0); MONO % 2.2 % (3.0-9.0); NEUT # 3.7 10*3/uL (2.3-7.9); NEUT % 80.3 % (47.0-73.0); PLATELET COUNT AUTOMATED 518 10*3/uL (130-400); RED BLOOD COUNT 3.42 10*6/uL (4.10-5.10); RED CELL DISTRI WIDTH 12.5 % (0-14.5); WHITE BLOOD COUNT 4.6 10*3/uL (4.8-10.8)
[2020-02-25 08:00] VITALS: BP 133/80
[2020-02-25 12:00] VITALS: BP 103/54
[2020-02-25 16:00] VITALS: BP 91/54
[2020-02-25 20:00] VITALS: BP 107/75
[2020-02-26] VITALS: BP 106/70
[2020-02-26 06:20] LABS: HEMATOCRIT 27.8 % (37.0-47.0); MEAN CELL VOLUME 93.9 fl (81.0-99.0); MEAN CORPUSCULAR HGB 29.1 pg (27.0-31.0); MEAN CORPUSCULAR HGB CONC 30.9 g/dl (33.0-37.0); MEAN PLATELET VOLUME 9.9 fl (9.6-12.3); PLATELET COUNT AUTOMATED 497 10*3/uL (130-400); RED BLOOD COUNT 2.96 10*6/uL (4.10-5.10); RED CELL DISTRI WIDTH 12.8 % (0-14.5)
[2020-02-26 06:21] LABS: BUN 21 mg/dl (7-24); CHLORIDE 104 mmol/L (98-107); CREATININE 0.94 mg/dL (0.55-1.02); POTASSIUM 4.4 mmol/L (3.5-5.1); SODIUM 139 mmol/L (136-145)
[2020-02-26 06:51] LABS: TOTAL CELLS COUNTED 100 #CELLS
[2020-02-26 06:52] LABS: PLATELET SUFFICIENCY HIGH (NORMAL)
[2020-02-26 08:00] VITALS: BP 107/65
[2020-02-26 12:00] VITALS: BP 124/72
[2020-02-26 16:00] VITALS: BP 131/53
[2020-02-26 20:00] VITALS: BP 138/69
[2020-02-27] VITALS: BP 118/59
[2020-02-27 06:00] LABS: ALBUMIN 3.1 gm/dl (3.1-4.5); ALKALINE PHOSPHATASE 109 U/L (45-117); BUN 17 mg/dl (7-24); CHLORIDE 106 mmol/L (98-107); POTASSIUM 4.2 mmol/L (3.5-5.1); SGOT/AST 11 IU/L (3-35); SGPT/ALT 15 U/L (12-78); SODIUM 141 mmol/L (136-145); TOTAL PROTEIN 6.3 gm/dL (6.4-8.2)
[2020-02-27 06:10] LABS: LYMPH # 0.9 10*3/uL (1.3-4.4); LYMPH % 6.7 % (27.0-41.0); MEAN CELL VOLUME 95.7 fl (81.0-99.0); MEAN CORPUSCULAR HGB 30.5 pg (27.0-31.0); MEAN CORPUSCULAR HGB CONC 31.9 g/dl (33.0-37.0); MONO # 0.4 10*3/uL (0.1-1.0); MONO % 3.2 % (3.0-9.0); NEUT # 12.1 10*3/uL (2.3-7.9); NEUT % 89.4 % (47.0-73.0); PLATELET COUNT AUTOMATED 478 10*3/uL (130-400); RED BLOOD COUNT 2.82 10*6/uL (4.10-5.10); RED CELL DISTRI WIDTH 12.9 % (0-14.5); WHITE BLOOD COUNT 13.5 10*3/uL (4.8-10.8)
[2020-02-27 08:00] VITALS: BP 147/90
[2020-02-27 16:00] VITALS: BP 179/73
[2020-02-27 20:00] VITALS: BP 170/90
[2020-02-28] VITALS: BP 157/77
[2020-02-28 06:09] LABS: HEMATOCRIT 27.9 % (37.0-47.0); MEAN CELL VOLUME 97.2 fl (81.0-99.0); MEAN CORPUSCULAR HGB CONC 30.8 g/dl (33.0-37.0); MEAN PLATELET VOLUME 10.7 fl (9.6-12.3); PLATELET COUNT AUTOMATED 392 10*3/uL (130-400); RED BLOOD COUNT 2.87 10*6/uL (4.10-5.10); RED CELL DISTRI WIDTH 12.8 % (0-14.5); WHITE BLOOD COUNT 11.3 10*3/uL (4.8-10.8)
[2020-02-28 06:24] LABS: BUN 21 mg/dl (7-24); CHLORIDE 105 mmol/L (98-107); CREATININE 0.79 mg/dL (0.55-1.02); POTASSIUM 3.9 mmol/L (3.5-5.1); SODIUM 137 mmol/L (136-145)
[2020-02-28 07:25] LABS: PLATELET SUFFICIENCY NORMAL (NORMAL); TOTAL CELLS COUNTED 100 #CELLS
[2020-02-28 08:00] VITALS: BP 151/94
[2020-02-28 12:00] VITALS: BP 167/76
[2020-02-28 16:00] VITALS: BP 161/82
[2020-02-28 20:00] VITALS: BP 109/98
[2020-02-28 22:05] VITALS: BP 180/100
[2020-02-29] VITALS: BP 182/100
[2020-02-29 01:30] VITALS: BP 132/74
[2020-02-29 08:00] VITALS: BP 170/98
[2020-02-29 12:00] VITALS: BP 117/93
[2020-02-29 16:00] VITALS: BP 166/99
[2020-02-29 20:00] VITALS: BP 184/94
[2020-03-01] VITALS: BP 127/88
[2020-03-01 08:00] VITALS: BP 146/95
[2020-03-01] MEDS ORDERED: OXYCONTIN10 M1 PO (11:46)
[2020-03-01] MEDS ORDERED: Zestril,Prinivi40 MG PO (11:46)
[2020-03-01] MEDS ORDERED: PREDNISONE10 MG PO (11:46)
[2020-03-01] MEDS ORDERED: OXYCODONE HCL5 MG PO (11:46)
[2020-03-01] MEDS ORDERED: DOXYCYCLINE100 M3 PO (11:46)
[2020-03-01 12:00] VITALS: BP 146/81
[2020-03-01 16:00] VITALS: BP 174/93
[2020-03-01 20:56] VITALS: BP 174/86
[2020-03-02] VITALS: BP 133/80
[2020-03-02 06:31] LABS: HEMATOCRIT 31.5 % (37.0-47.0); MEAN CELL VOLUME 94.6 fl (81.0-99.0); MEAN CORPUSCULAR HGB 29.7 pg (27.0-31.0); MEAN CORPUSCULAR HGB CONC 31.4 g/dl (33.0-37.0); MEAN PLATELET VOLUME 9.7 fl (9.6-12.3); PLATELET COUNT AUTOMATED 471 10*3/uL (130-400); RED BLOOD COUNT 3.33 10*6/uL (4.10-5.10); RED CELL DISTRI WIDTH 12.9 % (0-14.5); WHITE BLOOD COUNT 24.2 10*3/uL (4.8-10.8)
[2020-03-02 07:04] LABS: CREATININE 0.79 mg/dL (0.55-1.02)
[2020-03-02 07:09] LABS: PLATELET SUFFICIENCY HIGH (NORMAL); POLYCHROMASIA SLIGHT; TOTAL CELLS COUNTED 100 #CELLS; VACUOLATION OF NEUTROPHILS SLIGHT
[2020-03-02 08:00] VITALS: BP 162/92
[2020-03-02 12:00] VITALS: BP 156/90
== END 2020-03-02 14:38 | disposition home or self-care (01) | DRG 720 ==
LOC: ED 13:56 → EDHOLD 15:45 → ICCU 15:45 → 5E 15:45 → ICCU 18:05 → 5E 02-28 18:44
PROVIDERS: Emergency Medicine; Internal Medicine; Student in an Organized Health Care Education/Training Program; ADMIT Family Medicine; ATTEND Family Medicine
DX: A41.9 Sepsis, unspecified organism (principal); J18.9 Pneumonia, unspecified organism; J96.20 Acute and chronic respiratory failure, unspecified whether with hypoxia or hypercapnia; D47.3 Essential (hemorrhagic) thrombocythemia; J44.1 Chronic obstructive pulmonary disease with (acute) exacerbation; J44.0 Chronic obstructive pulmonary disease with (acute) lower respiratory infection; E87.1 Hypo-osmolality and hyponatremia; R73.9 Hyperglycemia, unspecified; F41.1 Generalized anxiety disorder; E78.5 Hyperlipidemia, unspecified; G43.909 Migraine, unspecified, not intractable, without status migrainosus; Z96.1 Presence of intraocular lens; J20.9 Acute bronchitis, unspecified; I10 Essential (primary) hypertension; M81.0 Age-related osteoporosis without current pathological fracture; F17.210 Nicotine dependence, cigarettes, uncomplicated; J84.10 Pulmonary fibrosis, unspecified; F33.2 Major depressive disorder, recurrent severe without psychotic features; D64.9 Anemia, unspecified; Z76.5 Malingerer [conscious simulation]; Z99.81 Dependence on supplemental oxygen; Z90.49 Acquired absence of other specified parts of digestive tract; Z90.710 Acquired absence of both cervix and uterus; Z98.42 Cataract extraction status, left eye; Z98.41 Cataract extraction status, right eye; Z82.49 Family history of ischemic heart disease and other diseases of the circulatory system; Z82.5 Family history of asthma and other chronic lower respiratory diseases; Z84.89 Family history of other specified conditions; Z88.1 Allergy status to other antibiotic agents; Z88.8 Allergy status to other drugs, medicaments and biological substances; Z79.899 Other long term (current) drug therapy; Z83.3 Family history of diabetes mellitus; Z82.3 Family history of stroke

== ENCOUNTER 2020-03-04 19:57 | Inpatient (IN) | payer OTHER ==
[~2020-03-04] VITALS: Ht 160 cm; Wt 61.0 kg
[~2020-03-04 19:57] MED LIST changes: +OXYCODONE HCL5 MG PO; +Phenergan6.25 MG/5 PO; +SPIRIVA RESPIMAT4 GM INH; +Zestril,Prinivi40 MG PO
[2020-03-04 19:59] VITALS: BP 148/70
[2020-03-04 20:42] LABS: HEMATOCRIT 32.3 % (37.0-47.0); MEAN CELL VOLUME 91.2 fl (81.0-99.0); MEAN CORPUSCULAR HGB 29.9 pg (27.0-31.0); MEAN CORPUSCULAR HGB CONC 32.8 g/dl (33.0-37.0); MEAN PLATELET VOLUME 9.6 fl (9.6-12.3); PLATELET COUNT AUTOMATED 493 10*3/uL (130-400); RED BLOOD COUNT 3.54 10*6/uL (4.10-5.10); RED CELL DISTRI WIDTH 12.7 % (0-14.5); WHITE BLOOD COUNT 21.1 10*3/uL (4.8-10.8)
--- NOTE | 2020-03-04 20:50 | NUR ---
2 RNS HAVE TRIED FOR IV ACCESS, UNSUCCESSFUL AT THIS TIME.
[2020-03-04 20:58] LABS: ALBUMIN 3.2 gm/dl (3.1-4.5); ALKALINE PHOSPHATASE 101 U/L (45-117); BUN 11 mg/dl (7-24); CHLORIDE 91 mmol/L (98-107); CREATININE 0.61 mg/dL (0.55-1.02); LIPASE 31 U/L (73-393); POTASSIUM 3.5 mmol/L (3.5-5.1); SGOT/AST 19 IU/L (3-35); SGPT/ALT 27 U/L (12-78); SODIUM 131 mmol/L (136-145); TOTAL PROTEIN 7.2 gm/dL (6.4-8.2)
[2020-03-04 21:22] LABS: TOTAL CELLS COUNTED 100 #CELLS
[2020-03-04 21:24] LABS: PLATELET SUFFICIENCY HIGH (NORMAL)
--- NOTE | 2020-03-04 23:00 | NUR ---
IV INFILTRATED AT CT.
--- NOTE | 2020-03-04 23:16 | NUR ---
PT. RESTING IN BED WITH EYES CLOSED. RR EASY AND NON-LABORED. CALL LIGHT WITHIN REACH. WILL CONTINUE TO MONITOR.
--- NOTE | 2020-03-04 23:24 | NUR ---
UNABLE TO GET IV ACCESS AT THIS TIME.
[2020-03-05] VITALS (8 sets, daily range): BP systolic 148–187; BP diastolic 78–105
--- NOTE | 2020-03-05 00:50 | NUR ---
PT. RESTING IN BED WITH EYES CLOSED. RR WASY AND NON-LABORED. CALL LIGHT WITHIN REACH. WILL CONTINUE TO MONITOR.
--- NOTE | 2020-03-05 03:30 | NUR ---
PT. RESTING IN BED WITH EYES CLOSED. RR EASY AND NON-LABORED. CALL LIGHT WITHIN REACH. WILL CONTINUE TO MONITOR.
--- NOTE | 2020-03-05 05:30 | NUR ---
PT. RESTING IN BED WITH EYES CLOSED. RR EASY AND NON-LABORED. CALL LIGHT WITHIN REACH. WILL CONTINUE TO MONITOR.
--- NOTE | 2020-03-05 05:42 | NUR ---
NURSING SUPERVISIOR WAS CALLED TO GET ZOSYN 3.375 DUE AT 0600. NURSING SUPERVISIOR STATES "UNABLE TO DO THAT AT THIS TIME".
[2020-03-05 06:20] LABS: BASO % 0.2 % (0.0-1.0); EOS # 0.1 10*3/uL (0.0-0.4); EOS % 0.6 % (1.0-4.0); HEMATOCRIT 34.3 % (37.0-47.0); LYMPH # 1.8 10*3/uL (1.3-4.4); LYMPH % 10.5 % (27.0-41.0); MEAN CELL VOLUME 90.3 fl (81.0-99.0); MEAN CORPUSCULAR HGB 29.7 pg (27.0-31.0); MEAN CORPUSCULAR HGB CONC 32.9 g/dl (33.0-37.0); MEAN PLATELET VOLUME 9.7 fl (9.6-12.3); MONO # 1.2 10*3/uL (0.1-1.0); MONO % 6.8 % (3.0-9.0); NEUT # 14.1 10*3/uL (2.3-7.9); NEUT % 80.9 % (47.0-73.0); PLATELET COUNT AUTOMATED 523 10*3/uL (130-400); RED CELL DISTRI WIDTH 12.7 % (0-14.5); WHITE BLOOD COUNT 17.5 10*3/uL (4.8-10.8)
[2020-03-05 06:22] LABS: BUN 13 mg/dl (7-24); CHLORIDE 93 mmol/L (98-107); CREATININE 0.61 mg/dL (0.55-1.02); POTASSIUM 3.2 mmol/L (3.5-5.1); SODIUM 132 mmol/L (136-145)
--- NOTE | 2020-03-05 06:46 | NUR ---
PT. PULLED 2ND IV SITE OUT. UNABLE TO HANG ZOSYN AT THIS TIME.
--- NOTE | 2020-03-05 07:10 | NUR ---
NURSE REPORT RECEIVED FOR CONTINUATION OF CARE. REPORT INDICATED NO IV SITE IS PRESENT AFTER MULTIPLE FAILED ATTEMPTS AT INSERTION AND ONE SUCCESSFUL ATTEMPT THAT WAS ACCIDENTLY PULLED OUT BY PT, PER REPORT. DR TO BE NOTIFIED OF NO IV SITE.
--- NOTE | 2020-03-05 09:27 | NUR ---
UNABLE TO OBTAIN IV SITE DESPITE MULTIPLE ATTEMPTS. ADMITTING DR MADE AWARE.
--- NOTE | 2020-03-05 09:30 | NUR ---
PT UNWILLING TO LET CARDIAC MONITORING DEVICES REMAIN IN PLACE.
--- NOTE | 2020-03-05 10:57 | NUR ---
IV SITE INSERTED. PT REFUSES TO LEAVE DOOR TO ROOM CLOSED.
--- NOTE | 2020-03-05 12:26 | NUR ---
PT REFUSES MEAL TTRAY. REQUESTS MORPHINE. I WILL CONTRA
--- NOTE | 2020-03-05 12:55 | NUR ---
I NOTIFIED DR ROSS NOW FOR PT'S REQUEST FOR MOIRPHINE DOSING PRN AND SHE PROVIDED ROXICET DOSE. WILL PROVIDE TO PT SHORTLY.
--- NOTE | 2020-03-05 13:07 | NUR ---
NAUSEA PERSISTS DESPITE ZOFRAN DOSING.
--- NOTE | 2020-03-05 13:40 | NUR ---
DR URIAS NOW ARRIVES TO BEDSIDE AND STATES THAT DESPITE PT REFUSING TO ALLOW THE DOOR TO BE SHUT, HER COVID SWAB IS PENDING AND SHE REQUIRES THE DOOR BE SHUT. STOP SIGN AND SIGN UP FORM FOR AIRBORNE ISOLATION HUNG ON DOORJAMB.
--- NOTE | 2020-03-05 14:35 | NUR ---
PT UP TO RESTROOM, INIALLY REFUSES TO WEAR A MASK, REDIRECTED, NEW MASK PROVIDED IN HALLWAY.
--- NOTE | 2020-03-05 15:00 | NUR ---
NURSE REPORT TO CHERRY GALVAN RN, FOR CONTIMNUATION OF CARE. PT HAS BEEN MEDICATED FOR PAIN AND WHEN ASKED A SHORT TIME AGO REPORTS PAIN TOLERABLE AT THIS TIME.
--- NOTE | 2020-03-05 16:20 | NUR ---
Time: 1619 A 59 year old FEMALE admitted to under services of DENISSE GARCÍA DO, Pt. arrived via bed from ER. Chief complaint: SUSPECTED COVID, BACK PAIN, UPPER ABD PAIN. VICENTE SCHUMACHER
--- NOTE | 2020-03-05 17:30 | NUR ---
& INFECTIOUS DISEASE BOTH AWARE OF CONSULTS.
--- NOTE | 2020-03-05 17:49 | NUR ---
PATIENT COMPLAINING OF 9/10 BACK PAIN AT THIS TIME AND REQUESTING PAIN MEDICATION. MEDICATED WITH OXY IR PER ORDER. WILL MONITOR.
--- NOTE | 2020-03-05 18:49 | NUR ---
PER PATIENT - MEDICATION HAS BEEN EFFECTIVE - RELAXED AT HIS TIME, NO COMPLAINTS.
--- NOTE | 2020-03-05 19:30 | NUR ---
PER REQUEST, FACETIMED WITH PATIENT FROM HOME. PATIENT DISCUSSED SYMPTOMS WITH DOCTOR. STATED HE WOULD PLACED OTHER LAB ORDERS TONIGHT.
--- NOTE | 2020-03-05 20:50 | NUR ---
IV discontinued, LA. Site symptomatic, EDEMATOUS/PAINFUL. Pressure applied. Sterile dressing applied. JONAS VELOZ
--- NOTE | 2020-03-05 20:55 | NUR ---
IV started left hand with #24 protective cath after 1 attempts. Site prepped with Chloroprep. Sterile dressing applied. Patient tolerated procedure well. JONAS VELOZ
--- NOTE | 2020-03-05 21:33 | NUR ---
PATIENT MEDICATED WITH RESTORIL, ROXICODONE, ZOFRAN FOR INSOMNIA/RIB PAIN 10/10 AND NAUSEA. WILL MONITOR
--- NOTE | 2020-03-05 22:14 | NUR ---
MADE AWARE THAT PATIENT IS REQUESTING GABAPENTIN AND ZANAFLEX. MEDICATION NOTED TO BE CONTINUED ON HOME REC LIST BUT NOT UNDER MEDICATION ORDERS. STATED HE WILL LOOK INTO
--- NOTE | 2020-03-05 22:33 | NUR ---
RESTORIL, ROXICODONE, ZOFRAN EFFECTIVE
--- NOTE | 2020-03-05 22:49 | NUR ---
TALK TO STATED OK TO START GABAPENTIN IN FOR NOW AND OK TO CONTINUE ZANAFLEX
[2020-03-06] VITALS: BP 101/50; BP 148/70
[2020-03-06 04:06] LABS: BILIRUBIN Negative (Negative); BLOOD Negative (Negative); CLARITY Clear (Clear); COLOR Yellow (Yellow); GLUCOSE 1+ (Negative); KETONE 2+ (Negative); LEUKO ESTERASE Negative (Negative); NITRITE Negative (Negative); PH 6.5 (4.5-8.0); SPECIFIC GRAVITY >= 1.030 (1.001-1.030)
[2020-03-06 04:14] LABS: BACTERIA 1+; EPITHELIAL CELLS 0-2; MUCOUS 2+; RBC 0-2 rbc/hpf (0-2)
[2020-03-06 06:34] LABS: BASO % 0.1 % (0.0-1.0); HEMATOCRIT 30.9 % (37.0-47.0); LYMPH # 0.9 10*3/uL (1.3-4.4); LYMPH % 5.8 % (27.0-41.0); MEAN CELL VOLUME 91.2 fl (81.0-99.0); MEAN CORPUSCULAR HGB 29.8 pg (27.0-31.0); MEAN CORPUSCULAR HGB CONC 32.7 g/dl (33.0-37.0); MEAN PLATELET VOLUME 9.7 fl (9.6-12.3); MONO # 0.9 10*3/uL (0.1-1.0); NEUT # 12.9 10*3/uL (2.3-7.9); NEUT % 87.2 % (47.0-73.0); PLATELET COUNT AUTOMATED 499 10*3/uL (130-400); RED BLOOD COUNT 3.39 10*6/uL (4.10-5.10); RED CELL DISTRI WIDTH 12.9 % (0-14.5); WHITE BLOOD COUNT 14.7 10*3/uL (4.8-10.8)
[2020-03-06 06:52] LABS: ALBUMIN 2.9 gm/dl (3.1-4.5); CREATININE 1.2 mg/dL (0.55-1.02); POTASSIUM 3.9 mmol/L (3.5-5.1); TOTAL PROTEIN 6.7 gm/dL (6.4-8.2)
[2020-03-06 08:00] VITALS: BP 88/50
--- NOTE | 2020-03-06 08:50 | NUR ---
/NOEMI NOTIFIED OF LOW BP, NEW ORDER FOR 1X BOLUS
--- NOTE | 2020-03-06 10:00 | NUR ---
REPEAT BP 110/60 AFTER BOLUS
[2020-03-06 12:00] VITALS: BP 112/66
--- NOTE | 2020-03-06 12:15 | NUR ---
Patient requesting a referral to [facility] for rehab. Contacted Melina at facility and she stated they do have a separate wing for covid patients that are already at [facility], but they are not accepting outside patients with covid positive results. This patient is a PUI, will waiting for Covid results prior to faxing a new referral.
--- NOTE | 2020-03-06 14:50 | NUR ---
PHYSICAL THERAPY Physical Therapy evaluation completed on 4th floor with full evaluation to follow. Recommend physical therapy per plan of care and SNf upon discharge. Thank you for this referral. Juju Mccarty PT
[2020-03-06 16:00] VITALS: BP 149/84
--- NOTE | 2020-03-06 16:26 | NUR ---
PT C/O OF RIB PAIN RATING 8/10 PRN PAIN PILL GIVEN PER ORDER
--- NOTE | 2020-03-06 17:00 | NUR ---
PER PT PRN PAIN PILL WAS EFFECTIVE FOR PAIN
[2020-03-06 20:00] VITALS: BP 140/75
--- NOTE | 2020-03-06 20:19 | NUR ---
PATIENT MEDICATED WITH ROXICODONE FOR BACK/RIB PAIN 12/05 WILL MONITOR
--- NOTE | 2020-03-06 21:50 | NUR ---
PATIENT MEDICATED WITH RESTORIL FOR C/O INSOMNIA. WILL MONITOR
--- NOTE | 2020-03-06 21:51 | NUR ---
PATIENT MEDICATED WITH ZOFRAN FOR C/O NAUSEA. WILL MONITOR
[2020-03-07] VITALS: BP 119/84
--- NOTE | 2020-03-07 05:34 | NUR ---
PATIENT MEDICATED WIHT 01/05 FOR BACK/RIB PAIN. WILL MONITOR
[2020-03-07 08:00] VITALS: BP 104/80
[2020-03-07 08:58] LABS: BASO % 0.1 % (0.0-1.0); HEMATOCRIT 29.3 % (37.0-47.0); LYMPH # 0.9 10*3/uL (1.3-4.4); LYMPH % 4.2 % (27.0-41.0); MEAN CELL VOLUME 93.6 fl (81.0-99.0); MEAN CORPUSCULAR HGB 29.7 pg (27.0-31.0); MEAN CORPUSCULAR HGB CONC 31.7 g/dl (33.0-37.0); MEAN PLATELET VOLUME 9.5 fl (9.6-12.3); MONO # 1.3 10*3/uL (0.1-1.0); MONO % 6.1 % (3.0-9.0); NEUT # 19.2 10*3/uL (2.3-7.9); NEUT % 88.4 % (47.0-73.0); PLATELET COUNT AUTOMATED 414 10*3/uL (130-400); RED BLOOD COUNT 3.13 10*6/uL (4.10-5.10); RED CELL DISTRI WIDTH 13.2 % (0-14.5); WHITE BLOOD COUNT 21.7 10*3/uL (4.8-10.8)
[2020-03-07 09:29] LABS: ALBUMIN 3.3 gm/dl (3.1-4.5); ALKALINE PHOSPHATASE 105 U/L (45-117); BUN 33 mg/dl (7-24); CHLORIDE 95 mmol/L (98-107); CREATININE 1.11 mg/dL (0.55-1.02); LDH 452 U/L (84-246); POTASSIUM 4.2 mmol/L (3.5-5.1); SGOT/AST 22 IU/L (3-35); SGPT/ALT 30 U/L (12-78); SODIUM 131 mmol/L (136-145); TOTAL PROTEIN 7.3 gm/dL (6.4-8.2)
--- NOTE | 2020-03-07 09:50 | NUR ---
Received call from [facility] nurse, Kyleigh. They have appt set up with the patient on Saturday 03/10. Aids Social Worker notified.
[2020-03-07 11:08] LABS: IMMUNOGLOBULIN M, QNT 98 mg/dL (26-217); RHEUMATOID ARTHRITIS FACTOR 25.8 IU/mL (0.0-13.9)
--- NOTE | 2020-03-07 11:17 | NUR ---
case management called patient's room numerous times regarding discharge plans. patient this time answered phone. discussed with her agreeing to go to [facility] for short term correction. she became angry and stated she would not go to a facility. she would return home. she [facility] and also [facility]. case management will notify [facility] when patient is discharged. patient stated she would be going home today but not until late afternoon. case management will follow. case management contacted [facility], spoke to Radha, notified her that patient will be discharged to home today and will need seen in the next couple of days. case management will follow
[2020-03-07] MEDS ORDERED: KLOR-CON M2020 ME1 PO (11:29)
[2020-03-07] MEDS ORDERED: OXYCODONE HCL5 MG PO (11:29)
[2020-03-07] MEDS ORDERED: OXYCONTIN20 M1 PO (11:29)
[2020-03-07] MEDS ORDERED: PREDNISONE10 MG PO (11:29)
--- NOTE | 2020-03-07 11:49 | NUR ---
case management received a message that patient is not being discharged to home today. will notify [facility]
[2020-03-07 12:00] VITALS: BP 147/68
--- NOTE | 2020-03-07 12:54 | NUR ---
PT C/O OF BACK PAIN RATING 6/10 PRN ROXICODONE GIVE PER REQUEST
--- NOTE | 2020-03-07 13:17 | NUR ---
OT NOTE Pt was seen this P.M, 1:1 for 20 minute OT session and upon arrival pt was supine in bed. Pt identified by name and and had complaints of 9/10 R pain and 10/10 low back pain. Pt presented to therapy with continuous 4L-O2 via NC which she remained on throughout the entire session. Pt transferred supine to sit EOB with SBA. While sitting EOB pt donned B socks with SBA while bringing leg up to bed level. Sit to stand completed from bed level with SBA. Challenged pt's dynamic standing balance while weight shifting, crossing midline, and reaching over all planes and pt was able to maintain G- standing balance throughout. Throughout session pt was educated on energy conservation and work simplification techniques, pt verbalized understanding. Attempted to complete functional mobility and ADL task and pt declined stating "I am in too much pain to be walking." Pt then transferred back into bed sit to supine with SBA. There she was left with call light in hand, tray table in place, and phone in reach. Continue with POC as able. Throughout entire session airborne precautions were maintained. CHELA Lopez/Yarelis
--- NOTE | 2020-03-07 13:30 | NUR ---
PER PT PRN ROXICODONE WAS EFFECTIVE
--- NOTE | 2020-03-07 14:19 | NUR ---
PHYSICAL THERAPY TREATMENT TIME: OUT 1:17 18 MINUTES TOTAL Patient presented to therapy in supine with head of bed elevated and 4 liters of spO2 VIA NASAL CANULA. Patient reports bilateral base of lung /rib pain. Patient gives informed consent for treatment. Patient was identified by name and on wristband. Patient performed supine <> sitting on EOB with SBA. Patient performed STS <> EOB with SBA and 360 degrees turn at bedside with SBA and no LOB. Patient sat on EOB and performed seated bilateral LE ther ex 2 x 10 reps each in all planes of movement including LAQs, marches, heel/toe raises and hip abduction for strengthening the LEs in order to improve patient's functional mobility. Patient sitting EOB > supine in bed with SBA. Patient was left in supine in bed with head of bed elevated and call light within reach. Patient ambulates to the bathroom on her own throughout the day. Patient was 1:1 with this VIDEO GAME MAKER for 18 minutes total. MACK LINARES VIDEO GAME MAKER
[2020-03-07 15:10] LABS: ALDOLASE 7.9 U/L (3.3-10.3); ANGIOTENSIN-CONVERTING ENZYME <15 U/L (14-82); IGG SUBCLASS 1 262 mg/dL (248-810); IGG SUBCLASS 2 100 mg/dL (130-555); IGG SUBCLASS 3 50 mg/dL (15-102); IGG SUBCLASS 4 19 mg/dL (2-96); IMMUNOGLOBULIN G, QNT 471 mg/dL (586-1602)
[2020-03-07 16:00] VITALS: BP 131/72
[2020-03-07 17:06] LABS: ATYPICAL PANCA <1:20 titer (Neg:<1:20); CYTOPLASMIC (C-ANCA) <1:20 titer (Neg:<1:20)
[2020-03-07 20:00] VITALS: BP 181/97
--- NOTE | 2020-03-07 21:53 | NUR ---
PATIENT MEDICATED WITH RESTORIL/ROXICODONE/ZOFRAN FOR C/O INSOMNIA, BACK PAIN 8/10 AND NAUSEA. WILL MONITOR
[2020-03-07 22:00] VITALS: BP 148/88
--- NOTE | 2020-03-07 22:25 | NUR ---
MADE AWARE THAT PATIENT IV WAS REMOVED EARLIER TODAY D/T INFILTRATION. ATTEMPT AT NEW IV FOR IV ZOFRAN, WAS ABLE TO ADMINISTER MEDICATION BUT IV CATH WOULD NOT ADVANCE, LEAVING MOST OF CATHETER EXPOSED SO IV WAS REMOVED. SATTED TO CHANGE ZOFRAN TO SL AND PATIENT OK TO NOT HAVING IV ACCESS.
--- NOTE | 2020-03-07 22:53 | NUR ---
ROXICODONE,RESTORIL AND ZOFRAN EFFECTIVE
[2020-03-08] VITALS: BP 148/73
--- NOTE | 2020-03-08 06:22 | NUR ---
PATIENT MEDICATED WITH ROXICODONE FOR C/O BACK PAIN 12/05. WILL MONITOR
[2020-03-08 08:00] VITALS: BP 139/77
--- NOTE | 2020-03-08 09:00 | NUR ---
patient is a discharge to home today, will notify [facility]
--- NOTE | 2020-03-08 10:23 | NUR ---
PATIENT C/O 10/10 UPPER BACK AND BILAT SIDES PAIN AT THIS TIME AND REQUESTING PAIN MED. MEDICATED WITH ROXICODONE PER ORDER. WILL MONITOR FOR EFFECTIVENESS.
--- NOTE | 2020-03-08 13:04 | NUR ---
case management faxed home health face to face to Radha at [facility]
--- NOTE | 2020-03-08 13:51 | NUR ---
OT NOTE Attempted to see pt this P.M. for OT session and upon arrival pt was supine in bed. Pt was very tearful and voiced that she was very upset about her care here at the hospital with the doctor, being discharged at this time, and family issues. Pt declined therapy at this time stating "I am not doing good right now, my nerves are up. Thanks but no thanks, I'm sorry." Will check back at a later time/date and continue with POC as able. QUEENIE Lopez
--- NOTE | 2020-03-08 14:05 | NUR ---
PHYSICAL THERAPY Patient was approached for her therapy session this afternoon an she was very upset that she was being discharged today and was crying. Patient did not want to do any therapy for this reason. Patient to be discharged today. MACK LINARES SOCCER COMMENTATOR
--- NOTE | 2020-03-08 14:40 | NUR ---
Discharge instructions reviewed with patient/family. Patient receptive and verbalizes understanding. Follow-up care arranged. Written instructions given to patient/family. PATIENT PICKED UP BY DAUGHTER. O2 IN PLACE @ 4L. TAKEN OFF FLOOR VIA WHEELCHAIR. PRESCRIPTIONS GIVEN. VICENTE SCHUMACHER
--- NOTE | 2020-03-08 15:09 | NUR ---
OCCUPATIONAL THERAPY CO-SIGN I approve of the Occupational Therapy notes written above. DOM WOODS OTR/Yarelis
[2020-03-08 22:08] LABS: IMMUNOGLOBULIN IgE 25 IU/mL (6-495)
--- NOTE | 2020-03-09 08:14 | NUR ---
PHYSICAL THERAPY CO-SIGN I approve of the Physical Therapy notes written above. Juju Mccarty PT
== END 2020-03-08 14:57 | disposition home health service (06) | DRG 720 ==
LOC: ED 19:57 → 4E 03-05 00:58 → EDHOLD 03-05 00:58 → 4E 03-05 15:41
PROVIDERS: Emergency Medicine; Internal Medicine; Internal Medicine Critical Care Medicine; ADMIT Internal Medicine; ATTEND Internal Medicine
DX: A41.9 Sepsis, unspecified organism (principal); J18.9 Pneumonia, unspecified organism; I10 Essential (primary) hypertension; F41.1 Generalized anxiety disorder; G43.909 Migraine, unspecified, not intractable, without status migrainosus; Z96.1 Presence of intraocular lens; D68.59 Other primary thrombophilia; F32.9 Major depressive disorder, single episode, unspecified; M81.0 Age-related osteoporosis without current pathological fracture; J30.9 Allergic rhinitis, unspecified; E87.1 Hypo-osmolality and hyponatremia; R73.9 Hyperglycemia, unspecified; M62.830 Muscle spasm of back; J43.9 Emphysema, unspecified; E78.5 Hyperlipidemia, unspecified; Z20.828 Contact with and (suspected) exposure to other viral communicable diseases; Z90.49 Acquired absence of other specified parts of digestive tract; Z87.891 Personal history of nicotine dependence; Z82.5 Family history of asthma and other chronic lower respiratory diseases; Z82.49 Family history of ischemic heart disease and other diseases of the circulatory system; Z98.42 Cataract extraction status, left eye; S22.070D Wedge compression fracture of T9-T10 vertebra, subsequent encounter for fracture with routine healing; Z98.41 Cataract extraction status, right eye; Z90.710 Acquired absence of both cervix and uterus; Z88.1 Allergy status to other antibiotic agents; Z88.8 Allergy status to other drugs, medicaments and biological substances; Z79.51 Long term (current) use of inhaled steroids; Z79.899 Other long term (current) drug therapy; Z68.22 Body mass index [BMI] 22.0-22.9, adult; J96.11 Chronic respiratory failure with hypoxia